=== PATIENT | female | born 1975 | race Caucasian/White ===

== ENCOUNTER 2017-03-08 11:39 | Inpatient (IN) | payer MEDICAID, SELFPAY ==
[2017-03-08] VITALS (10 sets, daily range): BP systolic 137–176; BP diastolic 81–116; PULSE 91–111; RESP 13–20; TEMP 36.4–37.2; O2SAT 96–100; BMI 43.7; BMI 43.8; BMI 43.0
--- NOTE | 2017-03-08 12:05 | EKG12_ITS ---
Test Reason : ABN LABS Blood Pressure : / mmHG Vent. Rate : 099 BPM Atrial Rate : 099 BPM P-R Int : 126 ms QRS Dur : 094 ms QT Int : 352 ms P-R-T Axes : 029 028 070 degrees QTc Int : 451 ms Normal sinus rhythm Septal infarct ,age undetermined Abnormal ECG Confirmed by JUAN JOSE BRADSHAW ([id number]), market editor JACOBO GILLILAND ([id number]) on 03/11/2017 4:44:44 PM Referred By: JERRY Confirmed By:JUAN JOSE BRADSHAW
[2017-03-08] MEDS: 0.9% Normal Saline 1,000 ML 150 ML IV ×3 (12:44→23:48)
[2017-03-08 12:54] LABS: Absolute Lymphocyte Count 1.17 X10^3/ul (0.83-4.51); Absolute Neutrophil Count 7.9 X10^3/uL (2.0-7.7); Basophil# 0.02 X10^3/uL; Basophil% 0.2 % (0-1); Eosinophil# 0.19 X10^3/uL; Eosinophils% 1.9 % (0-5); Hematocrit 25.5 % (37-47); Hemoglobin 9.1 g/dl (12.0-15.0); Lymphocyte # 1.17 X10^3/ul (4.0); Lymphocyte % 11.6 % (19-41); Mean Corp Hgb Conc 35.7 g/gl (32-36); Mean Corpuscular Hgb 25.1 pg (27.0-32.0); Mean Corpuscular Volume 70.4 fL (81-99); Mean Platelet Vol. 8.7 fl (6.2-12.0); Monocyte# 0.73 X10^3/uL; Monocyte% 7.3 % (0-10); Neutrophil # 7.92 X10^3/uL (2.7-7.7); Neutrophil % 78.7 % (47-70); Platelet Count 355 K/mm3 (150-450); RBC Distribution Width CV 12.1 % (11.6-14.6); RBC Distribution Width SD 30.3 fl (35.1-43.9); Red Blood Count 3.62 M/mm3 (4.2-5.4); White Blood Count 10.1 K/mm3 (4.4-11.0)
[2017-03-08 13:03] LABS: Anion Gap 14 (5-15); BUN 70 mg/dL (7-18); BUN/Creat Ratio 9.5 RATIO (10-20); Calcium,Total 9.4 mg/dL (8.5-10.1); Chloride 100 mmol/L (98-107); Creatinine, Serum 7.38 mg/dL (0.55-1.02); EST Glomerular Filtration Rate 6 mL/min (>60); Est Glom Filt Rate - Afr Amer 8 mL/min (>60); Estimated Creatinine Clearance 7.93 ml/min; Glucose 281 mg/dL (70-110); Potassium 5.1 mmol/L (3.5-5.1); Sodium Level 130 mmol/L (136-145)
[2017-03-08 13:10] LABS: Differential Indicated SCAN CRITERIA MET; POSITIVE COUNT NO; POSITIVE DIFFERENTIAL NO; POSITIVE MORPHOLOGY YES
[2017-03-08 13:53] LABS: Hypochromasia 1+
[2017-03-08 14:36] LABS: Mucous, Urine 0 SEEN /hpf (<or=2+)
[2017-03-08 14:50] LABS: Color, Urine Yellow (Yellow); Glucose, Dipstick 250 mg/dl (Normal); Ketone-Dipstick Negative (Negative); Leukocyte Esterase-Dipstick 100 /ul (Negative); Nitrite-Dipstick Negative (Negative); Occult Blood-Urine 25 /ul (Negative); Protein-Dipstick 30 mg/dl (Negative); Urine Bilirubin Dipstick Negative (Negative); Urine Clarity Sl. Cloudy (Clear); Urine Urobilinogen Normal (Normal)
[2017-03-08 15:02] LABS: Squamous Epithelial Cells - UA 0-5 SEEN /hpf (5-10)
[2017-03-08 15:03] LABS: Bacteria 1+ /hpf (None Seen); Red Blood Cells-Urine 0-5 SEEN /hpf (0-5); White Blood Cells 10-25 SEEN /hpf (0-5)
--- NOTE | 2017-03-08 15:27 | ED.VISSUMM ---
- ER Visit Summary Date of Service: 03/08/17 Chief Complaint: Sent to the emergency room because of abnormal blood work History of Present Illness: The patient is a 41 F with long-standing history of diabetes has been vomiting for the past 4-5 weeks. She was scheduled for an outpatient CT of the abdomen with p.o. and IV contrast. This was canceled because her creatinine was 8.3. She has no known history of hypertension, renal failure or any other problems. She denies fever, chills or night sweats. She denies double vision, blurred vision or loss of vision. She denies sore throat. She denies cough or shortness of breath. Denies chest pain. She denies abdominal pain. She does complain of nausea and vomiting. She denies diarrhea or constipation. She denies dysuria, frequency, urgency or hematuria. She does complain of vitamin headaches. She also admits that she does not feel well. Physical Examination: Patient vitals are remarkable for a blood pressure of 176/116. She is not febrile. Head is atraumatic normocephalic. Pupils are equal round reactive. Extraocular muscles are intact. TMs are pearly white with landmarks noted. Nares patent with no drainage. Posterior pharynx without erythema or exudate. Uvula is midline. There is no dysphonia or dysphasia. Trachea is midline. There is no stridor with auscultation of the neck. Heart is regular without murmur, gallop or rub. S1 and S2 are normal. Lungs are clear to auscultation with good movement of air bilaterally. Abdomen is soft nontender. Bowel sounds are present normal. There is no CVA tenderness noted. Lower extremity exam is unremarkable. Dermatologic exam is remarkable dry skin. Patient is alert and oriented ?3. Motor is 5 over 5. Sensory is intact. DTRs are symmetric with no clonus or Babinski sign. Cranial 2 through 12 are intact. Cerebellar testing is normal. Test Results: BC is marked for microcytic anemia with an H&H 9.1 25.5 and an MCV of 75. Electrode panel was marked for sodium 130, CO2 of 16 with anion gap of 14, glucose of 281, BUN and creatinine of 70 and 7.38 respectively. Urine is consistent with infection. Culture was sent. EKG revealed a sinus rhythm rate of 99 with decreased anterior force. Emergency Department Course and Treatment: IV fluids, 1 g of Rocephin IV piggyback. Workup included a CBC, BMP UA looking for casts. EKG was obtained looking for evidence of hyperkalemia insert creatinine is elevated. Treatment Plan: Hospitalist was paged. She requested that I contact nephrology. I did speak with the stripper color who will see the patient. Disposition: Admit med/surge unit Impression: 1. Acute kidney injury 2. Acute urinary tract infection 3. Hypertension nonhypertensive patient 4. Nausea and vomiting suspect gastroparesis 5. Microcytic anemia. 6. Hyperglycemia and type II diabetic This note was generated with [facility] dictation software. It may contain incorrect words, spelling, and punctuation that were not noted in review of the chart prior to signing ED Disposition - Plan for ED Patient: Chief Complaint: Abn Labs Referrals: Jessica Ayala NP-C [Primary Care Provider] -
--- NOTE | 2017-03-08 15:30 | ED.DCSUM_ITS ---
- ER Visit Summary Date of Service: 03/08/17 Chief Complaint: Sent to the emergency room because of abnormal blood work History of Present Illness: The patient is a 41 F with long-standing history of diabetes has been vomiting for the past 4-5 weeks. She was scheduled for an outpatient CT of the abdomen with p.o. and IV contrast. This was canceled because her creatinine was 8.3. She has no known history of hypertension, renal failure or any other problems. She denies fever, chills or night sweats. She denies double vision, blurred vision or loss of vision. She denies sore throat. She denies cough or shortness of breath. Denies chest pain. She denies abdominal pain. She does complain of nausea and vomiting. She denies diarrhea or constipation. She denies dysuria, frequency, urgency or hematuria. She does complain of vitamin headaches. She also admits that she does not feel well. Physical Examination: Patient vitals are remarkable for a blood pressure of 176/ 116. She is not febrile. Head is atraumatic normocephalic. Pupils are equal round reactive. Extraocular muscles are intact. TMs are pearly white with landmarks noted. Nares patent with no drainage. Posterior pharynx without erythema or exudate. Uvula is midline. There is no dysphonia or dysphasia. Trachea is midline. There is no stridor with auscultation of the neck. Heart is regular without murmur, gallop or rub. S1 and S2 are normal. Lungs are clear to auscultation with good movement of air bilaterally. Abdomen is soft nontender. Bowel sounds are present normal. There is no CVA tenderness noted. Lower extremity exam is unremarkable. Dermatologic exam is remarkable dry skin. Patient is alert and oriented ?3. Motor is 5 over 5. Sensory is intact. DTRs are symmetric with no clonus or Babinski sign. Cranial 2 through 12 are intact. Cerebellar testing is normal. Test Results: BC is marked for microcytic anemia with an H&H 9.1 25.5 and an MCV of 75. Electrode panel was marked for sodium 130, CO2 of 16 with anion gap of 14, glucose of 281, BUN and creatinine of 70 and 7.38 respectively. Urine is consistent with infection. Culture was sent. EKG revealed a sinus rhythm rate of 99 with decreased anterior force. Emergency Department Course and Treatment: IV fluids, 1 g of Rocephin IV piggyback. Workup included a CBC, BMP UA looking for casts. EKG was obtained looking for evidence of hyperkalemia insert creatinine is elevated. Treatment Plan: Hospitalist was paged. She requested that I contact nephrology. I did speak with the primer inserting machine adjuster who will see the patient. Disposition: Admit med/surge unit Impression: 1. Acute kidney injury 2. Acute urinary tract infection 3. Hypertension nonhypertensive patient 4. Nausea and vomiting suspect gastroparesis 5. Microcytic anemia. 6. Hyperglycemia and type II diabetic This note was generated with [employer] dictation software. It may contain incorrect words, spelling, and punctuation that were not noted in review of the chart prior to signing ED Disposition - Plan for ED Patient: Chief Complaint: Abn Labs Referrals: Jessica Ayala NP-C [Primary Care Provider] -
--- NOTE | 2017-03-08 16:01 | CT_ITS ---
STUDY: CT ABDOMEN AND PELVIS WITHOUT CONTRAST REASON FOR EXAM: Female, 41 years old. Low back pain RADIATION DOSAGE (If Supplied By Facility): CTDIvol = ( 22.32 ) mGy, DLP = ( 1093.13 ) mGycm TECHNIQUE: Transaxial images were obtained from the dome of the diaphragm to the symphysis pubis with oral contrast, and without intravenous contrast. Sagittal and coronal images were reconstructed. Individualized dose optimization techniques were used for this CT. COMPARISON: None. FINDINGS: The visualized lung bases are unremarkable. The visualized portions of the heart are within normal limits. Normal liver. Normal gallbladder and extrahepatic biliary system. Normal spleen. Normal pancreas. Normal bilateral adrenal glands. Both kidneys are normal. Both kidneys appear edematous with mild perinephric stranding. Both kidneys show moderate hydronephrosis. Several small stones are seen within a left lower pole calyx. Moderate to marked bilateral hydroureter. Markedly distended bladder with a thickened wall. Findings could represent bladder outlet obstruction and there may be cystitis. Normal visualized stomach. Normal small intestine. There are multiple colonic diverticula consistent with diverticulosis. The appendix is visualized and appears normal. Normal abdominal aorta. Normal inferior vena cava. There is borderline retroperitoneal lymphadenopathy with enlarged nodes no greater than 10mm in the short axis diameter. Normal visualized uterus. Normal abdominal wall. Normal osseous structures. CT/Abdomen/Pelvis without Cont IMPRESSION: Markedly distended bladder with a thickened wall. Moderate bilateral hydronephrosis and hydroureter. Question bladder outlet obstruction. Electronically Signed: Galdino cShulte MD at 17:02 EST , Service support ,
--- NOTE | 2017-03-08 16:06 | PCM.HP.STD ---
Problem List (1) Acute kidney injury Status: Acute (2) Type II diabetes mellitus Status: Chronic Qualifiers: Diabetes mellitus complication status: with unspecified complications Diabetes mellitus bed bug exterminator insulin use: with bed bug exterminator use Qualified Code(s): E11.8 - Type 2 diabetes mellitus with unspecified complications; Z79.4 - terminal operator (current) use of insulin; Z79.4 - terminal operator (current) use of insulin; Z79.4 - terminal operator (current) use of insulin; Z79.4 - terminal operator (current) use of insulin (3) Nausea and vomiting Status: Acute Qualifiers: Vomiting Intractability: unspecified (4) Coronary artery disease Status: Acute Qualifiers: Coronary Disease-Associated Artery/Lesion type: unspecified vessel or lesion type Associated angina: angina presence unspecified (5) Chronic low back pain Status: Chronic Qualifiers: Sciatica laterality: sciatica laterality unspecified History of Present Illness Date of Admission: 03/08/17 Chief Complaint: Abnormal labs The patient is a 41 year old F with past medical history of type 2 DM, uncontrolled, on insulin, history of CAD status post remote stents, chronic low back pain comes in because of abnormal blood work. Patient was following up with the housing grant analyst for persistent nausea and vomiting ongoing for >4-5 weeks. Asked to do a CT scan of the abdomen, and had taken in all the oral contrast. She was waiting to do the CT scan when she was told that her labs were abnormal. Her creatinine was 8.3. Patient gets most of her care from the [facility]. She admits to use of ibuprofen regularly for chronic low back pain, and has been having persistent nausea and vomiting, the last time she vomited was 2 days ago. Denied any fever or chills or shortness of breath. She denied any chest pain or dizziness or palpitations. Eyes any dysuria or frequency Vitals in the ED showed T 97.5F, HR 101, BP 152/101, RR 16, Spo2 100%. Admitting blood work shows WBC of 10.1, Hb of 9.1, platelets 355, sodium 130, potassium 5.1, chloride 100, bicarbonate 16, BUN 70, creatinine 7.38. Shows slightly cloudy urine with positive glucosuria, negative nitrites, elevated leukocyte esterase, WBC of 10-25. Past Medical History Past Medical History (Chronic Problems): Chronic Problems Type II diabetes mellitus (Chronic) Chronic low back pain (Chronic) Allergies No Known Allergies Allergy (Verified 03/08/17 11:45) Home Medications: Ambulatory Orders Medication Instructions Recorded Duloxetine Hcl [Cymbalta] 60 mg PO DAILY 03/08/17 Glimepiride [Amaryl] 4 mg PO DAILY 03/08/17 Insulin Glargine,Hum.rec.anlog 20 unit SQ QHS 03/08/17 [Lantus] Metformin(XR) [Glucophage Xr] 1,000 mg PO DAILY 03/08/17 Surgical History: no surgical history Psychiatric History: No pertinent psych hx HEEL CASER History: No pertinent HEEL CASER history Lives: Alone Smoking Status: Never smoker Tobacco Use: Non-smoker Alcohol: None Drugs: None - *Family History Maternal History Items: Unknown Review of Systems Constitutional: Denies: Anorexia, Chills, Fever, Night Sweats, Malaise, Weakness, Weight Change Eyes: Denies: Blurred vision, Cataracts, Conjunctivae Inflammation HEENT: Denies: Difficulty Hearing, Difficulty Swallowing, Head Aches, Hearing Changes, Nasal bleeding, Nasal Congestion, Sinus Congestion, Sinus Drainage Cardiovascular: Denies: Chest Pain, Claudication, Chest Pressure, Chest Tightness, Orthopnea, Palpitations, Paroxysmal Noc. Dyspnea Respiratory: Denies: Cough, Hemoptysis, Pleuritic Pain, Shortness of Breath, Shortness of breath at rest, Shortness of breath upon exertion, Sputum production Gastrointestinal: Reports: Nausea, Vomiting. Denies: Abdominal Pain Genitourinary: Denies: Dysuria, Frequency, Incontinence, Nocturia Musculoskeletal: Denies: Arm Pain, Back Pain, Joint Pain, Joint stiffness, Joint swelling, Joint Tenderness Skin: Denies: Dryness, Pruritis, Rash, Wounds Neurological: Denies: Difficulty swallowing, Focal weakness, Numbness, Tingling Psychiatric: Denies: Anxiety, Depression, Homicidal Ideations, Suicidal Ideations Hematologic/ Lymphatic: Denies: Easy Bruising, Easy Bleeding VTE Information - Inpt Only VTE Present on Admission: No VTE Mechan Device Prophylaxis: None VTE Pharm Prophylaxis ordered?: Yes Patient Problems: Active and Suspected Problems Acute kidney injury (Acute) Nausea and vomiting (Acute) Coronary artery disease (Acute) - Physical Exam General: Alert, Oriented x3, Cooperative, No apparent distress HEENT: Atraumatic, PERRLA, EOMI, Normocephalic Oral: Moist Mucosa Neck: Supple Lungs: Clear to auscultation, Normal air movement Cardiovascular: Regular rate, Regular Rhythm, Normal S1, Normal S2, No murmurs Abdomen: Bowel Sounds Present, Soft, Non Tender, Non-Distended, No Hepato-splenomegaly Extremities: No edema Skin: - - Dry skin Musculoskeletal: No Tenderness to Palpation of Joints or Extremities Neurological: Cranial nerves II-XII grossly intact, Neuro grossly intact, Motor Exam 5/5 strength throughout Psych/Mental Status: Normal Affect, Appropriate Vital Signs Temp Pulse Resp BP Pulse Ox 97.5 F L 100 13 152/102 H 99 03/08/17 12:45 03/08/17 16:00 03/08/17 16:00 03/08/17 16:00 03/08/17 16:00 Oxygen Delivery Method Room Air Weight: 108.5 kg Body Mass Index (BMI) 43.7 Laboratory Tests Past 24 Hrs 03/08/17 03/08/17 03/08/17 12:40 12:40 14:25 WBC 10.1 RBC 3.62 L Hgb 9.1 L Hct 25.5 L MCV 70.4 L MCH 25.1 L MCHC 35.7 RDW 12.1 RDW Differential 30.3 L Plt Count 355 MPV 8.7 Immature Gran % (Auto) 0.300 Neut % (Auto) 78.7 H Lymph % (Auto) 11.6 L [place] % (Auto) 7.3 Eos % (Auto) 1.9 Baso % (Auto) 0.2 Absolute Neuts (auto) 7.9 H Absolute Lymphs (auto) 1.17 Total Counted Not Reportable Hypochromasia 1+ Sodium 130 L Potassium 5.1 Chloride 100 Carbon Dioxide 16.0 L Anion Gap 14 BUN 70 H Creatinine 7.38 H Estim Creat Clear Calc 7.93 Est GFR (MDRD) Af Amer 8 L Est GFR (MDRD) Non-Af 6 L BUN/Creatinine Ratio 9.5 L Glucose 281 H Calcium 9.4 Urine Color Yellow Urine Clarity Sl. Cloudy Urine pH 6.0 Ur Specific [place] 1.010 Urine Protein 30 H Urine Glucose (UA) 250 H Urine Ketones Negative Urine Occult Blood 25 H Urine Nitrite Negative Urine Bilirubin Negative Urine Urobilinogen Normal Ur Leukocyte Esterase 100 H Urine RBC 0-5 SEEN Urine WBC 10-25 SEEN Ur Squamous Epith Cells 0-5 SEEN Urine Bacteria 1+ Urine Mucus 0 SEEN Assessment/Plan Active and Suspected Problems Acute kidney injury (Acute) Nausea and vomiting (Acute) Coronary artery disease (Acute) 41 year old F with past medical history of type 2 DM, uncontrolled, on insulin, history of CAD status post remote stents, chronic low back pain comes in because of abnormal blood work. 1. Acute kidney injury, in a patient with normal creatinine, likely secondary to NSAIDs versus severe dehydration. Plan: Admit to PCU, monitor on telemetry, nephrology consult - Dr. Benedict, urine sodium, urine creatinine, ultrasound of the kidneys and bladder, IV fluids, repeat blood work in a.m. 2. Nausea and vomiting, in a known diabetic, likely due to gastroparesis, will put on Zofran as needed, continue to monitor vitals closely 3. Type 2 DM, on insulin and metformin, would hold metformin, will continue on 10 units of levemir, continue on insulin sliding scale 4. CAD s/p remote stent, not on aspirin 5. Depression, on cymbalta 6. Chronic low back pain, was on NSAIDS, will hold for now, will give tramadol prn 7. DVT PPx - Heparin SC
--- NOTE | 2017-03-08 16:17 | HP.PCM_ITS ---
Problem List (1) Acute kidney injury Status: Acute (2) Type II diabetes mellitus Status: Chronic Qualifiers: Diabetes mellitus complication status: with unspecified complications Diabetes mellitus ferry terminal agent insulin use: with ferry terminal agent use Qualified Code(s) : E11.8 - Type 2 diabetes mellitus with unspecified complications; Z79.4 - detention (current) use of insulin; Z79.4 - detention (current) use of insulin; Z79.4 - detention (current) use of insulin; Z79.4 - vermin exterminator (current) use of insulin (3) Nausea and vomiting Status: Acute Qualifiers: Vomiting Intractability: unspecified (4) Coronary artery disease Status: Acute Qualifiers: Coronary Disease-Associated Artery/Lesion type: unspecified vessel or lesion type Associated angina: angina presence unspecified (5) Chronic low back pain Status: Chronic Qualifiers: Sciatica laterality: sciatica laterality unspecified History of Present Illness Date of Admission: 03/08/17 Chief Complaint: Abnormal labs The patient is a 41 year old F with past medical history of type 2 DM, uncontrolled, on insulin, history of CAD status post remote stents, chronic low back pain comes in because of abnormal blood work. Patient was following up with the voyage management system operator for persistent nausea and vomiting ongoing for >4-5 weeks. Asked to do a CT scan of the abdomen, and had taken in all the oral contrast. She was waiting to do the CT scan when she was told that her labs were abnormal. Her creatinine was 8.3. Patient gets most of her care from the [facility]. She admits to use of ibuprofen regularly for chronic low back pain, and has been having persistent nausea and vomiting, the last time she vomited was 2 days ago. Denied any fever or chills or shortness of breath. She denied any chest pain or dizziness or palpitations. Eyes any dysuria or frequency Vitals in the ED showed T 97.5F, HR 101, BP 152/101, RR 16, Spo2 100%. Admitting blood work shows WBC of 10.1, Hb of 9.1, platelets 355, sodium 130, potassium 5.1, chloride 100, bicarbonate 16, BUN 70, creatinine 7.38. Shows slightly cloudy urine with positive glucosuria, negative nitrites, elevated leukocyte esterase, WBC of 10-25. Past Medical History Past Medical History (Chronic Problems): Chronic Problems Type II diabetes mellitus (Chronic) Chronic low back pain (Chronic) Allergies No Known Allergies Allergy (Verified 03/08/17 11:45) Home Medications: Ambulatory Orders Medication Instructions Recorded Duloxetine Hcl [Cymbalta] 60 mg PO DAILY 03/08/17 Glimepiride [Amaryl] 4 mg PO DAILY 03/08/17 Insulin Glargine,Hum.rec.anlog 20 unit SQ QHS 03/08/17 [Lantus] Metformin(XR) [Glucophage Xr] 1,000 mg PO DAILY 03/08/17 Surgical History: no surgical history Psychiatric History: No pertinent psych hx ROUTE DELIVERY CLERK History: No pertinent ROUTE DELIVERY CLERK history Lives: Alone Smoking Status: Never smoker Tobacco Use: Non-smoker Alcohol: None Drugs: None - *Family History Maternal History Items: Unknown Review of Systems Constitutional: Denies: Anorexia, Chills, Fever, Night Sweats, Malaise, Weakness , Weight Change Eyes: Denies: Blurred vision, Cataracts, Conjunctivae Inflammation HEENT: Denies: Difficulty Hearing, Difficulty Swallowing, Head Aches, Hearing Changes, Nasal bleeding, Nasal Congestion, Sinus Congestion, Sinus Drainage Cardiovascular: Denies: Chest Pain, Claudication, Chest Pressure, Chest Tightness, Orthopnea, Palpitations, Paroxysmal Noc. Dyspnea Respiratory: Denies: Cough, Hemoptysis, Pleuritic Pain, Shortness of Breath, Shortness of breath at rest, Shortness of breath upon exertion, Sputum production Gastrointestinal: Reports: Nausea, Vomiting. Denies: Abdominal Pain Genitourinary: Denies: Dysuria, Frequency, Incontinence, Nocturia Musculoskeletal: Denies: Arm Pain, Back Pain, Joint Pain, Joint stiffness, Joint swelling, Joint Tenderness Skin: Denies: Dryness, Pruritis, Rash, Wounds Neurological: Denies: Difficulty swallowing, Focal weakness, Numbness, Tingling Psychiatric: Denies: Anxiety, Depression, Homicidal Ideations, Suicidal Ideations Hematologic/ Lymphatic: Denies: Easy Bruising, Easy Bleeding VTE Information - Inpt Only VTE Present on Admission: No VTE Mechan Device Prophylaxis: None VTE Pharm Prophylaxis ordered?: Yes Patient Problems: Active and Suspected Problems Acute kidney injury (Acute) Nausea and vomiting (Acute) Coronary artery disease (Acute) - Physical Exam General: Alert, Oriented x3, Cooperative, No apparent distress HEENT: Atraumatic, PERRLA, EOMI, Normocephalic Oral: Moist Mucosa Neck: Supple Lungs: Clear to auscultation, Normal air movement Cardiovascular: Regular rate, Regular Rhythm, Normal S1, Normal S2, No murmurs Abdomen: Bowel Sounds Present, Soft, Non Tender, Non-Distended, No Hepato- splenomegaly Extremities: No edema Skin: - - Dry skin Musculoskeletal: No Tenderness to Palpation of Joints or Extremities Neurological: Cranial nerves II-XII grossly intact, Neuro grossly intact, Motor Exam 5/5 strength throughout Psych/Mental Status: Normal Affect, Appropriate Vital Signs Temp Pulse Resp BP Pulse Ox 97.5 F L 100 13 152/102 H 99 03/08/17 12:45 03/08/17 16:00 03/08/17 16:00 03/08/17 16:00 03/08/17 16:00 Oxygen Delivery Method Room Air Weight: 108.5 kg Body Mass Index (BMI) 43.7 Laboratory Tests Past 24 Hrs 03/08/17 03/08/17 03/08/17 12:40 12:40 14:25 WBC 10.1 RBC 3.62 L Hgb 9.1 L Hct 25.5 L MCV 70.4 L MCH 25.1 L MCHC 35.7 RDW 12.1 RDW Differential 30.3 L Plt Count 355 MPV 8.7 Immature Gran % (Auto) 0.300 Neut % (Auto) 78.7 H Lymph % (Auto) 11.6 L [place] % (Auto) 7.3 Eos % (Auto) 1.9 Baso % (Auto) 0.2 Absolute Neuts (auto) 7.9 H Absolute Lymphs (auto) 1.17 Total Counted Not Reportable Hypochromasia 1+ Sodium 130 L Potassium 5.1 Chloride 100 Carbon Dioxide 16.0 L Anion Gap 14 BUN 70 H Creatinine 7.38 H Estim Creat Clear Calc 7.93 Est GFR (MDRD) Af Amer 8 L Est GFR (MDRD) Non-Af 6 L BUN/Creatinine Ratio 9.5 L Glucose 281 H Calcium 9.4 Urine Color Yellow Urine Clarity Sl. Cloudy Urine pH 6.0 Ur Specific [place] 1.010 Urine Protein 30 H Urine Glucose (UA) 250 H Urine Ketones Negative Urine Occult Blood 25 H Urine Nitrite Negative Urine Bilirubin Negative Urine Urobilinogen Normal Ur Leukocyte Esterase 100 H Urine RBC 0-5 SEEN Urine WBC 10-25 SEEN Ur Squamous Epith Cells 0-5 SEEN Urine Bacteria 1+ Urine Mucus 0 SEEN Assessment/Plan Active and Suspected Problems Acute kidney injury (Acute) Nausea and vomiting (Acute) Coronary artery disease (Acute) 41 year old F with past medical history of type 2 DM, uncontrolled, on insulin, history of CAD status post remote stents, chronic low back pain comes in because of abnormal blood work. 1. Acute kidney injury, in a patient with normal creatinine, likely secondary to NSAIDs versus severe dehydration. Plan: Admit to PCU, monitor on telemetry, nephrology consult - Dr. Benedict, urine sodium, urine creatinine, ultrasound of the kidneys and bladder, IV fluids, repeat blood work in a.m. 2. Nausea and vomiting, in a known diabetic, likely due to gastroparesis, will put on Zofran as needed, continue to monitor vitals closely 3. Type 2 DM, on insulin and metformin, would hold metformin, will continue on 10 units of levemir, continue on insulin sliding scale 4. CAD s/p remote stent, not on aspirin 5. Depression, on cymbalta 6. Chronic low back pain, was on NSAIDS, will hold for now, will give tramadol prn 7. DVT PPx - Heparin SC
[2017-03-08] MEDS: Ceftriaxone 1 GM/50 ML BAG IV (16:36)
[2017-03-08] MEDS: Labetalol 100 MG/20 ML Vial 10 MG IV (16:37)
--- NOTE | 2017-03-08 18:02 | US_ITS ---
STUDY: RENAL ULTRASOUND - COMPLETE REASON FOR EXAM: Female, 41 years old. Acute renal failure. TECHNIQUE: Ultrasound evaluation of the kidneys was performed with real-time and static carey-scale imaging. COMPARISON: CT scan of earlier today which showed massive distention of the bladder.. FINDINGS: RIGHT KIDNEY: Normal location of the right kidney, which is normal in size. The right kidney measures 12.3 x 6.1 x 5.2 cm. There is a normal cortex of the right kidney. The renal cortex measures 1.5 cm. There is no right renal mass or cyst. There are no right renal calculi. There is moderate hydronephrosis of the right kidney. DISTAL RIGHT URETER: There is non-visualization of the distal right ureter. There is no demonstrated right ureterovesical junction calculus. There is no demonstrated right ureteral jet. LEFT KIDNEY: Normal location of the left kidney, which is normal in size. The left kidney measures 12.6 x 6.7 x 6.3 cm. There is a normal cortex of the left kidney. The renal cortex measures 1.8 cm. There is no left renal mass or cyst. There is an 8 mm stone in the lower pole. There is moderate hydronephrosis of the left kidney. DISTAL LEFT URETER: There is non-visualization of the distal left ureter. There is no demonstrated left ureterovesical junction calculus. There is a visualized left ureteral jet. BLADDER: There is a Ross catheter in the bladder. The distended urinary bladder has a volume of 424 ml. There is diffuse thickening of the bladder wall measuring 1 cm, and there is echogenic material or mass in the bladder. Cystoscopy recommended. US/Kidney and Bladder IMPRESSION: Continued hydronephrosis of both kidneys status post Ross catheter. Abnormal bladder with a thickened wall and intraluminal echogenic material or mass. Cystoscopy recommended. Electronically Signed: Galdino Schulte MD at 21:31 EST , Service support ,
--- NOTE | 2017-03-08 18:02 | ECHOD_ITS ---
Reason For Study: CAD/ASHD Procedure This was a 2D Doppler, Color Flow transthoracic echocardiogram. Technically difficult study, patient scanned sitting upright due to nausea. Exam performed portable in patient room. Left Ventricle Normal size and thickness. The estimated ejection fraction is 65 %. Stage 1 diastolic dysfunction. No regional wall motion abnormalities noted. Right Ventricle Normal size and thickness. Normal systolic function. Atria Normal left atrium. Normal right atrium. Normal atrial septum. Mitral Valve The mitral valve is structurally normal. No prolapse or stenosis seen. Tricuspid Valve Normal tricuspid valve. Unable to estimate RV systolic pressure/pulmonary artery pressure due to technically difficult study. Aortic Valve Normal aortic valve. Trisinus/trileaflet aortic valve. Pulmonic Valve Normal pulmonic valve. Great Vessels Normal aortic root. Normal arch. Normal inferior vena cava. Inferior vena cava collapse with sniff. Pericardium/Pleural No pericardial effusion. MMode/2D Measurements & Calculations LVIDd: 4.5 cm IVSd: 1.2 cm LVIDs: 3.1 cm LVPWd: 1.2 cm FS: 32.4 % Time Measurements MV dec time: 0.14 sec Doppler Measurements & Calculations MV E max south: 85.8 cm/sec Lat Peak E' South: 14.0 cm/sec Med Peak E' South: 9.5 cm/sec MV A max south: 113.7 cm/sec E/E' lat: 6.1 E/E' med: 9.1 MV E/A: 0.75 Ao V2 max: 158.4 cm/sec LV V1 max: 115.0 cm/sec PA V2 max: 45.4 cm/sec Ao max P.1 mmHg LV V1 max P.3 mmHg Ao V2 mean: 95.9 cm/sec LV V1 mean P.9 mmHg Ao mean P.5 mmHg LV V1 mean: 78.5 cm/sec Ao V2 VTI: 20.4 cm LV V1 VTI: 20.8 cm Interpretation Summary The estimated ejection fraction is 65 %. Stage 1 diastolic dysfunction. Unable to estimate RV systolic pressure/pulmonary artery pressure due to technically difficult study. The study was technically difficult. There is no comparison study available. Ordering Physician: Jaimee Horner Referring Physician: NIC MARQUES Performed By: Saleem Yates RCS
[2017-03-08 19:06] LABS: Bedside Glucose 233 mg/dL (70-110)
[2017-03-08 20:15] LABS: Ferritin 442 ng/mL (8-252); Iron 34 ug/dL (50-170); Iron Binding Capacity,Total 214 ug/dL (250-450); PERCENT IRON SATURATION 15.9 % (15.0-55.0)
[2017-03-08 20:34] LABS: Urine Sodium 23 mmol/L (Not Establ.)
[2017-03-08] MEDS: Heparin Injection 5,000 UNITS/ML Syringe 5000 UNITS SC (21:17)
[2017-03-08] MEDS: Famotidine 20 MG Tablet PO (21:18)
[2017-03-08 21:41] LABS: Bedside Glucose 284 mg/dL (70-110)
[2017-03-09] VITALS (11 sets, daily range): BP systolic 125–158; BP diastolic 65–94; PULSE 102–111; RESP 16–18; TEMP 36.7–37.2; O2SAT 96–100
[2017-03-09] MEDS: 0.9% Normal Saline 1,000 ML 150 ML IV ×2 (06:31→13:15)
[2017-03-09 06:56] LABS: Bedside Glucose 251 mg/dL (70-110)
[2017-03-09 06:59] LABS: Hematocrit 20.8 % (37-47); Hemoglobin 7.3 g/dl (12.0-15.0); Mean Corp Hgb Conc 35.1 g/gl (32-36); Mean Corpuscular Volume 71.2 fL (81-99); Platelet Count 306 K/mm3 (150-450); RBC Distribution Width SD 30.2 fl (35.1-43.9); Red Blood Count 2.92 M/mm3 (4.2-5.4); White Blood Count 9.2 K/mm3 (4.4-11.0)
[2017-03-09 07:00] LABS: Scan Indicated on CBC? Y/N YES- FLAGS NOTED
[2017-03-09 07:53] LABS: Anion Gap 12 (5-15); BUN 61 mg/dL (7-18); BUN/Creat Ratio 10.7 RATIO (10-20); Calcium,Total 8.5 mg/dL (8.5-10.1); Chloride 107 mmol/L (98-107); Creatinine, Serum 5.69 mg/dL (0.55-1.02); EST Glomerular Filtration Rate 9 mL/min (>60); Est Glom Filt Rate - Afr Amer 11 mL/min (>60); Estimated Creatinine Clearance 10.29 ml/min; Glucose 234 mg/dL (70-110); Potassium 4.6 mmol/L (3.5-5.1); Sodium Level 134 mmol/L (136-145)
[2017-03-09] MEDS: Famotidine 20 MG Tablet PO ×2 (09:14→21:42)
[2017-03-09] MEDS: DULoxetine Hcl 60 MG Capsule PO (09:14)
[2017-03-09 11:16] LABS: Bedside Glucose 401 mg/dL (70-110)
--- NOTE | 2017-03-09 11:49 | PCM.PN.HOSP ---
Patient Problems: Active and Suspected Problems Acute kidney injury (Acute) Nausea and vomiting (Acute) Coronary artery disease (Acute) Subjective: Ms Malik is a 41 year old F with past medical history of type 2 DM, uncontrolled, on insulin, history of CAD status post remote stents, chronic low back pain who was admitted due to abnormal bloodwork. She is being managed for FRANSICO. Initial labs on admission showed Hb of 9.1, platelets 355, sodium 130, potassium 5.1, chloride 100, bicarbonate 16, BUN 70, creatinine 7.38. Shows slightly cloudy urine with positive glucosuria, negative nitrites, elevated leukocyte esterase, WBC of 10-25. She had a history significant for chronic ibuprofen use for back pain. CT of abdomen done showed bilateral mild hydronephrosis and hydroureters, and an enlarged, thickened bladder. Creatinine on admission was 8.3, and is down to 5.9 today. Cr was normal 2 years ago. Objective: Patient seen and examined today. Nurse complains of bloody urine in the catheter. Patient complains of discomfort with a catheter and once the catheter out. Bloody urine noted in the catheter. Patient denies previous history of such blood in her catheter and complains that the insertion of the catheter was probably traumatic in the ED yesterday. Hemoglobin has dropped today from 9 to 7. She has no other focus of bleeding. Patient denies any other complaints and is actually looking forward to going home. She admits to not being compliant with her diabetes medication Wells at home and she attributes this to depression. Vitals/I&O's: Vital Signs Temp Pulse Resp BP Pulse Ox 98.8 F 105 H 16 128/65 H 100 03/09/17 09:28 03/09/17 11:03 03/09/17 09:28 03/09/17 09:28 03/09/17 09:28 Oxygen Delivery Method Room Air Weight: 235 lb 7.259 oz Body Mass Index (BMI) 43.0 Intake and Output for Last 24 Hours 03/07/17 03/08/17 03/09/17 23:59 23:59 23:59 Intake Total 2642 / 2642 Output Total 1500 / 1500 3050 / 3050 Balance -1500 / -1500 -408 / -408 General: Alert, Oriented x3, Cooperative, No apparent distress HEENT: Atraumatic, PERRLA Oral: Moist Mucosa Neck: Supple, No JVD Lungs: Clear to auscultation, Normal air movement Cardiovascular: Regular rate, Regular Rhythm, Normal S1, Normal S2, No murmurs Abdomen: Bowel Sounds Present, Soft, Non Tender, Non-Distended, No Hepato-splenomegaly Extremities: No clubbing, No cyanosis, No edema Skin: No rashes Neurological: Cranial nerves II-XII grossly intact, Neuro grossly intact Psych/Mental Status: Appropriate, Alert and oriented to time, place, person, mood and affect Laboratory Results 03/08/17 18:59: POC Glucose 233 H 03/08/17 19:10: Hemoglobin A1c 15.0 H 03/08/17 19:10: Iron 34 L, TIBC 214 L, Iron Saturation 15.9, Ferritin 442 H 03/08/17 19:10: Troponin I < 0.02 03/08/17 21:14: POC Glucose 284 H 03/08/17 23:06: Troponin I < 0.02 03/09/17 06:30: Sodium 134 L, Potassium 4.6, Chloride 107, Carbon Dioxide 15.0 L, Anion Gap 12, BUN 61 H, Creatinine 5.69 H, Estim Creat Clear Calc 10.29, Est GFR (MDRD) Af Amer 11 L, Est GFR (MDRD) Non-Af 9 L, BUN/Creatinine Ratio 10.7, Glucose 234 H, Calcium 8.5, Troponin I < 0.02 03/09/17 06:30: WBC 9.2, RBC 2.92 L, Hgb 7.3 L, Hct 20.8 L, MCV 71.2 L, MCH 25.0 L, MCHC 35.1, RDW 12.0, RDW Differential 30.2 L, Plt Count 306, MPV 9.0, Differential Comment 03/09/17 06:41: POC Glucose 251 H 03/09/17 11:07: POC Glucose 401 H Current Medications Dextrose (D50w Syringe) 0 gm IV X1 PRN; Protocol PRN Reason: Hypoglycemia Duloxetine HCl (Cymbalta) 60 mg PO DAILY [facility] Last Admin: 03/09/17 09:14 Dose: 60 mg Famotidine (Pepcid) 20 mg PO BID [facility] Last Admin: 03/09/17 09:14 Dose: 20 mg Glucagon () 1 mg IM .X1 PRN PRN Reason: Hypoglycemia Heparin Sodium (Porcine) () 5,000 units SC BID [facility] Last Admin: 03/09/17 09:14 Dose: Not Given Hydralazine HCl (Apresoline) 5 mg IV Q6H PRN PRN PRN Reason: blood pressure Sodium Chloride () 1,000 mls @ 150 mls/hr IV .Q6H40M [facility] Stop: 03/09/17 14:01 Last Admin: 03/09/17 06:31 Dose: 150 mls/hr Insulin Aspart (Novolog Flexpen ([facility])) 0 units SC ACHS [facility] PRN Reason: Protocol Last Admin: 03/09/17 11:09 Dose: 4 units Insulin Detemir (Levemir ([facility])) 20 units SC QHS [facility] Magnesium Hydroxide (Milk Of Magnesia) 30 ml PO DAILY PRN PRN Reason: Constipation Ondansetron HCl (Zofran) 4 mg IV Q6H PRN PRN PRN Reason: NAUSEA/VOMITING Psyllium Hydrophilic Mucilloid (Metamucil) 1 packet PO DAILY PRN PRN PRN Reason: CONSTIPATION Sodium Chloride () 5 - 30 ml IV UD PRN PRN Reason: SALINE FLUSH Assessment/Plan Active and Suspected Problems Acute kidney injury (Acute) Nausea and vomiting (Acute) Coronary artery disease (Acute) 41 year old F with past medical history of type 2 DM, uncontrolled, on insulin, history of CAD status post remote stents, chronic low back pain comes in because of abnormal blood work. 1. Acute kidney injury likely due to an obstructive uropathy, less likely rhabdomyolysis -Patient had a normal creatinine 2 years ago. Admitting creatinine was around 7. Creatinine is down to 5.9 today. - patient was tachycardic overnight (HR in 100s-110s); vitals were otherwise stable -Patient does have a history of taking NSAIDs and this could be a cause of the HPI as well. However CT of the abdomen showed an enlarged thickened bladder with hydro-ureters and hydronephrosis leading to the likelihood of an obstructive uropathy. -Urine output over the last 24 hours is approximately 4 L. Nurse complains of blood in the catheter. This was also visualized during examination. -We will maintain urinary catheter in place and get urgent urology consult. -We will continue hydrating with IV fluids currently running at 150 cc/h. -Since urine analysis was positive for blood but negative for RBCs will order creatinine kinase to assess for rhabdomyolysis as a cause of the FRANSICO also. -We will monitor input and output. -will type and cross blood, due to fall in HB from 9 to 7 overnight -nephrology also on board 2. Hematuria likely due to obstructive uropathy - please refer above -urology consulted -patient's Hb fell from 9 on admission to 7 today -will continue IVF hydration to flush the kidneys -will await urology recommendations; will likely need cystoscopy 3. [place]ongap metabolic acidosis, likely due to FRANSICO -Anion gap is ~ 12 today, with bicarb of ~ 15 - may be due to RTA from FRANSICO - nephrology on board; will await recomendations 4. Type 2 DM -very poorly controlled. A1C was 15 on admission -admits to not being compliant with her meds due to depression -on insulin; metformin on hold due to FRANSICO. -currently on levemir 10IU and insulin sliding scale -nausea and vomiting have currently resolved. On Zofran prn 5. Anemia possibly due to acute blood loss from hematuria -Hb on admission was 9; down to 7 today. this could be dilutional, due to IVF administration. -iron panel was showed low iron levels of 34, low TIBC of 214 and elevated ferritin of 442, indicating anemia of chronic disease picture. -However, in light of bloody urine in catheter, will type and crossmatch blood. 6. CAD s/p remote stent placement -stable. Not on aspirin 7. Depression -on cymbalta 6. Chronic low back pain -admitted to chronic ibuprofen use for back pain. Ibuprofen on hold due to FRANSICO -on tramadol for pain 7. DVT prophylaxis - currently on heparin. Will hold heparin in light of hematuria and put on SCDs. Code Visit Inpatient E&M: 31517 Subs Hosp L3
--- NOTE | 2017-03-09 11:55 | PN_ITS ---
Patient Problems: Active and Suspected Problems Acute kidney injury (Acute) Nausea and vomiting (Acute) Coronary artery disease (Acute) Subjective: Ms Malik is a 41 year old F with past medical history of type 2 DM, uncontrolled , on insulin, history of CAD status post remote stents, chronic low back pain who was admitted due to abnormal bloodwork. She is being managed for FRANSICO. Initial labs on admission showed Hb of 9.1, platelets 355, sodium 130, potassium 5.1, chloride 100, bicarbonate 16, BUN 70, creatinine 7.38. Shows slightly cloudy urine with positive glucosuria, negative nitrites, elevated leukocyte esterase, WBC of 10-25. She had a history significant for chronic ibuprofen use for back pain. CT of abdomen done showed bilateral mild hydronephrosis and hydroureters, and an enlarged, thickened bladder. Creatinine on admission was 8.3, and is down to 5.9 today. Cr was normal 2 years ago. Objective: Patient seen and examined today. Nurse complains of bloody urine in the catheter. Patient complains of discomfort with a catheter and once the catheter out. Bloody urine noted in the catheter. Patient denies previous history of such blood in her catheter and complains that the insertion of the catheter was probably traumatic in the ED yesterday. Hemoglobin has dropped today from 9 to 7. She has no other focus of bleeding. Patient denies any other complaints and is actually looking forward to going home. She admits to not being compliant with her diabetes medication Wells at home and she attributes this to depression. Vitals/I&O's: Vital Signs Temp Pulse Resp BP Pulse Ox 98.8 F 105 H 16 128/65 H 100 03/09/17 09:28 03/09/17 11:03 03/09/17 09:28 03/09/17 09:28 03/09/17 09:28 Oxygen Delivery Method Room Air Weight: 235 lb 7.259 oz Body Mass Index (BMI) 43.0 Intake and Output for Last 24 Hours 03/07/17 03/08/17 03/09/17 23:59 23:59 23:59 Intake Total 2642 / 2642 Output Total 1500 / 1500 3050 / 3050 Balance -1500 / -1500 -408 / -408 General: Alert, Oriented x3, Cooperative, No apparent distress HEENT: Atraumatic, PERRLA Oral: Moist Mucosa Neck: Supple, No JVD Lungs: Clear to auscultation, Normal air movement Cardiovascular: Regular rate, Regular Rhythm, Normal S1, Normal S2, No murmurs Abdomen: Bowel Sounds Present, Soft, Non Tender, Non-Distended, No Hepato- splenomegaly Extremities: No clubbing, No cyanosis, No edema Skin: No rashes Neurological: Cranial nerves II-XII grossly intact, Neuro grossly intact Psych/Mental Status: Appropriate, Alert and oriented to time, place, person, mood and affect Laboratory Results 03/08/17 18:59: POC Glucose 233 H 03/08/17 19:10: Hemoglobin A1c 15.0 H 03/08/17 19:10: Iron 34 L, TIBC 214 L, Iron Saturation 15.9, Ferritin 442 H 03/08/17 19:10: Troponin I < 0.02 03/08/17 21:14: POC Glucose 284 H 03/08/17 23:06: Troponin I < 0.02 03/09/17 06:30: Sodium 134 L, Potassium 4.6, Chloride 107, Carbon Dioxide 15.0 L , Anion Gap 12, BUN 61 H, Creatinine 5.69 H, Estim Creat Clear Calc 10.29, Est GFR (MDRD) Af Amer 11 L, Est GFR (MDRD) Non-Af 9 L, BUN/Creatinine Ratio 10.7, Glucose 234 H, Calcium 8.5, Troponin I < 0.02 03/09/17 06:30: WBC 9.2, RBC 2.92 L, Hgb 7.3 L, Hct 20.8 L, MCV 71.2 L, MCH 25.0 L, MCHC 35.1, RDW 12.0, RDW Differential 30.2 L, Plt Count 306, MPV 9.0, Differential Comment 03/09/17 06:41: POC Glucose 251 H 03/09/17 11:07: POC Glucose 401 H Current Medications Dextrose (D50w Syringe) 0 gm IV X1 PRN; Protocol PRN Reason: Hypoglycemia Duloxetine HCl (Cymbalta) 60 mg PO DAILY [facility] Last Admin: 03/09/17 09:14 Dose: 60 mg Famotidine (Pepcid) 20 mg PO BID [facility] Last Admin: 03/09/17 09:14 Dose: 20 mg Glucagon () 1 mg IM .X1 PRN PRN Reason: Hypoglycemia Heparin Sodium (Porcine) () 5,000 units SC BID [facility] Last Admin: 03/09/17 09:14 Dose: Not Given Hydralazine HCl (Apresoline) 5 mg IV Q6H PRN PRN PRN Reason: blood pressure Sodium Chloride () 1,000 mls @ 150 mls/hr IV .Q6H40M [facility] Stop: 03/09/17 14:01 Last Admin: 03/09/17 06:31 Dose: 150 mls/hr Insulin Aspart (Novolog Flexpen ([facility])) 0 units SC ACHS [facility] PRN Reason: Protocol Last Admin: 03/09/17 11:09 Dose: 4 units Insulin Detemir (Levemir ([facility])) 20 units SC QHS [facility] Magnesium Hydroxide (Milk Of Magnesia) 30 ml PO DAILY PRN PRN Reason: Constipation Ondansetron HCl (Zofran) 4 mg IV Q6H PRN PRN PRN Reason: NAUSEA/VOMITING Psyllium Hydrophilic Mucilloid (Metamucil) 1 packet PO DAILY PRN PRN PRN Reason: CONSTIPATION Sodium Chloride () 5 - 30 ml IV UD PRN PRN Reason: SALINE FLUSH Assessment/Plan Active and Suspected Problems Acute kidney injury (Acute) Nausea and vomiting (Acute) Coronary artery disease (Acute) 41 year old F with past medical history of type 2 DM, uncontrolled, on insulin, history of CAD status post remote stents, chronic low back pain comes in because of abnormal blood work. 1. Acute kidney injury likely due to an obstructive uropathy, less likely rhabdomyolysis -Patient had a normal creatinine 2 years ago. Admitting creatinine was around 7. Creatinine is down to 5.9 today. - patient was tachycardic overnight (HR in 100s-110s); vitals were otherwise stable -Patient does have a history of taking NSAIDs and this could be a cause of the HPI as well. However CT of the abdomen showed an enlarged thickened bladder with hydro-ureters and hydronephrosis leading to the likelihood of an obstructive uropathy. -Urine output over the last 24 hours is approximately 4 L. Nurse complains of blood in the catheter. This was also visualized during examination. -We will maintain urinary catheter in place and get urgent urology consult. -We will continue hydrating with IV fluids currently running at 150 cc/h. -Since urine analysis was positive for blood but negative for RBCs will order creatinine kinase to assess for rhabdomyolysis as a cause of the FRANSICO also. -We will monitor input and output. -will type and cross blood, due to fall in HB from 9 to 7 overnight -nephrology also on board 2. Hematuria likely due to obstructive uropathy - please refer above -urology consulted -patient's Hb fell from 9 on admission to 7 today -will continue IVF hydration to flush the kidneys -will await urology recommendations; will likely need cystoscopy 3. [place] metabolic acidosis, likely due to FRANSICO -Anion gap is ~ 12 today, with bicarb of ~ 15 - may be due to RTA from FRANSICO - nephrology on board; will await recomendations 4. Type 2 DM -very poorly controlled. A1C was 15 on admission -admits to not being compliant with her meds due to depression -on insulin; metformin on hold due to FRANSICO. -currently on levemir 10IU and insulin sliding scale -nausea and vomiting have currently resolved. On Zofran prn 5. Anemia possibly due to acute blood loss from hematuria -Hb on admission was 9; down to 7 today. this could be dilutional, due to IVF administration. -iron panel was showed low iron levels of 34, low TIBC of 214 and elevated ferritin of 442, indicating anemia of chronic disease picture. -However, in light of bloody urine in catheter, will type and crossmatch blood. 6. CAD s/p remote stent placement -stable. Not on aspirin 7. Depression -on cymbalta 6. Chronic low back pain -admitted to chronic ibuprofen use for back pain. Ibuprofen on hold due to FRANSICO -on tramadol for pain 7. DVT prophylaxis - currently on heparin. Will hold heparin in light of hematuria and put on SCDs. Code Visit Inpatient E&M: 93026 Subs Hosp L3
[2017-03-09 13:53] LABS: Hematocrit 21.8 % (37-47); Hemoglobin 7.4 g/dl (12.0-15.0)
[2017-03-09 14:14] LABS: CPK Total, Creatine Kinase 53 U/L (26-192)
[2017-03-09 16:22] LABS: Bedside Glucose 292 mg/dL (70-110)
--- NOTE | 2017-03-09 18:11 | CON.PCM_ITS ---
Problem List (1) Acute kidney injury Status: Acute Consultation - Renal PCP/ Referring MD: Requesting physician: [] Primary care physician: ASHTYN Fischer - History of Present Illness History of Present Illness: 41 year old F with past medical history was admitted on 03/08 for abnormal blood work which was discovered by her electronics tester. Lab showed FRANSICO with Cr 8.0 mg/dL. Patient has been having persistent nausea vomiting for 4-5 days. Also the patient has been taking ibuprofen 600 mg every other day for the last 6 weeks. Patient denied any IV contrast exposure. Patient said a schmidt cath was placed in ED yesterday with immediate 2L urine return. now she has schmidt cath which is draining bloody urine. on IVF 150 cc/hour. Kidney function is improving ROS: 12 systems review is negative today - Allergies Allergies: Allergies No Known Allergies Allergy (Verified 03/08/17 11:45) - Current Medications Current Medications: Current Medications Dextrose (D50w Syringe) 0 gm IV X1 PRN; Protocol PRN Reason: Hypoglycemia Duloxetine HCl (Cymbalta) 60 mg PO DAILY [facility] Last Admin: 03/09/17 09:14 Dose: 60 mg Famotidine (Pepcid) 20 mg PO BID [facility] Last Admin: 03/09/17 09:14 Dose: 20 mg Glucagon () 1 mg IM .X1 PRN PRN Reason: Hypoglycemia Hydralazine HCl (Apresoline) 5 mg IV Q6H PRN PRN PRN Reason: blood pressure Insulin Aspart (Novolog Flexpen (Bkc)) 0 units SC ACHS [facility] PRN Reason: Protocol Last Admin: 03/09/17 16:37 Dose: 3 units Insulin Detemir (Levemir (Bkc)) 20 units SC QHS [facility] Magnesium Hydroxide (Milk Of Magnesia) 30 ml PO DAILY PRN PRN Reason: Constipation Ondansetron HCl (Zofran) 4 mg IV Q6H PRN PRN PRN Reason: NAUSEA/VOMITING Psyllium Hydrophilic Mucilloid (Metamucil) 1 packet PO DAILY PRN PRN PRN Reason: CONSTIPATION Sodium Chloride () 5 - 30 ml IV UD PRN PRN Reason: SALINE FLUSH - Past Medical History Past Medical History (Chronic Problems): Chronic Problems Type II diabetes mellitus (Chronic) Chronic low back pain (Chronic) - Past Surgical History Surgical History: no surgical history - Social History Smoking Status: Never smoker Alcohol: None Drugs: None - Family History Maternal History Items: Unknown Patient Problems: Active and Suspected Problems Acute kidney injury (Acute) Nausea and vomiting (Acute) Coronary artery disease (Acute) - Physical Exam General: Alert, Oriented x3 HEENT: Atraumatic Oral: Moist Mucosa, Dry Mucosa Neck: Supple, No JVD Lungs: Clear to auscultation, Normal air movement, No rhonchi, No wheeze Cardiovascular: Regular rate, Regular Rhythm, Normal S1, Normal S2, No murmurs Abdomen: Bowel Sounds Present, Soft, Non Tender, Non-Distended Extremities: No clubbing, No cyanosis, No edema Skin: No rashes Musculoskeletal: No Tenderness to Palpation of Joints or Extremities Lymphatic: No Cervical, Supraclavicular, or Inguinal Adenopathy Neurological: Cranial nerves II-XII grossly intact, Neuro grossly intact Psych/Mental Status: Normal Affect Vital Signs Temp Pulse Resp BP Pulse Ox 98.6 F 106 H 16 125/75 H 96 03/09/17 17:24 03/09/17 17:24 03/09/17 17:24 03/09/17 17:24 03/09/17 17:24 Oxygen Delivery Method Room Air Weight: 106.8 kg Body Mass Index (BMI) 43.0 Intake and Output for Last 24 Hours 03/07/17 03/08/17 03/09/17 23:59 23:59 23:59 Intake Total 4527 / 4527 Output Total 1500 / 1500 5400 / 5400 Balance -1500 / -1500 -873 / -873 Laboratory Tests Past 24 Hrs 03/08/17 03/08/17 03/08/17 19:10 19:10 19:10 WBC RBC Hgb Hct MCV MCH MCHC RDW RDW Differential Plt Count MPV Differential Comment Sodium Potassium Chloride Carbon Dioxide Anion Gap BUN Creatinine Estim Creat Clear Calc Est GFR (MDRD) Af Amer Est GFR (MDRD) Non-Af BUN/Creatinine Ratio Glucose Hemoglobin A1c 15.0 H Calcium Iron 34 L TIBC 214 L Iron Saturation 15.9 Ferritin 442 H Total Creatine Kinase Troponin I < 0.02 Blood Type Antibody Screen Crossmatch 03/08/17 03/09/17 03/09/17 23:06 06:30 06:30 WBC 9.2 RBC 2.92 L Hgb 7.3 L Hct 20.8 L MCV 71.2 L MCH 25.0 L MCHC 35.1 RDW 12.0 RDW Differential 30.2 L Plt Count 306 MPV 9.0 Differential Comment Sodium 134 L Potassium 4.6 Chloride 107 Carbon Dioxide 15.0 L Anion Gap 12 BUN 61 H Creatinine 5.69 H Estim Creat Clear Calc 10.29 Est GFR (MDRD) Af Amer 11 L Est GFR (MDRD) Non-Af 9 L BUN/Creatinine Ratio 10.7 Glucose 234 H Hemoglobin A1c Calcium 8.5 Iron TIBC Iron Saturation Ferritin Total Creatine Kinase Troponin I < 0.02 < 0.02 Blood Type Antibody Screen Crossmatch 03/09/17 03/09/17 03/09/17 06:30 13:26 13:26 WBC RBC Hgb 7.4 L Hct 21.8 L MCV MCH MCHC RDW RDW Differential Plt Count MPV Differential Comment Sodium Potassium Chloride Carbon Dioxide Anion Gap BUN Creatinine Estim Creat Clear Calc Est GFR (MDRD) Af Amer Est GFR (MDRD) Non-Af BUN/Creatinine Ratio Glucose Hemoglobin A1c Calcium Iron TIBC Iron Saturation Ferritin Total Creatine Kinase 53 Troponin I Blood Type A POSITIVE Antibody Screen NEGATIVE Crossmatch See Detail POC Glucose 03/09/17 03/09/17 03/09/17 15:57 11:07 06:41 POC Glucose 292 H 401 H 251 H 03/08/17 03/08/17 21:14 18:59 POC Glucose 284 H 233 H Assessment/Plan Active and Suspected Problems Acute kidney injury (Acute) Nausea and vomiting (Acute) Coronary artery disease (Acute) 1- FRANSICO due due to post renal obstruction from DENNISON Kidney US showed thickened wall bladder with b/l hydronephrosis Cr peaked at 8.0. improving with schmidt cath placement and urine drainage. Cr today 5.4 mg/dL No need for ACCOUNT RESOLUTION SPECIALIST Avoid ACEI Watch for polyuria from tubular dysfunction after relieving the obstruction. 2- Metabolic acidosis from FRANSICO. no need for NaHCO3 replacement. Will monitor 3- Hyponatremia from poor oral intake due to nausea vomiting. improved with IVF. Now off IVF. encouraged food intake 4- Hematuria. most probably traumatic from schmidt cath placement. please consult urology service for BI. please resume IVF for continuos flushing to prevent bladder clots formation 5- DENNISON. please consult urology service 6- HTN: BP is well controlled. continue hydralazine PRN. avoid ACEI/ARB Thank you for the consult. Please don't hesitate to call my at my cell with any question Radha Britton MD [phone]
[2017-03-09 18:24] LABS: Mucous, Urine 0 SEEN /hpf (<or=2+)
[2017-03-09 18:29] LABS: Color, Urine Red (Yellow); Glucose, Dipstick 250 mg/dl (Normal); Ketone-Dipstick Negative (Negative); Leukocyte Esterase-Dipstick 25 /ul (Negative); Nitrite-Dipstick Negative (Negative); Occult Blood-Urine 250 /ul (Negative); Protein-Dipstick 500 mg/dl (Negative); Urine Bilirubin Dipstick Negative (Negative); Urine Clarity Turbid (Clear); Urine Urobilinogen Normal (Normal); Urine pH 6.5 (5.0 - 8.0)
[2017-03-09 18:37] LABS: Red Blood Cells-Urine > 100 SEEN /hpf (0-5)
[2017-03-09 18:38] LABS: White Blood Cells 10-25 SEEN /hpf (0-5)
[2017-03-09 18:39] LABS: Squamous Epithelial Cells - UA 0-5 SEEN /hpf (5-10)
[2017-03-09 18:40] LABS: Bacteria 2+ /hpf (None Seen)
--- NOTE | 2017-03-09 20:57 | PCM.CONS.B ---
Problem List (1) Acute kidney injury Status: Acute - Consult Date of Consult: 03/09/17 41-year-old female presents to the hospital with abnormal blood work she had a creatinine of 8.3 she has a history of hypertension renal failure and other medical problems she is a poorly controlled diabetic. She had a CAT scan that demonstrated severely distended bladder and bilateral hydronephrosis which was causing the elevation in the creatinine. She was admitted to the hospital because of the acute renal failure due to bilateral reflux in both kidneys. 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 Review of systems is all negative except for back pain and gross hematuria after the catheter was placed on examination she is alert and oriented ?3 cooperative, HEENT normal neck is supple lungs are clear heart regular abdomen obese and benign she has her left foot wrapped she states she has diabetic neuropathy of the foot. Laboratory work reviewed white counts normal her hemoglobin is fairly low at 7.4 her creatinine is now down to 5.69. Urine has blood in it. Vital signs are stable. She had an ultrasound that still demonstrated bilateral hydronephrosis probably from chronic obstruction but her bladder is decompressed. Assessment and plan 41-year-old female who is poorly controlled diabetic probably developed diabetic neuropathy probably has a poorly functioning bladder because of this and now has retention of urine and bilateral hydronephrosis the urine is draining well at this point she has a little bit of blood in the urine this is not uncommon after decompression of a very distended bladder I am not concerned about the blood and it should clear on its own next several days. The monitor her creatinine fortunately is going down that as possible may stabilize somewhere. Explained to the patient she may have caused permanent damage to her kidneys but what to monitor her creatinine see what happens. For now I recommend she go home with a Ross catheter she will need at least 2 weeks of catheter decompression and then she will need to learn self intermittent catheterization to monitor and manage her bladder. In the long-term. All this was explained to the patient and she had a friend with her in the hospital. Please call urology with questions. But on discharge she should go home with a Ross leg bag. - Reason for Consult acute renal failure
[2017-03-09 22:31] LABS: Bedside Glucose 235 mg/dL (70-110)
[2017-03-10] VITALS (11 sets, daily range): BP systolic 118–158; BP diastolic 72–97; PULSE 101–115; RESP 14–16; TEMP 36.7–36.9; O2SAT 96–100
[2017-03-10 06:51] LABS: Bedside Glucose 223 mg/dL (70-110)
[2017-03-10 07:01] LABS: Absolute Lymphocyte Count 1.07 X10^3/ul (0.83-4.51); Absolute Neutrophil Count 8.4 X10^3/uL (2.0-7.7); Basophil# 0.01 X10^3/uL; Basophil% 0.1 % (0-1); Differential Indicated SCAN CRITERIA MET; Eosinophil# 0.22 X10^3/uL; Eosinophils% 2.1 % (0-5); Hematocrit 21.2 % (37-47); Hemoglobin 7.2 g/dl (12.0-15.0); Lymphocyte # 1.07 X10^3/ul (4.0); Lymphocyte % 10.1 % (19-41); Mean Corpuscular Hgb 24.6 pg (27.0-32.0); Mean Corpuscular Volume 72.4 fL (81-99); Mean Platelet Vol. 8.3 fl (6.2-12.0); Monocyte# 0.91 X10^3/uL; Monocyte% 8.6 % (0-10); Neutrophil % 78.8 % (47-70); POSITIVE COUNT NO; POSITIVE DIFFERENTIAL NO; POSITIVE MORPHOLOGY YES; Platelet Count 251 K/mm3 (150-450); RBC Distribution Width CV 12.9 % (11.6-14.6); RBC Distribution Width SD 34.5 fl (35.1-43.9); Red Blood Count 2.93 M/mm3 (4.2-5.4); White Blood Count 10.6 K/mm3 (4.4-11.0)
[2017-03-10 07:22] LABS: Anion Gap 12 (5-15); BUN 47 mg/dL (7-18); BUN/Creat Ratio 11.1 RATIO (10-20); Calcium,Total 8.7 mg/dL (8.5-10.1); Chloride 111 mmol/L (98-107); Creatinine, Serum 4.24 mg/dL (0.55-1.02); EST Glomerular Filtration Rate 12 mL/min (>60); Est Glom Filt Rate - Afr Amer 15 mL/min (>60); Estimated Creatinine Clearance 13.81 ml/min; Glucose 225 mg/dL (70-110); Potassium 4.5 mmol/L (3.5-5.1); Sodium Level 137 mmol/L (136-145)
[2017-03-10 07:26] LABS: Anisocytosis 1+; Hypochromasia 1+
--- NOTE | 2017-03-10 07:41 | PCM.PN.HOSP ---
Patient Problems: Active and Suspected Problems Acute kidney injury (Acute) Nausea and vomiting (Acute) Coronary artery disease (Acute) Subjective: Ms Malik is a 41 year old F with past medical history of type 2 DM, uncontrolled, on insulin, history of CAD status post remote stents, chronic low back pain who was admitted due to abnormal bloodwork. She is being managed for FRANSICO likely due to postobstructive uropathy. Initial creatinine was around 9 on admission and has trended down to 4.[address] scan of the abdomen done showed bilateral mild hydronephrosis and hydroureters and an enlarged thickened bladder. Creatinine kinase done was around 53 ruling out rhabdomyolysis. She started having hematuria and hemoglobin fell from 9-7 and has remained stable around 7. Patient has not required transfusion of blood so far. Nephrology and urology are on board. Patient has remained stable. Objective: Patient seen and examined today. She feels well and has no complaints. She denies any fever any chills any cough or chest pain, any shortness of breath, any abdominal pain, any diarrhea or vomiting. Hematuria has not worsened in patient's opinion. She still has Ross catheter in situ. She was reviewed by the urologist yesterday and advised that she would need to the catheter in place for about 2 weeks and will need follow-up with urology. Vitals/I&O's: Vital Signs Temp Pulse Resp BP Pulse Ox 98.0 F 105 H 16 118/72 98 03/10/17 03:30 03/10/17 06:58 03/10/17 03:30 03/10/17 03:30 03/10/17 03:30 Oxygen Delivery Method Room Air Weight: 235 lb 7.259 oz Body Mass Index (BMI) 43.0 Intake and Output for Last 24 Hours 03/08/17 03/09/17 03/10/17 23:59 23:59 23:59 Intake Total 4527 / 4527 726 / 726 Output Total 1500 / 1500 5400 / 5400 2450 / 2450 Balance -1500 / -1500 -873 / -873 -1724 / -1724 General: Alert, Oriented x3, Cooperative, No apparent distress, Well developed, Well nourished HEENT: Atraumatic, EOMI, Normocephalic Oral: Moist Mucosa, No Gingival or Mucosal Lesions/ Ulcerations Neck: Supple, No JVD, No Nodes Lungs: Clear to auscultation, Normal air movement, No rhonchi, No wheeze Cardiovascular: Regular rate, Regular Rhythm, Normal S1, Normal S2, No murmurs Abdomen: Bowel Sounds Present, Soft, Non Tender, Non-Distended, No Hepato-splenomegaly Extremities: No clubbing, No cyanosis, No edema, Capillary Refill Less than 3 Seconds, No Calf Tenderness Skin: No rashes, No breakdown, - - skin is dry Musculoskeletal: No Tenderness to Palpation of Joints or Extremities, No Muscle Wasting Lymphatic: No Cervical, Supraclavicular, or Inguinal Adenopathy Neurological: Cranial nerves II-XII grossly intact, Neuro grossly intact, Motor Exam 5/5 strength throughout Psych/Mental Status: Normal Affect, Appropriate, Alert and oriented to time, place, person, mood and affect Comment: Urine bag still contains blood-tinged urine. Laboratory Results 03/09/17 06:30: Sodium 134 L, Potassium 4.6, Chloride 107, Carbon Dioxide 15.0 L, Anion Gap 12, BUN 61 H, Creatinine 5.69 H, Estim Creat Clear Calc 10.29, Est GFR (MDRD) Af Amer 11 L, Est GFR (MDRD) Non-Af 9 L, BUN/Creatinine Ratio 10.7, Glucose 234 H, Calcium 8.5, Troponin I < 0.02 03/09/17 06:30: Differential Comment 03/09/17 06:30: Total Creatine Kinase 53 03/09/17 11:07: POC Glucose 401 H 03/09/17 13:26: Blood Type A POSITIVE, Antibody Screen NEGATIVE, Crossmatch See Detail 03/09/17 13:26: Hgb 7.4 L, Hct 21.8 L 03/09/17 15:57: POC Glucose 292 H 03/09/17 17:45: Urine Color Red, Urine Clarity Turbid, Urine pH 6.5, Ur Specific [place] 1.010, Urine Protein 500 H, Urine Glucose (UA) 250 H, Urine Ketones Negative, Urine Occult Blood 250 H, Urine Nitrite Negative, Urine Bilirubin Negative, Urine Urobilinogen Normal, Ur Leukocyte Esterase 25 H, Urine RBC > 100 SEEN, Urine WBC 10-25 SEEN, Ur Squamous Epith Cells 0-5 SEEN, Urine Bacteria 2+, Urine Mucus 0 SEEN 03/09/17 21:37: POC Glucose 235 H 03/10/17 06:18: WBC 10.6, RBC 2.93 L, Hgb 7.2 L, Hct 21.2 L, MCV 72.4 L, MCH 24.6 L, MCHC 34.0, RDW 12.9, RDW Differential 34.5 L, Plt Count 251, MPV 8.3, Immature Gran % (Auto) 0.300, Neut % (Auto) 78.8 H, Lymph % (Auto) 10.1 L, [place] % (Auto) 8.6, Eos % (Auto) 2.1, Baso % (Auto) 0.1, Absolute Neuts (auto) 8.4 H, Absolute Lymphs (auto) 1.07, Total Counted Not Reportable, Hypochromasia 1+, Anisocytosis 1+ 03/10/17 06:18: Sodium 137, Potassium 4.5, Chloride 111 H, Carbon Dioxide 14.0 L, Anion Gap 12, BUN 47 H, Creatinine 4.24 H, Estim Creat Clear Calc 13.81, Est GFR (MDRD) Af Amer 15 L, Est GFR (MDRD) Non-Af 12 L, BUN/Creatinine Ratio 11.1, Glucose 225 H, Calcium 8.7 03/10/17 06:41: POC Glucose 223 H Current Medications Dextrose (D50w Syringe) 0 gm IV X1 PRN; Protocol PRN Reason: Hypoglycemia Duloxetine HCl (Cymbalta) 60 mg PO DAILY [facility] Last Admin: 03/09/17 09:14 Dose: 60 mg Famotidine (Pepcid) 20 mg PO BID [facility] Last Admin: 03/09/17 21:42 Dose: 20 mg Glucagon () 1 mg IM .X1 PRN PRN Reason: Hypoglycemia Hydralazine HCl (Apresoline) 5 mg IV Q6H PRN PRN PRN Reason: blood pressure Insulin Aspart (Novolog Flexpen (Bk)) 0 units SC ACHS [facility] PRN Reason: Protocol Last Admin: 03/09/17 21:43 Dose: 2 units Insulin Detemir (Levemir (Bk)) 20 units SC QHS [facility] Last Admin: 03/09/17 21:43 Dose: 20 u Magnesium Hydroxide (Milk Of Magnesia) 30 ml PO DAILY PRN PRN Reason: Constipation Ondansetron HCl (Zofran) 4 mg IV Q6H PRN PRN PRN Reason: NAUSEA/VOMITING Psyllium Hydrophilic Mucilloid (Metamucil) 1 packet PO DAILY PRN PRN PRN Reason: CONSTIPATION Sodium Chloride () 5 - 30 ml IV UD PRN PRN Reason: SALINE FLUSH Assessment/Plan Active and Suspected Problems Acute kidney injury (Acute) Nausea and vomiting (Acute) Coronary artery disease (Acute) 41 year old F with past medical history of type 2 DM, uncontrolled, on insulin, history of CAD status post remote stents, chronic low back pain comes in because of abnormal blood work and being managed for FRANSICO. 1. Acute kidney injury likely due to an obstructive uropathy -Creatinine was 8 and admission is trended down to 4.7 today. -Patient has no complaints today and feels very well. Still having hematuria. -She still remains tachycardic around 105 but vitals otherwise stable. -Getting IV fluids normal saline at 1 50 cc/h. Urine output yesterday was about 4.5 L. -Urology and nephrology on board.. -Per urology recommendations, HPI likely due to bladder distention from poorly controlled diabetes. Urology not very concerned about hematuria and thinks that it will resolve with time. Recommends the patient is discharged home with Ross catheter in place for about 2 weeks and will need to learn self-catheterization to relieve her distended bladder. Will need follow-up with urology on outpatient basis. -Nephrology also recommend continued hydration and monitoring of creatinine. 2. Hematuria likely due to obstructive uropathy versus traumatic catheterization -Still having some hematuria but is clearing up a little by little. -Hemoglobin around 7.3 today. -Type and cross matching done. Has 1 unit of blood on hold but has not required transfusion yet. -Per urology does not need cystoscopy now. -On IV fluids normal saline as documented above. 3. [place] metabolic acidosis, likely due to FRANSICO -Bicarb is 14 today with anion gap still remaining around 12. - may be due to RTA from FRANSICO - nephrology on board; wants to monitor and does not think patient will need bicarb supplementation now. Thanks or resolve with resolution of AKA. 4. Type 2 DM -very poorly controlled. A1C was 15 on admission -admits to not being compliant with her meds due to depression -on insulin Levemir 20 units and insulin sliding scale. -Sugars are still poorly controlled with fasting sugars been in the 200s. -We will adjust insulin as appropriate. -On Zofran as needed for nausea and vomiting. 5. Anemia possibly due to acute blood loss from hematuria -Hemoglobin today is around 7.3 which is remained stable. -Still having hematuria. -As one unit of blood on hold as documented above. -May need iron supplementation upon discharge, though iron panel picture was indicated with anemia of chronic disease and deficiency cannot be ruled out as well.. 6. CAD s/p remote stent placement -stable. Not on aspirin 7. Depression -on cymbalta 8. Chronic low back pain -admitted to chronic ibuprofen use for back pain. Ibuprofen on hold due to FRANSICO -on tramadol for pain 9. DVT prophylaxis -Heparin held due to hematuria and follow hemoglobin. SCDs ordered but did not receive them yesterday. Nurse notified and patient will receive SCDs today - Code Visit Inpatient E&M: [id number] [facility] L3
[2017-03-10] MEDS: Famotidine 20 MG Tablet PO ×2 (10:22→22:07)
[2017-03-10] MEDS: DULoxetine Hcl 60 MG Capsule PO (10:22)
[2017-03-10 11:56] LABS: Bedside Glucose 313 mg/dL (70-110)
--- NOTE | 2017-03-10 13:47 | CM.UR ---
Met with patient and her mother face to face. Introduced myself and explained my role. Denies any needs. The patient lives alone however has a brother and parents will help patient as needed. Archie Power RN, [facility].
[2017-03-10 17:11] LABS: Bedside Glucose 303 mg/dL (70-110)
[2017-03-10 22:05] LABS: Bedside Glucose 243 mg/dL (70-110)
[2017-03-11] VITALS (18 sets, daily range): BP systolic 117–166; BP diastolic 76–119; PULSE 96–112; RESP 12–18; TEMP 36.3–37.1; O2SAT 99–100
[2017-03-11 06:17] LABS: Anion Gap 11 (5-15); BUN 36 mg/dL (7-18); BUN/Creat Ratio 10.2 RATIO (10-20); Calcium,Total 9.2 mg/dL (8.5-10.1); Chloride 112 mmol/L (98-107); Creatinine, Serum 3.54 mg/dL (0.55-1.02); EST Glomerular Filtration Rate 15 mL/min (>60); Est Glom Filt Rate - Afr Amer 18 mL/min (>60); Estimated Creatinine Clearance 16.54 ml/min; Glucose 168 mg/dL (70-110); Potassium 4.4 mmol/L (3.5-5.1); Sodium Level 139 mmol/L (136-145)
[2017-03-11 07:06] LABS: Bedside Glucose 178 mg/dL (70-110)
[2017-03-11 07:12] LABS: Absolute Lymphocyte Count 1.32 X10^3/ul (0.83-4.51); Absolute Neutrophil Count 7.8 X10^3/uL (2.0-7.7); Basophil# 0.02 X10^3/uL; Basophil% 0.2 % (0-1); Eosinophil# 0.29 X10^3/uL; Eosinophils% 2.8 % (0-5); Hematocrit 20.8 % (37-47); Hemoglobin 7.2 g/dl (12.0-15.0); Lymphocyte # 1.32 X10^3/ul (4.0); Lymphocyte % 12.7 % (19-41); Mean Corp Hgb Conc 34.6 g/gl (32-36); Mean Corpuscular Hgb 24.9 pg (27.0-32.0); Mean Platelet Vol. 8.9 fl (6.2-12.0); Monocyte# 0.99 X10^3/uL; Monocyte% 9.5 % (0-10); Neutrophil # 7.76 X10^3/uL (2.7-7.7); Neutrophil % 74.5 % (47-70); Platelet Count 326 K/mm3 (150-450); RBC Distribution Width CV 12.1 % (11.6-14.6); RBC Distribution Width SD 30.8 fl (35.1-43.9); Red Blood Count 2.89 M/mm3 (4.2-5.4); White Blood Count 10.4 K/mm3 (4.4-11.0)
[2017-03-11 07:14] LABS: Differential Indicated SCAN CRITERIA MET; POSITIVE COUNT NO; POSITIVE DIFFERENTIAL NO; POSITIVE MORPHOLOGY YES
[2017-03-11 07:22] LABS: Differential Comment SCANNED; Microcytosis 3+
[2017-03-11] MEDS: DULoxetine Hcl 60 MG Capsule PO (09:13)
[2017-03-11] MEDS: Famotidine 20 MG Tablet PO ×2 (09:13→22:48)
[2017-03-11 11:11] LABS: Bedside Glucose 130 mg/dL (70-110)
--- NOTE | 2017-03-11 13:00 | PN.RENAL_ITS ---
Patient Problems: Active and Suspected Problems Acute kidney injury (Acute) Nausea and vomiting (Acute) Coronary artery disease (Acute) Subjective: Patient is doing okay. No nausea No vomiting She said she is eating better but her appetite is still not good Schmidt cath is still draining bloody urine - Physical Exam General: Alert, Oriented x3 HEENT: Atraumatic Oral: Moist Mucosa Neck: Supple, No JVD Lungs: Clear to auscultation, Normal air movement, No rhonchi, No wheeze, No rales Cardiovascular: Regular rate, Regular Rhythm, Normal S1, Normal S2, No murmurs Abdomen: Bowel Sounds Present, Soft, Non Tender Extremities: No clubbing, No cyanosis, No edema Skin: No rashes Musculoskeletal: No Tenderness to Palpation of Joints or Extremities Lymphatic: No Cervical, Supraclavicular, or Inguinal Adenopathy Neurological: Cranial nerves II-XII grossly intact, Neuro grossly intact Psych/Mental Status: Normal Affect - schmidt cath draning bloody urine Vital Signs Temp Pulse Resp BP Pulse Ox 98.5 F 109 H 16 130/83 H 100 03/11/17 09:11 03/11/17 11:00 03/11/17 09:11 03/11/17 09:11 03/11/17 09:11 Oxygen Delivery Method Room Air Weight: 106.8 kg Body Mass Index (BMI) 43.0 Intake and Output for Last 24 Hours 03/09/17 03/10/17 03/11/17 23:59 23:59 23:59 Intake Total 4527 / 4527 2126 / 2126 360 / 360 Output Total 5400 / 5400 4250 / 4250 2665 / 2665 Balance -873 / -873 -2124 / -2124 -2305 / -2305 Laboratory Tests Past 24 Hrs 03/11/17 03/11/17 05:30 05:30 WBC 10.4 RBC 2.89 L Hgb 7.2 L Hct 20.8 L MCV 72.0 L MCH 24.9 L MCHC 34.6 RDW 12.1 RDW Differential 30.8 L Plt Count 326 MPV 8.9 Immature Gran % (Auto) 0.300 Neut % (Auto) 74.5 H Lymph % (Auto) 12.7 L [place] % (Auto) 9.5 Eos % (Auto) 2.8 Baso % (Auto) 0.2 Absolute Neuts (auto) 7.8 H Absolute Lymphs (auto) 1.32 Total Counted Not Reportable Differential Comment SCANNED Microcytosis 3+ Sodium 139 Potassium 4.4 Chloride 112 H Carbon Dioxide 16.0 L Anion Gap 11 BUN 36 H Creatinine 3.54 H Estim Creat Clear Calc 16.54 Est GFR (MDRD) Af Amer 18 L Est GFR (MDRD) Non-Af 15 L BUN/Creatinine Ratio 10.2 Glucose 168 H Calcium 9.2 POC Glucose 03/11/17 03/11/17 03/10/17 11:08 06:50 21:55 POC Glucose 130 H 178 H 243 H 03/10/17 16:57 POC Glucose 303 H Assessment/Plan Active and Suspected Problems Acute kidney injury (Acute) Nausea and vomiting (Acute) Coronary artery disease (Acute) 1- FRANSICO due due to post renal obstruction from DENNISON Kidney US showed thickened wall bladder with b/l hydronephrosis Cr peaked at 8.0. improving with schmidt cath placement and urine drainage. Cr Cr 8.0>7.3>5.5>> 4.2>3.5 mg/dL Non oliguric.Off IVF Still has hematuria Avoid ACEI UOP is good no polyuria. Dose medications as per the current GFR 2- Metabolic acidosis from FRANSICO. Improving.no need for NaHCO3 replacement. Will monitor 3- Hyponatremia from poor oral intake due to nausea vomiting. improved with IVF. Na is wnl now 4- Hematuria. has schmidt cath. Still has significant hematuria urology service is on board. 5- DENNISON. Most probably from diabetic neuropathy. Has schmidt which is draining the urine. Urology service is following . The plan is to send the patient home with schmidt cath and to follow with the urology clinic in 2 weeks after discharge 6- HTN: BP is well controlled. Not on scheduled BP meds continue hydralazine PRN. avoid ACEI/ARB Thank you for the consult. Please don't hesitate to call my at my cell with any question Radha Britton MD [phone]
[2017-03-11 16:36] LABS: Bedside Glucose 245 mg/dL (70-110)
--- NOTE | 2017-03-11 16:43 | PCM.PN.HOSP ---
Patient Problems: Active and Suspected Problems Acute kidney injury (Acute) Nausea and vomiting (Acute) Coronary artery disease (Acute) Subjective: Patient still has hematuria. Patient had total about 1000 mL urine output yesterday. Hemoglobin is 7.2, same with yesterday. Patient is mildly tachycardic. Vitals/I&O's: Vital Signs Temp Pulse Resp BP Pulse Ox 98.2 F 105 H 16 117/83 H 100 03/11/17 14:37 03/11/17 15:00 03/11/17 14:37 03/11/17 14:37 03/11/17 14:37 Oxygen Delivery Method Room Air Weight: 235 lb 7.259 oz Body Mass Index (BMI) 43.0 Intake and Output for Last 24 Hours 03/09/17 03/10/17 03/11/17 23:59 23:59 23:59 Intake Total 4527 / 4527 2125 / 2125 360 / 360 Output Total 5400 / 5400 4250 / 4250 2665 / 2665 Balance -873 / -873 -2124 / -2124 -2305 / -2305 General: Alert, Oriented x3, Cooperative HEENT: Atraumatic, PERRLA, EOMI, Normocephalic Neck: Supple, No JVD, Negative Carotid Bruits Lungs: Clear to auscultation, No rhonchi, No wheeze, No rales, Diminished Cardiovascular: Regular rate, Regular Rhythm, Normal S1, Normal S2, No murmurs Abdomen: Bowel Sounds Present, Soft, Non Tender, Non-Distended, - - No renal angle tenderness Urine mixed blood in Ross catheter tube. Extremities: No edema, Capillary Refill Less than 3 Seconds, Edema Skin: No rashes, No breakdown Musculoskeletal: No Tenderness to Palpation of Joints or Extremities Neurological: Cranial nerves II-XII grossly intact Psych/Mental Status: Normal Affect, Appropriate Laboratory Results 03/10/17 16:57: POC Glucose 303 H 03/10/17 21:55: POC Glucose 243 H 03/11/17 05:30: WBC 10.4, RBC 2.89 L, Hgb 7.2 L, Hct 20.8 L, MCV 72.0 L, MCH 24.9 L, MCHC 34.6, RDW 12.1, RDW Differential 30.8 L, Plt Count 326, MPV 8.9, Immature Gran % (Auto) 0.300, Neut % (Auto) 74.5 H, Lymph % (Auto) 12.7 L, [place] % (Auto) 9.5, Eos % (Auto) 2.8, Baso % (Auto) 0.2, Absolute Neuts (auto) 7.8 H, Absolute Lymphs (auto) 1.32, Total Counted Not Reportable, Differential Comment SCANNED, Microcytosis 3+ 03/11/17 05:30: Sodium 139, Potassium 4.4, Chloride 112 H, Carbon Dioxide 16.0 L, Anion Gap 11, BUN 36 H, Creatinine 3.54 H, Estim Creat Clear Calc 16.54, Est GFR (MDRD) Af Amer 18 L, Est GFR (MDRD) Non-Af 15 L, BUN/Creatinine Ratio 10.2, Glucose 168 H, Calcium 9.2 03/11/17 06:50: POC Glucose 178 H 03/11/17 11:08: POC Glucose 130 H 03/11/17 16:28: POC Glucose 245 H Current Medications Dextrose (D50w Syringe) 0 gm IV X1 PRN; Protocol PRN Reason: Hypoglycemia Duloxetine HCl (Cymbalta) 60 mg PO DAILY [facility] Last Admin: 03/11/17 09:13 Dose: 60 mg Famotidine (Pepcid) 20 mg PO BID [facility] Last Admin: 03/11/17 09:13 Dose: 20 mg Glucagon () 1 mg IM .X1 PRN PRN Reason: Hypoglycemia Hydralazine HCl (Apresoline) 5 mg IV Q6H PRN PRN PRN Reason: blood pressure Insulin Aspart (Novolog Flexpen (Bk)) 0 units SC ACHS [facility] PRN Reason: Protocol Last Admin: 03/11/17 16:34 Dose: 2 units Insulin Detemir (Levemir (Bk)) 20 units SC QHS [facility] Last Admin: 03/10/17 21:57 Dose: 20 u Magnesium Hydroxide (Milk Of Magnesia) 30 ml PO DAILY PRN PRN Reason: Constipation Ondansetron HCl (Zofran) 4 mg IV Q6H PRN PRN PRN Reason: NAUSEA/VOMITING Psyllium Hydrophilic Mucilloid (Metamucil) 1 packet PO DAILY PRN PRN PRN Reason: CONSTIPATION Sodium Chloride () 5 - 30 ml IV UD PRN PRN Reason: SALINE FLUSH Assessment/Plan Active and Suspected Problems Acute kidney injury (Acute) Nausea and vomiting (Acute) Coronary artery disease (Acute) 41 year old F with past medical history of type 2 DM, uncontrolled, on insulin, history of CAD status post remote stents, chronic low back pain comes in because of abnormal blood work and being managed for FRANSICO. 1. Acute kidney injury most probably from post renal obstruction from bladder outlet obstruction: Creatinine is slowly improving. Urine output about 1000 mL hematuric. Process Mechanic called me that patient probably needs continuous bladder irrigation. Called Dr. Martinez and he suggested intermittent bladder irrigation with almost saline flush. Later I and O's. Kidneys and bladder ultrasound shows thickened bladder wall with trabeculation and bilateral hydronephrosis Seen by urologist on 03/09/2017. It seems diabetes mellitus, poorly told may be reason for bladder distention/atony. - Recommends the patient is discharged home with Ross catheter in place for about 2 weeks and will need to learn self-catheterization to relieve her distended bladder. Will need follow-up with urology on outpatient basis. Nephrology follow-up reviewed. 2. Hematuria likely due to sudden decompression after prolonged bladder distention with outlet obstruction: Should have of intermittent flushing suggested by Dr. Martinez. HB STAYS at 7.2 g percent for last 3 days. Slight tachycardic, heart rate in low 100s. 2 units of PRBC ordered. Did not get any blood transfusion but 1 UNIT was ordered with type and crossmatch -Per urology does not need cystoscopy now. -On IV fluids normal saline as documented above. 3. Nongap metabolic acidosis, likely due to FRANSICO -Anion gap closed.: Resolved 4. Type 2 DM -very poorly controlled. A1C was 15 on admission -on insulin Levemir 20 units and insulin sliding scale. -Titrate insulin dose as per Accu-Cheks. 5. Acute anemia possibly due to acute blood loss from hematuria -As mentioned above Other chronic comorbidities including coronary artery status post remote stent, Depression, chronic low back pain : Stable. On home medication. Aspirin and NSAIDs are on hold because of bleeding. 8. DVT prophylaxis -Heparin held due to hematuria and follow hemoglobin. SCDs -
--- NOTE | 2017-03-11 16:59 | PN_ITS ---
Addendum entered and electronically signed by Bhupinder Peters MD 03/11/17 17:03 : Code Visit Inpatient E&M: [id number] Init Hosp L2 Original Note: Patient Problems: Active and Suspected Problems Acute kidney injury (Acute) Nausea and vomiting (Acute) Coronary artery disease (Acute) Subjective: Patient still has hematuria. Patient had total about 1000 mL urine output yesterday. Hemoglobin is 7.2, same with yesterday. Patient is mildly tachycardic. Vitals/I&O's: Vital Signs Temp Pulse Resp BP Pulse Ox 98.2 F 105 H 16 117/83 H 100 03/11/17 14:37 03/11/17 15:00 03/11/17 14:37 03/11/17 14:37 03/11/17 14:37 Oxygen Delivery Method Room Air Weight: 235 lb 7.259 oz Body Mass Index (BMI) 43.0 Intake and Output for Last 24 Hours 03/09/17 03/10/17 03/11/17 23:59 23:59 23:59 Intake Total 4527 / 4527 6 / 2125 360 / 360 Output Total 5400 / 5400 4250 / 4250 2665 / 2665 Balance -873 / -873 -2124 / -2124 -2305 / -2305 General: Alert, Oriented x3, Cooperative HEENT: Atraumatic, PERRLA, EOMI, Normocephalic Neck: Supple, No JVD, Negative Carotid Bruits Lungs: Clear to auscultation, No rhonchi, No wheeze, No rales, Diminished Cardiovascular: Regular rate, Regular Rhythm, Normal S1, Normal S2, No murmurs Abdomen: Bowel Sounds Present, Soft, Non Tender, Non-Distended, - - No renal angle tenderness Urine mixed blood in Ross catheter tube. Extremities: No edema, Capillary Refill Less than 3 Seconds, Edema Skin: No rashes, No breakdown Musculoskeletal: No Tenderness to Palpation of Joints or Extremities Neurological: Cranial nerves II-XII grossly intact Psych/Mental Status: Normal Affect, Appropriate Laboratory Results 03/10/17 16:57: POC Glucose 303 H 03/10/17 21:55: POC Glucose 243 H 03/11/17 05:30: WBC 10.4, RBC 2.89 L, Hgb 7.2 L, Hct 20.8 L, MCV 72.0 L, MCH 24.9 L, MCHC 34.6, RDW 12.1, RDW Differential 30.8 L, Plt Count 326, MPV 8.9, Immature Gran % (Auto) 0.300, Neut % (Auto) 74.5 H, Lymph % (Auto) 12.7 L, [place] % (Auto) 9.5, Eos % (Auto) 2.8, Baso % (Auto) 0.2, Absolute Neuts (auto) 7.8 H, Absolute Lymphs (auto) 1.32, Total Counted Not Reportable, Differential Comment SCANNED, Microcytosis 3+ 03/11/17 05:30: Sodium 139, Potassium 4.4, Chloride 112 H, Carbon Dioxide 16.0 L , Anion Gap 11, BUN 36 H, Creatinine 3.54 H, Estim Creat Clear Calc 16.54, Est GFR (MDRD) Af Amer 18 L, Est GFR (MDRD) Non-Af 15 L, BUN/Creatinine Ratio 10.2, Glucose 168 H, Calcium 9.2 03/11/17 06:50: POC Glucose 178 H 03/11/17 11:08: POC Glucose 130 H 03/11/17 16:28: POC Glucose 245 H Current Medications Dextrose (D50w Syringe) 0 gm IV X1 PRN; Protocol PRN Reason: Hypoglycemia Duloxetine HCl (Cymbalta) 60 mg PO DAILY [facility] Last Admin: 03/11/17 09:13 Dose: 60 mg Famotidine (Pepcid) 20 mg PO BID [facility] Last Admin: 03/11/17 09:13 Dose: 20 mg Glucagon () 1 mg IM .X1 PRN PRN Reason: Hypoglycemia Hydralazine HCl (Apresoline) 5 mg IV Q6H PRN PRN PRN Reason: blood pressure Insulin Aspart (Novolog Flexpen ([facility])) 0 units SC ACHS [facility] PRN Reason: Protocol Last Admin: 03/11/17 16:34 Dose: 2 units Insulin Detemir (Levemir ([facility])) 20 units SC QHS [facility] Last Admin: 03/10/17 21:57 Dose: 20 u Magnesium Hydroxide (Milk Of Magnesia) 30 ml PO DAILY PRN PRN Reason: Constipation Ondansetron HCl (Zofran) 4 mg IV Q6H PRN PRN PRN Reason: NAUSEA/VOMITING Psyllium Hydrophilic Mucilloid (Metamucil) 1 packet PO DAILY PRN PRN PRN Reason: CONSTIPATION Sodium Chloride () 5 - 30 ml IV UD PRN PRN Reason: SALINE FLUSH Assessment/Plan Active and Suspected Problems Acute kidney injury (Acute) Nausea and vomiting (Acute) Coronary artery disease (Acute) 41 year old F with past medical history of type 2 DM, uncontrolled, on insulin, history of CAD status post remote stents, chronic low back pain comes in because of abnormal blood work and being managed for FRANSICO. 1. Acute kidney injury most probably from post renal obstruction from bladder outlet obstruction: Creatinine is slowly improving. Urine output about 1000 mL hematuric. Supervisor Furnace Room called me that patient probably needs continuous bladder irrigation. Called Dr. Martinez and he suggested intermittent bladder irrigation with almost saline flush. Later I and O's. Kidneys and bladder ultrasound shows thickened bladder wall with trabeculation and bilateral hydronephrosis Seen by urologist on 03/09/2017. It seems diabetes mellitus, poorly told may be reason for bladder distention/atony. - Recommends the patient is discharged home with Ross catheter in place for about 2 weeks and will need to learn self-catheterization to relieve her distended bladder. Will need follow-up with urology on outpatient basis. Nephrology follow-up reviewed. 2. Hematuria likely due to sudden decompression after prolonged bladder distention with outlet obstruction: Should have of intermittent flushing suggested by Dr. Martinez. HB STAYS at 7.2 g percent for last 3 days. Slight tachycardic, heart rate in low 100s. 2 units of PRBC ordered. Did not get any blood transfusion but 1 UNIT was ordered with type and crossmatch -Per urology does not need cystoscopy now. -On IV fluids normal saline as documented above. 3. Nongap metabolic acidosis, likely due to FRANSICO -Anion gap closed.: Resolved 4. Type 2 DM -very poorly controlled. A1C was 15 on admission -on insulin Levemir 20 units and insulin sliding scale. -Titrate insulin dose as per Accu-Cheks. 5. Acute anemia possibly due to acute blood loss from hematuria -As mentioned above Other chronic comorbidities including coronary artery status post remote stent, Depression, chronic low back pain : Stable. On home medication. Aspirin and NSAIDs are on hold because of bleeding. 8. DVT prophylaxis -Heparin held due to hematuria and follow hemoglobin. SCDs -
[2017-03-11 17:50] LABS: Hematocrit 21.2 % (37-47); Hemoglobin 7.2 g/dl (12.0-15.0)
[2017-03-11 22:56] LABS: Bedside Glucose 212 mg/dL (70-110)
[2017-03-12] VITALS (15 sets, daily range): BP systolic 116–163; BP diastolic 71–101; PULSE 92–112; RESP 16–18; TEMP 36.6–37.1; O2SAT 97–100
[2017-03-12] MEDS: 0.9% NaCl Peripheral Flush Adult/Peds IV (01:45)
[2017-03-12 04:12] LABS: Anion Gap 11 (5-15); BUN 31 mg/dL (7-18); BUN/Creat Ratio 9.6 RATIO (10-20); Calcium,Total 8.7 mg/dL (8.5-10.1); Chloride 109 mmol/L (98-107); Creatinine, Serum 3.23 mg/dL (0.55-1.02); EST Glomerular Filtration Rate 17 mL/min (>60); Est Glom Filt Rate - Afr Amer 20 mL/min (>60); Estimated Creatinine Clearance 18.13 ml/min; Glucose 187 mg/dL (70-110); Potassium 4.3 mmol/L (3.5-5.1); Sodium Level 136 mmol/L (136-145)
[2017-03-12 04:19] LABS: Absolute Lymphocyte Count 1.44 X10^3/ul (0.83-4.51); Absolute Neutrophil Count 7.9 X10^3/uL (2.0-7.7); Basophil# 0.02 X10^3/uL; Basophil% 0.2 % (0-1); Eosinophil# 0.24 X10^3/uL; Eosinophils% 2.2 % (0-5); Hematocrit 28.4 % (37-47); Hemoglobin 9.9 g/dl (12.0-15.0); Lymphocyte # 1.44 X10^3/ul (4.0); Lymphocyte % 13.3 % (19-41); Mean Corp Hgb Conc 34.9 g/gl (32-36); Mean Corpuscular Hgb 26.2 pg (27.0-32.0); Mean Corpuscular Volume 75.1 fL (81-99); Mean Platelet Vol. 8.9 fl (6.2-12.0); Monocyte# 1.12 X10^3/uL; Monocyte% 10.4 % (0-10); Neutrophil # 7.93 X10^3/uL (2.7-7.7); Neutrophil % 73.4 % (47-70); Platelet Count 301 K/mm3 (150-450); RBC Distribution Width CV 15.3 % (11.6-14.6); RBC Distribution Width SD 40.6 fl (35.1-43.9); Red Blood Count 3.78 M/mm3 (4.2-5.4); White Blood Count 10.8 K/mm3 (4.4-11.0)
[2017-03-12 04:32] LABS: POSITIVE COUNT NO; POSITIVE DIFFERENTIAL NO; POSITIVE MORPHOLOGY NO
[2017-03-12 06:56] LABS: Bedside Glucose 168 mg/dL (70-110)
[2017-03-12] MEDS: DULoxetine Hcl 60 MG Capsule PO (08:11)
[2017-03-12] MEDS: Famotidine 20 MG Tablet PO ×2 (08:11→21:01)
--- NOTE | 2017-03-12 09:57 | PCM.PN.HOSP ---
Patient Problems: Active and Suspected Problems Acute kidney injury (Acute) Nausea and vomiting (Acute) Coronary artery disease (Acute) Subjective: Patient was seen and examined. Denies any new complaints. Denies any abdominal pain, fever or chills or dizziness or chest pain. Objective: PHYSICAL EXAM: General: Alert, Oriented x3, Cooperative, No apparent distress, Well developed, Well nourished HEENT: Atraumatic, EOMI, Normocephalic Oral: Moist Mucosa, No Gingival or Mucosal Lesions/ Ulcerations Neck: Supple, No JVD, No Nodes Lungs: Clear to auscultation, Normal air movement, No rhonchi, No wheeze Cardiovascular: Regular rate, Regular Rhythm, Normal S1, Normal S2, No murmurs Abdomen: Bowel Sounds Present, Soft, Non Tender, Non-Distended, No Hepato-splenomegaly Extremities: No clubbing, No cyanosis, No edema, Capillary Refill Less than 3 Seconds, No Calf Tenderness Skin: No rashes, No breakdown, - - skin is dry Musculoskeletal: No Tenderness to Palpation of Joints or Extremities, No Muscle Wasting Lymphatic: No Cervical, Supraclavicular, or Inguinal Adenopathy Neurological: Cranial nerves II-XII grossly intact, Neuro grossly intact, Motor Exam 5/5 strength throughout Psych/Mental Status: Normal Affect, Appropriate, Alert and oriented to time, place, person, mood and affect Comment: Urine bag still contains blood-tinged urine. Vitals/I&O's: Vital Signs Temp Pulse Resp BP Pulse Ox 98.5 F 97 16 124/79 H 98 03/12/17 04:45 03/12/17 07:36 03/12/17 04:45 03/12/17 04:45 03/12/17 04:45 Oxygen Delivery Method Room Air Weight: 106.8 kg Body Mass Index (BMI) 43.0 Intake and Output for Last 24 Hours 03/10/17 03/11/17 03/12/17 23:59 23:59 23:59 Intake Total 2125 / 6 504.9 / 504.9 904.4 / 904.4 Output Total 4250 / 4250 3240 / 3240 1510 / 1510 Balance -2124 / -2124 -2735.1 / -2735.1 -605.6 / -605.6 Laboratory Results 03/09/17 13:26: Blood Type A POSITIVE, Antibody Screen NEGATIVE, Crossmatch See Detail 03/09/17 13:26: Crossmatch See Detail 03/11/17 11:08: POC Glucose 130 H 03/11/17 16:28: POC Glucose 245 H 03/11/17 17:36: Hgb 7.2 L, Hct 21.2 L 03/11/17 22:44: POC Glucose 212 H 03/12/17 03:26: WBC 10.8, RBC 3.78 L, Hgb 9.9 L, Hct 28.4 L, MCV 75.1 L, MCH 26.2 L, MCHC 34.9, RDW 15.3 H, RDW Differential 40.6, Plt Count 301, MPV 8.9, Immature Gran % (Auto) 0.500, Neut % (Auto) 73.4 H, Lymph % (Auto) 13.3 L, [place] % (Auto) 10.4 H, Eos % (Auto) 2.2, Baso % (Auto) 0.2, Absolute Neuts (auto) 7.9 H, Absolute Lymphs (auto) 1.44, Total Counted Not Reportable 03/12/17 03:26: Sodium 136, Potassium 4.3, Chloride 109 H, Carbon Dioxide 16.0 L, Anion Gap 11, BUN 31 H, Creatinine 3.23 H, Estim Creat Clear Calc 18.13, Est GFR (MDRD) Af Amer 20 L, Est GFR (MDRD) Non-Af 17 L, BUN/Creatinine Ratio 9.6 L, Glucose 187 H, Calcium 8.7 03/12/17 06:50: POC Glucose 168 H Current Medications Dextrose (D50w Syringe) 0 gm IV X1 PRN; Protocol PRN Reason: Hypoglycemia Duloxetine HCl (Cymbalta) 60 mg PO DAILY [facility] Last Admin: 03/12/17 08:11 Dose: 60 mg Famotidine (Pepcid) 20 mg PO BID [facility] Last Admin: 03/12/17 08:11 Dose: 20 mg Glucagon () 1 mg IM .X1 PRN PRN Reason: Hypoglycemia Hydralazine HCl (Apresoline) 5 mg IV Q6H PRN PRN PRN Reason: blood pressure Insulin Aspart (Novolog Flexpen ([facility])) 0 units SC ACHS [facility] PRN Reason: Protocol Last Admin: 03/12/17 08:11 Dose: 1 units Insulin Detemir (Levemir ([facility])) 20 units SC QHS [facility] Last Admin: 03/11/17 22:45 Dose: 20 u Magnesium Hydroxide (Milk Of Magnesia) 30 ml PO DAILY PRN PRN Reason: Constipation Ondansetron HCl (Zofran) 4 mg IV Q6H PRN PRN PRN Reason: NAUSEA/VOMITING Psyllium Hydrophilic Mucilloid (Metamucil) 1 packet PO DAILY PRN PRN PRN Reason: CONSTIPATION Sodium Chloride () 5 - 30 ml IV UD PRN PRN Reason: SALINE FLUSH Last Admin: 03/12/17 01:45 Dose: 10 ml Assessment/Plan Active and Suspected Problems Acute kidney injury (Acute) Nausea and vomiting (Acute) Coronary artery disease (Acute) 41 year old F with past medical history of type 2 DM, uncontrolled, on insulin, history of CAD status post remote stents, chronic low back pain admitted with FRANSICO. 1. Acute kidney injury secondary to post renal obstruction from bladder outlet obstruction, s/p schmidt catheterisation, with improvement in creatinine, will continue to monitor. 2. Post bladder obstruction, s/p schmidt catheterisation, seen by urologist, recommends discharged home with Schmidt catheter in place for about 2 weeks, will need to learn self-catheterization to relieve her distended bladder. Will need follow-up with urology on outpatient basis. 3. Hematuria likely due to sudden decompression after prolonged bladder distention with outlet obstruction, will get intermittent flushing suggested by Dr. Martinez. HB STAYS at 7.2 g percent for last 3 days. Slight tachycardic, heart rate in low 100s. 2 units of PRBC ordered. Did not get any blood transfusion but 1 UNIT was ordered with type and crossmatch -Per urology does not need cystoscopy now. -On IV fluids normal saline as documented above. 4. [place] metabolic acidosis, likely due to FRANSICO, anion gap closed, resolved 5. Type 2 DM, HbA1c 15, on Levemir and ISS, continue to monitor 6. Acute anemia possibly due to acute blood loss from hematuria 7. Coronary artery status post remote stent, 8. Depression, 9. Chronic low back pain : Stable. On home medication. Aspirin and NSAIDs are on hold because of bleeding. 10. DVT prophylaxis with SCDs Code Visit Inpatient E&M: 66697 Subs Hosp L2
[2017-03-12 11:51] LABS: Bedside Glucose 218 mg/dL (70-110)
[2017-03-12 17:16] LABS: Bedside Glucose 199 mg/dL (70-110)
[2017-03-12 21:16] LABS: Bedside Glucose 248 mg/dL (70-110)
[2017-03-13 02:54] VITALS: BP 94/62; PULSE 104; RESP 16; TEMP 36.9; O2SAT 100
[2017-03-13 03:03] VITALS: PULSE 98
[2017-03-13 05:57] LABS: Absolute Lymphocyte Count 1.39 X10^3/ul (0.83-4.51); Absolute Neutrophil Count 8.2 X10^3/uL (2.0-7.7); Basophil# 0.03 X10^3/uL; Basophil% 0.3 % (0-1); Eosinophil# 0.25 X10^3/uL; Eosinophils% 2.2 % (0-5); Hematocrit 27.9 % (37-47); Hemoglobin 9.9 g/dl (12.0-15.0); Lymphocyte # 1.39 X10^3/ul (4.0); Lymphocyte % 12.5 % (19-41); Mean Corp Hgb Conc 35.5 g/gl (32-36); Mean Corpuscular Hgb 26.6 pg (27.0-32.0); Mean Platelet Vol. 8.8 fl (6.2-12.0); Monocyte# 1.22 X10^3/uL; Monocyte% 10.9 % (0-10); Neutrophil # 8.22 X10^3/uL (2.7-7.7); Neutrophil % 73.7 % (47-70); Platelet Count 311 K/mm3 (150-450); RBC Distribution Width CV 14.8 % (11.6-14.6); RBC Distribution Width SD 39.4 fl (35.1-43.9); Red Blood Count 3.72 M/mm3 (4.2-5.4); White Blood Count 11.2 K/mm3 (4.4-11.0)
[2017-03-13 06:01] LABS: POSITIVE COUNT NO; POSITIVE DIFFERENTIAL NO; POSITIVE MORPHOLOGY NO
[2017-03-13 06:21] LABS: Anion Gap 10 (5-15); BUN 27 mg/dL (7-18); BUN/Creat Ratio 9.4 RATIO (10-20); Calcium,Total 8.8 mg/dL (8.5-10.1); Chloride 108 mmol/L (98-107); Creatinine, Serum 2.88 mg/dL (0.55-1.02); EST Glomerular Filtration Rate 19 mL/min (>60); Est Glom Filt Rate - Afr Amer 23 mL/min (>60); Estimated Creatinine Clearance 20.33 ml/min; Glucose 167 mg/dL (70-110); Potassium 4.3 mmol/L (3.5-5.1); Sodium Level 135 mmol/L (136-145)
[2017-03-13 07:00] VITALS: PULSE 103
[2017-03-13 07:10] LABS: Bedside Glucose 156 mg/dL (70-110)
[2017-03-13 08:54] VITALS: BP 127/83; PULSE 99; RESP 12; TEMP 36.8; O2SAT 100
[2017-03-13] MEDS: DULoxetine Hcl 60 MG Capsule PO (09:07)
[2017-03-13] MEDS: Famotidine 20 MG Tablet PO (09:07)
--- NOTE | 2017-03-13 10:34 | PCM.DC ---
- Discharge Diagnoses Current Active Problems: Current Active and Chronic Problems Acute kidney injury (Acute) Type II diabetes mellitus (Chronic) Nausea and vomiting (Acute) Coronary artery disease (Acute) Chronic low back pain (Chronic) Reason(s) for Visit for Discharge Instructions: Abormal labs You will use the following diet at home:: Calorie/Carbohydrate Controlled (specify 1200, 1400, etc), Cardiac Your food should be the consistency of: Regular Your liquids should be the consistency of: Regular/Thin Discharge Activity: Return to Normal Activity Additional Instructions: Ross catheter and leg bag, until you see the urologist in the outpatient. Would need to flush her Ross catheter every 2 hours with 60 mL of sterile water. Allergies/Adverse Reactions: Allergies No Known Allergies Allergy (Verified 03/08/17 11:45) Medications to take at Discharge Duloxetine Hcl [Cymbalta] 60 mg PO DAILY 03/08/17 Glimepiride [Amaryl] 2 mg PO DAILY 30 Days #30 tab 03/13/17 Insulin Glargine,Hum.rec.anlog [Lantus] 22 unit SQ QHS #0 03/13/17 The following prescriptions were given: Glimepiride [Amaryl] 2 mg PO DAILY 30 Days #30 tab Primary Care Physician: Jessica Ayala, DANIEL-C [Primary Care Provider] - Please follow up with your Primary Care Physician in: within 2 weeks Please Follow Up With: Charan Martinez MD When: within 2 weeks Please Follow Up With: Radha Britton MD When: within 2 weeks When: With your acid strength inspector, Dr. Jessica Ayala 1 week with a log of blood sugar Proposed Discharge Date: 03/13/17
--- NOTE | 2017-03-13 10:37 | DCINST_ITS ---
- Discharge Diagnoses Current Active Problems: Current Active and Chronic Problems Acute kidney injury (Acute) Type II diabetes mellitus (Chronic) Nausea and vomiting (Acute) Coronary artery disease (Acute) Chronic low back pain (Chronic) Reason(s) for Visit for Discharge Instructions: Abormal labs You will use the following diet at home:: Calorie/Carbohydrate Controlled ( specify 1200, 1400, etc), Cardiac Your food should be the consistency of: Regular Your liquids should be the consistency of: Regular/Thin Discharge Activity: Return to Normal Activity Additional Instructions: Ross catheter and leg bag, until you see the urologist in the outpatient. Would need to flush her Ross catheter every 2 hours with 60 mL of sterile water. Allergies/Adverse Reactions: Allergies No Known Allergies Allergy (Verified 03/08/17 11:45) Medications to take at Discharge Duloxetine Hcl [Cymbalta] 60 mg PO DAILY 03/08/17 Glimepiride [Amaryl] 2 mg PO DAILY 30 Days #30 tab 03/13/17 Insulin Glargine,Hum.rec.anlog [Lantus] 22 unit SQ QHS #0 03/13/17 The following prescriptions were given: Glimepiride [Amaryl] 2 mg PO DAILY 30 Days #30 tab Primary Care Physician: Jessica Ayala, DANIEL-C [Primary Care Provider] - Please follow up with your Primary Care Physician in: within 2 weeks Please Follow Up With: Charan Martinez MD When: within 2 weeks Please Follow Up With: Radha Britton MD When: within 2 weeks When: With your hospice patient care secretary, Dr. Jessica Ayala 1 week with a log of blood sugar Proposed Discharge Date: 03/13/17
--- NOTE | 2017-03-13 10:38 | PCM.DC.SUM ---
Discharge Date and Diagnosis Date of Admission: 03/08/17 Date of Discharge: 03/13/17 - Primary Discharge Diagnosis Active and Suspected Problems Acute kidney injury (Acute) Nausea and vomiting (Acute) Coronary artery disease (Acute) - Secondary Discharge Diagnosis Chronic Problems Type II diabetes mellitus (Chronic) Chronic low back pain (Chronic) Hospital Course and Treatment Imaging Results: Clinical Impression(s) from Imaging Studies Abdomen/Pelvis CT 03/08/17 16:01 IMPRESSION: Markedly distended bladder with a thickened wall. Moderate bilateral hydronephrosis and hydroureter. Question bladder outlet obstruction. Electronically Signed: Galdino Schulte MD at 17:02 EST , Service support , Renal Ultrasound 03/08/17 18:02 IMPRESSION: Continued hydronephrosis of both kidneys status post Schmidt catheter. Abnormal bladder with a thickened wall and intraluminal echogenic material or mass. Cystoscopy recommended. Electronically Signed: Galdino Schulte MD at 21:31 EST , Service support , None Operations: None Procedures: None Summary of Care Provided: 41 year old F with past medical history of type 2 DM, uncontrolled, on insulin, history of CAD status post remote stents, chronic low back pain admitted with FRANSICO. Admitting CT of the abdomen and pelvis showed huge bladder with bilateral hydronephrosis, reasonable bladder outlet obstruction 1. Acute kidney injury secondary to post renal obstruction from bladder outlet obstruction, s/p schmidt catheterisation, with improvement in creatinine, ordered by safety assistant and urologist, will follow them in the outpatient, would go home with Schmidt catheter and leg bag. 2. Post bladder obstruction, s/p schmidt catheterisation, seen by urologist, recommends discharged home with Schmidt catheter in place for about 2 weeks, will need to learn self-catheterization to relieve her distended bladder. Will need follow-up with urology on outpatient basis. 3. Hematuria likely due to sudden decompression after prolonged bladder distention with outlet obstruction, will get intermittent flushing suggested by Dr. Martinez. 4. Acute Blood loss anemia from hematuria, status post 1 unit packed RBC, stable 5. Nongap metabolic acidosis, likely due to FRANSICO, anion gap closed, resolved 6. Type 2 DM, HbA1c 15, on Levemir and ISS, family held 7. Coronary artery status post remote stent, 8. Depression, 9. Chronic low back pain, stable. on Aspirin and NSAIDs are on hold because of bleeding. Discharge Diet: Low fat/ Low Cholesterol, 2000 Calorie Control Diet, 2000 mg Sodium Diet Discharge Activity: Return to Normal Activity Home Medications: Medications to take at Discharge Duloxetine Hcl [Cymbalta] 60 mg PO DAILY 03/08/17 Glimepiride [Amaryl] 2 mg PO DAILY 30 Days #30 tab 03/13/17 Insulin Glargine,Hum.rec.anlog [Lantus] 22 unit SQ QHS #0 03/13/17 Following Prescrptions Were Given to Patient: Glimepiride [Amaryl] 2 mg PO DAILY 30 Days #30 tab Primary Care Physician: Jessica Ayala, DANIEL-C [Primary Care Provider] - Please follow up with your Primary Care Physician in: within 2 weeks Please Follow Up With: Charan Martinez MD When: within 2 weeks Please Follow Up With: Radha Britton MD When: within 2 weeks When: With your linecasting machine keyboard operator, Dr. Jessica Ayala 1 week with a log of blood sugar Disposition: Home Minutes spent on discharge:: 25 Patient Condition:: Stable Meaningful Use Info Meaningful Use Diagnoses (Choose all that apply): None applicable Code Visit Inpatient E&M: 92794 Disch Hosp
[2017-03-13 11:16] LABS: Bedside Glucose 256 mg/dL (70-110)
== END 2017-03-13 13:07 | disposition home or self-care (01) | DRG 463 ==
LOC: ED 15:02 → PCU 17:09
PROVIDERS: Internal Medicine; Student in an Organized Health Care Education/Training Program; Admitting Provider Internal Medicine; Emergency Provider Emergency Medicine; Family Provider Nurse Practitioner Family; PCP Nurse Practitioner Family; Visit Provider Internal Medicine
DX: N30.00 Acute cystitis without hematuria (principal); N13.30 Unspecified hydronephrosis; N17.9 Acute kidney failure, unspecified; E87.2 Acidosis; D62 Acute posthemorrhagic anemia; E11.65 Type 2 diabetes mellitus with hyperglycemia; E87.1 Hypo-osmolality and hyponatremia; N32.0 Bladder-neck obstruction; R31.0 Gross hematuria; Z68.41 Body mass index [BMI] 40.0-44.9, adult; I25.10 Atherosclerotic heart disease of native coronary artery without angina pectoris; M54.5 Low back pain; G89.29 Other chronic pain; Z95.5 Presence of coronary angioplasty implant and graft; F32.9 Major depressive disorder, single episode, unspecified; Z79.4 Long term (current) use of insulin; E66.9 Obesity, unspecified
CPT/HCPCS: 36415; 51702; 74176; 76770; 80048; 81001; 82550; 82570; 82728; 82962; 83036; 83540; 83550; 84300; 84484; 85014; 85018; 85025; 85027; 86850; 86900; 86920; 86922; 87086; 87088; 93005; 93306; 99285; J7030; J7040; P9016; A4216

== ENCOUNTER 2017-03-19 22:27 | Inpatient (IN) | payer MEDICAID, SELFPAY ==
[2017-03-19 22:30] VITALS: BP 129/85; PULSE 128; RESP 18; TEMP 36.4; O2SAT 100; BMI 42.5
--- NOTE | 2017-03-19 22:48 | CT_ITS ---
STUDY: CT ABDOMEN AND PELVIS WITHOUT CONTRAST REASON FOR EXAM: Female, 41 years old. Nausea and vomiting and upper abdominal pain RADIATION DOSAGE (If Supplied By Facility): CTDIvol = ( 19.02 ) mGy, DLP = ( 964.82 ) mGycm TECHNIQUE: Transaxial images were obtained from the dome of the diaphragm to the symphysis pubis without oral contrast, and without intravenous contrast. Sagittal and coronal images were reconstructed. Individualized dose optimization techniques were used for this CT. COMPARISON: 03/08/2017 FINDINGS: The visualized lung bases are unremarkable. The visualized portions of the heart are within normal limits. Normal liver. Normal gallbladder and extrahepatic biliary system. Normal spleen. Normal pancreas. Normal bilateral adrenal glands. Moderate right-sided hydroureter nephrosis, unchanged from prior imaging. No obstructing calculus. Moderate left-sided hydroureter nephrosis which is unchanged. There is a calcifications in the left lower renal pelvis, unchanged. There is a 6 mm calculus at the left ureterovesicular junction is migrated from the distal left ureter compared to prior imaging. No focal lesions within the kidneys. Normal visualized stomach. Normal small intestine. Normal colon. The appendix is visualized and appears normal. Normal abdominal aorta. Normal inferior vena cava. Normal retroperitoneum. There is marked fluid distention of the urinary bladder with mild concentric bladder wall thickening, unchanged. Normal abdominal wall. Normal osseous structures. CT/Abdomen/Pelvis without Cont IMPRESSION: 1. Moderate bilateral hydroureteronephrosis which is unchanged, with associated distal migration of a 6-year-old calculus which is now seen at the left ureterovesicular junction. 2. Moderate fluid distention of the urinary bladder suggesting urinary outlet obstruction. 3. Nonobstructing 7 mm calculus in the left lower renal pelvis which is unchanged. Electronically Signed: Faustino Ramirez MD at 0:15 EST Tel , Service support ,
--- NOTE | 2017-03-19 22:48 | EKG12_ITS ---
Test Reason : NAUSEA Blood Pressure : / mmHG Vent. Rate : 120 BPM Atrial Rate : 120 BPM P-R Int : 132 ms QRS Dur : 084 ms QT Int : 304 ms P-R-T Axes : 044 039 065 degrees QTc Int : 429 ms Sinus tachycardia Septal infarct , age undetermined Abnormal ECG Confirmed by JUAN JOSE BRADSHAW ([id number]), manager editorial JACOBO GILLILAND ([id number]) on 03/22/2017 7:33:28 AM Referred By: SWEETIE Confirmed By:JUAN JOSE BRADSHAW
--- NOTE | 2017-03-19 23:02 | ED.VISSUMM ---
- ER Visit Summary Date of Service: 03/19/17 Chief Complaint: Abdominal pain History of Present Illness: The patient is a 41 F who sees Jessica Ayala, Dr. Han, Dr. Martinez, and Dr. Blandon. She reports that she has an aching upper abdominal pain that began this morning. Is 10 out of 10 at worst and 9 out of 10 currently. Is worsened by vomiting and relieved by remaining still. States that she is vomited 9-10 times. No blood or emesis. Her last problem was yesterday. She has had no melena or hematochezia. No dysuria, frequency, or hematuria. Her last echo shot was approximately 2-1/2 months ago. Patient was admitted to the hospital earlier this month and was found to have bladder outlet obstruction likely due to diabetic neuropathy and was discharged with a Ross in place. This was removed 3 days ago by the patient after discussion with Dr. Mixon on the phone. She reports that she feels as though she is emptying her bladder well. Patient reports that she has not had this previously. She denies any history of fatty food intolerance. Physical Examination: Vitals: Stable. Afebrile. General: Well-nourished and well-developed. Head: Normocephalic atraumatic. Neck: Supple, no lymphadenopathy. No JVD. Nontender. Cardiovascular: Tachycardic regular rhythm. No murmurs. Respiratory: No respiratory distress. Clear to auscultation bilaterally. Abdominal: Soft, mild epigastric tenderness to palpation, nondistended, normal bowel sounds. No guarding, rebound, or peritoneal signs. I do not appreciate a distended bladder. Back: Nontender. Extremities: Nontender, no edema. Skin: Normal color, no rash. Neurologic: Alert and oriented ?3. Cranial nerves II through XII are intact. Normal strength and sensation. Psych: Normal affect. Test Results: EKG is sinus tach at 120 with artifact and no ischemic changes. CBC is remarkable for a white count of 21.9 with 87 segmented neutrophils and 4 lymphocytes. H&H is 10.0 and 27.9. Chem-7 is marked for sodium 135, calcium 8.1, chloride 109, CO2 of 10, anion gap of 16, glucose of 363, BUN of 42, creatinine 4.24. LFTs are marked for an AST of 10 and albumin of 2.5. Lipase is normal. UA has greater than 100 white blood cells and 2+ bacteria. Troponin is 0.1. test is negative. She has small serum ketones. Venous blood gas shows a pH of 7.31. CT flank shows moderate bilateral hydroureteronephrosis that is unchanged. 6 mm left UVJ calculus. Moderate fluid distention of bladder suggesting outlet obstruction. Nonobstructive calculus 7 mm left lower renal pelvis that is unchanged. Chest x-ray shows a right IJ in place without pneumothorax. Lactic acid is 1.2. Emergency Department Course and Treatment: Had an IV placed. She is given a dose of morphine and Zofran IV. She was given 2 L of normal saline IV. She was given cefepime IV and blood cultures and urine cultures were obtained. The patient has very difficult IV access. We were only be able to obtain a 20-gauge IV in her left antecubital fossa. Couple attempts were made at a second IV without success. Multiple attempts were made at drawing blood work without success. After a prolonged discussion with the patient she consented to having an IJ placed. This was placed without difficulty. Patient's creatinine was 7.38 when she was admitted March 08. A decreased to 2.88 upon her discharge. It is increased back to 4.24. I discussed her that she still has bladder outlet obstruction and that she needs to have a Ross catheter placed to help with her kidney function. She has refused to have this placed. The patient has small serum ketones. However, I feel that these are due to dehydration and that she is not in DKA. I suspect her low bicarb is actually a result of her renal failure. She was not started on an insulin drip. Treatment Plan: Patient was discussed with Dr. Martinez who again reiterates that the patient needs to have Ross catheter placed. Patient continues to refuse. She was discussed with Dr. Murray who is been in the emergency department seen her. He was also unable to get her to agree to a Ross catheter. She will be admitted to the hospital for further evaluation and treatment. Disposition: Admitted in serious condition. Impression: 1. Pyelonephritis. 2. Left ureteral stone. 3. Acute on chronic renal failure. 4. Bladder outlet obstruction. 5. Hyperglycemia. 6. Type 2 diabetes mellitus. 7. Right IJ central line by ED physician. 8. Critical care time 60 minutes. Procedure: The patient was prepped and draped in the usual sterile fashion. I wore a cap, gown, and mask. The right IJ was accessed under direct visualization with the site right. The vessel was accessed on the first attempt. The central line was then placed with Seldinger technique. Normal blood return and flush in all 3 ports. The patient tolerated it well. Postprocedure x-ray shows no pneumothorax. This note was generated with [employer] dictation software. It may contain incorrect words, spelling, and punctuation that were not noted in review of the chart prior to signing ED Disposition - Plan for ED Patient: Chief Complaint: Nausea/Vomiting Referrals: Jessica Ayala NP-C [Primary Care Provider] -
[2017-03-19] MEDS: 0.9% Normal Saline 1,000 ML 1000 ML IV (23:15)
[2017-03-19] MEDS: Ondansetron 4 MG/2 ML Vial IV (23:16)
[2017-03-19 23:26] LABS: Absolute Lymphocyte Count 0.81 X10^3/ul (0.83-4.51); Basophil# 0.02 X10^3/uL; Basophil% 0.1 % (0-1); Eosinophil# 0.04 X10^3/uL; Eosinophils% 0.2 % (0-5); Hematocrit 27.9 % (37-47); Lymphocyte # 0.81 X10^3/ul (4.0); Lymphocyte % 3.7 % (19-41); Mean Corp Hgb Conc 35.8 g/gl (32-36); Mean Corpuscular Hgb 26.7 pg (27.0-32.0); Mean Corpuscular Volume 74.4 fL (81-99); Mean Platelet Vol. 8.8 fl (6.2-12.0); Monocyte# 1.94 X10^3/uL; Monocyte% 8.9 % (0-10); Neutrophil # 19.01 X10^3/uL (2.7-7.7); Neutrophil % 86.6 % (47-70); Platelet Count 351 K/mm3 (150-450); RBC Distribution Width CV 14.5 % (11.6-14.6); Red Blood Count 3.75 M/mm3 (4.2-5.4); White Blood Count 21.9 K/mm3 (4.4-11.0)
[2017-03-19 23:37] LABS: Differential Indicated SCAN CRITERIA MET; POSITIVE COUNT NO; POSITIVE DIFFERENTIAL YES; POSITIVE MORPHOLOGY YES
[2017-03-19 23:58] LABS: Differential Comment SCAN; Hypochromasia RARE
[2017-03-20] VITALS (7 sets, daily range): BP systolic 105–150; BP diastolic 66–108; PULSE 108–121; RESP 10–30; TEMP 36.3–37.1; O2SAT 96–100; BMI 42.2
[2017-03-20 00:09] LABS: Pregnancy, Serum, hCG Quali. NEGATIVE Negative (0-9 Nonpreg)
[2017-03-20 00:35] LABS: Mucous, Urine 0 SEEN /hpf (<or=2+); Red Blood Cells-Urine 0 SEEN /hpf (0-5); Squamous Epithelial Cells - UA 0 SEEN /hpf (5-10)
[2017-03-20 00:46] LABS: Color, Urine Yellow (Yellow); Glucose, Dipstick 250 mg/dl (Normal); Ketone-Dipstick 5 mg/dl (Negative); Leukocyte Esterase-Dipstick 500 /ul (Negative); Nitrite-Dipstick Negative (Negative); Occult Blood-Urine 150 /ul (Negative); Protein-Dipstick 100 mg/dl (Negative); Specific Gravity, Urine 1.015 (1.002-1.030); Urine Bilirubin Dipstick Negative (Negative); Urine Clarity Turbid (Clear); Urine Urobilinogen Normal (Normal)
[2017-03-20 01:00] LABS: Bacteria 2+ /hpf (None Seen); Yeast-Urine 2+ /hpf (None Seen)
[2017-03-20 01:01] LABS: White Blood Cells >100 SEEN /hpf (0-5)
[2017-03-20 01:04] LABS: AST(SGOT) 10 U/L (15-37); Alanine Aminotransfer ALT/SGPT 14 U/L (12-78); Albumin, Serum 2.5 g/dL (3.4-5.0); Alkaline Phosphatase 94 U/L (45-117); Anion Gap 16 (5-15); BUN 42 mg/dL (7-18); BUN/Creat Ratio 9.9 RATIO (10-20); Bilirubin, Direct 0.15 mg/dL (0.00-0.30); Calcium,Total 8.1 mg/dL (8.5-10.1); Chloride 109 mmol/L (98-107); Creatinine, Serum 4.24 mg/dL (0.55-1.02); EST Glomerular Filtration Rate 12 mL/min (>60); Est Glom Filt Rate - Afr Amer 15 mL/min (>60); Estimated Creatinine Clearance 13.81 ml/min; Globulin 4.2 g/dL (2.2-4.2); Glucose 363 mg/dL (70-110); Lipase 57 U/L (73-393); Protein, Total 6.7 g/dL (6.4-8.2); Sodium Level 135 mmol/L (136-145)
--- NOTE | 2017-03-20 02:26 | RAD_ITS ---
STUDY: X-RAY CHEST REASON FOR EXAM: Female, 41 years old. Status post central line placement TECHNIQUE: Single AP portable view of the chest. COMPARISON: 05/21/2014 FINDINGS: Interval placement of a right internal jugular central venous catheter with the tip projecting over the mid superior vena cava. No confluent airspace infiltrate. There is no demonstrated pleural abnormality. Normal size heart. Normal mediastinum and anita. Normal visualized pulmonary arteries. Normal visualized aortic arch and descending thoracic aorta. Normal visualized thoracic spine. Normal visualized ribs, clavicles, and shoulders. There is no demonstrated abnormality of the visualized soft tissue structures of the upper abdomen. RAD/CXR for Line Placement IMPRESSION: 1. Appropriate positioning of central venous line. 2. No evidence of acute cardiopulmonary disease. Electronically Signed: Faustino Ramirez MD at 4:04 EST Tel , Service support ,
[2017-03-20] MEDS: 0.9% Normal Saline 1,000 ML 999 ML IV (03:09)
[2017-03-20 03:31] LABS: Blood Gas Specimen Type VEN; Time Given 320; VBG BASE EXCESS -16 mmol/L (-1.0-3.5); VBG Bicarbonate 11 mmol/L (22-26); VBG Oxygen Content 11 mmol/L (23-33); VBG PO2 39 mmHg (25-40); VBG SO2 70 % (50-70); VBG pCO2 21.4 mmHg (41-51); VBG pH 7.31 (7.32-7.42)
--- NOTE | 2017-03-20 03:32 | PCM.HP.STD ---
Problem List (1) Sepsis Status: Acute (2) UTI (urinary tract infection) Status: Acute (3) FRANSICO (acute kidney injury) Status: Acute (4) Hydroureter Status: Chronic (5) Hydronephrosis Status: Chronic (6) Bladder outlet obstruction Status: Chronic (7) Type II diabetes mellitus Status: Chronic Qualifiers: (8) Coronary artery disease Status: Acute (9) Chronic low back pain Status: Chronic History of Present Illness Date of Admission: 03/20/17 Chief Complaint: Nausea and vomiting The patient is a 41 year old F presented to the hospital on March 08 with acute kidney injury which was secondary to post renal obstruction from bladder outlet obstruction. Patient had a catheter placed and had improvement of her kidney function. Patient was to follow-up with Dr. Martinez, but her insurance would not allow her to see him so the patient contacted Dr. Walker who apparently told her to take the catheter out which and to self catheterize. Patient did take the catheter out but did not self catheterize and. Patient presents with nausea and vomiting. Patient is found to have a worsening of her kidney function, having gone from 2.88 on March 13, to now 4.24. Patient had a CAT scan is continuing to show the bladder outlet obstruction as well as a chronic left ureteral stone that has progressed through the ureter. Patient was also found to have a urinary tract infection and was ordered cefepime by the emergency room physician. The emergency room physician spoke with Dr. Martinez, and advise catheter be replaced. The patient and her mother are declining it thus far. Patient is being admitted for acute kidney injury plus sepsis and urinary tract infection. [] Past Medical History Past Medical History (Chronic Problems): Chronic Problems Type II diabetes mellitus (Chronic) Chronic low back pain (Chronic) Hydroureter (Chronic) Hydronephrosis (Chronic) Bladder outlet obstruction (Chronic) Allergies No Known Allergies Allergy (Verified 03/19/17 22:29) Home Medications: Ambulatory Orders Medication Instructions Recorded Duloxetine Hcl [Cymbalta] 60 mg PO DAILY 03/08/17 Glimepiride [Amaryl] 2 mg PO DAILY 30 Days #30 tab 03/13/17 Insulin Glargine,Hum.rec.anlog 22 unit SQ QHS #0 03/13/17 [Lantus] Surgical History: no surgical history Smoking Status: Never smoker - *Family History Maternal History Items: Unknown - Vision is adopted Review of Systems Constitutional: Reports: Anorexia, Fever, Night Sweats Eyes: Reports: Blurred vision, Double vision HEENT: Denies: Head Aches, Sinus Congestion, Sinus Drainage Cardiovascular: Denies: Chest Pain, Palpitations Respiratory: Denies: Cough Gastrointestinal: Reports: Abdominal Pain, Nausea, Vomiting. Denies: Constipation Genitourinary: Reports: - - Patient stated that she had hematuria after the cath catheter was placed last admission. Denies: Dysuria Gynecological: Reports: - - Last menstrual period was 3 months ago. Patient is depo injections Musculoskeletal: Denies: Joint Pain, Joint Tenderness Skin: Denies: Rash, Wounds Neurological: Denies: Numbness, Tingling, Focal weakness Psychiatric: Denies: Anxiety, Depression Endocrine: Denies: Change in Body Habitus Hematologic/ Lymphatic: Denies: Easy Bruising, Easy Bleeding VTE Information - Inpt Only VTE Present on Admission: No VTE Pharm Prophylaxis ordered?: Yes Patient Problems: Active and Suspected Problems Sepsis (Acute) UTI (urinary tract infection) (Acute) FRANSICO (acute kidney injury) (Acute) - Physical Exam General: Alert, Cooperative HEENT: Atraumatic, Normocephalic Oral: Moist Mucosa, No Gingival or Mucosal Lesions/ Ulcerations Neck: No Nodes, Thyroid Normal Size and Texture Lungs: Clear to auscultation, Normal air movement, No rhonchi, No wheeze Cardiovascular: Regular rate, Regular Rhythm, Normal S1, Normal S2, No murmurs Abdomen: Soft, Non Tender, Non-Distended, Hypoactive Bowel Sounds, Obese Extremities: No edema, No Calf Tenderness Skin: - - Dry skin on elbows but also on her legs. Musculoskeletal: No Tenderness to Palpation of Joints or Extremities, No Muscle Wasting Psych/Mental Status: Appropriate, Flat Affect Vital Signs Temp Pulse Resp BP Pulse Ox 36.4 C L 115 H 17 118/80 99 03/19/17 22:30 03/20/17 03:28 03/20/17 03:28 03/20/17 03:28 03/20/17 03:28 Oxygen Delivery Method Room Air Weight: 105.4 kg Body Mass Index (BMI) 42.5 Laboratory Tests Past 24 Hrs 03/19/17 03/19/17 03/19/17 23:20 23:20 23:20 WBC 21.9 H RBC 3.75 L Hgb 10.0 L Hct 27.9 L MCV 74.4 L MCH 26.7 L MCHC 35.8 RDW 14.5 RDW Differential 38.0 Plt Count 351 MPV 8.8 Immature Gran % (Auto) 0.500 Neut % (Auto) 86.6 H Lymph % (Auto) 3.7 L [place] % (Auto) 8.9 Eos % (Auto) 0.2 Baso % (Auto) 0.1 Absolute Neuts (auto) 19.0 H Absolute Lymphs (auto) 0.81 L Total Counted Not Reportable Differential Comment SCAN Hypochromasia RARE Specimen Type VBG pH VBG pO2 VBG O2 Sat (Calc) VBG O2 Content VBG Base Excess POC Mix VBG pCO2 Pt Tmp Blood Gas Notified Whom Blood Gas Notified Time Sodium Cancelled Potassium Cancelled Chloride Cancelled Carbon Dioxide Cancelled Anion Gap Cancelled BUN Cancelled Creatinine Cancelled Estim Creat Clear Calc Cancelled Est GFR (MDRD) Af Amer Cancelled Est GFR (MDRD) Non-Af Cancelled BUN/Creatinine Ratio Cancelled Glucose Cancelled Lactic Acid Calcium Cancelled Total Bilirubin Cancelled Direct Bilirubin Cancelled AST Cancelled ALT Cancelled Alkaline Phosphatase Cancelled Troponin I Cancelled Total Protein Cancelled Albumin Cancelled Globulin Cancelled Lipase Cancelled Serum , Qual NEGATIVE Urine Color Urine Clarity Urine pH Ur Specific [facility] U Specif Grav (Refrac) Urine Protein Urine Glucose (UA) Urine Ketones Urine Occult Blood Urine Nitrite Urine Bilirubin Urine Urobilinogen Ur Leukocyte Esterase Urine RBC Urine WBC Ur Squamous Epith Cells Ur Transition Epith Cell Ur Renal Epithelial Cell Calcium Oxalate Crystal Uric Acid Crystals Triple Phos Crystals Other Crystals Amorphous Sediment Urine Bacteria Hyaline Casts Fine Granular Casts Coarse Granular Casts Waxy Casts RBC Casts WBC Casts Urine Mucus Urine Trichomonas Urine Yeast Acetone Level 03/19/17 03/20/17 03/20/17 23:40 00:25 00:30 WBC RBC Hgb Hct MCV MCH MCHC RDW RDW Differential Plt Count MPV Immature Gran % (Auto) Neut % (Auto) Lymph % (Auto) [place] % (Auto) Eos % (Auto) Baso % (Auto) Absolute Neuts (auto) Absolute Lymphs (auto) Total Counted Differential Comment Hypochromasia Specimen Type VBG pH VBG pO2 VBG O2 Sat (Calc) VBG O2 Content VBG Base Excess POC Mix VBG pCO2 Pt Tmp Blood Gas Notified Whom Blood Gas Notified Time Sodium 135 L Potassium 5.0 Chloride 109 H Carbon Dioxide 10.0 L Anion Gap 16 H BUN 42 H Creatinine 4.24 H Estim Creat Clear Calc 13.81 Est GFR (MDRD) Af Amer 15 L Est GFR (MDRD) Non-Af 12 L BUN/Creatinine Ratio 9.9 L Glucose 363 H Lactic Acid Calcium 8.1 L Total Bilirubin 0.60 Direct Bilirubin 0.15 AST 10 L ALT 14 Alkaline Phosphatase 94 Troponin I 0.10 H Total Protein 6.7 Albumin 2.5 L Globulin 4.2 Lipase 57 L Serum , Qual Urine Color Cancelled Yellow Urine Clarity Cancelled Turbid Urine pH Cancelled 5.0 Ur Specific [facility] Cancelled 1.015 U Specif Grav (Refrac) Cancelled Urine Protein Cancelled 100 H Urine Glucose (UA) Cancelled 250 H Urine Ketones Cancelled 5 H Urine Occult Blood Cancelled 150 H Urine Nitrite Cancelled Negative Urine Bilirubin Cancelled Negative Urine Urobilinogen Cancelled Normal Ur Leukocyte Esterase Cancelled 500 H Urine RBC Cancelled 0 SEEN Urine WBC Cancelled >100 SEEN Ur Squamous Epith Cells Cancelled 0 SEEN Ur Transition Epith Cell Cancelled Ur Renal Epithelial Cell Cancelled Calcium Oxalate Crystal Cancelled Uric Acid Crystals Cancelled Triple Phos Crystals Cancelled Other Crystals Cancelled Amorphous Sediment Cancelled Urine Bacteria Cancelled 2+ Hyaline Casts Cancelled Fine Granular Casts Cancelled Coarse Granular Casts Cancelled Waxy Casts Cancelled RBC Casts Cancelled WBC Casts Cancelled Urine Mucus Cancelled 0 SEEN Urine Trichomonas Cancelled Urine Yeast Cancelled 2+ Acetone Level 03/20/17 03/20/17 03/20/17 02:35 03:01 03:25 WBC RBC Hgb Hct MCV MCH MCHC RDW RDW Differential Plt Count MPV Immature Gran % (Auto) Neut % (Auto) Lymph % (Auto) [place] % (Auto) Eos % (Auto) Baso % (Auto) Absolute Neuts (auto) Absolute Lymphs (auto) Total Counted Differential Comment Hypochromasia Specimen Type MEGAN VBG pH 7.31 L VBG pO2 39 VBG O2 Sat (Calc) 70 VBG O2 Content 11 L VBG Base Excess -16 L POC Mix VBG pCO2 Pt Tmp 21.4 L Blood Gas Notified Whom ED Blood Gas Notified Time 320 Sodium Potassium Chloride Carbon Dioxide Anion Gap BUN Creatinine Estim Creat Clear Calc Est GFR (MDRD) Af Amer Est GFR (MDRD) Non-Af BUN/Creatinine Ratio Glucose Lactic Acid Pending Calcium Total Bilirubin Direct Bilirubin AST ALT Alkaline Phosphatase Troponin I Total Protein Albumin Globulin Lipase Serum , Qual Urine Color Urine Clarity Urine pH Ur Specific [facility] U Specif Grav (Refrac) Urine Protein Urine Glucose (UA) Urine Ketones Urine Occult Blood Urine Nitrite Urine Bilirubin Urine Urobilinogen Ur Leukocyte Esterase Urine RBC Urine WBC Ur Squamous Epith Cells Ur Transition Epith Cell Ur Renal Epithelial Cell Calcium Oxalate Crystal Uric Acid Crystals Triple Phos Crystals Other Crystals Amorphous Sediment Urine Bacteria Hyaline Casts Fine Granular Casts Coarse Granular Casts Waxy Casts RBC Casts WBC Casts Urine Mucus Urine Trichomonas Urine Yeast Acetone Level SMALL H Clinical Impression(s) from Imaging Studies Abdomen/Pelvis CT 03/19/17 22:48 IMPRESSION: 1. Moderate bilateral hydroureteronephrosis which is unchanged, with associated distal migration of a 6-year-old calculus which is now seen at the left ureterovesicular junction. 2. Moderate fluid distention of the urinary bladder suggesting urinary outlet obstruction. 3. Nonobstructing 7 mm calculus in the left lower renal pelvis which is unchanged. Electronically Signed: Faustino Ramirez MD at 0:15 EST Tel , Service support , Assessment/Plan Active and Suspected Problems Sepsis (Acute) UTI (urinary tract infection) (Acute) FRANSICO (acute kidney injury) (Acute) 1. Sepsis Due to urinary tract infection. Patient is urine was abnormal last time she was here but nothing grew out the culture. So we will follow-up on this current urine culture. Patient was started on cefepime in the emergency room. Arms can have her on Rocephin for now and follow-up on the urine culture. Additionally follow-up on the blood cultures. 2. UTI As above I cannot make the distinction if this is a catheter associated UTI or not as patient really was not coming in with urinary tract type symptoms and her catheter has been taken out. 3. Acute kidney injury Likely postobstructive due to the bladder outlet obstruction that the patient still apparently has. Neurology has recommended the catheter being replaced. This is brought to the attention by the emergency room physician and the recommendations. And I have also recommend the catheter be replaced until he further clarify the direction of her kidney function. I did advise patient that if she is declined the catheter that she may have a worsening of her kidney function and potentially could wind up on dialysis. She and her mother wish to think about it further. She did express understanding of the potential for worsening kidney function and potential need for hemodialysis if necessary. 4. Diabetes mellitus type 2, uncontrolled Patient has metabolic acidosis primarily to her that with the patient's kidney dysfunction. I do not feel the patient is diabetic ketoacidosis. Continue with her home regimen of insulin. 5. DVT prophylaxis with subcu heparin Code Visit Inpatient E&M: 61895 Init Hosp L2
[2017-03-20 03:45] LABS: Lactic Acid 1.2 mmol/L (0.4-2.0)
[2017-03-20 04:58] LABS: Pregnancy, Serum, hCG Quali. NEGATIVE Negative (0-9 Nonpreg)
[2017-03-20] MEDS: 0.9% Normal Saline 1,000 ML 125 ML IV ×3 (06:35→21:57)
--- NOTE | 2017-03-20 06:45 | PCM.CONS.U ---
Reason for Consult Date of Consultation: 03/20/17 Reason for Consultation: Retention of urine from diabetes and kidney stone History of Present Illness: The patient is a 41 year old female with a history of poorly controlled diabetes. Presents to the hospital with distended bladder and bilateral hydronephrosis also appears to have a distal right ureteral calculi. Her vital signs are stable with her white count elevated at 21,000. She refused a catheter in the emergency room. I spoke to the patient today and I told her that she needs to do self intermittent catheterization. I will have the nurses start doing self intermittent catheterization every 6 hours and also the need to teach the patient had a do self intermittent catheterization. Plan to strain the urine to see if she will pass a stone but if she fails to pass the stone will take her surgery on Saturday for an extraction of the stone Past Medical History Past Medical History (Chronic Problems): Chronic Problems Type II diabetes mellitus (Chronic) Chronic low back pain (Chronic) Hydroureter (Chronic) Hydronephrosis (Chronic) Bladder outlet obstruction (Chronic) Allergies No Known Allergies Allergy (Verified 03/19/17 22:29) Home Medications: Ambulatory Orders Medication Instructions Recorded Duloxetine Hcl [Cymbalta] 60 mg PO DAILY 03/08/17 Glimepiride [Amaryl] 2 mg PO DAILY 30 Days #30 tab 03/13/17 Insulin Glargine,Hum.rec.anlog 22 unit SQ QHS #0 03/13/17 [Lantus] MedroxyPROGESTERone [Depo-Provera] 150 mg IM QMONTH 03/20/17 Surgical History: no surgical history Psychiatric History: No pertinent psych hx 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 Denies: Dysuria Musculoskeletal: Denies: Joint Pain, Joint Tenderness Skin: Denies: Rash, Wounds Neurological: Denies: Numbness, Tingling, Focal weakness Psychiatric: Denies: Anxiety, Depression, Homicidal Ideations, Suicidal Ideations Hematologic/ Lymphatic: Denies: Easy Bruising, Easy Bleeding Physical Exam - Physical Exam Vital Signs Temp 98.4 F 03/20/17 05:35 Pulse 112 H 03/20/17 05:35 Resp 16 03/20/17 05:35 BP 122/68 H 03/20/17 05:35 Pulse Ox 99 03/20/17 05:35 Intake & Output 03/18/17 03/19/17 03/20/17 23:59 23:59 23:59 Output Total 200 / 200 Balance -200 / -200 Weight: 104.7 kg Output: Urine 200 / 200 General: Alert, Oriented x3 HEENT: Atraumatic Oral: Moist Mucosa Neck: Supple Lungs: Clear to auscultation Cardiovascular: Regular Rhythm Abdomen: Soft Rectal: Exam deferred Extremities: No clubbing, No cyanosis, No edema Skin: No rashes Neurological: Cranial nerves II-XII grossly intact Psych/Mental Status: Normal Affect, Appropriate Assessment/Plan Active and Suspected Problems Sepsis (Acute) UTI (urinary tract infection) (Acute) FRANSICO (acute kidney injury) (Acute) 41-year-old female with poorly controlled diabetes probably would be a good idea to have her see an seed pelleter to help with this situation. I will have the nurses here start on self intermittent catheterization every 6 hours and the need to teach her how to do self catheterizations when she goes home she can do this. Want to strain all urine. On the Adderall for the schedule for Saturday for extraction of the stone if she fails to pass a stone.
--- NOTE | 2017-03-20 06:48 | CON.PCM_ITS ---
Reason for Consult Date of Consultation: 03/20/17 Reason for Consultation: Retention of urine from diabetes and kidney stone History of Present Illness: The patient is a 41 year old female with a history of poorly controlled diabetes. Presents to the hospital with distended bladder and bilateral hydronephrosis also appears to have a distal right ureteral calculi. Her vital signs are stable with her white count elevated at 21,000. She refused a catheter in the emergency room. I spoke to the patient today and I told her that she needs to do self intermittent catheterization. I will have the nurses start doing self intermittent catheterization every 6 hours and also the need to teach the patient had a do self intermittent catheterization. Plan to strain the urine to see if she will pass a stone but if she fails to pass the stone will take her surgery on Saturday for an extraction of the stone Past Medical History Past Medical History (Chronic Problems): Chronic Problems Type II diabetes mellitus (Chronic) Chronic low back pain (Chronic) Hydroureter (Chronic) Hydronephrosis (Chronic) Bladder outlet obstruction (Chronic) Allergies No Known Allergies Allergy (Verified 03/19/17 22:29) Home Medications: Ambulatory Orders Medication Instructions Recorded Duloxetine Hcl [Cymbalta] 60 mg PO DAILY 03/08/17 Glimepiride [Amaryl] 2 mg PO DAILY 30 Days #30 tab 03/13/17 Insulin Glargine,Hum.rec.anlog 22 unit SQ QHS #0 03/13/17 [Lantus] MedroxyPROGESTERone [Depo-Provera] 150 mg IM QMONTH 03/20/17 Surgical History: no surgical history Psychiatric History: No pertinent psych hx 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 Denies: Dysuria Musculoskeletal: Denies: Joint Pain, Joint Tenderness Skin: Denies: Rash, Wounds Neurological: Denies: Numbness, Tingling, Focal weakness Psychiatric: Denies: Anxiety, Depression, Homicidal Ideations, Suicidal Ideations Hematologic/ Lymphatic: Denies: Easy Bruising, Easy Bleeding Physical Exam - Physical Exam Vital Signs Temp 98.4 F 03/20/17 05:35 Pulse 112 H 03/20/17 05:35 Resp 16 03/20/17 05:35 BP 122/68 H 03/20/17 05:35 Pulse Ox 99 03/20/17 05:35 Intake & Output 03/18/17 03/19/17 03/20/17 23:59 23:59 23:59 Output Total 200 / 200 Balance -200 / -200 Weight: 104.7 kg Output: Urine 200 / 200 General: Alert, Oriented x3 HEENT: Atraumatic Oral: Moist Mucosa Neck: Supple Lungs: Clear to auscultation Cardiovascular: Regular Rhythm Abdomen: Soft Rectal: Exam deferred Extremities: No clubbing, No cyanosis, No edema Skin: No rashes Neurological: Cranial nerves II-XII grossly intact Psych/Mental Status: Normal Affect, Appropriate Assessment/Plan Active and Suspected Problems Sepsis (Acute) UTI (urinary tract infection) (Acute) FRANSICO (acute kidney injury) (Acute) 41-year-old female with poorly controlled diabetes probably would be a good idea to have her see an stitcher special machine to help with this situation. I will have the nurses here start on self intermittent catheterization every 6 hours and the need to teach her how to do self catheterizations when she goes home she can do this. Want to strain all urine. On the Adderall for the schedule for Saturday for extraction of the stone if she fails to pass a stone.
[2017-03-20 07:03] LABS: Absolute Neutrophil Count 12.4 X10^3/uL (2.0-7.7); Basophil# 0.02 X10^3/uL; Basophil% 0.1 % (0-1); Eosinophil# 0.09 X10^3/uL; Eosinophils% 0.6 % (0-5); Hematocrit 23.8 % (37-47); Hemoglobin 8.3 g/dl (12.0-15.0); Lymphocyte % 4.6 % (19-41); Mean Corp Hgb Conc 34.9 g/gl (32-36); Mean Corpuscular Hgb 26.3 pg (27.0-32.0); Mean Corpuscular Volume 75.3 fL (81-99); Mean Platelet Vol. 8.3 fl (6.2-12.0); Monocyte# 1.88 X10^3/uL; Monocyte% 12.5 % (0-10); Neutrophil # 12.35 X10^3/uL (2.7-7.7); Platelet Count 262 K/mm3 (150-450); RBC Distribution Width CV 14.7 % (11.6-14.6); RBC Distribution Width SD 40.5 fl (35.1-43.9); Red Blood Count 3.16 M/mm3 (4.2-5.4); White Blood Count 15.1 K/mm3 (4.4-11.0)
[2017-03-20 07:04] LABS: Differential Indicated SCAN CRITERIA MET; POSITIVE COUNT NO; POSITIVE DIFFERENTIAL YES; POSITIVE MORPHOLOGY YES
[2017-03-20 07:11] LABS: Bedside Glucose 352 mg/dL (70-110)
[2017-03-20 07:18] LABS: Anion Gap 13 (5-15); BUN 48 mg/dL (7-18); BUN/Creat Ratio 9.7 RATIO (10-20); Calcium,Total 8.5 mg/dL (8.5-10.1); Chloride 106 mmol/L (98-107); Creatinine, Serum 4.97 mg/dL (0.55-1.02); EST Glomerular Filtration Rate 10 mL/min (>60); Est Glom Filt Rate - Afr Amer 12 mL/min (>60); Estimated Creatinine Clearance 11.78 ml/min; Glucose 368 mg/dL (70-110); Sodium Level 134 mmol/L (136-145)
--- NOTE | 2017-03-20 09:03 | PN_ITS ---
Patient Problems: Active and Suspected Problems Sepsis (Acute) UTI (urinary tract infection) (Acute) FRANSICO (acute kidney injury) (Acute) Subjective: Patient is a 41-year-old lady recently discharged from the hospital following admission with obstructive uropathy attributed to renal calculi readmitted this a.m. with intractable nausea and vomiting. Patient was found to have acute cystitis on admission with worsening kidney function. Objective: GENERAL: Appears ill looking HEENT: Clear conjunctiva, NECK; supple, normal thyroid, CHEST: Clear to auscultation bilaterally, HEART: Regular S1 S2, no audible murmurs ABDOMEN: soft, non-tender, normoactive bowel sounds, RECTAL: deferred EXTREMITIES: No edema, no clubbing, no cyanosis. 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 SKIN: Skin Vitals/I&O's: Vital Signs Temp Pulse Resp BP Pulse Ox 97.4 F L 111 H 18 125/81 H 100 03/20/17 08:34 03/20/17 08:34 03/20/17 08:34 03/20/17 08:34 03/20/17 08:34 Oxygen Delivery Method Room Air Weight: 104.7 kg Body Mass Index (BMI) 42.2 Intake and Output for Last 24 Hours 03/18/17 03/19/17 03/20/17 23:59 23:59 23:59 Output Total 200 / 200 Balance -200 / -200 Laboratory Results 03/20/17 06:45: WBC 15.1 H, RBC 3.16 L, Hgb 8.3 L, Hct 23.8 L, MCV 75.3 L, MCH 26.3 L, MCHC 34.9, RDW 14.7 H, RDW Differential 40.5, Plt Count 262, MPV 8.3, Immature Gran % (Auto) 0.200, Neut % (Auto) 82.0 H, Lymph % (Auto) 4.6 L, [place] % (Auto) 12.5 H, Eos % (Auto) 0.6, Baso % (Auto) 0.1, Absolute Neuts (auto) 12.4 H, Absolute Lymphs (auto) 0.70 L, Total Counted Not Reportable 03/20/17 06:45: Sodium 134 L, Potassium 5.0, Chloride 106, Carbon Dioxide 15.0 L , Anion Gap 13, BUN 48 H, Creatinine 4.97 H, Estim Creat Clear Calc 11.78, Est GFR (MDRD) Af Amer 12 L, Est GFR (MDRD) Non-Af 10 L, BUN/Creatinine Ratio 9.7 L , Glucose 368 H, Calcium 8.5 03/20/17 07:02: POC Glucose 352 H Current Medications Acetaminophen (Tylenol) 650 mg PO Q6H PRN PRN PRN Reason: Mild Pain (scale 0-3)/T>100.7 Duloxetine HCl (Cymbalta) 60 mg PO DAILY REPLACED BY [facility] Heparin Sodium (Porcine) () 5,000 units SC BID REPLACED BY [facility] Sodium Chloride () 1,000 mls @ 125 mls/hr IV .Q8H REPLACED BY [facility] Last Admin: 03/20/17 06:35 Dose: 125 mls/hr Ceftriaxone Sodium (Rocephin) 1 gm in 50 mls @ 100 mls/hr IV Q24 REPLACED BY [facility] Insulin Aspart (Novolog Flexpen (Bkc)) 6 units SC TIDAC REPLACED BY [facility] Last Admin: 03/20/17 08:29 Dose: 6 u Insulin Detemir (Levemir (Bkc)) 22 units SC QHS REPLACED BY [facility] Magnesium Hydroxide (Milk Of Magnesia) 30 ml PO DAILY PRN PRN PRN Reason: Constipation Ondansetron HCl (Zofran) 4 mg IV Q8H PRN PRN PRN Reason: Nausea Sodium Chloride () 5 - 30 ml IV UD PRN PRN Reason: SALINE FLUSH Assessment/Plan Active and Suspected Problems Sepsis (Acute) UTI (urinary tract infection) (Acute) FRANSICO (acute kidney injury) (Acute) Patient is a 41-year-old lady recently discharged from the hospital following admission with obstructive uropathy attributed to renal calculi readmitted this a.m. with intractable nausea and vomiting. Patient was found to have acute cystitis on admission with worsening kidney function. 1. Sepsis secondary to acute cystitis: Patient started on broad-spectrum antibiotic therapy per protocol in addition to IV fluids. Admitted to regular nursing floor after cultures have been sent 2. Obstructive uropathy; again studies obtained on admission demonstrated Moderate bilateral hydroureteronephrosis which is unchanged, with associated distal migration of a 6-year-old calculus which is now seen at the left ureterovesicular junction. Also found to have Moderate fluid distention of the urinary bladder suggesting urinary outlet obstruction. Call placed to urology patient seen by Dr. Martinez; notes and recommendations reviewed 3. Acute kidney injury secondary to obstructive uropathy consult was placed to nephrology plan is for patient to retain her Ross catheter instead of intermittent self-catheterization edwards monitoring her kidney function 4. Diabetes mellitus type 2 controlled with hemoglobin A1c of 15 during patient previous admission. Patient was started on long acting insulin in addition to Accu-Cheks before meals and at bedtime with sliding scale coverage 5. CAD with remote stent placement 6. Depression patient is on Cymbalta 7. Anemia secondary to chronic blood loss from patient previous hematuria monitoring H&H with plans to transfuse if patient becomes symptomatic or hemoglobin falls below 7 8. Chronic back pain on tramadol 9. DVT prophylaxis with subcu heparin 10. Morbid obesity with BMI of 42.2 lifestyle modification including weight loss advised Clinical Impression(s) from Imaging Studies Abdomen/Pelvis CT 03/19/17 22:48 IMPRESSION: 1. Moderate bilateral hydroureteronephrosis which is unchanged, with associated distal migration of a 6-year-old calculus which is now seen at the left ureterovesicular junction. 2. Moderate fluid distention of the urinary bladder suggesting urinary outlet obstruction. 3. Nonobstructing 7 mm calculus in the left lower renal pelvis which is unchanged. Electronically Signed: Faustino Ramirez MD at 0:15 EST Tel , Service support , Chest X-Ray 03/20/17 02:26 IMPRESSION: 1. Appropriate positioning of central venous line. 2. No evidence of acute cardiopulmonary disease. Electronically Signed: Faustino Ramirez MD at 4:04 EST Tel , Service support , Code Visit Procedures: [id number] Prolonged Physician INPT - Time spent on [id number] interaction with the patient, coordination of care with account consultant and adjustment of medications and review of diagnostic data 65 minutes
[2017-03-20] MEDS: Heparin Injection 5,000 UNITS/ML Syringe 5000 UNITS SC ×2 (09:51→22:00)
[2017-03-20] MEDS: Ceftriaxone 1 GM/50 ML BAG IV (09:51)
[2017-03-20] MEDS: DULoxetine Hcl 60 MG Capsule PO (09:51)
[2017-03-20 11:35] LABS: Bedside Glucose 386 mg/dL (70-110)
[2017-03-20] MEDS: Ondansetron 4 MG/2 ML Vial IV ×2 (13:44→21:56)
--- NOTE | 2017-03-20 13:53 | CASEMGMT ---
Readmit Note. Pt discharged 03/13/17 after tx for acute kidney injury, N/V, Hx of diabetes. Ct showed huge bladder with bilateral hydronephrosis, bladder outlet obstruction. Went home with schmidt and leg bag. Now presents with distended bladder and will need taught intermittent catheterization at home. Tx with IVF and Rocephin. Nursing will be teaching intermittent catheterization and pt will need script for supplies and possibly home health on dc. Haleigh VILA BSN ACM
[2017-03-20] MEDS: Acetaminophen 325 MG Tablet 650 MG PO (13:56)
--- NOTE | 2017-03-20 16:49 | PCM.CONS.R ---
Consultation - Renal 03/20/17 PCP/ Referring MD: Requesting physician: Samson Coffey Primary care physician: Jessica Ayala, DIRECTOR OF PHYSIOTHERAPY SERVICES-C Reason for Consultation:: Acute kidney injury - History of Present Illness History of Present Illness: The patient is a 41 year old F with poorly controlled diabetes and diabetic nephropathy was hospitalized on 03/08 with acute kidney injury due to urinary retention, obstruction presents with nausea and vomiting with worsening renal function again on 03/20. Creatinine was 7.38 during last hospitalization on 03/08 improved down to 2.88 on March 13 with indwelling Ross catheter. Creatinine was 4.24 in the emergency room increased to 4.97 EGFR 11 cc/min this morning. Currently she is receiving IV fluids. She continues to be nauseated. She had leukocytosis with elevated white count started on Rocephin for presumptive UTI. She had a foul odor and discoloration of her urine. She had mild flank pain, denied dysuria. She has a history of poorly controlled sugars with hemoglobin A1c of 15 on March 08. She was instructed to continue with her self-catheterization at home but had failed to follow medical advice. Renal ultrasound and CT of the abdomen revealed bilateral hydronephrosis with distended bladder. Her urine volumes with self-catheterization have been about 500cc to a liter at a time. Currently she is straight cathed every 6 hours. She refused indwelling Ross catheter due to discomfort with insertion during last hospitalization. Urology has been consulted. She has nonobstructive kidney stones in the left kidney. She denied any fever or chills, chest pain, shortness of breath. She does have a history of heart disease status post cardiac stent in 2007. She is adopted so her family history is unknown. Potassium levels mildly elevated at 5.0 with metabolic acidosis and had ketones in her urine on admission. Sugars have been running over 300. - Allergies Allergies: Allergies No Known Allergies Allergy (Verified 03/19/17 22:29) - Current Medications Current Medications: Current Medications Acetaminophen (Tylenol) 650 mg PO Q6H PRN PRN PRN Reason: Mild Pain (scale 0-3)/T>100.7 Last Admin: 03/20/17 13:56 Dose: 650 mg Duloxetine HCl (Cymbalta) 60 mg PO DAILY [facility] Last Admin: 03/20/17 09:51 Dose: 60 mg Heparin Sodium (Porcine) () 5,000 units SC BID [facility] Last Admin: 03/20/17 09:51 Dose: 5,000 units Sodium Chloride () 1,000 mls @ 125 mls/hr IV .Q8H [facility] Last Admin: 03/20/17 13:57 Dose: 125 mls/hr Ceftriaxone Sodium (Rocephin) 1 gm in 50 mls @ 100 mls/hr IV Q24 [facility] Last Admin: 03/20/17 09:51 Dose: 100 mls/hr Insulin Aspart (Novolog Flexpen (Bkc)) 10 units SC TIDAC [facility] Insulin Detemir (Levemir (Bkc)) 30 units SC QHS [facility] Magnesium Hydroxide (Milk Of Magnesia) 30 ml PO DAILY PRN PRN PRN Reason: Constipation Nutritional Formula (Lactose Free) (Ensure Clear) 120 ml PO 4X/DAY [facility] Last Admin: 03/20/17 13:54 Dose: Not Given Ondansetron HCl (Zofran) 4 mg IV Q8H PRN PRN PRN Reason: Nausea Last Admin: 03/20/17 13:44 Dose: 4 mg Sodium Chloride () 5 - 30 ml IV UD PRN PRN Reason: SALINE FLUSH - Past Medical History Past Medical History (Chronic Problems): Chronic Problems Type II diabetes mellitus (Chronic) Chronic low back pain (Chronic) Hydroureter (Chronic) Hydronephrosis (Chronic) Bladder outlet obstruction (Chronic) - Past Surgical History Surgical History: angioplasty - With cardiac stent, - - Carpal tunnel right wrist - Social History Marital Status: Single - Patient adopted Smoking Status: Never smoker Alcohol: None Drugs: None - Family History Maternal History Items: Unknown - Vision is adopted Review of Systems Constitutional: Reports: Anorexia, Weakness, Fatigue. Denies: Chills, Fever Eyes: Denies: Blurred vision - No history of retinopathy HEENT: Denies: Head Aches, Sore Throat, Visual Changes Cardiovascular: Denies: Chest Pain, Edema, Syncope Respiratory: Denies: Cough, Shortness of Breath Gastrointestinal: Reports: Abdominal Pain, Nausea, Vomiting. Denies: Diarrhea Genitourinary: Reports: Retention - Self caths at home but has history of noncompliance, - - Flank pain. Denies: Dysuria Musculoskeletal: Denies: Arm Pain, Back Pain, Muscle pain Skin: Reports: - - Denies abscess formation.. Denies: Rash Neurological: Denies: Balance problems, Confusion, Tremor, Seizures Psychiatric: Denies: Anxiety, Depression Hematologic/ Lymphatic: Reports: Anemia. Denies: Hx of blood clot Patient Problems: Active and Suspected Problems Bilateral hydronephrosis (Acute) Ureteral calculi (Acute) Metabolic acidosis (Acute) Iron deficiency anemia (Acute) Sepsis (Acute) UTI (urinary tract infection) (Acute) FRANSICO (acute kidney injury) (Acute) - Physical Exam General: Alert, Oriented x3, Cooperative, No apparent distress HEENT: PERRLA, EOMI Oral: Moist Mucosa Neck: Supple, No JVD Lungs: Clear to auscultation Cardiovascular: Regular rate Abdomen: Bowel Sounds Present, Soft, Non Tender, Non-Distended, Obese Extremities: No edema Skin: No rashes, - - Tattoo back of neck Musculoskeletal: No Muscle Wasting Lymphatic: No Cervical, Supraclavicular, or Inguinal Adenopathy Neurological: Cranial nerves II-XII grossly intact Psych/Mental Status: Normal Affect, Appropriate, Alert and oriented to time, place, person, mood and affect Vital Signs Temp Pulse Resp BP Pulse Ox 98.7 F 113 H 16 105/66 100 03/20/17 13:47 03/20/17 13:47 03/20/17 13:47 03/20/17 13:47 03/20/17 13:47 Oxygen Delivery Method Room Air Weight: 104.7 kg Body Mass Index (BMI) 42.2 Intake and Output for Last 24 Hours 03/18/17 03/19/17 03/20/17 23:59 23:59 23:59 Intake Total 1082 / 1082 Output Total 1150 / 1150 Balance -68 / -68 Laboratory Tests Past 24 Hrs 03/20/17 03/20/17 06:45 06:45 WBC 15.1 H RBC 3.16 L Hgb 8.3 L Hct 23.8 L MCV 75.3 L MCH 26.3 L MCHC 34.9 RDW 14.7 H RDW Differential 40.5 Plt Count 262 MPV 8.3 Immature Gran % (Auto) 0.200 Neut % (Auto) 82.0 H Lymph % (Auto) 4.6 L [place] % (Auto) 12.5 H Eos % (Auto) 0.6 Baso % (Auto) 0.1 Absolute Neuts (auto) 12.4 H Absolute Lymphs (auto) 0.70 L Total Counted Not Reportable Sodium 134 L Potassium 5.0 Chloride 106 Carbon Dioxide 15.0 L Anion Gap 13 BUN 48 H Creatinine 4.97 H Estim Creat Clear Calc 11.78 Est GFR (MDRD) Af Amer 12 L Est GFR (MDRD) Non-Af 10 L BUN/Creatinine Ratio 9.7 L Glucose 368 H Calcium 8.5 POC Glucose 03/20/17 03/20/17 11:21 07:02 POC Glucose 386 H 352 H Clinical Impression(s) from Imaging Studies Abdomen/Pelvis CT 03/19/17 22:48 IMPRESSION: 1. Moderate bilateral hydroureteronephrosis which is unchanged, with associated distal migration of a 6-year-old calculus which is now seen at the left ureterovesicular junction. 2. Moderate fluid distention of the urinary bladder suggesting urinary outlet obstruction. 3. Nonobstructing 7 mm calculus in the left lower renal pelvis which is unchanged. Electronically Signed: Faustino Ramirez MD at 0:15 EST Tel , Service support , Chest X-Ray 03/20/17 02:26 IMPRESSION: 1. Appropriate positioning of central venous line. 2. No evidence of acute cardiopulmonary disease. Electronically Signed: Faustino Ramirez MD at 4:04 EST Tel , Service support , Assessment/Plan Active and Suspected Problems Bilateral hydronephrosis (Acute) Ureteral calculi (Acute) Metabolic acidosis (Acute) Iron deficiency anemia (Acute) Sepsis (Acute) UTI (urinary tract infection) (Acute) FRANSICO (acute kidney injury) (Acute) 1. FRANSICO on CKD stage IV due to urinary retention. Bilateral hydronephrosis with distended bladder found on CT of the abdomen and kidney ultrasound. History of noncompliance with her self catheterization at home. Also may have dehydration component with nausea and vomiting due to renal failure. Currently treated for UTI with IV antibiotics. Cultures pending. She likely has underlying diabetic nephropathy with a history of noncompliance with her sugar control. Discussed at length regarding dialysis modality. She will need to prepare for dialysis in the near future if she does not improve her sugar control and continue to be noncompliant with her self catheterizations. Creatinine was 2.88 EGFR 20 cc/min on March 13 on discharge last visit. Creatinine now 4.97 EGFR of 11 cc/min. We will continue with IV hydration and monitor daily labs. Recommended indwelling Ross catheter however patient refused due to discomfort from last hospitalization. We will increase frequency of her straight cath to every 3 hours. 2. Obstructive uropathy from urinary retention from diabetic neurogenic bladder. Consider suprapubic catheter since patient refuses Ross catheter due to discomfort and pain. Discussed with urology 3. Obstructive kidney stone follow-up with urology 4. Diabetes mellitus type 2 with noncompliance with sugar control. Last hemoglobin A1c was 15 on March 08. Discussed importance of diabetic control to slow and progressive diabetic kidney disease. 5. Iron deficiency anemia IV iron therapy. Discharge on oral iron. 6. Hyperkalemia follow low potassium diet. Start sodium bicarbonate tablets 7. Metabolic acidosis from renal failure. Start bicarbonate tablets 8. Coronary artery disease status post cardiac stent in 2007 9. morbid obesity discussed diet and exercise.
--- NOTE | 2017-03-20 17:04 | CON.PCM_ITS ---
Consultation - Renal 03/20/17 PCP/ Referring MD: Requesting physician: Samson Coffey Primary care physician: Jessica Ayala, GRAPHIC ART TECHNICIAN-C Reason for Consultation:: Acute kidney injury - History of Present Illness History of Present Illness: The patient is a 41 year old F with poorly controlled diabetes and diabetic nephropathy was hospitalized on 03/08 with acute kidney injury due to urinary retention, obstruction presents with nausea and vomiting with worsening renal function again on 03/20. Creatinine was 7.38 during last hospitalization on improved down to 2.88 on March 13 with indwelling Ross catheter. Creatinine was 4.24 in the emergency room increased to 4.97 EGFR 11 cc/min this morning. Currently she is receiving IV fluids. She continues to be nauseated. She had leukocytosis with elevated white count started on Rocephin for presumptive UTI. She had a foul odor and discoloration of her urine. She had mild flank pain, denied dysuria. She has a history of poorly controlled sugars with hemoglobin A1c of 15 on March 08. She was instructed to continue with her self-catheterization at home but had failed to follow medical advice. Renal ultrasound and CT of the abdomen revealed bilateral hydronephrosis with distended bladder. Her urine volumes with self-catheterization have been about 500cc to a liter at a time. Currently she is straight cathed every 6 hours. She refused indwelling Ross catheter due to discomfort with insertion during last hospitalization. Urology has been consulted. She has nonobstructive kidney stones in the left kidney. She denied any fever or chills, chest pain, shortness of breath. She does have a history of heart disease status post cardiac stent in 2007. She is adopted so her family history is unknown. Potassium levels mildly elevated at 5.0 with metabolic acidosis and had ketones in her urine on admission. Sugars have been running over 300. - Allergies Allergies: Allergies No Known Allergies Allergy (Verified 03/19/17 22:29) - Current Medications Current Medications: Current Medications Acetaminophen (Tylenol) 650 mg PO Q6H PRN PRN PRN Reason: Mild Pain (scale 0-3)/T>100.7 Last Admin: 03/20/17 13:56 Dose: 650 mg Duloxetine HCl (Cymbalta) 60 mg PO DAILY [facility] Last Admin: 03/20/17 09:51 Dose: 60 mg Heparin Sodium (Porcine) () 5,000 units SC BID [facility] Last Admin: 03/20/17 09:51 Dose: 5,000 units Sodium Chloride () 1,000 mls @ 125 mls/hr IV .Q8H [facility] Last Admin: 03/20/17 13:57 Dose: 125 mls/hr Ceftriaxone Sodium (Rocephin) 1 gm in 50 mls @ 100 mls/hr IV Q24 [facility] Last Admin: 03/20/17 09:51 Dose: 100 mls/hr Insulin Aspart (Novolog Flexpen (Bkc)) 10 units SC TIDAC [facility] Insulin Detemir (Levemir (Bkc)) 30 units SC QHS [facility] Magnesium Hydroxide (Milk Of Magnesia) 30 ml PO DAILY PRN PRN PRN Reason: Constipation Nutritional Formula (Lactose Free) (Ensure Clear) 120 ml PO 4X/DAY [facility] Last Admin: 03/20/17 13:54 Dose: Not Given Ondansetron HCl (Zofran) 4 mg IV Q8H PRN PRN PRN Reason: Nausea Last Admin: 03/20/17 13:44 Dose: 4 mg Sodium Chloride () 5 - 30 ml IV UD PRN PRN Reason: SALINE FLUSH - Past Medical History Past Medical History (Chronic Problems): Chronic Problems Type II diabetes mellitus (Chronic) Chronic low back pain (Chronic) Hydroureter (Chronic) Hydronephrosis (Chronic) Bladder outlet obstruction (Chronic) - Past Surgical History Surgical History: angioplasty - With cardiac stent, - - Carpal tunnel right wrist - Social History Marital Status: Single - Patient adopted Smoking Status: Never smoker Alcohol: None Drugs: None - Family History Maternal History Items: Unknown - Vision is adopted Review of Systems Constitutional: Reports: Anorexia, Weakness, Fatigue. Denies: Chills, Fever Eyes: Denies: Blurred vision - No history of retinopathy HEENT: Denies: Head Aches, Sore Throat, Visual Changes Cardiovascular: Denies: Chest Pain, Edema, Syncope Respiratory: Denies: Cough, Shortness of Breath Gastrointestinal: Reports: Abdominal Pain, Nausea, Vomiting. Denies: Diarrhea Genitourinary: Reports: Retention - Self caths at home but has history of noncompliance, - - Flank pain. Denies: Dysuria Musculoskeletal: Denies: Arm Pain, Back Pain, Muscle pain Skin: Reports: - - Denies abscess formation.. Denies: Rash Neurological: Denies: Balance problems, Confusion, Tremor, Seizures Psychiatric: Denies: Anxiety, Depression Hematologic/ Lymphatic: Reports: Anemia. Denies: Hx of blood clot Patient Problems: Active and Suspected Problems Bilateral hydronephrosis (Acute) Ureteral calculi (Acute) Metabolic acidosis (Acute) Iron deficiency anemia (Acute) Sepsis (Acute) UTI (urinary tract infection) (Acute) FRANSICO (acute kidney injury) (Acute) - Physical Exam General: Alert, Oriented x3, Cooperative, No apparent distress HEENT: PERRLA, EOMI Oral: Moist Mucosa Neck: Supple, No JVD Lungs: Clear to auscultation Cardiovascular: Regular rate Abdomen: Bowel Sounds Present, Soft, Non Tender, Non-Distended, Obese Extremities: No edema Skin: No rashes, - - Tattoo back of neck Musculoskeletal: No Muscle Wasting Lymphatic: No Cervical, Supraclavicular, or Inguinal Adenopathy Neurological: Cranial nerves II-XII grossly intact Psych/Mental Status: Normal Affect, Appropriate, Alert and oriented to time, place, person, mood and affect Vital Signs Temp Pulse Resp BP Pulse Ox 98.7 F 113 H 16 105/66 100 03/20/17 13:47 03/20/17 13:47 03/20/17 13:47 03/20/17 13:47 03/20/17 13:47 Oxygen Delivery Method Room Air Weight: 104.7 kg Body Mass Index (BMI) 42.2 Intake and Output for Last 24 Hours 03/18/17 03/19/17 03/20/17 23:59 23:59 23:59 Intake Total 1082 / 1082 Output Total 1150 / 1150 Balance -68 / -68 Laboratory Tests Past 24 Hrs 03/20/17 03/20/17 06:45 06:45 WBC 15.1 H RBC 3.16 L Hgb 8.3 L Hct 23.8 L MCV 75.3 L MCH 26.3 L MCHC 34.9 RDW 14.7 H RDW Differential 40.5 Plt Count 262 MPV 8.3 Immature Gran % (Auto) 0.200 Neut % (Auto) 82.0 H Lymph % (Auto) 4.6 L Dougherty % (Auto) 12.5 H Eos % (Auto) 0.6 Baso % (Auto) 0.1 Absolute Neuts (auto) 12.4 H Absolute Lymphs (auto) 0.70 L Total Counted Not Reportable Sodium 134 L Potassium 5.0 Chloride 106 Carbon Dioxide 15.0 L Anion Gap 13 BUN 48 H Creatinine 4.97 H Estim Creat Clear Calc 11.78 Est GFR (MDRD) Af Amer 12 L Est GFR (MDRD) Non-Af 10 L BUN/Creatinine Ratio 9.7 L Glucose 368 H Calcium 8.5 POC Glucose 03/20/17 03/20/17 11:21 07:02 POC Glucose 386 H 352 H Clinical Impression(s) from Imaging Studies Abdomen/Pelvis CT 03/19/17 22:48 IMPRESSION: 1. Moderate bilateral hydroureteronephrosis which is unchanged, with associated distal migration of a 6-year-old calculus which is now seen at the left ureterovesicular junction. 2. Moderate fluid distention of the urinary bladder suggesting urinary outlet obstruction. 3. Nonobstructing 7 mm calculus in the left lower renal pelvis which is unchanged. Electronically Signed: Faustino Ramirez MD at 0:15 EST Tel , Service support , Chest X-Ray 03/20/17 02:26 IMPRESSION: 1. Appropriate positioning of central venous line. 2. No evidence of acute cardiopulmonary disease. Electronically Signed: Faustino Ramirez MD at 4:04 EST Tel , Service support , Assessment/Plan Active and Suspected Problems Bilateral hydronephrosis (Acute) Ureteral calculi (Acute) Metabolic acidosis (Acute) Iron deficiency anemia (Acute) Sepsis (Acute) UTI (urinary tract infection) (Acute) FRANSICO (acute kidney injury) (Acute) 1. FRANSICO on CKD stage IV due to urinary retention. Bilateral hydronephrosis with distended bladder found on CT of the abdomen and kidney ultrasound. History of noncompliance with her self catheterization at home. Also may have dehydration component with nausea and vomiting due to renal failure. Currently treated for UTI with IV antibiotics. Cultures pending. She likely has underlying diabetic nephropathy with a history of noncompliance with her sugar control. Discussed at length regarding dialysis modality. She will need to prepare for dialysis in the near future if she does not improve her sugar control and continue to be noncompliant with her self catheterizations. Creatinine was 2.88 EGFR 20 cc/min on March 13 on discharge last visit. Creatinine now 4.97 EGFR of 11 cc/min. We will continue with IV hydration and monitor daily labs. Recommended indwelling Ross catheter however patient refused due to discomfort from last hospitalization. We will increase frequency of her straight cath to every 3 hours. 2. Obstructive uropathy from urinary retention from diabetic neurogenic bladder. Consider suprapubic catheter since patient refuses Ross catheter due to discomfort and pain. Discussed with urology 3. Obstructive kidney stone follow-up with urology 4. Diabetes mellitus type 2 with noncompliance with sugar control. Last hemoglobin A1c was 15 on March 08. Discussed importance of diabetic control to slow and progressive diabetic kidney disease. 5. Iron deficiency anemia IV iron therapy. Discharge on oral iron. 6. Hyperkalemia follow low potassium diet. Start sodium bicarbonate tablets 7. Metabolic acidosis from renal failure. Start bicarbonate tablets 8. Coronary artery disease status post cardiac stent in 2007 9. morbid obesity discussed diet and exercise.
[2017-03-20 17:56] LABS: Bedside Glucose 323 mg/dL (70-110)
[2017-03-20] MEDS: Sodium Bicarbonate 650 MG Tablet 325 MG PO (18:15)
[2017-03-20] MEDS: 0.9% NaCl Peripheral Flush Adult/Peds IV (21:56)
[2017-03-20 22:11] LABS: Bedside Glucose 213 mg/dL (70-110)
[2017-03-21 03:54] VITALS: BP 117/76; PULSE 106; RESP 18; TEMP 36.6; O2SAT 96
[2017-03-21 05:34] LABS: Hematocrit 25.5 % (37-47); Hemoglobin 8.8 g/dl (12.0-15.0); Mean Corp Hgb Conc 34.5 g/gl (32-36); Mean Corpuscular Hgb 25.9 pg (27.0-32.0); Mean Platelet Vol. 8.5 fl (6.2-12.0); Platelet Count 267 K/mm3 (150-450); RBC Distribution Width CV 15.1 % (11.6-14.6); Scan Indicated on CBC? Y/N NO; White Blood Count 15.6 K/mm3 (4.4-11.0)
[2017-03-21 05:49] LABS: Anion Gap 12 (5-15); BUN 45 mg/dL (7-18); BUN/Creat Ratio 9.2 RATIO (10-20); Calcium,Total 8.5 mg/dL (8.5-10.1); Chloride 110 mmol/L (98-107); Creatinine, Serum 4.91 mg/dL (0.55-1.02); EST Glomerular Filtration Rate 10 mL/min (>60); Est Glom Filt Rate - Afr Amer 13 mL/min (>60); Estimated Creatinine Clearance 11.93 ml/min; Glucose 199 mg/dL (70-110); Magnesium 1.7 mg/dL (1.8-2.4); Potassium 4.7 mmol/L (3.5-5.1); Sodium Level 138 mmol/L (136-145)
[2017-03-21] MEDS: 0.9% Normal Saline 1,000 ML 125 ML IV ×2 (06:08→18:56)
--- NOTE | 2017-03-21 07:35 | PCM.PN.HOSP ---
Patient Problems: Active and Suspected Problems Metabolic acidosis (Acute) Iron deficiency anemia (Acute) Sepsis (Acute) UTI (urinary tract infection) (Acute) FRANSICO (acute kidney injury) (Acute) Subjective: Patient seen still complains of significant nausea. No significant improvement in her kidney function. Patient was seen by Dr. Martinez he plans for cystoscopy and ureteroscopy hopefully extraction of the stone if the patient does not pass stone by 03/22/17 Objective: GENERAL: Appears ill looking HEENT: Clear conjunctiva, NECK; supple, normal thyroid, CHEST: Clear to auscultation bilaterally, HEART: Regular S1 S2, no audible murmurs ABDOMEN: soft, non-tender, normoactive bowel sounds, RECTAL: deferred EXTREMITIES: No edema, no clubbing, no cyanosis. CELL TUBER MACHINE: Awake, no lateralizing signs. SKIN: Skin Vitals/I&O's: Vital Signs Temp Pulse Resp BP Pulse Ox 97.9 F 106 H 18 117/76 96 03/21/17 03:54 03/21/17 03:54 03/21/17 03:54 03/21/17 03:54 03/21/17 03:54 Oxygen Delivery Method Room Air Weight: 104.7 kg Body Mass Index (BMI) 42.2 Intake and Output for Last 24 Hours 03/19/17 03/20/17 03/21/17 23:59 23:59 23:59 Intake Total 3025 / 3025 100 / 100 Output Total 2200 / 2200 400 / 400 Balance 825 / 825 -300 / -300 Laboratory Results 03/20/17 06:45: Total Counted Not Reportable 03/20/17 11:21: POC Glucose 386 H 03/20/17 17:46: POC Glucose 323 H 03/20/17 22:03: POC Glucose 213 H 03/21/17 04:25: WBC 15.6 H, RBC 3.40 L, Hgb 8.8 L, Hct 25.5 L, MCV 75.0 L, MCH 25.9 L, MCHC 34.5, RDW 15.1 H, RDW Differential 41.0, Plt Count 267, MPV 8.5 03/21/17 04:25: Sodium 138, Potassium 4.7, Chloride 110 H, Carbon Dioxide 16.0 L, Anion Gap 12, BUN 45 H, Creatinine 4.91 H, Estim Creat Clear Calc 11.93, Est GFR (MDRD) Af Amer 13 L, Est GFR (MDRD) Non-Af 10 L, BUN/Creatinine Ratio 9.2 L, Glucose 199 H, Calcium 8.5, Magnesium 1.7 L 03/21/17 04:25: Vitamin D 25-Hydroxy Pending 03/21/17 04:25: PTH Intact Pending Current Medications Acetaminophen (Tylenol) 650 mg PO Q6H PRN PRN PRN Reason: Mild Pain (scale 0-3)/T>100.7 Last Admin: 03/20/17 13:56 Dose: 650 mg Duloxetine HCl (Cymbalta) 60 mg PO DAILY [facility] Last Admin: 03/20/17 09:51 Dose: 60 mg Heparin Sodium (Porcine) () 5,000 units SC BID [facility] Last Admin: 03/20/17 22:00 Dose: 5,000 units Sodium Chloride () 1,000 mls @ 125 mls/hr IV .Q8H [facility] Last Admin: 03/21/17 06:08 Dose: 125 mls/hr Ceftriaxone Sodium (Rocephin) 1 gm in 50 mls @ 100 mls/hr IV Q24 [facility] Last Admin: 03/20/17 09:51 Dose: 100 mls/hr Magnesium Sulfate 2 gm/ (Dextrose) 104 mls @ 52 mls/hr IV X1 ONE Stop: 03/21/17 08:23 Last Admin: 03/21/17 07:02 Dose: 52 mls/hr Vancomycin HCl 2,000 mg/ (Dextrose) 540 mls @ 260 mls/hr IV X1 ONE Stop: 03/21/17 10:34 Insulin Aspart (Novolog Flexpen (Bkc)) 15 units SC TIDAC [facility] Insulin Detemir (Levemir (Bkc)) 40 units SC QHS [facility] Magnesium Hydroxide (Milk Of Magnesia) 30 ml PO DAILY PRN PRN PRN Reason: Constipation Nutritional Formula (Lactose Free) (Glucerna Shake) 120 ml PO 4X/DAY [facility] Last Admin: 03/20/17 21:58 Dose: Not Given Ondansetron HCl (Zofran) 4 mg IV Q6H PRN PRN PRN Reason: Nausea Promethazine HCl (Phenergan (Ll)) 6.25 mg IV Q4H PRN PRN PRN Reason: NAUSEA/VOMITING Last Admin: 03/21/17 04:15 Dose: 6.25 mg Sodium Bicarbonate (Sodium Bicarbonate) 325 mg PO 4X/DAY [facility] Last Admin: 03/20/17 23:45 Dose: Not Given Sodium Chloride () 5 - 30 ml IV UD PRN PRN Reason: SALINE FLUSH Last Admin: 03/20/17 21:56 Dose: 10 ml Assessment/Plan Active and Suspected Problems Metabolic acidosis (Acute) Iron deficiency anemia (Acute) Sepsis (Acute) UTI (urinary tract infection) (Acute) FRANSICO (acute kidney injury) (Acute) Patient is a 41-year-old lady recently discharged from the hospital following admission with obstructive uropathy attributed to renal calculi readmitted this a.m. with intractable nausea and vomiting. Patient was found to have acute cystitis on admission with worsening kidney function. 1. Sepsis secondary to acute cystitis: Patient started on broad-spectrum antibiotic therapy per protocol in addition to IV fluids. Admitted to regular nursing floor after cultures have been sent patient blood cultures positive for gram-positive cocci in clusters final identification and sensitivities pending. 2. Obstructive uropathy; again studies obtained on admission demonstrated Moderate bilateral hydroureteronephrosis which is unchanged, with associated distal migration of a 6-year-old calculus which is now seen at the left ureterovesicular junction. Also found to have Moderate fluid distention of the urinary bladder suggesting urinary outlet obstruction. Call placed to urology patient seen by Dr. Martinez; notes and recommendations reviewed Patient was seen by Dr. Martinez he plans for cystoscopy and ureteroscopy hopefully extraction of the stone if the patient does not pass stone by 03/22/17 3. Acute kidney injury secondary to obstructive uropathy consult was placed to nephrology seen by Dr. Odonnell recommended to retain her Ross catheter instead of intermittent self-catheterization edwards monitoring her kidney function 4. Diabetes mellitus type 2 controlled with hemoglobin A1c of 15 during patient previous admission. Patient was started on long acting insulin in addition to Accu-Cheks before meals and at bedtime with sliding scale coverage 5. CAD with remote stent placement 6. Depression patient is on Cymbalta 7. Anemia secondary to chronic blood loss from patient previous hematuria monitoring H&H with plans to transfuse if patient becomes symptomatic or hemoglobin falls below 7 8. Chronic back pain on tramadol 9. DVT prophylaxis with subcu heparin 10. Morbid obesity with BMI of 42.2 lifestyle modification including weight loss advised Code Visit Inpatient E&M: 92375 Subs Hosp L3
--- NOTE | 2017-03-21 07:52 | PCM.PN.BLA ---
Progress Note 41-year-old female with poorly controlled diabetes and neurogenic bladder. Catheter was placed yesterday per nephrology recommendation to decompress everything which is fine. Urine output is good. Will follow creatinine. Has not passed the stone yet so plan to take her surgery tomorrow to do cystoscopy and ureteroscopy hopefully extraction of the stone probably will try to avoid placing stents. She should be n.p.o. at midnight tonight and will do the surgery tomorrow she has not passed a stone.
[2017-03-21 08:06] LABS: Bedside Glucose 166 mg/dL (70-110)
[2017-03-21 09:43] VITALS: BP 118/79; PULSE 105; RESP 18; TEMP 37; O2SAT 98
[2017-03-21] MEDS: 0.9% NaCl Peripheral Flush Adult/Peds IV ×2 (09:55→17:30)
[2017-03-21] MEDS: Ceftriaxone 1 GM/50 ML BAG IV (09:59)
[2017-03-21] MEDS: DULoxetine Hcl 60 MG Capsule PO (10:19)
[2017-03-21] MEDS: Sodium Bicarbonate 650 MG Tablet 325 MG PO ×3 (10:20→18:57)
[2017-03-21] MEDS: Heparin Injection 5,000 UNITS/ML Syringe 5000 UNITS SC ×2 (10:20→21:05)
[2017-03-21] MEDS: Glucerna Shake 120 ML LIQUID PO ×3 (10:21→18:56)
[2017-03-21 11:40] LABS: Bedside Glucose 197 mg/dL (70-110)
--- NOTE | 2017-03-21 16:29 | PCM.PN.REN ---
Patient Problems: Active and Suspected Problems Bilateral hydronephrosis (Acute) Ureteral calculi (Acute) Metabolic acidosis (Acute) Iron deficiency anemia (Acute) Sepsis (Acute) UTI (urinary tract infection) (Acute) FRANSICO (acute kidney injury) (Acute) Subjective: Ross catheter inserted to continuous drainage. Patient has good urinary output. Creatinine remains elevated at 4.9. She continues to have nausea and dry heaves. IV fluids continued at 125 cc/h. Scheduled for stone extraction in a.m. by . - Physical Exam General: Alert, Oriented x3, Cooperative Oral: Dry Mucosa Neck: Supple Lungs: Clear to auscultation Cardiovascular: Regular rate Abdomen: Bowel Sounds Present, Obese Extremities: No edema Musculoskeletal: No Muscle Wasting Neurological: - Psych/Mental Status: Flat Affect, Depressed, Alert and oriented to time, place, person, mood and affect Vital Signs Temp Pulse Resp BP Pulse Ox 98.6 F 105 H 18 118/79 98 03/21/17 09:43 03/21/17 09:43 03/21/17 09:43 03/21/17 09:43 03/21/17 09:43 Oxygen Delivery Method Room Air Weight: 104.7 kg Body Mass Index (BMI) 42.2 Intake and Output for Last 24 Hours 03/19/17 03/20/17 03/21/17 23:59 23:59 23:59 Intake Total 3025 / 3025 1050 / 1050 Output Total 2200 / 2200 900 / 900 Balance 825 / 825 150 / 150 Laboratory Tests Past 24 Hrs 03/21/17 03/21/17 03/21/17 04:25 04:25 04:25 WBC 15.6 H RBC 3.40 L Hgb 8.8 L Hct 25.5 L MCV 75.0 L MCH 25.9 L MCHC 34.5 RDW 15.1 H RDW Differential 41.0 Plt Count 267 MPV 8.5 Sodium 138 Potassium 4.7 Chloride 110 H Carbon Dioxide 16.0 L Anion Gap 12 BUN 45 H Creatinine 4.91 H Estim Creat Clear Calc 11.93 Est GFR (MDRD) Af Amer 13 L Est GFR (MDRD) Non-Af 10 L BUN/Creatinine Ratio 9.2 L Glucose 199 H Calcium 8.5 Magnesium 1.7 L Vitamin D 25-Hydroxy Pending PTH Intact 03/21/17 04:25 WBC RBC Hgb Hct MCV MCH MCHC RDW RDW Differential Plt Count MPV Sodium Potassium Chloride Carbon Dioxide Anion Gap BUN Creatinine Estim Creat Clear Calc Est GFR (MDRD) Af Amer Est GFR (MDRD) Non-Af BUN/Creatinine Ratio Glucose Calcium Magnesium Vitamin D 25-Hydroxy PTH Intact Pending POC Glucose 03/21/17 03/21/17 03/20/17 11:26 07:44 22:03 POC Glucose 197 H 166 H 213 H 03/20/17 17:46 POC Glucose 323 H Assessment/Plan Active and Suspected Problems Bilateral hydronephrosis (Acute) Ureteral calculi (Acute) Metabolic acidosis (Acute) Iron deficiency anemia (Acute) Sepsis (Acute) UTI (urinary tract infection) (Acute) FRANSICO (acute kidney injury) (Acute) 1. FRANSICO due to urinary retention. Bilateral hydronephrosis with distended bladder on CT of the abdomen and kidney ultrasound. Patient agreed to Ross to CD. Urinary output good but creatinine remains elevated at 4.9. Continue Ross to CD 2. Obstructive uropathy from urinary retention, diabetic neurogenic bladder. History of poorly controlled blood sugars 3. Non-obstructive kidney stone urology following 4. Diabetes mellitus type 2 with noncompliance with sugar control. Last hemoglobin A1c was 15 on March 08. 5. Iron deficiency anemia IV iron therapy. Discharge on oral iron. 6. Hyperkalemia follow low potassium diet. Started sodium bicarbonate tablets 7. Metabolic acidosis from renal failure. Continue bicarbonate tablets 8. Coronary artery disease status post cardiac stent in 2007 9. morbid obesity.
[2017-03-21 17:01] LABS: Bedside Glucose 103 mg/dL (70-110)
[2017-03-21 17:37] VITALS: BP 136/83; PULSE 122; RESP 18; TEMP 36.7; O2SAT 98
[2017-03-21 17:43] VITALS: RESP 18
[2017-03-21] MEDS: Ondansetron 4 MG/2 ML Vial IV (19:32)
[2017-03-21 21:00] VITALS: BP 141/90; PULSE 124; RESP 18; TEMP 36.8; O2SAT 96
[2017-03-21 22:01] LABS: Bedside Glucose 152 mg/dL (70-110)
[2017-03-22] VITALS (12 sets, daily range): BP systolic 98–163; BP diastolic 68–107; PULSE 111–128; RESP 16–18; TEMP 36.2–37.1; O2SAT 10–100; BMI 42.2
[2017-03-22 00:01] LABS: Bedside Glucose 177 mg/dL (70-110)
[2017-03-22] MEDS: 0.9% Normal Saline 1,000 ML 125 ML IV ×3 (02:23→16:37)
[2017-03-22] MEDS: Ondansetron 4 MG/2 ML Vial IV ×2 (05:17→21:16)
[2017-03-22 05:57] LABS: Hematocrit 22.8 % (37-47); Hemoglobin 8.1 g/dl (12.0-15.0); Mean Corp Hgb Conc 35.5 g/gl (32-36); Mean Corpuscular Hgb 26.2 pg (27.0-32.0); Mean Corpuscular Volume 73.8 fL (81-99); Mean Platelet Vol. 8.5 fl (6.2-12.0); Platelet Count 350 K/mm3 (150-450); RBC Distribution Width CV 14.8 % (11.6-14.6); RBC Distribution Width SD 38.3 fl (35.1-43.9); Red Blood Count 3.09 M/mm3 (4.2-5.4); White Blood Count 20.2 K/mm3 (4.4-11.0)
[2017-03-22 06:03] LABS: Scan Indicated on CBC? Y/N YES- FLAGS NOTED
[2017-03-22 06:08] LABS: International Normalized Ratio 1.3
[2017-03-22 06:09] LABS: Partial Thromboplast Time 36.6 Seconds (24.1-36.2)
[2017-03-22 06:27] LABS: Anion Gap 12 (5-15); BUN 43 mg/dL (7-18); Calcium,Total 8.5 mg/dL (8.5-10.1); Chloride 111 mmol/L (98-107); Creatinine, Serum 4.77 mg/dL (0.55-1.02); EST Glomerular Filtration Rate 11 mL/min (>60); Est Glom Filt Rate - Afr Amer 13 mL/min (>60); Estimated Creatinine Clearance 12.28 ml/min; Glucose 154 mg/dL (70-110); Potassium 4.7 mmol/L (3.5-5.1); Sodium Level 138 mmol/L (136-145)
[2017-03-22 06:33] LABS: Vancomycin, Trough Level 24.1 ug/mL (5.0-15.0)
[2017-03-22 07:21] LABS: Bedside Glucose 153 mg/dL (70-110)
[2017-03-22 07:40] LABS: Hemoglobin A1c 10.4 % (4.2-6.3)
--- NOTE | 2017-03-22 08:33 | PN_ITS ---
Patient Problems: Active and Suspected Problems Metabolic acidosis (Acute) Iron deficiency anemia (Acute) Sepsis (Acute) UTI (urinary tract infection) (Acute) FRANSICO (acute kidney injury) (Acute) Subjective: Patient is seen still complains of flank pain scheduled to undergo cystoscopy and ureteroscopy with possible extraction of the stone ion 03/22/17 Objective: GENERAL: Appears ill looking HEENT: Clear conjunctiva, NECK; supple, normal thyroid, CHEST: Clear to auscultation bilaterally, HEART: Regular S1 S2, no audible murmurs ABDOMEN: soft, non-tender, normoactive bowel sounds, RECTAL: deferred EXTREMITIES: No edema, no clubbing, no cyanosis. FULFILLMENT REPRESENTATIVE: Awake, no lateralizing signs. Vitals/I&O's: Vital Signs Temp Pulse Resp BP Pulse Ox 98.2 F 111 H 16 149/86 H 95 03/22/17 02:53 03/22/17 02:53 03/22/17 02:53 03/22/17 02:53 03/22/17 02:53 Oxygen Delivery Method Room Air Weight: 104.7 kg Body Mass Index (BMI) 42.2 Intake and Output for Last 24 Hours 03/20/17 03/21/17 03/22/17 23:59 23:59 23:59 Intake Total 3025 / 3025 1850 / 1850 1400 / 1400 Output Total 2200 / 2200 1300 / 1300 775 / 775 Balance 825 / 825 550 / 550 625 / 625 Laboratory Results 03/21/17 11:26: POC Glucose 197 H 03/21/17 16:54: POC Glucose 103 03/21/17 21:07: POC Glucose 152 H 03/21/17 23:58: POC Glucose 177 H 03/22/17 05:35: WBC 20.2 H, RBC 3.09 L, Hgb 8.1 L, Hct 22.8 L, MCV 73.8 L, MCH 26.2 L, MCHC 35.5, RDW 14.8 H, RDW Differential 38.3, Plt Count 350, MPV 8.5, Differential Comment 03/22/17 05:35: Sodium 138, Potassium 4.7, Chloride 111 H, Carbon Dioxide 15.0 L , Anion Gap 12, BUN 43 H, Creatinine 4.77 H, Estim Creat Clear Calc 12.28, Est GFR (MDRD) Af Amer 13 L, Est GFR (MDRD) Non-Af 11 L, BUN/Creatinine Ratio 9.0 L , Glucose 154 H, Calcium 8.5 03/22/17 05:35: Vancomycin Trough 24.1 H 03/22/17 05:35: PT 16.0 H, INR 1.3, APTT 36.6 H 03/22/17 05:35: Hemoglobin A1c 10.4 H 03/22/17 07:17: POC Glucose 153 H Current Medications Acetaminophen (Tylenol) 650 mg PO Q6H PRN PRN PRN Reason: Mild Pain (scale 0-3)/T>100.7 Last Admin: 03/20/17 13:56 Dose: 650 mg Hydrocodone Bitart/Acetaminophen ([place] 5mg-325mg) 1 - 2 tablet PO Q6H PRN PRN PRN Reason: Moderate-severe pain Duloxetine HCl (Cymbalta) 60 mg PO DAILY [facility] Last Admin: 03/21/17 10:19 Dose: 60 mg Heparin Sodium (Porcine) () 5,000 units SC BID [facility] Last Admin: 03/21/17 21:05 Dose: 5,000 units Hydralazine HCl (Apresoline) 10 mg IV Q4H PRN PRN PRN Reason: SBP > 160 Sodium Chloride () 1,000 mls @ 125 mls/hr IV .Q8H [facility] Last Admin: 03/22/17 02:23 Dose: 125 mls/hr Ceftriaxone Sodium (Rocephin) 1 gm in 50 mls @ 100 mls/hr IV Q24 [facility] Last Admin: 03/21/17 09:59 Dose: 100 mls/hr Insulin Aspart (Novolog Flexpen (Bkc)) 15 units SC TIDAC [facility] Last Admin: 03/22/17 07:45 Dose: Not Given Insulin Detemir (Levemir (Bkc)) 40 units SC QHS [facility] Last Admin: 03/22/17 00:31 Dose: 20 units Magnesium Hydroxide (Milk Of Magnesia) 30 ml PO DAILY PRN PRN PRN Reason: Constipation Morphine Sulfate (Morphine) 1 - 2 mg IV Q4H PRN PRN PRN Reason: PAIN Last Admin: 03/22/17 05:17 Dose: 2 mg Nutritional Formula (Lactose Free) (Glucerna Shake) 120 ml PO 4X/DAY [facility] Last Admin: 03/21/17 21:04 Dose: Not Given Ondansetron HCl (Zofran) 4 mg IV Q6H PRN PRN PRN Reason: Nausea Last Admin: 03/22/17 05:17 Dose: 4 mg Promethazine HCl (Phenergan (Ll)) 6.25 mg IV Q4H PRN PRN PRN Reason: NAUSEA/VOMITING Last Admin: 03/21/17 21:28 Dose: 6.25 mg Sodium Bicarbonate (Sodium Bicarbonate) 325 mg PO 4X/DAY [facility] Last Admin: 03/21/17 21:04 Dose: Not Given Sodium Chloride () 5 - 30 ml IV UD PRN PRN Reason: SALINE FLUSH Last Admin: 03/21/17 17:30 Dose: 10 ml Vancomycin HCl () 1 lab MISCELL. DAILY@0600 [facility] Last Admin: 03/22/17 05:25 Dose: 1 lab Vancomycin HCl (Vancomycin Renal/Hd Dosing) 1 unit MISCELL. DAILY@0800 [facility] Last Admin: 03/22/17 08:01 Dose: Not Given Assessment/Plan Active and Suspected Problems Metabolic acidosis (Acute) Iron deficiency anemia (Acute) Sepsis (Acute) UTI (urinary tract infection) (Acute) FRANSICO (acute kidney injury) (Acute) Patient is a 41-year-old lady recently discharged from the hospital following admission with obstructive uropathy attributed to renal calculi readmitted this a.m. with intractable nausea and vomiting. Patient was found to have acute cystitis on admission with worsening kidney function. 1. Sepsis secondary to acute cystitis: Patient started on broad-spectrum antibiotic therapy per protocol in addition to IV fluids. Admitted to regular nursing floor after cultures have been sent patient blood cultures positive for gram-positive cocci in clusters final identification and sensitivities pending. 2. Obstructive uropathy; again studies obtained on admission demonstrated Moderate bilateral hydroureteronephrosis which is unchanged, with associated distal migration of a 6-year-old calculus which is now seen at the left ureterovesicular junction. Also found to have Moderate fluid distention of the urinary bladder suggesting urinary outlet obstruction. Call placed to urology patient seen by Dr. Martinez; notes and recommendations reviewed scheduled to undergo cystoscopy and ureteroscopy and possible extraction on 3. Acute kidney injury secondary to obstructive uropathy consult was placed to nephrology seen by Dr. Odonnell recommended to retain her Ross catheter instead of intermittent self-catheterization edwards monitoring her kidney function. No significant change in patient's kidney function since admission 4. Diabetes mellitus type 2 controlled with hemoglobin A1c of 15 during patient previous admission. Patient was started on long acting insulin in addition to Accu-Cheks before meals and at bedtime with sliding scale coverage 5. CAD with remote stent placement 6. Depression patient is on Cymbalta 7. Anemia secondary to chronic blood loss from patient previous hematuria monitoring H&H with plans to transfuse if patient becomes symptomatic or hemoglobin falls below 7 8. Chronic back pain on tramadol 9. DVT prophylaxis with subcu heparin 10. Morbid obesity with BMI of 42.2 lifestyle modification including weight loss advised Code Visit Inpatient E&M: 43233 Subs Hosp L2
[2017-03-22 08:58] LABS: PTHIN 91.7 pg/mL (18.4-80.1)
[2017-03-22 09:14] LABS: Vancomycin, Random Level 23.5 ug/mL (0.0-15.0)
[2017-03-22] MEDS: Ceftriaxone 1 GM/50 ML BAG IV (09:20)
[2017-03-22] MEDS: LORazepam 2 MG/ML Syringe 1 MG IV (09:20)
[2017-03-22 09:46] LABS: Vitamin D,25 Hydroxy 10.5 ng/mL
[2017-03-22 11:06] LABS: Bedside Glucose 146 mg/dL (70-110)
--- NOTE | 2017-03-22 12:49 | PCM.OPRPT ---
Problem List (1) Acute kidney injury Status: Acute (2) Bilateral hydronephrosis Status: Acute (3) Ureteral calculi Status: Acute Report of Operation Date of Procedure: 03/22/17 Pre-Operative Diagnosis: Bilateral hydronephrosis, acute kidney injury and renal insufficiency, and left ureteral calculi. Post-Operative Diagnosis: Same Surgery/Procedure Performed:: Cystoscopy and placement of a left stent, right retrograde pyelogram and right stent placement. Description of Surgical Findings:: 41-year-old female who presented to the hospital with bilateral hydronephrosis CAT scan was done that demonstrated a stone in the distal left ureter she did have right hydronephrosis again. She has acute renal insufficiency with an elevated creatinine also had an elevated white blood count. She has been clinically stable but because the white blood count elevated and hydronephrosis were can take her surgery today for possible extraction of the stone and stent placement. Patient was prepped and draped in usual sterile fashion the urethra was prepped and draped in usual sterile fashion went into the bladder through the urethra and in at first found inside the bladder was chronic cystitis throughout the bladder fairly large bladder and floppy looking. I then identified the left ureteral orifice past the Glidewire into the left ureteral orifice with a Pollack catheter and immediately had a return of pus and foul looking urine from the left side immediately decided to place a stent and not attempt any sort of ureteroscopy because of the infected urine. I advanced the stent over the wire and positioned stent properly and it coiled in the kidney and bladder appropriately and after this was draining whitish foul looking urine from the left side. Because of this I then proceeded to the right side and she did have hydronephrosis in the right side cannulated the right ureteral orifice did a retrograde pyelogram no clear stone was seen but given her hydronephrosis in the right side and renal insufficiency decided to place a stent on this side to see if we can help her kidney function. Retrograde pyelograms done no stone seen but she did have hydronephrosis probably refluxing hydronephrosis but stent was placed to help drain the right kidney. One stent was placed in the right side and the left side there was pus draining from the bladder. I then put a catheter in the bladder to decompress everything she will need to go home with a catheter and continue with antibiotic treatment. Probably will need to set her up in a few weeks for surgery to do bilateral ureteroscopy inspect both ureters make sure there is no stones blocking both sides. For now we will continue her in the hospital watch her kidney function after placement of bilateral stents and also suspected stone. Type of Anesthesia:: General Drains: b/l stents - Admit VTE Documentation VTE Present on Admission: No VTE Mechan Device Prophylaxis: SCD's VTE Pharm Prophylaxis ordered?: No Reason prophylaxis not ordered:: Treatment Not Indicated
[2017-03-22 13:26] LABS: Bedside Glucose 172 mg/dL (70-110)
[2017-03-22 16:46] LABS: Bedside Glucose 168 mg/dL (70-110)
[2017-03-22] MEDS: Glucerna Shake 120 ML LIQUID PO (18:00)
[2017-03-22] MEDS: Sodium Bicarbonate 650 MG Tablet 325 MG PO ×2 (18:09→21:17)
--- NOTE | 2017-03-22 20:08 | NURSING ---
Patient unwilling to walk/get out of bed. following education was agreeable to short walk. Ambulated about 15 feet total. Agreeable to sitting in chair for a time. Encouraged fluid intake. Will offer another walk before getting into bed.
[2017-03-22] MEDS: 0.9% NaCl Peripheral Flush Adult/Peds IV (21:17)
[2017-03-22] MEDS: Heparin Injection 5,000 UNITS/ML Syringe 5000 UNITS SC (21:17)
[2017-03-22 21:31] LABS: Bedside Glucose 110 mg/dL (70-110)
[2017-03-23] MEDS: 0.9% Normal Saline 1,000 ML 125 ML IV ×2 (00:03→08:17)
[2017-03-23 02:14] VITALS: BP 150/94; PULSE 113; RESP 18; TEMP 36.8; O2SAT 100
[2017-03-23] MEDS: 0.9% NaCl Peripheral Flush Adult/Peds IV ×3 (03:00→23:35)
[2017-03-23 06:42] LABS: Anion Gap 11 (5-15); BUN 45 mg/dL (7-18); Chloride 116 mmol/L (98-107); EST Glomerular Filtration Rate 11 mL/min (>60); Est Glom Filt Rate - Afr Amer 14 mL/min (>60); Estimated Creatinine Clearance 13.01 ml/min; Glucose 80 mg/dL (70-110); Potassium 4.6 mmol/L (3.5-5.1); Sodium Level 142 mmol/L (136-145)
[2017-03-23 08:09] VITALS: BP 143/78; PULSE 117; RESP 18; TEMP 36.8; O2SAT 94
[2017-03-23] MEDS: Ceftriaxone 1 GM/50 ML BAG IV (08:19)
[2017-03-23] MEDS: Heparin Injection 5,000 UNITS/ML Syringe 5000 UNITS SC ×2 (08:20→22:11)
[2017-03-23] MEDS: Sodium Bicarbonate 650 MG Tablet 325 MG PO ×4 (08:20→22:14)
[2017-03-23] MEDS: DULoxetine Hcl 60 MG Capsule PO (08:20)
[2017-03-23] MEDS: Glucerna Shake 120 ML LIQUID PO (08:23)
--- NOTE | 2017-03-23 08:37 | PCM.PROGNOTE ---
Patient Problems: Active and Suspected Problems Bilateral hydronephrosis (Acute) Ureteral calculi (Acute) Metabolic acidosis (Acute) Iron deficiency anemia (Acute) Sepsis (Acute) UTI (urinary tract infection) (Acute) FRANSICO (acute kidney injury) (Acute) Subjective: s/p b/l stents for Acute kidney injury and stone blocking her kidneys. and b/l hydronephrosis. - Physical Exam General: Alert, Oriented x3, Cooperative HEENT: Atraumatic, PERRLA, EOMI, Normocephalic Neck: Supple, No JVD, Negative Carotid Bruits Lungs: Clear to auscultation, Normal air movement Cardiovascular: Regular rate, No murmurs Abdomen: Bowel Sounds Present, Soft, Non Tender Extremities: No edema, Capillary Refill Less than 3 Seconds Skin: No rashes, No breakdown Musculoskeletal: No Tenderness to Palpation of Joints or Extremities Neurological: Cranial nerves II-XII grossly intact Psych/Mental Status: Normal Affect, Appropriate Vital Signs Temp Pulse Resp BP Pulse Ox 98.3 F 117 H 18 143/78 H 94 03/23/17 08:09 03/23/17 08:09 03/23/17 08:09 03/23/17 08:09 03/23/17 08:09 Oxygen Flow Rate 6 Oxygen Delivery Method Room Air Weight: 104.7 kg Body Mass Index (BMI) 42.2 Finger Stick Blood Glucose 172 Intake and Output for Last 24 Hours 03/21/17 03/22/17 03/23/17 23:59 23:59 23:59 Intake Total 1850 / 1850 4180 / 4180 2014 Output Total 1300 / 1300 1735 / 1735 1100 / 1100 Balance 550 / 550 2445 / 2445 915 / 915 Laboratory Tests Past 24 Hrs 03/21/17 03/21/17 03/22/17 04:25 04:25 08:25 Sodium Potassium Chloride Carbon Dioxide Anion Gap BUN Creatinine Estim Creat Clear Calc Est GFR (MDRD) Af Amer Est GFR (MDRD) Non-Af BUN/Creatinine Ratio Glucose Calcium Vitamin D 25-Hydroxy 10.5 PTH Intact 91.7 H Random Vancomycin 23.5 H 03/23/17 06:00 Sodium 142 Potassium 4.6 Chloride 116 H Carbon Dioxide 15.0 L Anion Gap 11 BUN 45 H Creatinine 4.50 H Estim Creat Clear Calc 13.01 Est GFR (MDRD) Af Amer 14 L Est GFR (MDRD) Non-Af 11 L BUN/Creatinine Ratio 10.0 Glucose 80 Calcium 8.0 L Vitamin D 25-Hydroxy PTH Intact Random Vancomycin POC Glucose 03/22/17 03/22/17 03/22/17 21:22 16:36 13:18 POC Glucose 110 168 H 172 H 03/22/17 10:59 POC Glucose 146 H Assessment/Plan Active and Suspected Problems Bilateral hydronephrosis (Acute) Ureteral calculi (Acute) Metabolic acidosis (Acute) Iron deficiency anemia (Acute) Sepsis (Acute) UTI (urinary tract infection) (Acute) FRANSICO (acute kidney injury) (Acute) on discharge home with schmidt has stents my office will call to set up follow up surgery for kidney stones.
--- NOTE | 2017-03-23 08:44 | PCM.PN.HOSP ---
Patient Problems: Active and Suspected Problems Bilateral hydronephrosis (Acute) Ureteral calculi (Acute) Metabolic acidosis (Acute) Iron deficiency anemia (Acute) Sepsis (Acute) UTI (urinary tract infection) (Acute) FRANSICO (acute kidney injury) (Acute) Subjective: Patient underwent Cystoscopy and placement of a left stent, right retrograde pyelogram and right stent placement on 03/22/2017. Intraoperative findings included past draining from the left ureter. Repeat cultures were sent results pending. No significant change in kidney function. I then identified the left ureteral orifice past the Glidewire into the left ureteral orifice with a Pollack catheter and immediately had a return of pus and foul looking urine from the left side immediately decided to place a stent and not attempt any sort of ureteroscopy because of the infected urine. I advanced the stent over the wire and positioned stent properly and it coiled in the kidney and bladder appropriately and after this was draining whitish foul looking urine from the left side. Because of this I then proceeded to the right side and she did have hydronephrosis in the right side cannulated the right ureteral orifice did a retrograde pyelogram no clear stone was seen but given her hydronephrosis in the right side and renal insufficiency decided to place a stent on this side to see if we can help her kidney function. Objective: GENERAL: Appears ill looking HEENT: Clear conjunctiva, NECK; supple, normal thyroid, CHEST: Clear to auscultation bilaterally, HEART: Regular S1 S2, no audible murmurs ABDOMEN: soft, non-tender, normoactive bowel sounds, RECTAL: deferred EXTREMITIES: No edema, no clubbing, no cyanosis. PRINCIPAL DATABASE DEVELOPER: Awake, no lateralizing signs. Vitals/I&O's: Vital Signs Temp Pulse Resp BP Pulse Ox 98.3 F 117 H 18 143/78 H 94 03/23/17 08:09 03/23/17 08:09 03/23/17 08:09 03/23/17 08:09 03/23/17 08:09 Oxygen Flow Rate 6 Oxygen Delivery Method Room Air Weight: 104.7 kg Body Mass Index (BMI) 42.2 Finger Stick Blood Glucose 172 Intake and Output for Last 24 Hours 03/21/17 03/22/17 03/23/17 23:59 23:59 23:59 Intake Total 1850 / 1850 4180 / 4180 2014 Output Total 1300 / 1300 1735 / 1735 1100 / 1100 Balance 550 / 550 2445 / 2445 915 / 915 Laboratory Results 03/21/17 04:25: Vitamin D 25-Hydroxy 10.5 03/21/17 04:25: PTH Intact 91.7 H 03/22/17 08:25: Random Vancomycin 23.5 H 03/22/17 10:59: POC Glucose 146 H 03/22/17 13:18: POC Glucose 172 H 03/22/17 16:36: POC Glucose 168 H 03/22/17 21:22: POC Glucose 110 03/23/17 06:00: Sodium 142, Potassium 4.6, Chloride 116 H, Carbon Dioxide 15.0 L, Anion Gap 11, BUN 45 H, Creatinine 4.50 H, Estim Creat Clear Calc 13.01, Est GFR (MDRD) Af Amer 14 L, Est GFR (MDRD) Non-Af 11 L, BUN/Creatinine Ratio 10.0, Glucose 80, Calcium 8.0 L Current Medications Acetaminophen (Tylenol) 650 mg PO Q6H PRN PRN PRN Reason: Mild Pain (scale 0-3)/T>100.7 Last Admin: 03/20/17 13:56 Dose: 650 mg Hydrocodone Bitart/Acetaminophen ([place] 5mg-325mg) 1 - 2 tablet PO Q6H PRN PRN PRN Reason: Moderate-severe pain Duloxetine HCl (Cymbalta) 60 mg PO DAILY [facility] Last Admin: 03/23/17 08:20 Dose: 60 mg Heparin Sodium (Porcine) () 5,000 units SC BID [facility] Last Admin: 03/23/17 08:20 Dose: 5,000 units Hydralazine HCl (Apresoline) 10 mg IV Q4H PRN PRN PRN Reason: SBP > 160 Ceftriaxone Sodium (Rocephin) 1 gm in 50 mls @ 100 mls/hr IV Q24 [facility] Last Admin: 03/23/17 08:19 Dose: 100 mls/hr Sodium Bicarbonate 100 meq/ (Dextrose) 1,100 mls @ 75 mls/hr IV .[id number] [facility] Insulin Aspart (Novolog Flexpen (Bk)) 15 units SC TIDAC [facility] Last Admin: 03/23/17 08:09 Dose: Not Given Insulin Detemir (Levemir (Bk)) 40 units SC QHS [facility] Last Admin: 03/22/17 21:23 Dose: 40 units Magnesium Hydroxide (Milk Of Magnesia) 30 ml PO DAILY PRN PRN PRN Reason: Constipation Morphine Sulfate (Morphine) 1 - 2 mg IV Q4H PRN PRN PRN Reason: PAIN Last Admin: 03/22/17 05:17 Dose: 2 mg Nutritional Formula (Lactose Free) (Glucerna Shake) 120 ml PO 4X/DAY [facility] Last Admin: 03/23/17 08:23 Dose: 120 mls Ondansetron HCl (Zofran) 4 mg IV Q6H PRN PRN PRN Reason: Nausea Last Admin: 03/22/17 21:16 Dose: 4 mg Promethazine HCl (Phenergan (Ll)) 6.25 mg IV Q4H PRN PRN PRN Reason: NAUSEA/VOMITING Last Admin: 03/23/17 03:00 Dose: 6.25 mg Sodium Bicarbonate (Sodium Bicarbonate) 325 mg PO 4X/DAY [facility] Last Admin: 03/23/17 08:20 Dose: 325 mg Sodium Chloride () 5 - 30 ml IV UD PRN PRN Reason: SALINE FLUSH Last Admin: 03/23/17 03:00 Dose: 10 ml Vancomycin HCl () 1 lab MISCELL. DAILY@0600 [facility] Last Admin: 03/23/17 06:23 Dose: 1 lab Vancomycin HCl (Vancomycin Renal/Hd Dosing) 1 unit MISCELL. DAILY@0800 [facility] Last Admin: 03/22/17 08:01 Dose: Not Given Assessment/Plan Active and Suspected Problems Bilateral hydronephrosis (Acute) Ureteral calculi (Acute) Metabolic acidosis (Acute) Iron deficiency anemia (Acute) Sepsis (Acute) UTI (urinary tract infection) (Acute) FRANSICO (acute kidney injury) (Acute) Patient is a 41-year-old lady recently discharged from the hospital following admission with obstructive uropathy attributed to renal calculi readmitted this a.m. with intractable nausea and vomiting. Patient was found to have acute cystitis on admission with worsening kidney function. 1. Sepsis secondary to acute cystitis: Patient started on broad-spectrum antibiotic therapy per protocol in addition to IV fluids. Admitted to regular nursing floor after cultures have been sent patient blood cultures positive for gram-positive cocci in clusters final identification and sensitivities pending. Repeat culture sent off the patient's procedure on 03/22/2017 2. Obstructive uropathy; again studies obtained on admission demonstrated Moderate bilateral hydroureteronephrosis which is unchanged, with associated distal migration of a 6-year-old calculus which is now seen at the left ureterovesicular junction. Also found to have Moderate fluid distention of the urinary bladder suggesting urinary outlet obstruction. Call placed to urology patient seen by Dr. Martinez; Patient underwent Cystoscopy and placement of a left stent, right retrograde pyelogram and right stent placement on 03/22/2017. Intraoperative findings included past draining from the left ureter. Repeat cultures were sent results pending. No significant change in kidney function. 3. Acute kidney injury secondary to obstructive uropathy consult was placed to nephrology seen by Dr. Odonnell recommended to retain her Ross catheter instead of intermittent self-catheterization edwards monitoring her kidney function. No significant change in patient's kidney function since admission 4. Diabetes mellitus type 2 controlled with hemoglobin A1c of 15 during patient previous admission. Patient was started on long acting insulin in addition to Accu-Cheks before meals and at bedtime with sliding scale coverage 5. CAD with remote stent placement 6. Depression patient is on Cymbalta 7. Anemia secondary to chronic blood loss from patient previous hematuria monitoring H&H with plans to transfuse if patient becomes symptomatic or hemoglobin falls below 7 8. Chronic back pain on tramadol 9. DVT prophylaxis with subcu heparin 10. Morbid obesity with BMI of 42.2 lifestyle modification including weight loss advised Code Visit Inpatient E&M: 20677 Subs Hosp L2
[2017-03-23] MEDS: Ondansetron 4 MG/2 ML Vial IV ×2 (09:43→22:23)
[2017-03-23 10:11] LABS: Bedside Glucose 71 mg/dL (70-110)
--- NOTE | 2017-03-23 11:50 | PCM.PN.REN ---
Patient Problems: Active and Suspected Problems Bilateral hydronephrosis (Acute) Ureteral calculi (Acute) Metabolic acidosis (Acute) Iron deficiency anemia (Acute) Sepsis (Acute) UTI (urinary tract infection) (Acute) FRANSICO (acute kidney injury) (Acute) Subjective: Remains nauseated with poor oral intake. Has been using protein supplements. Underwent bilateral ureteral stents today. Creatinine slightly improved to 4.5 today. Patient father at bedside. Had 40min discussion in regards to her kidney function and the complications of her poorly controlled diabetes. Emphasized importance of after cleansing sugar control and straight cathing her bladder once discharge to home. - Physical Exam General: Alert, Oriented x3, Cooperative, No apparent distress Oral: Dry Mucosa Lungs: Clear to auscultation Cardiovascular: Regular rate, No rub noted Abdomen: Bowel Sounds Present, Soft, Non Tender, Non-Distended, Obese Extremities: No edema Psych/Mental Status: Normal Affect, Appropriate, Alert and oriented to time, place, person, mood and affect Vital Signs Temp Pulse Resp BP Pulse Ox 98.3 F 117 H 18 143/78 H 94 03/23/17 08:09 03/23/17 08:09 03/23/17 08:09 03/23/17 08:09 03/23/17 08:09 Oxygen Flow Rate 6 Oxygen Delivery Method Room Air Weight: 104.7 kg Body Mass Index (BMI) 42.2 Finger Stick Blood Glucose 172 Intake and Output for Last 24 Hours 03/21/17 03/22/17 03/23/17 23:59 23:59 23:59 Intake Total 1850 / 1850 4180 / 4180 2014 Output Total 1300 / 1300 1735 / 1735 1100 / 1100 Balance 550 / 550 2445 / 2445 915 / 915 Laboratory Tests Past 24 Hrs 03/23/17 03/23/17 06:00 11:25 Sodium 142 Potassium 4.6 Chloride 116 H Carbon Dioxide 15.0 L Anion Gap 11 BUN 45 H Creatinine 4.50 H Estim Creat Clear Calc 13.01 Est GFR (MDRD) Af Amer 14 L Est GFR (MDRD) Non-Af 11 L BUN/Creatinine Ratio 10.0 Glucose 80 Calcium 8.0 L Random Vancomycin Pending POC Glucose 03/23/17 03/22/17 03/22/17 08:05 21:22 16:36 POC Glucose 71 110 168 H 03/22/17 13:18 POC Glucose 172 H Assessment/Plan Active and Suspected Problems Bilateral hydronephrosis (Acute) Ureteral calculi (Acute) Metabolic acidosis (Acute) Iron deficiency anemia (Acute) Sepsis (Acute) UTI (urinary tract infection) (Acute) FRANSICO (acute kidney injury) (Acute) 1. FRANSICO due to urinary retention, Bilateral hydronephrosis. Underwent bilateral ureteral ureteral stents yesterday. We will continue to monitor renal function. No urgency to initiate dialysis. 40 minute discussion with patient and father at bedside regarding dialysis, diabetic control, kidney failure, and weight loss. 2. Obstructive uropathy from urinary retention, diabetic neurogenic bladder, hydronephrosis. History of poorly controlled blood sugars 3. Non-obstructive kidney stones urology following 4. Diabetes mellitus type 2 with noncompliance with sugar control. Last hemoglobin A1c was 15 on March 08. 5. Iron deficiency anemia IV iron therapy. 6. Hyperkalemia resolved follow low potassium diet. 7. Metabolic acidosis from renal failure. Continue bicarbonate 8. Coronary artery disease status post cardiac stent in 2007 9. morbid obesity discussed weight loss. 12 UTI with pyuria. Hold on redocing Vancomycin until level less than 15.
[2017-03-23 12:10] LABS: Vancomycin, Random Level 18.3 ug/mL (0.0-15.0)
[2017-03-23 12:31] LABS: Bedside Glucose 112 mg/dL (70-110)
[2017-03-23 13:23] LABS: Protein, Urine (Random) 333.7 mg/dL (<11.9)
[2017-03-23 14:34] VITALS: BP 161/111; PULSE 119; RESP 18; TEMP 36.4; O2SAT 100
--- NOTE | 2017-03-23 14:40 | NURSING ---
Pt educated on importance of eating and drinking, continues not eat or drink. Is very unmotivated asked to walk in halls pt upset and does not want to walk. ambulated 30 feet and 60 feet and did agree to sit in chair. Pt having persistent nausea medicated with Zofran and Phenergan will little relief, small bile like emesis. Urine remains bright red and blood pressure elevated at this time. Hydralazine given and MD notifed of condition
[2017-03-23 14:48] VITALS: PULSE 119
[2017-03-23 16:57] VITALS: BP 161/109; PULSE 121
[2017-03-23 21:15] LABS: Bedside Glucose 188 mg/dL (70-110)
[2017-03-23 22:06] VITALS: BP 157/102; PULSE 116; RESP 20; TEMP 36.9; O2SAT 99
[2017-03-23 23:00] LABS: Bedside Glucose 117 mg/dL (70-110)
[2017-03-24 00:25] VITALS: PULSE 92
[2017-03-24] MEDS: 0.9% NaCl Peripheral Flush Adult/Peds IV ×3 (00:25→22:22)
[2017-03-24 04:00] VITALS: BP 143/84; PULSE 109; RESP 18; TEMP 36.7; O2SAT 100
[2017-03-24 09:18] LABS: Bedside Glucose 57 mg/dL (70-110)
[2017-03-24 09:18] LABS: Bedside Glucose 71 mg/dL (70-110)
[2017-03-24] MEDS: Ceftriaxone 1 GM/50 ML BAG IV (09:22)
[2017-03-24] MEDS: Sodium Bicarbonate 650 MG Tablet 325 MG PO ×4 (09:22→22:17)
[2017-03-24] MEDS: Heparin Injection 5,000 UNITS/ML Syringe 5000 UNITS SC ×2 (09:23→22:16)
[2017-03-24] MEDS: DULoxetine Hcl 60 MG Capsule PO (09:26)
[2017-03-24 09:35] VITALS: BP 161/96; PULSE 109; RESP 16; TEMP 35.7; O2SAT 99
--- NOTE | 2017-03-24 09:36 | PN_ITS ---
Patient Problems: Active and Suspected Problems Bilateral hydronephrosis (Acute) Ureteral calculi (Acute) Sepsis (Acute) UTI (urinary tract infection) (Acute) FRANSICO (acute kidney injury) (Acute) Subjective: Since urine cultures finally came back positive for yeast subsequently started on fluconazole: Admit to some improvement in her overall condition, she however complains of intractable nausea and epigastric discomfort Objective: GENERAL: Appears ill looking HEENT: Clear conjunctiva, NECK; supple, normal thyroid, CHEST: Clear to auscultation bilaterally, HEART: Regular S1 S2, no audible murmurs ABDOMEN: soft, non-tender, normoactive bowel sounds, RECTAL: deferred EXTREMITIES: No edema, no clubbing, no cyanosis. CLINICAL DATA ASSISTANT: Awake, no lateralizing signs. Vitals/I&O's: Vital Signs Temp Pulse Resp BP Pulse Ox 98.1 F 109 H 18 143/84 H 100 03/24/17 04:00 03/24/17 04:00 03/24/17 04:00 03/24/17 04:00 03/24/17 04:00 Oxygen Flow Rate 6 Oxygen Delivery Method Room Air Weight: 104.7 kg Body Mass Index (BMI) 42.2 Finger Stick Blood Glucose 172 Intake and Output for Last 24 Hours 03/22/17 03/23/17 03/24/17 23:59 23:59 23:59 Intake Total 4180 / 4180 3250 / 3250 1122 / 1122 Output Total 1735 / 1735 1850 / 1850 500 / 500 Balance 2445 / 2445 1400 / 1400 622 / 622 Microbiology Past 72 Hours 03/22/17 Unknown Urine Catheter - Catheter Urine Culture - Preliminary Yeast Laboratory Results 03/23/17 08:05: POC Glucose 71 03/23/17 11:25: Random Vancomycin 18.3 H 03/23/17 11:44: POC Glucose 112 H 03/23/17 12:25: Urine Creatinine 65.40 03/23/17 12:25: U Random Total Protein 333.7 H 03/23/17 16:49: POC Glucose 188 H 03/23/17 22:02: POC Glucose 117 H 03/24/17 06:48: POC Glucose 57 L 03/24/17 07:24: POC Glucose 71 Current Medications Acetaminophen (Tylenol) 650 mg PO Q6H PRN PRN PRN Reason: Mild Pain (scale 0-3)/T>100.7 Last Admin: 03/20/17 13:56 Dose: 650 mg Hydrocodone Bitart/Acetaminophen ([place] 5mg-325mg) 1 - 2 tablet PO Q6H PRN PRN PRN Reason: Moderate-severe pain Duloxetine HCl (Cymbalta) 60 mg PO DAILY [facility] Last Admin: 03/24/17 09:26 Dose: 60 mg Heparin Sodium (Porcine) () 5,000 units SC BID [facility] Last Admin: 03/24/17 09:23 Dose: 5,000 units Hydralazine HCl (Apresoline) 10 mg IV Q4H PRN PRN PRN Reason: SBP > 150 or DBP > 100 Last Admin: 03/24/17 00:25 Dose: 10 mg Ceftriaxone Sodium (Rocephin) 1 gm in 50 mls @ 100 mls/hr IV Q24 [facility] Last Admin: 03/24/17 09:22 Dose: 100 mls/hr Sodium Bicarbonate 100 meq/ (Dextrose) 1,100 mls @ 75 mls/hr IV .[id number] [facility] Last Admin: 03/24/17 00:25 Dose: 75 mls/hr Fluconazole (Diflucan) 200 mg in 100 mls @ 100 mls/hr IV Q48 [facility] Last Admin: 03/23/17 12:52 Dose: 100 mls/hr Insulin Aspart (Novolog Flexpen (Bkc)) 15 units SC TIDAC [facility] Last Admin: 03/24/17 09:24 Dose: Not Given Insulin Detemir (Levemir (Bkc)) 40 units SC QHS [facility] Last Admin: 03/23/17 22:12 Dose: 20 units Magnesium Hydroxide (Milk Of Magnesia) 30 ml PO DAILY PRN PRN PRN Reason: Constipation Morphine Sulfate (Morphine) 1 - 2 mg IV Q4H PRN PRN PRN Reason: PAIN Last Admin: 03/23/17 23:34 Dose: 2 mg Nutritional Formula (Lactose Free) (Glucerna Shake) 120 ml PO 4X/DAY [facility] Last Admin: 03/24/17 09:27 Dose: Not Given Ondansetron HCl (Zofran) 4 mg IV Q6H PRN PRN PRN Reason: Nausea Last Admin: 03/23/17 22:23 Dose: 4 mg Promethazine HCl (Phenergan (Ll)) 6.25 mg IV Q4H PRN PRN PRN Reason: NAUSEA/VOMITING Last Admin: 03/23/17 23:35 Dose: 6.25 mg Sodium Bicarbonate (Sodium Bicarbonate) 325 mg PO 4X/DAY [facility] Last Admin: 03/24/17 09:23 Dose: 325 mg Sodium Chloride () 5 - 30 ml IV UD PRN PRN Reason: SALINE FLUSH Last Admin: 03/24/17 00:25 Dose: 10 ml Vancomycin HCl () 1 lab MISCELL. DAILY@0600 [facility] Last Admin: 03/24/17 09:25 Dose: 1 lab Vancomycin HCl (Vancomycin Renal/Hd Dosing) 1 unit MISCELL. DAILY@0800 [facility] Last Admin: 03/24/17 09:26 Dose: Not Given Assessment/Plan Active and Suspected Problems Bilateral hydronephrosis (Acute) Ureteral calculi (Acute) Sepsis (Acute) UTI (urinary tract infection) (Acute) FRANSICO (acute kidney injury) (Acute) Patient is a 41-year-old lady recently discharged from the hospital following admission with obstructive uropathy attributed to renal calculi readmitted this a.m. with intractable nausea and vomiting. Patient was found to have acute cystitis on admission with worsening kidney function. Urine cultures came back positive for yeast for which patient was started on fluconazole 1. Sepsis secondary to acute cystitis: Patient started on broad-spectrum antibiotic therapy per protocol in addition to IV fluids. Admitted to regular nursing floor after cultures have been sent patient blood cultures positive for staph epi thought to be contaminant; urine cultures however were positive for yeast for which patient was treated with fluconazole 2. Obstructive uropathy; again studies obtained on admission demonstrated Moderate bilateral hydroureteronephrosis which is unchanged, with associated distal migration of a 6-year-old calculus which is now seen at the left ureterovesicular junction. Also found to have Moderate fluid distention of the urinary bladder suggesting urinary outlet obstruction. Call placed to urology patient seen by Dr. Martinez; Patient underwent Cystoscopy and placement of a left stent, right retrograde pyelogram and right stent placement on 2016. Intraoperative findings included past draining from the left ureter. Repeat cultures were positive for yeast subsequently started on fluconazole 3. Acute kidney injury secondary to obstructive uropathy consult was placed to nephrology seen by Dr. Odonnell recommended to retain her Ross catheter instead of intermittent self-catheterization edwards monitoring her kidney function. Slight improvement in kidney function 4. Diabetes mellitus type 2 controlled with hemoglobin A1c of 15 during patient previous admission. Patient was started on long acting insulin in addition to Accu-Cheks before meals and at bedtime with sliding scale coverage 5. CAD with remote stent placement 6. Depression patient is on Cymbalta 7. Anemia secondary to chronic blood loss from patient previous hematuria monitoring H&H with plans to transfuse if patient becomes symptomatic or hemoglobin falls below 7 8. Chronic back pain on tramadol 9. DVT prophylaxis with subcu heparin 10. Morbid obesity with BMI of 42.2 lifestyle modification including weight loss advised 11. Physical deconditioning requested for PT and OT eval 12. Abdominal discomfort associated with intractable nausea vomiting do suspect component of diabetic gastroparesis subsequently requested for gastric emptying studies Code Visit Inpatient E&M: 70337 Subs Hosp L2
[2017-03-24 10:46] LABS: Bedside Glucose 101 mg/dL (70-110)
[2017-03-24 11:15] LABS: Albumin, Serum 1.7 g/dL (3.4-5.0); BUN 41 mg/dL (7-18); BUN/Creat Ratio 9.5 RATIO (10-20); Calcium,Total 8.2 mg/dL (8.5-10.1); Creatinine, Serum 4.31 mg/dL (0.55-1.02); EST Glomerular Filtration Rate 12 mL/min (>60); Est Glom Filt Rate - Afr Amer 15 mL/min (>60); Estimated Creatinine Clearance 13.59 ml/min; Glucose 57 mg/dL (70-110); Phosphorus 2.6 mg/dL (2.5-4.9); Sodium Level 141 mmol/L (136-145)
[2017-03-24 11:16] LABS: Chloride 111 mmol/L (98-107); Potassium 3.9 mmol/L (3.5-5.1)
[2017-03-24 11:34] LABS: Absolute Lymphocyte Count 1.14 X10^3/ul (0.83-4.51); Absolute Neutrophil Count 10.5 X10^3/uL (2.0-7.7); Basophil# 0.03 X10^3/uL; Basophil% 0.2 % (0-1); Eosinophil# 0.36 X10^3/uL; Eosinophils% 2.7 % (0-5); Hematocrit 20.9 % (37-47); Hemoglobin 7.2 g/dl (12.0-15.0); Lymphocyte # 1.14 X10^3/ul (4.0); Lymphocyte % 8.5 % (19-41); Mean Corp Hgb Conc 34.4 g/gl (32-36); Mean Corpuscular Hgb 25.6 pg (27.0-32.0); Mean Corpuscular Volume 74.4 fL (81-99); Mean Platelet Vol. 8.1 fl (6.2-12.0); Monocyte# 1.37 X10^3/uL; Monocyte% 10.2 % (0-10); Neutrophil # 10.46 X10^3/uL (2.7-7.7); Platelet Count 294 K/mm3 (150-450); RBC Distribution Width SD 42.9 fl (35.1-43.9); Red Blood Count 2.81 M/mm3 (4.2-5.4); White Blood Count 13.4 K/mm3 (4.4-11.0)
[2017-03-24 11:41] LABS: Bedside Glucose 122 mg/dL (70-110)
[2017-03-24 11:42] LABS: POSITIVE COUNT NO; POSITIVE DIFFERENTIAL NO; POSITIVE MORPHOLOGY NO
--- NOTE | 2017-03-24 11:46 | NURSING ---
Notified Chavo, pharmacist, of random Vancomycin level of 21.0. Per Chavo, patient will not get Vancomycin today.
--- NOTE | 2017-03-24 12:10 | PCM.PN.BLA ---
Progress Note 41-year-old female status post bilateral stents. Her creatinines come down slightly to 4.3. Agree with treating urine for infection. She had a stone in the left side possible stone on the right side bilateral hydro-. On discharge she is to call my office to get set up for surgery to go any laser of the stones. We will need to go home with a Ross catheter.
--- NOTE | 2017-03-24 12:53 | NURSING ---
Pt. c/o moderate nausea. No vomiting noted.
[2017-03-24] MEDS: Ondansetron 4 MG/2 ML Vial IV (12:55)
[2017-03-24] MEDS: Acetaminophen 325 MG Tablet 650 MG PO ×2 (12:55→18:48)
[2017-03-24 15:16] VITALS: BP 158/99; PULSE 110; RESP 16; TEMP 36.6; O2SAT 99
[2017-03-24 16:56] LABS: Bedside Glucose 139 mg/dL (70-110)
[2017-03-24 21:04] VITALS: BP 150/90; PULSE 110; RESP 18; TEMP 36.6; O2SAT 100
[2017-03-24 22:25] LABS: Bedside Glucose 126 mg/dL (70-110)
[2017-03-25] VITALS (9 sets, daily range): BP systolic 135–157; BP diastolic 84–111; PULSE 105–118; RESP 16–18; TEMP 36.6–37.2; O2SAT 99–100
--- NOTE | 2017-03-25 05:55 | NM_ITS ---
CLINICAL: 41-year-old female with reported history of abdominal pain. SEMI-SOLID PHASE 99m Tc SULFUR COLLOID GASTRIC EMPTYING STUDY COMPARISON: CT of the abdomen-pelvis report 03/19/2017 FINDINGS: The patient was administered 1.0 mCi of 99m Tc sulfur colloid mixed with oatmeal and consumed per os. Image acquisitions in the anterior-posterior projections for a total of 60 minutes. There is prompt visualization of the stomach. There is no gastroesophageal reflux identified. The T1/2 linear fit was calculated to be 43.80 minutes, (Normal: 12-56 minutes). NM/Gastric Emptying Study IMPRESSION: 1. NORMAL 99m Tc sulfur colloid semi-solid phase (oatmeal) gastric emptying imaging examination. A. There is normal and preserved semi-solid phase gastric emptying compared to normal controls. (Indu et al, J Nucl Med Tech 38: 186, 2010). Electronically Signed: Alhaji Parrish DO at 23:07 EST Tel , Service support ,
[2017-03-25 06:35] LABS: Absolute Lymphocyte Count 0.72 X10^3/ul (0.83-4.51); Absolute Neutrophil Count 7.5 X10^3/uL (2.0-7.7); Basophil# 0.03 X10^3/uL; Basophil% 0.3 % (0-1); Eosinophil# 0.31 X10^3/uL; Eosinophils% 3.2 % (0-5); Hematocrit 21.4 % (37-47); Hemoglobin 7.5 g/dl (12.0-15.0); Lymphocyte # 0.72 X10^3/ul (4.0); Lymphocyte % 7.4 % (19-41); Mean Platelet Vol. 8.1 fl (6.2-12.0); Monocyte# 0.98 X10^3/uL; Monocyte% 10.1 % (0-10); Neutrophil # 7.54 X10^3/uL (2.7-7.7); Platelet Count 323 K/mm3 (150-450); RBC Distribution Width CV 15.3 % (11.6-14.6); RBC Distribution Width SD 39.9 fl (35.1-43.9); Red Blood Count 2.89 M/mm3 (4.2-5.4); White Blood Count 9.7 K/mm3 (4.4-11.0)
[2017-03-25 06:39] LABS: Differential Indicated SCAN CRITERIA MET; POSITIVE COUNT NO; POSITIVE DIFFERENTIAL NO; POSITIVE MORPHOLOGY YES
[2017-03-25 06:51] LABS: Bedside Glucose 166 mg/dL (70-110)
[2017-03-25 06:55] LABS: Vancomycin, Random Level 17.4 ug/mL (0.0-15.0)
--- NOTE | 2017-03-25 09:08 | PCM.PROGNOTE ---
Patient Problems: Active and Suspected Problems Bilateral hydronephrosis (Acute) Ureteral calculi (Acute) Sepsis (Acute) UTI (urinary tract infection) (Acute) FRANSICO (acute kidney injury) (Acute) Subjective: Chief complaint: Follow-up after admission for acute cystitis with sepsis, obstructive uropathy complicated by acute renal failure, bacteremia and uncontrolled type 2 diabetes mellitus. Patient seen and examined. No acute events overnight. She denied any significant complaints. She has no more abdominal pain. Denied any more nausea vomiting. Remains on Ross catheter, urine still is dirty and dark brown. Denied fever or chills. Denied chest pain or shortness of breath. She is afebrile, slightly tachycardic, blood pressure on the higher side, pulse ox is 100% on room air. - Physical Exam General: Alert, Oriented x3, Cooperative, No apparent distress HEENT: Atraumatic, PERRLA, EOMI Oral: Moist Mucosa, No Gingival or Mucosal Lesions/ Ulcerations Neck: Supple, No JVD, Negative Carotid Bruits, Trachea Midline, Thyroid Normal Size and Texture Lungs: Clear to auscultation, Normal air movement, No rhonchi, No wheeze, No rales Cardiovascular: Regular rate, Regular Rhythm, Normal S1, Normal S2, PMI Normal, Tachycardic Abdomen: Bowel Sounds Present, Soft, Non Tender, Non-Distended, No Hepato-splenomegaly Extremities: No clubbing, No cyanosis, No edema Skin: No rashes, No breakdown Lymphatic: No Cervical, Supraclavicular, or Inguinal Adenopathy Neurological: Cranial nerves II-XII grossly intact, Motor Exam 5/5 strength throughout Psych/Mental Status: Normal Affect, Appropriate, Alert and oriented to time, place, person, mood and affect Vital Signs Temp Pulse Resp BP Pulse Ox 98.5 F 112 H 16 149/87 H 100 03/25/17 03:20 03/25/17 03:20 03/25/17 03:20 03/25/17 03:20 03/25/17 03:20 Oxygen Flow Rate 6 Oxygen Delivery Method Room Air Weight: 230 lb 13.184 oz Body Mass Index (BMI) 42.2 Finger Stick Blood Glucose 172 Intake and Output for Last 24 Hours 03/23/17 03/24/17 03/25/17 23:59 23:59 23:59 Intake Total 3250 / 3250 2700 / 2700 1184 / 1184 Output Total 1850 / 1850 1300 / 1300 800 / 800 Balance 1400 / 1400 1400 / 1400 384 / 384 Microbiology Past 72 Hours 03/22/17 Unknown Urine Culture - Preliminary Urine Catheter - Catheter Yeast Laboratory Tests Past 24 Hrs 03/24/17 03/24/17 03/24/17 05:25 06:25 06:25 WBC 13.4 H RBC 2.81 L Hgb 7.2 L Hct 20.9 L MCV 74.4 L MCH 25.6 L MCHC 34.4 RDW 16.0 H RDW Differential 42.9 Plt Count 294 MPV 8.1 Immature Gran % (Auto) 0.400 Neut % (Auto) 78.0 H Lymph % (Auto) 8.5 L [place] % (Auto) 10.2 H Eos % (Auto) 2.7 Baso % (Auto) 0.2 Absolute Neuts (auto) 10.5 H Absolute Lymphs (auto) 1.14 Total Counted Not Reportable Sodium 141 Potassium 3.9 Chloride 111 H Carbon Dioxide 18.0 L BUN 41 H Creatinine 4.31 H Estim Creat Clear Calc 13.59 Est GFR (MDRD) Af Amer 15 L Est GFR (MDRD) Non-Af 12 L BUN/Creatinine Ratio 9.5 L Glucose 57 L Calcium 8.2 L Phosphorus 2.6 Albumin 1.7 L Random Vancomycin 21.0 H 03/25/17 03/25/17 06:17 06:17 WBC 9.7 RBC 2.89 L Hgb 7.5 L Hct 21.4 L MCV 74.0 L MCH 26.0 L MCHC 35.0 RDW 15.3 H RDW Differential 39.9 Plt Count 323 MPV 8.1 Immature Gran % (Auto) 1.000 H Neut % (Auto) 78.0 H Lymph % (Auto) 7.4 L [place] % (Auto) 10.1 H Eos % (Auto) 3.2 Baso % (Auto) 0.3 Absolute Neuts (auto) 7.5 Absolute Lymphs (auto) 0.72 L Total Counted Not Reportable Sodium Potassium Chloride Carbon Dioxide BUN Creatinine Estim Creat Clear Calc Est GFR (MDRD) Af Amer Est GFR (MDRD) Non-Af BUN/Creatinine Ratio Glucose Calcium Phosphorus Albumin Random Vancomycin 17.4 H POC Glucose 1203/24/17 03/24/17 06:44 22:12 16:50 POC Glucose 166 H 126 H 139 H 03/24/17 03/24/17 03/24/17 11:28 09:07 07:24 POC Glucose 122 H 101 71 03/24/17 06:48 POC Glucose 57 L Clinical Impression(s) from Imaging Studies Abdomen/Pelvis CT 03/19/17 22:48 IMPRESSION: 1. Moderate bilateral hydroureteronephrosis which is unchanged, with associated distal migration of a 6-year-old calculus which is now seen at the left ureterovesicular junction. 2. Moderate fluid distention of the urinary bladder suggesting urinary outlet obstruction. 3. Nonobstructing 7 mm calculus in the left lower renal pelvis which is unchanged. Electronically Signed: Faustino Ramirez MD at 0:15 EST Tel , Service support , Chest X-Ray 03/20/17 02:26 IMPRESSION: 1. Appropriate positioning of central venous line. 2. No evidence of acute cardiopulmonary disease. Electronically Signed: Faustino Ramirez MD at 4:04 EST Tel , Service support , Assessment/Plan Active and Suspected Problems Bilateral hydronephrosis (Acute) Ureteral calculi (Acute) Sepsis (Acute) UTI (urinary tract infection) (Acute) FRANSICO (acute kidney injury) (Acute) This is a 41 years old female patient admitted because of nausea and vomiting, found to have acute cystitis with sepsis, acute renal failure due to bilateral obstructive uropathy, left renal calculus, bilateral hydronephrosis, acute on chronic anemia, bacteremia and uncontrolled type 2 diabetes mellitus. #1 acute cystitis/sepsis: She is on IV Rocephin, oral Diflucan and IV vancomycin. Urine culture revealed mixed growth as well as yeast, on oral Diflucan. She has been afebrile throughout admission, white blood cell count is back to normal. Still tachycardic. Plan: Continue same treatment. #2 acute renal failure: Secondary to bilateral obstructive uropathy as well as left renal calculus. She is on Ross catheter, urine is still dirty and brown in color, slightly improving. Her creatinine has been improving very slowly, today's creatinine is 4.13. Nephrology on the case. #3 bilateral obstructive uropathy/left renal calculus: Status post cystoscopy and placement of bilateral ureteral stents. Remained on Ross catheter as above. Urology is following. Kidney function is slowly improving. #4 Staphylococcus epidermidis bacteremia: She is on IV Rocephin and vancomycin. She remained afebrile, leukocytosis resolved. It is only in 1 bottle and could be a contaminant. Plan: Continue same treatment, repeat blood culture to ensure resolution. #5 acute on chronic anemia: Secondary to the blood loss due to renal calculus and hematuria. Her hemoglobin has been in the range of 7-9 g/dL since beginning of March,. Before that, it was normal. Today's hemoglobin 7.5 g/dL. Plan: Transfuse 1 unit of packed RBCs, repeat CBC tomorrow morning. #6 uncontrolled type 2 diabetes mellitus: On March 08, 2017, hemoglobin A1c was 15 and on March 22, 2017, hemoglobin A1c was 10.4. Initially, blood pressure was high up to 300s. She was started on Levemir as well as pre-meal insulin 15 units 3 times daily. Sugar has been low since then, was as low as 57 mg/dL. Patient reported poor appetite, nursing staff mentioned that his sugar has been low. Plan: Change Levemir to 12 units twice daily, DC pre-meal NovoLog, start insulin sliding scale. #7 CAD status post stents: Denies any complaints, stable. She is not on any cardiac medications. #8 chronic back pain: She is on IV morphine as needed. #9 depression: Continue Cymbalta. #10 DVT prophylaxis: Subcu heparin. This note was generated with [employer] dictation software. It may contain incorrect words, spelling, and punctuation that were not noted in checking the note before signing. Code Visit Inpatient E&M: 63077 Subs Hosp L2
--- NOTE | 2017-03-25 09:20 | PN_ITS ---
Patient Problems: Active and Suspected Problems Bilateral hydronephrosis (Acute) Ureteral calculi (Acute) Sepsis (Acute) UTI (urinary tract infection) (Acute) FRANSICO (acute kidney injury) (Acute) Subjective: Chief complaint: Follow-up after admission for acute cystitis with sepsis, obstructive uropathy complicated by acute renal failure, bacteremia and uncontrolled type 2 diabetes mellitus. Patient seen and examined. No acute events overnight. She denied any significant complaints. She has no more abdominal pain. Denied any more nausea vomiting. Remains on Ross catheter, urine still is dirty and dark brown. Denied fever or chills. Denied chest pain or shortness of breath. She is afebrile, slightly tachycardic, blood pressure on the higher side, pulse ox is 100% on room air. - Physical Exam General: Alert, Oriented x3, Cooperative, No apparent distress HEENT: Atraumatic, PERRLA, EOMI Oral: Moist Mucosa, No Gingival or Mucosal Lesions/ Ulcerations Neck: Supple, No JVD, Negative Carotid Bruits, Trachea Midline, Thyroid Normal Size and Texture Lungs: Clear to auscultation, Normal air movement, No rhonchi, No wheeze, No rales Cardiovascular: Regular rate, Regular Rhythm, Normal S1, Normal S2, PMI Normal, Tachycardic Abdomen: Bowel Sounds Present, Soft, Non Tender, Non-Distended, No Hepato- splenomegaly Extremities: No clubbing, No cyanosis, No edema Skin: No rashes, No breakdown Lymphatic: No Cervical, Supraclavicular, or Inguinal Adenopathy Neurological: Cranial nerves II-XII grossly intact, Motor Exam 5/5 strength throughout Psych/Mental Status: Normal Affect, Appropriate, Alert and oriented to time, place, person, mood and affect Vital Signs Temp Pulse Resp BP Pulse Ox 98.5 F 112 H 16 149/87 H 100 03/25/17 03:20 03/25/17 03:20 03/25/17 03:20 03/25/17 03:20 03/25/17 03:20 Oxygen Flow Rate 6 Oxygen Delivery Method Room Air Weight: 230 lb 13.184 oz Body Mass Index (BMI) 42.2 Finger Stick Blood Glucose 172 Intake and Output for Last 24 Hours 03/23/17 03/24/17 03/25/17 23:59 23:59 23:59 Intake Total 3250 / 3250 2700 / 2700 1184 / 1184 Output Total 1850 / 1850 1300 / 1300 800 / 800 Balance 1400 / 1400 1400 / 1400 384 / 384 Microbiology Past 72 Hours 03/22/17 Unknown Urine Culture - Preliminary Urine Catheter - Catheter Yeast Laboratory Tests Past 24 Hrs 03/24/17 03/24/17 03/24/17 05:25 06:25 06:25 WBC 13.4 H RBC 2.81 L Hgb 7.2 L Hct 20.9 L MCV 74.4 L MCH 25.6 L MCHC 34.4 RDW 16.0 H RDW Differential 42.9 Plt Count 294 MPV 8.1 Immature Gran % (Auto) 0.400 Neut % (Auto) 78.0 H Lymph % (Auto) 8.5 L [place] % (Auto) 10.2 H Eos % (Auto) 2.7 Baso % (Auto) 0.2 Absolute Neuts (auto) 10.5 H Absolute Lymphs (auto) 1.14 Total Counted Not Reportable Sodium 141 Potassium 3.9 Chloride 111 H Carbon Dioxide 18.0 L BUN 41 H Creatinine 4.31 H Estim Creat Clear Calc 13.59 Est GFR (MDRD) Af Amer 15 L Est GFR (MDRD) Non-Af 12 L BUN/Creatinine Ratio 9.5 L Glucose 57 L Calcium 8.2 L Phosphorus 2.6 Albumin 1.7 L Random Vancomycin 21.0 H 03/25/17 03/25/17 06:17 06:17 WBC 9.7 RBC 2.89 L Hgb 7.5 L Hct 21.4 L MCV 74.0 L MCH 26.0 L MCHC 35.0 RDW 15.3 H RDW Differential 39.9 Plt Count 323 MPV 8.1 Immature Gran % (Auto) 1.000 H Neut % (Auto) 78.0 H Lymph % (Auto) 7.4 L [place] % (Auto) 10.1 H Eos % (Auto) 3.2 Baso % (Auto) 0.3 Absolute Neuts (auto) 7.5 Absolute Lymphs (auto) 0.72 L Total Counted Not Reportable Sodium Potassium Chloride Carbon Dioxide BUN Creatinine Estim Creat Clear Calc Est GFR (MDRD) Af Amer Est GFR (MDRD) Non-Af BUN/Creatinine Ratio Glucose Calcium Phosphorus Albumin Random Vancomycin 17.4 H POC Glucose 1203/24/17 03/24/17 06:44 22:12 16:50 POC Glucose 166 H 126 H 139 H 03/24/17 03/24/17 03/24/17 11:28 09:07 07:24 POC Glucose 122 H 101 71 03/24/17 06:48 POC Glucose 57 L Clinical Impression(s) from Imaging Studies Abdomen/Pelvis CT 03/19/17 22:48 IMPRESSION: 1. Moderate bilateral hydroureteronephrosis which is unchanged, with associated distal migration of a 6-year-old calculus which is now seen at the left ureterovesicular junction. 2. Moderate fluid distention of the urinary bladder suggesting urinary outlet obstruction. 3. Nonobstructing 7 mm calculus in the left lower renal pelvis which is unchanged. Electronically Signed: Faustino Ramirez MD at 0:15 EST Tel , Service support , Chest X-Ray 03/20/17 02:26 IMPRESSION: 1. Appropriate positioning of central venous line. 2. No evidence of acute cardiopulmonary disease. Electronically Signed: Faustino Ramirez MD at 4:04 EST Tel , Service support , Assessment/Plan Active and Suspected Problems Bilateral hydronephrosis (Acute) Ureteral calculi (Acute) Sepsis (Acute) UTI (urinary tract infection) (Acute) FRANSICO (acute kidney injury) (Acute) This is a 41 years old female patient admitted because of nausea and vomiting, found to have acute cystitis with sepsis, acute renal failure due to bilateral obstructive uropathy, left renal calculus, bilateral hydronephrosis, acute on chronic anemia, bacteremia and uncontrolled type 2 diabetes mellitus. #1 acute cystitis/sepsis: She is on IV Rocephin, oral Diflucan and IV vancomycin. Urine culture revealed mixed growth as well as yeast, on oral Diflucan. She has been afebrile throughout admission, white blood cell count is back to normal. Still tachycardic. Plan: Continue same treatment. #2 acute renal failure: Secondary to bilateral obstructive uropathy as well as left renal calculus. She is on Ross catheter, urine is still dirty and brown in color, slightly improving. Her creatinine has been improving very slowly, today's creatinine is 4.13. Nephrology on the case. #3 bilateral obstructive uropathy/left renal calculus: Status post cystoscopy and placement of bilateral ureteral stents. Remained on Ross catheter as above. Urology is following. Kidney function is slowly improving. #4 Staphylococcus epidermidis bacteremia: She is on IV Rocephin and vancomycin. She remained afebrile, leukocytosis resolved. It is only in 1 bottle and could be a contaminant. Plan: Continue same treatment, repeat blood culture to ensure resolution. #5 acute on chronic anemia: Secondary to the blood loss due to renal calculus and hematuria. Her hemoglobin has been in the range of 7-9 g/dL since beginning of March,. Before that, it was normal. Today's hemoglobin 7.5 g/dL. Plan: Transfuse 1 unit of packed RBCs, repeat CBC tomorrow morning. #6 uncontrolled type 2 diabetes mellitus: On March 08, 2017, hemoglobin A1c was 15 and on March 22, 2017, hemoglobin A1c was 10.4. Initially, blood pressure was high up to 300s. She was started on Levemir as well as pre-meal insulin 15 units 3 times daily. Sugar has been low since then, was as low as 57 mg/dL. Patient reported poor appetite, nursing staff mentioned that his sugar has been low. Plan: Change Levemir to 12 units twice daily, DC pre-meal NovoLog, start insulin sliding scale. #7 CAD status post stents: Denies any complaints, stable. She is not on any cardiac medications. #8 chronic back pain: She is on IV morphine as needed. #9 depression: Continue Cymbalta. #10 DVT prophylaxis: Subcu heparin. This note was generated with [employer] dictation software. It may contain incorrect words, spelling, and punctuation that were not noted in checking the note before signing. Code Visit Inpatient E&M: 20310 Subs Hosp L2
[2017-03-25] MEDS: Ceftriaxone 1 GM/50 ML BAG IV (09:55)
[2017-03-25] MEDS: Heparin Injection 5,000 UNITS/ML Syringe 5000 UNITS SC ×2 (09:56→22:34)
[2017-03-25] MEDS: DULoxetine Hcl 60 MG Capsule PO (09:56)
--- NOTE | 2017-03-25 10:35 | NURSING ---
Pt. c/o mmoderate nausea.
[2017-03-25] MEDS: 0.9% NaCl Peripheral Flush Adult/Peds IV ×3 (10:36→18:32)
[2017-03-25] MEDS: Sodium Bicarbonate 650 MG Tablet 325 MG PO ×4 (10:47→22:33)
[2017-03-25 11:01] LABS: Bedside Glucose 187 mg/dL (70-110)
[2017-03-25 12:20] LABS: Albumin, Serum 1.6 g/dL (3.4-5.0); BUN 34 mg/dL (7-18); BUN/Creat Ratio 8.4 RATIO (10-20); Calcium,Total 7.6 mg/dL (8.5-10.1); Chloride 104 mmol/L (98-107); Creatinine, Serum 4.04 mg/dL (0.55-1.02); EST Glomerular Filtration Rate 13 mL/min (>60); Est Glom Filt Rate - Afr Amer 16 mL/min (>60); Estimated Creatinine Clearance 14.49 ml/min; Glucose 233 mg/dL (70-110); Phosphorus 2.5 mg/dL (2.5-4.9); Potassium 4.2 mmol/L (3.5-5.1); Sodium Level 136 mmol/L (136-145)
[2017-03-25 13:01] LABS: Bedside Glucose 258 mg/dL (70-110)
[2017-03-25] MEDS: Acetaminophen 325 MG Tablet 650 MG PO (14:52)
[2017-03-25 18:26] LABS: Bedside Glucose 228 mg/dL (70-110)
[2017-03-25] MEDS: HYDROcodone Bitartrate/Apap 5/325 Tablet PO (18:32)
[2017-03-25] MEDS: Magnesium Hydroxide 30 ML UDC PO (18:32)
[2017-03-25] MEDS: Ondansetron 4 MG/2 ML Vial IV (18:32)
[2017-03-25 22:51] LABS: Bedside Glucose 194 mg/dL (70-110)
[2017-03-26] VITALS (9 sets, daily range): BP systolic 111–153; BP diastolic 68–101; PULSE 99–114; RESP 18–19; TEMP 36.7–37.4; O2SAT 95–99
[2017-03-26] MEDS: 0.9% NaCl Peripheral Flush Adult/Peds IV ×3 (06:30→20:10)
[2017-03-26 06:59] LABS: Absolute Lymphocyte Count 1.02 X10^3/ul (0.83-4.51); Absolute Neutrophil Count 7.1 X10^3/uL (2.0-7.7); Basophil# 0.01 X10^3/uL; Basophil% 0.1 % (0-1); Eosinophil# 0.19 X10^3/uL; Hematocrit 24.7 % (37-47); Hemoglobin 8.4 g/dl (12.0-15.0); Lymphocyte # 1.02 X10^3/ul (4.0); Mean Corpuscular Volume 76.5 fL (81-99); Mean Platelet Vol. 8.2 fl (6.2-12.0); Monocyte# 0.87 X10^3/uL; Monocyte% 9.4 % (0-10); Neutrophil # 7.11 X10^3/uL (2.7-7.7); Neutrophil % 76.4 % (47-70); Platelet Count 251 K/mm3 (150-450); RBC Distribution Width SD 44.8 fl (35.1-43.9); Red Blood Count 3.23 M/mm3 (4.2-5.4); White Blood Count 9.3 K/mm3 (4.4-11.0)
[2017-03-26 07:01] LABS: Bedside Glucose 103 mg/dL (70-110)
[2017-03-26 07:18] LABS: Anion Gap 8 (5-15); BUN 35 mg/dL (7-18); BUN/Creat Ratio 9.3 RATIO (10-20); Calcium,Total 7.4 mg/dL (8.5-10.1); Chloride 103 mmol/L (98-107); Creatinine, Serum 3.75 mg/dL (0.55-1.02); EST Glomerular Filtration Rate 14 mL/min (>60); Est Glom Filt Rate - Afr Amer 17 mL/min (>60); Estimated Creatinine Clearance 15.61 ml/min; Glucose 90 mg/dL (70-110); Potassium 4.3 mmol/L (3.5-5.1); Sodium Level 137 mmol/L (136-145)
[2017-03-26 07:20] LABS: POSITIVE COUNT NO; POSITIVE DIFFERENTIAL NO; POSITIVE MORPHOLOGY NO
[2017-03-26 07:24] LABS: Vancomycin, Random Level 18.3 ug/mL (0.0-15.0)
--- NOTE | 2017-03-26 08:01 | PN_ITS ---
Patient Problems: Active and Suspected Problems Bilateral hydronephrosis (Acute) Ureteral calculi (Acute) Sepsis (Acute) UTI (urinary tract infection) (Acute) FRANSICO (acute kidney injury) (Acute) Subjective: Chief complaint: Follow-up after admission for acute cystitis with sepsis, obstructive uropathy complicated by acute renal failure, bacteremia and uncontrolled type 2 diabetes mellitus. Patient seen and examined. No acute events overnight. She denies any significant complaints. She has no more flank pain, nausea or vomiting. She denied fever or chills. Denied chest pain or shortness of breath. She remained afebrile, heart rate has been around 100, blood pressure slightly elevated. - Physical Exam General: Alert, Oriented x3, Cooperative, No apparent distress HEENT: Atraumatic, PERRLA, EOMI Oral: Moist Mucosa, No Gingival or Mucosal Lesions/ Ulcerations Neck: Supple, No JVD, Negative Carotid Bruits, Trachea Midline, Thyroid Normal Size and Texture Lungs: Clear to auscultation, No rhonchi, No wheeze, No rales, Diminished Cardiovascular: Regular rate, Regular Rhythm, Normal S1, Normal S2, PMI Normal, Tachycardic Abdomen: Bowel Sounds Present, Soft, Non Tender, Non-Distended, No Hepato- splenomegaly Extremities: No clubbing, No cyanosis, No edema Skin: No rashes, No breakdown Lymphatic: No Cervical, Supraclavicular, or Inguinal Adenopathy Neurological: Cranial nerves II-XII grossly intact, Motor Exam 5/5 strength throughout Psych/Mental Status: Normal Affect, Appropriate Vital Signs Temp Pulse Resp BP Pulse Ox 98.7 F 101 H 18 153/101 H 98 03/26/17 02:24 03/26/17 02:24 03/26/17 02:24 03/26/17 02:24 03/26/17 02:24 Oxygen Flow Rate 6 Oxygen Delivery Method Room Air Weight: 230 lb 13.184 oz Body Mass Index (BMI) 42.2 Finger Stick Blood Glucose 172 Intake and Output for Last 24 Hours 03/24/17 03/25/17 03/26/17 23:59 23:59 23:59 Intake Total 2700 / 2700 3814 / 3814 606 / 606 Output Total 1300 / 1300 2053 / 2053 600 / 600 Balance 1400 / 1400 1761 / 1761 6 / 6 Microbiology Past 72 Hours 03/22/17 Unknown Urine Culture - Preliminary Urine Catheter - Catheter Yeast Laboratory Tests Past 24 Hrs 03/25/17 03/25/17 03/26/17 09:45 11:34 06:25 WBC 9.3 RBC 3.23 L Hgb 8.4 L Hct 24.7 L MCV 76.5 L MCH 26.0 L MCHC 34.0 RDW 16.0 H RDW Differential 44.8 H Plt Count 251 MPV 8.2 Immature Gran % (Auto) 1.100 H Neut % (Auto) 76.4 H Lymph % (Auto) 11.0 L [place] % (Auto) 9.4 Eos % (Auto) 2.0 Baso % (Auto) 0.1 Absolute Neuts (auto) 7.1 Absolute Lymphs (auto) 1.02 Total Counted Not Reportable Sodium 136 Potassium 4.2 Chloride 104 Carbon Dioxide 22.0 Anion Gap BUN 34 H Creatinine 4.04 H Estim Creat Clear Calc 14.49 Est GFR (MDRD) Af Amer 16 L Est GFR (MDRD) Non-Af 13 L BUN/Creatinine Ratio 8.4 L Glucose 233 H Calcium 7.6 L Phosphorus 2.5 Albumin 1.6 L Random Vancomycin Blood Type A POSITIVE Antibody Screen NEGATIVE Crossmatch See Detail 03/26/17 03/26/17 06:25 06:25 WBC RBC Hgb Hct MCV MCH MCHC RDW RDW Differential Plt Count MPV Immature Gran % (Auto) Neut % (Auto) Lymph % (Auto) [place] % (Auto) Eos % (Auto) Baso % (Auto) Absolute Neuts (auto) Absolute Lymphs (auto) Total Counted Sodium 137 Potassium 4.3 Chloride 103 Carbon Dioxide 26.0 Anion Gap 8 BUN 35 H Creatinine 3.75 H Estim Creat Clear Calc 15.61 Est GFR (MDRD) Af Amer 17 L Est GFR (MDRD) Non-Af 14 L BUN/Creatinine Ratio 9.3 L Glucose 90 Calcium 7.4 L Phosphorus Albumin Random Vancomycin 18.3 H Blood Type Antibody Screen Crossmatch POC Glucose 03/26/17 03/25/17 03/25/17 06:19 22:32 18:15 POC Glucose 103 194 H 228 H 03/25/17 03/25/17 12:52 10:46 POC Glucose 258 H 187 H Assessment/Plan Active and Suspected Problems Bilateral hydronephrosis (Acute) Ureteral calculi (Acute) Sepsis (Acute) UTI (urinary tract infection) (Acute) FRANSICO (acute kidney injury) (Acute) This is a 41 years old female patient admitted because of nausea and vomiting, found to have acute cystitis with sepsis, acute renal failure due to bilateral obstructive uropathy, left renal calculus, bilateral hydronephrosis, acute on chronic anemia, bacteremia which could be a contamination and uncontrolled type 2 diabetes mellitus. #1 acute cystitis/sepsis: She is on IV Rocephin, oral Diflucan and IV vancomycin. Urine culture revealed mixed growth as well as yeast, on oral Diflucan. She has been afebrile throughout admission, white blood cell count is back to normal. Still tachycardic but improved. Plan: Continue same treatment. #2 acute renal failure: Secondary to bilateral obstructive uropathy as well as left renal calculus. She is on Ross catheter, urine is clearing up. Her creatinine has been improving very slowly, today's creatinine is 3.75. Nephrology on the case. #3 bilateral obstructive uropathy/left renal calculus: Status post cystoscopy and placement of bilateral ureteral stents. Remained on Ross catheter as above. Urology is following. Kidney function is slowly improving, urine is clearing up. #4 Staphylococcus epidermidis bacteremia: She is on IV Rocephin and vancomycin. She remained afebrile, leukocytosis resolved. It is only in 1 bottle and could be a contaminant. Repeat blood cultures pending. #5 acute on chronic anemia: Secondary to the blood loss due to renal calculus and hematuria. Her hemoglobin has been in the range of 7-9 g/dL since beginning of March,. Before that, it was normal. Today's hemoglobin 8.4 g/dL, received 1 unit of packed RBCs. Repeat CBC and BMP tomorrow morning. #6 elevated blood pressure: Without history of hypertension. Her blood pressure has been persistently high since admission. She is not on pain and she is afebrile. She is slightly tachycardic. Plan: Start metoprolol 25 mg p.o. twice daily. #7 uncontrolled type 2 diabetes mellitus: She is on Levemir insulin twice daily as well as insulin sliding scale, dose adjusted yesterday Because of hypoglycemia. On March 08, 2017, hemoglobin A1c was 15 and on March 22, 2017, hemoglobin A1c was 10.4. Blood sugars has been in the range of 200s, improved. #8 CAD status post stents: Denies any complaints, stable. She is not on any cardiac medications. #9 chronic back pain: She is on IV morphine as needed. #10 depression: Continue Cymbalta. #11 DVT prophylaxis: Subcu heparin. This note was generated with [employer] dictation software. It may contain incorrect words, spelling, and punctuation that were not noted in checking the note before signing. Code Visit Inpatient E&M: 92785 Subs Hosp L2
--- NOTE | 2017-03-26 11:19 | NURSING ---
pt off unit at this time for gastric emptying study.
[2017-03-26 11:35] LABS: Bedside Glucose 85 mg/dL (70-110)
[2017-03-26] MEDS: Heparin Injection 5,000 UNITS/ML Syringe 5000 UNITS SC ×2 (13:20→22:50)
[2017-03-26] MEDS: Sodium Bicarbonate 650 MG Tablet 325 MG PO ×3 (13:20→22:50)
[2017-03-26] MEDS: DULoxetine Hcl 60 MG Capsule PO (13:20)
[2017-03-26] MEDS: Metoprolol Tartrate 25 MG Tablet PO ×2 (13:21→22:50)
[2017-03-26] MEDS: Ceftriaxone 1 GM/50 ML BAG IV (13:41)
--- NOTE | 2017-03-26 14:55 | PCM.PN.REN ---
Patient Problems: Active and Suspected Problems Bilateral hydronephrosis (Acute) Ureteral calculi (Acute) Sepsis (Acute) UTI (urinary tract infection) (Acute) FRANSICO (acute kidney injury) (Acute) Subjective: denies SOB. Still with nausea, NPO for gastric emptying study today. - Physical Exam General: Alert, Oriented x3, Cooperative Lungs: Clear to auscultation Cardiovascular: Regular rate, No rub noted Abdomen: Bowel Sounds Present, Soft, Non Tender, Non-Distended, Obese Extremities: No edema Vital Signs Temp Pulse Resp BP Pulse Ox 99.3 F H 114 H 18 111/68 99 03/26/17 13:17 03/26/17 13:21 03/26/17 13:17 03/26/17 13:17 03/26/17 13:17 Oxygen Flow Rate 6 Oxygen Delivery Method Room Air Weight: 104.7 kg Body Mass Index (BMI) 42.2 Finger Stick Blood Glucose 172 Intake and Output for Last 24 Hours 03/24/17 03/25/17 03/26/17 23:59 23:59 23:59 Intake Total 2700 / 2700 3814 / 3814 994 / 994 Output Total 1300 / 1300 2053 / 2053 1300 / 1300 Balance 1400 / 1400 1761 / 1761 -306 / -306 Microbiology Past 72 Hours 03/22/17 Unknown Urine Culture - Preliminary Urine Catheter - Catheter Yeast Laboratory Tests Past 24 Hrs 03/26/17 03/26/17 03/26/17 06:25 06:25 06:25 WBC 9.3 RBC 3.23 L Hgb 8.4 L Hct 24.7 L MCV 76.5 L MCH 26.0 L MCHC 34.0 RDW 16.0 H RDW Differential 44.8 H Plt Count 251 MPV 8.2 Immature Gran % (Auto) 1.100 H Neut % (Auto) 76.4 H Lymph % (Auto) 11.0 L [place] % (Auto) 9.4 Eos % (Auto) 2.0 Baso % (Auto) 0.1 Absolute Neuts (auto) 7.1 Absolute Lymphs (auto) 1.02 Total Counted Not Reportable Sodium 137 Potassium 4.3 Chloride 103 Carbon Dioxide 26.0 Anion Gap 8 BUN 35 H Creatinine 3.75 H Estim Creat Clear Calc 15.61 Est GFR (MDRD) Af Amer 17 L Est GFR (MDRD) Non-Af 14 L BUN/Creatinine Ratio 9.3 L Glucose 90 Calcium 7.4 L Random Vancomycin 18.3 H POC Glucose 03/26/17 03/26/17 03/25/17 11:15 06:19 22:32 POC Glucose 85 103 194 H 03/25/17 18:15 POC Glucose 228 H Assessment/Plan Active and Suspected Problems Bilateral hydronephrosis (Acute) Ureteral calculi (Acute) Sepsis (Acute) UTI (urinary tract infection) (Acute) FRANSICO (acute kidney injury) (Acute) 1. FRANSICO o due to urinary retention Bilateral hydronephrosis s/p ureteral stents. Will continue to monitor renal function. Creatinine slightly improved today with ivf. 2. Obstructive uropathy from urinary retention, diabetic neurogenic bladder. 3. Obstructive kidney stone follow-up with urology 4. Diabetes mellitus type 2 with diabetic nephropathy 5. Iron deficiency anemia IV iron therapy. 6. Hyperkalemia follow low potassium diet. S 7. Metabolic acidosis from renal failure. Start bicarbonate tablets
[2017-03-26 15:11] LABS: Bedside Glucose 119 mg/dL (70-110)
[2017-03-26] MEDS: 0.9% Normal Saline 1,000 ML 75 ML IV (15:53)
[2017-03-26] MEDS: Glucerna Shake 120 ML LIQUID PO ×2 (17:09→22:50)
[2017-03-26] MEDS: Ondansetron 4 MG/2 ML Vial IV (20:10)
[2017-03-26] MEDS: Magnesium Hydroxide 30 ML UDC PO (23:00)
[2017-03-26 23:06] LABS: Bedside Glucose 121 mg/dL (70-110)
[2017-03-27 03:50] LABS: Absolute Lymphocyte Count 1.05 X10^3/ul (0.83-4.51); Absolute Neutrophil Count 8.8 X10^3/uL (2.0-7.7); Basophil# 0.01 X10^3/uL; Basophil% 0.1 % (0-1); Eosinophil# 0.08 X10^3/uL; Eosinophils% 0.7 % (0-5); Hematocrit 24.9 % (37-47); Hemoglobin 8.4 g/dl (12.0-15.0); Lymphocyte # 1.05 X10^3/ul (4.0); Lymphocyte % 9.4 % (19-41); Mean Corp Hgb Conc 33.7 g/gl (32-36); Mean Corpuscular Hgb 26.1 pg (27.0-32.0); Mean Corpuscular Volume 77.3 fL (81-99); Mean Platelet Vol. 8.2 fl (6.2-12.0); Monocyte# 1.07 X10^3/uL; Monocyte% 9.6 % (0-10); Neutrophil # 8.83 X10^3/uL (2.7-7.7); Neutrophil % 78.9 % (47-70); POSITIVE COUNT NO; POSITIVE DIFFERENTIAL NO; POSITIVE MORPHOLOGY NO; Platelet Count 266 K/mm3 (150-450); RBC Distribution Width CV 16.2 % (11.6-14.6); RBC Distribution Width SD 45.9 fl (35.1-43.9); Red Blood Count 3.22 M/mm3 (4.2-5.4); White Blood Count 11.2 K/mm3 (4.4-11.0)
[2017-03-27 03:59] VITALS: BP 145/85; PULSE 88; RESP 18; TEMP 36.7; O2SAT 99
[2017-03-27 04:06] LABS: Anion Gap 10 (5-15); BUN 33 mg/dL (7-18); Calcium,Total 7.8 mg/dL (8.5-10.1); Chloride 100 mmol/L (98-107); Creatinine, Serum 3.67 mg/dL (0.55-1.02); EST Glomerular Filtration Rate 14 mL/min (>60); Est Glom Filt Rate - Afr Amer 18 mL/min (>60); Estimated Creatinine Clearance 15.95 ml/min; Glucose 114 mg/dL (70-110); Potassium 4.3 mmol/L (3.5-5.1); Sodium Level 136 mmol/L (136-145)
[2017-03-27 06:36] LABS: Bedside Glucose 87 mg/dL (70-110)
--- NOTE | 2017-03-27 09:10 | PN_ITS ---
Patient Problems: Active and Suspected Problems Bilateral hydronephrosis (Acute) Ureteral calculi (Acute) Sepsis (Acute) UTI (urinary tract infection) (Acute) FRANSICO (acute kidney injury) (Acute) Subjective: Chief complaint: Follow-up after admission for acute cystitis with sepsis, obstructive uropathy complicated by acute renal failure, bacteremia and uncontrolled type 2 diabetes mellitus. Patient seen and examined. No acute events overnight. She denies any significant complaints. Urine in the urine bag is dark and red. She mentioned that she was walking last night and the Ross catheter got caught in between her legs. Denies fever chills. Vital signs are stable, blood pressure slightly elevated, afebrile. - Physical Exam General: Alert, Oriented x3, Cooperative, No apparent distress HEENT: Atraumatic, PERRLA, EOMI Oral: Moist Mucosa, No Gingival or Mucosal Lesions/ Ulcerations Neck: Supple, No JVD, Negative Carotid Bruits, Trachea Midline, Thyroid Normal Size and Texture Lungs: Clear to auscultation, No rhonchi, No wheeze, No rales, Diminished Cardiovascular: Regular rate, Regular Rhythm, Normal S1, Normal S2, No murmurs, PMI Normal Abdomen: Bowel Sounds Present, Soft, Non Tender, Non-Distended, No Hepato- splenomegaly, Obese Extremities: No clubbing, No cyanosis, No edema Skin: No rashes, No breakdown Lymphatic: No Cervical, Supraclavicular, or Inguinal Adenopathy Neurological: Cranial nerves II-XII grossly intact, Motor Exam 5/5 strength throughout Psych/Mental Status: Normal Affect, Appropriate, Alert and oriented to time, place, person, mood and affect Vital Signs Temp Pulse Resp BP Pulse Ox 98.0 F 88 18 145/85 H 99 03/27/17 03:59 03/27/17 03:59 03/27/17 03:59 03/27/17 03:59 03/27/17 03:59 Oxygen Flow Rate 6 Oxygen Delivery Method Room Air Weight: 230 lb 13.184 oz Body Mass Index (BMI) 42.2 Finger Stick Blood Glucose 172 Intake and Output for Last 24 Hours 03/25/17 03/26/17 03/27/17 23:59 23:59 23:59 Intake Total 3814 / 3814 1574 / 1574 955 / 955 Output Total 2052 / 2052 1650 / 1650 1150 / 1150 Balance 1761 / 1761 -76 / -76 -195 / -195 Microbiology Past 72 Hours 03/22/17 Unknown Urine Culture - Preliminary Urine Catheter - Catheter Yeast Laboratory Tests Past 24 Hrs 03/27/17 03/27/17 03:30 03:30 WBC 11.2 H RBC 3.22 L Hgb 8.4 L Hct 24.9 L MCV 77.3 L MCH 26.1 L MCHC 33.7 RDW 16.2 H RDW Differential 45.9 H Plt Count 266 MPV 8.2 Immature Gran % (Auto) 1.300 H Neut % (Auto) 78.9 H Lymph % (Auto) 9.4 L [place] % (Auto) 9.6 Eos % (Auto) 0.7 Baso % (Auto) 0.1 Absolute Neuts (auto) 8.8 H Absolute Lymphs (auto) 1.05 Total Counted Not Reportable Sodium 136 Potassium 4.3 Chloride 100 Carbon Dioxide 26.0 Anion Gap 10 BUN 33 H Creatinine 3.67 H Estim Creat Clear Calc 15.95 Est GFR (MDRD) Af Amer 18 L Est GFR (MDRD) Non-Af 14 L BUN/Creatinine Ratio 9.0 L Glucose 114 H Calcium 7.8 L POC Glucose 03/27/17 03/26/17 03/26/17 06:15 22:50 15:08 POC Glucose 87 121 H 119 H 03/26/17 11:15 POC Glucose 85 Assessment/Plan Active and Suspected Problems Bilateral hydronephrosis (Acute) Ureteral calculi (Acute) Sepsis (Acute) UTI (urinary tract infection) (Acute) FRANSICO (acute kidney injury) (Acute) This is a 41 years old female patient admitted because of nausea and vomiting, found to have acute cystitis with sepsis, acute renal failure due to bilateral obstructive uropathy, left renal calculus, bilateral hydronephrosis, acute on chronic anemia, bacteremia which could be a contamination and uncontrolled type 2 diabetes mellitus. #1 acute cystitis/sepsis: Remained on IV Rocephin, oral Diflucan and IV vancomycin. Urine culture revealed mixed growth as well as yeast, on oral Diflucan. She has been afebrile throughout admission. Plan: Continue same treatment. Will discuss with urology and nephrology about discharge plan. #2 acute renal failure: Secondary to bilateral obstructive uropathy as well as left renal calculus. She is on Ross catheter, urine is again became dark brown to red. Patient reported that Ross catheter tube got caught in between her legs last night. Her creatinine has been improving very slowly, today's creatinine is 3.67. Nephrology on the case. #3 bilateral obstructive uropathy/left renal calculus: Status post cystoscopy and placement of bilateral ureteral stents. Remained on Ross catheter as above. Urology is following. Kidney function is slowly improving. #4 Staphylococcus epidermidis bacteremia: She is on IV Rocephin and vancomycin. She remained afebrile, leukocytosis resolved. It is only in 1 bottle and could be a contaminant. Repeat blood cultures pending. #5 acute on chronic anemia: Secondary to the blood loss due to renal calculus and hematuria. Her hemoglobin has been in the range of 7-9 g/dL since beginning of March,. Before that, it was normal. Today's hemoglobin 8.4 g/dL, remained stable compared to yesterday, received 1 unit of packed RBCs. #6 elevated blood pressure: Without history of hypertension. Started on metoprolol yesterday. Blood pressure still on the higher side. #7 uncontrolled type 2 diabetes mellitus: She is on Levemir insulin twice daily as well as insulin sliding scale, dose adjusted Because of hypoglycemia. On March 08, 2017, hemoglobin A1c was 15 and on March 22, 2017, hemoglobin A1c was 10.4. #8 CAD status post stents: Denies any complaints, stable. She is not on any cardiac medications. #9 chronic back pain: She is on IV morphine as needed. #10 depression: Continue Cymbalta. #11 DVT prophylaxis: We will DC subcu heparin because of dark bloody urine again. This note was generated with [employer] dictation software. It may contain incorrect words, spelling, and punctuation that were not noted in checking the note before signing.
[2017-03-27] MEDS: 0.9% Normal Saline 1,000 ML 75 ML IV (09:57)
[2017-03-27] MEDS: DULoxetine Hcl 60 MG Capsule PO (09:57)
[2017-03-27] MEDS: Sodium Bicarbonate 650 MG Tablet 325 MG PO (09:58)
[2017-03-27 10:00] VITALS: BP 135/89; PULSE 94; RESP 16; TEMP 36.7; O2SAT 100
--- NOTE | 2017-03-27 10:16 | NURSING ---
Dr. tripp requesting we call as states schmidt was clear yesterday today notable hematuria and that pt is telling him she may have pulled at the catheter, requesting plan for discharge, possible readiness for dc today. in to see pt, urine in schmidt dark jarquin cola color with several small clots noted. pt did verbalize possible pulled on catheter this morning with repositioning. Discussed Dr. Tripp's request. primary RN at bedside. both deny all needs. Dr. Martinez paged.
[2017-03-27] MEDS: Ceftriaxone 1 GM/50 ML BAG IV (10:19)
[2017-03-27 10:37] VITALS: PULSE 94
[2017-03-27] MEDS: Metoprolol Tartrate 25 MG Tablet PO (10:37)
[2017-03-27 10:46] LABS: Bedside Glucose 79 mg/dL (70-110)
--- NOTE | 2017-03-27 11:43 | DCINST_ITS ---
- Discharge Diagnoses Current Active Problems: Current Active and Chronic Problems Bilateral hydronephrosis (Acute) Ureteral calculi (Acute) Sepsis (Acute) UTI (urinary tract infection) (Acute) FRANSICO (acute kidney injury) (Acute) Hydroureter (Chronic) Hydronephrosis (Chronic) Bladder outlet obstruction (Chronic) You will use the following diet at home:: Calorie/Carbohydrate Controlled ( specify 1200, 1400, etc) - 1800 giovanny, Renal (restricted protein/sodium) Discharge Activity: Return to Normal Activity Weight Bearing Status: Weight bearing as tolerated Call your doctor if you observe: Fever of 101 or Higher, Shortness of breath, Dizziness, Fainting spells, Chest pain, Increased palpitations (irregular heartbeat), Uncontrolled pain Instructions: ED Catheter Care Ross, Emptying and Cleaning Your Urinary Catheter Bag, Discharge Instructions for Acute Kidney Injury Allergies/Adverse Reactions: Allergies No Known Allergies Allergy (Verified 03/19/17 22:29) Medications to take at Discharge Duloxetine Hcl [Cymbalta] 60 mg PO DAILY 03/08/17 Glimepiride [Amaryl] 2 mg PO DAILY 30 Days #30 tab 03/13/17 Insulin Glargine,Hum.rec.anlog [Lantus] 22 unit SQ QHS #0 03/13/17 MedroxyPROGESTERone [Depo-Provera] 150 mg IM QMONTH 03/20/17 Fluconazole [Diflucan] 200 mg PO QODAY #5 tab 03/27/17 Levofloxacin [Levaquin] 500 mg PO QODAY #5 tab 03/27/17 Metoprolol Tartrate [Lopressor (beta hellen)] 25 mg PO BID #30 tab 03/27/17 The following prescriptions were given: Fluconazole [Diflucan] 200 mg PO QODAY #5 tab Levofloxacin [Levaquin] 500 mg PO QODAY #5 tab Metoprolol Tartrate [Lopressor (beta hellen)] 25 mg PO BID #30 tab Primary Care Physician: Jessica Ayala NP-C [Primary Care Provider] - Please follow up with your Primary Care Physician in: 2 weeks. Please Follow Up With: Betty Odonnell DO When: 1 week. Please Follow Up With: Charan Martinez MD When: 1 week.
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
--- NOTE | 2017-03-27 13:17 | CASEMGMT ---
Per head charger, patient is being discharged with instructions to straight cath. Patient will need straight catheters. RN CM called [facility] and found they do carry supplies and are in-network with [facility]. Patient will be instructed by nursing staff to take prescription to [facility] to be filled.
--- NOTE | 2017-03-27 13:45 | NURSING ---
TLC D/C'D FROM [facility] PER ORDER. CATHETER REMOVED EASILY. CATHETER AND TIP INTACT. PRESSURE HELD X 5 MIN @ INSERTION SITE. NO BLEEDING NOTED. PT AWARE TO REMAIN ON BEDREST W/HOB FLAT X 30 MIN TOTAL. RNJESSY, ALSO MADE AWARE. SITE WAS COVERED W/STERILE VASELINE GAUZE AND STERILE TEGADERM. PT INSTRUCTED TO KEEP DSG D/I X 24 HRS. PT VOICES UNDERSTANDING.
--- NOTE | 2017-03-27 14:59 | DS.PCM_ITS ---
Discharge Date and Diagnosis Date of Admission: 03/20/17 Date of Discharge: 03/27/17 - Primary Discharge Diagnosis Active and Suspected Problems #1 Acute cystitis/sepsis. #2 acute renal failure, secondary to bilateral obstructive uropathy. #3 bilateral obstructive uropathy/left renal calculus, status post cystoscopy and placement of bilateral ureteral stents. #4 blood culture positive for staph epidermidis, found to be a contaminant, acute bacteremia ruled out. #5 acute on chronic anemia. #6 newly diagnosed hypertension. #7 uncontrolled type 2 diabetes mellitus. - Secondary Discharge Diagnosis Chronic Problems Type II diabetes mellitus (Chronic) Chronic low back pain (Chronic) Hydroureter (Chronic) Hydronephrosis (Chronic) Bladder outlet obstruction (Chronic) Hospital Course and Treatment Imaging Results: Clinical Impression(s) from Imaging Studies Abdomen/Pelvis CT 03/19/17 22:48 IMPRESSION: 1. Moderate bilateral hydroureteronephrosis which is unchanged, with associated distal migration of a 6-year-old calculus which is now seen at the left ureterovesicular junction. 2. Moderate fluid distention of the urinary bladder suggesting urinary outlet obstruction. 3. Nonobstructing 7 mm calculus in the left lower renal pelvis which is unchanged. Electronically Signed: Faustino Ramirez MD at 0:15 EST Tel , Service support , Chest X-Ray 03/20/17 02:26 IMPRESSION: 1. Appropriate positioning of central venous line. 2. No evidence of acute cardiopulmonary disease. Electronically Signed: Faustino Ramirez MD at 4:04 EST Tel , Service support , Gastric Emptying Nuclear Medicine 03/25/17 05:55 IMPRESSION: 1. NORMAL 99m Tc sulfur colloid semi-solid phase (oatmeal) gastric emptying imaging examination. A. There is normal and preserved semi-solid phase gastric emptying compared to normal controls. (Indu pierre al, J Nucl Med Tech 38: 186, 2010). Electronically Signed: Alhaji Parrish DO at 23:07 EST Tel , Service support , Dr. Odonnell, nephrology. Dr. martinez, urology. Operations: None Procedures: Blood transfusion, Central line placement, - - Cystoscopy and placement of bilateral ureteral stents. Summary of Care Provided: This is a 41 years old female patient admitted because of nausea and vomiting, found to have acute cystitis with sepsis, acute renal failure due to bilateral obstructive uropathy, left renal calculus, bilateral hydronephrosis, acute on chronic anemia, contaminated blood culture with staph epidermidis and uncontrolled type 2 diabetes mellitus. #1 acute cystitis/sepsis: Treated with IV Rocephin, IV vancomycin and oral Diflucan. Urine culture revealed mixed growth as well as yeast and she was put and oral Diflucan. She remained afebrile for more than 48 hours. One set of blood culture revealed staph epidermidis which tended to be a contaminant, acute bacteremia ruled out. Patient discharged home in a stable medical condition, discharged on Levaquin 500 mg p.o. every other day and Diflucan 200 mg p.o. every other day, plan to follow-up with urology and nephrology as outpatient. #2 acute renal failure: Secondary to bilateral obstructive uropathy as well as left renal calculus. Status post cystoscopy and placement of bilateral ureteral stents. She was treated with IV fluids and her kidney function did improve but very slowly. Admission creatinine was 4.97 and went down to 3.67 upon discharge. She was kept on Ross catheter and urology recommended to send patient home with Ross catheter but patient is very concerned and she preferred to use intermittent self-catheterization. Ross catheter discontinued and patient was thought how to use self-catheterization, plan to follow-up with urology in 1 week. #3 bilateral obstructive uropathy/left renal calculus: Status post cystoscopy and placement of bilateral ureteral stents. Plan as above. #4 Contaminated blood culture: One set of blood culture revealed staph epidermidis which is a contaminant. Repeat blood culture revealed no growth in 48 hours. #5 acute on chronic anemia: Secondary to the blood loss due to renal calculus and hematuria. Her hemoglobin has been in the range of 7-9 g/dL since beginning of March,. Before that, it was normal. Hemoglobin came down as low as 7.2 g/dL. She received 1 unit of packed RBCs and hemoglobin went up to 8.4 g/dL and remained stable. #6 Newly diagnosed hypertension: Elevated throughout admission Her blood pressure has been Started on metoprolol yesterday. Blood pressure still on the higher side. #7 uncontrolled type 2 diabetes mellitus: Discharged on the same dose of Lantus insulin as well as glimepiride. On March 08, 2017, hemoglobin A1c was 15 and on March 22, 2017, hemoglobin A1c was 10.4. Patient discharged home in a stable medical condition, discharged on oral Diflucan and Levaquin p.o. every other day for 10 days of treatment more, started on metoprolol for newly diagnosed hypertension, order given to repeat CBC and BMP in 5 days, follow-up with PCP in 2 weeks, follow-up with nephrology in 1 week and with urology in 1 week as well. This note was generated with [employer] dictation software. It may contain incorrect words, spelling, and punctuation that were not noted in checking the note before signing. Discharge Activity: Return to Normal Activity Weight Bearing Status: Weight bearing as tolerated Call your doctor if you observe: Fever of 101 or Higher, Shortness of breath, Dizziness, Fainting spells, Chest pain, Increased palpitations (irregular heartbeat), Uncontrolled pain Home Medications: Medications to take at Discharge Duloxetine Hcl [Cymbalta] 60 mg PO DAILY 03/08/17 Glimepiride [Amaryl] 2 mg PO DAILY 30 Days #30 tab 03/13/17 Insulin Glargine,Hum.rec.anlog [Lantus] 22 unit SQ QHS #0 03/13/17 MedroxyPROGESTERone [Depo-Provera] 150 mg IM QMONTH 03/20/17 Fluconazole [Diflucan] 200 mg PO QODAY #5 tab 03/27/17 Levofloxacin [Levaquin] 500 mg PO QODAY #5 tab 03/27/17 Metoprolol Tartrate [Lopressor (beta hellen)] 25 mg PO BID #30 tab 03/27/17 Following Prescrptions Were Given to Patient: Fluconazole [Diflucan] 200 mg PO QODAY #5 tab Levofloxacin [Levaquin] 500 mg PO QODAY #5 tab Metoprolol Tartrate [Lopressor (beta hellen)] 25 mg PO BID #30 tab Primary Care Physician: Jessica Ayala, DANIEL-C [Primary Care Provider] - Please follow up with your Primary Care Physician in: 2 weeks. Please Follow Up With: Betty Odonnell DO When: 1 week. Please Follow Up With: Charan Martinez MD When: 1 week. Patient Instructions: Emptying and Cleaning Your Urinary Catheter Bag, Discharge Instructions for Acute Kidney Injury, ED Catheter Care Ross Disposition: Home Minutes spent on discharge:: 36 Patient Condition:: Stable Meaningful Use Info Meaningful Use Diagnoses (Choose all that apply): None applicable Code Visit Inpatient E&M: 26846 Disch Hosp
[2017-03-27 15:19] VITALS: BP 139/92; PULSE 94; RESP 16; TEMP 37.2; O2SAT 99
[2017-03-27 15:51] LABS: Bedside Glucose 173 mg/dL (70-110)
[2017-03-27 16:03] VITALS: BP 139/92; PULSE 99; RESP 16; TEMP 37.2; O2SAT 96
--- NOTE | 2017-03-29 11:15 | CASEMGMT ---
RN CHAPARRO called patient for a follow-up phone call after admission. Patient did not answer; RN CHAPARRO left message requesting a call back. RN CHAPARRO will await return call from patient. Elie LU, RN-BC, CCM
== END 2017-03-27 16:02 | disposition home or self-care (01) | DRG 463 ==
LOC: ED 23:10 → MS2 03-20 04:12
PROVIDERS: Anesthesiology; Family Medicine; Internal Medicine; Internal Medicine Nephrology; Urology; Emergency Provider Emergency Medicine; Family Provider Nurse Practitioner Family; PCP Nurse Practitioner Family; Visit Provider Hospitalist
PROC: 0TJ98ZZ Inspection of Ureter, Via Natural or Artificial Opening Endoscopic (ICD-10-PCS; CPT 52352; principal; 2017-03-22 12:20)
DX: N30.00 Acute cystitis without hematuria (principal); N17.9 Acute kidney failure, unspecified; E87.2 Acidosis; E11.65 Type 2 diabetes mellitus with hyperglycemia; E66.01 Morbid (severe) obesity due to excess calories; D50.0 Iron deficiency anemia secondary to blood loss (chronic); N13.6 Pyonephrosis; Z68.41 Body mass index [BMI] 40.0-44.9, adult; I25.10 Atherosclerotic heart disease of native coronary artery without angina pectoris; G89.29 Other chronic pain; F32.9 Major depressive disorder, single episode, unspecified; I10 Essential (primary) hypertension; N20.0 Calculus of kidney; Z79.4 Long term (current) use of insulin; Z95.5 Presence of coronary angioplasty implant and graft
CPT/HCPCS: 36415; 71010; 74176; 76000; 78264; 80048; 80069; 80076; 80202; 81001; 82009; 82306; 82570; 82803; 82962; 83036; 83605; 83690; 83735; 83970; 84156; 84484; 84703; 85025; 85027; 85610; 85730; 86850; 86900; 86920; 86922; 87040; 87077; 87086; 87088; 87106; 87186; 93005; 97802; 97803; 99284; A9541; J1756; J7030; J7040; P9016; A4216; C1751; C1769; C2617; J2405

== ENCOUNTER → 2017-05-29 13:35 | Outpatient (CLI) | payer MEDICAID, SELFPAY ==
[2017-05-29 17:12] LABS: Hematocrit 24.8 % (37-47); Hemoglobin 8.3 g/dl (12.0-15.0); Mean Corp Hgb Conc 33.5 g/gl (32-36); Mean Corpuscular Hgb 25.2 pg (27.0-32.0); Mean Corpuscular Volume 75.4 fL (81-99); Platelet Count 341 K/mm3 (150-450); RBC Distribution Width CV 14.8 % (11.6-14.6); RBC Distribution Width SD 39.2 fl (35.1-43.9); Red Blood Count 3.29 M/mm3 (4.2-5.4); White Blood Count 6.6 K/mm3 (4.4-11.0)
[2017-05-29 17:14] LABS: Scan Indicated on CBC? Y/N NO
[2017-05-29 17:29] LABS: BUN 43 mg/dL (7-18); BUN/Creat Ratio 13.1 RATIO (10-20); Chloride 107 mmol/L (98-107); Creatinine, Serum 3.27 mg/dL (0.55-1.02); EST Glomerular Filtration Rate 17 mL/min (>60); Est Glom Filt Rate - Afr Amer 20 mL/min (>60); Ferritin 326 ng/mL (8-252); Glucose 174 mg/dL (74-106); Iron 31 ug/dL (50-170); Iron Binding Capacity,Total 275 ug/dL (250-450); Phosphorus 4.7 mg/dL (2.5-4.9); Potassium 5.1 mmol/L (3.5-5.1); Sodium Level 137 mmol/L (136-145)
[2017-05-29 17:47] LABS: Protein, Urine (Random) 26.6 mg/dL (<11.9); Protein:Creat Ratio 839 mg/g CRE (0-200)
== END ==
PROVIDERS: Family Provider Nurse Practitioner Family; PCP Nurse Practitioner Family; Visit Provider Internal Medicine Nephrology
DX: N39.0 Urinary tract infection, site not specified (principal); E11.22 Type 2 diabetes mellitus with diabetic chronic kidney disease; N18.3 Chronic kidney disease, stage 3 (moderate); E55.9 Vitamin D deficiency, unspecified; D50.9 Iron deficiency anemia, unspecified; N17.9 Acute kidney failure, unspecified
CPT/HCPCS: 36415; 80069; 82306; 82570; 82728; 83540; 83550; 84156; 85027; 87086; 87088

== ENCOUNTER 2017-06-07 22:46 | Emergency (ER) | payer MEDICAID, SELFPAY ==
[2017-06-07 22:47] VITALS: BP 142/84; PULSE 95; RESP 16; TEMP 36.9; O2SAT 100; BMI 42.0
--- NOTE | 2017-06-07 23:06 | CT_ITS ---
STUDY: CT ABDOMEN AND PELVIS WITHOUT CONTRAST REASON FOR EXAM: Female, 42 years old. Flank pain RADIATION DOSAGE (If Supplied By Facility): CTDIvol = ( 21.45 ) mGy, DLP = ( 1066.60 ) mGycm TECHNIQUE: Transaxial images were obtained from the dome of the diaphragm to the symphysis pubis without oral contrast, and without intravenous contrast. Sagittal and coronal images were reconstructed. Individualized dose optimization techniques were used for this CT. COMPARISON: 03/19/2017 FINDINGS: The visualized lung bases are unremarkable. The visualized portions of the heart are within normal limits. Normal liver. Normal gallbladder and extrahepatic biliary system. Normal spleen. Normal pancreas. Normal bilateral adrenal glands. There is moderate bilateral hydronephrosis. There is stones in the LEFT kidney measuring up to 3 mm. NO ureteral stones are identified. There is NO renal mass. Normal visualized stomach. Normal small intestine. Normal colon. The appendix is visualized and appears normal. Normal abdominal aorta. Normal inferior vena cava. Normal retroperitoneum. Urinary bladder is distended measuring 16 x 9.8 cm. The wall is slightly thickened. There is NO bladder mass or stone. Uterus is intact. There is NO ascites or free air, abscess or adenopathy. Normal abdominal wall. Normal osseous structures. CT/Abdomen/Pelvis without Cont IMPRESSION: There is moderate bilateral hydronephrosis. There is stones in the LEFT kidney measuring up to 3 mm. NO ureteral stones are identified. Normal visualized stomach. Normal small intestine. Normal colon. The appendix is visualized and appears normal. Urinary bladder is distended measuring 16 x 9.8 cm. The wall is slightly thickened. There is NO bladder mass or stone. Uterus is intact. There is NO ascites or free air, abscess or adenopathy. Electronically Signed: Troy Hernandez MD at 0:17 EST , Service support ,
--- NOTE | 2017-06-07 23:27 | ED.VISSUMM ---
- ER Visit Summary Date of Service: 06/07/17 Chief Complaint: Flank pain History of Present Illness: The patient is a 42 F progressive bilateral flank pain over the past 5 days. No urinary symptoms. Chronic chills. No fevers. No nausea or vomiting. Denies any radicular symptoms. Saw PCP office yesterday, was purely placed on Bactrim, status post 2 doses. Urine was sent and is pending. Significant history reported with sepsis UTI in March of last year. States she required 3 week hospitalizations followed by nephrology for acute kidney injury. She had bilateral ureteral stents placed by Dr. Martinez. Patient states there is a left kidney stone that was removed inside her kidney and the stents were removed. She was referred to [facility] urology secondary to her healthcare coverage. She saw Dr. Ritchie, states had a ultrasound a week ago as an outpatient. Results were reviewed noted bilateral moderate hydronephrosis, with decrease bladder output. She was referred to Endo urologist at [facility] and has an appointment in the next couple weeks. She did not have any urinary symptoms with her urosepsis in March. She followed up with nephrology, Dr. Odonnell a week ago, creatinine went from 2.7 into the threes. Has an appointment on Saturday. No dialysis. Patient states pain is severe in her flank region. Physical Examination: General: Alert and oriented ?3, no acute distress HEENT: Normocephalic, atraumatic. Moist mucosa membranes Neck: supple, nontender. Cardiovascular: Regular rate and rhythm, no murmurs Respiratory: Normal breath sounds, symmetric, no distress Abdomen: Soft, nontender, nondistended Back: No CVA tenderness bilaterally, no rash. Extremities: Nontender, no edema, pulses intact ?4 Neuro: no focal neurological deficits. Test Results: White blood cell count 6.9. Creatinine 3.17. UA: Leukocytes 500, blood 25, white blood cell count 5200. Urine cultures sent. Hemoglobin 8.9. CT abdomen pelvis bilateral hydro-moderate no renal stones. Emergency Department Course and Treatment: Patient nontoxic, records reviewed noted concerns for urine outlet obstruction. Renal stone protocol initiated. Treated morphine with improvement of symptoms. Labs noted chronic anemia along with stable creatinine from previous labs. Urine did no infection. Urine culture sent. CT scan notes her stable bilateral moderate hydronephrosis. She has a normal renal function with no white count. I will change her over to Cipro for 10 days due to concerns of Bactrim worsening renal function. She will be treated with oxycodone as needed. She will call her urologist on Saturday along with PCP for follow-up. She has a pending Endo urologist appointment on the . She will follow-up with them, return if any worsening symptoms. All questions were answered. Treatment Plan: [] Disposition: Discharge Impression: 1. Bilateral hydronephrosis 2. Urinary tract infection 3. Chronic kidney disease 4. Chronic anemia 5. History of bladder outlet obstruction This note was generated with [employer] software. It may contain incorrect words, spelling, and punctuation that were not noted in review of the chart prior to signing ED Disposition - Plan for ED Patient: Disposition: Home or Assisted Living Chief Complaint: Complaint Diagnosis: Urinary tract infection, Hydronephrosis, Chronic kidney disease Instructions: ED UTI Cystitis Female Prescriptions: Oxycodone HCl/Acetaminophen [Percocet 5/325] 1 tablet PO Q6H PRN PRN 3 Days #12 tablet PRN Reason: Pain Ciprofloxacin [Cipro] 500 mg PO BID #20 tablet Referrals: Melvi Eastman MD [Primary Care Provider] - 3-5 Days Additional Instructions: Stop Bactrim. Start Cipro. Call Dr. Ritchie on Saturday for follow-up along with your PCP.
--- NOTE | 2017-06-07 23:31 | ED.DCSUM_ITS ---
- ER Visit Summary Date of Service: 06/07/17 Chief Complaint: Flank pain History of Present Illness: The patient is a 42 F progressive bilateral flank pain over the past 5 days. No urinary symptoms. Chronic chills. No fevers. No nausea or vomiting. Denies any radicular symptoms. Saw PCP office yesterday , was purely placed on Bactrim, status post 2 doses. Urine was sent and is pending. Significant history reported with sepsis UTI in March of last year. States she required 3 week hospitalizations followed by nephrology for acute kidney injury. She had bilateral ureteral stents placed by Dr. Martinez. Patient states there is a left kidney stone that was removed inside her kidney and the stents were removed. She was referred to [facility] urology secondary to her healthcare coverage. She saw Dr. Ritchie, states had a ultrasound a week ago as an outpatient. Results were reviewed noted bilateral moderate hydronephrosis, with decrease bladder output. She was referred to Endo urologist at [facility] and has an appointment in the next couple weeks. She did not have any urinary symptoms with her urosepsis in March. She followed up with nephrology, Dr. Odonnell a week ago, creatinine went from 2.7 into the threes. Has an appointment on Saturday. No dialysis. Patient states pain is severe in her flank region. Physical Examination: General: Alert and oriented ?3, no acute distress HEENT: Normocephalic, atraumatic. Moist mucosa membranes Neck: supple, nontender. Cardiovascular: Regular rate and rhythm, no murmurs Respiratory: Normal breath sounds, symmetric, no distress Abdomen: Soft, nontender, nondistended Back: No CVA tenderness bilaterally, no rash. Extremities: Nontender, no edema, pulses intact ?4 Neuro: no focal neurological deficits. Test Results: White blood cell count 6.9. Creatinine 3.17. UA: Leukocytes 500 , blood 25, white blood cell count 5200. Urine cultures sent. Hemoglobin 8.9. CT abdomen pelvis bilateral hydro-moderate no renal stones. Emergency Department Course and Treatment: Patient nontoxic, records reviewed noted concerns for urine outlet obstruction. Renal stone protocol initiated. Treated morphine with improvement of symptoms. Labs noted chronic anemia along with stable creatinine from previous labs. Urine did no infection. Urine culture sent. CT scan notes her stable bilateral moderate hydronephrosis. She has a normal renal function with no white count. I will change her over to Cipro for 10 days due to concerns of Bactrim worsening renal function. She will be treated with oxycodone as needed. She will call her urologist on Saturday along with PCP for follow-up. She has a pending Endo urologist appointment on the . She will follow-up with them, return if any worsening symptoms. All questions were answered. Treatment Plan: [] Disposition: Discharge Impression: 1. Bilateral hydronephrosis 2. Urinary tract infection 3. Chronic kidney disease 4. Chronic anemia 5. History of bladder outlet obstruction This note was generated with [employer] software. It may contain incorrect words, spelling, and punctuation that were not noted in review of the chart prior to signing ED Disposition - Plan for ED Patient: Disposition: Home or Assisted Living Chief Complaint: Complaint Diagnosis: Urinary tract infection, Hydronephrosis, Chronic kidney disease Instructions: ED UTI Cystitis Female Prescriptions: Oxycodone HCl/Acetaminophen [Percocet 5/325] 1 tablet PO Q6H PRN PRN 3 Days #12 tablet PRN Reason: Pain Ciprofloxacin [Cipro] 500 mg PO BID #20 tablet Referrals: Melvi Eastman MD [Primary Care Provider] - 3-5 Days Additional Instructions: Stop Bactrim. Start Cipro. Call Dr. Ritchie on Saturday for follow-up along with your PCP.
[2017-06-07] MEDS: 0.9% Normal Saline 1,000 ML 250 ML IV (23:34)
[2017-06-07 23:37] LABS: Absolute Lymphocyte Count 1.38 X10^3/ul (0.83-4.51); Absolute Neutrophil Count 4.3 X10^3/uL (2.0-7.7); Basophil# 0.01 X10^3/uL; Basophil% 0.2 % (0-1); Eosinophil# 0.01 X10^3/uL; Eosinophils% 0.2 % (0-5); Hematocrit 26.9 % (37-47); Hemoglobin 8.9 g/dl (12.0-15.0); Lymphocyte # 1.38 X10^3/ul (4.0); Lymphocyte % 21.7 % (19-41); Mean Corp Hgb Conc 33.1 g/gl (32-36); Mean Corpuscular Hgb 24.7 pg (27.0-32.0); Mean Corpuscular Volume 74.5 fL (81-99); Mean Platelet Vol. 8.4 fl (6.2-12.0); Monocyte# 0.63 X10^3/uL; Monocyte% 9.9 % (0-10); Neutrophil # 4.31 X10^3/uL (2.7-7.7); Neutrophil % 67.8 % (47-70); Platelet Count 297 K/mm3 (150-450); RBC Distribution Width CV 14.9 % (11.6-14.6); RBC Distribution Width SD 40.8 fl (35.1-43.9); Red Blood Count 3.61 M/mm3 (4.2-5.4); White Blood Count 6.4 K/mm3 (4.4-11.0)
[2017-06-07 23:38] LABS: Differential Indicated SCAN CRITERIA MET; POSITIVE COUNT NO; POSITIVE DIFFERENTIAL NO; POSITIVE MORPHOLOGY YES
[2017-06-07 23:46] LABS: Anion Gap 12 (5-15); BUN 48 mg/dL (7-18); BUN/Creat Ratio 15.1 RATIO (10-20); Calcium,Total 9.1 mg/dL (8.5-10.1); Chloride 109 mmol/L (98-107); Creatinine, Serum 3.17 mg/dL (0.55-1.02); EST Glomerular Filtration Rate 17 mL/min (>60); Est Glom Filt Rate - Afr Amer 21 mL/min (>60); Estimated Creatinine Clearance 18.28 ml/min; Glucose 129 mg/dL (74-106); Potassium 4.6 mmol/L (3.5-5.1); Sodium Level 139 mmol/L (136-145)
[2017-06-08 00:20] LABS: Hypochromasia 2+; Microcytosis 1+; Target Cells RARE
[2017-06-08 00:21] LABS: Platelet Estimate ADEQUATE (ADEQ)
[2017-06-08 00:31] LABS: Mucous, Urine 0 SEEN /hpf (<or=2+); Red Blood Cells-Urine 0 SEEN /hpf (0-5)
[2017-06-08 00:33] LABS: Color, Urine Straw (Yellow); Glucose, Dipstick Normal (Normal); Ketone-Dipstick Negative (Negative); Leukocyte Esterase-Dipstick 500 /ul (Negative); Nitrite-Dipstick Negative (Negative); Occult Blood-Urine 25 /ul (Negative); Protein-Dipstick 15 mg/dl (Negative); Specific Gravity, Urine 1.005 (1.002-1.030); Urine Bilirubin Dipstick Negative (Negative); Urine Clarity Cloudy (Clear); Urine Urobilinogen Normal (Normal); Urine pH 6.5 (5.0 - 8.0)
[2017-06-08 00:38] LABS: White Blood Cells 50-100 SEEN /hpf (0-5)
[2017-06-08 00:39] LABS: Bacteria 1+ /hpf (None Seen); Squamous Epithelial Cells - UA 0-5 SEEN /hpf (5-10)
[2017-06-08 00:53] VITALS: BP 117/80; PULSE 64; RESP 18; O2SAT 96
[2017-06-08] MEDS: Ciprofloxacin 500 MG Tablet PO (00:57)
[2017-06-08] MEDS: oxyCODONE 5 MG Tablet PO (00:57)
[2017-06-08 01:18] VITALS: BP 118/80; PULSE 84; RESP 18; O2SAT 100
[2017-06-08 01:31] LABS: Differential Comment SCANNED
== END 2017-06-08 01:19 | disposition home or self-care (01) ==
PROVIDERS: Emergency Provider Emergency Medicine; Family Provider Internal Medicine; PCP Internal Medicine
DX: N13.30 Unspecified hydronephrosis (principal); N39.0 Urinary tract infection, site not specified; N18.9 Chronic kidney disease, unspecified; D63.1 Anemia in chronic kidney disease; Z87.448 Personal history of other diseases of urinary system; I25.10 Atherosclerotic heart disease of native coronary artery without angina pectoris; E11.9 Type 2 diabetes mellitus without complications; Z87.440 Personal history of urinary (tract) infections; Z86.19 Personal history of other infectious and parasitic diseases; Z87.442 Personal history of urinary calculi; Z79.4 Long term (current) use of insulin; Z79.899 Other long term (current) drug therapy
CPT/HCPCS: 74176; 80048; 81001; 85025; 87086; 87088; 96361; 96374; 99284; J7030; A4216

== ENCOUNTER → 2017-07-02 09:42 | Outpatient (CLI) | payer MEDICAID, SELFPAY ==
--- NOTE | 2017-07-02 09:48 | VDUE_ITS ---
Reason For Study: Assess for possible access placement - CKD Right Arm Left Arm Right Cephalic Vein at the wrist Cephalic vein from wrist to antecubital measures .21 x .22 cm. space diminutive - unable to measure. Right Cephalic Vein in the forearm Left Cephalic Vein above antecub measures .18 x .19 cm. measures .18 x .20 cm. Right Cephalic Vein below antecub Left Cephalic Vein at mid bicep measures .28 measures .17 x .16 cm. x .26 cm. Right Cephalic Vein above antecub Left Cephalic Vein at the shoulder measures .37 x .37 cm. measures .37 x .37 cm. Right Cephalic Vein mid bicep measures .40 Basilic vein at origin measures .42 x .45 x .40 cm. cm. Right Cephalic Vein at the shoulder Basilic vein at bicep measures .47 x .48 cm. measures .38 x .35 cm. Basilic vein above antecub measures .27 Right Basilic Vein at the origin x .32 cm. measures .53 x .50 cm. LT Brachial artery - .35 x .42 cm with a Right Basilic Vein mid bicep measures .44 velocity of 85.0 cm/s x .45 cm. LT Radial artery - .18 x .18 cm with a Right Basilic Vein above antecub velocity of 97.9 cm/s. measures .37 x .39 cm. RT Brachial artery - .37 x .39 c, with a velocity 93.8 cm/s RT Radial artery - .17 x .17 cm with a velocity of 75.6 cm/s. < Interpretation Summary Right forearm cephalic vein diminutive Right upper arm cephalic vein adequate Right upper arm basilic vein adequate Right brachial artery good with a small radial artery. Left forearm cephalic vein too small to measure Left upper arm cephalic vein borderline Left upper arm basilic vein adequate Left brachial artery adequate with small left radial artery Ordering Physician: Betty Odonnell Referring Physician: Melvi Eastman M.D. Performed By: Blanca Valdivia RVT
== END ==
PROVIDERS: Family Provider Internal Medicine; PCP Internal Medicine; Visit Provider Internal Medicine Nephrology
DX: Z01.818 Encounter for other preprocedural examination (principal); N18.4 Chronic kidney disease, stage 4 (severe)
CPT/HCPCS: 93970

== ENCOUNTER 2017-07-06 16:57 | Inpatient (IN) | payer MEDICAID, SELFPAY ==
[2017-07-06 16:58] VITALS: BP 151/92; PULSE 121; RESP 18; RESP 19; TEMP 37.9; O2SAT 100; O2SAT 99; BMI 40.7
[2017-07-06] MEDS: 0.9% Normal Saline 1,000 ML 1000 ML IV (17:55)
[2017-07-06] MEDS: Ondansetron 4 MG/2 ML Vial IV (17:55)
[2017-07-06 17:56] LABS: Absolute Lymphocyte Count 0.42 X10^3/ul (0.83-4.51); Basophil# 0.01 X10^3/uL; Basophil% 0.1 % (0-1); Differential Indicated SCAN CRITERIA MET; Hematocrit 31.5 % (37-47); Hemoglobin 10.3 g/dl (12.0-15.0); Lymphocyte # 0.42 X10^3/ul (4.0); Lymphocyte % 5.2 % (19-41); Mean Corp Hgb Conc 32.7 g/gl (32-36); Mean Corpuscular Hgb 24.3 pg (27.0-32.0); Mean Corpuscular Volume 74.3 fL (81-99); Mean Platelet Vol. 8.2 fl (6.2-12.0); Monocyte# 0.56 X10^3/uL; Neutrophil # 7.04 X10^3/uL (2.7-7.7); Neutrophil % 87.6 % (47-70); POSITIVE COUNT NO; POSITIVE DIFFERENTIAL YES; POSITIVE MORPHOLOGY YES; Platelet Count 296 K/mm3 (150-450); RBC Distribution Width CV 14.2 % (11.6-14.6); RBC Distribution Width SD 38.4 fl (35.1-43.9); Red Blood Count 4.24 M/mm3 (4.2-5.4)
[2017-07-06 18:12] LABS: ALB/GLOB Ratio 0.7 RATIO (0.9-2.4); AST(SGOT) 8 U/L (15-37); Alanine Aminotransfer ALT/SGPT 11 U/L (13-56); Albumin, Serum 3.4 g/dL (3.2-5.0); Alkaline Phosphatase 84 U/L (45-117); Anion Gap 11 (5-15); BUN 46 mg/dL (7-18); BUN/Creat Ratio 14.4 RATIO (10-20); Calcium,Total 9.2 mg/dL (8.5-10.1); Chloride 107 mmol/L (98-107); EST Glomerular Filtration Rate 17 mL/min (>60); Est Glom Filt Rate - Afr Amer 20 mL/min (>60); Estimated Creatinine Clearance 18.11 ml/min; Globulin 4.7 g/dL (2.2-4.2); Glucose 210 mg/dL (74-106); Lipase 65 U/L (73-393); Potassium 4.6 mmol/L (3.5-5.1); Protein, Total 8.1 g/dL (6.4-8.2); Sodium Level 140 mmol/L (136-145)
[2017-07-06 18:15] LABS: Lactic Acid 1.2 mmol/L (0.4-2.0)
[2017-07-06] MEDS: 0.9% Normal Saline 1,000 ML 125 ML IV (18:29)
[2017-07-06] MEDS: Dicyclomine 10 MG Capsule 20 MG PO (18:29)
[2017-07-06 18:32] LABS: Mucous, Urine 0 SEEN /hpf (<or=2+)
--- NOTE | 2017-07-06 18:33 | ED.DCSUM_ITS ---
- ER Visit Summary Date of Service: 07/06/17 Chief Complaint: Vomiting and diarrhea History of Present Illness: The patient is a 42 F who presents the emergency department with a 1 day history of vomiting and diarrhea. Patient states her symptoms began last night around 2230 hours and have gradually worsened. Patient states that she has numerous medical problems including chronic kidney disease due to bladder outlet obstruction, diabetes, history of sepsis. The patient states that she is supposed to be self cathing but does not always have successful caths and gets frustrated with it. Numerous family members have had vomiting/diarrhea. Patient states she has been unable to keep anything down. Patient denies any current abdominal pain. Physical Examination: Gen: Well-nourished well-developed obese Head: Normocephalic atraumatic Eyes: Perrl EOMI ENT: TMs clear no rhinorrhea moist mucous membranes Neck: Supple no lymphadenopathy no JVD nontender CVS: Tachycardic but regular rate rhythm no murmurs normal S1-S2 Respiratory: No distress clear to auscultation bilaterally chest nontender Abdomen: Soft nontender nondistended normal bowel sounds no masses Back: Nontender Extremity: Nontender no edema Skin: Normal color no rash Neuro: alert orientated ?3 CN II-XII intact normal strength sensation reflexes gait cerebellar Psych: Normal affect normal mood Test Results: Blood cell count is normal. BUN of 46 creatinine 3.2. Troponin negative lactic acid 1.2. Urinalysis shows greater than 100 white cells 2+ bacteria and 5-[address] the abdomen pelvis demonstrates a distended bladder with dilatation of the ureters. Emergency Department Course and Treatment: Patient received IV fluids and Zofran. She then reported to the nurse that she was experiencing a vague abdominal pain and was given Bentyl. Heart rate is down to 104. Temperature is now 101.4. She will be given Tylenol. Patient will receive IV Rocephin. This was chosen based on her prior recent urine cultures which showed mixed gram -positive adalberto. The urine is nitrate negative and I do wonder how much of the bacteria and white cells represents colonization. Temperature sensitive fully catheter was placed. Dr. Estrada will be admitting for medicine. Impression: 1. Acute gastroenteritis 2. Acute urinary tract infection 3. Sepsis This note was generated with [employer] software. It may contain incorrect words, spelling, and punctuation that were not noted in review of the chart prior to signing ED Disposition - Plan for ED Patient: Disposition: Acute Care Hospital [facility] Chief Complaint: Nausea/Vomiting/Diarrhea
[2017-07-06 18:37] LABS: Color, Urine Yellow (Yellow); Glucose, Dipstick Normal (Normal); Ketone-Dipstick Negative (Negative); Leukocyte Esterase-Dipstick 500 /ul (Negative); Nitrite-Dipstick Negative (Negative); Occult Blood-Urine 50 /ul (Negative); Protein-Dipstick 30 mg/dl (Negative); Urine Bilirubin Dipstick Negative (Negative); Urine Clarity Cloudy (Clear); Urine Urobilinogen Normal (Normal)
[2017-07-06 18:52] LABS: Squamous Epithelial Cells - UA 5-10 SEEN /hpf (5-10); White Blood Cells >100 SEEN /hpf (0-5)
[2017-07-06 18:53] LABS: Bacteria 2+ /hpf (None Seen); Yeast-Urine 1+ /hpf (None Seen)
[2017-07-06 18:55] LABS: Red Blood Cells-Urine 0-5 SEEN /hpf (0-5)
[2017-07-06 19:15] LABS: Anisocytosis RARE; Hypochromasia RARE; Microcytosis RARE; Platelet Estimate ADEQUATE (ADEQ)
[2017-07-06 19:16] VITALS: BP 142/110; PULSE 103; RESP 14; TEMP 38.4; O2SAT 100
--- NOTE | 2017-07-06 19:17 | CT_ITS ---
STUDY: CT ABDOMEN AND PELVIS WITHOUT CONTRAST REASON FOR EXAM: Female, 42 years old. Nausea and vomiting, diarrhea RADIATION DOSAGE (If Supplied By Facility): CTDIvol = ( 19.64 ) mGy, DLP = ( 981.16 ) mGycm TECHNIQUE: Transaxial images were obtained from the lower chest to the upper thighs without oral contrast, and without intravenous contrast. Sagittal and coronal images were reconstructed. Individualized dose optimization techniques were used for this CT. COMPARISON: June 07, 2017 FINDINGS: The visualized lung bases are unremarkable. There is no pleural effusion. The heart is normal in size. There is stable minimal pericardial fluid or thickening. The liver is unremarkable. The gallbladder and biliary ducts are unremarkable. The spleen measures up to 14 cm in the AP plane. The pancreas is unremarkable. The adrenal glands are unremarkable. The right kidney is unremarkable. There is moderate dilatation of the collecting system in the right kidney. Two calcifications are again seen in the lower pole of the left kidney measuring up to 3 mm in size. There is moderate dilatation of the collecting system in the left kidney. The stomach is unremarkable. The small bowel is unremarkable. The colon is unremarkable. The appendix is visualized and appears normal. The aorta and branch vessels are unremarkable. The IVC is unremarkable. There are prominent lymph nodes in the retroperitoneum and mesentery. There is no free fluid in the abdomen. The bladder is distended with minimal wall thickening. The uterus is normal in size and appearance. There are no abnormal masses in the adnexal regions. There are small phleboliths scattered in the lower pelvis. The soft tissues are unremarkable. There are mild degenerative changes in the visualized spine. CT/Abdomen/Pelvis without Cont IMPRESSION: There are no acute bowel abnormalities. There is no ascites, free air or significant inflammation. There are nonspecific prominent lymph nodes in the retroperitoneum and mesentery, likely reactive. Again seen is moderate hydronephrosis bilaterally and distention of the urinary bladder. The spleen is prominent in size without a discrete mass. Electronically Signed: Jaye Montalvo MD at 21:30 EDT Tel Direct: [phone], Service support ,
[2017-07-06] MEDS: Acetaminophen 500 MG Tablet 1000 MG PO (19:42)
--- NOTE | 2017-07-06 20:40 | PCM.HP.STD ---
Problem List (1) Morbid obesity Status: Chronic (2) HTN (hypertension) Status: Chronic Qualifiers: Hypertension type: essential hypertension Qualified Code(s): I10 - Essential (primary) hypertension (3) Gastroenteritis Status: Acute (4) Bilateral hydronephrosis Status: Chronic (5) Iron deficiency anemia Status: Chronic Qualifiers: Iron deficiency anemia type: unspecified iron deficiency Qualified Code(s): D50.9 - Iron deficiency anemia, unspecified (6) Type II diabetes mellitus Status: Chronic Qualifiers: Diabetes mellitus prison insulin use: unspecified prison insulin use status Diabetes mellitus complication status: with unspecified complications Qualified Code(s): E11.8 - Type 2 diabetes mellitus with unspecified complications (7) Coronary artery disease Status: Chronic Qualifiers: Coronary Disease-Associated Artery/Lesion type: unspecified vessel or lesion type [place] vs. transplanted heart: unspecified whether [place] or transplanted heart Associated angina: angina presence unspecified Qualified Code(s): I25.10 - Atherosclerotic heart disease of [place] coronary artery without angina pectoris (8) Chronic low back pain Status: Chronic Qualifiers: Back pain laterality: unspecified Sciatica presence: unspecified whether sciatica present Qualified Code(s): M54.5 - Low back pain; G89.29 - Other chronic pain (9) UTI (urinary tract infection) Status: Acute Qualifiers: Urinary tract infection type: acute cystitis (10) Hydroureter Status: Chronic (11) Bladder outlet obstruction Status: Chronic History of Present Illness Date of Admission: 07/06/17 Chief Complaint: Nausea, emesis, diarrhea, low grade fever The patient is a 42 y/o F w/ PMHx: CAD s/p PCI, Diabetes mellitus type II, HTN, Morbid Obesity, Chronic Back Pain, History of 03/2017 BL Obstructive Uropathy/calculi w/ BL stent placements and removal w/ Diabetic Neurogenic Bladder w/ medical encouragement to straight catheterize q 8 hours w/ improving renal function since initial onset, Fe Deficiency Anemia who presents to the the [facility] ED on 07/06/17 with ongoing diarrhea (loose brown stools), nausea and intermittent emesis with inability to keep fluid/food down with low grade temperature and concurrent abdominal discomfort w/ sensation of frequent need to stool nearing ~ 24 hours. In the ED work-up included T 101.2, HR 121-->103, BP 151/92-->142/110, RR 19-->14, 100% on RA, CBC w/ WBC 8, Hgb 10.3, Plts 296 without marked shift, CMP w/ BUN/Cr 46/3.20, glucose 210, UA notable, UCx and Bld Cx pending, CT A/P without contrast pending per ED upon evaluation. In the ED patient administered NS, zofran, bentyl, rocephin, tylenol. Past Medical History Past Medical History (Chronic Problems): Chronic Problems (Last Updated 04/29/17 @ 09:53 by Catherine Barboza) Morbid obesity (Chronic) HTN (hypertension) (Chronic) Bilateral hydronephrosis (Chronic) Iron deficiency anemia (Chronic) Type II diabetes mellitus (Chronic) Coronary artery disease (Chronic) Chronic low back pain (Chronic) Hydroureter (Chronic) Hydronephrosis (Chronic) Bladder outlet obstruction (Chronic) Allergies ciprofloxacin [From Cipro] Adverse Reaction (Verified 07/06/17 16:58) Nausea contrast dye Allergy (Severe, Uncoded 06/07/17 22:57) Unknown Home Medications: Ambulatory Orders Medication Instructions Recorded Duloxetine Hcl [Cymbalta] 60 mg PO DAILY 03/08/17 Ergocalciferol [Vitamin D] 50,000 unit PO WE 04/18/17 Ferrous Sulfate [Iron] 325 mg PO BID 04/18/17 Insulin Glargine,Hum.rec.anlog 25 unit SQ QHS 04/18/17 [Basaglar Kwikpen U-100] Oxycodone HCl/Acetaminophen 1 tablet PO Q6H PRN PRN 3 Days #12 06/08/17 [Percocet 5/325] tablet Surgical History: - - PCI, BL Ureteral stent placements and follow-up removal. 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 Denies: Chills, Weight Change HEENT: Denies: Head Aches, Sinus Congestion, Sinus Drainage Cardiovascular: Denies: Chest Pain, Palpitations Respiratory: Denies: Cough, Shortness of breath at rest, Sputum production Gastrointestinal: Reports: Abdominal Pain, Diarrhea, Nausea, Vomiting Genitourinary: Reports: Retention. Denies: Dysuria Musculoskeletal: Denies: Joint Pain, Joint Tenderness Skin: Denies: Rash, Wounds Neurological: Denies: Numbness, Tingling, Focal weakness Psychiatric: Reports: Anxiety, Depression. Denies: Homicidal Ideations, Suicidal Ideations Hematologic/ Lymphatic: Denies: Easy Bruising, Easy Bleeding VTE Information - Inpt Only VTE Present on Admission: No VTE Mechan Device Prophylaxis: SCD's VTE Pharm Prophylaxis ordered?: Yes Patient Problems: Active and Suspected Problems (Last Updated 04/29/17 @ 09:53 by Catherine Barboza) Gastroenteritis (Acute) Subjective: Seated upright in the ED bed, fatigued appearing. Objective: Physical Examination: General: awake, alert, oriented x 3 and cooperative, seated upright in the ED bed, NAD, fatigued appearance. Skin: normal color, turgor, no icterus, cyanosis. HEENT: AT/NC, EOMI, PERRLA, dry MM, no carotid bruits or JVD noted. Lungs: CTA bilaterally, moderate effort, mild decrease BL bases, no rales, ronchi or wheezing. Heart: Regular rate and rhythm; no gallop, rub audible. Abdomen: soft, morbidly obese, NTTP, ND, mildly hyperactive BS, no HSM; however, habitus makes examination difficult. Extremities: no cyanosis, clubbing, or edema. Neurological: patient awake, alert, oriented x 3; cognitive function intact; pupils equally reactive to light and accomodation; cranial nerves II-XII grossly normal, moving all 4 extremities, no focal deficits, strength moderately to severely globally decreased secondary to acute presentation. Psychiatric: affect appears fatigued, no acute evidence of depressive or anxiety feelings. - Physical Exam Vital Signs Temp Pulse Resp BP Pulse Ox 101.2 F H 103 H 14 142/110 H 100 07/06/17 19:16 07/06/17 19:16 07/06/17 19:16 07/06/17 19:16 07/06/17 19:16 Oxygen Delivery Method Room Air Weight: 222 lb 14.197 oz Body Mass Index (BMI) 40.7 Laboratory Tests Past 24 Hrs 07/06/17 07/06/17 07/06/17 17:40 17:40 17:40 WBC 8.0 RBC 4.24 Hgb 10.3 L Hct 31.5 L MCV 74.3 L MCH 24.3 L MCHC 32.7 RDW 14.2 RDW Differential 38.4 Plt Count 296 MPV 8.2 Immature Gran % (Auto) 0.100 Neut % (Auto) 87.6 H Lymph % (Auto) 5.2 L [place] % (Auto) 7.0 Eos % (Auto) 0.0 Baso % (Auto) 0.1 Absolute Neuts (auto) 7.0 Absolute Lymphs (auto) 0.42 L Total Counted Not Reportable Differential Comment SEE COMMENT Platelet Estimate ADEQUATE Hypochromasia RARE Anisocytosis RARE Microcytosis RARE Sodium 140 Potassium 4.6 Chloride 107 Carbon Dioxide 22.0 Anion Gap 11 BUN 46 H Creatinine 3.20 H Estim Creat Clear Calc 18.11 Est GFR (MDRD) Af Amer 20 L Est GFR (MDRD) Non-Af 17 L BUN/Creatinine Ratio 14.4 Glucose 210 H Lactic Acid 1.2 Calcium 9.2 Total Bilirubin 0.50 AST 8 L ALT 11 L Alkaline Phosphatase 84 Troponin I < 0.02 Total Protein 8.1 Albumin 3.4 Globulin 4.7 H Albumin/Globulin Ratio 0.7 L Lipase 65 L Urine Color Urine Clarity Urine pH Ur Specific [place] Urine Protein Urine Glucose (UA) Urine Ketones Urine Occult Blood Urine Nitrite Urine Bilirubin Urine Urobilinogen Ur Leukocyte Esterase Urine RBC Urine WBC Ur Squamous Epith Cells Urine Bacteria Urine Mucus Urine Yeast 07/06/17 18:25 WBC RBC Hgb Hct MCV MCH MCHC RDW RDW Differential Plt Count MPV Immature Gran % (Auto) Neut % (Auto) Lymph % (Auto) [place] % (Auto) Eos % (Auto) Baso % (Auto) Absolute Neuts (auto) Absolute Lymphs (auto) Total Counted Differential Comment Platelet Estimate Hypochromasia Anisocytosis Microcytosis Sodium Potassium Chloride Carbon Dioxide Anion Gap BUN Creatinine Estim Creat Clear Calc Est GFR (MDRD) Af Amer Est GFR (MDRD) Non-Af BUN/Creatinine Ratio Glucose Lactic Acid Calcium Total Bilirubin AST ALT Alkaline Phosphatase Troponin I Total Protein Albumin Globulin Albumin/Globulin Ratio Lipase Urine Color Yellow Urine Clarity Cloudy Urine pH 6.0 Ur Specific [place] 1.010 Urine Protein 30 H Urine Glucose (UA) Normal Urine Ketones Negative Urine Occult Blood 50 H Urine Nitrite Negative Urine Bilirubin Negative Urine Urobilinogen Normal Ur Leukocyte Esterase 500 H Urine RBC 0-5 SEEN Urine WBC >100 SEEN Ur Squamous Epith Cells 5-10 SEEN Urine Bacteria 2+ Urine Mucus 0 SEEN Urine Yeast 1+ Assessment/Plan Active and Suspected Problems (Last Updated 04/29/17 @ 09:53 by Catherine Barboza) Gastroenteritis (Acute) The patient is a 42 y/o F w/ PMHx: CAD s/p PCI, Diabetes mellitus type II, HTN, Morbid Obesity, Chronic Back Pain, History of 03/2017 BL Obstructive Uropathy/calculi w/ BL stent placements and removal w/ Diabetic Neurogenic Bladder w/ medical encouragement to straight catheterize q 8 hours w/ improving renal function since initial onset, Fe Deficiency Anemia who presents to the the [facility] ED on 07/06/17 with ongoing diarrhea (loose brown stools), nausea and intermittent emesis with inability to keep fluid/food down with low grade temperature and concurrent abdominal discomfort w/ sensation of frequent need to stool nearing ~ 24 hours. (1) ? N/V/D, Possible Acute Viral Gastroenteritis versus as noted #2: Will admit to MS, continue hydration, will obtain c diff, stool cx if recurrent stools, repeat AM CBC. Anti-emetics, pain regimen PRN. Abx as noted for #2, pending CT A/P as noted upon admission. If remarkable may need to alter abx regimen as noted for #2. (2) Possible ? Acute Complicated Urinary Tract Infection versus Colonization: UA upon ED evaluation ? remarkable (LE, 2+ bacteria, elevated WBC but SEC 5-10, pending UCx, continue IVFs given nausea/emesis presentation, monitor I/Os, continue IV Rocephin w/ transition as able pending UCx if appropriate pending sensitivities and speciation. Bld cx x 2 obtained in the ED. Straight catheterization q 8 hours. (3) History of 03/2017 BL Obstructive Uropathy/calculi w/ BL stent placements and removal w/ Diabetic Neurogenic Bladder: Admission BUN/Cr 46/3.20. Patient following w/ Nephrology Betty Odonnell, ongoing medical encouragement to straight catheterize q 8 hours which patient has not been following secondary to discomfort w/ intervention, planned upcoming vein mapping and fistula creation per Dr. Patricia. Patient renal function improving since initial onset. (4) CAD: s/p PCI remotely. Will continue home regimen asa, not on statin, was on BB prior, not listed currently, given elevated BP will add back and underlying history. (5) Diabetes mellitus type II: Admission glucose 210, hold oral home regimen, continue home insulin regimen, start with clears and ADAT to ADA diet, accu checks w/ ISS. Nutrition consulted for education. (6) Hypertension: BP elevated, not on regimen currently per ED list, was on BB prior, not listed currently, given elevated BP will add back and underlying history, PRN hydralazine. (7) Morbid Obesity: Weight loss and lifestyle changes encouraged, nutrition consulted. (8) Fe Deficiency Anemia: Admission Hgb 10.3, improved from prior, 7-8 Hgb range since 03/2017, repeat CBC in AM. (9) Anxiety and Depression: Continue home cymbalta regimen. (10) DVT Prophylaxis: SCDs, heparin. Code Visit Inpatient E&M: 71146 Init Hosp L3
--- NOTE | 2017-07-06 21:00 | HP.PCM_ITS ---
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 transplanted heart: unspecified whether [place] or transplanted heart Associated angina: angina presence unspecified Qualified Code(s): I25.10 - Atherosclerotic heart disease of [place] coronary artery without angina pectoris (8) Chronic low back pain Status: Chronic Qualifiers: Back pain laterality: unspecified Sciatica presence: unspecified whether sciatica present Qualified Code(s): M54.5 - Low back pain; G89.29 - Other chronic pain (9) UTI (urinary tract infection) Status: Acute Qualifiers: Urinary tract infection type: acute cystitis (10) Hydroureter Status: Chronic (11) Bladder outlet obstruction Status: Chronic History of Present Illness Date of Admission: 07/06/17 Chief Complaint: Nausea, emesis, diarrhea, low grade fever The patient is a 42 y/o F w/ PMHx: CAD s/p PCI, Diabetes mellitus type II, HTN, Morbid Obesity, Chronic Back Pain, History of 03/2017 BL Obstructive Uropathy/ calculi w/ BL stent placements and removal w/ Diabetic Neurogenic Bladder w/ medical encouragement to straight catheterize q 8 hours w/ improving renal function since initial onset, Fe Deficiency Anemia who presents to the the [facility] ED on 07/06/17 with ongoing diarrhea (loose brown stools), nausea and intermittent emesis with inability to keep fluid/food down with low grade temperature and concurrent abdominal discomfort w/ sensation of frequent need to stool nearing ~ 24 hours. In the ED work-up included T 101.2, HR 121-->103, BP 151/92-->142/110, RR 19-->14, 100% on RA, CBC w/ WBC 8, Hgb 10.3, Plts 296 without marked shift, CMP w/ BUN/Cr 46/3.20, glucose 210, UA notable, UCx and Bld Cx pending, CT A/P without contrast pending per ED upon evaluation. In the ED patient administered NS, zofran, bentyl, rocephin, tylenol. Past Medical History Past Medical History (Chronic Problems): Chronic Problems (Last Updated 04/29/17 @ 09:53 by Catherine Barboza) Morbid obesity (Chronic) HTN (hypertension) (Chronic) Bilateral hydronephrosis (Chronic) Iron deficiency anemia (Chronic) Type II diabetes mellitus (Chronic) Coronary artery disease (Chronic) Chronic low back pain (Chronic) Hydroureter (Chronic) Hydronephrosis (Chronic) Bladder outlet obstruction (Chronic) Allergies ciprofloxacin [From Cipro] Adverse Reaction (Verified 07/06/17 16:58) Nausea contrast dye Allergy (Severe, Uncoded 06/07/17 22:57) Unknown Home Medications: Ambulatory Orders Medication Instructions Recorded Duloxetine Hcl [Cymbalta] 60 mg PO DAILY 03/08/17 Ergocalciferol [Vitamin D] 50,000 unit PO WE 04/18/17 Ferrous Sulfate [Iron] 325 mg PO BID 04/18/17 Insulin Glargine,Hum.rec.anlog 25 unit SQ QHS 04/18/17 [Basaglar Kwikpen U-100] Oxycodone HCl/Acetaminophen 1 tablet PO Q6H PRN PRN 3 Days #12 06/08/17 [Percocet 5/325] tablet Surgical History: - - PCI, BL Ureteral stent placements and follow-up removal. Psychiatric History: No pertinent psych hx [employer]IST[employer] History: No pertinent [employer] history Lives: Alone Smoking Status: Never smoker Tobacco Use: Non-smoker Alcohol: None Drugs: None - *Family History Maternal History Items: Unknown Paternal History Items: Unknown Review of Systems Constitutional: Reports: Anorexia, Fever, Malaise, Weakness, Fatigue. Denies: Chills, Weight Change HEENT: Denies: Head Aches, Sinus Congestion, Sinus Drainage Cardiovascular: Denies: Chest Pain, Palpitations Respiratory: Denies: Cough, Shortness of breath at rest, Sputum production Gastrointestinal: Reports: Abdominal Pain, Diarrhea, Nausea, Vomiting Genitourinary: Reports: Retention. Denies: Dysuria Musculoskeletal: Denies: Joint Pain, Joint Tenderness Skin: Denies: Rash, Wounds Neurological: Denies: Numbness, Tingling, Focal weakness Psychiatric: Reports: Anxiety, Depression. Denies: Homicidal Ideations, Suicidal Ideations Hematologic/ Lymphatic: Denies: Easy Bruising, Easy Bleeding VTE Information - Inpt Only VTE Present on Admission: No VTE Mechan Device Prophylaxis: SCD's VTE Pharm Prophylaxis ordered?: Yes Patient Problems: Active and Suspected Problems (Last Updated 04/29/17 @ 09:53 by Catherine Barboza) Gastroenteritis (Acute) Subjective: Seated upright in the ED bed, fatigued appearing. Objective: Physical Examination: General: awake, alert, oriented x 3 and cooperative, seated upright in the ED bed, NAD, fatigued appearance. Skin: normal color, turgor, no icterus, cyanosis. HEENT: AT/NC, EOMI, PERRLA, dry MM, no carotid bruits or JVD noted. Lungs: CTA bilaterally, moderate effort, mild decrease BL bases, no rales, ronchi or wheezing. Heart: Regular rate and rhythm; no gallop, rub audible. Abdomen: soft, morbidly obese, NTTP, ND, mildly hyperactive BS, no HSM; however , habitus makes examination difficult. Extremities: no cyanosis, clubbing, or edema. Neurological: patient awake, alert, oriented x 3; cognitive function intact; pupils equally reactive to light and accomodation; cranial nerves II-XII grossly normal, moving all 4 extremities, no focal deficits, strength moderately to severely globally decreased secondary to acute presentation. Psychiatric: affect appears fatigued, no acute evidence of depressive or anxiety feelings. - Physical Exam Vital Signs Temp Pulse Resp BP Pulse Ox 101.2 F H 103 H 14 142/110 H 100 07/06/17 19:16 07/06/17 19:16 07/06/17 19:16 07/06/17 19:16 07/06/17 19:16 Oxygen Delivery Method Room Air Weight: 222 lb 14.197 oz Body Mass Index (BMI) 40.7 Laboratory Tests Past 24 Hrs 07/06/17 07/06/17 07/06/17 17:40 17:40 17:40 WBC 8.0 RBC 4.24 Hgb 10.3 L Hct 31.5 L MCV 74.3 L MCH 24.3 L MCHC 32.7 RDW 14.2 RDW Differential 38.4 Plt Count 296 MPV 8.2 Immature Gran % (Auto) 0.100 Neut % (Auto) 87.6 H Lymph % (Auto) 5.2 L [place] % (Auto) 7.0 Eos % (Auto) 0.0 Baso % (Auto) 0.1 Absolute Neuts (auto) 7.0 Absolute Lymphs (auto) 0.42 L Total Counted Not Reportable Differential Comment SEE COMMENT Platelet Estimate ADEQUATE Hypochromasia RARE Anisocytosis RARE Microcytosis RARE Sodium 140 Potassium 4.6 Chloride 107 Carbon Dioxide 22.0 Anion Gap 11 BUN 46 H Creatinine 3.20 H Estim Creat Clear Calc 18.11 Est GFR (MDRD) Af Amer 20 L Est GFR (MDRD) Non-Af 17 L BUN/Creatinine Ratio 14.4 Glucose 210 H Lactic Acid 1.2 Calcium 9.2 Total Bilirubin 0.50 AST 8 L ALT 11 L Alkaline Phosphatase 84 Troponin I < 0.02 Total Protein 8.1 Albumin 3.4 Globulin 4.7 H Albumin/Globulin Ratio 0.7 L Lipase 65 L Urine Color Urine Clarity Urine pH Ur Specific [place] Urine Protein Urine Glucose (UA) Urine Ketones Urine Occult Blood Urine Nitrite Urine Bilirubin Urine Urobilinogen Ur Leukocyte Esterase Urine RBC Urine WBC Ur Squamous Epith Cells Urine Bacteria Urine Mucus Urine Yeast 07/06/17 18:25 WBC RBC Hgb Hct MCV MCH MCHC RDW RDW Differential Plt Count MPV Immature Gran % (Auto) Neut % (Auto) Lymph % (Auto) [place] % (Auto) Eos % (Auto) Baso % (Auto) Absolute Neuts (auto) Absolute Lymphs (auto) Total Counted Differential Comment Platelet Estimate Hypochromasia Anisocytosis Microcytosis Sodium Potassium Chloride Carbon Dioxide Anion Gap BUN Creatinine Estim Creat Clear Calc Est GFR (MDRD) Af Amer Est GFR (MDRD) Non-Af BUN/Creatinine Ratio Glucose Lactic Acid Calcium Total Bilirubin AST ALT Alkaline Phosphatase Troponin I Total Protein Albumin Globulin Albumin/Globulin Ratio Lipase Urine Color Yellow Urine Clarity Cloudy Urine pH 6.0 Ur Specific [place] 1.010 Urine Protein 30 H Urine Glucose (UA) Normal Urine Ketones Negative Urine Occult Blood 50 H Urine Nitrite Negative Urine Bilirubin Negative Urine Urobilinogen Normal Ur Leukocyte Esterase 500 H Urine RBC 0-5 SEEN Urine WBC >100 SEEN Ur Squamous Epith Cells 5-10 SEEN Urine Bacteria 2+ Urine Mucus 0 SEEN Urine Yeast 1+ Assessment/Plan Active and Suspected Problems (Last Updated 04/29/17 @ 09:53 by Catherine Barboza) Gastroenteritis (Acute) The patient is a 42 y/o F w/ PMHx: CAD s/p PCI, Diabetes mellitus type II, HTN, Morbid Obesity, Chronic Back Pain, History of 03/2017 BL Obstructive Uropathy/ calculi w/ BL stent placements and removal w/ Diabetic Neurogenic Bladder w/ medical encouragement to straight catheterize q 8 hours w/ improving renal function since initial onset, Fe Deficiency Anemia who presents to the the [facility] ED on 07/06/17 with ongoing diarrhea (loose brown stools), nausea and intermittent emesis with inability to keep fluid/food down with low grade temperature and concurrent abdominal discomfort w/ sensation of frequent need to stool nearing ~ 24 hours. (1) ? N/V/D, Possible Acute Viral Gastroenteritis versus as noted #2: Will admit to MS, continue hydration, will obtain c diff, stool cx if recurrent stools, repeat AM CBC. Anti-emetics, pain regimen PRN. Abx as noted for #2, pending CT A/P as noted upon admission. If remarkable may need to alter abx regimen as noted for #2. (2) Possible ? Acute Complicated Urinary Tract Infection versus Colonization: UA upon ED evaluation ? remarkable (LE, 2+ bacteria, elevated WBC but SEC 5-10, pending UCx, continue IVFs given nausea/emesis presentation, monitor I/Os, continue IV Rocephin w/ transition as able pending UCx if appropriate pending sensitivities and speciation. Bld cx x 2 obtained in the ED. Straight catheterization q 8 hours. (3) History of 03/2017 BL Obstructive Uropathy/calculi w/ BL stent placements and removal w/ Diabetic Neurogenic Bladder: Admission BUN/Cr 46/3.20. Patient following w/ Nephrology Betty Odonnell, ongoing medical encouragement to straight catheterize q 8 hours which patient has not been following secondary to discomfort w/ intervention, planned upcoming vein mapping and fistula creation per Dr. Patricia. Patient renal function improving since initial onset. (4) CAD: s/p PCI remotely. Will continue home regimen asa, not on statin, was on BB prior, not listed currently, given elevated BP will add back and underlying history. (5) Diabetes mellitus type II: Admission glucose 210, hold oral home regimen, continue home insulin regimen, start with clears and ADAT to ADA diet, accu checks w/ ISS. Nutrition consulted for education. (6) Hypertension: BP elevated, not on regimen currently per ED list, was on BB prior, not listed currently, given elevated BP will add back and underlying history, PRN hydralazine. (7) Morbid Obesity: Weight loss and lifestyle changes encouraged, nutrition consulted. (8) Fe Deficiency Anemia: Admission Hgb 10.3, improved from prior, 7-8 Hgb range since 03/2017, repeat CBC in AM. (9) Anxiety and Depression: Continue home cymbalta regimen. (10) DVT Prophylaxis: SCDs, heparin. Code Visit Inpatient E&M: 24778 Init Hosp L3
[2017-07-06 21:01] VITALS: BP 165/106; PULSE 98; RESP 11; TEMP 38.4; O2SAT 98
[2017-07-06 21:43] VITALS: BP 165/106; PULSE 95; RESP 23; O2SAT 95
[2017-07-06 22:12] VITALS: BP 138/92; PULSE 95; RESP 16; TEMP 37.2; O2SAT 99
[2017-07-06 22:19] VITALS: BMI 40.7
[2017-07-06 22:23] VITALS: BMI 40.8
[2017-07-06 22:26] LABS: Magnesium 1.8 mg/dL (1.6-2.6)
[2017-07-06 23:03] VITALS: PULSE 95
[2017-07-06] MEDS: Ferrous Sulfate 325 MG Tablet PO (23:03)
[2017-07-06] MEDS: Pantoprazole Sodium 20 MG Tablet PO (23:03)
[2017-07-06] MEDS: Metoprolol Tartrate 25 MG Tablet PO (23:03)
[2017-07-06 23:10] LABS: Bedside Glucose 178 mg/dL (70-110)
[2017-07-06] MEDS: Morphine 2 MG/ML Syringe IV (23:17)
[2017-07-07] VITALS (7 sets, daily range): BP systolic 139–146; BP diastolic 91–97; PULSE 75–84; RESP 18; TEMP 36.7–37.1; O2SAT 99–100
[2017-07-07] MEDS: Ondansetron 4 MG/2 ML Vial IV (04:03)
[2017-07-07] MEDS: Morphine 2 MG/ML Syringe IV ×2 (04:04→20:24)
[2017-07-07] MEDS: 0.9% Normal Saline 1,000 ML 125 ML IV ×3 (04:11→22:02)
[2017-07-07 06:51] LABS: Bedside Glucose 112 mg/dL (70-110)
[2017-07-07] MEDS: Dicyclomine 10 MG Capsule 20 MG PO ×3 (06:53→16:50)
[2017-07-07] MEDS: Metoprolol Tartrate 25 MG Tablet PO ×2 (07:36→21:27)
[2017-07-07 07:37] LABS: Absolute Lymphocyte Count 1.08 X10^3/ul (0.83-4.51); Absolute Neutrophil Count 2.9 X10^3/uL (2.0-7.7); Basophil# 0.01 X10^3/uL; Basophil% 0.2 % (0-1); Hematocrit 25.8 % (37-47); Hemoglobin 8.6 g/dl (12.0-15.0); Lymphocyte # 1.08 X10^3/ul (4.0); Lymphocyte % 23.5 % (19-41); Mean Corp Hgb Conc 33.3 g/gl (32-36); Mean Corpuscular Hgb 24.6 pg (27.0-32.0); Mean Corpuscular Volume 73.7 fL (81-99); Mean Platelet Vol. 8.8 fl (6.2-12.0); Monocyte# 0.59 X10^3/uL; Monocyte% 12.8 % (0-10); Neutrophil % 63.1 % (47-70); Platelet Count 301 K/mm3 (150-450); RBC Distribution Width CV 13.6 % (11.6-14.6); RBC Distribution Width SD 35.6 fl (35.1-43.9); White Blood Count 4.6 K/mm3 (4.4-11.0)
[2017-07-07] MEDS: Pantoprazole Sodium 20 MG Tablet PO ×2 (07:37→21:27)
[2017-07-07] MEDS: Aspirin E.C. 81 MG Tablet PO (07:37)
[2017-07-07] MEDS: Ferrous Sulfate 325 MG Tablet PO ×2 (07:37→16:50)
[2017-07-07] MEDS: DULoxetine Hcl 60 MG Capsule PO (07:37)
[2017-07-07] MEDS: Enoxaparin 30 MG/0.3 ML Syringe SC (07:37)
[2017-07-07 07:38] LABS: Differential Indicated SCAN CRITERIA MET; POSITIVE COUNT NO; POSITIVE DIFFERENTIAL NO; POSITIVE MORPHOLOGY YES
[2017-07-07 07:39] LABS: Anion Gap 11 (5-15); BUN 40 mg/dL (7-18); BUN/Creat Ratio 14.5 RATIO (10-20); Calcium,Total 8.3 mg/dL (8.5-10.1); Chloride 111 mmol/L (98-107); Creatinine, Serum 2.75 mg/dL (0.55-1.02); EST Glomerular Filtration Rate 20 mL/min (>60); Est Glom Filt Rate - Afr Amer 24 mL/min (>60); Estimated Creatinine Clearance 21.08 ml/min; Glucose 102 mg/dL (74-106); Potassium 4.2 mmol/L (3.5-5.1); Sodium Level 142 mmol/L (136-145)
[2017-07-07 08:20] LABS: Hypochromasia 1+
--- NOTE | 2017-07-07 09:49 | PCM.PN.HOSP ---
Patient Problems: Active and Suspected Problems (Last Updated 04/29/17 @ 09:53 by Catherine Barboza) Gastroenteritis (Acute) Subjective: Patient is a 42 y/o female with a PMH of DM2 with neuropathy and neurogenic bladder, HTN, CAD s/p PCI, bilateral obstructive uropathy due to renal calculi s/p bilateral stent placement (removed 04/18) and iron deficiency anemia. She was admitted on 07/06/17 with a complaint of diarrhea, nausea and vomiting. She had assocaited low grade fevr and abdominal discomfort whilst at home. She was supposed to do straight caths at home q8 to relieve neurogenic bladder but had not been very compliant. She is being managed for UTI and acute gastroenteritis. She is on IV rocephin, IVF, zofran and tyelenol. Patient seen and examined this morning. She felt better and had no complaints. She denied fever, chills, cough, chest pain, SOB or abdominal pain. She denied frequency of urination, dysuria or offensive smell to urine. She hasnt vomited or had an episode of diarrhea since admission. Review of systems is otherwise negative. Vitals/I&O's: Vital Signs Temp Pulse Resp BP Pulse Ox 98.1 F 76 18 139/92 H 99 07/07/17 07:30 07/07/17 07:36 07/07/17 07:30 07/07/17 07:30 07/07/17 07:45 Oxygen Delivery Method Room Air Weight: 222 lb 14.197 oz Body Mass Index (BMI) 40.7 Intake and Output for Last 24 Hours 07/05/17 07/06/17 07/07/17 23:59 23:59 23:59 Intake Total 2011 Output Total 1725 / 1725 Balance 287 / 287 General: Alert, Oriented x3, Cooperative, No apparent distress HEENT: Atraumatic, PERRLA, EOMI, Normocephalic Oral: Moist Mucosa Neck: Supple, No JVD, Negative Carotid Bruits Lungs: Clear to auscultation, Normal air movement, No rhonchi, No wheeze, No rales Cardiovascular: Regular rate, Regular Rhythm, Normal S1, Normal S2, No murmurs Abdomen: Bowel Sounds Present, Soft, Non Tender, Non-Distended, No Hepato-splenomegaly Extremities: No cyanosis, No edema, Capillary Refill Less than 3 Seconds Skin: No rashes, No breakdown Musculoskeletal: No Tenderness to Palpation of Joints or Extremities Lymphatic: No Cervical, Supraclavicular, or Inguinal Adenopathy Neurological: Cranial nerves II-XII grossly intact, Neuro grossly intact, Motor Exam 5/5 strength throughout Psych/Mental Status: Normal Affect, Appropriate, Alert and oriented to time, place, person, mood and affect Laboratory Results 07/06/17 23:01: POC Glucose 178 H 07/07/17 06:46: POC Glucose 112 H 07/07/17 07:00: WBC 4.6, RBC 3.50 L, Hgb 8.6 L, Hct 25.8 L, MCV 73.7 L, MCH 24.6 L, MCHC 33.3, RDW 13.6, RDW Differential 35.6, Plt Count 301, MPV 8.8, Immature Gran % (Auto) 0.400, Neut % (Auto) 63.1, Lymph % (Auto) 23.5, [place] % (Auto) 12.8 H, Eos % (Auto) 0.0, Baso % (Auto) 0.2, Absolute Neuts (auto) 2.9, Absolute Lymphs (auto) 1.08, Total Counted Not Reportable, Hypochromasia 1+ 07/07/17 07:00: Sodium 142, Potassium 4.2, Chloride 111 H, Carbon Dioxide 20.0 L, Anion Gap 11, BUN 40 H, Creatinine 2.75 H, Estim Creat Clear Calc 21.08, Est GFR (MDRD) Af Amer 24 L, Est GFR (MDRD) Non-Af 20 L, BUN/Creatinine Ratio 14.5, Glucose 102, Calcium 8.3 L Current Medications Acetaminophen (Tylenol) 650 mg PO Q6H PRN PRN PRN Reason: Mild Pain (scale 0-3)/T>100.7 Al Hydroxide/Mg Hydroxide (Mylanta Ii) 30 ml PO Q6H PRN PRN PRN Reason: Gastric burning Aspirin (Ecotrin) 81 mg PO DAILY@0800 [facility] Last Admin: 07/07/17 07:37 Dose: 81 mg Dextrose (D50w Syringe) 0 gm IV X1 PRN; Protocol PRN Reason: Hypoglycemia Dicyclomine HCl (Bentyl) 20 mg PO TIDAC [facility] Last Admin: 07/07/17 06:53 Dose: 20 mg Duloxetine HCl (Cymbalta) 60 mg PO DAILY [facility] Last Admin: 07/07/17 07:37 Dose: 60 mg Enoxaparin Sodium (Lovenox) 30 mg SC DAILY@1000 [facility] Last Admin: 07/07/17 07:37 Dose: 30 mg [facility] Last Admin: 07/07/17 07:37 Dose: 325 mg Glucagon () 1 mg IM .X1 PRN PRN Reason: Hypoglycemia Sodium Chloride () 1,000 mls @ 125 mls/hr IV .Q8H [facility] Last Admin: 07/07/17 04:11 Dose: 125 mls/hr Ceftriaxone Sodium (Rocephin) 1 gm in 50 mls @ 100 mls/hr IV Q24 [facility] Insulin Aspart (Novolog Flexpen (Bkc)) 0 units SC ACHS [facility] PRN Reason: Protocol Last Admin: 07/07/17 06:54 Dose: Not Given Insulin Detemir (Levemir (Bkc)) 25 units SC QHS [facility] Last Admin: 07/06/17 23:05 Dose: 25 units Magnesium Hydroxide (Milk Of Magnesia) 30 ml PO DAILY PRN PRN PRN Reason: Constipation Metoprolol Tartrate (Lopressor (Beta Crystal)) 25 mg PO BID [facility] Last Admin: 07/07/17 07:36 Dose: 25 mg Morphine Sulfate () 2 - 4 mg IV Q3H PRN PRN PRN Reason: Severe Pain (pain scale 6-10) Last Admin: 07/07/17 04:04 Dose: 2 mg Morphine Sulfate () 1 - 2 mg IV Q4H PRN PRN PRN Reason: Moderate Pain (pain scale 4-5) Morphine Sulfate () 2 - 4 mg IV Q3H PRN PRN PRN Reason: Severe Pain (pain scale 6-10) Nutritional Formula (Lactose Free) (Glucerna Shake) 120 ml PO 4X/DAY [facility] Last Admin: 07/07/17 07:37 Dose: Not Given Ondansetron HCl (Zofran) 4 mg IV Q8H PRN PRN PRN Reason: NAUSEA Last Admin: 07/07/17 04:03 Dose: 4 mg Oxycodone HCl (Oxyir) 5 mg PO Q4H PRN PRN PRN Reason: Moderate Pain (pain scale 4-5) Pantoprazole Sodium (Protonix) 20 mg PO BID [facility] Last Admin: 07/07/17 07:37 Dose: 20 mg Promethazine HCl (Phenergan Iv) 12.5 mg IV Q6H PRN PRN PRN Reason: NAUSEA/VOMITING Sodium Chloride () 5 - 30 ml IV UD PRN PRN Reason: SALINE FLUSH Medical Necessity - Tobacco Use Smoking Status: Never smoker Tobacco Use: Non-smoker Assessment/Plan Active and Suspected Problems (Last Updated 04/29/17 @ 09:53 by Catherine Barboza) Gastroenteritis (Acute) 1. Acute gastroenteritis resolving. Admitted with a complaint of nausea and vomiting,as well as diarrhea. These have largely resolved. CBC showed no leucocytosis. BMP showed Cr of 3.20, down to 2.75 today. has a history of CKD 3 on IVF NS; will continue on IV ceftriaxone and IV zofran stool cultures pending. CT abdomen: no acute bowel abnormalities, no ascites, free air or significant inflammation. Nonspecific prominent lymph nodes in the retroperitoneum, and mesentery, likely reactive. Moderate hydronephrosis bilaterally and distension of urine bladder. C Diff screen pending 2. UTI has neurogenic bladder; passes urine but has to do straight cath q8hrs; isnt usually very compliant. UA showed cloudy urine with LE-500, and occult blood-50, with wbc>100. urine cultures pending. Blood cultures pending. will monitor 3. CAD s/p PCI: stable. On aspirin. not on statin.on metoprolol 25mg bid. 4. DM2; on insulin sliding scale and lantus 25 IU qhs. Accuchecks ACHS. fasting sugar today was 112. 5. HTn: on metoprolol 25mg bid. Hydralazine PRN 6. DCD 3: baseline Cr ~ 4; was 3 on admission, now down to 2.5. will monitor 7. Iron deficiency anemia: Hb is 8.6 this morning, was 10.3 on amdiission. drop may be hemodilutional. will monitor 8. Anxiety and depresison: on cymbalta 9. DVT prophylaxis: heparin and PCDs 10. GI prophylaxis: pantoprazole Code Visit Inpatient E&M: 95608 [facility] Hosp L3
[2017-07-07] MEDS: proMETHazine 25 MG/ML Syringe 12.5 MG IV (09:59)
[2017-07-07] MEDS: 0.9% NaCl Peripheral Flush Adult/Peds IV (09:59)
[2017-07-07] MEDS: Ceftriaxone 1 GM/50 ML BAG IV (09:59)
--- NOTE | 2017-07-07 10:05 | PN_ITS ---
Patient Problems: Active and Suspected Problems (Last Updated 04/29/17 @ 09:53 by Catherine Barboza) Gastroenteritis (Acute) Subjective: Patient is a 42 y/o female with a PMH of DM2 with neuropathy and neurogenic bladder, HTN, CAD s/p PCI, bilateral obstructive uropathy due to renal calculi s /p bilateral stent placement (removed 04/18) and iron deficiency anemia. She was admitted on 07/06/17 with a complaint of diarrhea, nausea and vomiting. She had assocaited low grade fevr and abdominal discomfort whilst at home. She was supposed to do straight caths at home q8 to relieve neurogenic bladder but had not been very compliant. She is being managed for UTI and acute gastroenteritis. She is on IV rocephin, IVF, zofran and tyelenol. Patient seen and examined this morning. She felt better and had no complaints. She denied fever, chills, cough, chest pain, SOB or abdominal pain. She denied frequency of urination, dysuria or offensive smell to urine. She hasnt vomited or had an episode of diarrhea since admission. Review of systems is otherwise negative. Vitals/I&O's: Vital Signs Temp Pulse Resp BP Pulse Ox 98.1 F 76 18 139/92 H 99 07/07/17 07:30 07/07/17 07:36 07/07/17 07:30 07/07/17 07:30 07/07/17 07:45 Oxygen Delivery Method Room Air Weight: 222 lb 14.197 oz Body Mass Index (BMI) 40.7 Intake and Output for Last 24 Hours 07/05/17 07/06/17 07/07/17 23:59 23:59 23:59 Intake Total 2011 Output Total 1725 / 1725 Balance 287 / 287 General: Alert, Oriented x3, Cooperative, No apparent distress HEENT: Atraumatic, PERRLA, EOMI, Normocephalic Oral: Moist Mucosa Neck: Supple, No JVD, Negative Carotid Bruits Lungs: Clear to auscultation, Normal air movement, No rhonchi, No wheeze, No rales Cardiovascular: Regular rate, Regular Rhythm, Normal S1, Normal S2, No murmurs Abdomen: Bowel Sounds Present, Soft, Non Tender, Non-Distended, No Hepato- splenomegaly Extremities: No cyanosis, No edema, Capillary Refill Less than 3 Seconds Skin: No rashes, No breakdown Musculoskeletal: No Tenderness to Palpation of Joints or Extremities Lymphatic: No Cervical, Supraclavicular, or Inguinal Adenopathy Neurological: Cranial nerves II-XII grossly intact, Neuro grossly intact, Motor Exam 5/5 strength throughout Psych/Mental Status: Normal Affect, Appropriate, Alert and oriented to time, place, person, mood and affect Laboratory Results 07/06/17 23:01: POC Glucose 178 H 07/07/17 06:46: POC Glucose 112 H 07/07/17 07:00: WBC 4.6, RBC 3.50 L, Hgb 8.6 L, Hct 25.8 L, MCV 73.7 L, MCH 24.6 L, MCHC 33.3, RDW 13.6, RDW Differential 35.6, Plt Count 301, MPV 8.8, Immature Gran % (Auto) 0.400, Neut % (Auto) 63.1, Lymph % (Auto) 23.5, [place] % ( Auto) 12.8 H, Eos % (Auto) 0.0, Baso % (Auto) 0.2, Absolute Neuts (auto) 2.9, Absolute Lymphs (auto) 1.08, Total Counted Not Reportable, Hypochromasia 1+ 07/07/17 07:00: Sodium 142, Potassium 4.2, Chloride 111 H, Carbon Dioxide 20.0 L , Anion Gap 11, BUN 40 H, Creatinine 2.75 H, Estim Creat Clear Calc 21.08, Est GFR (MDRD) Af Amer 24 L, Est GFR (MDRD) Non-Af 20 L, BUN/Creatinine Ratio 14.5, Glucose 102, Calcium 8.3 L Current Medications Acetaminophen (Tylenol) 650 mg PO Q6H PRN PRN PRN Reason: Mild Pain (scale 0-3)/T>100.7 Al Hydroxide/Mg Hydroxide (Mylanta Ii) 30 ml PO Q6H PRN PRN PRN Reason: Gastric burning Aspirin (Ecotrin) 81 mg PO DAILY@0800 [facility] Last Admin: 07/07/17 07:37 Dose: 81 mg Dextrose (D50w Syringe) 0 gm IV X1 PRN; Protocol PRN Reason: Hypoglycemia Dicyclomine HCl (Bentyl) 20 mg PO TIDAC [facility] Last Admin: 07/07/17 06:53 Dose: 20 mg Duloxetine HCl (Cymbalta) 60 mg PO DAILY [facility] Last Admin: 07/07/17 07:37 Dose: 60 mg Enoxaparin Sodium (Lovenox) 30 mg SC DAILY@1000 [facility] Last Admin: 07/07/17 07:37 Dose: 30 mg Ferrous Sulfate [facility]) [facility] Last Admin: 07/07/17 07:37 Dose: 325 mg Glucagon () 1 mg IM .X1 PRN PRN Reason: Hypoglycemia Sodium Chloride () 1,000 mls @ 125 mls/hr IV .Q8H [facility] Last Admin: 07/07/17 04:11 Dose: 125 mls/hr Ceftriaxone Sodium (Rocephin) 1 gm in 50 mls @ 100 mls/hr IV Q24 [facility] Insulin Aspart (Novolog Flexpen (Bkc)) 0 units SC ACHS [facility] PRN Reason: Protocol Last Admin: 07/07/17 06:54 Dose: Not Given Insulin Detemir (Levemir (Bkc)) 25 units SC QHS [facility] Last Admin: 07/06/17 23:05 Dose: 25 units Magnesium Hydroxide (Milk Of Magnesia) 30 ml PO DAILY PRN PRN PRN Reason: Constipation Metoprolol Tartrate (Lopressor (Beta Crystal)) 25 mg PO BID [facility] Last Admin: 07/07/17 07:36 Dose: 25 mg Morphine Sulfate () 2 - 4 mg IV Q3H PRN PRN PRN Reason: Severe Pain (pain scale 6-10) Last Admin: 07/07/17 04:04 Dose: 2 mg Morphine Sulfate () 1 - 2 mg IV Q4H PRN PRN PRN Reason: Moderate Pain (pain scale 4-5) Morphine Sulfate () 2 - 4 mg IV Q3H PRN PRN PRN Reason: Severe Pain (pain scale 6-10) Nutritional Formula (Lactose Free) (Glucerna Shake) 120 ml PO 4X/DAY [facility] Last Admin: 07/07/17 07:37 Dose: Not Given Ondansetron HCl (Zofran) 4 mg IV Q8H PRN PRN PRN Reason: NAUSEA Last Admin: 07/07/17 04:03 Dose: 4 mg Oxycodone HCl (Oxyir) 5 mg PO Q4H PRN PRN PRN Reason: Moderate Pain (pain scale 4-5) Pantoprazole Sodium (Protonix) 20 mg PO BID [facility] Last Admin: 07/07/17 07:37 Dose: 20 mg Promethazine HCl (Phenergan Iv) 12.5 mg IV Q6H PRN PRN PRN Reason: NAUSEA/VOMITING Sodium Chloride () 5 - 30 ml IV UD PRN PRN Reason: SALINE FLUSH Medical Necessity - Tobacco Use Smoking Status: Never smoker Tobacco Use: Non-smoker Assessment/Plan Active and Suspected Problems (Last Updated 04/29/17 @ 09:53 by Catherine Barboza) Gastroenteritis (Acute) 1. Acute gastroenteritis * resolving. Admitted with a complaint of nausea and vomiting,as well as diarrhea. These have largely resolved. * CBC showed no leucocytosis. * BMP showed Cr of 3.20, down to 2.75 today. has a history of CKD 3 * on IVF NS; will continue * on IV ceftriaxone and IV zofran * stool cultures pending. * CT abdomen: no acute bowel abnormalities, no ascites, free air or significant inflammation. Nonspecific prominent lymph nodes in the retroperitoneum, and mesentery, likely reactive. Moderate hydronephrosis bilaterally and distension of urine bladder. * C Diff screen pending 2. UTI * has neurogenic bladder; passes urine but has to do straight cath q8hrs; isnt usually very compliant. * UA showed cloudy urine with LE-500, and occult blood-50, with wbc>100. * urine cultures pending. Blood cultures pending. * will monitor * 3. CAD s/p PCI: stable. On aspirin. not on statin.on metoprolol 25mg bid. 4. DM2; on insulin sliding scale and lantus 25 IU qhs. Accuchecks ACHS. fasting sugar today was 112. 5. HTn: on metoprolol 25mg bid. Hydralazine PRN 6. DCD 3: baseline Cr ~ 4; was 3 on admission, now down to 2.5. will monitor 7. Iron deficiency anemia: Hb is 8.6 this morning, was 10.3 on amdiission. drop may be hemodilutional. will monitor 8. Anxiety and depresison: on cymbalta 9. DVT prophylaxis: heparin and PCDs 10. GI prophylaxis: pantoprazole Code Visit Inpatient E&M: [id number] Subs Hosp L3
[2017-07-07 11:40] LABS: Bedside Glucose 93 mg/dL (70-110)
--- NOTE | 2017-07-07 16:57 | NURSING ---
No BM for over 24hr. Special Contact isolation precautions removed and stool specimen orders cancelled.
[2017-07-07 17:25] LABS: Bedside Glucose 85 mg/dL (70-110)
[2017-07-07 17:25] LABS: Bedside Glucose 66 mg/dL (70-110)
[2017-07-07 21:21] LABS: Bedside Glucose 92 mg/dL (70-110)
[2017-07-08] VITALS (12 sets, daily range): BP systolic 150–170; BP diastolic 74–104; PULSE 67–88; RESP 16–18; TEMP 36.6–36.9; O2SAT 96–100
[2017-07-08] MEDS: 0.9% NaCl Peripheral Flush Adult/Peds IV ×2 (06:17→15:31)
[2017-07-08] MEDS: Dicyclomine 10 MG Capsule 20 MG PO ×3 (06:18→16:49)
[2017-07-08 06:31] LABS: Bedside Glucose 67 mg/dL (70-110)
[2017-07-08 06:43] LABS: Albumin, Serum 2.3 g/dL (3.2-5.0); BUN 33 mg/dL (7-18); Calcium,Total 8.2 mg/dL (8.5-10.1); Chloride 114 mmol/L (98-107); Creatinine, Serum 2.54 mg/dL (0.55-1.02); EST Glomerular Filtration Rate 22 mL/min (>60); Est Glom Filt Rate - Afr Amer 27 mL/min (>60); Estimated Creatinine Clearance 22.82 ml/min; Glucose 68 mg/dL (74-106); Phosphorus 3.2 mg/dL (2.5-4.9); Potassium 4.1 mmol/L (3.5-5.1); Sodium Level 140 mmol/L (136-145)
[2017-07-08] MEDS: hydrALAZINE 20 MG/ML Vial 10 MG IV ×2 (06:43→15:31)
[2017-07-08 06:49] LABS: Absolute Lymphocyte Count 1.22 X10^3/ul (0.83-4.51); Absolute Neutrophil Count 4.7 X10^3/uL (2.0-7.7); Basophil# 0.01 X10^3/uL; Basophil% 0.1 % (0-1); Eosinophil# 0.02 X10^3/uL; Eosinophils% 0.3 % (0-5); Hematocrit 28.2 % (37-47); Hemoglobin 9.3 g/dl (12.0-15.0); Lymphocyte # 1.22 X10^3/ul (4.0); Lymphocyte % 17.6 % (19-41); Mean Corpuscular Hgb 24.6 pg (27.0-32.0); Mean Corpuscular Volume 74.6 fL (81-99); Mean Platelet Vol. 8.9 fl (6.2-12.0); Monocyte# 1.03 X10^3/uL; Monocyte% 14.8 % (0-10); Neutrophil # 4.65 X10^3/uL (2.7-7.7); Neutrophil % 66.9 % (47-70); Platelet Count 292 K/mm3 (150-450); RBC Distribution Width CV 13.6 % (11.6-14.6); Red Blood Count 3.78 M/mm3 (4.2-5.4)
[2017-07-08 07:01] LABS: Bedside Glucose 75 mg/dL (70-110)
[2017-07-08 07:02] LABS: Differential Indicated SCAN CRITERIA MET; POSITIVE COUNT NO; POSITIVE DIFFERENTIAL NO; POSITIVE MORPHOLOGY YES
[2017-07-08 07:37] LABS: Hypochromasia 1+; Microcytosis 2+; Platelet Estimate ADEQUATE (ADEQ); Target Cells RARE
[2017-07-08 07:38] LABS: Tear Drop Cell 1+
[2017-07-08] MEDS: 0.9% Normal Saline 1,000 ML 125 ML IV ×3 (08:38→22:45)
[2017-07-08] MEDS: Pantoprazole Sodium 20 MG Tablet PO ×2 (08:39→22:45)
[2017-07-08] MEDS: Aspirin E.C. 81 MG Tablet PO (08:40)
[2017-07-08] MEDS: DULoxetine Hcl 60 MG Capsule PO (08:41)
[2017-07-08] MEDS: Ferrous Sulfate 325 MG Tablet PO ×2 (08:41→16:50)
[2017-07-08] MEDS: Enoxaparin 30 MG/0.3 ML Syringe SC (08:42)
[2017-07-08] MEDS: Metoprolol Tartrate 25 MG Tablet PO ×2 (08:42→22:30)
--- NOTE | 2017-07-08 08:56 | PN_ITS ---
Patient Problems: Active and Suspected Problems (Last Updated 04/29/17 @ 09:53 by Catherine Barboza) Gastroenteritis (Acute) Subjective: Seen and examined. Patient did not had vomiting but has nausea. Patient has stage IV CKD and being followed by Dr. Odonnell. Patient also had history of obstructive uropathy secondary to multiple kidney and ureteric stones and had bilateral ureteric stents removed recently. She is being followed by [facility] urologist and was seen by Dr. Martinez in the past. Vitals/I&O's: Vital Signs Temp Pulse Resp BP Pulse Ox 98.1 F 75 16 159/96 H 96 07/08/17 08:23 07/08/17 08:42 07/08/17 08:23 07/08/17 08:23 07/08/17 08:23 Oxygen Delivery Method Room Air Weight: 222 lb 14.197 oz Body Mass Index (BMI) 40.7 Intake and Output for Last 24 Hours 07/06/17 07/07/17 07/08/17 23:59 23:59 23:59 Intake Total 4753 / 4753 2286 / 2286 Output Total 3325 / 3325 1250 / 1250 Balance 1428 / 1428 1036 / 1036 General: Alert, Oriented x3, Cooperative HEENT: Atraumatic, PERRLA, EOMI, Normocephalic Neck: Supple, No JVD, Negative Carotid Bruits Lungs: Clear to auscultation, Normal air movement Cardiovascular: Regular rate, Normal S1, Normal S2, No murmurs Abdomen: Bowel Sounds Present, Soft, Non Tender, Non-Distended, - - No renal angle tenderness Extremities: No edema, Capillary Refill Less than 3 Seconds Skin: - - Chronic scabbed wound/ulcer of her abdominal skin Musculoskeletal: No Tenderness to Palpation of Joints or Extremities Neurological: Cranial nerves II-XII grossly intact Psych/Mental Status: Normal Affect, Appropriate Laboratory Results 07/07/17 11:26: POC Glucose 93 07/07/17 16:47: POC Glucose 66 L 07/07/17 17:13: POC Glucose 85 07/07/17 21:17: POC Glucose 92 07/08/17 06:00: WBC 7.0, RBC 3.78 L, Hgb 9.3 L, Hct 28.2 L, MCV 74.6 L, MCH 24.6 L, MCHC 33.0, RDW 13.6, RDW Differential 36.0, Plt Count 292, MPV 8.9, Immature Gran % (Auto) 0.300, Neut % (Auto) 66.9, Lymph % (Auto) 17.6 L, [place] % (Auto) 14.8 H, Eos % (Auto) 0.3, Baso % (Auto) 0.1, Absolute Neuts (auto) 4.7, Absolute Lymphs (auto) 1.22, Total Counted Not Reportable, Platelet Estimate ADEQUATE, Hypochromasia 1+, Microcytosis 2+, Target Cells RARE, Tear Drop Cells 1+ 07/08/17 06:00: Sodium 140, Potassium 4.1, Chloride 114 H, Carbon Dioxide 16.0 L , BUN 33 H, Creatinine 2.54 H, Estim Creat Clear Calc 22.82, Est GFR (MDRD) Af Amer 27 L, Est GFR (MDRD) Non-Af 22 L, BUN/Creatinine Ratio 13.0, Glucose 68 L, Calcium 8.2 L, Phosphorus 3.2, Albumin 2.3 L 07/08/17 06:25: POC Glucose 67 L 07/08/17 06:51: POC Glucose 75 Current Medications Acetaminophen (Tylenol) 650 mg PO Q6H PRN PRN PRN Reason: Mild Pain (scale 0-3)/T>100.7 Al Hydroxide/Mg Hydroxide (Mylanta Ii) 30 ml PO Q6H PRN PRN PRN Reason: Gastric burning Aspirin (Ecotrin) 81 mg PO DAILY@0800 [facility] Last Admin: 07/08/17 08:40 Dose: 81 mg Dextrose (D50w Syringe) 0 gm IV X1 PRN; Protocol PRN Reason: Hypoglycemia Dicyclomine HCl (Bentyl) 20 mg PO TIDAC [facility] Last Admin: 07/08/17 06:18 Dose: 20 mg Duloxetine HCl (Cymbalta) 60 mg PO DAILY [facility] Last Admin: 07/08/17 08:41 Dose: 60 mg Enoxaparin Sodium (Lovenox) 30 mg SC DAILY@1000 [facility] Last Admin: 07/08/17 08:42 Dose: 30 mg Ferrous Sulfate (Ferrous Sulfate) 325 mg PO BIDCM [facility] Last Admin: 07/08/17 08:41 Dose: 325 mg Glucagon () 1 mg IM .X1 PRN PRN Reason: Hypoglycemia Hydralazine HCl (Apresoline Iv) 10 mg IV Q4H PRN PRN PRN Reason: SBP > 160 Last Admin: 07/08/17 06:43 Dose: 10 mg Sodium Chloride () 1,000 mls @ 125 mls/hr IV .Q8H [facility] Last Admin: 07/08/17 08:38 Dose: 125 mls/hr Ceftriaxone Sodium (Rocephin) 1 gm in 50 mls @ 100 mls/hr IV Q24 [facility] Last Admin: 07/07/17 09:59 Dose: 100 mls/hr Insulin Aspart (Novolog Flexpen ([facility])) 0 units SC ACHS [facility] PRN Reason: Protocol Last Admin: 07/08/17 06:42 Dose: Not Given Insulin Detemir (Levemir ([facility])) 25 units SC QHS [facility] Last Admin: 07/07/17 21:20 Dose: 25 units Magnesium Hydroxide (Milk Of Magnesia) 30 ml PO DAILY PRN PRN PRN Reason: Constipation Metoprolol Tartrate (Lopressor (Beta Crystal)) 25 mg PO BID [facility] Last Admin: 07/08/17 08:42 Dose: 25 mg Morphine Sulfate () 2 - 4 mg IV Q3H PRN PRN PRN Reason: Severe Pain (pain scale 6-10) Last Admin: 07/07/17 20:24 Dose: 2 mg Morphine Sulfate () 1 - 2 mg IV Q4H PRN PRN PRN Reason: Moderate Pain (pain scale 4-5) Morphine Sulfate () 2 - 4 mg IV Q3H PRN PRN PRN Reason: Severe Pain (pain scale 6-10) Nutritional Formula (Lactose Free) (Ensure Clear) 120 ml PO 4X/DAY [facility] Last Admin: 07/08/17 08:37 Dose: 120 ml Ondansetron HCl (Zofran) 4 mg IV Q8H PRN PRN PRN Reason: NAUSEA Last Admin: 07/07/17 04:03 Dose: 4 mg Oxycodone HCl (Oxyir) 5 mg PO Q4H PRN PRN PRN Reason: Moderate Pain (pain scale 4-5) Pantoprazole Sodium (Protonix) 20 mg PO BID [facility] Last Admin: 07/08/17 08:39 Dose: 20 mg Promethazine HCl (Phenergan Iv) 12.5 mg IV Q6H PRN PRN PRN Reason: NAUSEA/VOMITING Last Admin: 07/07/17 09:59 Dose: 12.5 mg Sodium Chloride () 5 - 30 ml IV UD PRN PRN Reason: SALINE FLUSH Last Admin: 07/08/17 06:17 Dose: 10 ml Medical Necessity - Tobacco Use Smoking Status: Never smoker Tobacco Use: Non-smoker Assessment/Plan Active and Suspected Problems (Last Updated 04/29/17 @ 09:53 by Catherine Barboza) Gastroenteritis (Acute) There is a 42-year-old female with history of diabetes mellitus type 2 complicated with diabetic neuropathy and neurogenic bladder with self catheterization, hypertension, coronary artery disease status post PCI, bilateral obstructive uropathy due to nephrolithiasis with bilateral ureteric stents removed on April 18 and iron versus anemia was admitted with nausea, vomiting and diarrhea. No GI bleed. Patient also had low-grade fever. CT abdomen was done and did not show acute finding but bilateral moderate hydronephrosis with distention of the urinary bladder. 1. Acute gastroenteritis along resolved. Patient has mild nausea. Advance diet from clear liquid to soft diet. * CBC showed no leucocytosis. * BMP showed Cr of 3.20, down to 2.75 today. has a history of CKD 3 * on IVF NS; will continue * on IV ceftriaxone and IV zofran * stool cultures pending. * CT abdomen: no acute bowel abnormalities, no ascites, free air or significant inflammation. Nonspecific prominent lymph nodes in the retroperitoneum, and mesentery, likely reactive. Moderate hydronephrosis bilaterally and distension of urine bladder. * C Diff screen pending 2. UTI * has neurogenic bladder; passes urine but has to do straight cath q8hrs; isnt usually very compliant. * UA showed cloudy urine with LE-500, and occult blood-50, with wbc>100. * Urine culture shows group B streptococcus, full report pending. 3. CAD s/p PCI: stable. On aspirin. not on statin.on metoprolol 25mg bid. 4. DM2; on insulin sliding scale and lantus 25 IU qhs. Accuchecks ACHS. fasting sugar today was 112. 5. HTn: on metoprolol 25mg bid. Hydralazine PRN 6. chronic kidney disease stage IV: baseline Cr ~ 4; was 3 on admission, currently 2.5. Patient sees Dr. Odonnell who has been consulted. She had vein mapping done on July 02 for future need for hemodialysis. 7. anemia of chronic disease secondary to CKD, stage IV: Hb was 10.3 on admission. drop may be hemodilutional. Hb 9.3. 8. Anxiety and depresison: on cymbalta 9. DVT prophylaxis: heparin and PCDs 10. GI prophylaxis: pantoprazole Microbiology Past 72 Hours 07/06/17 18:25 Urine, Clean Catch Urine Culture - Preliminary Streptococcus group B 07/06/17 20:25 Mucosa - Nose Respiratory Panel (PCR) - Final 07/06/17 20:25 Mucosa - Nose Influenza Types A,B Direct FA (HONG) - Final Laboratory Results 07/07/17 16:47: POC Glucose 66 L 07/07/17 17:13: POC Glucose 85 07/07/17 21:17: POC Glucose 92 07/08/17 06:00: WBC 7.0, RBC 3.78 L, Hgb 9.3 L, Hct 28.2 L, MCV 74.6 L, MCH 24.6 L, MCHC 33.0, RDW 13.6, RDW Differential 36.0, Plt Count 292, MPV 8.9, Immature Gran % (Auto) 0.300, Neut % (Auto) 66.9, Lymph % (Auto) 17.6 L, [place] % (Auto) 14.8 H, Eos % (Auto) 0.3, Baso % (Auto) 0.1, Absolute Neuts (auto) 4.7, Absolute Lymphs (auto) 1.22, Total Counted Not Reportable, Platelet Estimate ADEQUATE, Hypochromasia 1+, Microcytosis 2+, Target Cells RARE, Tear Drop Cells 1+ 07/08/17 06:00: Sodium 140, Potassium 4.1, Chloride 114 H, Carbon Dioxide 16.0 L , BUN 33 H, Creatinine 2.54 H, Estim Creat Clear Calc 22.82, Est GFR (MDRD) Af Amer 27 L, Est GFR (MDRD) Non-Af 22 L, BUN/Creatinine Ratio 13.0, Glucose 68 L, Calcium 8.2 L, Phosphorus 3.2, Albumin 2.3 L 07/08/17 06:25: POC Glucose 67 L 07/08/17 06:51: POC Glucose 75 07/08/17 11:30: POC Glucose 107 Code Visit Inpatient E&M: 55107 Subs Hosp L3
[2017-07-08] MEDS: Ceftriaxone 1 GM/50 ML BAG IV (09:59)
--- NOTE | 2017-07-08 11:29 | PCM.CONS.R ---
Consultation - Renal 07/08/17 PCP/ Referring MD: Requesting physician: Bhupinder Peters Primary care physician: Melvi Eastman Reason for Consultation:: CKD 4 - History of Present Illness History of Present Illness: The patient is a 42 y/o F well known to me with neurogenic bladder, CKD stage IV due to obstructive nephropathy self cath twice a day, diabetic nephropathy presents with nausea, vomiting, fever since last Saturday. She had a temperature of 101 during hospitalization. She admits to some diarrhea on Saturday. Creatinine was 2.7 on admission improved down to 2.5 EGFR 27 cc/min receiving IV fluids and IV antibiotic therapy for UTI. She denied any change in her urinary output. She denied any flank pain, tenderness or dysuria. She continues to have nausea. Diarrhea has resolved. She denied any chest pain or shortness of breath. She was scheduled to follow up with Dr. Patricia for access placement today as an outpatient. She had vein mapping done on July 02. - Allergies Allergies: Allergies ciprofloxacin [From Cipro] Adverse Reaction (Verified 07/06/17 22:40) Vomiting contrast dye Allergy (Severe, Uncoded 07/06/17 22:40) Anaphylaxis - Current Medications Current Medications: Current Medications Acetaminophen (Tylenol) 650 mg PO Q6H PRN PRN PRN Reason: Mild Pain (scale 0-3)/T>100.7 Al Hydroxide/Mg Hydroxide (Mylanta Ii) 30 ml PO Q6H PRN PRN PRN Reason: Gastric burning Aspirin (Ecotrin) 81 mg PO DAILY@0800 [facility] Last Admin: 07/08/17 08:40 Dose: 81 mg Dextrose (D50w Syringe) 0 gm IV X1 PRN; Protocol PRN Reason: Hypoglycemia Dicyclomine HCl (Bentyl) 20 mg PO TIDAC [facility] Last Admin: 07/08/17 06:18 Dose: 20 mg Duloxetine HCl (Cymbalta) 60 mg PO DAILY [facility] Last Admin: 07/08/17 08:41 Dose: 60 mg Enoxaparin Sodium (Lovenox) 30 mg SC DAILY@1000 [facility] Last Admin: 07/08/17 08:42 Dose: 30 mg Ferrous Sulfate (Ferrous Sulfate) 325 mg PO BIDCM [facility] Last Admin: 07/08/17 08:41 Dose: 325 mg Glucagon () 1 mg IM .X1 PRN PRN Reason: Hypoglycemia Hydralazine HCl (Apresoline Iv) 10 mg IV Q4H PRN PRN PRN Reason: SBP > 160 Last Admin: 07/08/17 06:43 Dose: 10 mg Sodium Chloride () 1,000 mls @ 125 mls/hr IV .Q8H [facility] Last Admin: 07/08/17 08:38 Dose: 125 mls/hr Ceftriaxone Sodium (Rocephin) 1 gm in 50 mls @ 100 mls/hr IV Q24 [facility] Last Admin: 07/08/17 09:59 Dose: 100 mls/hr Insulin Aspart (Novolog Flexpen ([facility])) 0 units SC ACHS [facility] PRN Reason: Protocol Last Admin: 07/08/17 06:42 Dose: Not Given Insulin Detemir (Levemir ([facility])) 25 units SC QHS [facility] Last Admin: 07/07/17 21:20 Dose: 25 units Magnesium Hydroxide (Milk Of Magnesia) 30 ml PO DAILY PRN PRN PRN Reason: Constipation Metoprolol Tartrate (Lopressor (Beta Crystal)) 25 mg PO BID [facility] Last Admin: 07/08/17 08:42 Dose: 25 mg Morphine Sulfate () 2 - 4 mg IV Q3H PRN PRN PRN Reason: Severe Pain (pain scale 6-10) Last Admin: 07/07/17 20:24 Dose: 2 mg Morphine Sulfate () 1 - 2 mg IV Q4H PRN PRN PRN Reason: Moderate Pain (pain scale 4-5) Morphine Sulfate () 2 - 4 mg IV Q3H PRN PRN PRN Reason: Severe Pain (pain scale 6-10) Nutritional Formula (Lactose Free) (Ensure Clear) 120 ml PO 4X/DAY [facility] Last Admin: 07/08/17 08:37 Dose: 120 ml Ondansetron HCl (Zofran) 4 mg IV Q8H PRN PRN PRN Reason: NAUSEA Last Admin: 07/07/17 04:03 Dose: 4 mg Oxycodone HCl (Oxyir) 5 mg PO Q4H PRN PRN PRN Reason: Moderate Pain (pain scale 4-5) Pantoprazole Sodium (Protonix) 20 mg PO BID [facility] Last Admin: 07/08/17 08:39 Dose: 20 mg Promethazine HCl (Phenergan Iv) 12.5 mg IV Q6H PRN PRN PRN Reason: NAUSEA/VOMITING Last Admin: 07/07/17 09:59 Dose: 12.5 mg Sodium Chloride () 5 - 30 ml IV UD PRN PRN Reason: SALINE FLUSH Last Admin: 07/08/17 06:17 Dose: 10 ml - Past Medical History Past Medical History (Chronic Problems): Chronic Problems (Last Updated 04/29/17 @ 09:53 by Catherine Barboza) Morbid obesity (Chronic) HTN (hypertension) (Chronic) Bilateral hydronephrosis (Chronic) Iron deficiency anemia (Chronic) Type II diabetes mellitus (Chronic) Coronary artery disease (Chronic) Chronic low back pain (Chronic) Hydroureter (Chronic) Hydronephrosis (Chronic) Bladder outlet obstruction (Chronic) - Past Surgical History Surgical History: - - PCI, BL Ureteral stent placements and subsequent removal. - Social History Smoking Status: Never smoker Alcohol: None Drugs: None - Family History Maternal History Items: Unknown - Patient adopted Paternal History Items: Unknown Review of Systems Constitutional: Reports: Anorexia, Chills, Fever, Weakness, Fatigue HEENT: Denies: Head Aches Cardiovascular: Denies: Chest Pain, Edema, Syncope Respiratory: Denies: Cough, Shortness of Breath Gastrointestinal: Reports: Diarrhea, Nausea - ?1 day, Vomiting. Denies: Abdominal Pain Genitourinary: Reports: Retention - History of neurogenic bladder, - - Self cath, - - Denied flank pain. Denies: Dysuria Musculoskeletal: Reports: - - No flank pain Neurological: Denies: Tremor, Seizures Psychiatric: Reports: Depression Hematologic/ Lymphatic: Reports: Anemia Patient Problems: Active and Suspected Problems (Last Updated 04/29/17 @ 09:53 by Catherine Barboza) Gastroenteritis (Acute) - Physical Exam General: Alert, Oriented x3, Cooperative, No apparent distress HEENT: PERRLA, EOMI Oral: Dry Mucosa Neck: Supple Lungs: Clear to auscultation Cardiovascular: Regular rate, No rub noted Abdomen: Bowel Sounds Present, Soft, Non Tender, Non-Distended, Obese Extremities: No edema Skin: No rashes Musculoskeletal: No Muscle Wasting Neurological: Cranial nerves II-XII grossly intact Psych/Mental Status: Normal Affect, Appropriate, Alert and oriented to time, place, person, mood and affect Vital Signs Temp Pulse Resp BP Pulse Ox 98.1 F 75 16 159/96 H 96 07/08/17 08:23 07/08/17 08:42 07/08/17 08:23 07/08/17 08:23 07/08/17 08:23 Oxygen Delivery Method Room Air Weight: 101.1 kg Body Mass Index (BMI) 40.7 Intake and Output for Last 24 Hours 07/06/17 07/07/17 07/08/17 23:59 23:59 23:59 Intake Total 4753 / 4753 2286 / 2286 Output Total 3325 / 3325 1250 / 1250 Balance 1428 / 1428 1036 / 1036 Laboratory Tests Past 24 Hrs 07/08/17 07/08/17 06:00 06:00 WBC 7.0 RBC 3.78 L Hgb 9.3 L Hct 28.2 L MCV 74.6 L MCH 24.6 L MCHC 33.0 RDW 13.6 RDW Differential 36.0 Plt Count 292 MPV 8.9 Immature Gran % (Auto) 0.300 Neut % (Auto) 66.9 Lymph % (Auto) 17.6 L [place] % (Auto) 14.8 H Eos % (Auto) 0.3 Baso % (Auto) 0.1 Absolute Neuts (auto) 4.7 Absolute Lymphs (auto) 1.22 Total Counted Not Reportable Platelet Estimate ADEQUATE Hypochromasia 1+ Microcytosis 2+ Target Cells RARE Tear Drop Cells 1+ Sodium 140 Potassium 4.1 Chloride 114 H Carbon Dioxide 16.0 L BUN 33 H Creatinine 2.54 H Estim Creat Clear Calc 22.82 Est GFR (MDRD) Af Amer 27 L Est GFR (MDRD) Non-Af 22 L BUN/Creatinine Ratio 13.0 Glucose 68 L Calcium 8.2 L Phosphorus 3.2 Albumin 2.3 L POC Glucose 07/08/17 07/08/17 07/07/17 06:51 06:25 21:17 POC Glucose 75 67 L 92 07/07/17 07/07/17 07/07/17 17:13 16:47 11:26 POC Glucose 85 66 L 93 Microbiology 07/06/17 18:25 Urine Culture - Preliminary Urine, Clean Catch Streptococcus group B 07/06/17 20:25 Respiratory Panel (PCR) - Final Mucosa - Nose Assessment/Plan Active and Suspected Problems (Last Updated 04/29/17 @ 09:53 by Catherine Barboza) Gastroenteritis (Acute) 1. Acute on CKD stage IV. Creatinine 2.7 on admission improved to 2.5 with IV hydration. History of diabetic nephropathy, obstructive uropathy self-catheterization twice a day. She likely had dehydration from persistent nausea vomiting. Continue with hydration. Follow-up with vascular surgeon for dialysis access as outpatient. Reschedule her appointment that was scheduled for today. 2. UTI with strep on IV ceftriaxone. 3. Gastroenteritis. Nausea vomiting diarrhea improved. Fever resolved. Respiratory panel influenza negative 4. Obstructive uropathy status post Ross catheter to CD with dark buddy urine. 5. DM type II sugar stable 6. Hypertension with stable blood pressures 7. Morbid obesity 8. Anemia of chronic disease hemoglobin stable 9.3 g.
--- NOTE | 2017-07-08 11:32 | CON.PCM_ITS ---
Consultation - Renal 07/08/17 PCP/ Referring MD: Requesting physician: Bhupinder Peters Primary care physician: Melvi Eastman Reason for Consultation:: CKD 4 - History of Present Illness History of Present Illness: The patient is a 42 y/o F well known to me with neurogenic bladder, CKD stage IV due to obstructive nephropathy self cath twice a day, diabetic nephropathy presents with nausea, vomiting, fever since last Saturday. She had a temperature of 101 during hospitalization. She admits to some diarrhea on Saturday. Creatinine was 2.7 on admission improved down to 2.5 EGFR 27 cc/min receiving IV fluids and IV antibiotic therapy for UTI. She denied any change in her urinary output. She denied any flank pain, tenderness or dysuria. She continues to have nausea. Diarrhea has resolved. She denied any chest pain or shortness of breath. She was scheduled to follow up with Dr. Patricia for access placement today as an outpatient. She had vein mapping done on July 02. - Allergies Allergies: Allergies ciprofloxacin [From Cipro] Adverse Reaction (Verified 07/06/17 22:40) Vomiting contrast dye Allergy (Severe, Uncoded 07/06/17 22:40) Anaphylaxis - Current Medications Current Medications: Current Medications Acetaminophen (Tylenol) 650 mg PO Q6H PRN PRN PRN Reason: Mild Pain (scale 0-3)/T>100.7 Al Hydroxide/Mg Hydroxide (Mylanta Ii) 30 ml PO Q6H PRN PRN PRN Reason: Gastric burning Aspirin (Ecotrin) 81 mg PO DAILY@0800 [facility] Last Admin: 07/08/17 08:40 Dose: 81 mg Dextrose (D50w Syringe) 0 gm IV X1 PRN; Protocol PRN Reason: Hypoglycemia Dicyclomine HCl (Bentyl) 20 mg PO TIDAC [facility] Last Admin: 07/08/17 06:18 Dose: 20 mg Duloxetine HCl (Cymbalta) 60 mg PO DAILY [facility] Last Admin: 07/08/17 08:41 Dose: 60 mg Enoxaparin Sodium (Lovenox) 30 mg SC DAILY@1000 [facility] Last Admin: 07/08/17 08:42 Dose: 30 mg Ferrous Sulfate (Ferrous Sulfate) 325 mg PO BIDCM [facility] Last Admin: 07/08/17 08:41 Dose: 325 mg Glucagon () 1 mg IM .X1 PRN PRN Reason: Hypoglycemia Hydralazine HCl (Apresoline Iv) 10 mg IV Q4H PRN PRN PRN Reason: SBP > 160 Last Admin: 07/08/17 06:43 Dose: 10 mg Sodium Chloride () 1,000 mls @ 125 mls/hr IV .Q8H [facility] Last Admin: 07/08/17 08:38 Dose: 125 mls/hr Ceftriaxone Sodium (Rocephin) 1 gm in 50 mls @ 100 mls/hr IV Q24 [facility] Last Admin: 07/08/17 09:59 Dose: 100 mls/hr Insulin Aspart (Novolog Flexpen ([facility])) 0 units SC ACHS [facility] PRN Reason: Protocol Last Admin: 07/08/17 06:42 Dose: Not Given Insulin Detemir (Levemir ([facility])) 25 units SC QHS [facility] Last Admin: 07/07/17 21:20 Dose: 25 units Magnesium Hydroxide (Milk Of Magnesia) 30 ml PO DAILY PRN PRN PRN Reason: Constipation Metoprolol Tartrate (Lopressor (Beta Crystal)) 25 mg PO BID [facility] Last Admin: 07/08/17 08:42 Dose: 25 mg Morphine Sulfate () 2 - 4 mg IV Q3H PRN PRN PRN Reason: Severe Pain (pain scale 6-10) Last Admin: 07/07/17 20:24 Dose: 2 mg Morphine Sulfate () 1 - 2 mg IV Q4H PRN PRN PRN Reason: Moderate Pain (pain scale 4-5) Morphine Sulfate () 2 - 4 mg IV Q3H PRN PRN PRN Reason: Severe Pain (pain scale 6-10) Nutritional Formula (Lactose Free) (Ensure Clear) 120 ml PO 4X/DAY [facility] Last Admin: 07/08/17 08:37 Dose: 120 ml Ondansetron HCl (Zofran) 4 mg IV Q8H PRN PRN PRN Reason: NAUSEA Last Admin: 07/07/17 04:03 Dose: 4 mg Oxycodone HCl (Oxyir) 5 mg PO Q4H PRN PRN PRN Reason: Moderate Pain (pain scale 4-5) Pantoprazole Sodium (Protonix) 20 mg PO BID [facility] Last Admin: 07/08/17 08:39 Dose: 20 mg Promethazine HCl (Phenergan Iv) 12.5 mg IV Q6H PRN PRN PRN Reason: NAUSEA/VOMITING Last Admin: 07/07/17 09:59 Dose: 12.5 mg Sodium Chloride () 5 - 30 ml IV UD PRN PRN Reason: SALINE FLUSH Last Admin: 07/08/17 06:17 Dose: 10 ml - Past Medical History Past Medical History (Chronic Problems): Chronic Problems (Last Updated 04/29/17 @ 09:53 by Catherine Barboza) Morbid obesity (Chronic) HTN (hypertension) (Chronic) Bilateral hydronephrosis (Chronic) Iron deficiency anemia (Chronic) Type II diabetes mellitus (Chronic) Coronary artery disease (Chronic) Chronic low back pain (Chronic) Hydroureter (Chronic) Hydronephrosis (Chronic) Bladder outlet obstruction (Chronic) - Past Surgical History Surgical History: - - PCI, BL Ureteral stent placements and subsequent removal. - Social History Smoking Status: Never smoker Alcohol: None Drugs: None - Family History Maternal History Items: Unknown - Patient adopted Paternal History Items: Unknown Review of Systems Constitutional: Reports: Anorexia, Chills, Fever, Weakness, Fatigue HEENT: Denies: Head Aches Cardiovascular: Denies: Chest Pain, Edema, Syncope Respiratory: Denies: Cough, Shortness of Breath Gastrointestinal: Reports: Diarrhea, Nausea - ?1 day, Vomiting. Denies: Abdominal Pain Genitourinary: Reports: Retention - History of neurogenic bladder, - - Self cath , - - Denied flank pain. Denies: Dysuria Musculoskeletal: Reports: - - No flank pain Neurological: Denies: Tremor, Seizures Psychiatric: Reports: Depression Hematologic/ Lymphatic: Reports: Anemia Patient Problems: Active and Suspected Problems (Last Updated 04/29/17 @ 09:53 by Catherine Barboza) Gastroenteritis (Acute) - Physical Exam General: Alert, Oriented x3, Cooperative, No apparent distress HEENT: PERRLA, EOMI Oral: Dry Mucosa Neck: Supple Lungs: Clear to auscultation Cardiovascular: Regular rate, No rub noted Abdomen: Bowel Sounds Present, Soft, Non Tender, Non-Distended, Obese Extremities: No edema Skin: No rashes Musculoskeletal: No Muscle Wasting Neurological: Cranial nerves II-XII grossly intact Psych/Mental Status: Normal Affect, Appropriate, Alert and oriented to time, place, person, mood and affect Vital Signs Temp Pulse Resp BP Pulse Ox 98.1 F 75 16 159/96 H 96 07/08/17 08:23 07/08/17 08:42 07/08/17 08:23 07/08/17 08:23 07/08/17 08:23 Oxygen Delivery Method Room Air Weight: 101.1 kg Body Mass Index (BMI) 40.7 Intake and Output for Last 24 Hours 07/06/17 07/07/17 07/08/17 23:59 23:59 23:59 Intake Total 4753 / 4753 2286 / 2286 Output Total 3325 / 3325 1250 / 1250 Balance 1428 / 1428 1036 / 1036 Laboratory Tests Past 24 Hrs 07/08/17 07/08/17 06:00 06:00 WBC 7.0 RBC 3.78 L Hgb 9.3 L Hct 28.2 L MCV 74.6 L MCH 24.6 L MCHC 33.0 RDW 13.6 RDW Differential 36.0 Plt Count 292 MPV 8.9 Immature Gran % (Auto) 0.300 Neut % (Auto) 66.9 Lymph % (Auto) 17.6 L [place] % (Auto) 14.8 H Eos % (Auto) 0.3 Baso % (Auto) 0.1 Absolute Neuts (auto) 4.7 Absolute Lymphs (auto) 1.22 Total Counted Not Reportable Platelet Estimate ADEQUATE Hypochromasia 1+ Microcytosis 2+ Target Cells RARE Tear Drop Cells 1+ Sodium 140 Potassium 4.1 Chloride 114 H Carbon Dioxide 16.0 L BUN 33 H Creatinine 2.54 H Estim Creat Clear Calc 22.82 Est GFR (MDRD) Af Amer 27 L Est GFR (MDRD) Non-Af 22 L BUN/Creatinine Ratio 13.0 Glucose 68 L Calcium 8.2 L Phosphorus 3.2 Albumin 2.3 L POC Glucose 07/08/17 07/08/17 07/07/17 06:51 06:25 21:17 POC Glucose 75 67 L 92 07/07/17 07/07/17 07/07/17 17:13 16:47 11:26 POC Glucose 85 66 L 93 Microbiology 07/06/17 18:25 Urine Culture - Preliminary Urine, Clean Catch Streptococcus group B 07/06/17 20:25 Respiratory Panel (PCR) - Final Mucosa - Nose Assessment/Plan Active and Suspected Problems (Last Updated 04/29/17 @ 09:53 by Catherine Barboza) Gastroenteritis (Acute) 1. Acute on CKD stage IV. Creatinine 2.7 on admission improved to 2.5 with IV hydration. History of diabetic nephropathy, obstructive uropathy self- catheterization twice a day. She likely had dehydration from persistent nausea vomiting. Continue with hydration. Follow-up with vascular surgeon for dialysis access as outpatient. Reschedule her appointment that was scheduled for today. 2. UTI with strep on IV ceftriaxone. 3. Gastroenteritis. Nausea vomiting diarrhea improved. Fever resolved. Respiratory panel influenza negative 4. Obstructive uropathy status post Ross catheter to CD with dark buddy urine. 5. DM type II sugar stable 6. Hypertension with stable blood pressures 7. Morbid obesity 8. Anemia of chronic disease hemoglobin stable 9.3 g.
[2017-07-08] MEDS: oxyCODONE 5 MG Tablet PO ×2 (11:39→20:18)
[2017-07-08] MEDS: Acetaminophen 325 MG Tablet 650 MG PO (11:39)
[2017-07-08] MEDS: Ondansetron 4 MG/2 ML Vial IV (11:39)
[2017-07-08 11:41] LABS: Bedside Glucose 107 mg/dL (70-110)
[2017-07-08 16:56] LABS: Bedside Glucose 82 mg/dL (70-110)
[2017-07-08 22:40] LABS: Bedside Glucose 83 mg/dL (70-110)
[2017-07-09 03:30] VITALS: BP 159/93; PULSE 69; RESP 16; TEMP 36.9; O2SAT 100
[2017-07-09] MEDS: Dicyclomine 10 MG Capsule 20 MG PO (07:01)
[2017-07-09] MEDS: 0.9% Normal Saline 1,000 ML 125 ML IV (07:02)
[2017-07-09 07:05] LABS: Bedside Glucose 90 mg/dL (70-110)
[2017-07-09 07:55] VITALS: O2SAT 98
[2017-07-09 08:52] VITALS: BP 160/94; PULSE 71; RESP 18; TEMP 36.3; O2SAT 97
--- NOTE | 2017-07-09 09:22 | PCM.PN.REN ---
Patient Problems: Active and Suspected Problems (Last Updated 04/29/17 @ 09:53 by Catherine Barboza) Gastroenteritis (Acute) Subjective: nausea improved. Labs pending. Remains on iv fluids. No edema or SOB. - Physical Exam General: Alert, Oriented x3, Cooperative Lungs: Clear to auscultation Cardiovascular: Regular rate Abdomen: Bowel Sounds Present, Soft, Non Tender, Non-Distended, Obese Extremities: No edema Skin: No rashes Psych/Mental Status: Alert and oriented to time, place, person, mood and affect Vital Signs Temp Pulse Resp BP Pulse Ox 97.4 F L 71 18 160/94 H 97 07/09/17 08:52 07/09/17 08:52 07/09/17 08:52 07/09/17 08:52 07/09/17 08:52 Oxygen Delivery Method Room Air Weight: 101.1 kg Body Mass Index (BMI) 40.7 Intake and Output for Last 24 Hours 07/07/17 07/08/17 07/09/17 23:59 23:59 23:59 Intake Total 4753 / 4753 5134 / 5134 1248 / 1248 Output Total 3325 / 3325 2100 / 2100 650 / 650 Balance 1428 / 1428 3034 / 3034 598 / 598 POC Glucose 07/09/17 07/08/17 07/08/17 06:58 22:27 16:46 POC Glucose 90 83 82 07/08/17 11:30 POC Glucose 107 Medical Necessity - Tobacco Use Smoking Status: Never smoker Tobacco Use: Non-smoker Assessment/Plan Active and Suspected Problems (Last Updated 04/29/17 @ 09:53 by Catherine Barboza) Gastroenteritis (Acute) 1. Acute on CKD stage IV. Creatinine 2.7 on admission improved to 2.5 with IV hydration. Await labs from today. History of diabetic nephropathy, obstructive uropathy self-catheterization only twice a day per pt. She likely had dehydration from persistent nausea vomiting. Continue with hydration. Follow-up with vascular surgeon for dialysis access as outpatient. F/U with me on 08/22. 2. UTI with strep on IV ceftriaxone. 3. Gastroenteritis. Nausea vomiting diarrhea improved. Fever resolved. Respiratory panel influenza negative 4. Obstructive uropathy status post Ross catheter to CD with dark buddy urine. 5. DM type II sugar stable 6. Hypertension with elevated BP. STart amlodipine 5mg daily 7. Morbid obesity 8. Anemia of chronic disease hemoglobin stable 9.3 g. 9. Metabolic acidosis, recheck today
[2017-07-09 09:46] VITALS: BP 160/94; PULSE 71
[2017-07-09] MEDS: DULoxetine Hcl 60 MG Capsule PO (09:46)
[2017-07-09] MEDS: Ferrous Sulfate 325 MG Tablet PO (09:46)
[2017-07-09] MEDS: Metoprolol Tartrate 25 MG Tablet PO (09:46)
[2017-07-09] MEDS: Aspirin E.C. 81 MG Tablet PO (09:46)
[2017-07-09] MEDS: Enoxaparin 30 MG/0.3 ML Syringe SC (09:46)
[2017-07-09] MEDS: Pantoprazole Sodium 20 MG Tablet PO (09:47)
[2017-07-09] MEDS: amLODIPine 5 MG Tablet PO (09:49)
[2017-07-09] MEDS: Ceftriaxone 1 GM/50 ML BAG IV (10:04)
[2017-07-09 10:28] LABS: Anion Gap 11 (5-15); BUN 27 mg/dL (7-18); BUN/Creat Ratio 11.4 RATIO (10-20); Calcium,Total 8.1 mg/dL (8.5-10.1); Chloride 115 mmol/L (98-107); Creatinine, Serum 2.36 mg/dL (0.55-1.02); EST Glomerular Filtration Rate 24 mL/min (>60); Est Glom Filt Rate - Afr Amer 29 mL/min (>60); Estimated Creatinine Clearance 24.56 ml/min; Glucose 89 mg/dL (74-106); Potassium 4.2 mmol/L (3.5-5.1); Sodium Level 144 mmol/L (136-145)
--- NOTE | 2017-07-09 11:03 | DCINST_ITS ---
- Discharge Diagnoses Current Active Problems: Current Active and Chronic Problems (Last Updated 04/29/17 @ 09:53 by Catherine Barboza) Morbid obesity (Chronic) HTN (hypertension) (Chronic) Gastroenteritis (Acute) You will use the following diet at home:: Calorie/Carbohydrate Controlled ( specify 1200, 1400, etc) - 1800 ADA diet, Renal (restricted protein/sodium) Discharge Activity: May not drive while taking narcotic pain medications. Instructions: ED Gastroenteritis Viral Allergies/Adverse Reactions: Allergies ciprofloxacin [From Cipro] Adverse Reaction (Verified 07/06/17 22:40) Vomiting contrast dye Allergy (Severe, Uncoded 07/06/17 22:40) Anaphylaxis Medications to take at Discharge Duloxetine Hcl [Cymbalta] 60 mg PO DAILY 03/08/17 Ergocalciferol [Vitamin D] 50,000 unit PO WE 04/18/17 Ferrous Sulfate [Iron] 325 mg PO BID 04/18/17 Insulin Glargine,Hum.rec.anlog [Basaglar Kwikpen U-100] 25 unit SQ QHS 04/18/17 Hydrocodone Bitart/Apap 5-325 [[place] 5/325] 1 tablet PO Q6H PRN PRN 07/06/17 Amlodipine [Norvasc] 5 mg PO DAILY #30 tab 07/09/17 Aspirin E.C. [Ecotrin] 81 mg PO DAILY@0800 #30 tab 07/09/17 Cefadroxil [Duracef] 500 mg PO BID #6 cap 07/09/17 Famotidine [Pepcid] 20 mg PO BID #30 tab 07/09/17 Ferrous Sulfate 325 mg PO BIDCM tablet 07/09/17 Metoclopramide HCl [Reglan] 5 mg PO TIDCM PRN #30 tab 07/09/17 Ondansetron HCl [Zofran] 4 mg PO Q6H PRN #30 tab 07/09/17 The following prescriptions were given: Amlodipine [Norvasc] 5 mg PO DAILY #30 tab Aspirin E.C. [Ecotrin] 81 mg PO DAILY@0800 #30 tab Cefadroxil [Duracef] 500 mg PO BID #6 cap Famotidine [Pepcid] 20 mg PO BID #30 tab Ondansetron HCl [Zofran] 4 mg PO Q6H PRN #30 tab PRN Reason: nausea Metoclopramide HCl [Reglan] 5 mg PO TIDCM PRN #30 tab PRN Reason: Nausea Please follow up with your Primary Care Physician in: in 2 weeks Please Follow Up With: Betty Odonnell DO When: on 08/22/17 Please Follow Up With: Mohinder Patricia MD When: for AV fistula
--- NOTE | 2017-07-09 11:03 | PCM.DC.SUM ---
Discharge Date and Diagnosis Date of Admission: 07/06/17 Date of Discharge: 07/09/17 - Primary Discharge Diagnosis Active and Suspected Problems (Last Updated 04/29/17 @ 09:53 by Catherine Barboza) 1. Acute gastroenteritis, most probably viral resolved. 2. Complicated catheter associated group B streptococcus UTI (self catheterization) with neurogenic bladder and bilateral hydronephrosis with history of nephroureterolithiasis. Acute kidney injury on chronic kidney disease stage IV; most probably associated with diabetic nephropathy - Secondary Discharge Diagnosis Chronic Problems (Last Updated 04/29/17 @ 09:53 by Catherine Barboza) Morbid obesity (Chronic) HTN (hypertension) (Chronic) Bilateral hydronephrosis (Chronic) Iron deficiency anemia (Chronic) Type II diabetes mellitus (Chronic) Coronary artery disease (Chronic) Chronic low back pain (Chronic) Hydroureter (Chronic) Hydronephrosis (Chronic) Bladder outlet obstruction (Chronic) Hospital Course and Treatment Summary of Care Provided: [] There is a 42-year-old female with history of diabetes mellitus type 2 complicated with diabetic neuropathy and neurogenic bladder with self catheterization, hypertension, coronary artery disease status post PCI, bilateral obstructive uropathy due to nephrolithiasis with bilateral ureteric stents removed on April 18 and iron versus anemia was admitted with nausea, vomiting and diarrhea. No GI bleed. Patient also had low-grade fever. CT abdomen was done and did not show acute finding but bilateral moderate hydronephrosis with distention of the urinary bladder. The patient was seen and examined today. General: Alert, Oriented x3, Cooperative HEENT: Atraumatic, PERRLA, EOMI, Normocephalic Neck: Supple, No JVD, Negative Carotid Bruits Lungs: Clear to auscultation, Normal air movement Cardiovascular: Regular rate, Normal S1, Normal S2, No murmurs Abdomen: Bowel Sounds Present, Soft, Non Tender, Non-Distended, No renal angle tenderness Extremities: No edema, Capillary Refill Less than 3 Seconds Skin: - - Chronic scabbed wound/ulcer of her abdominal skin Musculoskeletal: No Tenderness to Palpation of Joints or Extremities Neurological: Cranial nerves II-XII grossly intact Psych/Mental Status: Normal Affect, Appropriate 1. Acute gastroenteritis, most probably viral resolved. Patient has mild nausea which is resolved. Her diet was advanced from clear liquid to soft diet and patient tolerated well. CBC showed no leucocytosis. BMP showed Cr of 3.20, down to 2.36 today. has a history of CKD 4 on IVF NS; will continue on IV ceftriaxone and IV zofran CT abdomen: no acute bowel abnormalities, no ascites, free air or significant inflammation. Nonspecific prominent lymph nodes in the retroperitoneum, and mesentery, likely reactive. Moderate hydronephrosis bilaterally and distension of urine bladder. 2. Complicated catheter associated group B streptococcus UTI (self catheterization) with neurogenic bladder and bilateral hydronephrosis with history of nephroureterolithiasis. has neurogenic bladder; passes urine but has to do straight cath q8hrs; isnt usually very compliant. UA showed cloudy urine with LE-500, and occult blood-50, with wbc>100. Urine culture shows group B streptococcus, more than 100,000. Patient discharged on cefadroxil for 3 more days to complete 7 days of antibiotic. 3. CAD s/p PCI: stable. On aspirin. not on statin.on metoprolol 25mg bid. 4. DM2; on insulin sliding scale and lantus 25 IU qhs. Accuchecks ACHS. fasting sugar today was 89. Lantus dose adjusted accordingly 5. HTn: on metoprolol 25mg bid. Hydralazine PRN 6. Acute kidney injury on chronic kidney disease stage IV: baseline Cr ~ 4. BMP showed Cr of 3.20, down to 2.36 today. has a history of CKD [address] Odonnell who has been consulted. She had vein mapping done on July 02 for future need for hemodialysis. 7. anemia of chronic disease secondary to CKD, stage IV: Hb was 10.3 on admission. drop may be hemodilutional. Hb 9.3. 8. Anxiety and depresison: on cymbalta 9. DVT prophylaxis: heparin and PCDs 10. GI prophylaxis: pantoprazole Discharge medication reconciliation done. Discharge follow-up instructions discussed with the patient including follow with Dr. Rodgers for AV fistula surgery and shipfitter Dr. Odonnell. Patient also follows [facility] urologist. Total time spent, exact 35 minutes on discharge meds reconciliation, examination, review of imaging and blood test and discussion with the patient on follow-up instructions. Discharge Activity: May not drive while taking narcotic pain medications. Home Medications: Medications to take at Discharge Duloxetine Hcl [Cymbalta] 60 mg PO DAILY 03/08/17 Ergocalciferol [Vitamin D] 50,000 unit PO WE 04/18/17 Ferrous Sulfate [Iron] 325 mg PO BID 04/18/17 Insulin Glargine,Hum.rec.anlog [Basaglar Kwikpen U-100] 25 unit SQ QHS 04/18/17 Hydrocodone Bitart/Apap 5-325 [[place] 5/325] 1 tablet PO Q6H PRN PRN 07/06/17 Amlodipine [Norvasc] 5 mg PO DAILY #30 tab 07/09/17 Aspirin E.C. [Ecotrin] 81 mg PO DAILY@0800 #30 tab 07/09/17 Cefadroxil [Duracef] 500 mg PO BID #6 cap 07/09/17 Famotidine [Pepcid] 20 mg PO BID #30 tab 07/09/17 Ferrous Sulfate 325 mg PO BIDCM tablet 07/09/17 Metoclopramide HCl [Reglan] 5 mg PO TIDCM PRN #30 tab 07/09/17 Ondansetron HCl [Zofran] 4 mg PO Q6H PRN #30 tab 07/09/17 Following Prescrptions Were Given to Patient: Amlodipine [Norvasc] 5 mg PO DAILY #30 tab Aspirin E.C. [Ecotrin] 81 mg PO DAILY@0800 #30 tab Cefadroxil [Duracef] 500 mg PO BID #6 cap Famotidine [Pepcid] 20 mg PO BID #30 tab Ondansetron HCl [Zofran] 4 mg PO Q6H PRN #30 tab PRN Reason: nausea Metoclopramide HCl [Reglan] 5 mg PO TIDCM PRN #30 tab PRN Reason: Nausea Primary Care Physician: Melvi Eastman MD [Primary Care Provider] - Please follow up with your Primary Care Physician in: in 2 weeks Please Follow Up With: Betty Odonnell DO When: on 08/22/17 Please Follow Up With: Mohinder Patricia MD When: for AV fistula Patient Instructions: ED Gastroenteritis Viral Medical Necessity - Tobacco Use Smoking Status: Never smoker Tobacco Use: Non-smoker Meaningful Use Info Meaningful Use Diagnoses (Choose all that apply): None applicable Code Visit Inpatient E&M: [address] [facility]
[2017-07-09 11:21] VITALS: BP 141/94; PULSE 68; RESP 18; TEMP 36.4; O2SAT 99
[2017-07-09 11:21] LABS: Bedside Glucose 142 mg/dL (70-110)
[2017-07-09 11:42] VITALS: BP 141/94; PULSE 68; RESP 18; TEMP 36.4; O2SAT 99
--- NOTE | 2017-07-10 14:44 | CASEMGMT ---
RN CM f/u phone call. Attempted call, no answer. Haleigh BSN RN ACM
--- NOTE | 2017-07-11 14:32 | CASEMGMT ---
Call to pt. States she is feeling well, improving, no questions re: post hospital care. She is making own f/u appointments, has prescriptions- no questions. No further dc needs identified @ this time. Haleigh GERMAINN RN ACM
== END 2017-07-09 11:44 | disposition home or self-care (01) | DRG 182 ==
LOC: ED 19:16 → MS2 21:21
PROVIDERS: Internal Medicine Nephrology; Student in an Organized Health Care Education/Training Program; Admitting Provider Family Medicine; Emergency Provider Emergency Medicine; Family Provider Internal Medicine; PCP Internal Medicine; Visit Provider Internal Medicine
DX: K52.9 Noninfective gastroenteritis and colitis, unspecified (principal); T83.511A Infection and inflammatory reaction due to indwelling urethral catheter, initial encounter; N39.0 Urinary tract infection, site not specified; N18.4 Chronic kidney disease, stage 4 (severe); N32.0 Bladder-neck obstruction; N13.30 Unspecified hydronephrosis; N17.9 Acute kidney failure, unspecified; E87.2 Acidosis; B95.1 Streptococcus, group B, as the cause of diseases classified elsewhere; Y73.8 Miscellaneous gastroenterology and urology devices associated with adverse incidents, not elsewhere classified; N31.9 Neuromuscular dysfunction of bladder, unspecified; E11.22 Type 2 diabetes mellitus with diabetic chronic kidney disease; I12.9 Hypertensive chronic kidney disease with stage 1 through stage 4 chronic kidney disease, or unspecified chronic kidney disease; D63.1 Anemia in chronic kidney disease; E66.01 Morbid (severe) obesity due to excess calories; Z68.41 Body mass index [BMI] 40.0-44.9, adult; Z71.3 Dietary counseling and surveillance; D50.9 Iron deficiency anemia, unspecified; I25.10 Atherosclerotic heart disease of native coronary artery without angina pectoris; E11.40 Type 2 diabetes mellitus with diabetic neuropathy, unspecified; Z79.4 Long term (current) use of insulin; E11.21 Type 2 diabetes mellitus with diabetic nephropathy; G89.29 Other chronic pain; F41.9 Anxiety disorder, unspecified; F32.9 Major depressive disorder, single episode, unspecified
CPT/HCPCS: 36415; 51702; 74176; 80048; 80053; 80069; 81001; 82962; 83605; 83690; 83735; 84484; 85025; 87040; 87077; 87086; 87088; 87633; 87804; 97802; 99285; J7030; A4216; J2405; J3490

== ENCOUNTER 2017-08-02 06:10 | Day surgery (SDC) | payer MEDICAID, SELFPAY ==
--- NOTE | 2017-08-02 06:22 | EKG12_ITS ---
Test Reason : PRE OP Blood Pressure : / mmHG Vent. Rate : 075 BPM Atrial Rate : 075 BPM P-R Int : 136 ms QRS Dur : 094 ms QT Int : 396 ms P-R-T Axes : 033 020 069 degrees QTc Int : 442 ms Normal sinus rhythm Septal infarct (cited on or before 21-NOV-2007) Abnormal ECG When compared with ECG of 19-MAR-2017 23:01, Vent. rate has decreased BY 45 BPM Confirmed by FILI VINES, INOCENCIO ([id number]), art editor JACOBO GILLILAND ([id number]) on 08/05/2017 2:43:19 PM Referred By: Mohinder Patricia Confirmed By:INOCENCIO PENN MD
[2017-08-02 06:37] LABS: Internal QC Validated? YES +Cl - CLEAR BKGD; Pregnancy, Urine Negative Negative
[2017-08-02 06:41] VITALS: BP 157/95; PULSE 75; RESP 16; TEMP 36.4; O2SAT 100; BMI 44.1
[2017-08-02 06:50] LABS: Hematocrit 27.6 % (37-47); Mean Corp Hgb Conc 32.6 g/gl (32-36); Mean Corpuscular Hgb 24.5 pg (27.0-32.0); Platelet Count 307 K/mm3 (150-450); RBC Distribution Width CV 13.9 % (11.6-14.6); RBC Distribution Width SD 38.1 fl (35.1-43.9); Red Blood Count 3.68 M/mm3 (4.2-5.4); White Blood Count 7.6 K/mm3 (4.4-11.0)
[2017-08-02 06:58] LABS: Scan Indicated on CBC? Y/N NO
[2017-08-02 07:06] LABS: Anion Gap 9 (5-15); BUN 54 mg/dL (7-18); BUN/Creat Ratio 16.3 RATIO (10-20); Chloride 109 mmol/L (98-107); Creatinine, Serum 3.31 mg/dL (0.55-1.02); EST Glomerular Filtration Rate 16 mL/min (>60); Est Glom Filt Rate - Afr Amer 20 mL/min (>60); Estimated Creatinine Clearance 17.51 ml/min; Glucose 73 mg/dL (74-106); Potassium 5.1 mmol/L (3.5-5.1); Sodium Level 139 mmol/L (136-145)
[2017-08-02 07:26] LABS: Bedside Glucose 63 mg/dL (70-110)
[2017-08-02] MEDS: Heparin Injection (Vial) 5,000 UNIT/ML VIAL 5000 UNIT (09:00)
[2017-08-02] MEDS: Bupivacaine Mpf 0.5% 30 ML VIAL (09:00)
[2017-08-02 09:13] VITALS: BP 124/81; BP 157/95; PULSE 75; RESP 16; TEMP 36.4; O2SAT 97
--- NOTE | 2017-08-02 09:15 | DCINST_ITS ---
Discharge Diet: Renal Diet Discharge Activity: May Not Drive - for 2-3 days or while taking narcotic pain medications., May Shower, May Take a Tub Bath - in 5 days. Lifting Restrictions: 5 pounds Keep extremity elevated above heart level: - - Keep arm elevated above the heart level for 3 days. Additional Activity Instructions:: Exercise hand vigorously with a stress ball. Call your doctor if your incision/area has: Continuous Slow Oozing, Sudden Increased Bleeding - apply pressure and call your doctor., Increased Pain/ Swelling, Increased Redness, Foul Smelling Discharge Call your doctor if you observe: Fever of 101 or Higher Suture Line Care: Avoid Pulling/Pushing, Avoid Pinching/Bending Cleanse incision/area with: Keep Dressing Clean & Dry Additional Dressing/Incision Instructions:: You may shower over your dressing. You may leave your plastic dressing on for 2-3 days. You may then remove it. Please leave the Steri-Strips on for an additional 1 week Allergies/Adverse Reactions: Allergies ciprofloxacin [From Cipro] Adverse Reaction (Verified 07/31/17 15:09) Vomiting contrast dye Allergy (Severe, Uncoded 07/06/17 22:40) Anaphylaxis Medications to take at Discharge Duloxetine Hcl [Cymbalta] 60 mg PO DAILY 03/08/17 Ergocalciferol [Vitamin D] 50,000 unit PO WE 04/18/17 Insulin Glargine,Hum.rec.anlog [Basaglar Kwikpen U-100] 25 unit SQ QHS 04/18/17 Hydrocodone Bitart/Apap 5-325 [Nezperce 5/325] 1 tab PO Q6H PRN PRN 07/06/17 Amlodipine [Norvasc] 5 mg PO DAILY #30 tab 07/09/17 Aspirin E.C. [Ecotrin] 81 mg PO DAILY@0800 #30 tab 07/09/17 Famotidine [Pepcid] 20 mg PO BID #30 tab 07/09/17 Ferrous Sulfate 325 mg PO BIDCM tab 07/09/17 Metoclopramide HCl [Reglan] 5 mg PO TIDCM PRN #30 tab 07/09/17 Ondansetron HCl [Zofran] 4 mg PO Q6H PRN #30 tab 07/09/17 gabapentin 300 mg capsule 300 mg PO BID cap 07/25/17 Glimepiride [Amaryl] 2 mg PO DAILY 07/31/17 Metoprolol Tartrate [Lopressor (beta hellen)] 25 mg PO DAILY 07/31/17 Potassium Citrate [Potassium Citrate ER] 10 meq PO TID 07/31/17 Hydrocodone Bitart/Apap 5-325 [Nezperce 5MG-325MG] 1 tablet PO Q6H PRN PRN 3 Days # 6 tablet 08/02/17 The following prescriptions were given: Hydrocodone Bitart/Apap 5-325 [Nezperce 5MG-325MG] 1 tablet PO Q6H PRN PRN 3 Days # 6 tablet PRN Reason: Pain Primary Care Physician: Melvi Eastman MD [Primary Care Provider] - Please Follow Up With: Mohinder Patricia MD - [phone] When: Call to make an appointment for suture removal and follow up in 10 days.
--- NOTE | 2017-08-02 09:15 | PCM.OPRPT ---
Problem List (1) Chronic renal failure, stage 4 (severe) Status: Acute Report of Operation Date of Procedure: 08/02/17 Pre-Operative Diagnosis: Stage IV renal insufficiency Post-Operative Diagnosis: Stage IV renal insufficiency Surgery/Procedure Performed:: Stage I left upper extremity basilic vein to brachial artery arteriovenous fistula creation Description of Surgical Findings:: Timeout and informed consent was obtained. 42-year-old female was taken to the operating place upon the table she had monitored anesthesia care. Clean case. No antibiotics required. 1% lidocaine mixed 50-50 with 0.5% Marcaine was used as local anesthetic. A total of 15 cc was used. Ultrasound was used to map the course of the basilic vein right at the antecubital space. I instilled local. I made a oblique incision along the course of the vein and I dissected the vein free. I dissected down to the brachial artery and circumferential control was obtained. The patient received 10,000 units of heparin intravenously. The vein was secured distally with a Hemoclip. I then used peripheral vascular clamps on the artery mid 11 blade with an arteriotomy extended that with Gregory scissors. A end-to-side venous to arterial anastomosis was created with a running 7-0 Prolene. There was good hemostasis at the completion. A single repair suture of 7-0 Prolene was placed. There was a good Doppler thrill upon completion. The patient is noted to be morbidly obese and so this cannot be palpated. The wound was closed in layers with interrupted and running 4-0 Monocryl. Skin edges approximated with Steri-Strips. Telfa and OpSite dressings applied. Sponge instrument and needle counts were reported to the surgeon to be correct. Blood loss was minimal. Specimens none, drains none, blood loss minimal Mohinder Patricia M.D., F.A.C.S.
[2017-08-02 09:18] VITALS: BP 123/80; BP 157/95; PULSE 74; RESP 15; O2SAT 97
[2017-08-02 09:23] VITALS: BP 131/87; BP 157/95; PULSE 74; RESP 16; O2SAT 97
[2017-08-02 09:28] VITALS: BP 135/87; BP 157/95; PULSE 73; RESP 16; TEMP 36.3; O2SAT 96
[2017-08-02 10:05] LABS: Bedside Glucose 61 mg/dL (70-110)
[2017-08-02 10:50] LABS: Bedside Glucose 92 mg/dL (70-110)
[2017-08-02 11:16] VITALS: BP 123/82; BP 157/95; PULSE 76; RESP 16; TEMP 36.1; O2SAT 100
== END 2017-08-02 11:34 | disposition home or self-care (01) ==
LOC: SDC 06:11 → AC 06:12
PROVIDERS: Anesthesiology; Family Provider Internal Medicine; PCP Internal Medicine; Visit Provider Surgery
PROC: (CPT 36819; principal; 2017-08-02 07:45)
DX: Z49.01 Encounter for fitting and adjustment of extracorporeal dialysis catheter (principal); I12.9 Hypertensive chronic kidney disease with stage 1 through stage 4 chronic kidney disease, or unspecified chronic kidney disease; E11.22 Type 2 diabetes mellitus with diabetic chronic kidney disease; N18.4 Chronic kidney disease, stage 4 (severe); E66.01 Morbid (severe) obesity due to excess calories; Z68.41 Body mass index [BMI] 40.0-44.9, adult; Z71.3 Dietary counseling and surveillance; Z79.899 Other long term (current) drug therapy; Z79.4 Long term (current) use of insulin; Z79.82 Long term (current) use of aspirin; I25.10 Atherosclerotic heart disease of native coronary artery without angina pectoris; I25.2 Old myocardial infarction
CPT/HCPCS: 01844; 36819; 36415; 80048; 81025; 82962; 85027; 93005; J7120

== ENCOUNTER → 2017-08-22 13:51 | Outpatient (CLI) | payer MEDICAID, SELFPAY ==
[2017-08-22 17:15] LABS: Hematocrit 28.1 % (37-47); Hemoglobin 9.3 g/dl (12.0-15.0); Mean Corp Hgb Conc 33.1 g/gl (32-36); Mean Corpuscular Hgb 24.5 pg (27.0-32.0); Mean Corpuscular Volume 74.1 fL (81-99); Mean Platelet Vol. 8.6 fl (6.2-12.0); Platelet Count 377 K/mm3 (150-450); RBC Distribution Width CV 13.2 % (11.6-14.6); RBC Distribution Width SD 36.3 fl (35.1-43.9); Red Blood Count 3.79 M/mm3 (4.2-5.4); White Blood Count 7.7 K/mm3 (4.4-11.0)
[2017-08-22 17:17] LABS: Albumin, Serum 3.4 g/dL (3.2-5.0); BUN 41 mg/dL (7-18); BUN/Creat Ratio 12.4 RATIO (10-20); Calcium,Total 9.3 mg/dL (8.5-10.1); Chloride 108 mmol/L (98-107); EST Glomerular Filtration Rate 16 mL/min (>60); Est Glom Filt Rate - Afr Amer 20 mL/min (>60); Ferritin 274 ng/mL (8-252); Glucose 173 mg/dL (74-106); Iron 46 ug/dL (50-170); Iron Binding Capacity,Total 223 ug/dL (250-450); Phosphorus 5.3 mg/dL (2.5-4.9); Potassium 5.4 mmol/L (3.5-5.1); Scan Indicated on CBC? Y/N YES- FLAGS NOTED; Sodium Level 139 mmol/L (136-145)
[2017-08-22 17:32] LABS: Differential Comment SCANNED
== END ==
PROVIDERS: Family Provider Internal Medicine; PCP Internal Medicine; Visit Provider Internal Medicine Nephrology
DX: N18.4 Chronic kidney disease, stage 4 (severe) (principal); D50.9 Iron deficiency anemia, unspecified; N17.9 Acute kidney failure, unspecified
CPT/HCPCS: 36415; 80069; 82728; 83540; 83550; 85027

== ENCOUNTER 2017-08-29 08:53 | Day surgery (SDC) | payer MEDICAID, SELFPAY ==
[2017-08-29] VITALS (7 sets, daily range): BP systolic 135–182; BP diastolic 90–102; PULSE 63–74; RESP 16–18; TEMP 35.9–36.7; O2SAT 94–100; BMI 41.7
[2017-08-29 09:35] LABS: Bedside Glucose 137 mg/dL (70-110)
[2017-08-29] MEDS: Cefazolin 2 GM in 0.9% Normal Saline 100 ML IV (10:56)
[2017-08-29] MEDS: Heparin Injection (Vial) 5,000 UNIT/ML VIAL 5000 UNIT (11:19)
[2017-08-29] MEDS: Bupivacaine Mpf 0.5% 30 ML VIAL (11:19)
--- NOTE | 2017-08-29 13:08 | DCINST_ITS ---
Discharge Diet: Renal Diet Discharge Activity: May Not Drive - for 2-3 days or while taking narcotic pain medications., May Not Shower, May Take a Tub Bath - in 5 days. May shower in (days): 4 Lifting Restrictions: 5 pounds Keep extremity elevated above heart level: - - Keep arm elevated above the heart level for 3 days. Additional Activity Instructions:: Exercise hand vigorously with a stress ball. Call your doctor if your incision/area has: Continuous Slow Oozing, Sudden Increased Bleeding - apply pressure and call your doctor., Increased Pain/ Swelling, Increased Redness, Foul Smelling Discharge Call your doctor if you observe: Fever of 101 or Higher Suture Line Care: Avoid Pulling/Pushing, Avoid Pinching/Bending Cleanse incision/area with: Keep Dressing Clean & Dry Additional Dressing/Incision Instructions:: Please elevate your left arm to limit swelling. You may initiate hand exercises tomorrow. You may unwrap the steve wrap and soft gauze wrap in 2 days. You may reapply dry gauze dressing to the incision site as needed for any oozing. Leave the Steri-Strips in place until your follow-up office appointment Allergies/Adverse Reactions: Allergies ciprofloxacin [From Cipro] Adverse Reaction (Verified 08/12/17 10:41) Vomiting contrast dye Allergy (Severe, Uncoded 07/06/17 22:40) Anaphylaxis Medications to take at Discharge Duloxetine Hcl [Cymbalta] 60 mg PO DAILY 03/08/17 Ergocalciferol [Vitamin D] 50,000 unit PO WE 04/18/17 Insulin Glargine,Hum.rec.anlog [Basaglar Kwikpen U-100] 25 unit SQ QHS 04/18/17 Hydrocodone Bitart/Apap 5-325 [Hubert 5/325] 1 tab PO Q6H PRN PRN 07/06/17 Amlodipine [Norvasc] 5 mg PO DAILY #30 tab 07/09/17 Aspirin E.C. [Ecotrin] 81 mg PO DAILY@0800 #30 tab 07/09/17 Famotidine [Pepcid] 20 mg PO BID #30 tab 07/09/17 Ferrous Sulfate 325 mg PO BIDCM tab 07/09/17 Metoclopramide HCl [Reglan] 5 mg PO TIDCM PRN #30 tab 07/09/17 Ondansetron HCl [Zofran] 4 mg PO Q6H PRN #30 tab 07/09/17 gabapentin 300 mg capsule 300 mg PO BID cap 07/25/17 Glimepiride [Amaryl] 2 mg PO DAILY 07/31/17 Metoprolol Tartrate [Lopressor (beta hellen)] 25 mg PO DAILY 07/31/17 Potassium Citrate [Potassium Citrate ER] 10 meq PO TID 07/31/17 Hydrocodone Bitart/Apap 5-325 [Hubert 5/325] 1 tab PO Q6H PRN PRN 3 Days #6 tab 08/02/17 Hydrocodone Bitart/Apap 5-325 [Hubert 5MG-325MG] 1 tablet PO Q6H PRN PRN 3 Days # 10 tablet 08/29/17 The following prescriptions were given: Hydrocodone Bitart/Apap 5-325 [Hubert 5MG-325MG] 1 tablet PO Q6H PRN PRN 3 Days # 10 tablet PRN Reason: Pain Primary Care Physician: Melvi Eastman MD [Primary Care Provider] - Please Follow Up With: Mohinder Patricia MD - [phone] When: Call to make an appointment for suture removal and follow up in 1 week.
--- NOTE | 2017-08-29 13:08 | PCM.OPRPT ---
Problem List (1) Chronic renal failure, stage 4 (severe) Status: Acute Report of Operation Date of Procedure: 08/29/17 Pre-Operative Diagnosis: Stage IV chronic renal failure Post-Operative Diagnosis: Same Surgery/Procedure Performed:: stage II transposition left upper extremity basilic vein to brachial artery arteriovenous fistula creation Description of Surgical Findings:: Timeout and informed consent was obtained. 42-year-old female was taken to the operating room. Initially started with monitored anesthesia care but my request we converted to a general for comfort. The left upper extremity was sterilely prepped and draped. Ancef 2 g given intravenous preoperatively. 1% lidocaine mixed 50-50 with 0.5% Marcaine was used as a local anesthetic additional 0.5% lidocaine was used as a local. Ultrasound mapping of the basilic vein in the upper arm was performed preprocedure. A longitudinal incision along the course of the basilic vein was performed in the left upper arm. Tedious sharp and blunt dissection was used to identify the basilic vein and then side branches were carefully secured with 4-0 Vicryl ligatures were indicated. Hemoclips were generously used. The vein was dissected free to the shoulder. Then it was measured and a new area of connection to the brachial artery was identified. Sharp and blunt dissection was used to identify the brachial artery and circumferential dissection was performed. Then the vein was ligated distally with 3-0 Vicryl. It was tunneled utilizing a tunnel from the shoulder to the distal upper arm. The patient then received 10,000 units of heparin. After adequate circling time peripheral vascular clamps are placed on the brachial artery. 11 blade was used to make an arteriotomy which was extended with Gregory scissors. A end-to-side anastomosis was created with a running 7-0 Prolene. Prior to completion there appear to be good inflow and outflow. The anastomosis was completed. There was good pulsatile flow with a palpable thrill. The hand was inspected was noted to be viable. There appear to be still a good 3+ radial pulse. Patient received 20 mg of protamine. The wound was approximated in deep layers of multiple interrupted 3-0 Vicryl suture. The skin edges approximated with a running septic or 4-0 Monocryl. Steri-Strips Telfa soft roll Shawn wrap dressings applied. Sponge instrument and needle counts were reported the surgeon be correct. Blood loss was minimal at 100 cc. Specimens none. Drains none. The patient was taken to the recovery area in satisfactory condition without apparent complication. Mohinder Patricia M.D., F.A.C.S. Type of Anesthesia:: General Anesthesiologist: Suly Cardoso
[2017-08-29] MEDS: HYDROcodone Bitartrate/Apap 5/325 Tablet PO (16:26)
== END 2017-08-29 17:06 | disposition home or self-care (01) ==
LOC: SDC 08:54 → AC 08:56
PROVIDERS: Family Provider Internal Medicine; PCP Internal Medicine; Visit Provider Surgery
PROC: (CPT 36819; principal; 2017-08-29 10:45)
DX: E11.22 Type 2 diabetes mellitus with diabetic chronic kidney disease (principal); N18.4 Chronic kidney disease, stage 4 (severe); I12.9 Hypertensive chronic kidney disease with stage 1 through stage 4 chronic kidney disease, or unspecified chronic kidney disease; Z79.899 Other long term (current) drug therapy; Z79.82 Long term (current) use of aspirin; E11.40 Type 2 diabetes mellitus with diabetic neuropathy, unspecified; K59.00 Constipation, unspecified; Z79.4 Long term (current) use of insulin; I25.2 Old myocardial infarction
CPT/HCPCS: 36819; 82962; J7120; J2405

== ENCOUNTER → 2017-11-06 15:18 | Outpatient (CLI) | payer MEDICAID, SELFPAY ==
[2017-11-06 17:36] LABS: Albumin, Serum 3.8 g/dL (3.2-5.0); BUN 66 mg/dL (7-18); Calcium,Total 9.6 mg/dL (8.5-10.1); Chloride 110 mmol/L (98-107); Creatinine, Serum 5.08 mg/dL (0.55-1.02); EST Glomerular Filtration Rate 10 mL/min (>60); Est Glom Filt Rate - Afr Amer 12 mL/min (>60); Glucose 130 mg/dL (74-106); Phosphorus 5.1 mg/dL (2.5-4.9); Potassium 4.9 mmol/L (3.5-5.1); Sodium Level 139 mmol/L (136-145)
[2017-11-06 17:49] LABS: PTHIN 21.5 pg/mL (18.4-80.1)
[2017-11-06 17:50] LABS: Hematocrit 27.6 % (37-47); Hemoglobin 9.2 g/dl (12.0-15.0); Mean Corp Hgb Conc 33.3 g/gl (32-36); Mean Corpuscular Hgb 24.4 pg (27.0-32.0); Mean Corpuscular Volume 73.2 fL (81-99); Mean Platelet Vol. 9.4 fl (6.2-12.0); Platelet Count 358 K/mm3 (150-450); RBC Distribution Width CV 13.5 % (11.6-14.6); RBC Distribution Width SD 35.1 fl (35.1-43.9); Red Blood Count 3.77 M/mm3 (4.2-5.4); White Blood Count 7.4 K/mm3 (4.4-11.0)
[2017-11-06 17:54] LABS: Scan Indicated on CBC? Y/N YES- FLAGS NOTED
== END ==
PROVIDERS: Family Provider Internal Medicine; PCP Internal Medicine; Visit Provider Internal Medicine Nephrology
DX: N18.4 Chronic kidney disease, stage 4 (severe) (principal); D50.9 Iron deficiency anemia, unspecified
CPT/HCPCS: 36415; 80069; 83970; 85027

== ENCOUNTER → 2017-11-22 08:54 | Outpatient (CLI) | payer MEDICAID, SELFPAY | PROVIDERS: Family Provider Internal Medicine; PCP Internal Medicine; Visit Provider Physician Assistant | DX: T82.898A Other specified complication of vascular prosthetic devices, implants and grafts, initial encounter (principal); N18.4 Chronic kidney disease, stage 4 (severe) | CPT/HCPCS: 93990 ==

== ENCOUNTER → 2017-11-22 09:54 | Outpatient (CLI) | payer MEDICAID, SELFPAY ==
[2017-11-22 13:19] LABS: Albumin, Serum 3.4 g/dL (3.2-5.0); BUN 58 mg/dL (7-18); BUN/Creat Ratio 11.8 RATIO (10-20); Calcium,Total 9.2 mg/dL (8.5-10.1); Chloride 106 mmol/L (98-107); Creatinine, Serum 4.93 mg/dL (0.55-1.02); EST Glomerular Filtration Rate 10 mL/min (>60); Est Glom Filt Rate - Afr Amer 12 mL/min (>60); Ferritin 275 ng/mL (8-252); Glucose 201 mg/dL (74-106); Iron 33 ug/dL (50-170); Iron Binding Capacity,Total 204 ug/dL (250-450); Phosphorus 4.4 mg/dL (2.5-4.9); Potassium 4.6 mmol/L (3.5-5.1); Sodium Level 135 mmol/L (136-145)
== END ==
PROVIDERS: Family Provider Internal Medicine; PCP Internal Medicine; Visit Provider Internal Medicine Nephrology
DX: N17.9 Acute kidney failure, unspecified (principal); D50.9 Iron deficiency anemia, unspecified; T82.898A Other specified complication of vascular prosthetic devices, implants and grafts, initial encounter; N18.4 Chronic kidney disease, stage 4 (severe)
CPT/HCPCS: 36415; 80069; 82728; 83540; 83550; 93990

== ENCOUNTER 2017-11-28 12:21 | Day surgery (SDC) | payer MEDICAID, SELFPAY ==
[2017-11-28] VITALS (7 sets, daily range): BP systolic 132–183; BP diastolic 78–102; PULSE 70–82; RESP 16–18; TEMP 36.1–36.6; O2SAT 99–100; BMI 38.9
[2017-11-28 12:53] LABS: Internal QC Validated? YES +Cl - CLEAR BKGD; Pregnancy, Urine Negative Negative
[2017-11-28 13:07] LABS: Hemoglobin 9.3 g/dl (12.0-15.0); Mean Corp Hgb Conc 34.4 g/gl (32-36); Mean Corpuscular Hgb 24.9 pg (27.0-32.0); Mean Corpuscular Volume 72.2 fL (81-99); Platelet Count 314 K/mm3 (150-450); RBC Distribution Width CV 13.2 % (11.6-14.6); RBC Distribution Width SD 34.2 fl (35.1-43.9); Red Blood Count 3.74 M/mm3 (4.2-5.4); White Blood Count 8.7 K/mm3 (4.4-11.0)
[2017-11-28 13:11] LABS: Anion Gap 13 (5-15); BUN 63 mg/dL (7-18); Calcium,Total 9.3 mg/dL (8.5-10.1); Chloride 110 mmol/L (98-107); Creatinine, Serum 4.86 mg/dL (0.55-1.02); EST Glomerular Filtration Rate 10 mL/min (>60); Est Glom Filt Rate - Afr Amer 13 mL/min (>60); Estimated Creatinine Clearance 11.93 ml/min; Glucose 133 mg/dL (74-106); Potassium 4.4 mmol/L (3.5-5.1); Sodium Level 137 mmol/L (136-145)
[2017-11-28 13:14] LABS: Scan Indicated on CBC? Y/N YES- FLAGS NOTED
[2017-11-28 13:26] LABS: Differential Comment SCANNED
[2017-11-28] MEDS: Cefazolin 2 GM in 0.9% Normal Saline 100 ML IV (13:26)
--- NOTE | 2017-11-28 13:28 | PCM.HP.STD ---
Problem List (1) Problem with dialysis access Status: Acute Qualifiers: Encounter type: subsequent encounter Qualified Code(s): T82.898D - Other specified complication of vascular prosthetic devices, implants and grafts, subsequent encounter History of Present Illness Date of Admission: 11/28/17 The patient is a 42 year old F who has been having problems with left hand pain. She had a stage II transposition left upper extremity basilic vein to brachial artery AV fistula created August 29, 2017. The patient is complained of persistent progressive left hand pain and weakness. The duplex imaging exam with flow rates were obtained suggesting a fistula arterial steal. The patient presents now for correction Past Medical History Past Medical History (Chronic Problems): Chronic Problems (Last Reviewed 11/18/17 @ 14:21 by Tianna Reed) Chronic renal failure, stage 4 (severe) (Chronic) Morbid obesity (Chronic) HTN (hypertension) (Chronic) Bilateral hydronephrosis (Chronic) Iron deficiency anemia (Chronic) Type II diabetes mellitus (Chronic) Coronary artery disease (Chronic) Chronic low back pain (Chronic) Hydroureter (Chronic) Hydronephrosis (Chronic) Bladder outlet obstruction (Chronic) Medical History: Medical History (Last Reviewed 11/18/17 @ 14:21 by Tianna Reed) Problem with dialysis access (Acute) T82.898A Chronic renal failure, stage 4 (severe) (Chronic) N18.4 Anemia D64.9 Anxiety and depression F41.8 Back problem M53.9 Carpal tunnel syndrome G56.00 Diabetes type 2, controlled E11.9 H/O nephrolithotomy with removal of calculi Z98.890, Z87.442 H/O transfusion of whole blood Z92.89 Headache R51 Heart disease I51.9 Hives L50.9 Kidney disease N28.9 Kidney failure N19 Kidney stone N20.0 Neuropathy G62.9 Recurrent infections B99.9 Seasonal allergies J30.2 UTI (urinary tract infection) N39.0 Vitamin deficiency E56.9 HTN (hypertension) I10 Allergies ciprofloxacin [From Cipro] Adverse Reaction (Verified 11/27/17 15:14) Vomiting contrast dye Allergy (Severe, Uncoded 11/27/17 15:14) Anaphylaxis Home Medications: Ambulatory Orders Medication Instructions Recorded Duloxetine Hcl [Cymbalta] 60 mg PO DAILY 03/08/17 Ergocalciferol [Vitamin D] 50,000 unit PO WE 04/18/17 Insulin Glargine,Hum.rec.anlog 25 unit SQ QHS 04/18/17 [Basaglar Conorikpen U-100] Amlodipine [Norvasc] 5 mg PO DAILY #30 tab 07/09/17 Aspirin E.C. [Ecotrin] 81 mg PO DAILY@0800 #30 tab 07/09/17 Ondansetron HCl [Zofran] 4 mg PO Q6H PRN #30 tab 07/09/17 gabapentin 300 mg capsule 300 mg PO BID cap 07/25/17 Glimepiride [Amaryl] 2 mg PO DAILY 07/31/17 Metoprolol Tartrate [Lopressor 25 mg PO DAILY 07/31/17 (beta hellen)] Potassium Citrate [Potassium 10 meq PO TID 07/31/17 Citrate ER] FreeStyle Kan Sensor kit See Dose Instructions .ROUTE 11/06/17 .MEDSUPPLY #3 ea NS flash glucose scanning reader See Dose Instructions .ROUTE 11/06/17 .MEDSUPPLY #1 ea nortriptyline 10 mg capsule 10 mg PO QHS 11/14/17 Famotidine [Pepcid] 20 mg PO BID 11/27/17 Ferrous Sulfate 325 mg PO TID 11/27/17 Surgical History: Surgical History (Last Reviewed 11/18/17 @ 14:21 by Tianna Reed) H/O heart artery stent Z95.5 History of carpal tunnel surgery Z92.89 Presence of surgically created arteriovenous shunt for hemodialysis Z99.2 Surgical History: - Psychiatric History: No pertinent psych hx 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 Smoking Status: Never smoker - *Family History Maternal History Items: Unknown Paternal History Items: Unknown Review of Systems Constitutional: Denies: Anorexia Eyes: Denies: Blurred vision Cardiovascular: Denies: Chest Pain Respiratory: Denies: Cough Gastrointestinal: Denies: Abdominal Pain Musculoskeletal: Reports: - - Patient notes diminished progress developer strength of the left hand and coolness as well as constant aching pain Skin: Denies: Dryness VTE Information - Inpt Only VTE Present on Admission: No - Physical Exam General: Alert, Oriented x3, Cooperative, No apparent distress HEENT: Atraumatic Oral: Moist Mucosa Neck: Supple Lungs: Clear to auscultation Cardiovascular: Regular rate, Regular Rhythm Abdomen: Non Tender Extremities: - - Left upper extremity transposed basilic vein to brachial artery AV fistula with a very strong pulse, thrill, bruit, left hand was viable, pink with slightly diminished capillary refill. Left radial pulse is just palpable Psych/Mental Status: Normal Affect Vital Signs Temp Pulse Resp BP Pulse Ox 97.9 F 70 18 132/81 H 99 11/28/17 12:55 11/28/17 12:55 11/28/17 12:55 11/28/17 12:55 11/28/17 12:55 Oxygen Delivery Method Room Air Weight: 213 lb 2.992 oz Body Mass Index (BMI) 38.9 Laboratory Tests Past 24 Hrs 11/28/17 11/28/17 11/28/17 12:38 12:50 12:50 WBC 8.7 RBC 3.74 L Hgb 9.3 L Hct 27.0 L MCV 72.2 L MCH 24.9 L MCHC 34.4 RDW 13.2 RDW Differential 34.2 L Plt Count 314 MPV 9.0 Differential Comment SCANNED Sodium 137 Potassium 4.4 Chloride 110 H Carbon Dioxide 14.0 L Anion Gap 13 BUN 63 H Creatinine 4.86 H Estim Creat Clear Calc 11.93 Est GFR (MDRD) Af Amer 13 L Est GFR (MDRD) Non-Af 10 L BUN/Creatinine Ratio 13.0 Glucose 133 H Calcium 9.3 Urine Test Negative Assessment/Plan All Active Problems (Last Reviewed 11/18/17 @ 14:21 by Tianna Reed) Problem with dialysis access (Acute) Gastroenteritis (Acute) Ureteral calculi (Acute) Metabolic acidosis (Acute) Acute kidney injury (Acute) Nausea and vomiting (Acute) Sepsis (Acute) UTI (urinary tract infection) (Acute) FRANSICO (acute kidney injury) (Acute) Based upon the left upper extremity duplex imaging and flow analysis there appears to be a very high-grade flow within the fistula causing a degree of arterial steal from the forearm and hand. I discussed treatment options with the patient including placing a restrictive cuff versus a drill procedure. I made it very clear that I do not perform the drill procedure but could get her referred for tertiary consultation and treatment. At this point however I believe that applying a restrictive cuff would be a very conservative reasonable means of approach. No guarantees of success have been offered. She is well aware that under restriction or over restriction is possible. She has had an opportunity to ask and have questions answered. We will proceed as noted. Mohinder Patricia M.D., F.A.C.S.
--- NOTE | 2017-11-28 13:34 | PCM.DC.FIST ---
Discharge Diet: Renal Diet Discharge Activity: May Not Drive - for 2-3 days or while taking narcotic pain medications., May Shower, May Take a Tub Bath - in 5 days. Lifting Restrictions: 5 pounds Keep extremity elevated above heart level: - - Keep arm elevated above the heart level for 3 days. Additional Activity Instructions:: Exercise hand vigorously with a stress ball. Call your doctor if your incision/area has: Continuous Slow Oozing, Sudden Increased Bleeding - apply pressure and call your doctor., Increased Pain/ Swelling, Increased Redness, Foul Smelling Discharge Call your doctor if you observe: Fever of 101 or Higher Suture Line Care: Avoid Pulling/Pushing, Avoid Pinching/Bending Cleanse incision/area with: Keep Dressing Clean & Dry Additional Dressing/Incision Instructions:: You may leave the waterproof dressing intact. They may remove it in 3-4 days. Leave any Steri-Strips on for an additional 1 week please Allergies/Adverse Reactions: Allergies ciprofloxacin [From Cipro] Adverse Reaction (Verified 11/27/17 15:14) Vomiting contrast dye Allergy (Severe, Uncoded 11/27/17 15:14) Anaphylaxis Medications to take at Discharge Duloxetine Hcl [Cymbalta] 60 mg PO DAILY 03/08/17 Ergocalciferol [Vitamin D] 50,000 unit PO WE 04/18/17 Insulin Glargine,Hum.rec.anlog [Basaglar Kwikpen U-100] 25 unit SQ QHS 04/18/17 Amlodipine [Norvasc] 5 mg PO DAILY #30 tab 07/09/17 Aspirin E.C. [Ecotrin] 81 mg PO DAILY@0800 #30 tab 07/09/17 Ondansetron HCl [Zofran] 4 mg PO Q6H PRN #30 tab 07/09/17 gabapentin 300 mg capsule 300 mg PO BID cap 07/25/17 Glimepiride [Amaryl] 2 mg PO DAILY 07/31/17 Metoprolol Tartrate [Lopressor (beta hellne)] 25 mg PO DAILY 07/31/17 Potassium Citrate [Potassium Citrate ER] 10 meq PO TID 07/31/17 FreeStyle Kan Sensor kit See Dose Instructions .ROUTE .MEDSUPPLY #3 ea NS 11/06/17 flash glucose scanning reader See Dose Instructions .ROUTE .MEDSUPPLY #1 ea 11/06/17 nortriptyline 10 mg capsule 10 mg PO QHS 11/14/17 Famotidine [Pepcid] 20 mg PO BID 11/27/17 Ferrous Sulfate 325 mg PO TID 11/27/17 Primary Care Physician: Melvi Eastman MD [Primary Care Provider] - Test Results: Test results from this visit will be discussed in further detail at your follow-up appointment, if applicable. Please Follow Up With: Mohinder Patricia MD - [phone] When: Call to make an appointment for suture removal and follow up in 1 week.
[2017-11-28] MEDS: Bupivacaine Mpf 0.5% 30 ML VIAL (14:26)
--- NOTE | 2017-11-28 14:28 | PCM.OPRPT ---
Problem List (1) Problem with dialysis access Status: Acute Qualifiers: Encounter type: subsequent encounter Qualified Code(s): T82.898D - Other specified complication of vascular prosthetic devices, implants and grafts, subsequent encounter Report of Operation Date of Procedure: 11/28/17 Pre-Operative Diagnosis: Upper extremity transposed basilic vein to brachial artery arterial venous hemodialysis fistula with arterial steal Post-Operative Diagnosis: Same Surgery/Procedure Performed:: Revision left upper extremity AV fistula with Dacron cuff restrictor Description of Surgical Findings:: Timeout informed consent was obtained. 42-year-old female was taken the operating room. She was placed on the table. The left extremity sterilely prepped draped. Ancef 2 g given intravenous preoperatively. Monitored anesthesia care was provided. 1% lidocaine mixed 50-50 with 0.5; was used as local anesthetic total 7 cc was used. I performed ultrasound mapping identifying the very origin of the fistula. Local was instilled a longitudinal incision created sharp dissection carried down to Rocha tissue the transposed basilic vein immediately adjacent to the arterial anastomosis was rapidly identified. Circumferential dissection was performed. A Dacron Hemoccult carotid patch 14 x 75 mm was selected. I utilized half of the width. Wrapped that around the very proximal portion of the fistula and then used interrupted 6-0 Prolene to approximate the Dacron to itself as well as to the anterior wall of the vein. 3 separate sutures were performed. It is of note that volume flow was performed with duplex information services tech available. Without any cough flow rate was thousand cc per minute. The cuff was secured down to the final reading of 630 cc a minute. The patient had a 1+ radial pulse at the beginning of the procedure. Subsequent to the cuff placement she had a 2+ radial pulse. Hand appears to be slightly more pink with adequate capillary refill. The fistula itself still had a strong pulse thrill and bruit. I elected not to tighten the cuff any further. The wound was closed in layers with interrupted 4-0 Monocryl. Steri-Strips Telfa and OpSite dressings applied. Sponge and instrument and needle counts were reported the surgeon for correct. Blood loss was minimal. No apparent complication. Specimens none. Drains none. Blood loss minimal Hemoccult carotid patch admitted ultrathin size of 14 x 75 mm reference number of [id number] lot #[id number], serial #[id number] Mohinder Patricia M.D., F.A.C.S. Type of Anesthesia:: Local MAC
[2017-11-28 14:35] LABS: Bedside Glucose 135 mg/dL (70-110)
[2017-11-28 15:25] LABS: Bedside Glucose 136 mg/dL (70-110)
== END 2017-11-28 16:27 | disposition home or self-care (01) ==
LOC: SDC 12:22 → AC 12:24
PROVIDERS: Family Provider Internal Medicine; PCP Internal Medicine; Visit Provider Surgery
PROC: (CPT 37607; principal; 2017-11-28 14:00)
DX: T82.898A Other specified complication of vascular prosthetic devices, implants and grafts, initial encounter (principal); E66.01 Morbid (severe) obesity due to excess calories; Z68.39 Body mass index [BMI] 39.0-39.9, adult; Z71.3 Dietary counseling and surveillance; E11.22 Type 2 diabetes mellitus with diabetic chronic kidney disease; I12.9 Hypertensive chronic kidney disease with stage 1 through stage 4 chronic kidney disease, or unspecified chronic kidney disease; N18.4 Chronic kidney disease, stage 4 (severe); I25.10 Atherosclerotic heart disease of native coronary artery without angina pectoris; Z79.4 Long term (current) use of insulin; Z79.899 Other long term (current) drug therapy; D50.9 Iron deficiency anemia, unspecified; F41.8 Other specified anxiety disorders; I25.2 Old myocardial infarction
CPT/HCPCS: 01844; 36815; 80048; 81025; 82962; 85027; 93005; C1768

== ENCOUNTER → 2017-12-17 12:01 | Outpatient (CLI) | payer MEDICAID, SELFPAY ==
[2017-12-17 12:41] LABS: Hematocrit 29.3 % (37-47); Mean Corp Hgb Conc 34.1 g/gl (32-36); Mean Corpuscular Hgb 24.9 pg (27.0-32.0); Mean Corpuscular Volume 72.9 fL (81-99); Mean Platelet Vol. 8.8 fl (6.2-12.0); Platelet Count 362 K/mm3 (150-450); RBC Distribution Width CV 13.4 % (11.6-14.6); RBC Distribution Width SD 35.1 fl (35.1-43.9); Red Blood Count 4.02 M/mm3 (4.2-5.4); White Blood Count 9.5 K/mm3 (4.4-11.0)
[2017-12-17 12:43] LABS: Scan Indicated on CBC? Y/N YES- FLAGS NOTED
[2017-12-17 12:54] LABS: Albumin, Serum 3.2 g/dL (3.2-5.0); BUN 57 mg/dL (7-18); BUN/Creat Ratio 13.3 RATIO (10-20); Calcium,Total 9.2 mg/dL (8.5-10.1); Chloride 108 mmol/L (98-107); Creatinine, Serum 4.27 mg/dL (0.55-1.02); EST Glomerular Filtration Rate 12 mL/min (>60); Est Glom Filt Rate - Afr Amer 15 mL/min (>60); Glucose 95 mg/dL (74-106); Phosphorus 4.8 mg/dL (2.5-4.9); Potassium 4.6 mmol/L (3.5-5.1); Sodium Level 136 mmol/L (136-145)
== END ==
PROVIDERS: Family Provider Internal Medicine; PCP Internal Medicine; Visit Provider Internal Medicine Nephrology
DX: N18.4 Chronic kidney disease, stage 4 (severe) (principal); D50.9 Iron deficiency anemia, unspecified
CPT/HCPCS: 36415; 80069; 85027

== ENCOUNTER → 2018-01-09 09:00 | Outpatient (CLI) | payer MEDICAID, SELFPAY ==
--- NOTE | 2018-01-09 09:02 | AVDS_ITS ---
Reason For Study: Lt arm/hand pain LEFT [place] artery - 114.0 cm/s Anastomosis - 554.0 cm/s Prox graft - 280.0 cm/s Volume flow - 1227 cc/min Mid graft - 265.0 cm/s Volume flow - 1643 cc/min Dist graft - 222 cm/s Volume flow - 986.0 cc/min Outflow - 187.0 cm/s Volume flow - 1933 cc/min Radial artery Prox - 7.1 cm/s Mid - 35.8 cm/s Dist - 33.6 cm/s Ulnar artery Prox - 56.4 cm/s Mid - 32.5 cm/s Dist - 36.2 cm/s Palmar arch - 22.5 cm/s. Interpretation Summary Maximal volume [id number] cc/min Improved over previous maximal flow on 11/22/17 of 3403 cc/min This remains a high flow fistula. Ordering Physician: Nasreen Fam PA-C Referring Physician: Mohinder Patricia Performed By: Blanca Valdivia RVT
== END ==
PROVIDERS: Family Provider Internal Medicine; PCP Internal Medicine; Referring Provider Surgery; Visit Provider Surgery
DX: T82.898A Other specified complication of vascular prosthetic devices, implants and grafts, initial encounter (principal)
CPT/HCPCS: 93990

== ENCOUNTER → 2018-01-29 12:13 | Outpatient (CLI) | payer MEDICAID, SELFPAY ==
[2018-01-29 12:38] LABS: Hematocrit 27.9 % (37-47); Hemoglobin 9.3 g/dl (12.0-15.0); Mean Corp Hgb Conc 33.3 g/gl (32-36); Mean Corpuscular Hgb 24.4 pg (27.0-32.0); Mean Corpuscular Volume 73.2 fL (81-99); Mean Platelet Vol. 8.8 fl (6.2-12.0); Platelet Count 318 K/mm3 (150-450); RBC Distribution Width CV 14.1 % (11.6-14.6); RBC Distribution Width SD 36.8 fl (35.1-43.9); Red Blood Count 3.81 M/mm3 (4.2-5.4); White Blood Count 9.2 K/mm3 (4.4-11.0)
[2018-01-29 12:39] LABS: Scan Indicated on CBC? Y/N YES- FLAGS NOTED
[2018-01-29 13:01] LABS: Albumin, Serum 3.2 g/dL (3.2-5.0); BUN 62 mg/dL (7-18); Calcium,Total 9.1 mg/dL (8.5-10.1); Chloride 111 mmol/L (98-107); Creatinine, Serum 4.43 mg/dL (0.55-1.02); EST Glomerular Filtration Rate 12 mL/min (>60); Est Glom Filt Rate - Afr Amer 14 mL/min (>60); Ferritin 268 ng/mL (8-252); Glucose 108 mg/dL (74-106); Iron 67 ug/dL (50-170); Iron Binding Capacity,Total 206 ug/dL (250-450); Phosphorus 5.1 mg/dL (2.5-4.9); Potassium 4.5 mmol/L (3.5-5.1); Sodium Level 137 mmol/L (136-145)
[2018-01-29 13:12] LABS: Differential Comment SCANNED
== END ==
PROVIDERS: Family Provider Internal Medicine; PCP Internal Medicine; Visit Provider Internal Medicine Nephrology
DX: N18.4 Chronic kidney disease, stage 4 (severe) (principal); D50.9 Iron deficiency anemia, unspecified
CPT/HCPCS: 36415; 80069; 82728; 83540; 83550; 85027

== ENCOUNTER 2018-02-27 22:33 | Inpatient (IN) | payer MEDICAID, SELFPAY ==
[2018-02-27 22:34] VITALS: BP 189/107; PULSE 98; RESP 17; TEMP 35.9; O2SAT 100; BMI 34.0
[2018-02-27] MEDS: Ondansetron 4 MG/2 ML Vial IV (23:18)
[2018-02-27] MEDS: Morphine 4 MG/ML Syringe IV (23:18)
[2018-02-27] MEDS: 0.9% Normal Saline 1,000 ML 1000 ML IV (23:19)
--- NOTE | 2018-02-27 23:40 | CT_ITS ---
HISTORY: RIGHT FLANK PAIN STARTING TODAY, DIABETIC, HTN, ME, NON-FUNCTIONING KIDNEYS, NOT ON DIALYSIS TECHNIQUE: Helically acquired images were obtained of the abdomen and pelvis without oral or IV contrast as per renal stone protocol. A radiation dose optimization technique was used for this scan. IV Contrast dosage and agent: None. Oral contrast: None. COMPARISON: 07/06/2017 FINDINGS: With comparison to previous, no significant change. Bilateral moderate hydronephrosis and moderate hydroureter with ureteral dilatation extending to the bladder. Mild over distention of the urinary bladder which shows diffuse wall thickening in keeping with chronic outlet obstruction. No obstructing mass or stone seen. The kidneys show no significant postobstructive atrophy. 6 mm nonobstructing calyceal stone, lower pole of the left kidney. Central vascular calcifications of both kidneys. The adrenal glands are not enlarged. Lower thorax: No pleural effusion. The liver, spleen, pancreas, gallbladder, and biliary system show no CT abnormality. Abdominal aorta is normal caliber. No ascites. Numerous borderline enlarged retroperitoneal lymph nodes, nonspecific. GI tract: No obstruction. Pelvis: The uterus is not enlarged. No free pelvic fluid. Bilateral pelvic sidewall lymph nodes which are no suspicious enlargement CT/Abdomen/Pelvis without Cont IMPRESSION: 1. Moderate hydronephrosis and moderate hydroureter bilaterally, chronic in appearance. 2. Urinary bladder generalized mural thickening with mild over distention of the bladder in keeping with chronic urinary tract outlet obstruction. 3. Left renal nonobstructing stone, unchanged. 4. Borderline retroperitoneal lymphadenopathy, unchanged. Consider PET CT evaluation. Individualized dose optimization techniques were used for this CT. at 0116 Reported and signed by: Con Angeles MD Electronically Signed: Con Angeles, at 1:14 EST Tel , Service support ,
[2018-02-28] VITALS (9 sets, daily range): BP systolic 131–147; BP diastolic 70–80; PULSE 75–90; RESP 16–18; TEMP 36.4–36.9; O2SAT 98–100; BMI 38.8; BMI 38.9
[2018-02-28 00:53] LABS: Bacteria 0 SEEN /hpf (None Seen); Mucous, Urine 0 SEEN /hpf (<or=2+); Red Blood Cells-Urine 0 SEEN /hpf (0-5)
[2018-02-28 01:08] LABS: Absolute Lymphocyte Count 1.72 X10^3/ul (0.83-4.51); Absolute Neutrophil Count 7.1 X10^3/uL (2.0-7.7); Basophil# 0.02 X10^3/uL; Basophil% 0.2 % (0-1); Eosinophils% 3.9 % (0-5); Hematocrit 24.1 % (37-47); Hemoglobin 8.3 g/dl (12.0-15.0); Lymphocyte # 1.72 X10^3/ul (4.0); Lymphocyte % 16.7 % (19-41); Mean Corp Hgb Conc 34.4 g/gl (32-36); Mean Corpuscular Hgb 25.2 pg (27.0-32.0); Mean Corpuscular Volume 73.3 fL (81-99); Mean Platelet Vol. 8.6 fl (6.2-12.0); Monocyte# 1.02 X10^3/uL; Monocyte% 9.9 % (0-10); Neutrophil # 7.12 X10^3/uL (2.7-7.7); Platelet Count 400 K/mm3 (150-450); RBC Distribution Width CV 13.7 % (11.6-14.6); RBC Distribution Width SD 35.5 fl (35.1-43.9); Red Blood Count 3.29 M/mm3 (4.2-5.4); White Blood Count 10.3 K/mm3 (4.4-11.0)
[2018-02-28 01:10] LABS: Differential Indicated SCAN CRITERIA MET; POSITIVE COUNT NO; POSITIVE DIFFERENTIAL NO; POSITIVE MORPHOLOGY YES
[2018-02-28 01:10] LABS: Color, Urine Yellow (Yellow); Glucose, Dipstick Normal (Normal); Ketone-Dipstick Negative (Negative); Leukocyte Esterase-Dipstick 500 /ul (Negative); Nitrite-Dipstick Negative (Negative); Occult Blood-Urine 50 /ul (Negative); Protein-Dipstick 30 mg/dl (Negative); Specific Gravity, Urine 1.005 (1.002-1.030); Urine Bilirubin Dipstick Negative (Negative); Urine Clarity Cloudy (Clear); Urine Urobilinogen Normal (Normal)
[2018-02-28 01:21] LABS: Squamous Epithelial Cells - UA 0-5 SEEN /hpf (5-10); White Blood Cells >100 SEEN /hpf (0-5); Yeast-Urine RARE /hpf (None Seen)
[2018-02-28 01:23] LABS: ALB/GLOB Ratio 0.8 RATIO (0.9-2.4); AST(SGOT) 8 U/L (15-37); Alanine Aminotransfer ALT/SGPT 11 U/L (13-56); Albumin, Serum 3.1 g/dL (3.2-5.0); Alkaline Phosphatase 80 U/L (45-117); Anion Gap 10 (5-15); BUN 59 mg/dL (7-18); BUN/Creat Ratio 13.9 RATIO (10-20); Calcium,Total 8.5 mg/dL (8.5-10.1); Chloride 113 mmol/L (98-107); Creatinine, Serum 4.25 mg/dL (0.55-1.02); EST Glomerular Filtration Rate 12 mL/min (>60); Est Glom Filt Rate - Afr Amer 15 mL/min (>60); Estimated Creatinine Clearance 16.77 ml/min; Glucose 108 mg/dL (74-106); Lipase 67 U/L (73-393); Potassium 4.5 mmol/L (3.5-5.1); Protein, Total 7.1 g/dL (6.4-8.2); Sodium Level 140 mmol/L (136-145)
[2018-02-28 01:41] LABS: Anisocytosis RARE
--- NOTE | 2018-02-28 02:11 | ED.DCSUM_ITS ---
- ER Visit Summary Date of Service: 02/28/18 Chief Complaint: Flank pain nausea vomiting and diarrhea History of Present Illness: The patient is a 42 F with significant medical history including diabetes hypertension coronary disease cardiac cath stent chronic kidney disease. She states that about 1 year ago she had been admitted in acute renal failure. She states that some of her symptoms feel similar now. She complains of chronic intermittent vomiting and diarrhea for the past year but this is been worse recently. Also 2 days ago she developed severe throbbing right flank pain. She also reports a prior history of kidney stones. No fevers chest pain shortness of breath. No urinary symptoms. Physical Examination: Afebrile blood pressure 189/107 heart rate 98 Moist mucous membranes Heart regular rate and rhythm Lungs are clear Abdomen soft nontender to palpation Patient does have right CVA tenderness Alert Test Results: Labs notable for hemoglobin 8.3, bicarbonate 17, BUN 59, creatinine 4.25. These all appear to be near her baseline. Urinalysis consistent with infection with greater than 500 leukocyte esterase and greater than [address] of the flank shows chronic findings including findings of chronic urinary outlet obstruction with chronic hydronephrosis and hydroureter. No acute findings. Emergency Department Course and Treatment: There was difficulty with obtaining blood. An IV was established and she was given IV morphine and Zofran. Lab also attempted blood draw but was unsuccessful. I attempted a right radial artery stick but this was unsuccessful. Blood was obtained from left femoral venipuncture. Workup as above. Symptomatically improved on reevaluation. She does have evidence of UTI. However given her comorbidities with hydroureter hydronephrosis and complains of nausea vomiting and flank pain we will admit. Patient was given IV Rocephin. Treatment Plan: [] Disposition: Admit Impression: UTI Chronic kidney disease Chronic bilateral hydronephrosis This note was generated with [employer] dictation software. It may contain incorrect words, spelling, and punctuation that were not noted in review of the chart prior to signing ED Disposition - Plan for ED Patient: Chief Complaint: Flank Pain Referrals: Melvi Eastman MD [Primary Care Provider] -
[2018-02-28] MEDS: Ceftriaxone 1 GM/50 ML BAG IV ×2 (02:23→21:21)
--- NOTE | 2018-02-28 02:25 | HP.PCM_ITS ---
Problem List (1) Cystitis Status: Acute History of Present Illness Date of Admission: 02/28/18 Chief Complaint: right flank pain The patient is a 42 year old F with a significant history of end-stage renal disease; CAD s/p stent; hypertension; diabetes mellitus; previous kidney stones status post stents with subsequent removal of stents ; who presented with progressively worsening severe nonradiating right flank pain that started 2 days before presentation. She denies any aggravating factors. She received IV morphine at emergency department to help with her pain. Patient denies any urinary urgency; dysuria; or burning with urination. She reports several months of episodic nausea; vomiting and diarrhea that re- occurred on the day of presentation. Patient reported at the ED the night of 02/27/2018. In the morning of the same day she had one episode of vomiting; and in the afternoon she had her last bowel movement. At emergency department CT of her abdomen showed moderate hydronephrosis and moderate hydroureter bilaterally which is chronic in appearance. Also CT of the abdomen showed thickening of the urinary bladder consistent with chronic urinary tract outlet obstruction; left renal nonobstructing stone; unchanged borderline retroperitoneal lymphadenopathy. Her urinalysis was remarkable for WBC and leukocyte esterase as well as occult blood and urinary protein. No leukocyte esterase; or bacteria was found in her urine. She has some squamous epithelial cells in the urine. Past Medical History Past Medical History (Chronic Problems): Chronic Problems (Last Reviewed 02/28/18 @ 03:44 by Farhat Jin MD) Chronic renal failure, stage 4 (severe) (Chronic) Morbid obesity (Chronic) HTN (hypertension) (Chronic) Bilateral hydronephrosis (Chronic) Iron deficiency anemia (Chronic) Type II diabetes mellitus (Chronic) Coronary artery disease (Chronic) Chronic low back pain (Chronic) Hydroureter (Chronic) Hydronephrosis (Chronic) Bladder outlet obstruction (Chronic) Medical History: Medical History (Last Reviewed 02/28/18 @ 06:05 by Farhat Jin MD) Problem with dialysis access (Acute) T82.898A Chronic renal failure, stage 4 (severe) (Chronic) N18.4 Anemia D64.9 Anxiety and depression F41.8 Back problem M53.9 Carpal tunnel syndrome G56.00 Diabetes type 2, controlled E11.9 H/O nephrolithotomy with removal of calculi Z98.890, Z87.442 H/O transfusion of whole blood Z92.89 Headache R51 Heart disease I51.9 Hives L50.9 Kidney disease N28.9 Kidney failure N19 Kidney stone N20.0 Neuropathy G62.9 Recurrent infections B99.9 Seasonal allergies J30.2 UTI (urinary tract infection) N39.0 Vitamin deficiency E56.9 HTN (hypertension) I10 Allergies ciprofloxacin [From Cipro] Adverse Reaction (Verified 02/27/18 22:39) Vomiting contrast dye Allergy (Severe, Uncoded 02/27/18 22:39) Anaphylaxis Home Medications: Ambulatory Orders Medication Instructions Recorded Ergocalciferol [Vitamin D] 50,000 unit PO WE 04/18/17 Insulin Glargine,Hum.rec.anlog 25 unit SQ QHS 04/18/17 [Basaglar Kwikpen U-100] Amlodipine [Norvasc] 5 mg PO DAILY #30 tab 07/09/17 Aspirin E.C. [Ecotrin] 81 mg PO DAILY@0800 #30 tab 07/09/17 Ondansetron HCl [Zofran] 4 mg PO Q6H PRN #30 tab 07/09/17 Glimepiride [Amaryl] 2 mg PO DAILY 07/31/17 Metoprolol Tartrate [Lopressor 25 mg PO DAILY 07/31/17 (beta hellen)] Potassium Citrate [Potassium 10 meq PO TID 07/31/17 Citrate ER] FreeStyle Kan 10 Day Sensor kit See Dose Instructions .ROUTE 11/06/17 .MEDSUPPLY #3 ea NS flash glucose scanning reader See Dose Instructions .ROUTE 11/06/17 .MEDSUPPLY #1 ea nortriptyline 10 mg capsule 20 mg PO QHS 11/14/17 Famotidine [Pepcid] 20 mg PO BID 11/27/17 Ferrous Sulfate 325 mg PO TID 11/27/17 Docusate Sodium [Colace] 100 mg PO DAILY PRN PRN 02/28/18 Hydrocodone/Acetaminophen [Brice 1 each PO Q6H PRN PRN 02/28/18 5-325 Tablet] Sodium Bicarbonate 325 mg PO BID 02/28/18 Venlafaxine XR [Effexor Xr] 150 mg PO DAILY 02/28/18 Surgical History: Surgical History (Last Reviewed 02/28/18 @ 06:05 by Farhat Jin MD) H/O heart artery stent Z95.5 History of carpal tunnel surgery Z92.89 Presence of surgically created arteriovenous shunt for hemodialysis Z99.2 Surgical History: - Psychiatric History: No pertinent psych hx [employer] History: No pertinent [employer] history Smoking Status: Never smoker Alcohol: None - *Family History Maternal History Items: Unknown - Patient was adopted and she does not know her family of origin to be able to provide any family medical history. Paternal History Items: Unknown - Patient was adopted and she does not know her family of origin to be able to provide any family medical history. Review of Systems Constitutional: Denies: Chills, Fever HEENT: Denies: Head Aches, Sinus Congestion, Sinus Drainage Cardiovascular: Denies: Chest Pain, Palpitations Respiratory: Denies: Cough, Shortness of breath at rest, Sputum production Gastrointestinal: Reports: Diarrhea, Nausea, Vomiting, -. Denies: Abdominal Pain Genitourinary: Denies: Dysuria Musculoskeletal: Reports: - - R flank pain. Denies: Joint Pain, Joint Tenderness Skin: Denies: Rash, Wounds Neurological: Denies: Numbness, Tingling, Focal weakness Psychiatric: Denies: Anxiety, Depression, Homicidal Ideations, Suicidal Ideations Hematologic/ Lymphatic: Denies: Easy Bruising, Easy Bleeding VTE Information - Inpt Only VTE Present on Admission: No VTE Mechan Device Prophylaxis: None VTE Pharm Prophylaxis ordered?: Yes Patient Problems: Active and Suspected Problems (Last Reviewed 02/28/18 @ 03:44 by Farhat Jin MD) Cystitis (Acute) - Physical Exam General: Alert, Oriented x3, Cooperative HEENT: Atraumatic, PERRLA, EOMI, Normocephalic Neck: Supple, No JVD, Negative Carotid Bruits Lungs: Clear to auscultation, Normal air movement Cardiovascular: Regular rate, No murmurs Abdomen: Bowel Sounds Present, Soft, Tender - Mild R CVA tenderness Extremities: No edema, Capillary Refill Less than 3 Seconds Skin: No breakdown, - - Dry skin Musculoskeletal: No Tenderness to Palpation of Joints or Extremities Neurological: Cranial nerves II-XII grossly intact Psych/Mental Status: Normal Affect, Appropriate Vital Signs Temp Pulse Resp BP Pulse Ox 96.7 F L 98 17 189/107 H 100 02/27/18 22:34 02/27/18 22:34 02/27/18 22:34 02/27/18 22:34 02/27/18 22:34 Oxygen Delivery Method Room Air Weight: 98.6 kg Body Mass Index (BMI) 34.0 Laboratory Tests Past 24 Hrs 02/28/18 02/28/18 02/28/18 00:40 00:44 00:44 WBC 10.3 RBC 3.29 L Hgb 8.3 L Hct 24.1 L MCV 73.3 L MCH 25.2 L MCHC 34.4 RDW 13.7 RDW Differential 35.5 Plt Count 400 MPV 8.6 Immature Gran % (Auto) 0.300 Neut % (Auto) 69.0 Lymph % (Auto) 16.7 L [place] % (Auto) 9.9 Eos % (Auto) 3.9 Baso % (Auto) 0.2 Absolute Neuts (auto) 7.1 Absolute Lymphs (auto) 1.72 Total Counted Not Reportable Anisocytosis RARE Sodium 140 Potassium 4.5 Chloride 113 H Carbon Dioxide 17.0 L Anion Gap 10 BUN 59 H Creatinine 4.25 H Estim Creat Clear Calc 16.77 Est GFR (MDRD) Af Amer 15 L Est GFR (MDRD) Non-Af 12 L BUN/Creatinine Ratio 13.9 Glucose 108 H Calcium 8.5 Total Bilirubin 0.40 AST 8 L ALT 11 L Alkaline Phosphatase 80 Total Protein 7.1 Albumin 3.1 L Globulin 4.0 Albumin/Globulin Ratio 0.8 L Lipase 67 L Urine Color Yellow Urine Clarity Cloudy Urine pH 6.0 Ur Specific [place] 1.005 Urine Protein 30 H Urine Glucose (UA) Normal Urine Ketones Negative Urine Occult Blood 50 H Urine Nitrite Negative Urine Bilirubin Negative Urine Urobilinogen Normal Ur Leukocyte Esterase 500 H Urine RBC 0 SEEN Urine WBC >100 SEEN Ur Squamous Epith Cells 0-5 SEEN Urine Bacteria 0 SEEN Urine Mucus 0 SEEN Urine Yeast RARE Assessment/Plan All Active Problems (Last Reviewed 02/28/18 @ 03:44 by Farhat Jin MD) Cystitis (Acute) Problem with dialysis access (Acute) Gastroenteritis (Acute) Ureteral calculi (Acute) Metabolic acidosis (Acute) Acute kidney injury (Acute) Nausea and vomiting (Acute) Sepsis (Acute) UTI (urinary tract infection) (Acute) FRANSICO (acute kidney injury) (Acute) The patient is a 42 year old F with a significant history of end-stage renal disease; CAD s/p stent; Hypertension; Diabetes mellitus; previous kidney stones status post stents with removal of stents later; who presented with progressively worsening severe nonradiating right flank pain that started 2 days before presentation. Probable urinary tract of infection Patient denies any fever or chills. Her white count is normal. The patient with remarkable WBC and leukocyte esterase in the urine; as well as urine protein and urine occult blood. Importantly she has 0 bacteria and no nitrites in her urine. Her urinary findings could be due to inflammation in the urinary tract without any real infection. However because of her right flank pain with no plausible explanation we will treat as a urinary tract infection while we wait for urinary culture. Importantly she has left renal non-obstructing stone which in the first place is in a calyx and in the second place it is at the opposite side of where her pain is at. Patient received ceftriaxone at emergency department. Ceftriaxone continued. Gentle fluid hydration in the setting of nausea vomiting and poor appetite. Home as needed Brice continued. As needed IV morphine ordered. End-stage renal disease. Her estimated GFR on admission was 15. This is about her baseline. 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 At this time as she makes urine and dialysis has not been started. Vitamin D continued Renal diet ordered. Patient to follow-up with Dr. Odonnell outpatient. Nausea; vomiting; and diarrhea. This could be secondary to urinary tract infection or uremia. Her last bowel movement several hours before her admission. Antiemetics and gentle fluid hydration as above. Diabetes mellitus On admission blood glucose was within goal. Home Amaryl continued. Patient reports that she takes Basaglar about once every week depending upon her blood glucose level. We will hold Basaglar at this time. Correction scale insulin added to her regimen. Hypertension On admission blood pressure was severely elevated with systolic blood pressure of 189; and diastolic blood pressure of 107. Amlodipine and metoprolol continued Home blood pressure medication continued Labetalol. Added to her home regimen. Trend blood pressure and adjust blood pressure medication as necessary. Chronic anemia Different diagnosis includes iron deficiency anemia or anemia of chronic kidney disease. We will continue home iron supplements. Normal anion gap metabolic acidosis. Likely due to kidney disease Bicarbonate continued. DVT prophylaxis Subcutaneous heparin. Code Visit OBSV E&M: [id number] Initial observation care L3
[2018-02-28] MEDS: oxyCODONE 5 MG Tablet PO (05:08)
[2018-02-28] MEDS: Heparin Injection (Vial) 5,000 UNIT/ML VIAL 5000 UNIT SC ×3 (05:09→21:20)
[2018-02-28] MEDS: 0.9% Normal Saline 1,000 ML 75 ML IV (07:00)
[2018-02-28 07:36] LABS: Bedside Glucose 96 mg/dL (70-110)
[2018-02-28] MEDS: Glimepiride 2 MG Tablet PO (08:22)
[2018-02-28] MEDS: Morphine 2 MG/ML Syringe 1 MG IV (08:22)
[2018-02-28] MEDS: Famotidine 20 MG Tablet PO ×2 (08:26→21:20)
[2018-02-28] MEDS: Aspirin E.C. 81 MG Tablet PO (08:29)
[2018-02-28] MEDS: amLODIPine 5 MG Tablet PO (08:29)
[2018-02-28] MEDS: Ferrous Sulfate 325 MG Tablet PO ×2 (08:29→16:08)
[2018-02-28] MEDS: Metoprolol Tartrate 25 MG Tablet PO (08:29)
[2018-02-28] MEDS: Sodium Bicarbonate 650 MG Tablet PO ×2 (08:29→21:20)
[2018-02-28] MEDS: Ondansetron 4 MG/2 ML Vial IV ×2 (10:48→22:16)
[2018-02-28 13:20] LABS: Bedside Glucose 61 mg/dL (70-110)
[2018-02-28] MEDS: Dextrose 5%/0.9% NaCl 1,000 ML 75 ML IV (13:26)
--- NOTE | 2018-02-28 13:47 | PCM.PN.HOSP ---
Patient Problems: Active and Suspected Problems (Last Reviewed 02/28/18 @ 06:05 by Farhat Jin MD) Cystitis (Acute) Subjective: Patient was seen and examined. Complains of throbbing right flank pain. Denies any fever or chills. Has nausea, poor p.o. intake intake. Blood sugar was found to be 61. On Amaryl Vitals/I&O's: Vital Signs Temp Pulse Resp BP Pulse Ox 98.3 F 86 16 141/78 H 98 02/28/18 08:39 02/28/18 08:39 02/28/18 08:39 02/28/18 08:39 02/28/18 08:39 Oxygen Delivery Method Room Air Weight: 96.4 kg Body Mass Index (BMI) 38.8 Intake and Output for Last 24 Hours 02/26/18 02/27/18 02/28/18 23:59 23:59 23:59 Intake Total 150 / 150 Output Total 400 / 400 Balance -250 / -250 General: Alert, Oriented x3, Cooperative, No apparent distress HEENT: Atraumatic, PERRLA, EOMI, Normocephalic Oral: Dry Mucosa Neck: Supple, No JVD, Negative Carotid Bruits Lungs: Clear to auscultation, Normal air movement Cardiovascular: Regular rate, Regular Rhythm, Normal S1, Normal S2, No murmurs Abdomen: Bowel Sounds Present, Soft, Non Tender, Non-Distended, No Hepato-splenomegaly Extremities: No edema Skin: - - dry, scaly skin Musculoskeletal: Tenderness - over the right flank Lymphatic: No Cervical, Supraclavicular, or Inguinal Adenopathy Neurological: Cranial nerves II-XII grossly intact, Neuro grossly intact Psych/Mental Status: Normal Affect, Appropriate Laboratory Results 02/28/18 00:40: Urine Color Yellow, Urine Clarity Cloudy, Urine pH 6.0, Ur Specific [place] 1.005, Urine Protein 30 H, Urine Glucose (UA) Normal, Urine Ketones Negative, Urine Occult Blood 50 H, Urine Nitrite Negative, Urine Bilirubin Negative, Urine Urobilinogen Normal, Ur Leukocyte Esterase 500 H, Urine RBC 0 SEEN, Urine WBC >100 SEEN, Ur Squamous Epith Cells 0-5 SEEN, Urine Bacteria 0 SEEN, Urine Mucus 0 SEEN, Urine Yeast RARE 02/28/18 00:44: WBC 10.3, RBC 3.29 L, Hgb 8.3 L, Hct 24.1 L, MCV 73.3 L, MCH 25.2 L, MCHC 34.4, RDW 13.7, RDW Differential 35.5, Plt Count 400, MPV 8.6, Immature Gran % (Auto) 0.300, Neut % (Auto) 69.0, Lymph % (Auto) 16.7 L, [place] % (Auto) 9.9, Eos % (Auto) 3.9, Baso % (Auto) 0.2, Absolute Neuts (auto) 7.1, Absolute Lymphs (auto) 1.72, Total Counted Not Reportable, Anisocytosis RARE 02/28/18 00:44: Sodium 140, Potassium 4.5, Chloride 113 H, Carbon Dioxide 17.0 L, Anion Gap 10, BUN 59 H, Creatinine 4.25 H, Estim Creat Clear Calc 16.77, Est GFR (MDRD) Af Amer 15 L, Est GFR (MDRD) Non-Af 12 L, BUN/Creatinine Ratio 13.9, Glucose 108 H, Calcium 8.5, Total Bilirubin 0.40, AST 8 L, ALT 11 L, Alkaline Phosphatase 80, Total Protein 7.1, Albumin 3.1 L, Globulin 4.0, Albumin/Globulin Ratio 0.8 L, Lipase 67 L 02/28/18 06:57: POC Glucose 96 02/28/18 13:11: POC Glucose 61 L Current Medications Hydrocodone Bitart/Acetaminophen ([place] 5mg-325mg) 1 tablet PO Q6H PRN PRN PRN Reason: PAIN Amlodipine Besylate (Norvasc) 5 mg PO DAILY [facility] Last Admin: 02/28/18 08:29 Dose: 5 mg Aspirin (Ecotrin) 81 mg PO DAILY@0800 [facility] Last Admin: 02/28/18 08:29 Dose: 81 mg Ergocalciferol (Vitamin D) 50,000 unit PO WE [facility] Famotidine (Pepcid) 20 mg PO BID [facility] Last Admin: 02/28/18 08:26 Dose: 20 mg Ferrous Sulfate (Ferrous Sulfate) 325 mg PO TIDCM [facility] Last Admin: 02/28/18 08:29 Dose: 325 mg Heparin Sodium (Porcine) (Heparin Na) 5,000 unit SC Q8 [facility] Last Admin: 02/28/18 05:09 Dose: 5,000 unit Ceftriaxone Sodium (Rocephin) 1 gm in 50 mls @ 100 mls/hr IV Q24@2200 [facility] Dextrose/Sodium Chloride (Dextrose 5%/0.9% Nacl) 1,000 mls @ 75 mls/hr IV .[id number] [facility] Last Admin: 02/28/18 13:26 Dose: 75 mls/hr Insulin Human Lispro (Humalog Kwikpen (Bkc)) 0 unit SC ACHS [facility]; Protocol Last Admin: 02/28/18 13:15 Dose: Not Given Lactic Acid (Lac-Hydrin, Amlactin) 1 applic TOPICAL BID [facility]; Protocol Magnesium Hydroxide (Milk Of Magnesia) 30 ml PO DAILY PRN PRN PRN Reason: Constipation Metoprolol Tartrate (Lopressor (Beta Crystal)) 25 mg PO DAILY [facility] Last Admin: 02/28/18 08:29 Dose: 25 mg Morphine Sulfate () 1 mg IV Q4H PRN PRN PRN Reason: SEVERE PAIN (6-10/10) Last Admin: 02/28/18 08:22 Dose: 1 mg Nortriptyline HCl (Pamelor) 20 mg PO QHS [facility] Ondansetron HCl (Zofran) 4 mg IV Q8H PRN PRN PRN Reason: Nausea Last Admin: 02/28/18 10:48 Dose: 4 mg Sodium Bicarbonate (Sodium Bicarbonate) 650 mg PO BID [facility] Last Admin: 02/28/18 08:29 Dose: 650 mg Venlafaxine HCl (Effexor Xr) 150 mg PO DAILY [facility] Medical Necessity - Tobacco Use Smoking Status: Never smoker Assessment/Plan All Active Problems (Last Reviewed 02/28/18 @ 06:05 by Farhat Jin MD) Cystitis (Acute) Problem with dialysis access (Acute) Gastroenteritis (Acute) Ureteral calculi (Acute) Metabolic acidosis (Acute) Acute kidney injury (Acute) Nausea and vomiting (Acute) Sepsis (Acute) UTI (urinary tract infection) (Acute) FRANSICO (acute kidney injury) (Acute) 42-year-old with past medical history of CKD stagev/ESRD, on dialysis, CAD status post stent, hypertension, type II DM, history of kidney stones seen with complaints of severe right flank pain that started 2 days before admission. 1. Acute right flank pain, likely musculoskeletal, will manage symptomatically with topical analgesics, heating pad 2. Possible UTI, urine cultures are pending, will continue on IV ceftriaxone 3. Hypoglycemia, secondary to poor p.o. intake, patient is on Amaryl, will hold Amaryl, will manage hypoglycemia per protocol, Accu-Cheks, encouraged to eat 4. CKD stage V/ESRD, and appears to be at her baseline, will continue to monitor, follow nephrology 5. Hypertension, controlled, continue home meds 6. Anemia of CKD/iron deficiency, on p.o. iron 7. NAGMA continue to CKD, on oral bicarbonate 8. DVT Ppx- Heparin SC Code Visit Inpatient E&M: 02621 Subs Hosp L2
--- NOTE | 2018-02-28 13:57 | PN_ITS ---
Patient Problems: Active and Suspected Problems (Last Reviewed 02/28/18 @ 06:05 by Farhat Jin MD) Cystitis (Acute) Subjective: Patient was seen and examined. Complains of throbbing right flank pain. Denies any fever or chills. Has nausea, poor p.o. intake intake. Blood sugar was found to be 61. On Amaryl Vitals/I&O's: Vital Signs Temp Pulse Resp BP Pulse Ox 98.3 F 86 16 141/78 H 98 02/28/18 08:39 02/28/18 08:39 02/28/18 08:39 02/28/18 08:39 02/28/18 08:39 Oxygen Delivery Method Room Air Weight: 96.4 kg Body Mass Index (BMI) 38.8 Intake and Output for Last 24 Hours 02/26/18 02/27/18 02/28/18 23:59 23:59 23:59 Intake Total 150 / 150 Output Total 400 / 400 Balance -250 / -250 General: Alert, Oriented x3, Cooperative, No apparent distress HEENT: Atraumatic, PERRLA, EOMI, Normocephalic Oral: Dry Mucosa Neck: Supple, No JVD, Negative Carotid Bruits Lungs: Clear to auscultation, Normal air movement Cardiovascular: Regular rate, Regular Rhythm, Normal S1, Normal S2, No murmurs Abdomen: Bowel Sounds Present, Soft, Non Tender, Non-Distended, No Hepato- splenomegaly Extremities: No edema Skin: - - dry, scaly skin Musculoskeletal: Tenderness - over the right flank Lymphatic: No Cervical, Supraclavicular, or Inguinal Adenopathy Neurological: Cranial nerves II-XII grossly intact, Neuro grossly intact Psych/Mental Status: Normal Affect, Appropriate Laboratory Results 02/28/18 00:40: Urine Color Yellow, Urine Clarity Cloudy, Urine pH 6.0, Ur Specific [place] 1.005, Urine Protein 30 H, Urine Glucose (UA) Normal, Urine Ketones Negative, Urine Occult Blood 50 H, Urine Nitrite Negative, Urine Bilirubin Negative, Urine Urobilinogen Normal, Ur Leukocyte Esterase 500 H, Urine RBC 0 SEEN, Urine WBC >100 SEEN, Ur Squamous Epith Cells 0-5 SEEN, Urine Bacteria 0 SEEN, Urine Mucus 0 SEEN, Urine Yeast RARE 02/28/18 00:44: WBC 10.3, RBC 3.29 L, Hgb 8.3 L, Hct 24.1 L, MCV 73.3 L, MCH 25.2 L, MCHC 34.4, RDW 13.7, RDW Differential 35.5, Plt Count 400, MPV 8.6, Immature Gran % (Auto) 0.300, Neut % (Auto) 69.0, Lymph % (Auto) 16.7 L, [place] % (Auto) 9.9, Eos % (Auto) 3.9, Baso % (Auto) 0.2, Absolute Neuts (auto) 7.1, Absolute Lymphs (auto) 1.72, Total Counted Not Reportable, Anisocytosis RARE 02/28/18 00:44: Sodium 140, Potassium 4.5, Chloride 113 H, Carbon Dioxide 17.0 L , Anion Gap 10, BUN 59 H, Creatinine 4.25 H, Estim Creat Clear Calc 16.77, Est GFR (MDRD) Af Amer 15 L, Est GFR (MDRD) Non-Af 12 L, BUN/Creatinine Ratio 13.9, Glucose 108 H, Calcium 8.5, Total Bilirubin 0.40, AST 8 L, ALT 11 L, Alkaline Phosphatase 80, Total Protein 7.1, Albumin 3.1 L, Globulin 4.0, Albumin/Globulin Ratio 0.8 L, Lipase 67 L 02/28/18 06:57: POC Glucose 96 02/28/18 13:11: POC Glucose 61 L Current Medications Hydrocodone Bitart/Acetaminophen ([place] 5mg-325mg) 1 tablet PO Q6H PRN PRN PRN Reason: PAIN Amlodipine Besylate (Norvasc) 5 mg PO DAILY [facility] Last Admin: 02/28/18 08:29 Dose: 5 mg Aspirin (Ecotrin) 81 mg PO DAILY@0800 [facility] Last Admin: 02/28/18 08:29 Dose: 81 mg Ergocalciferol (Vitamin D) 50,000 unit PO WE [facility] Famotidine (Pepcid) 20 mg PO BID [facility] Last Admin: 02/28/18 08:26 Dose: 20 mg Ferrous Sulfate (Ferrous Sulfate) 325 mg PO TIDCM [facility] Last Admin: 02/28/18 08:29 Dose: 325 mg Heparin Sodium (Porcine) (Heparin Na) 5,000 unit SC Q8 [facility] Last Admin: 02/28/18 05:09 Dose: 5,000 unit Ceftriaxone Sodium (Rocephin) 1 gm in 50 mls @ 100 mls/hr IV Q24@2200 [facility] Dextrose/Sodium Chloride (Dextrose 5%/0.9% Nacl) 1,000 mls @ 75 mls/hr IV .[id number] [facility] Last Admin: 02/28/18 13:26 Dose: 75 mls/hr Insulin Human Lispro (Humalog Kwikpen (Bkc)) 0 unit SC ACHS [facility]; Protocol Last Admin: 02/28/18 13:15 Dose: Not Given Lactic Acid (Lac-Hydrin, Amlactin) 1 applic TOPICAL BID [facility]; Protocol Magnesium Hydroxide (Milk Of Magnesia) 30 ml PO DAILY PRN PRN PRN Reason: Constipation Metoprolol Tartrate (Lopressor (Beta Crystal)) 25 mg PO DAILY [facility] Last Admin: 02/28/18 08:29 Dose: 25 mg Morphine Sulfate () 1 mg IV Q4H PRN PRN PRN Reason: SEVERE PAIN (6-10/10) Last Admin: 02/28/18 08:22 Dose: 1 mg Nortriptyline HCl (Pamelor) 20 mg PO QHS [facility] Ondansetron HCl (Zofran) 4 mg IV Q8H PRN PRN PRN Reason: Nausea Last Admin: 02/28/18 10:48 Dose: 4 mg Sodium Bicarbonate (Sodium Bicarbonate) 650 mg PO BID [facility] Last Admin: 02/28/18 08:29 Dose: 650 mg Venlafaxine HCl (Effexor Xr) 150 mg PO DAILY [facility] Medical Necessity - Tobacco Use Smoking Status: Never smoker Assessment/Plan All Active Problems (Last Reviewed 02/28/18 @ 06:05 by Farhat Jin MD) Cystitis (Acute) Problem with dialysis access (Acute) Gastroenteritis (Acute) Ureteral calculi (Acute) Metabolic acidosis (Acute) Acute kidney injury (Acute) Nausea and vomiting (Acute) Sepsis (Acute) UTI (urinary tract infection) (Acute) FRANSICO (acute kidney injury) (Acute) 42-year-old with past medical history of CKD stagev/ESRD, on dialysis, CAD status post stent, hypertension, type II DM, history of kidney stones seen with complaints of severe right flank pain that started 2 days before admission. 1. Acute right flank pain, likely musculoskeletal, will manage symptomatically with topical analgesics, heating pad 2. Possible UTI, urine cultures are pending, will continue on IV ceftriaxone 3. Hypoglycemia, secondary to poor p.o. intake, patient is on Amaryl, will hold Amaryl, will manage hypoglycemia per protocol, Accu-Cheks, encouraged to eat 4. CKD stage V/ESRD, and appears to be at her baseline, will continue to monitor, follow nephrology 5. Hypertension, controlled, continue home meds 6. Anemia of CKD/iron deficiency, on p.o. iron 7. NAGMA continue to CKD, on oral bicarbonate 8. DVT Ppx- Heparin SC Code Visit Inpatient E&M: 54960 Subs Hosp L2
[2018-02-28] MEDS: Venlafaxine XR 150 MG Capsule PO (16:08)
[2018-02-28] MEDS: HYDROcodone Bitartrate/Apap 5/325 Tablet PO (16:14)
[2018-02-28 16:16] LABS: Bedside Glucose 69 mg/dL (70-110)
[2018-02-28 17:26] LABS: Bedside Glucose 63 mg/dL (70-110)
[2018-02-28 18:00] LABS: Bedside Glucose 76 mg/dL (70-110)
[2018-02-28] MEDS: Nortriptyline 10 MG Capsule 20 MG PO (21:20)
[2018-02-28] MEDS: Ammonium Lactate 225 gm Bottle 1 APPLIC TOPICAL (21:20)
[2018-02-28 22:36] LABS: Bedside Glucose 64 mg/dL (70-110)
[2018-02-28 22:36] LABS: Bedside Glucose 93 mg/dL (70-110)
[2018-02-28] MEDS: proMETHazine 25 MG/ML Syringe 6.25 MG IV (23:19)
[2018-03-01] VITALS (8 sets, daily range): BP systolic 149–169; BP diastolic 72–89; PULSE 82–88; RESP 16–18; TEMP 36.6–36.8; O2SAT 96–99
[2018-03-01] MEDS: Dextrose 5%/0.9% NaCl 1,000 ML 100 ML IV (02:38)
[2018-03-01 03:36] LABS: Bedside Glucose 71 mg/dL (70-110)
[2018-03-01] MEDS: Heparin Injection (Vial) 5,000 UNIT/ML VIAL 5000 UNIT SC ×3 (06:43→21:52)
[2018-03-01 06:50] LABS: Bedside Glucose 76 mg/dL (70-110)
[2018-03-01] MEDS: Aspirin E.C. 81 MG Tablet PO (07:48)
[2018-03-01] MEDS: Ferrous Sulfate 325 MG Tablet PO (07:48)
[2018-03-01] MEDS: proMETHazine 25 MG/ML Syringe 6.25 MG IV (07:55)
[2018-03-01 09:58] LABS: Absolute Neutrophil Count 7.3 X10^3/uL (2.0-7.7); Basophil# 0.02 X10^3/uL; Basophil% 0.2 % (0-1); Differential Indicated SCAN CRITERIA MET; Eosinophil# 0.38 X10^3/uL; Hematocrit 25.3 % (37-47); Hemoglobin 8.6 g/dl (12.0-15.0); Lymphocyte % 9.5 % (19-41); Mean Corpuscular Volume 73.5 fL (81-99); Mean Platelet Vol. 8.6 fl (6.2-12.0); Monocyte# 0.81 X10^3/uL; Monocyte% 8.6 % (0-10); Neutrophil # 7.33 X10^3/uL (2.7-7.7); Neutrophil % 77.5 % (47-70); POSITIVE COUNT NO; POSITIVE DIFFERENTIAL NO; POSITIVE MORPHOLOGY YES; Platelet Count 352 K/mm3 (150-450); RBC Distribution Width SD 36.5 fl (35.1-43.9); Red Blood Count 3.44 M/mm3 (4.2-5.4); White Blood Count 9.5 K/mm3 (4.4-11.0)
[2018-03-01 10:04] LABS: Albumin, Serum 2.8 g/dL (3.2-5.0); BUN 52 mg/dL (7-18); BUN/Creat Ratio 12.4 RATIO (10-20); Calcium,Total 8.5 mg/dL (8.5-10.1); Chloride 118 mmol/L (98-107); Creatinine, Serum 4.18 mg/dL (0.55-1.02); EST Glomerular Filtration Rate 12 mL/min (>60); Est Glom Filt Rate - Afr Amer 15 mL/min (>60); Estimated Creatinine Clearance 13.87 ml/min; Glucose 78 mg/dL (74-106); Phosphorus 4.3 mg/dL (2.5-4.9); Potassium 4.4 mmol/L (3.5-5.1); Sodium Level 144 mmol/L (136-145)
--- NOTE | 2018-03-01 10:15 | PCM.PN.HOSP ---
Patient Problems: Active and Suspected Problems (Last Reviewed 02/28/18 @ 06:05 by Farhat Jin MD) Cystitis (Acute) Subjective: Patient was seen and examined. Complains of persistent nausea the whole night. Not able to eat or drink. Has been hypoglycemic despite D5 normal saline Objective: Physical exam: General: Alert, Oriented x3, Cooperative, looks unwell, mildly dehydrated HEENT: Atraumatic, PERRLA, EOMI, Normocephalic Oral: Dry Mucosa Neck: Supple, No JVD, Negative Carotid Bruits Lungs: Clear to auscultation, Normal air movement Cardiovascular: Regular rate, Regular Rhythm, Normal S1, Normal S2, No murmurs Abdomen: Bowel Sounds Present, Soft, Non Tender, Non-Distended, No Hepato-splenomegaly Extremities: No edema Skin: - - dry, scaly skin Musculoskeletal: Tenderness - over the right flank Lymphatic: No Cervical, Supraclavicular, or Inguinal Adenopathy Neurological: Cranial nerves II-XII grossly intact, Neuro grossly intact Psych/Mental Status: Normal Affect, Appropriate Vitals/I&O's: Vital Signs Temp Pulse Resp BP Pulse Ox 97.9 F 87 18 162/89 H 98 03/01/18 08:25 03/01/18 08:25 03/01/18 08:25 03/01/18 08:25 03/01/18 08:25 Oxygen Delivery Method Room Air Weight: 96.4 kg Body Mass Index (BMI) 38.8 Intake and Output for Last 24 Hours 02/27/18 02/28/18 03/01/18 23:59 23:59 23:59 Intake Total 150 / 150 2743 / 2743 Output Total 400 / 400 800 / 800 Balance -250 / -250 1943 / 1943 Microbiology Past 72 Hours 02/28/18 00:40 Urine, Clean Catch Urine Culture - Final Mixed Gram Pos & Gram Neg Org Laboratory Results 02/28/18 13:11: POC Glucose 61 L 02/28/18 16:02: POC Glucose 69 L 02/28/18 17:22: POC Glucose 63 L 02/28/18 17:55: POC Glucose 76 02/28/18 21:08: POC Glucose 64 L 02/28/18 22:12: POC Glucose 93 03/01/18 02:31: POC Glucose 71 03/01/18 06:41: POC Glucose 76 03/01/18 09:27: WBC 9.5, RBC 3.44 L, Hgb 8.6 L, Hct 25.3 L, MCV 73.5 L, MCH 25.0 L, MCHC 34.0, RDW 14.0, RDW Differential 36.5, Plt Count 352, MPV 8.6, Immature Gran % (Auto) 0.200, Neut % (Auto) 77.5 H, Lymph % (Auto) 9.5 L, [place] % (Auto) 8.6, Eos % (Auto) 4.0, Baso % (Auto) 0.2, Absolute Neuts (auto) 7.3, Absolute Lymphs (auto) 0.90, Total Counted Pending 03/01/18 09:27: Sodium 144, Potassium 4.4, Chloride 118 H, Carbon Dioxide 16.0 L, BUN 52 H, Creatinine 4.18 H, Estim Creat Clear Calc 13.87, Est GFR (MDRD) Af Amer 15 L, Est GFR (MDRD) Non-Af 12 L, BUN/Creatinine Ratio 12.4, Glucose 78, Calcium 8.5, Phosphorus 4.3, Albumin 2.8 L Current Medications Hydrocodone Bitart/Acetaminophen ([place] 5mg-325mg) 1 tablet PO Q6H PRN PRN PRN Reason: PAIN Last Admin: 02/28/18 16:14 Dose: 1 tablet Amlodipine Besylate (Norvasc) 5 mg PO DAILY [facility] Last Admin: 02/28/18 08:29 Dose: 5 mg Aspirin (Ecotrin) 81 mg PO DAILY@0800 [facility] Last Admin: 03/01/18 07:48 Dose: 81 mg Ergocalciferol (Vitamin D) 50,000 unit PO WE [facility] Famotidine (Pepcid) 20 mg PO BID [facility] Last Admin: 02/28/18 21:20 Dose: 20 mg Ferrous Sulfate (Ferrous Sulfate) 325 mg PO TIDCM [facility] Last Admin: 03/01/18 07:48 Dose: 325 mg Heparin Sodium (Porcine) (Heparin Na) 5,000 unit SC Q8 [facility] Last Admin: 03/01/18 06:43 Dose: 5,000 unit Ceftriaxone Sodium (Rocephin) 1 gm in 50 mls @ 100 mls/hr IV Q24@2200 [facility] Last Admin: 02/28/18 21:21 Dose: 100 mls/hr Sodium Chloride 19.25 meq/Potassium Chloride 20 meq/Dextrose 264.8125 mls @ 20 mls/hr IV .[id number] [facility] Insulin Human Lispro (Humalog Kwikpen (Bkc)) 0 unit SC ACHS [facility]; Protocol Last Admin: 03/01/18 06:43 Dose: Not Given Lactic Acid (Lac-Hydrin, Amlactin) 1 applic TOPICAL BID [facility]; Protocol Last Admin: 02/28/18 21:20 Dose: 1 applicatio Magnesium Hydroxide (Milk Of Magnesia) 30 ml PO DAILY PRN PRN PRN Reason: Constipation Menthol ([place] Vanishing Scent) 1 applic TOPICAL TID PRN PRN PRN Reason: PAIN Metoprolol Tartrate (Lopressor (Beta Crystal)) 25 mg PO DAILY [facility] Last Admin: 02/28/18 08:29 Dose: 25 mg Morphine Sulfate () 1 mg IV Q4H PRN PRN PRN Reason: SEVERE PAIN (6-10/10) Last Admin: 02/28/18 08:22 Dose: 1 mg Nortriptyline HCl (Pamelor) 20 mg PO QHS [facility] Last Admin: 02/28/18 21:20 Dose: 20 mg Ondansetron HCl (Zofran) 4 mg IV Q8H PRN PRN PRN Reason: Nausea Last Admin: 02/28/18 22:16 Dose: 4 mg Promethazine HCl (Phenergan) 6.25 mg IV Q6H PRN PRN PRN Reason: NAUSEA/VOMITING Last Admin: 03/01/18 07:55 Dose: 6.25 mg Sodium Bicarbonate (Sodium Bicarbonate) 650 mg PO BID [facility] Last Admin: 02/28/18 21:20 Dose: 650 mg Venlafaxine HCl (Effexor Xr) 150 mg PO DAILY [facility] Last Admin: 02/28/18 16:08 Dose: 150 mg Medical Necessity - Tobacco Use Smoking Status: Never smoker Assessment/Plan All Active Problems (Last Reviewed 02/28/18 @ 06:05 by Farhat Jin MD) Cystitis (Acute) Problem with dialysis access (Acute) Gastroenteritis (Acute) Ureteral calculi (Acute) Metabolic acidosis (Acute) Acute kidney injury (Acute) Nausea and vomiting (Acute) Sepsis (Acute) UTI (urinary tract infection) (Acute) FRANSCIO (acute kidney injury) (Acute) 42-year-old with past medical history of CKD stagev/ESRD, on dialysis, CAD status post stent, hypertension, type II DM, history of kidney stones seen with complaints of severe right flank pain that started 2 days before admission. 1. Nausea and vomiting, persistent, likely related to gastroparesis, patient is on Zofran, Phenergan, will add Reglan as needed 2. Acute right flank pain, likely musculoskeletal, will manage symptomatically with topical analgesics, heating pad 3. Possible UTI, urine cultures are pending, will continue on IV ceftriaxone 4. Hypoglycemia, secondary to poor p.o. intake, patient is on Amaryl, will hold Amaryl, will manage hypoglycemia per protocol, Accu-Cheks, encouraged to eat, D10 IV fluids 5. CKD stage V/ESRD, and appears to be at her baseline, will continue to monitor, follow nephrology 6. Hypertension, controlled, continue home meds 7. Anemia of CKD/iron deficiency, on p.o. iron 8. NAGMA continue to CKD, on oral bicarbonate 9. DVT Ppx- Heparin SC Code Visit Inpatient E&M: 20370 Subs Hosp L2
[2018-03-01] MEDS: Metoclopramide 10 MG/2 ML Vial IV (10:53)
[2018-03-01] MEDS: Ammonium Lactate 225 gm Bottle 1 APPLIC TOPICAL ×2 (11:40→21:54)
[2018-03-01 11:46] LABS: Bedside Glucose 95 mg/dL (70-110)
[2018-03-01 16:31] LABS: Bedside Glucose 85 mg/dL (70-110)
[2018-03-01] MEDS: amLODIPine 5 MG Tablet PO (18:07)
[2018-03-01] MEDS: Metoprolol Tartrate 25 MG Tablet PO (18:07)
[2018-03-01] MEDS: Sodium Bicarbonate 650 MG Tablet PO (21:51)
[2018-03-01] MEDS: Nortriptyline 10 MG Capsule 20 MG PO (21:51)
[2018-03-01] MEDS: Ceftriaxone 1 GM/50 ML BAG IV (21:52)
[2018-03-01] MEDS: Venlafaxine XR 150 MG Capsule PO (21:52)
[2018-03-01] MEDS: Ondansetron 4 MG/2 ML Vial IV (22:10)
[2018-03-01 22:15] LABS: Bedside Glucose 86 mg/dL (70-110)
[2018-03-01] MEDS: HYDROcodone Bitartrate/Apap 5/325 Tablet PO (23:41)
[2018-03-02 01:50] VITALS: BP 155/87; PULSE 89; RESP 14; TEMP 37; O2SAT 95
[2018-03-02] MEDS: Heparin Injection (Vial) 5,000 UNIT/ML VIAL 5000 UNIT SC ×3 (06:15→21:39)
[2018-03-02 06:55] LABS: Albumin, Serum 2.8 g/dL (3.2-5.0); BUN 48 mg/dL (7-18); BUN/Creat Ratio 11.3 RATIO (10-20); Calcium,Total 8.7 mg/dL (8.5-10.1); Chloride 117 mmol/L (98-107); Creatinine, Serum 4.25 mg/dL (0.55-1.02); EST Glomerular Filtration Rate 12 mL/min (>60); Est Glom Filt Rate - Afr Amer 15 mL/min (>60); Estimated Creatinine Clearance 13.64 ml/min; Glucose 92 mg/dL (74-106); Phosphorus 4.1 mg/dL (2.5-4.9); Potassium 4.6 mmol/L (3.5-5.1); Sodium Level 144 mmol/L (136-145)
[2018-03-02 07:01] LABS: Bedside Glucose 86 mg/dL (70-110)
[2018-03-02 07:17] LABS: Absolute Neutrophil Count 5.4 X10^3/uL (2.0-7.7); Basophil# 0.01 X10^3/uL; Basophil% 0.1 % (0-1); Eosinophil# 0.43 X10^3/uL; Eosinophils% 5.5 % (0-5); Hematocrit 25.4 % (37-47); Hemoglobin 8.3 g/dl (12.0-15.0); Mean Corp Hgb Conc 32.7 g/gl (32-36); Mean Corpuscular Hgb 24.1 pg (27.0-32.0); Mean Corpuscular Volume 73.8 fL (81-99); Mean Platelet Vol. 8.4 fl (6.2-12.0); Monocyte# 0.86 X10^3/uL; Neutrophil # 5.43 X10^3/uL (2.7-7.7); Neutrophil % 69.3 % (47-70); Platelet Count 345 K/mm3 (150-450); RBC Distribution Width CV 14.8 % (11.6-14.6); Red Blood Count 3.44 M/mm3 (4.2-5.4); White Blood Count 7.8 K/mm3 (4.4-11.0)
[2018-03-02 07:18] LABS: Differential Indicated SCAN CRITERIA MET; POSITIVE COUNT NO; POSITIVE DIFFERENTIAL NO; POSITIVE MORPHOLOGY YES
--- NOTE | 2018-03-02 07:18 | PN_ITS ---
Patient Problems: Active and Suspected Problems (Last Reviewed 02/28/18 @ 06:05 by Farhat Jin MD) Cystitis (Acute) Subjective: Patient was seen and examined. She feels better today. Slightly nauseous. No fever or chills Discussed with Dr. Martinez, recommended Ross catheter as patient was told to intermittently catheterise herself but she has not been doing it. Objective: Physical exam: General: Alert, Oriented x3, Cooperative, looks unwell, mildly dehydrated HEENT: Atraumatic, PERRLA, EOMI, Normocephalic Oral: Dry Mucosa Neck: Supple, No JVD, Negative Carotid Bruits Lungs: Clear to auscultation, Normal air movement Cardiovascular: Regular rate, Regular Rhythm, Normal S1, Normal S2, No murmurs Abdomen: Bowel Sounds Present, Soft, Non Tender, Non-Distended, No Hepato- splenomegaly Extremities: No edema Skin: - - dry, scaly skin Musculoskeletal: Tenderness - over the right flank Lymphatic: No Cervical, Supraclavicular, or Inguinal Adenopathy Neurological: Cranial nerves II-XII grossly intact, Neuro grossly intact Psych/Mental Status: Normal Affect, Appropriate Vitals/I&O's: Vital Signs Temp Pulse Resp BP Pulse Ox 98.6 F 89 14 155/87 H 95 03/02/18 01:50 03/02/18 01:50 03/02/18 01:50 03/02/18 01:50 03/02/18 01:50 Oxygen Delivery Method Room Air Weight: 96.4 kg Body Mass Index (BMI) 38.8 Intake and Output for Last 24 Hours 02/28/18 03/01/18 03/02/18 23:59 23:59 23:59 Intake Total 150 / 150 3466 / 3466 1108.3 / 1108.3 Output Total 400 / 400 2300 / 2300 1400 / 1400 Balance -250 / -250 1166 / 1166 -291.7 / -291.7 Microbiology Past 72 Hours 02/28/18 00:40 Urine, Clean Catch Urine Culture - Final Mixed Gram Pos & Gram Neg Org Laboratory Results 03/01/18 09:27: WBC 9.5, RBC 3.44 L, Hgb 8.6 L, Hct 25.3 L, MCV 73.5 L, MCH 25.0 L, MCHC 34.0, RDW 14.0, RDW Differential 36.5, Plt Count 352, MPV 8.6, Immature Gran % (Auto) 0.200, Neut % (Auto) 77.5 H, Lymph % (Auto) 9.5 L, [place] % (Auto) 8.6, Eos % (Auto) 4.0, Baso % (Auto) 0.2, Absolute Neuts (auto) 7.3, Absolute Lymphs (auto) 0.90, Total Counted Not Reportable 03/01/18 09:27: Sodium 144, Potassium 4.4, Chloride 118 H, Carbon Dioxide 16.0 L , BUN 52 H, Creatinine 4.18 H, Estim Creat Clear Calc 13.87, Est GFR (MDRD) Af Amer 15 L, Est GFR (MDRD) Non-Af 12 L, BUN/Creatinine Ratio 12.4, Glucose 78, Calcium 8.5, Phosphorus 4.3, Albumin 2.8 L 03/01/18 11:37: POC Glucose 95 03/01/18 16:20: POC Glucose 85 03/01/18 22:01: POC Glucose 86 03/02/18 05:20: WBC 7.8, RBC 3.44 L, Hgb 8.3 L, Hct 25.4 L, MCV 73.8 L, MCH 24.1 L, MCHC 32.7, RDW 14.8 H, RDW Differential 40.0, Plt Count 345, MPV 8.4, Immature Gran % (Auto) 0.100, Neut % (Auto) 69.3, Lymph % (Auto) 14.0 L, [place] % (Auto) 11.0 H, Eos % (Auto) 5.5 H, Baso % (Auto) 0.1, Absolute Neuts (auto) 5.4, Absolute Lymphs (auto) 1.10, Total Counted Pending 03/02/18 05:20: Sodium 144, Potassium 4.6, Chloride 117 H, Carbon Dioxide 16.0 L , BUN 48 H, Creatinine 4.25 H, Estim Creat Clear Calc 13.64, Est GFR (MDRD) Af Amer 15 L, Est GFR (MDRD) Non-Af 12 L, BUN/Creatinine Ratio 11.3, Glucose 92, Calcium 8.7, Phosphorus 4.1, Albumin 2.8 L 03/02/18 06:51: POC Glucose 86 Current Medications Hydrocodone Bitart/Acetaminophen ([place] 5mg-325mg) 1 tablet PO Q6H PRN PRN PRN Reason: PAIN Last Admin: 03/01/18 23:41 Dose: 1 tablet Amlodipine Besylate (Norvasc) 5 mg PO DAILY [facility] Last Admin: 03/01/18 18:07 Dose: 5 mg Aspirin (Ecotrin) 81 mg PO DAILY@0800 [facility] Last Admin: 03/01/18 07:48 Dose: 81 mg Ergocalciferol (Vitamin D) 50,000 unit PO WE [facility] Ferrous Sulfate (Ferrous Sulfate) 325 mg PO TIDCM [facility] Last Admin: 03/01/18 18:10 Dose: Not Given Heparin Sodium (Porcine) (Heparin Na) 5,000 unit SC Q8 [facility] Last Admin: 03/02/18 06:15 Dose: 5,000 unit Ceftriaxone Sodium (Rocephin) 1 gm in 50 mls @ 100 mls/hr IV Q24@2200 [facility] Last Admin: 03/01/18 21:52 Dose: 100 mls/hr Sodium Chloride 19.25 meq/Potassium Chloride 20 meq/Dextrose 264.8125 mls @ 20 mls/hr IV .[id number] [facility] Last Admin: 03/02/18 02:48 Dose: 20 mls/hr Pantoprazole Sodium 40 mg/ (Sodium Chloride) 110 mls @ 330 mls/hr IV Q12 [facility] Last Admin: 03/01/18 18:11 Dose: 330 mls/hr Insulin Human Lispro (Humalog Kwikpen (Bkc)) 0 unit SC ACHS [facility]; Protocol Last Admin: 03/02/18 06:52 Dose: Not Given Lactic Acid (Lac-Hydrin, Amlactin) 1 applic TOPICAL BID [facility]; Protocol Last Admin: 03/01/18 21:54 Dose: 1 applicatio Magnesium Hydroxide (Milk Of Magnesia) 30 ml PO DAILY PRN PRN PRN Reason: Constipation Menthol (Bengay Vanishing Scent) 1 applic TOPICAL TID PRN PRN PRN Reason: PAIN Metoprolol Tartrate (Lopressor (Beta Crystal)) 25 mg PO DAILY [facility] Last Admin: 03/01/18 18:07 Dose: 25 mg Morphine Sulfate () 1 mg IV Q4H PRN PRN PRN Reason: SEVERE PAIN (6-10/10) Last Admin: 02/28/18 08:22 Dose: 1 mg Nortriptyline HCl (Pamelor) 20 mg PO QHS [facility] Last Admin: 03/01/18 21:51 Dose: 20 mg Ondansetron HCl (Zofran) 4 mg IV Q8H PRN PRN PRN Reason: Nausea Last Admin: 03/01/18 22:10 Dose: 4 mg Promethazine HCl (Phenergan) 6.25 mg IV Q6H PRN PRN PRN Reason: NAUSEA/VOMITING Last Admin: 03/01/18 07:55 Dose: 6.25 mg Sodium Bicarbonate (Sodium Bicarbonate) 650 mg PO BID [facility] Last Admin: 03/01/18 21:51 Dose: 650 mg Venlafaxine HCl (Effexor Xr) 150 mg PO QHS [facility] Last Admin: 03/01/18 21:52 Dose: 150 mg Medical Necessity - Tobacco Use Smoking Status: Never smoker Assessment/Plan All Active Problems (Last Reviewed 02/28/18 @ 06:05 by Farhat Jin MD) Cystitis (Acute) Problem with dialysis access (Acute) Gastroenteritis (Acute) Ureteral calculi (Acute) Metabolic acidosis (Acute) Acute kidney injury (Acute) Nausea and vomiting (Acute) Sepsis (Acute) UTI (urinary tract infection) (Acute) FRANSICO (acute kidney injury) (Acute) 42-year-old with past medical history of CKD stagev/ESRD, on dialysis, CAD status post stent, hypertension, type II DM, history of kidney stones seen with complaints of severe right flank pain that started 2 days before admission. 1. Nausea and vomiting, persistent, likely related to gastroparesis, improved today, will continue to monitor. 2. Acute right flank pain, likely musculoskeletal,will continue to manage symptomatically 3. UTI, complicated, history of moderate bilateral hydronephrosis, urine cultures are growing mixed gram-positive and negative organisms, will continue on IV ceftriaxone 4. Hypoglycemia, secondary to poor p.o. intake, off Amaryl, continue on D10 fluids, encourage to eat, continue to monitor with Accu-Cheks 5. CKD stage V/ESRD, creatinine is rising likely a combination of dehydration and postrenal from moderate hydronephrosis, patient refused catheterization, will continue on IV fluids, repeat labs in a.m. 6. Hypertension, uncontrolled, she has not been taking her home medications because of persistent vomiting, will continue with today as she is less nauseous 7. Anemia of CKD/iron deficiency, on p.o. iron 8. NAGMA continue to CKD, on oral bicarbonate 9. DVT Ppx- Heparin SC Code Visit Inpatient E&M: 57882 Subs Hosp L2
[2018-03-02] MEDS: 0.9% Normal Saline 1,000 ML 100 ML IV (07:30)
[2018-03-02 07:41] LABS: Hypochromasia 1+
[2018-03-02] MEDS: Aspirin E.C. 81 MG Tablet PO (07:43)
[2018-03-02] MEDS: Ferrous Sulfate 325 MG Tablet PO (07:43)
[2018-03-02 07:47] VITALS: PULSE 94
[2018-03-02] MEDS: Metoprolol Tartrate 25 MG Tablet PO (07:47)
[2018-03-02] MEDS: amLODIPine 5 MG Tablet PO (07:47)
[2018-03-02] MEDS: Ammonium Lactate 225 gm Bottle 1 APPLIC TOPICAL ×2 (07:48→21:40)
[2018-03-02 08:13] VITALS: BP 161/90; PULSE 94; RESP 18; TEMP 36.6; O2SAT 98
[2018-03-02 08:17] VITALS: PULSE 94
--- NOTE | 2018-03-02 08:56 | CON.PCM_ITS ---
Reason for Consult Date of Consultation: 03/02/18 Reason for Consultation: Chronic bilateral hydronephrosis chronic distention of the bladder History of Present Illness: The patient is a 42 year old female who was seen in the past she has a distended bladder and chronic bilateral hydronephrosis with reflux. She had kidney stones in the past. Recommend that she do self intermittent catheterization she is refused that we talked about the options of the catheter and she refused that. Today recommended we try to place a catheter just to decompress the urinary system to see if her creatinine will improve but she does not want a catheter she refuses a catheter, for now we will recommend self intermittent catheterization will have the nurses here started to try to do it she was a little bit reluctant to learn this she is done this in the past she knows how to do it and she was instructed that she needs to do self intermittent catheterization to keep her bladder empty keep her urine decompressed and to maximize her decompression of her urinary system that she may end up on dialysis, she is aware that she may end up on dialysis because of failure to follow instructions. Past Medical History Past Medical History (Chronic Problems): Chronic Problems (Last Reviewed 02/28/18 @ 06:05 by Farhat Jin MD) Chronic renal failure, stage 4 (severe) (Chronic) Morbid obesity (Chronic) HTN (hypertension) (Chronic) Bilateral hydronephrosis (Chronic) Iron deficiency anemia (Chronic) Type II diabetes mellitus (Chronic) Coronary artery disease (Chronic) Chronic low back pain (Chronic) Hydroureter (Chronic) Hydronephrosis (Chronic) Bladder outlet obstruction (Chronic) Medical History: Medical History (Last Reviewed 02/28/18 @ 06:05 by Farhat Jin MD) Problem with dialysis access (Acute) T82.898A Chronic renal failure, stage 4 (severe) (Chronic) N18.4 Anemia D64.9 Anxiety and depression F41.8 Back problem M53.9 Carpal tunnel syndrome G56.00 Diabetes type 2, controlled E11.9 H/O nephrolithotomy with removal of calculi Z98.890, Z87.442 H/O transfusion of whole blood Z92.89 Headache R51 Heart disease I51.9 Hives L50.9 Kidney disease N28.9 Kidney failure N19 Kidney stone N20.0 Neuropathy G62.9 Recurrent infections B99.9 Seasonal allergies J30.2 UTI (urinary tract infection) N39.0 Vitamin deficiency E56.9 HTN (hypertension) I10 Allergies ciprofloxacin [From Cipro] Adverse Reaction (Verified 02/27/18 22:39) Vomiting contrast dye Allergy (Severe, Uncoded 02/27/18 22:39) Anaphylaxis Home Medications: Ambulatory Orders Medication Instructions Recorded Ergocalciferol [Vitamin D] 50,000 unit PO WE 04/18/17 Insulin Glargine,Hum.rec.anlog 25 unit SQ QHS 04/18/17 [Basaglar Kwikpen U-100] Amlodipine [Norvasc] 5 mg PO DAILY #30 tab 07/09/17 Aspirin E.C. [Ecotrin] 81 mg PO DAILY@0800 #30 tab 07/09/17 Ondansetron HCl [Zofran] 4 mg PO Q6H PRN #30 tab 07/09/17 Glimepiride [Amaryl] 2 mg PO DAILY 07/31/17 Metoprolol Tartrate [Lopressor 25 mg PO DAILY 07/31/17 (beta hellen)] Potassium Citrate [Potassium 10 meq PO TID 07/31/17 Citrate ER] FreeStyle Kan 10 Day Sensor kit See Dose Instructions .ROUTE 11/06/17 .MEDSUPPLY #3 ea NS flash glucose scanning reader See Dose Instructions .ROUTE 11/06/17 .MEDSUPPLY #1 ea nortriptyline 10 mg capsule 20 mg PO QHS 11/14/17 Famotidine [Pepcid] 20 mg PO BID 11/27/17 Ferrous Sulfate 325 mg PO TID 11/27/17 Docusate Sodium [Colace] 100 mg PO DAILY PRN PRN 02/28/18 Hydrocodone/Acetaminophen [[place] 1 each PO Q6H PRN PRN 02/28/18 5-325 Tablet] Sodium Bicarbonate 325 mg PO BID 02/28/18 Venlafaxine XR [Effexor Xr] 150 mg PO DAILY 02/28/18 Surgical History: Surgical History (Last Reviewed 02/28/18 @ 06:05 by Farhat Jin MD) H/O heart artery stent Z95.5 History of carpal tunnel surgery Z92.89 Presence of surgically created arteriovenous shunt for hemodialysis Z99.2 Surgical History: - Psychiatric History: No pertinent psych hx [employer] History: No pertinent [employer] SECR[employer]ARY history Smoking Status: Never smoker Alcohol: None - *Family History Maternal History Items: Unknown - Patient was adopted and she does not know her family of origin to be able to provide any family medical history. Paternal History Items: Unknown - Patient was adopted and she does not know her family of origin to be able to provide any family medical history. Physical Exam - Physical Exam Vital Signs Temp 97.8 F 03/02/18 08:13 Pulse 94 03/02/18 08:17 Resp 18 03/02/18 08:13 BP 161/90 H 03/02/18 08:13 Pulse Ox 98 03/02/18 08:13 Intake & Output 02/28/18 03/01/18 03/02/18 23:59 23:59 23:59 Intake Total 150 / 150 3466 / 3466 1108.3 / 1108.3 Output Total 400 / 400 2300 / 2300 1400 / 1400 Balance -250 / -250 1166 / 1166 -291.7 / -291.7 Weight: 96.4 kg Intake: Oral 100 / 100 920 / 920 600 / 600 IV fluid/meds 50 / 50 2546 / 2546 508.3 / 508.3 Output: Urine 400 / 400 2300 / 2300 1400 / 1400 General: Alert, Oriented x3 HEENT: Atraumatic Oral: Moist Mucosa Neck: Supple Lungs: Normal air movement Cardiovascular: Regular rate Abdomen: Soft Microbiology Past 72 Hours 02/28/18 00:40 Urine Culture - Final Urine, Clean Catch Mixed Gram Pos & Gram Neg Org Laboratory Tests Past 24 Hrs 03/01/18 03/01/18 03/02/18 09:27 09:27 05:20 WBC 9.5 7.8 RBC 3.44 L 3.44 L Hgb 8.6 L 8.3 L Hct 25.3 L 25.4 L MCV 73.5 L 73.8 L MCH 25.0 L 24.1 L MCHC 34.0 32.7 RDW 14.0 14.8 H RDW Differential 36.5 40.0 Plt Count 352 345 MPV 8.6 8.4 Immature Gran % (Auto) 0.200 0.100 Neut % (Auto) 77.5 H 69.3 Lymph % (Auto) 9.5 L 14.0 L [place] % (Auto) 8.6 11.0 H Eos % (Auto) 4.0 5.5 H Baso % (Auto) 0.2 0.1 Absolute Neuts (auto) 7.3 5.4 Absolute Lymphs (auto) 0.90 1.10 Total Counted Not Reportable Not Reportable Hypochromasia 1+ Sodium 144 Potassium 4.4 Chloride 118 H Carbon Dioxide 16.0 L BUN 52 H Creatinine 4.18 H Estim Creat Clear Calc 13.87 Est GFR (MDRD) Af Amer 15 L Est GFR (MDRD) Non-Af 12 L BUN/Creatinine Ratio 12.4 Glucose 78 Calcium 8.5 Phosphorus 4.3 Albumin 2.8 L 03/02/18 05:20 WBC RBC Hgb Hct MCV MCH MCHC RDW RDW Differential Plt Count MPV Immature Gran % (Auto) Neut % (Auto) Lymph % (Auto) [place] % (Auto) Eos % (Auto) Baso % (Auto) Absolute Neuts (auto) Absolute Lymphs (auto) Total Counted Hypochromasia Sodium 144 Potassium 4.6 Chloride 117 H Carbon Dioxide 16.0 L BUN 48 H Creatinine 4.25 H Estim Creat Clear Calc 13.64 Est GFR (MDRD) Af Amer 15 L Est GFR (MDRD) Non-Af 12 L BUN/Creatinine Ratio 11.3 Glucose 92 Calcium 8.7 Phosphorus 4.1 Albumin 2.8 L Assessment/Plan All Active Problems (Last Reviewed 02/28/18 @ 06:05 by Farhat Jin MD) Cystitis (Acute) Problem with dialysis access (Acute) Gastroenteritis (Acute) Ureteral calculi (Acute) Metabolic acidosis (Acute) Acute kidney injury (Acute) Nausea and vomiting (Acute) Sepsis (Acute) UTI (urinary tract infection) (Acute) FRANSICO (acute kidney injury) (Acute) 42-year-old female with multiple medical problems chronic renal failure chronic distended bladder and bilateral hydronephrosis probably from reflux she has had kidney stones in the past. She is failed to follow medical instructions I did see her in the past and clearly recommended self intermittent catheterization to keep her bladder empty in order to prevent reflux and damaging reflux your kidneys, she is failed to do this, her family was also present when she saw her abdomen is a situation she is in the mother with her mother she is she is side catheterization.
[2018-03-02 11:40] LABS: Bedside Glucose 85 mg/dL (70-110)
[2018-03-02 15:00] VITALS: BP 162/80; PULSE 84; RESP 18; TEMP 36.7; O2SAT 100
[2018-03-02 16:31] LABS: Bedside Glucose 112 mg/dL (70-110)
[2018-03-02] MEDS: Sodium Bicarbonate 650 MG Tablet PO (21:38)
[2018-03-02 21:39] VITALS: BP 163/94; PULSE 86; RESP 16; TEMP 36.8; O2SAT 100
[2018-03-02] MEDS: Venlafaxine XR 150 MG Capsule PO (21:39)
[2018-03-02] MEDS: Nortriptyline 10 MG Capsule 20 MG PO (21:39)
[2018-03-02 22:01] LABS: Bedside Glucose 118 mg/dL (70-110)
[2018-03-02] MEDS: Ceftriaxone 1 GM/50 ML BAG IV (22:28)
[2018-03-03 03:40] VITALS: BP 158/89; PULSE 90; RESP 16; TEMP 36.8; O2SAT 96
[2018-03-03 06:09] LABS: Absolute Lymphocyte Count 1.05 X10^3/ul (0.83-4.51); Absolute Neutrophil Count 5.4 X10^3/uL (2.0-7.7); Basophil# 0.01 X10^3/uL; Basophil% 0.1 % (0-1); Eosinophil# 0.45 X10^3/uL; Eosinophils% 5.9 % (0-5); Hematocrit 25.3 % (37-47); Hemoglobin 8.3 g/dl (12.0-15.0); Lymphocyte # 1.05 X10^3/ul (4.0); Lymphocyte % 13.9 % (19-41); Mean Corp Hgb Conc 32.8 g/gl (32-36); Mean Corpuscular Hgb 24.2 pg (27.0-32.0); Mean Corpuscular Volume 73.8 fL (81-99); Mean Platelet Vol. 7.9 fl (6.2-12.0); Monocyte# 0.67 X10^3/uL; Monocyte% 8.9 % (0-10); Neutrophil # 5.38 X10^3/uL (2.7-7.7); Neutrophil % 71.1 % (47-70); Platelet Count 300 K/mm3 (150-450); RBC Distribution Width SD 40.3 fl (35.1-43.9); Red Blood Count 3.43 M/mm3 (4.2-5.4); White Blood Count 7.6 K/mm3 (4.4-11.0)
[2018-03-03 06:13] LABS: Differential Indicated SCAN CRITERIA MET; POSITIVE COUNT NO; POSITIVE DIFFERENTIAL NO; POSITIVE MORPHOLOGY YES
[2018-03-03 06:20] LABS: Albumin, Serum 2.7 g/dL (3.2-5.0); BUN 41 mg/dL (7-18); BUN/Creat Ratio 10.1 RATIO (10-20); Calcium,Total 8.5 mg/dL (8.5-10.1); Chloride 116 mmol/L (98-107); Creatinine, Serum 4.07 mg/dL (0.55-1.02); EST Glomerular Filtration Rate 13 mL/min (>60); Est Glom Filt Rate - Afr Amer 15 mL/min (>60); Estimated Creatinine Clearance 14.24 ml/min; Glucose 91 mg/dL (74-106); Potassium 4.7 mmol/L (3.5-5.1); Sodium Level 143 mmol/L (136-145)
[2018-03-03] MEDS: Heparin Injection (Vial) 5,000 UNIT/ML VIAL 5000 UNIT SC ×3 (06:46→22:28)
[2018-03-03 06:56] LABS: Differential Comment SCANNED; Hypochromasia RARE; Target Cells RARE
[2018-03-03 07:01] LABS: Bedside Glucose 92 mg/dL (70-110)
[2018-03-03] MEDS: 0.9% Normal Saline 1,000 ML 100 ML IV (07:25)
[2018-03-03] MEDS: Ondansetron 4 MG/2 ML Vial IV (07:25)
[2018-03-03 08:37] VITALS: BP 160/101; PULSE 98; RESP 18; TEMP 37; O2SAT 99
[2018-03-03 08:40] VITALS: PULSE 98
[2018-03-03] MEDS: Aspirin E.C. 81 MG Tablet PO (08:40)
[2018-03-03] MEDS: amLODIPine 5 MG Tablet PO (08:40)
[2018-03-03] MEDS: Metoprolol Tartrate 25 MG Tablet PO (08:40)
[2018-03-03] MEDS: Ferrous Sulfate 325 MG Tablet PO ×3 (08:40→16:14)
[2018-03-03] MEDS: Ammonium Lactate 225 gm Bottle 1 APPLIC TOPICAL ×2 (08:41→22:29)
--- NOTE | 2018-03-03 08:49 | PCM.PN.HOSP ---
Patient Problems: Active and Suspected Problems (Last Reviewed 02/28/18 @ 06:05 by Farhat Jin MD) Cystitis (Acute) Subjective: Patient is a 42-year-old lady with history of kidney stones and recurrent UTIs who presented with right flank pain and initial assessment of suspected complicated UTI was made treated with Rocephin cultures came back positive for mixed organisms. Patient was also seen in consultation by Dr. Martinez plan is for patient to undergo cystogram this a.m. Objective: GENERAL: cooperative HEENT: Atraumatic; moist oral mucosa EYES; Anicteric, Normal Conjunctiva NECK; supple, normal thyroid, no distended JVD. RESPIRATORY: Diminished to auscultation bilaterally, CARDIOVASCULAR: Regular S1 S2, no audible murmurs GI: soft, non-tender, normoactive bowel sounds, : No Renal angle tenderness; EXTREMITIES: No edema, no clubbing, no cyanosis. MUSCULOSKELETAL: No Joint Tenderness; no muscle waisting NEURO: Awake; no lateralizing signs. SKIN: No Rash PSYCH; Normal affect Vitals/I&O's: Vital Signs Temp Pulse Resp BP Pulse Ox 98.6 F 98 18 160/101 H 99 03/03/18 08:37 03/03/18 08:40 03/03/18 08:37 03/03/18 08:37 03/03/18 08:37 Oxygen Delivery Method Room Air Weight: 96.4 kg Body Mass Index (BMI) 38.8 Intake and Output for Last 24 Hours 03/01/18 03/02/18 03/03/18 23:59 23:59 23:59 Intake Total 3466 / 3466 2774.3 / 2774.3 2049 / 2049 Output Total 2300 / 2300 3000 / 3000 1900 / 1900 Balance 1166 / 1166 -225.7 / -225.7 150 / 150 Microbiology Past 72 Hours 02/28/18 00:40 Urine, Clean Catch Urine Culture - Final Mixed Gram Pos & Gram Neg Org Laboratory Results 03/02/18 11:35: POC Glucose 85 03/02/18 16:27: POC Glucose 112 H 03/02/18 21:53: POC Glucose 118 H 03/03/18 05:40: WBC 7.6, RBC 3.43 L, Hgb 8.3 L, Hct 25.3 L, MCV 73.8 L, MCH 24.2 L, MCHC 32.8, RDW 15.0 H, RDW Differential 40.3, Plt Count 300, MPV 7.9, Immature Gran % (Auto) 0.100, Neut % (Auto) 71.1 H, Lymph % (Auto) 13.9 L, [place] % (Auto) 8.9, Eos % (Auto) 5.9 H, Baso % (Auto) 0.1, Absolute Neuts (auto) 5.4, Absolute Lymphs (auto) 1.05, Total Counted Not Reportable, Differential Comment SCANNED, Hypochromasia RARE, Target Cells RARE 03/03/18 05:40: Sodium 143, Potassium 4.7, Chloride 116 H, Carbon Dioxide 14.0 L, BUN 41 H, Creatinine 4.07 H, Estim Creat Clear Calc 14.24, Est GFR (MDRD) Af Amer 15 L, Est GFR (MDRD) Non-Af 13 L, BUN/Creatinine Ratio 10.1, Glucose 91, Calcium 8.5, Phosphorus 4.0, Albumin 2.7 L 03/03/18 06:50: POC Glucose 92 Current Medications Hydrocodone Bitart/Acetaminophen ([place] 5mg-325mg) 1 tablet PO Q6H PRN PRN PRN Reason: PAIN Last Admin: 03/01/18 23:41 Dose: 1 tablet Amlodipine Besylate (Norvasc) 5 mg PO DAILY [facility] Last Admin: 03/03/18 08:40 Dose: 5 mg Aspirin (Ecotrin) 81 mg PO DAILY@0800 [facility] Last Admin: 03/03/18 08:40 Dose: 81 mg Ergocalciferol (Vitamin D) 50,000 unit PO WE [facility] Ferrous Sulfate (Ferrous Sulfate) 325 mg PO TIDCM [facility] Last Admin: 03/03/18 08:40 Dose: 325 mg Heparin Sodium (Porcine) (Heparin Na) 5,000 unit SC Q8 [facility] Last Admin: 03/03/18 06:46 Dose: 5,000 unit Ceftriaxone Sodium (Rocephin) 1 gm in 50 mls @ 100 mls/hr IV Q24@2200 [facility] Last Admin: 03/02/18 22:28 Dose: 100 mls/hr Pantoprazole Sodium 40 mg/ (Sodium Chloride) 110 mls @ 330 mls/hr IV Q12 [facility] Last Admin: 03/03/18 08:41 Dose: 330 mls/hr Sodium Chloride () 1,000 mls @ 100 mls/hr IV .Q10H [facility] Stop: 03/03/18 16:59 Last Admin: 03/03/18 07:25 Dose: 100 mls/hr Insulin Human Lispro (Humalog Kwikpen (Bkc)) 0 unit SC ACHS [facility]; Protocol Last Admin: 03/03/18 06:50 Dose: Not Given Lactic Acid (Lac-Hydrin, Amlactin) 1 applic TOPICAL BID [facility]; Protocol Last Admin: 03/03/18 08:41 Dose: 1 applicatio Lidocaine/Prilocaine (Emla Cream W/Tegaderm) 5 gm TOPICAL Q6H PRN; Protocol PRN Reason: PAIN Magnesium Hydroxide (Milk Of Magnesia) 30 ml PO DAILY PRN PRN PRN Reason: Constipation Menthol (Bengay Vanishing Scent) 1 applic TOPICAL TID PRN PRN PRN Reason: PAIN Metoprolol Tartrate (Lopressor (Beta Crystal)) 25 mg PO DAILY [facility] Last Admin: 03/03/18 08:40 Dose: 25 mg Morphine Sulfate () 1 mg IV Q4H PRN PRN PRN Reason: SEVERE PAIN (6-10/10) Last Admin: 02/28/18 08:22 Dose: 1 mg Nortriptyline HCl (Pamelor) 20 mg PO QHS [facility] Last Admin: 03/02/18 21:39 Dose: 20 mg Ondansetron HCl (Zofran) 4 mg IV Q8H PRN PRN PRN Reason: Nausea Last Admin: 03/03/18 07:25 Dose: 4 mg Promethazine HCl (Phenergan) 6.25 mg IV Q6H PRN PRN PRN Reason: NAUSEA/VOMITING Last Admin: 03/01/18 07:55 Dose: 6.25 mg Sodium Bicarbonate (Sodium Bicarbonate) 650 mg PO BID [facility] Last Admin: 03/03/18 08:39 Dose: Not Given Venlafaxine HCl (Effexor Xr) 150 mg PO QHS [facility] Last Admin: 03/02/18 21:39 Dose: 150 mg Medical Necessity - Tobacco Use Smoking Status: Never smoker Assessment/Plan All Active Problems (Last Reviewed 02/28/18 @ 06:05 by Farhat Jin MD) Cystitis (Acute) Problem with dialysis access (Acute) Gastroenteritis (Acute) Ureteral calculi (Acute) Metabolic acidosis (Acute) Acute kidney injury (Acute) Nausea and vomiting (Acute) Sepsis (Acute) UTI (urinary tract infection) (Acute) FRANSICO (acute kidney injury) (Acute) Patient is a 42-year-old lady with history of kidney stones and recurrent UTIs who presented with right flank pain as well as nausea and vomiting an initial assessment of suspected complicated UTI was made treated with Rocephin cultures came back positive for mixed organisms. 1. Suspected complicated UTI patient was managed with Rocephin urine cultures came back positive for limits organisms 2. Persistent nausea vomiting felt to be secondary to gastroparesis from patient's underlying diabetes mellitus next 3. Obstructive uropathy; T of the abdomen obtained demonstrated Moderate hydronephrosis and moderate hydroureter bilaterally, chronic in appearance; Urinary bladder generalized mural thickening with mild over distention of the bladder in keeping with chronic urinary tract outlet obstruction; Left renal nonobstructing stone, unchanged. Patient seen in consultation by Dr. Martinez patient to undergo cystogram on 03/03/2018 for subsequent evaluation 4. Diabetes mellitus type 2 with complications including diabetic nephropathy; Patient on Accu-Cheks before meals and at bedtime with sliding scale coverage 5. CAD with remote stent placement 6. Depression patient is on Effexor 7. Chronic kidney disease stage V patient has been seen in the past by Dr. Odonnell 8. Anemia secondary to secondary to her underlying CKD monitoring H&H with plans to transfuse if patient becomes symptomatic or hemoglobin falls below 7 9. Hypertension-blood pressure controlled, home medications continued with dose adjustment as needed 10. Chronic back pain 11. Morbid obesity with BMI of 39 lifestyle modification including weight loss advised 12. DVT prophylaxis with subcu heparin Active Medications Hydrocodone Bitart/Acetaminophen ([place] 5mg-325mg) 1 tablet PO Q6H PRN PRN PRN Reason: PAIN Last Admin: 03/01/18 23:41 Dose: 1 tablet Amlodipine Besylate (Norvasc) 5 mg PO DAILY [facility] Last Admin: 03/03/18 08:40 Dose: 5 mg Aspirin (Ecotrin) 81 mg PO DAILY@0800 [facility] Last Admin: 03/03/18 08:40 Dose: 81 mg Ergocalciferol (Vitamin D) 50,000 unit PO WE [facility] Ferrous Sulfate (Ferrous Sulfate) 325 mg PO TIDCM [facility] Last Admin: 03/03/18 08:40 Dose: 325 mg Heparin Sodium (Porcine) (Heparin Na) 5,000 unit SC Q8 [facility] Last Admin: 03/03/18 06:46 Dose: 5,000 unit Ceftriaxone Sodium (Rocephin) 1 gm in 50 mls @ 100 mls/hr IV Q24@2200 [facility] Last Admin: 03/02/18 22:28 Dose: 100 mls/hr Pantoprazole Sodium 40 mg/ (Sodium Chloride) 110 mls @ 330 mls/hr IV Q12 [facility] Last Admin: 03/03/18 08:41 Dose: 330 mls/hr Sodium Chloride () 1,000 mls @ 100 mls/hr IV .Q10H [facility] Stop: 03/03/18 16:59 Last Admin: 03/03/18 07:25 Dose: 100 mls/hr Insulin Human Lispro (Humalog Kwikpen (Bkc)) 0 unit SC ACHS [facility]; Protocol Last Admin: 03/03/18 06:50 Dose: Not Given Lactic Acid (Lac-Hydrin, Amlactin) 1 applic TOPICAL BID [facility]; Protocol Last Admin: 03/03/18 08:41 Dose: 1 applicatio Lidocaine/Prilocaine (Emla Cream W/Tegaderm) 5 gm TOPICAL Q6H PRN; Protocol PRN Reason: PAIN Magnesium Hydroxide (Milk Of Magnesia) 30 ml PO DAILY PRN PRN PRN Reason: Constipation Menthol (Bengay Vanishing Scent) 1 applic TOPICAL TID PRN PRN PRN Reason: PAIN Metoprolol Tartrate (Lopressor (Beta Crystal)) 25 mg PO DAILY [facility] Last Admin: 03/03/18 08:40 Dose: 25 mg Morphine Sulfate () 1 mg IV Q4H PRN PRN PRN Reason: SEVERE PAIN (6-10/10) Last Admin: 02/28/18 08:22 Dose: 1 mg Nortriptyline HCl (Pamelor) 20 mg PO QHS [facility] Last Admin: 03/02/18 21:39 Dose: 20 mg Ondansetron HCl (Zofran) 4 mg IV Q8H PRN PRN PRN Reason: Nausea Last Admin: 03/03/18 07:25 Dose: 4 mg Promethazine HCl (Phenergan) 6.25 mg IV Q6H PRN PRN PRN Reason: NAUSEA/VOMITING Last Admin: 03/01/18 07:55 Dose: 6.25 mg Sodium Bicarbonate (Sodium Bicarbonate) 650 mg PO BID [facility] Last Admin: 03/03/18 08:39 Dose: Not Given Venlafaxine HCl (Effexor Xr) 150 mg PO QHS [facility] Last Admin: 03/02/18 21:39 Dose: 150 mg Clinical Impression(s) from Imaging Studies Abdomen/Pelvis CT 02/27/18 23:40 IMPRESSION: 1. Moderate hydronephrosis and moderate hydroureter bilaterally, chronic in appearance. 2. Urinary bladder generalized mural thickening with mild over distention of the bladder in keeping with chronic urinary tract outlet obstruction. 3. Left renal nonobstructing stone, unchanged. 4. Borderline retroperitoneal lymphadenopathy, unchanged. Consider PET CT evaluation. Individualized dose optimization techniques were used for this CT. at 0116 Reported and signed by: Con Angeles MD Electronically Signed: Con Angeles, at 1:14 EST Tel , Service support , Code Visit Inpatient E&M: 80240 [facility] Hosp L3
[2018-03-03] MEDS: LORazepam 0.5 MG Tablet PO (10:03)
[2018-03-03] MEDS: Lidocaine/Prilocaine HCl 5 GM Tube TOPICAL (10:18)
--- NOTE | 2018-03-03 10:45 | RAD_ITS ---
CLINICAL HISTORY: Female, 42 years old. Bilateral hydronephrosis. PROCEDURE: Voiding cystourethrogram. FLUOROSCOPY TIME (if supplied): (0:41) minutes/seconds. 3 images were obtained. 200 mL of contrast installed into the bladder in a retrograde fashion through the indwelling catheter. The radiology installed the contrast into the bladder. TECHNIQUE: (All elements of maximal sterile barrier technique followed, including US elements as applicable) There is evidence of a tiny outpouchings along the right lateral wall of the bladder. These may represent tiny trabeculations. A small outpouching is also seen along the left side of the urinary bladder. There is no evidence of vesicoureteral reflux. No post void residual is seen. RAD/Voiding Urethrocystography IMPRESSION: Findings suggestive of 3 small trabeculations on the right side of the bladder and a single trabeculation along the left side of the bladder. Electronically Signed: Donald Pride MD at 13:31 EST Tel [phone], Service support ,
[2018-03-03 12:40] VITALS: BP 153/85
[2018-03-03 12:51] LABS: Bedside Glucose 94 mg/dL (70-110)
[2018-03-03 14:45] VITALS: BP 159/89; PULSE 85; RESP 18; TEMP 36.7; O2SAT 100
--- NOTE | 2018-03-03 15:15 | CASEMGMT ---
JULITO MAYFIELD Face to Face with patient for initial transition planning/care coordination assessment. RN CM introduced self and role at [facility]. Patient lying in bed, alert and oriented. Patient willing to participate in assessment and is able to answer all questions appropriately. Care providers, pharmacy, and demographics verified. Patient wishes to discharge home, denies need for home health at this time. Patient states she has no further needs or concerns at this time. CM to follow for discharge planning needs that may arise. PCP: Raiza Specialists: [facility]erred [facility]acy: [facility] Insurance: [employer] Prescription Benefit: [employer] Living Will/HPOA: None LNOK: Parents Living Arrangements: Patient lives alone in 1st floor apt, independent Transportation: self/parents DME/HHC: Patient has a walker. No prior HHC Disposition Plan: Patient to discharge home with family support and follow-up plans in place. Josefina LU, RN, CM
[2018-03-03 16:21] LABS: Bedside Glucose 108 mg/dL (70-110)
[2018-03-03 20:40] VITALS: BP 183/98; PULSE 96; RESP 16; TEMP 36.7; O2SAT 100
[2018-03-03] MEDS: Venlafaxine XR 150 MG Capsule PO (22:28)
[2018-03-03] MEDS: Nortriptyline 10 MG Capsule 20 MG PO (22:28)
[2018-03-03] MEDS: Sodium Bicarbonate 650 MG Tablet PO (22:28)
[2018-03-03 22:40] LABS: Bedside Glucose 92 mg/dL (70-110)
[2018-03-03] MEDS: Ceftriaxone 1 GM/50 ML BAG IV (23:21)
--- NOTE | 2018-03-04 01:11 | NURSING ---
PT VOIDED 550 ML IN TOILET. THIS NURSE OFFERED TO STRAIGHT CATH FOR URINARY RETENTION, BUT PT DECLINED AT THIS TIME. PT DENIED ANY URINARY RETENTION SYMPTOMS AT THIS TIME.
[2018-03-04 04:00] VITALS: BP 139/93; PULSE 104; RESP 16; TEMP 36.8; O2SAT 99
[2018-03-04] MEDS: Ondansetron 4 MG/2 ML Vial IV ×2 (04:06→17:00)
[2018-03-04] MEDS: Heparin Injection (Vial) 5,000 UNIT/ML VIAL 5000 UNIT SC ×3 (06:37→22:31)
[2018-03-04 06:50] LABS: Bedside Glucose 87 mg/dL (70-110)
--- NOTE | 2018-03-04 07:25 | PCM.CONS.B ---
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 cystogram negative for reflux. recommend I take her to surgery for bilateral retrogrades to r/o obstruction possible stent tomorrow. NPO at Midnight.
--- NOTE | 2018-03-04 07:41 | PN_ITS ---
Patient Problems: Active and Suspected Problems (Last Reviewed 02/28/18 @ 06:05 by Farhat Jin MD) Cystitis (Acute) Subjective: Patient seen complains of persistent nausea vomited a couple of times during the night. Ordered gastric emptying studies to confirm the suspicion of gastroparesis Cystogram performed on 03/03/2018 failed to demonstrate reflux. Patient is scheduled to undergo bilateral retrograde to rule out obstruction and possible stent placement by Dr. Martinez on 03/05/2018 Objective: GENERAL: cooperative HEENT: Atraumatic; moist oral mucosa EYES; Anicteric, Normal Conjunctiva NECK; supple, normal thyroid, no distended JVD. RESPIRATORY: Diminished to auscultation bilaterally, CARDIOVASCULAR: Regular S1 S2, no audible murmurs GI: soft, non-tender, normoactive bowel sounds, : No Renal angle tenderness; EXTREMITIES: No edema, no clubbing, no cyanosis. MUSCULOSKELETAL: No Joint Tenderness; no muscle waisting NEURO: Awake; no lateralizing signs. SKIN: No Rash PSYCH; Normal affect Vitals/I&O's: Vital Signs Temp Pulse Resp BP Pulse Ox 98.3 F 104 H 16 139/93 H 99 03/04/18 04:00 03/04/18 04:00 03/04/18 04:00 03/04/18 04:00 03/04/18 04:00 Oxygen Delivery Method Room Air Weight: 96.4 kg Body Mass Index (BMI) 38.8 Intake and Output for Last 24 Hours 03/02/18 03/03/18 03/04/18 23:59 23:59 23:59 Intake Total 2774.3 / 2774.3 3178 / 3178 1027.8 / 1027.8 Output Total 3000 / 3000 2700 / 2700 550 / 550 Balance -225.7 / -225.7 478 / 478 477.8 / 477.8 Microbiology Past 72 Hours 02/28/18 00:40 Urine, Clean Catch Urine Culture - Final Mixed Gram Pos & Gram Neg Org Laboratory Results 03/03/18 12:35: POC Glucose 94 03/03/18 16:13: POC Glucose 108 03/03/18 22:26: POC Glucose 92 03/04/18 06:39: POC Glucose 87 Current Medications Hydrocodone Bitart/Acetaminophen ([place] 5mg-325mg) 1 tablet PO Q6H PRN PRN PRN Reason: PAIN Last Admin: 03/01/18 23:41 Dose: 1 tablet Amlodipine Besylate (Norvasc) 5 mg PO DAILY [facility] Last Admin: 03/03/18 08:40 Dose: 5 mg Aspirin (Ecotrin) 81 mg PO DAILY@0800 [facility] Last Admin: 03/03/18 08:40 Dose: 81 mg Ergocalciferol (Vitamin D) 50,000 unit PO WE [facility] Ferrous Sulfate (Ferrous Sulfate) 325 mg PO TIDCM [facility] Last Admin: 03/03/18 16:14 Dose: 325 mg Heparin Sodium (Porcine) (Heparin Na) 5,000 unit SC Q8 [facility] Last Admin: 03/04/18 06:37 Dose: 5,000 unit Ceftriaxone Sodium (Rocephin) 1 gm in 50 mls @ 100 mls/hr IV Q24@2200 [facility] Last Admin: 03/03/18 23:21 Dose: 100 mls/hr Pantoprazole Sodium 40 mg/ (Sodium Chloride) 110 mls @ 330 mls/hr IV Q12 [facility] Last Admin: 03/03/18 22:28 Dose: 330 mls/hr Insulin Human Lispro (Humalog Kwikpen (Bkc)) 0 unit SC ACHS [facility]; Protocol Last Admin: 03/04/18 06:40 Dose: Not Given Lactic Acid (Lac-Hydrin, Amlactin) 1 applic TOPICAL BID [facility]; Protocol Last Admin: 03/03/18 22:29 Dose: 1 applicatio Lidocaine/Prilocaine (Emla Cream W/Tegaderm) 5 gm TOPICAL Q6H PRN; Protocol PRN Reason: PAIN Last Admin: 03/03/18 10:18 Dose: 1 applicatio Magnesium Hydroxide (Milk Of Magnesia) 30 ml PO DAILY PRN PRN PRN Reason: Constipation Menthol (Bengay Vanishing Scent) 1 applic TOPICAL TID PRN PRN PRN Reason: PAIN Metoprolol Tartrate (Lopressor (Beta Crystal)) 25 mg PO DAILY [facility] Last Admin: 03/03/18 08:40 Dose: 25 mg Morphine Sulfate () 1 mg IV Q4H PRN PRN PRN Reason: SEVERE PAIN (6-10/10) Last Admin: 02/28/18 08:22 Dose: 1 mg Nortriptyline HCl (Pamelor) 20 mg PO QHS [facility] Last Admin: 03/03/18 22:28 Dose: 20 mg Ondansetron HCl (Zofran) 4 mg IV Q8H PRN PRN PRN Reason: Nausea Last Admin: 03/04/18 04:06 Dose: 4 mg Promethazine HCl (Phenergan) 6.25 mg IV Q6H PRN PRN PRN Reason: NAUSEA/VOMITING Last Admin: 03/01/18 07:55 Dose: 6.25 mg Sodium Bicarbonate (Sodium Bicarbonate) 650 mg PO BID [facility] Last Admin: 03/03/18 22:28 Dose: 650 mg Venlafaxine HCl (Effexor Xr) 150 mg PO QHS [facility] Last Admin: 03/03/18 22:28 Dose: 150 mg Medical Necessity - Tobacco Use Smoking Status: Never smoker Assessment/Plan All Active Problems (Last Reviewed 02/28/18 @ 06:05 by Farhat Jin MD) Cystitis (Acute) Problem with dialysis access (Acute) Gastroenteritis (Acute) Ureteral calculi (Acute) Metabolic acidosis (Acute) Acute kidney injury (Acute) Nausea and vomiting (Acute) Sepsis (Acute) UTI (urinary tract infection) (Acute) FRANSICO (acute kidney injury) (Acute) Patient is a 42-year-old lady with history of kidney stones and recurrent UTIs who presented with right flank pain as well as nausea and vomiting an initial assessment of suspected complicated UTI was made treated with Rocephin cultures came back positive for mixed organisms. 1. Suspected complicated UTI patient was managed with Rocephin urine cultures came back positive for mixed organisms 2. Persistent nausea vomiting felt to be secondary to gastroparesis from maryam ent's underlying diabetes mellitus. Ordered gastric emptying studies to confirm the suspicion of gastroparesis on 3. Obstructive uropathy; T of the abdomen obtained demonstrated Moderate hydronephrosis and moderate hydroureter bilaterally, chronic in appearance; Urinary bladder generalized mural thickening with mild over distention of the bladder in keeping with chronic urinary tract outlet obstruction; Left renal nonobstructing stone, unchanged. Patient seen in consultation by Juan; Cystogram performed on 03/03/2018 failed to demonstrate reflux. Patient is scheduled to undergo bilateral retrograde to rule out obstruction and possible stent placement by Dr. Martinez on 03/05/2018 4. Diabetes mellitus type 2 with complications including diabetic nephropathy; Patient on Accu-Cheks before meals and at bedtime with sliding scale coverage 5. CAD with remote stent placement 6. Depression patient is on Effexor 7. Chronic kidney disease stage V patient has been seen in the past by Dr. Odonnell 8. Anemia secondary to secondary to her underlying CKD monitoring H&H with plans to transfuse if patient becomes symptomatic or hemoglobin falls below 7 9. Hypertension-blood pressure controlled, home medications continued with dose adjustment as needed 10. Chronic back pain 11. Morbid obesity with BMI of 39 lifestyle modification including weight loss advised 12. DVT prophylaxis with subcu heparin Code Visit Inpatient E&M: [id number] [facility] Hosp L3
[2018-03-04] MEDS: Aspirin E.C. 81 MG Tablet PO (08:42)
[2018-03-04] MEDS: Ferrous Sulfate 325 MG Tablet PO ×2 (08:42→16:59)
[2018-03-04] MEDS: Ammonium Lactate 225 gm Bottle 1 APPLIC TOPICAL ×2 (08:42→22:31)
[2018-03-04 08:43] VITALS: PULSE 101
[2018-03-04] MEDS: Metoprolol Tartrate 25 MG Tablet PO (08:43)
[2018-03-04] MEDS: amLODIPine 5 MG Tablet PO (08:43)
--- NOTE | 2018-03-04 08:55 | NM_ITS ---
Exam: Nuclear medicine gastric emptying study. HISTORY: Diabetes. Nausea. COMPARISON: 03/26/2017 TECHNIQUE: The patient was fed a meal of 1.2 mCi technetium sulfur colloid in eggs. Imaging was performed from anterior projection for 60 minutes FINDINGS: There is a relatively linear emptying curve which is normal. T1/2 of gastric emptying is 56 minutes which is within normal limits. NM/Gastric Emptying Study IMPRESSION: T1/2 of gastric emptying is 56 minutes which is within normal limits. Electronically Signed: Galdino Schulte MD at 14:34 EST , Service support ,
[2018-03-04 09:00] VITALS: BP 160/89; PULSE 101; RESP 16; TEMP 36.6; O2SAT 97
[2018-03-04] MEDS: proMETHazine 25 MG/ML Syringe 6.25 MG IV (10:20)
[2018-03-04 11:40] LABS: Bedside Glucose 90 mg/dL (70-110)
[2018-03-04 14:58] VITALS: BP 154/83; PULSE 87; RESP 16; TEMP 37; O2SAT 98
[2018-03-04 16:56] LABS: Bedside Glucose 118 mg/dL (70-110)
[2018-03-04 22:04] VITALS: BP 173/89; PULSE 103; RESP 16; TEMP 36.9; O2SAT 95
[2018-03-04] MEDS: Nortriptyline 10 MG Capsule 20 MG PO (22:31)
[2018-03-04] MEDS: Venlafaxine XR 150 MG Capsule PO (22:31)
[2018-03-04] MEDS: Ceftriaxone 1 GM/50 ML BAG IV (22:32)
[2018-03-04 22:41] LABS: Bedside Glucose 102 mg/dL (70-110)
[2018-03-05] VITALS (13 sets, daily range): BP systolic 132–193; BP diastolic 68–108; PULSE 82–102; RESP 16–18; TEMP 36.3–36.8; O2SAT 95–100
--- NOTE | 2018-03-05 00:48 | EKG12_ITS ---
Test Reason : PRE-OP Blood Pressure : / mmHG Vent. Rate : 101 BPM Atrial Rate : 101 BPM P-R Int : 196 ms QRS Dur : 092 ms QT Int : 370 ms P-R-T Axes : 047 002 069 degrees QTc Int : 479 ms Sinus tachycardia Anterior infarct , age undetermined Abnormal ECG When compared with ECG of 28-NOV-2017 12:51, Anterior infarct is now Present Nonspecific T wave abnormality no longer evident in Lateral leads Confirmed by FILI VINES, INOCENCIO ([id number]), scientific editor JACOBO GILLILAND ([id number]) on 03/07/2018 3:12:06 PM Referred By: DANYA Confirmed By:INOCENCIO PENN MD
[2018-03-05 06:12] LABS: Anion Gap 11 (5-15); BUN 36 mg/dL (7-18); BUN/Creat Ratio 9.4 RATIO (10-20); Calcium,Total 8.7 mg/dL (8.5-10.1); Chloride 117 mmol/L (98-107); Creatinine, Serum 3.85 mg/dL (0.55-1.02); EST Glomerular Filtration Rate 14 mL/min (>60); Est Glom Filt Rate - Afr Amer 16 mL/min (>60); Estimated Creatinine Clearance 15.06 ml/min; Glucose 93 mg/dL (74-106); Magnesium 1.5 mg/dL (1.6-2.6); Potassium 4.3 mmol/L (3.5-5.1); Sodium Level 142 mmol/L (136-145)
[2018-03-05 06:16] LABS: Hematocrit 24.4 % (37-47); Hemoglobin 8.2 g/dl (12.0-15.0); Mean Corp Hgb Conc 33.6 g/gl (32-36); Mean Corpuscular Hgb 24.9 pg (27.0-32.0); Mean Corpuscular Volume 74.2 fL (81-99); Mean Platelet Vol. 8.8 fl (6.2-12.0); Platelet Count 309 K/mm3 (150-450); RBC Distribution Width CV 14.2 % (11.6-14.6); RBC Distribution Width SD 36.9 fl (35.1-43.9); Red Blood Count 3.29 M/mm3 (4.2-5.4); White Blood Count 9.7 K/mm3 (4.4-11.0)
[2018-03-05] MEDS: Heparin Injection (Vial) 5,000 UNIT/ML VIAL 5000 UNIT SC ×2 (06:37→22:17)
[2018-03-05 06:46] LABS: Bedside Glucose 91 mg/dL (70-110)
[2018-03-05 07:15] LABS: Scan Indicated on CBC? Y/N YES- FLAGS NOTED
[2018-03-05 07:17] LABS: Differential Comment SCAN
[2018-03-05 08:36] LABS: Hemoglobin A1c 5.8 % (4.2-6.3)
--- NOTE | 2018-03-05 08:49 | PCM.PN.HOSP ---
Patient Problems: Active and Suspected Problems (Last Reviewed 02/28/18 @ 06:05 by Farhat Jin MD) Cystitis (Acute) Subjective: Patient seen still complains of some nausea but less intense compared to the day prior. She underwent a gastric emptying study on 03/04/2018 which was negative for gastroparesis. Patient is scheduled to undergo cystoscopy with possible bilateral ureteral stent placement Objective: GENERAL: cooperative HEENT: Atraumatic; moist oral mucosa EYES; Anicteric, Normal Conjunctiva NECK; supple, normal thyroid, no distended JVD. RESPIRATORY: Diminished to auscultation bilaterally, CARDIOVASCULAR: Regular S1 S2, no audible murmurs GI: soft, non-tender, normoactive bowel sounds, : No Renal angle tenderness; EXTREMITIES: No edema, no clubbing, no cyanosis. MUSCULOSKELETAL: No Joint Tenderness; no muscle waisting NEURO: Awake; no lateralizing signs. SKIN: No Rash PSYCH; Normal affect Vitals/I&O's: Vital Signs Temp Pulse Resp BP Pulse Ox 98.1 F 82 18 148/68 H 95 03/05/18 04:00 03/05/18 04:00 03/05/18 04:00 03/05/18 04:00 03/05/18 04:00 Oxygen Delivery Method Room Air Weight: 96.4 kg Body Mass Index (BMI) 38.8 Intake and Output for Last 24 Hours 03/03/18 03/04/18 03/05/18 23:59 23:59 23:59 Intake Total 3178 / 3178 2202.8 / 2202.8 0 / 0 Output Total 2700 / 2700 1450 / 1450 Balance 478 / 478 752.8 / 752.8 0 / 0 Laboratory Results 03/04/18 11:36: POC Glucose 90 03/04/18 16:52: POC Glucose 118 H 03/04/18 22:28: POC Glucose 102 03/05/18 05:06: Sodium 142, Potassium 4.3, Chloride 117 H, Carbon Dioxide 14.0 L, Anion Gap 11, BUN 36 H, Creatinine 3.85 H, Estim Creat Clear Calc 15.06, Est GFR (MDRD) Af Amer 16 L, Est GFR (MDRD) Non-Af 14 L, BUN/Creatinine Ratio 9.4 L, Glucose 93, Calcium 8.7, Magnesium 1.5 L 03/05/18 05:06: WBC 9.7, RBC 3.29 L, Hgb 8.2 L, Hct 24.4 L, MCV 74.2 L, MCH 24.9 L, MCHC 33.6, RDW 14.2, RDW Differential 36.9, Plt Count 309, MPV 8.8, Differential Comment SCAN 03/05/18 05:06: Hemoglobin A1c 5.8 03/05/18 06:36: POC Glucose 91 Current Medications Hydrocodone Bitart/Acetaminophen ([place] 5mg-325mg) 1 tablet PO Q6H PRN PRN PRN Reason: PAIN Last Admin: 03/01/18 23:41 Dose: 1 tablet Amlodipine Besylate (Norvasc) 5 mg PO DAILY [facility] Last Admin: 03/04/18 08:43 Dose: 5 mg Aspirin (Ecotrin) 81 mg PO DAILY@0800 [facility] Last Admin: 03/04/18 08:42 Dose: 81 mg Ergocalciferol (Vitamin D) 50,000 unit PO WE [facility] Ferrous Sulfate (Ferrous Sulfate) 325 mg PO TIDCM [facility] Last Admin: 03/04/18 16:59 Dose: 325 mg Heparin Sodium (Porcine) (Heparin Na) 5,000 unit SC Q8 [facility] Last Admin: 03/05/18 06:37 Dose: 5,000 unit Ceftriaxone Sodium (Rocephin) 1 gm in 50 mls @ 100 mls/hr IV Q24@2200 [facility] Last Admin: 03/04/18 22:32 Dose: 100 mls/hr Pantoprazole Sodium 40 mg/ (Sodium Chloride) 110 mls @ 330 mls/hr IV Q12 [facility] Last Admin: 03/04/18 22:31 Dose: 330 mls/hr Insulin Human Lispro (Humalog Kwikpen (Bkc)) 0 unit SC ACHS [facility]; Protocol Last Admin: 03/05/18 06:38 Dose: Not Given Lactic Acid (Lac-Hydrin, Amlactin) 1 applic TOPICAL BID [facility]; Protocol Last Admin: 03/04/18 22:31 Dose: 1 applicatio Lidocaine/Prilocaine (Emla Cream W/Tegaderm) 5 gm TOPICAL Q6H PRN; Protocol PRN Reason: PAIN Last Admin: 03/03/18 10:18 Dose: 1 applicatio Magnesium Hydroxide (Milk Of Magnesia) 30 ml PO DAILY PRN PRN PRN Reason: Constipation Menthol (Bengay Vanishing Scent) 1 applic TOPICAL TID PRN PRN PRN Reason: PAIN Metoprolol Tartrate (Lopressor (Beta Crystal)) 25 mg PO DAILY [facility] Last Admin: 03/04/18 08:43 Dose: 25 mg Morphine Sulfate () 1 mg IV Q4H PRN PRN PRN Reason: SEVERE PAIN (6-10/10) Last Admin: 02/28/18 08:22 Dose: 1 mg Nortriptyline HCl (Pamelor) 20 mg PO QHS [facility] Last Admin: 03/04/18 22:31 Dose: 20 mg Ondansetron HCl (Zofran) 4 mg IV Q8H PRN PRN PRN Reason: Nausea Last Admin: 03/04/18 17:00 Dose: 4 mg Promethazine HCl (Phenergan) 6.25 mg IV Q6H PRN PRN PRN Reason: NAUSEA/VOMITING Last Admin: 03/04/18 10:20 Dose: 6.25 mg Sodium Bicarbonate (Sodium Bicarbonate) 650 mg PO BID [facility] Last Admin: 03/04/18 22:32 Dose: Not Given Venlafaxine HCl (Effexor Xr) 150 mg PO QHS [facility] Last Admin: 03/04/18 22:31 Dose: 150 mg Medical Necessity - Tobacco Use Smoking Status: Never smoker Assessment/Plan All Active Problems (Last Reviewed 02/28/18 @ 06:05 by Farhat Jin MD) Cystitis (Acute) Problem with dialysis access (Acute) Gastroenteritis (Acute) Ureteral calculi (Acute) Metabolic acidosis (Acute) Acute kidney injury (Acute) Nausea and vomiting (Acute) Sepsis (Acute) UTI (urinary tract infection) (Acute) FRANSICO (acute kidney injury) (Acute) Patient is a 42-year-old lady with history of kidney stones and recurrent UTIs who presented with right flank pain as well as nausea and vomiting an initial assessment of suspected complicated UTI was made treated with Rocephin cultures came back positive for mixed organisms. 1. Suspected complicated UTI patient was managed with Rocephin urine cultures came back positive for mixed organisms 2. Persistent nausea vomiting felt to be secondary to gastroparesis from patient's underlying diabetes mellitus. Ordered gastric emptying studies to confirm the suspicion of gastroparesis on 03/04/2018 patient gastric emptying study was within normal limits 3. Obstructive uropathy; T of the abdomen obtained demonstrated Moderate hydronephrosis and moderate hydroureter bilaterally, chronic in appearance; Urinary bladder generalized mural thickening with mild over distention of the bladder in keeping with chronic urinary tract outlet obstruction; Left renal nonobstructing stone, unchanged. Patient seen in consultation by Juan; Cystogram performed on 03/03/2018 failed to demonstrate reflux. Patient is scheduled to undergo bilateral retrograde to rule out obstruction and possible stent placement by Dr. Martinez on 03/05/2018 4. Diabetes mellitus type 2 with complications including diabetic nephropathy; Patient on Accu-Cheks before meals and at bedtime with sliding scale coverage 5. CAD with remote stent placement 6. Depression patient is on Effexor 7. Chronic kidney disease stage V patient has been seen in the past by Dr. Odonnell 8. Anemia secondary to secondary to her underlying CKD monitoring H&H with plans to transfuse if patient becomes symptomatic or hemoglobin falls below 7 9. Hypertension-blood pressure controlled, home medications continued with dose adjustment as needed 10. Chronic back pain 11. Morbid obesity with BMI of 39 lifestyle modification including weight loss advised 12. DVT prophylaxis with subcu heparin Clinical Impression(s) from Imaging Studies Gastric Emptying Nuclear Medicine 03/04/18 08:55 IMPRESSION: T1/2 of gastric emptying is 56 minutes which is within normal limits. Electronically Signed: Galdino Schulte MD at 14:34 EST , Service support , Code Visit Inpatient E&M: 12013 Subs Hosp L2
--- NOTE | 2018-03-05 08:53 | PN_ITS ---
Patient Problems: Active and Suspected Problems (Last Reviewed 02/28/18 @ 06:05 by Farhat Jin MD) Cystitis (Acute) Subjective: Patient seen still complains of some nausea but less intense compared to the day prior. She underwent a gastric emptying study on 03/04/2018 which was negative for gastroparesis. Patient is scheduled to undergo cystoscopy with possible bilateral ureteral stent placement Objective: GENERAL: cooperative HEENT: Atraumatic; moist oral mucosa EYES; Anicteric, Normal Conjunctiva NECK; supple, normal thyroid, no distended JVD. RESPIRATORY: Diminished to auscultation bilaterally, CARDIOVASCULAR: Regular S1 S2, no audible murmurs GI: soft, non-tender, normoactive bowel sounds, : No Renal angle tenderness; EXTREMITIES: No edema, no clubbing, no cyanosis. MUSCULOSKELETAL: No Joint Tenderness; no muscle waisting NEURO: Awake; no lateralizing signs. SKIN: No Rash PSYCH; Normal affect Vitals/I&O's: Vital Signs Temp Pulse Resp BP Pulse Ox 98.1 F 82 18 148/68 H 95 03/05/18 04:00 03/05/18 04:00 03/05/18 04:00 03/05/18 04:00 03/05/18 04:00 Oxygen Delivery Method Room Air Weight: 96.4 kg Body Mass Index (BMI) 38.8 Intake and Output for Last 24 Hours 03/03/18 03/04/18 03/05/18 23:59 23:59 23:59 Intake Total 3178 / 3178 2202.8 / 2202.8 0 / 0 Output Total 2700 / 2700 1450 / 1450 Balance 478 / 478 752.8 / 752.8 0 / 0 Laboratory Results 03/04/18 11:36: POC Glucose 90 03/04/18 16:52: POC Glucose 118 H 03/04/18 22:28: POC Glucose 102 03/05/18 05:06: Sodium 142, Potassium 4.3, Chloride 117 H, Carbon Dioxide 14.0 L , Anion Gap 11, BUN 36 H, Creatinine 3.85 H, Estim Creat Clear Calc 15.06, Est GFR (MDRD) Af Amer 16 L, Est GFR (MDRD) Non-Af 14 L, BUN/Creatinine Ratio 9.4 L, Glucose 93, Calcium 8.7, Magnesium 1.5 L 03/05/18 05:06: WBC 9.7, RBC 3.29 L, Hgb 8.2 L, Hct 24.4 L, MCV 74.2 L, MCH 24.9 L, MCHC 33.6, RDW 14.2, RDW Differential 36.9, Plt Count 309, MPV 8.8, Differential Comment SCAN 03/05/18 05:06: Hemoglobin A1c 5.8 03/05/18 06:36: POC Glucose 91 Current Medications Hydrocodone Bitart/Acetaminophen ([place] 5mg-325mg) 1 tablet PO Q6H PRN PRN PRN Reason: PAIN Last Admin: 03/01/18 23:41 Dose: 1 tablet Amlodipine Besylate (Norvasc) 5 mg PO DAILY [facility] Last Admin: 03/04/18 08:43 Dose: 5 mg Aspirin (Ecotrin) 81 mg PO DAILY@0800 [facility] Last Admin: 03/04/18 08:42 Dose: 81 mg Ergocalciferol (Vitamin D) 50,000 unit PO WE [facility] Ferrous Sulfate (Ferrous Sulfate) 325 mg PO TIDCM [facility] Last Admin: 03/04/18 16:59 Dose: 325 mg Heparin Sodium (Porcine) (Heparin Na) 5,000 unit SC Q8 [facility] Last Admin: 03/05/18 06:37 Dose: 5,000 unit Ceftriaxone Sodium (Rocephin) 1 gm in 50 mls @ 100 mls/hr IV Q24@2200 [facility] Last Admin: 03/04/18 22:32 Dose: 100 mls/hr Pantoprazole Sodium 40 mg/ (Sodium Chloride) 110 mls @ 330 mls/hr IV Q12 [facility] Last Admin: 03/04/18 22:31 Dose: 330 mls/hr Insulin Human Lispro (Humalog Kwikpen (Bkc)) 0 unit SC ACHS [facility]; Protocol Last Admin: 03/05/18 06:38 Dose: Not Given Lactic Acid (Lac-Hydrin, Amlactin) 1 applic TOPICAL BID [facility]; Protocol Last Admin: 03/04/18 22:31 Dose: 1 applicatio Lidocaine/Prilocaine (Emla Cream W/Tegaderm) 5 gm TOPICAL Q6H PRN; Protocol PRN Reason: PAIN Last Admin: 03/03/18 10:18 Dose: 1 applicatio Magnesium Hydroxide (Milk Of Magnesia) 30 ml PO DAILY PRN PRN PRN Reason: Constipation Menthol (Bengay Vanishing Scent) 1 applic TOPICAL TID PRN PRN PRN Reason: PAIN Metoprolol Tartrate (Lopressor (Beta Crystal)) 25 mg PO DAILY [facility] Last Admin: 03/04/18 08:43 Dose: 25 mg Morphine Sulfate () 1 mg IV Q4H PRN PRN PRN Reason: SEVERE PAIN (6-10/10) Last Admin: 02/28/18 08:22 Dose: 1 mg Nortriptyline HCl (Pamelor) 20 mg PO QHS [facility] Last Admin: 03/04/18 22:31 Dose: 20 mg Ondansetron HCl (Zofran) 4 mg IV Q8H PRN PRN PRN Reason: Nausea Last Admin: 03/04/18 17:00 Dose: 4 mg Promethazine HCl (Phenergan) 6.25 mg IV Q6H PRN PRN PRN Reason: NAUSEA/VOMITING Last Admin: 03/04/18 10:20 Dose: 6.25 mg Sodium Bicarbonate (Sodium Bicarbonate) 650 mg PO BID [facility] Last Admin: 03/04/18 22:32 Dose: Not Given Venlafaxine HCl (Effexor Xr) 150 mg PO QHS [facility] Last Admin: 03/04/18 22:31 Dose: 150 mg Medical Necessity - Tobacco Use Smoking Status: Never smoker Assessment/Plan All Active Problems (Last Reviewed 02/28/18 @ 06:05 by Farhat Jin MD) Cystitis (Acute) Problem with dialysis access (Acute) Gastroenteritis (Acute) Ureteral calculi (Acute) Metabolic acidosis (Acute) Acute kidney injury (Acute) Nausea and vomiting (Acute) Sepsis (Acute) UTI (urinary tract infection) (Acute) FRANSICO (acute kidney injury) (Acute) Patient is a 42-year-old lady with history of kidney stones and recurrent UTIs who presented with right flank pain as well as nausea and vomiting an initial assessment of suspected complicated UTI was made treated with Rocephin cultures came back positive for mixed organisms. 1. Suspected complicated UTI patient was managed with Rocephin urine cultures came back positive for mixed organisms 2. Persistent nausea vomiting felt to be secondary to gastroparesis from patient's underlying diabetes mellitus. Ordered gastric emptying studies to confirm the suspicion of gastroparesis on 03/04/2018 patient gastric emptying study was within normal limits 3. Obstructive uropathy; T of the abdomen obtained demonstrated Moderate hydronephrosis and moderate hydroureter bilaterally, chronic in appearance; Urinary bladder generalized mural thickening with mild over distention of the bladder in keeping with chronic urinary tract outlet obstruction; Left renal nonobstructing stone, unchanged. Patient seen in consultation by Juan; Cystogram performed on 03/03/2018 failed to demonstrate reflux. Patient is scheduled to undergo bilateral retrograde to rule out obstruction and possible stent placement by Dr. Martinez on 03/05/2018 4. Diabetes mellitus type 2 with complications including diabetic nephropathy; Patient on Accu-Cheks before meals and at bedtime with sliding scale coverage 5. CAD with remote stent placement 6. Depression patient is on Effexor 7. Chronic kidney disease stage V patient has been seen in the past by Dr. Odonnell 8. Anemia secondary to secondary to her underlying CKD monitoring H&H with plans to transfuse if patient becomes symptomatic or hemoglobin falls below 7 9. Hypertension-blood pressure controlled, home medications continued with dose adjustment as needed 10. Chronic back pain 11. Morbid obesity with BMI of 39 lifestyle modification including weight loss advised 12. DVT prophylaxis with subcu heparin Clinical Impression(s) from Imaging Studies Gastric Emptying Nuclear Medicine 03/04/18 08:55 IMPRESSION: T1/2 of gastric emptying is 56 minutes which is within normal limits. Electronically Signed: Galdino Schulte MD at 14:34 EST , Service support , Code Visit Inpatient E&M: 33572 Subs Hosp L2
[2018-03-05] MEDS: Metoprolol Tartrate 25 MG Tablet PO (09:33)
[2018-03-05] MEDS: amLODIPine 5 MG Tablet PO (09:33)
[2018-03-05] MEDS: Ondansetron 4 MG/2 ML Vial IV (09:43)
--- NOTE | 2018-03-05 12:25 | NURSING ---
Report called to AC at this time.
--- NOTE | 2018-03-05 12:30 | NURSING ---
Pt transported to surgery at this time.
[2018-03-05 13:34] LABS: Pregnancy, Serum, hCG Quali. NEGATIVE Negative (0-9 Nonpreg)
--- NOTE | 2018-03-05 14:12 | PCM.OPRPT ---
Report of Operation Date of Procedure: 03/05/18 Pre-Operative Diagnosis: Neurogenic bladder and bilateral hydronephrosis and retention of urine Post-Operative Diagnosis: Same Surgery/Procedure Performed:: Cystoscopy and bilateral retrograde pyelograms Description of Surgical Findings:: 42-year-old female who presented to the hospital again I seen her in the past she has a neurogenic bladder with poor emptying bilateral hydronephrosis with a distended bladder and reflux she also has history kidney stones. She has been seen by me and also she has been seen by the [facility] both of us is recommended self intermittent catheterization the patient is failed to follow-up with the recommendation and her creatinine is elevated at 4.2. She understands that she failed to follow-up with this recommendations she will probably end up on dialysis. Her family and the patient is aware of this. Comes back to the hospital with a UTI, she has distended bladder and bilateral hydronephrosis. We did a cystogram which failed to demonstrate reflux hydronephrosis so today were going to bring her to the operating room for cystoscopy evaluate the bladder and do retrograde pyelograms to evaluate the ureters make sure there is no obstruction. 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 Retrogrades were performed she does not have any obstruction or cause of her hydronephrosis is distended bladder with with the bladder with urine backing up she needs to catheterize her bladder 3 times a day to keep her bladder empty to drain her kidneys this will be explained to the patient and the family again and she will follow-up in my office for more further teaching on self intermittent catheterization. Type of Anesthesia:: General Drains: none - Admit VTE Documentation VTE Present on Admission: No VTE Mechan Device Prophylaxis: SCD's
--- NOTE | 2018-03-05 14:34 | EKG12_ITS ---
Test Reason : Blood Pressure : / mmHG Vent. Rate : 084 BPM Atrial Rate : 084 BPM P-R Int : 150 ms QRS Dur : 094 ms QT Int : 382 ms P-R-T Axes : 035 001 078 degrees QTc Int : 451 ms Normal sinus rhythm Normal ECG When compared with ECG of 05-MAR-2018 05:35, MANUAL COMPARISON REQUIRED, DATA IS UNCONFIRMED Confirmed by FILI VINES, INOCENCIO ([id number]), web editor JACOBO GILLILAND ([id number]) on 03/07/2018 3:19:18 PM Referred By: ARNALDO Confirmed By:INOCENCIO PENN MD
[2018-03-05 14:50] LABS: Bedside Glucose 98 mg/dL (70-110)
--- NOTE | 2018-03-05 15:48 | SUR.PHASEI ---
Nitropaste patch removed at 1547. BP at 1552 is 145/80
[2018-03-05] MEDS: Morphine 2 MG/ML Syringe 1 MG IV (16:31)
[2018-03-05 16:56] LABS: Bedside Glucose 95 mg/dL (70-110)
[2018-03-05] MEDS: Ferrous Sulfate 325 MG Tablet PO (18:16)
[2018-03-05] MEDS: Nortriptyline 10 MG Capsule 20 MG PO (22:12)
[2018-03-05] MEDS: Venlafaxine XR 150 MG Capsule PO (22:13)
[2018-03-05] MEDS: Ceftriaxone 1 GM/50 ML BAG IV (22:17)
[2018-03-05] MEDS: Ammonium Lactate 225 gm Bottle 1 APPLIC TOPICAL (22:18)
[2018-03-05] MEDS: HYDROcodone Bitartrate/Apap 5/325 Tablet PO (22:35)
[2018-03-05 23:15] LABS: Bedside Glucose 105 mg/dL (70-110)
[2018-03-06 04:32] VITALS: BP 151/89; PULSE 86; RESP 16; TEMP 36.6; O2SAT 97
[2018-03-06 05:53] LABS: Hematocrit 23.9 % (37-47); Mean Corp Hgb Conc 33.5 g/gl (32-36); Mean Corpuscular Hgb 24.7 pg (27.0-32.0); Mean Corpuscular Volume 73.8 fL (81-99); Mean Platelet Vol. 8.7 fl (6.2-12.0); Platelet Count 272 K/mm3 (150-450); RBC Distribution Width SD 36.6 fl (35.1-43.9); Red Blood Count 3.24 M/mm3 (4.2-5.4); White Blood Count 7.2 K/mm3 (4.4-11.0)
[2018-03-06 05:56] LABS: Scan Indicated on CBC? Y/N YES- FLAGS NOTED
[2018-03-06 06:08] LABS: Anion Gap 9 (5-15); BUN 33 mg/dL (7-18); BUN/Creat Ratio 8.5 RATIO (10-20); Calcium,Total 8.4 mg/dL (8.5-10.1); Chloride 115 mmol/L (98-107); Creatinine, Serum 3.89 mg/dL (0.55-1.02); EST Glomerular Filtration Rate 13 mL/min (>60); Est Glom Filt Rate - Afr Amer 16 mL/min (>60); Glucose 81 mg/dL (74-106); Sodium Level 141 mmol/L (136-145)
[2018-03-06] MEDS: Heparin Injection (Vial) 5,000 UNIT/ML VIAL 5000 UNIT SC (06:29)
[2018-03-06 06:33] LABS: Differential Comment SCAN
[2018-03-06 06:36] LABS: Bedside Glucose 75 mg/dL (70-110)
[2018-03-06] MEDS: Ferrous Sulfate 325 MG Tablet PO ×2 (08:09→12:03)
[2018-03-06] MEDS: Aspirin E.C. 81 MG Tablet PO (08:09)
[2018-03-06 08:29] VITALS: BP 146/80; PULSE 90; RESP 16; TEMP 36.3; O2SAT 95
[2018-03-06 08:38] VITALS: PULSE 90
--- NOTE | 2018-03-06 09:46 | PCM.DC.SUM ---
Discharge Date and Diagnosis - Problem List Patient Problems: Active and Suspected Problems (Last Reviewed 02/28/18 @ 06:05 by Farhat Jin MD) Cystitis (Acute) Date of Admission: 02/28/18 Date of Discharge: 03/06/18 - Primary Discharge Diagnosis Active and Suspected Problems (Last Reviewed 02/28/18 @ 06:05 by Farhat Jin MD) Cystitis (Acute) - Secondary Discharge Diagnosis Chronic Problems (Last Reviewed 02/28/18 @ 06:05 by Farhat Jin MD) Chronic renal failure, stage 4 (severe) (Chronic) Morbid obesity (Chronic) HTN (hypertension) (Chronic) Bilateral hydronephrosis (Chronic) Iron deficiency anemia (Chronic) Type II diabetes mellitus (Chronic) Coronary artery disease (Chronic) Chronic low back pain (Chronic) Hydroureter (Chronic) Hydronephrosis (Chronic) Bladder outlet obstruction (Chronic) Hospital Course and Treatment Imaging Results: Clinical Impression(s) from Imaging Studies Abdomen/Pelvis CT 02/27/18 23:40 IMPRESSION: 1. Moderate hydronephrosis and moderate hydroureter bilaterally, chronic in appearance. 2. Urinary bladder generalized mural thickening with mild over distention of the bladder in keeping with chronic urinary tract outlet obstruction. 3. Left renal nonobstructing stone, unchanged. 4. Borderline retroperitoneal lymphadenopathy, unchanged. Consider PET CT evaluation. Individualized dose optimization techniques were used for this CT. at 0116 Reported and signed by: Con Angeles MD Electronically Signed: Con Angeles, at 1:14 EST Tel , Service support , Voiding Cystogram X-Ray 03/03/18 10:45 IMPRESSION: Findings suggestive of 3 small trabeculations on the right side of the bladder and a single trabeculation along the left side of the bladder. Electronically Signed: Donald Pride MD at 13:31 EST Tel [phone], Service support , Gastric Emptying Nuclear Medicine 03/04/18 08:55 IMPRESSION: T1/2 of gastric emptying is 56 minutes which is within normal limits. Electronically Signed: Galdino Schulte MD at 14:34 EST , Service support , Summary of Care Provided: Patient is a 42-year-old lady with history of kidney stones and recurrent UTIs who presented with right flank pain as well as nausea and vomiting an initial assessment of suspected complicated UTI was made treated with Rocephin cultures came back positive for mixed organisms. 1. Suspected complicated UTI patient was managed with Rocephin urine cultures came back positive for mixed organisms 2. Persistent nausea vomiting felt to be secondary to gastroparesis from patient's underlying diabetes mellitus. Ordered gastric emptying studies to confirm the suspicion of gastroparesis on 03/04/2018 patient gastric emptying study was within normal limits 3. Obstructive uropathy; CT of the abdomen obtained demonstrated Moderate hydronephrosis and moderate hydroureter bilaterally, chronic in appearance; Urinary bladder generalized mural thickening with mild over distention of the bladder in keeping with chronic urinary tract outlet obstruction; Left renal nonobstructing stone, unchanged. Patient seen in consultation by Juan; Cystogram performed on 03/03/2018 failed to demonstrate reflux. Patient is scheduled to undergo bilateral retrograde to rule out obstruction and possible stent placement by Dr. Martinez on 03/05/2018. Patient underwent procedure on 03/05/2018 without any evidence of obstruction. No stents were therefore placed. Patient was once again instructed to self catheterize at home descriptions were written for 14 and 16 Sinhala female catheter is on discharge 4. Diabetes mellitus type 2 with complications including diabetic nephropathy; Patient on Accu-Cheks before meals and at bedtime with sliding scale coverage 5. CAD with remote stent placement 6. Depression patient is on Effexor 7. Chronic kidney disease stage V patient has been seen in the past by Dr. Odonnell 8. Anemia secondary to secondary to her underlying CKD monitoring H&H with plans to transfuse if patient becomes symptomatic or hemoglobin falls below 7 9. Hypertension-blood pressure controlled, home medications continued with dose adjustment as needed 10. Chronic back pain 11. Morbid obesity with BMI of 39 lifestyle modification including weight loss advised 12. DVT prophylaxis with subcu heparin Patient Problems: Active and Suspected Problems (Last Reviewed 02/28/18 @ 06:05 by Farhat Jin MD) Cystitis (Acute) - Physical Exam General: Oriented x3 HEENT: Atraumatic Neck: Supple Lungs: Normal air movement Cardiovascular: Regular rate, Regular Rhythm Neurological: Neuro grossly intact Psych/Mental Status: Normal Affect Vital Signs Temp Pulse Resp BP Pulse Ox 97.3 F L 90 16 146/80 H 97 03/06/18 08:29 03/06/18 08:38 03/06/18 08:29 03/06/18 08:29 03/06/18 04:32 Oxygen Flow Rate (L/min) 2 Oxygen Delivery Method Room Air Weight: 96.4 kg Body Mass Index (BMI) 38.8 Finger Stick Blood Glucose 98 Intake and Output for Last 24 Hours 03/04/18 03/05/18 03/06/18 23:59 23:59 23:59 Intake Total 2202.8 / 2202.8 1200 / 1200 2019 Output Total 1450 / 1450 700 / 700 Balance 752.8 / 752.8 500 / 500 2019 Laboratory Tests Past 24 Hrs 03/05/18 03/05/18 03/06/18 05:06 14:50 05:10 WBC 7.2 RBC 3.24 L Hgb 8.0 L Hct 23.9 L MCV 73.8 L MCH 24.7 L MCHC 33.5 RDW 14.0 RDW Differential 36.6 Plt Count 272 MPV 8.7 Differential Comment SCAN Sodium Potassium Chloride Carbon Dioxide Anion Gap BUN Creatinine Estim Creat Clear Calc Est GFR (MDRD) Af Amer Est GFR (MDRD) Non-Af BUN/Creatinine Ratio Glucose Calcium Troponin I 0.118 H Serum , Qual NEGATIVE 03/06/18 05:10 WBC RBC Hgb Hct MCV MCH MCHC RDW RDW Differential Plt Count MPV Differential Comment Sodium 141 Potassium 4.0 Chloride 115 H Carbon Dioxide 17.0 L Anion Gap 9 BUN 33 H Creatinine 3.89 H Estim Creat Clear Calc 14.90 Est GFR (MDRD) Af Amer 16 L Est GFR (MDRD) Non-Af 13 L BUN/Creatinine Ratio 8.5 L Glucose 81 Calcium 8.4 L Troponin I Serum , Qual POC Glucose 03/06/18 03/05/18 03/05/18 06:27 22:12 14:40 POC Glucose 75 105 98 03/05/18 11:46 POC Glucose 95 Discharge Diet: 1800 Calorie Control Diet Discharge Activity: Return to Normal Activity, May not drive while taking narcotic pain medications. Home Medications: Medications to take at Discharge Ergocalciferol [Vitamin D] 50,000 unit PO WE 04/18/17 Insulin Glargine,Hum.rec.anlog [Basaglar Kwikpen U-100] 25 unit SQ QHS 04/18/17 Amlodipine [Norvasc] 5 mg PO DAILY #30 tab 07/09/17 Aspirin E.C. [Ecotrin] 81 mg PO DAILY@0800 #30 tab 07/09/17 Ondansetron HCl [Zofran] 4 mg PO Q6H PRN #30 tab 07/09/17 Metoprolol Tartrate [Lopressor (beta hellen)] 25 mg PO DAILY 07/31/17 Potassium Citrate [Potassium Citrate ER] 10 meq PO TID 07/31/17 FreeStyle [place] 10 Day Sensor kit See Dose Instructions .ROUTE .MEDSUPPLY #3 ea NS 11/06/17 flash glucose scanning reader See Dose Instructions .ROUTE .MEDSUPPLY #1 ea 11/06/17 nortriptyline 10 mg capsule 20 mg PO QHS 11/14/17 Famotidine [Pepcid] 20 mg PO BID 11/27/17 Ferrous Sulfate 325 mg PO TID 11/27/17 Docusate Sodium [Colace] 100 mg PO DAILY PRN PRN 02/28/18 Hydrocodone/Acetaminophen [[place] 5-325 Tablet] 1 each PO Q6H PRN PRN 02/28/18 Sodium Bicarbonate 325 mg PO BID 02/28/18 Venlafaxine XR [Effexor Xr] 150 mg PO DAILY 02/28/18 Primary Care Physician: Melvi Eastman MD [Primary Care Provider] - Please follow up with your Primary Care Physician in: in 5-7 days Please Follow Up With: Charan Martinez MD When: in 1-2 weeks Disposition: Home Minutes spent on discharge:: 35 Patient Condition:: Stable Medical Necessity - Tobacco Use Smoking Status: Never smoker Meaningful Use Info Meaningful Use Diagnoses (Choose all that apply): None applicable Code Visit Inpatient E&M: 14639 Disch Hosp
--- NOTE | 2018-03-06 09:50 | DCINST_ITS ---
- Discharge Diagnoses Current Active Problems: Current Active and Chronic Problems (Last Reviewed 02/28/18 @ 06:05 by Farhat Jin MD) Cystitis (Acute) You will use the following diet at home:: Calorie/Carbohydrate Controlled (specify 1200, 1400, etc) - 1800 Your food should be the consistency of: Regular Discharge Activity: Return to Normal Activity, May not drive while taking narcotic pain medications. Allergies/Adverse Reactions: Allergies ciprofloxacin [From Cipro] Adverse Reaction (Verified 02/27/18 22:39) Vomiting contrast dye Allergy (Severe, Uncoded 02/27/18 22:39) Anaphylaxis Medications to take at Discharge Ergocalciferol [Vitamin D] 50,000 unit PO WE 04/18/17 Insulin Glargine,Hum.rec.anlog [Basaglar Kwikpen U-100] 25 unit SQ QHS 04/18/17 Amlodipine [Norvasc] 5 mg PO DAILY #30 tab 07/09/17 Aspirin E.C. [Ecotrin] 81 mg PO DAILY@0800 #30 tab 07/09/17 Ondansetron HCl [Zofran] 4 mg PO Q6H PRN #30 tab 07/09/17 Metoprolol Tartrate [Lopressor (beta hellen)] 25 mg PO DAILY 07/31/17 Potassium Citrate [Potassium Citrate ER] 10 meq PO TID 07/31/17 FreeStyle [place] 10 Day Sensor kit See Dose Instructions .ROUTE .MEDSUPPLY #3 ea NS 11/06/17 flash glucose scanning reader See Dose Instructions .ROUTE .MEDSUPPLY #1 ea 11/06/17 nortriptyline 10 mg capsule 20 mg PO QHS 11/14/17 Famotidine [Pepcid] 20 mg PO BID 11/27/17 Ferrous Sulfate 325 mg PO TID 11/27/17 Docusate Sodium [Colace] 100 mg PO DAILY PRN PRN 02/28/18 Hydrocodone/Acetaminophen [[place] 5-325 Tablet] 1 each PO Q6H PRN PRN 02/28/18 Sodium Bicarbonate 325 mg PO BID 02/28/18 Venlafaxine XR [Effexor Xr] 150 mg PO DAILY 02/28/18 Primary Care Physician: Melvi Eastman MD [Primary Care Provider] - Please follow up with your Primary Care Physician in: in 5-7 days Test Results: Test results from this visit will be discussed in further detail at your follow- up appointment, if applicable. Please Follow Up With: Charan Martinez MD When: in 1-2 weeks Proposed Discharge Date: 03/06/18
[2018-03-06 10:16] VITALS: BP 146/80; PULSE 90
[2018-03-06] MEDS: Metoprolol Tartrate 25 MG Tablet PO (10:16)
[2018-03-06] MEDS: amLODIPine 5 MG Tablet PO (10:16)
[2018-03-06] MEDS: Ammonium Lactate 225 gm Bottle 1 APPLIC TOPICAL (10:21)
[2018-03-06] MEDS: Sodium Bicarbonate 650 MG Tablet PO (10:23)
[2018-03-06 10:46] LABS: Bedside Glucose 77 mg/dL (70-110)
[2018-03-06 14:02] VITALS: BP 149/87; PULSE 88; RESP 16; TEMP 36.3; O2SAT 96
[2018-03-06 14:32] VITALS: PULSE 88
--- NOTE | 2018-03-07 16:21 | CASEMGMT ---
RN CM Discharge Follow-Up Phone Call. LACE: 12 Strata: 4 Discharge Date: 03-06-18 Adm Dx: Probable Cystitis. Attempted discharge follow-up phone call. No answer. Message left for pt to return all to CM if she would have any questions about discharge instructions, medications, or any other concerns or needs. Provided pt with this RN CM number as well as CM office number. Rose GERMAINN JULITO CM
== END 2018-03-06 15:23 | disposition home or self-care (01) | DRG 463 ==
LOC: ED 22:59 → MS3 02-28 03:07
PROVIDERS: Anesthesiology; Internal Medicine; Urology; Admitting Provider Hospitalist; Emergency Provider Emergency Medicine; Family Provider Internal Medicine; PCP Internal Medicine; Visit Provider Internal Medicine
PROC: BT141ZZ Fluoroscopy of Kidneys, Ureters and Bladder using Low Osmolar Contrast (ICD-10-PCS; CPT 74450; principal; 2018-03-05 13:15)
DX: N30.90 Cystitis, unspecified without hematuria (principal); I12.0 Hypertensive chronic kidney disease with stage 5 chronic kidney disease or end stage renal disease; E11.43 Type 2 diabetes mellitus with diabetic autonomic (poly)neuropathy; E11.22 Type 2 diabetes mellitus with diabetic chronic kidney disease; E87.2 Acidosis; I25.10 Atherosclerotic heart disease of native coronary artery without angina pectoris; D63.1 Anemia in chronic kidney disease; E11.649 Type 2 diabetes mellitus with hypoglycemia without coma; E66.01 Morbid (severe) obesity due to excess calories; N20.0 Calculus of kidney; K31.84 Gastroparesis; Z87.442 Personal history of urinary calculi; N31.9 Neuromuscular dysfunction of bladder, unspecified; F32.9 Major depressive disorder, single episode, unspecified; N18.5 Chronic kidney disease, stage 5; G89.29 Other chronic pain; M54.9 Dorsalgia, unspecified; Z95.5 Presence of coronary angioplasty implant and graft; N13.30 Unspecified hydronephrosis; Z68.39 Body mass index [BMI] 39.0-39.9, adult; Z79.84 Long term (current) use of oral hypoglycemic drugs
CPT/HCPCS: 36415; 51600; 74176; 74455; 76000; 78264; 80048; 80053; 80069; 81001; 82962; 83036; 83690; 83735; 84484; 84703; 85025; 85027; 87086; 87088; 93005; 97110; 97116; 97162; 97166; 97530; 97802; 97803; 99282; A9541; J7030; J7040; Q9965; A4216; C1769; J2405

== ENCOUNTER 2018-03-20 22:32 | Emergency (ER) | payer MEDICAID, SELFPAY ==
[2018-02-28 03:39] VITALS: BMI 38.8
[2018-03-20 22:33] VITALS: BP 188/102; PULSE 114; RESP 16; TEMP 36.9; O2SAT 99; BMI 39.3
[2018-03-20 22:53] VITALS: BP 180/90; PULSE 114; RESP 16; TEMP 36.7; O2SAT 99
--- NOTE | 2018-03-20 22:59 | ED.DCSUM_ITS ---
- ER Visit Summary Date of Service: 03/20/18 Chief Complaint: Right-sided abdominal and flank pain that started today History of Present Illness: The patient is a 42 F with multiple medical problems including bilateral hydronephrosis secondary to outlet obstruction who has recently been seen at the [facility] for catheter training. She noted change in color of urine starting Saturday. She complains of chills with no fever. She does have history of right renal calculus. She does report nausea without vomiting. Denies diarrhea, constipation, melena, maroon or bloody stool. She states it hurts when she inserts the Ross. She does have history of urinary tract infection. She also reports generalized weakness. Review of systems otherwise unremarkable. Past medical history coronary disease status post cardiac catheterization (angioplasty and stent placement), type 2 diabetes, hypertension, end-stage renal disease, bilateral hydronephrosis secondary to outlet obstruction, iron deficiency anemia. There is history of anxiety and depression. Surgical history is remarkable for carpal tunnel and fistula/venous access for dialysis Physical Examination: Vital signs remarkable for blood pressure 188/102 and heart rate 114. She is not febrile nor she hypoxic. Urine appears turbid and has appearance of lemonade. Head is atraumatic normocephalic. Pupils are equal round reactive. Extraocular muscles are intact. TMs are pearly white with landmarks noted. Nares patent with no drainage. Posterior pharynx without erythema or exudate. Uvula is midline. There is no dysphonia or dysphasia. Trachea is midline. There is no stridor with auscultation of the neck. Heart is regular without murmur, gallop or rub. S1 and S2 are normal. Lungs are clear to auscultation with good movement of air bilaterally. Abdomen is remarkable tenderness over the right mid abdomen without guarding or rebound tenderness. There is right CVA tenderness. Neuro exam is nonfocal. Test Results: White count 11.3 thousand. H&H 8.1 and 24.6, which is baseline. BUN and 51 creatinine 4.01, which is baseline. Urine is suggestive/consistent with urinary tract infection with greater than 100 WBCs and rare bacteria. Epithelial cells 0 Emergency Department Course and Treatment: IV was established. Urinalysis, CBC, BMP were obtained. She was medicated with 4 mg of Zofran and 4 mg of morphine for her nausea and pain. She does not treated with Toradol because of end-stage renal disease, diabetes and hypertension. Treatment Plan: 1 g of Rocephin IV piggyback, urine culture and 7-day course of Bactrim. Disposition: Discharge to home Impression: 1. Urinary tract infection 2. Microcytic anemia 3. End-stage renal disease 4. Type 2 diabetes 5. History of hypertension 6. History coronary disease status post angioplasty and stent This note was generated with CoPromote dictation software. It may contain incorrect words, spelling, and punctuation that were not noted in review of the chart prior to signing ED Disposition - Plan for ED Patient: Disposition: Home or Assisted Living Chief Complaint: Flank Pain Instructions: ED UTI Cystitis Female Prescriptions: Smz/Tmp Ds [Bactrim Ds] 1 tablet PO BID #14 tablet Phenazopyridine HCl [Pyridium] 200 mg PO TID #10 tablet Referrals: Melvi Eastman MD [Primary Care Provider] - 3-5 Days Additional Instructions: Your prescription was electronically transmitted to pharmacy of choice, [facility]
[2018-03-20 23:02] LABS: Bacteria 0 SEEN /hpf (None Seen); Mucous, Urine 0 SEEN /hpf (<or=2+); Red Blood Cells-Urine 0 SEEN /hpf (0-5)
[2018-03-20] MEDS: Ondansetron 4 MG/2 ML Vial IV (23:02)
[2018-03-20] MEDS: 0.9% Normal Saline 1,000 ML 250 ML IV (23:02)
[2018-03-20] MEDS: Morphine 4 MG/ML Syringe IV (23:02)
[2018-03-20 23:10] LABS: Color, Urine Yellow (Yellow); Glucose, Dipstick Normal (Normal); Ketone-Dipstick Negative (Negative); Leukocyte Esterase-Dipstick 25 /ul (Negative); Nitrite-Dipstick Negative (Negative); Occult Blood-Urine Negative /ul (Negative); Protein-Dipstick 15 mg/dl (Negative); Specific Gravity, Urine 1.015 (1.002-1.030); Urine Bilirubin Dipstick Negative (Negative); Urine Clarity Cloudy (Clear); Urine Urobilinogen Normal (Normal); Urine pH 6.5 (5.0 - 8.0)
[2018-03-20 23:18] LABS: Squamous Epithelial Cells - UA 0-5 SEEN /hpf (5-10)
[2018-03-20 23:19] LABS: White Blood Cells >100 SEEN /hpf (0-5)
[2018-03-20 23:22] LABS: Anion Gap 12 (5-15); BUN 51 mg/dL (7-18); BUN/Creat Ratio 12.7 RATIO (10-20); Calcium,Total 8.6 mg/dL (8.5-10.1); Chloride 107 mmol/L (98-107); Creatinine, Serum 4.01 mg/dL (0.55-1.02); EST Glomerular Filtration Rate 13 mL/min (>60); Est Glom Filt Rate - Afr Amer 16 mL/min (>60); Estimated Creatinine Clearance 14.45 ml/min; Glucose 123 mg/dL (74-106); Potassium 4.4 mmol/L (3.5-5.1); Sodium Level 136 mmol/L (136-145)
[2018-03-20 23:34] LABS: Absolute Lymphocyte Count 1.07 X10^3/ul (0.83-4.51); Absolute Neutrophil Count 9.2 X10^3/uL (2.0-7.7); Basophil# 0.03 X10^3/uL; Basophil% 0.3 % (0-1); Eosinophil# 0.17 X10^3/uL; Eosinophils% 1.5 % (0-5); Hematocrit 24.6 % (37-47); Hemoglobin 8.1 g/dl (12.0-15.0); Lymphocyte # 1.07 X10^3/ul (4.0); Lymphocyte % 9.5 % (19-41); Mean Corp Hgb Conc 32.9 g/gl (32-36); Mean Corpuscular Hgb 24.2 pg (27.0-32.0); Mean Corpuscular Volume 73.4 fL (81-99); Mean Platelet Vol. 8.7 fl (6.2-12.0); Monocyte# 0.84 X10^3/uL; Monocyte% 7.4 % (0-10); Neutrophil # 9.16 X10^3/uL (2.7-7.7); Neutrophil % 81.2 % (47-70); Platelet Count 290 K/mm3 (150-450); RBC Distribution Width CV 14.7 % (11.6-14.6); RBC Distribution Width SD 39.5 fl (35.1-43.9); Red Blood Count 3.35 M/mm3 (4.2-5.4); White Blood Count 11.3 K/mm3 (4.4-11.0)
[2018-03-20 23:41] LABS: Differential Indicated SCAN CRITERIA MET; POSITIVE COUNT NO; POSITIVE DIFFERENTIAL NO; POSITIVE MORPHOLOGY YES
[2018-03-20 23:58] LABS: Anisocytosis 1+; Differential Comment SCAN; Hypochromasia 1+; Microcytosis 1+
[2018-03-21] MEDS: Ceftriaxone 1 GM/50 ML BAG IV (00:03)
[2018-03-21 00:46] VITALS: BP 154/79; PULSE 80; RESP 18; O2SAT 96
== END 2018-03-21 00:49 | disposition home or self-care (01) ==
PROVIDERS: Emergency Provider Emergency Medicine; Family Provider Internal Medicine; PCP Internal Medicine
DX: N39.0 Urinary tract infection, site not specified (principal); D50.9 Iron deficiency anemia, unspecified; E11.22 Type 2 diabetes mellitus with diabetic chronic kidney disease; I12.0 Hypertensive chronic kidney disease with stage 5 chronic kidney disease or end stage renal disease; N18.6 End stage renal disease; Z99.2 Dependence on renal dialysis; I25.10 Atherosclerotic heart disease of native coronary artery without angina pectoris; F41.9 Anxiety disorder, unspecified; F32.9 Major depressive disorder, single episode, unspecified; E66.9 Obesity, unspecified; Z87.442 Personal history of urinary calculi; Z87.440 Personal history of urinary (tract) infections; Z95.5 Presence of coronary angioplasty implant and graft; Z79.82 Long term (current) use of aspirin; Z79.4 Long term (current) use of insulin; Z79.899 Other long term (current) drug therapy
CPT/HCPCS: 80048; 81001; 85025; 87086; 87088; 96361; 96365; 96374; 96375; 99283; J7030; A4216; J2405

== ENCOUNTER 2018-03-29 13:33 | Emergency (ER) | payer MEDICAID, SELFPAY ==
[2018-03-29 13:34] VITALS: BP 162/92; PULSE 98; RESP 20; TEMP 36.5; O2SAT 100; BMI 43.8
[2018-03-29 13:50] VITALS: PULSE 100; RESP 18
[2018-03-29] MEDS: Albuterol 2.5 MG/3 ML VIAL.NEB. INHALATION (13:50)
--- NOTE | 2018-03-29 13:52 | ED.VISSUMM ---
- ER Visit Summary Date of Service: 03/29/18 Chief Complaint: Cough History of Present Illness: The patient is a 42 F presents with a cough. Is been ongoing for 2 days. Is been productive at times. She has not looked at the color of her sputum. She had a recent treatment for UTI. She has finished with this. She denies a fever at home. She did not take anything at home because I did not want to try anything. Physical Examination: Vital signs reviewed. Not hypoxic. HEENT exam unremarkable. Heart is regular rate and rhythm without murmurs. Lungs are clear bilaterally. Abdomen soft nontender. Extremities show no edema. Neurologic exam normal. Test Results: None performed Emergency Department Course and Treatment: The patient will be given albuterol. I do not feel she requires any imaging. This is likely a viral etiology. I will treat her with Leann Guzman. She will follow-up with her PCP Treatment Plan: [] Disposition: Discharge Impression: URI This note was generated with Fitzeal dictation software. It may contain incorrect words, spelling, and punctuation that were not noted in review of the chart prior to signing ED Disposition - Plan for ED Patient: Chief Complaint: Cough Referrals: Melvi Eastman MD [Primary Care Provider] -
--- NOTE | 2018-03-29 13:54 | ED.DEP ---
ED Disposition - Plan for ED Patient: Disposition: Home or Assisted Living Chief Complaint: Cough Instructions: ED Upper Resp Infec No Abx Tx Prescriptions: Guaifenesin/Pseudoephedrne HCl [Guaifenesin-Pse ER 600-60 mg] 1 ea PO BID #14 tab.er.12h Referrals: Melvi Eastman MD [Primary Care Provider] -
--- NOTE | 2018-03-29 14:17 | ED.RN ---
THIS RN TO BEDSIDE TO DISCHARGE PATIENT, UPON DISCHARGE, PATIENT STATES THAT SHE IS STILL SHORT OF BREATH AND DOESN'T FEEL BETTER THAN WHEN SHE CAME IN. PATIENT INSTRUCTED TO GET RX FILLED AND BEGIN TAKING MEDICATION AND THAT WOULD PROVIDE SOME RELIEF. PATIENT STATES THAT SHE WOULD LIKE TO TALK TO THE DOCTOR, DR. BRUCE MADE AWARE.
--- NOTE | 2018-03-29 14:32 | ED.RN ---
PT AMBULATES OUT OF ROOM WITHOUT DIFFICULTY.
== END 2018-03-29 14:32 | disposition home or self-care (01) ==
PROVIDERS: Emergency Provider Emergency Medicine; Family Provider Internal Medicine; PCP Internal Medicine
DX: J06.9 Acute upper respiratory infection, unspecified (principal); I25.10 Atherosclerotic heart disease of native coronary artery without angina pectoris; E11.22 Type 2 diabetes mellitus with diabetic chronic kidney disease; N18.9 Chronic kidney disease, unspecified; Z87.440 Personal history of urinary (tract) infections; Z95.5 Presence of coronary angioplasty implant and graft; Z79.82 Long term (current) use of aspirin; Z79.4 Long term (current) use of insulin; Z79.899 Other long term (current) drug therapy
CPT/HCPCS: 94640; 99282

== ENCOUNTER → 2018-04-08 12:55 | Outpatient (CLI) | payer MEDICAID, SELFPAY ==
[2018-03-29 13:34] VITALS: BMI 43.8
[2018-04-08 13:31] LABS: Hematocrit 25.1 % (37-47); Hemoglobin 8.3 g/dl (12.0-15.0); Mean Corp Hgb Conc 33.1 g/gl (32-36); Mean Corpuscular Hgb 24.7 pg (27.0-32.0); Mean Corpuscular Volume 74.7 fL (81-99); Mean Platelet Vol. 9.3 fl (6.2-12.0); Platelet Count 299 K/mm3 (150-450); RBC Distribution Width CV 13.7 % (11.6-14.6); Red Blood Count 3.36 M/mm3 (4.2-5.4); White Blood Count 6.5 K/mm3 (4.4-11.0)
[2018-04-08 13:34] LABS: Scan Indicated on CBC? Y/N YES- FLAGS NOTED
[2018-04-08 14:07] LABS: Albumin, Serum 3.5 g/dL (3.2-5.0); BUN 56 mg/dL (7-18); BUN/Creat Ratio 11.9 RATIO (10-20); Calcium,Total 9.3 mg/dL (8.5-10.1); Chloride 111 mmol/L (98-107); Creatinine, Serum 4.71 mg/dL (0.55-1.02); EST Glomerular Filtration Rate 11 mL/min (>60); Est Glom Filt Rate - Afr Amer 13 mL/min (>60); Ferritin 316 ng/mL (8-252); Glucose 110 mg/dL (74-106); Iron 41 ug/dL (50-170); Iron Binding Capacity,Total 235 ug/dL (250-450); PERCENT IRON SATURATION 17.4 % (15.0-55.0); Phosphorus 5.2 mg/dL (2.5-4.9); Potassium 5.2 mmol/L (3.5-5.1); Sodium Level 140 mmol/L (136-145)
[2018-04-08 14:10] LABS: Vitamin D,25 Hydroxy 16.3 ng/mL (29.95-100.01)
[2018-04-09 11:00] LABS: HEPATITIS B SURFACE AG Negative (Negative); Hep B Surface Antibodies Non Reactive (.)
== END ==
PROVIDERS: Family Provider Internal Medicine; PCP Internal Medicine; Referring Provider Internal Medicine Nephrology; Visit Provider Internal Medicine Nephrology
DX: N18.5 Chronic kidney disease, stage 5 (principal); E55.9 Vitamin D deficiency, unspecified; D50.9 Iron deficiency anemia, unspecified
CPT/HCPCS: 36415; 80069; 82306; 82728; 83540; 83550; 85027; 86706; 87340

== ENCOUNTER 2018-07-15 10:33 | Observation (INO) | payer MEDICARE, MEDICAID, SELFPAY ==
[2018-05-05 10:41] VITALS: BMI 43.8
[2018-07-15] VITALS (10 sets, daily range): BP systolic 81–148; BP diastolic 51–85; PULSE 71–91; RESP 14–18; TEMP 36.7–37.1; O2SAT 93–99; BMI 41.1; BMI 41.8; BMI 41.9
--- NOTE | 2018-07-15 11:02 | EKG12_ITS ---
Test Reason : FALL Blood Pressure : / mmHG Vent. Rate : 076 BPM Atrial Rate : 076 BPM P-R Int : 144 ms QRS Dur : 096 ms QT Int : 436 ms P-R-T Axes : 014 014 070 degrees QTc Int : 490 ms Normal sinus rhythm Possible Anterior infarct , age undetermined Abnormal ECG Confirmed by FILI VINES, INOCENCIO ([id number]), market editor JACOBO GILLILAND ([id number]) on 07/17/2018 9:14:10 AM Referred By: JENIFER Confirmed By:INOCENCIO PENN MD
--- NOTE | 2018-07-15 11:02 | CT_ITS ---
STUDY: CT BRAIN WITHOUT CONTRAST REASON FOR EXAM: Female, 43 years old. Syncopal episode during dialysis. RADIATION DOSAGE (If Supplied By Facility): CTDIvol = ( 44.99 ) mGy, DLP = ( 779.24 ) mGycm TECHNIQUE: Transaxial CT imaging of the brain was performed without administration of intravenous contrast material. Individualized dose optimization techniques were used for this CT. COMPARISON: No relevant priors. FINDINGS: Scalp hematoma overlying the frontal bone. Normal calvarium. Normal size ventricles and extra-axial spaces for the patient's age. Normal white matter tracts of the cerebral hemispheres. Normal basal ganglia and thalami. Normal brainstem. Normal cerebellum. There is no intracranial hemorrhage. There are no findings of an acute ischemic infarction. Normal visualized paranasal sinuses. CT/Brain/Head without Contrast IMPRESSION: Normal unenhanced CT scan of the brain. Small scalp hematoma overlying the frontal bone. Electronically Signed: Donald Pride, at 13:09 EDT , Service support ,
--- NOTE | 2018-07-15 11:03 | CT_ITS ---
STUDY: CT CERVICAL SPINE WITHOUT CONTRAST REASON FOR EXAM: Female, 43 years old. Syncopal episode during dialysis. RADIATION DOSAGE (If Supplied By Facility): CTDIvol = ( 30.64 ) mGy, DLP = ( 640.75 ) mGycm TECHNIQUE: High resolution transaxial imaging was performed without contrast material. Sagittal and coronal images were reconstructed. Individualized dose optimization techniques were used for this CT. COMPARISON: None FINDINGS: Normal craniovertebral junction. Normal anterior atlantoaxial articulation. Normal odontoid process. Normal cervical lordosis. Normal vertebral bodies and posterior osseous elements. C2-3: Normal endplates. Normal disc height and morphology. Normal central canal and intervertebral neuroforamina. C3-4: Normal endplates. Normal disc height and morphology. Normal central canal and intervertebral neuroforamina. C4-5: Normal endplates. Normal disc height and morphology. Normal central canal and intervertebral neuroforamina. C5-6: Normal endplates. Normal disc height and morphology. Normal central canal and intervertebral neuroforamina. C6-7: Normal endplates. Normal disc height and morphology. Normal central canal and intervertebral neuroforamina. C7-T1: Normal endplates. Normal disc height and morphology. Normal central canal and intervertebral neuroforamina. Normal visualized soft tissue structures. CT/Spine Cervical without Contras IMPRESSION: Normal unenhanced CT examination of the cervical spine. Electronically Signed: Donald Pride, at 13:10 EDT , Service support ,
--- NOTE | 2018-07-15 11:33 | ED.RN ---
IV START UNABLE TO OBTAIN BLOOD. CALLED LAB, TO COME DRAW
[2018-07-15 12:00] LABS: Absolute Lymphocyte Count 1.08 X10^3/ul (0.83-4.51); Absolute Neutrophil Count 6.2 X10^3/uL (2.0-7.7); Basophil# 0.04 X10^3/uL; Basophil% 0.5 % (0-1); Eosinophil# 0.24 X10^3/uL; Eosinophils% 2.8 % (0-5); Hematocrit 38.3 % (37-47); Lymphocyte # 1.08 X10^3/ul (4.0); Lymphocyte % 12.7 % (19-41); Mean Corp Hgb Conc 33.9 g/gl (32-36); Mean Corpuscular Hgb 26.1 pg (27.0-32.0); Mean Corpuscular Volume 76.8 fL (81-99); Mean Platelet Vol. 8.3 fl (6.2-12.0); Monocyte# 0.86 X10^3/uL; Monocyte% 10.1 % (0-10); Neutrophil # 6.24 X10^3/uL (2.7-7.7); Neutrophil % 73.7 % (47-70); POSITIVE COUNT NO; POSITIVE DIFFERENTIAL NO; POSITIVE MORPHOLOGY NO; Platelet Count 181 K/mm3 (150-450); RBC Distribution Width CV 16.7 % (11.6-14.6); RBC Distribution Width SD 46.2 fl (35.1-43.9); Red Blood Count 4.99 M/mm3 (4.2-5.4); White Blood Count 8.5 K/mm3 (4.4-11.0)
[2018-07-15] MEDS: 0.9% Normal Saline 1,000 ML 15 ML IV (12:14)
[2018-07-15 12:25] LABS: Anion Gap 8 (5-15); BUN 39 mg/dL (7-18); BUN/Creat Ratio 11.6 RATIO (10-20); Calcium,Total 9.2 mg/dL (8.5-10.1); Chloride 101 mmol/L (98-107); Creatinine, Serum 3.36 mg/dL (0.55-1.02); EST Glomerular Filtration Rate 16 mL/min (>60); Est Glom Filt Rate - Afr Amer 19 mL/min (>60); Estimated Creatinine Clearance 17.07 ml/min; Glucose 130 mg/dL (74-106); Potassium 4.5 mmol/L (3.5-5.1); Sodium Level 137 mmol/L (136-145)
--- NOTE | 2018-07-15 13:31 | NURSING ---
DR PIRES FOR DR CRUZ
--- NOTE | 2018-07-15 13:35 | ED.VISSUMM ---
- ER Visit Summary Date of Service: 07/15/18 Chief Complaint: [Syncope] History of Present Illness: The patient is a 43 F [presents the emergency department with syncopal episode occurred earlier today. Patient had finished dialysis and was standing at the nursing desk when she is not sure what happened but woke up on the floor. Patient struck her head. Patient complaining of a headache and neck pain. Patient has a history of diabetes, hypertension, coronary artery disease, chronic kidney disease. Patient also has a fistula in her left upper arm and has steal phenomena and is scheduled to see a vascular surgeon for some sort of a revision on her fistula on 01 August. Patient's had chronic pain and difficulty using her left hand for about a year. Physical Examination: [HEENT-PERRLA, EOMI. Cranial nerves II through XII grossly intact. TMs clear. Mucous membranes moist. No adenopathy. She has a frontal hematoma noted. No bony step-offs. Patient has some mild tenderness to the inferior orbit however no step-offs noted. Patient does have some conjunctival hemorrhage on the right which patient states is from an injection she recently had to her eye. She has some mild diffuse tenderness over cervical spine especially over the right cervical paraspinal musculature. Cardiovascular-regular rate and rhythm without murmur or ectopy Lungs-clear to auscultation, chest wall stable without crepitus or subcu emphysema Abdomen-normoactive bowel sounds, soft, nontender, no rebound or rigidity, no peritoneal signs. Extremities-intact ?4, normal range of motion, normal pulses, atraumatic] Test Results: [EKG obtained on arrival shows sinus rhythm with a ventricular rate of 76 bpm with possible old anterior infarct. CBC with differential is normal. Chemistries unremarkable. BUN was 39 creatinine 3.36. Glucose was 130. Troponin is less than 0.015. CT scan of the brain showed a scalp hematoma otherwise nothing acute. CT C-spine showed nothing acute.] Emergency Department Course and Treatment: [Patient had positive orthostatics and was written for 500 cc fluid bolus.] Treatment Plan: [Admit for fluids and observation.] Disposition: [Admit] Impression: [Syncope Orthostatic hypotension] This note was generated with Boostable dictation software. It may contain incorrect words, spelling, and punctuation that were not noted in review of the chart prior to signing ED Disposition - Plan for ED Patient: Referrals: Melvi Eastman MD [Primary Care Provider] -
--- NOTE | 2018-07-15 13:41 | NURSING ---
PCU SYNCOPE PAINTSIL
[2018-07-15] MEDS: Morphine 4 MG/ML Syringe IV (13:58)
[2018-07-15] MEDS: 0.9% Normal Saline 1,000 ML 150 ML IV ×2 (13:58→20:44)
[2018-07-15] MEDS: Ondansetron 4 MG/2 ML Vial IV (13:59)
--- NOTE | 2018-07-15 14:16 | HP.PCM_ITS ---
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 Patient was in her usual state of health, went for dialysis today, finished her dialysis, 3.5 kg of fluid was removed per dialysis report. Patient got up out of his seat, felt dizzy and had a syncopal episode. She fell flat on her face. She woke up a few minutes later, was not confused, no incontinence of urine or stool, no seizure activity was noted. She was brought to the emergency department and found to be orthostatic. Blood pressure on admission was 123/73, heart rate was 79, temperature was 98.2F, SPO2 was 94% on room air. Her admitting blood work showed WBC count 8.5, hemoglobin 13.0, platelet count is 181, BMP was unremarkable except for BUN of 39, creatinine 3.39, troponins were negative. EKG showed normal sinus rhythm, no acute ST changes. Past Medical History Past Medical History (Chronic Problems): Chronic Problems (Last Reviewed 05/05/18 @ 10:37 by Catherine Barboza) Chronic renal failure, stage 4 (severe) (Chronic) Morbid obesity (Chronic) HTN (hypertension) (Chronic) Bilateral hydronephrosis (Chronic) Iron deficiency anemia (Chronic) Type II diabetes mellitus (Chronic) Coronary artery disease (Chronic) Chronic low back pain (Chronic) Hydroureter (Chronic) Hydronephrosis (Chronic) Bladder outlet obstruction (Chronic) Medical History: Medical History (Last Reviewed 05/05/18 @ 10:37 by Catherine Barboza) Problem with dialysis access (Acute) T82.898A Chronic renal failure, stage 4 (severe) (Chronic) N18.4 Anemia D64.9 Anxiety and depression F41.8 Back problem M53.9 Carpal tunnel syndrome G56.00 Diabetes type 2, controlled E11.9 H/O nephrolithotomy with removal of calculi Z98.890, Z87.442 H/O transfusion of whole blood Z92.89 Headache R51 Heart disease I51.9 Hives L50.9 Kidney disease N28.9 Kidney failure N19 Kidney stone N20.0 Neuropathy G62.9 Recurrent infections B99.9 Seasonal allergies J30.2 UTI (urinary tract infection) N39.0 Vitamin deficiency E56.9 HTN (hypertension) I10 Allergies ciprofloxacin [From Cipro] Adverse Reaction (Verified 07/15/18 10:36) Vomiting contrast dye Allergy (Severe, Uncoded 07/15/18 10:36) Anaphylaxis Home Medications: Ambulatory Orders Medication Instructions Recorded Ergocalciferol [Vitamin D] 50,000 unit PO WE 04/18/17 Insulin Glargine,Hum.rec.anlog 25 unit SQ QHS PRN 04/18/17 [Basaglar Kwikpen U-100] Metoprolol Tartrate [Lopressor 25 mg PO BID 07/31/17 (beta hellen)] Hydrocodone/Acetaminophen [[place] 1 ea PO Q6H PRN PRN 02/28/18 5-325 Tablet] Venlafaxine XR [Effexor Xr] 150 mg PO DAILY 02/28/18 Aspirin E.C. 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 Paternal History Items: Unknown - Patient was adopted and she does not know her family of origin to be able to provide any family medical history. Review of Systems Constitutional: Reports: Malaise, Weakness, Fatigue. Denies: Anorexia, Chills, Fever, Weight Change Eyes: Denies: Blurred vision, Cataracts, Conjunctivae Inflammation, Pain, Redness, Vision Change HEENT: Denies: Difficulty Hearing, Difficulty Swallowing, Head Aches, Hearing Changes, Sinus Congestion, Sinus Drainage Cardiovascular: Reports: Light Headedness, Syncope. Denies: Chest Pain, Claudication, Chest Pressure, Chest Tightness, Orthopnea, Palpitations Respiratory: Denies: Cough, Shortness of Breath, Shortness of breath at rest, Shortness of breath upon exertion, Sputum production Gastrointestinal: Denies: Abdominal Pain, Constipation, Hematemesis, Nausea, Vomiting Genitourinary: Denies: Dysuria, Frequency, Hematuria, Incontinence Gynecological: Denies: Breast symptoms, Excessively long or heavy periods, Vaginal discharge Musculoskeletal: Reports: Back Pain. Denies: Joint Pain, Joint stiffness, Joint swelling, Joint Tenderness Skin: Denies: Pruritis, Rash, Wounds Neurological: Denies: Difficulty swallowing, Focal weakness, Numbness, Tingling Psychiatric: Denies: Anxiety, Depression, Homicidal Ideations, Suicidal Ideations Hematologic/ Lymphatic: Denies: Easy Bruising, Easy Bleeding VTE Information - Inpt Only VTE Present on Admission: No VTE Pharm Prophylaxis ordered?: Yes Patient Problems: Active and Suspected Problems (Last Reviewed 05/05/18 @ 10:37 by Catherine Barboza) Syncope (Acute) Orthostatic hypotension (Acute) - Physical Exam General: Alert, Oriented x3, Cooperative HEENT: Atraumatic, PERRLA, EOMI, Normocephalic Neck: Supple, No JVD, Negative Carotid Bruits Lungs: Clear to auscultation, Normal air movement Cardiovascular: Regular rate, No murmurs Abdomen: Bowel Sounds Present, Soft, Non Tender Extremities: No edema, Capillary Refill Less than 3 Seconds Skin: No rashes, No breakdown Musculoskeletal: No Tenderness to Palpation of Joints or Extremities Neurological: Cranial nerves II-XII grossly intact Psych/Mental Status: Normal Affect, Appropriate Vital Signs Temp Pulse Resp BP Pulse Ox 98.2 F 79 14 147/85 H 97 07/15/18 10:34 07/15/18 13:55 07/15/18 13:55 07/15/18 13:55 07/15/18 13:55 Oxygen Delivery Method Room Air Weight: 102.058 kg Body Mass Index (BMI) 41.1 Finger Stick Blood Glucose 98 Laboratory Tests Past 24 Hrs 07/15/18 07/15/18 11:54 11:54 WBC 8.5 RBC 4.99 Hgb 13.0 Hct 38.3 MCV 76.8 L MCH 26.1 L MCHC 33.9 RDW 16.7 H RDW Differential 46.2 H Plt Count 181 MPV 8.3 Immature Gran % (Auto) 0.200 Neut % (Auto) 73.7 H Lymph % (Auto) 12.7 L [place] % (Auto) 10.1 H Eos % (Auto) 2.8 Baso % (Auto) 0.5 Absolute Neuts (auto) 6.2 Absolute Lymphs (auto) 1.08 Total Counted Not Reportable Sodium 137 Potassium 4.5 Chloride 101 Carbon Dioxide 28.0 Anion Gap 8 BUN 39 H Creatinine 3.36 H Estim Creat Clear Calc 17.07 Est GFR (MDRD) Af Amer 19 L Est GFR (MDRD) Non-Af 16 L BUN/Creatinine Ratio 11.6 Glucose 130 H Calcium 9.2 Troponin I < 0.015 Assessment/Plan All Active Problems (Last Reviewed 05/05/18 @ 10:37 by Catherine Barboza) Cystitis (Acute) Syncope (Acute) Orthostatic hypotension (Acute) Problem with dialysis access (Acute) Gastroenteritis (Acute) Ureteral calculi (Acute) Metabolic acidosis (Acute) Acute kidney injury (Acute) Nausea and vomiting (Acute) Sepsis (Acute) UTI (urinary tract infection) (Acute) FRANSICO (acute kidney injury) (Acute) 43 year old F past medical history of ESRD on hemodialysis via left upper extremity fistula, hypertension, type II DM, morbid obesity who comes in with a syncopal episode after dialysis. 1. Syncope secondary to orthostatic hypotension. Patient was orthostatic on admission, likely related to fluid removal during dialysis. Plan: Admit to PCU, monitor on telemetry, IV fluids, recheck orthostatics every shift, monitor vitals closely. 2. Orthostatic hypotension, secondary to dehydration and fluid removal during dialysis, management as in #1 3. Diabetes mellitus type 2, complicated by diabetic nephropathy, continue on home Lantus, Accu-Cheks with insulin sliding scale 4. Obstructive uropathy, chronic, still makes urine, not in pain 5. CAD with remote s/p stent, on aspirin, beta-hellen, losartan 6. Depression, on Effexor 7. ESRD on hemodialysis, follows Dr. Odonnell, dialysis Saturday, , Saturday 8. Hypertension, controlled, continue home losartan 9. Chronic back pain, fairly controlled, on [place] 10. Morbid obesity, BMI 41.9, diet and exercise is recommended 11. DVT prophylaxis - Heparin SC Code Visit OBSV E&M: 80609 Initial observation care L3
[2018-07-15 17:17] LABS: AST(SGOT) 27 U/L (15-37); Alanine Aminotransfer ALT/SGPT 33 U/L (13-56); Albumin, Serum 3.8 g/dL (3.2-5.0); Alkaline Phosphatase 151 U/L (45-117); Bilirubin, Direct 0.12 mg/dL (0.00-0.30); Globulin 3.8 g/dL (2.2-4.2); Protein, Total 7.6 g/dL (6.4-8.2)
[2018-07-15] MEDS: HYDROcodone Bitartrate/Apap 5/325 Tablet PO (18:44)
[2018-07-15] MEDS: Pregabalin 50 MG Capsule PO (22:48)
[2018-07-15] MEDS: Metoprolol Tartrate 25 MG Tablet PO (22:48)
[2018-07-15] MEDS: Nortriptyline 25 MG Capsule 50 MG PO (22:49)
[2018-07-15 23:20] LABS: Bedside Glucose 105 mg/dL (70-110)
[2018-07-16] VITALS (13 sets, daily range): BP systolic 93–159; BP diastolic 56–80; PULSE 68–85; RESP 16; TEMP 36.4–36.8; O2SAT 94–98
[2018-07-16] MEDS: HYDROcodone Bitartrate/Apap 5/325 Tablet PO ×3 (03:04→19:01)
[2018-07-16] MEDS: 0.9% Normal Saline 1,000 ML 150 ML IV ×2 (03:05→10:26)
[2018-07-16 06:08] LABS: Absolute Lymphocyte Count 1.35 X10^3/ul (0.83-4.51); Absolute Neutrophil Count 4.2 X10^3/uL (2.0-7.7); Basophil# 0.02 X10^3/uL; Basophil% 0.3 % (0-1); Eosinophil# 0.19 X10^3/uL; Eosinophils% 2.9 % (0-5); Hematocrit 34.1 % (37-47); Hemoglobin 11.4 g/dl (12.0-15.0); Lymphocyte # 1.35 X10^3/ul (4.0); Lymphocyte % 20.5 % (19-41); Mean Corp Hgb Conc 33.4 g/gl (32-36); Mean Corpuscular Hgb 25.4 pg (27.0-32.0); Mean Corpuscular Volume 75.9 fL (81-99); Mean Platelet Vol. 8.8 fl (6.2-12.0); Monocyte# 0.77 X10^3/uL; Monocyte% 11.7 % (0-10); Neutrophil # 4.23 X10^3/uL (2.7-7.7); Neutrophil % 64.3 % (47-70); Platelet Count 194 K/mm3 (150-450); RBC Distribution Width CV 16.3 % (11.6-14.6); RBC Distribution Width SD 43.9 fl (35.1-43.9); Red Blood Count 4.49 M/mm3 (4.2-5.4); White Blood Count 6.6 K/mm3 (4.4-11.0)
[2018-07-16 06:23] LABS: POSITIVE COUNT NO; POSITIVE DIFFERENTIAL NO; POSITIVE MORPHOLOGY NO
[2018-07-16 06:26] LABS: Anion Gap 9 (5-15); BUN 53 mg/dL (7-18); BUN/Creat Ratio 12.4 RATIO (10-20); Calcium,Total 8.7 mg/dL (8.5-10.1); Chloride 104 mmol/L (98-107); Creatinine, Serum 4.29 mg/dL (0.55-1.02); EST Glomerular Filtration Rate 12 mL/min (>60); Est Glom Filt Rate - Afr Amer 15 mL/min (>60); Estimated Creatinine Clearance 13.37 ml/min; Glucose 110 mg/dL (74-106); Potassium 4.8 mmol/L (3.5-5.1); Sodium Level 140 mmol/L (136-145)
[2018-07-16] MEDS: Heparin Injection (Vial) 5,000 UNIT/ML VIAL 5000 UNIT SC ×3 (06:40→21:38)
[2018-07-16 07:06] LABS: Bedside Glucose 86 mg/dL (70-110)
[2018-07-16] MEDS: Aspirin E.C. 81 MG Tablet PO (08:24)
[2018-07-16] MEDS: Pregabalin 50 MG Capsule PO ×2 (08:24→21:42)
[2018-07-16] MEDS: Metoprolol Tartrate 25 MG Tablet PO ×2 (08:24→21:38)
[2018-07-16] MEDS: Losartan Potassium 25 MG Tablet PO (08:24)
[2018-07-16] MEDS: Venlafaxine XR 150 MG Capsule PO (08:24)
[2018-07-16] MEDS: Insulin Lispro 100 UNIT/ML INSULN.PEN SQ (11:51)
--- NOTE | 2018-07-16 12:32 | PCM.PROGNOTE ---
Patient Problems: Active and Suspected Problems (Last Reviewed 05/05/18 @ 10:37 by Catherine Barboza) Syncope (Acute) Orthostatic hypotension (Acute) Subjective: Chief complaint: Follow-up after admission for syncope and orthostatic hypotension. Patient seen and examined. No acute events overnight. This morning, she is feeling better, denied dizziness or lightheadedness. Denied chest pain or shortness of breath. Later today, she was taken for a walk and patient mentioned that she is very weak and tired, reported minimal dizziness. Denies chest pain or shortness of breath again. Her orthostatic vitals still showing significant orthostatic changes which is attributed to volume depletion secondary to diuresis. Her EKG revealed normal sinus rhythm, no acute ischemic changes. Resting vital signs are stable. - Physical Exam General: Alert, Oriented x3, Cooperative, No apparent distress HEENT: Atraumatic, PERRLA, EOMI, Normocephalic Oral: Moist Mucosa, No Gingival or Mucosal Lesions/ Ulcerations Neck: Supple, No JVD, Negative Carotid Bruits, Trachea Midline, Thyroid Normal Size and Texture Lungs: Clear to auscultation, No rhonchi, No wheeze, No rales, Diminished Cardiovascular: Regular rate, Regular Rhythm, Normal S1, Normal S2, No murmurs Abdomen: Bowel Sounds Present, Soft, Non Tender, Non-Distended, No Hepato-splenomegaly Extremities: No clubbing, No cyanosis, No edema Skin: No rashes, No breakdown Lymphatic: No Cervical, Supraclavicular, or Inguinal Adenopathy Neurological: Cranial nerves II-XII grossly intact, Neuro grossly intact Psych/Mental Status: Normal Affect, Appropriate, Alert and oriented to time, place, person, mood and affect Vital Signs Temp Pulse Resp BP Pulse Ox 97.8 F 68 16 140/75 H 98 07/16/18 08:13 07/16/18 10:53 07/16/18 08:13 07/16/18 08:24 07/16/18 08:13 Oxygen Delivery Method Room Air Weight: 233 lb 11.04 oz Body Mass Index (BMI) 41.8 Finger Stick Blood Glucose 98 Orthostatic Vital Signs Start: 07/16/18 06:32 Freq: q24h Status: Active Protocol: Activity Type Activity Date Activity User E-Sign Co-Sign Detail Recorded Client Recorded Date Recorded By Document 07/16/18 06:32 [facility] [id number] 07/16/18 06:34 [facility] 07/16/18 06:32 Orthostatic Vitals Standing -Blood Pressure (90/60-120/80) 93/56 L -Extremity Use Right Arm -Pulse Rate (60-100) 76 Sitting -Blood Pressure (90/60-120/80) 139/79 H -Extremity Use Right Arm -Pulse Rate (60-100) 73 Lying -Blood Pressure (90/60-120/80) 147/72 H -Extremity Use Right Arm -Pulse Rate (60-100) 73 Intake and Output for Last 24 Hours 07/14/18 07/15/18 07/16/18 23:59 23:59 23:59 Intake Total 1564 / 1564 1890 / 1890 Balance 1564 / 1564 189 / 1890 Laboratory Tests Past 24 Hrs 07/15/18 07/16/18 07/16/18 11:54 05:48 05:48 WBC 6.6 RBC 4.49 Hgb 11.4 L Hct 34.1 L MCV 75.9 L MCH 25.4 L MCHC 33.4 RDW 16.3 H RDW Differential 43.9 Plt Count 194 MPV 8.8 Immature Gran % (Auto) 0.300 Neut % (Auto) 64.3 Lymph % (Auto) 20.5 [place] % (Auto) 11.7 H Eos % (Auto) 2.9 Baso % (Auto) 0.3 Absolute Neuts (auto) 4.2 Absolute Lymphs (auto) 1.35 Total Counted Not Reportable Sodium 140 Potassium 4.8 Chloride 104 Carbon Dioxide 27.0 Anion Gap 9 BUN 53 H Creatinine 4.29 H Estim Creat Clear Calc 13.37 Est GFR (MDRD) Af Amer 15 L Est GFR (MDRD) Non-Af 12 L BUN/Creatinine Ratio 12.4 Glucose 110 H Calcium 8.7 Total Bilirubin 0.40 Direct Bilirubin 0.12 AST 27 ALT 33 Alkaline Phosphatase 151 H Total Protein 7.6 Albumin 3.8 Globulin 3.8 POC Glucose 07/16/18 07/15/18 07:01 22:47 POC Glucose 86 105 Medical Necessity - Tobacco Use Smoking Status: Never smoker Tobacco Use: Non-smoker Assessment/Plan All Active Problems (Last Reviewed 05/05/18 @ 10:37 by Catherine Barboza) Syncope (Acute) Orthostatic hypotension (Acute) This is a 43 years old female patient admitted because of syncopal episode which is attributed to orthostatic hypotension secondary to probable volume depletion because of dialysis. #1 syncopal episode: Likely due to orthostatic hypotension because of volume depletion. Patient denies any chest pain or shortness of breath. EKG revealed normal sinus rhythm, no acute ischemic changes. Today, she is feeling better but she is weak and tired, no dizziness or lightheadedness. Her repeat orthostatic vitals were positive, blood pressure came down from 147 down to 93 systolic, heart rate remained the same. Patient was asymptomatic upon standing. She has been on IV fluids. Later today, she mentioned that she is very weak and tired and she is concerned to go home tonight because she lives alone. Plan: DC IV fluids, nephrology consult, dialysis tomorrow morning, anticipate discharge home tomorrow morning. #2 end-stage renal disease on dialysis: BUN, creatinine and potassium are stable. Plan for nephrology consult, dialysis tomorrow morning. #3 type 2 diabetes mellitus: Blood sugar stable, continue Lantus and sliding scale. #4 hypertension: Blood pressure stable, continue metoprolol and losartan. Repeat orthostatic vitals tomorrow morning. #5 CAD: Stable, EKG revealed no acute ischemic changes. Troponin is negative x1. Continue aspirin, losartan and metoprolol. #6 chronic anemia: Due to anemia of chronic disease. Hemoglobin stable. #7 DVT prophylaxis: Subcu heparin. This note was generated with [employer]™ dictation software. It may contain incorrect words, spelling, and punctuation that were not noted in checking the note before signing. Code Visit OBSV E&M: 37292 Subsequent observation care L2
[2018-07-16 12:41] LABS: Bedside Glucose 164 mg/dL (70-110)
[2018-07-16 16:40] LABS: Bedside Glucose 89 mg/dL (70-110)
[2018-07-16] MEDS: Nortriptyline 25 MG Capsule 50 MG PO (21:39)
[2018-07-17] VITALS (8 sets, daily range): BP systolic 116–152; BP diastolic 64–86; PULSE 74–80; RESP 16; TEMP 36.6–36.8; O2SAT 94–98
[2018-07-17 02:16] LABS: Bedside Glucose 111 mg/dL (70-110)
[2018-07-17] MEDS: Heparin Injection (Vial) 5,000 UNIT/ML VIAL 5000 UNIT SC (06:22)
[2018-07-17] MEDS: HYDROcodone Bitartrate/Apap 5/325 Tablet PO (06:30)
[2018-07-17 06:50] LABS: Bedside Glucose 90 mg/dL (70-110)
--- NOTE | 2018-07-17 07:45 | PCM.DC ---
- Discharge Diagnoses Current Active Problems: Current Active and Chronic Problems (Last Updated 07/16/18 @ 12:35 by Andria Still MD) Syncope (Acute) Orthostatic hypotension (Acute) You will use the following diet at home:: Calorie/Carbohydrate Controlled (specify 1200, 1400, etc) - 1800 giovanny, Cardiac, Renal (restricted protein/sodium) Your food should be the consistency of: Regular Discharge Activity: Return to Normal Activity Weight Bearing Status: Weight bearing as tolerated Call your doctor if you observe: Fever of 101 or Higher, Shortness of breath, Dizziness, Fainting spells, Chest pain, Increased palpitations (irregular heartbeat), Uncontrolled pain Allergies/Adverse Reactions: Allergies ciprofloxacin [From Cipro] Adverse Reaction (Verified 07/15/18 10:36) Vomiting contrast dye Allergy (Severe, Uncoded 07/15/18 10:36) Anaphylaxis Medications to take at Discharge Ergocalciferol [Vitamin D] 50,000 unit PO WE 04/18/17 Insulin Glargine,Hum.rec.anlog [Basaglar Kwikpen U-100] 25 unit SQ QHS PRN 04/18/17 Metoprolol Tartrate [Lopressor (beta hellen)] 25 mg PO BID 07/31/17 Hydrocodone/Acetaminophen [[place] 5-325 Tablet] 1 ea PO Q6H PRN PRN 02/28/18 Venlafaxine XR [Effexor Xr] 150 mg PO DAILY 02/28/18 Aspirin E.C. [Ecotrin] 81 mg PO DAILY@0800 07/15/18 Losartan Potassium [Cozaar] 25 mg PO DAILY 07/15/18 Nortriptyline HCl [Pamelor] 50 mg PO QHS 07/15/18 Pregabalin [Lyrica] 50 mg PO BID 07/15/18 Primary Care Physician: Melvi Eastman MD [Primary Care Provider] - Please follow up with your Primary Care Physician in: 1 week. Test Results: Test results from this visit will be discussed in further detail at your follow-up appointment, if applicable.
[2018-07-17 11:50] LABS: Bedside Glucose 86 mg/dL (70-110)
[2018-07-17] MEDS: Metoprolol Tartrate 25 MG Tablet PO (12:36)
[2018-07-17] MEDS: Losartan Potassium 25 MG Tablet PO (12:37)
[2018-07-17] MEDS: Venlafaxine XR 150 MG Capsule PO (12:37)
[2018-07-17] MEDS: Aspirin E.C. 81 MG Tablet PO (12:37)
[2018-07-17] MEDS: Pregabalin 50 MG Capsule PO (12:40)
--- NOTE | 2018-07-17 13:03 | NURSING ---
PT OFF DIALYSIS AT 1200. ASSISTED W/SHOWER BY TRAFFIC MAINTENANCE SUPERVISOR'S-PT ASHU WELL. PT AMB IN ROOM AT BASELINE. STAYED FOR 1HR AFTER DIALYSIS AND VERBALIZES READY TO BE D/C'D. PT MOM PRESENT. DENIES FURTHER NEEDS.
--- NOTE | 2018-07-17 13:51 | DS.PCM_ITS ---
Discharge Date and Diagnosis Date of Admission: 07/15/18 Date of Discharge: 07/17/18 - Primary Discharge Diagnosis #1 syncopal episode #2 orthostatic hypotension Due to volume depletion secondary to dialysis. - Secondary Discharge Diagnosis Chronic Problems (Last Updated 07/16/18 @ 12:35 by Andria Still MD) Chronic renal failure, stage 4 (severe) (Chronic) Morbid obesity (Chronic) HTN (hypertension) (Chronic) Bilateral hydronephrosis (Chronic) Iron deficiency anemia (Chronic) Type II diabetes mellitus (Chronic) Coronary artery disease (Chronic) Chronic low back pain (Chronic) Hydroureter (Chronic) Bladder outlet obstruction (Chronic) Hospital Course and Treatment Imaging Results: Clinical Impression(s) from Imaging Studies Brain CT 07/15/18 11:02 IMPRESSION: Normal unenhanced CT scan of the brain. Small scalp hematoma overlying the frontal bone. Electronically Signed: Donald Pride, at 13:09 EDT , Service support , Cervical Spine CT 07/15/18 11:03 IMPRESSION: Normal unenhanced CT examination of the cervical spine. Electronically Signed: Donald Pride, at 13:10 EDT , Service support , Operations: None Procedures: EKG Summary of Care Provided: Patient seen and examined on the day of discharge and appeared to be stable to be discharged home. She underwent dialysis on the day of discharge and she did okay after dialysis. Her vital signs were stable. The patient is a 43 year old F admitted because of syncopal episode after she had dialysis as outpatient. She was found to have orthostatic hypotension which is the etiology of her syncopal episode and attributed to volume depletion after dialysis. Her EKG revealed normal sinus rhythm without evidence of acute ischemic changes. CT scan brain showed no acute findings. On admission, patient had positive orthostatic vitals and her blood pressure dropped significantly upon standing. She was treated with IV fluids. She was continued on her home medications without any changes. Nephrology was consulted for hemodialysis which was done on the day of discharge. After dialysis on the day of discharge, patient did well and she was able to ambulate without any symptoms. Patient discharged home in a stable medical condition, discharged on the same medication that she has been taking without any changes, recommended follow-up with PCP in 1 week and follow-up with nephrology as scheduled. - Physical Exam General: Alert, Oriented x3, Cooperative, No apparent distress HEENT: Atraumatic, PERRLA, EOMI, Normocephalic Oral: Moist Mucosa, No Gingival or Mucosal Lesions/ Ulcerations Neck: Supple, No JVD, Negative Carotid Bruits, Trachea Midline, Thyroid Normal Size and Texture Lungs: Clear to auscultation, No rhonchi, No wheeze, No rales, Diminished Cardiovascular: Regular rate, Regular Rhythm, Normal S1, Normal S2, PMI Normal Abdomen: Bowel Sounds Present, Soft, Non Tender, Non-Distended, No Hepato- splenomegaly Extremities: No clubbing, No cyanosis, No edema Skin: No rashes, No breakdown Lymphatic: No Cervical, Supraclavicular, or Inguinal Adenopathy Neurological: Cranial nerves II-XII grossly intact, Neuro grossly intact Psych/Mental Status: Normal Affect, Appropriate Vital Signs Temp Pulse Resp BP Pulse Ox 97.8 F 78 16 128/64 H 98 07/17/18 12:32 07/17/18 12:36 07/17/18 12:32 07/17/18 12:36 07/17/18 12:32 Oxygen Delivery Method Room Air Weight: 239 lb 3.225 oz Body Mass Index (BMI) 41.8 Finger Stick Blood Glucose 98 Intake and Output for Last 24 Hours 07/15/18 07/16/18 07/17/18 23:59 23:59 23:59 Intake Total 1564 / 1564 2089 360 / 360 Output Total 1500 / 1500 Balance 1564 / 1564 2089 -1140 / -1140 POC Glucose 07/17/18 07/17/18 07/16/18 11:43 06:46 21:37 POC Glucose 86 90 111 H 07/16/18 16:27 POC Glucose 89 Discharge Activity: Return to Normal Activity Weight Bearing Status: Weight bearing as tolerated Call your doctor if you observe: Fever of 101 or Higher, Shortness of breath, Dizziness, Fainting spells, Chest pain, Increased palpitations (irregular heartbeat), Uncontrolled pain Home Medications: Medications to take at Discharge Ergocalciferol [Vitamin D] 50,000 unit PO WE 04/18/17 Insulin Glargine,Hum.rec.anlog [Basaglar Kwikpen U-100] 25 unit SQ QHS PRN 04/18/17 Metoprolol Tartrate [Lopressor (beta hellen)] 25 mg PO BID 07/31/17 Hydrocodone/Acetaminophen [[place] 5-325 Tablet] 1 ea PO Q6H PRN PRN 02/28/18 Venlafaxine XR [Effexor Xr] 150 mg PO DAILY 02/28/18 Aspirin E.C. [Ecotrin] 81 mg PO DAILY@0800 07/15/18 Losartan Potassium [Cozaar] 25 mg PO DAILY 07/15/18 Nortriptyline HCl [Pamelor] 50 mg PO QHS 07/15/18 Pregabalin [Lyrica] 50 mg PO BID 07/15/18 Primary Care Physician: Melvi Eastman MD [Primary Care Provider] - Please follow up with your Primary Care Physician in: 1 week. Disposition: Home Minutes spent on discharge:: 26 Patient Condition:: Stable Medical Necessity - Tobacco Use Smoking Status: Never smoker Tobacco Use: Non-smoker Meaningful Use Info Meaningful Use Diagnoses (Choose all that apply): None applicable Code Visit OBSV E&M: 22640 Observation care discharge
== END 2018-07-17 07:46 | disposition home or self-care (01) ==
LOC: ED 11:30 → PCU 15:11
PROVIDERS: Admitting Provider Internal Medicine; Emergency Provider Emergency Medicine; Family Provider Internal Medicine; PCP Internal Medicine; Visit Provider Hospitalist
DX: I95.1 Orthostatic hypotension (principal); E11.22 Type 2 diabetes mellitus with diabetic chronic kidney disease; I12.0 Hypertensive chronic kidney disease with stage 5 chronic kidney disease or end stage renal disease; D63.8 Anemia in other chronic diseases classified elsewhere; N18.6 End stage renal disease; I25.10 Atherosclerotic heart disease of native coronary artery without angina pectoris; Z79.899 Other long term (current) drug therapy; G89.29 Other chronic pain; Z79.4 Long term (current) use of insulin; Z79.82 Long term (current) use of aspirin; E66.01 Morbid (severe) obesity due to excess calories; Z68.41 Body mass index [BMI] 40.0-44.9, adult; Z99.2 Dependence on renal dialysis; Z71.3 Dietary counseling and surveillance; N32.0 Bladder-neck obstruction
CPT/HCPCS: 36415; 70450; 72125; 80048; 80076; 82962; 84484; 85025; 90937; 93005; 96361; 96372; 96374; 96375; 97161; 97165; 99218; 99285; J7030; A4216; G0257; G0378; J2405

== ENCOUNTER 2018-08-28 22:37 | Emergency (ER) | payer MEDICARE, MEDICAID, SELFPAY ==
[2018-07-15 16:02] VITALS: BMI 41.8
[2018-08-28 22:37] VITALS: BP 162/85; PULSE 97; RESP 14; TEMP 36.4; O2SAT 98; BMI 44.8
--- NOTE | 2018-08-28 23:06 | ED.VISSUMM ---
- ER Visit Summary Date of Service: 08/28/18 Chief Complaint: Pelvic pain History of Present Illness: The patient is a 43 F presenting with pelvic pain. Patient states this started around 6 PM. She tried [place] at home with no relief. She is on hemodialysis Saturday. She did complete dialysis today. She states she still makes some urine. She urinated about 30 minutes ago and states it burned when she urinated. She denies vaginal discharge or concern for STD. Denies fever. She has nausea with no vomiting. Denies diarrhea or constipation. Denies other complaints. Physical Examination: Vitals are stable. Patient is afebrile. Alert no acute distress. HEENT exam is unremarkable. Neck is supple. Lungs are clear and equal bilaterally. Heart is regular rate and rhythm. Abdomen is soft mild suprapubic tenderness with no rebound or guarding Pelvic: No discharge, no cervical motion tenderness, no adnexal tenderness Skin is warm and dry. Remainder of exam is unremarkable. Emergency Department Course and Treatment: Patient is given morphine, Zofran. CBC normal except for hemoglobin 11.3. Chemistries normal except glucose 137, BUN 43, creatinine 5.04. Urinalysis shows 10-25 white blood cells, 50-100 red blood cells, 1+ bacteria. Urine culture was sent. She was given Keflex. CT flank shows chronic bilateral moderate hydronephrosis and moderate hydroureter. Diffuse bladder wall thickening in keeping with cystitis or possibly bladder outlet obstruction. Left renal small nonobstructing stone, unchanged. Mild splenomegaly, unchanged. On reevaluation, patient is resting comfortably. She is given prescription for Keflex. Advised to follow-up with her primary care physician. Advised return to ED for worsening complaints. Disposition: Discharge home Impression: Pelvic pain, cystitis This note was generated with [employer] dictation software. It may contain incorrect words, spelling, and punctuation that were not noted in review of the chart prior to signing ED Disposition - Plan for ED Patient: Instructions: ED UTI Cystitis Female Prescriptions: Cephalexin [Keflex] 500 mg PO Q12 #14 capsule Referrals: Melvi Eastman MD [Primary Care Provider] -
[2018-08-28 23:43] LABS: Mucous, Urine 0 SEEN /hpf (<or=2+); Squamous Epithelial Cells - UA 0 SEEN /hpf (5-10)
[2018-08-28 23:59] LABS: Absolute Lymphocyte Count 0.97 X10^3/ul (0.83-4.51); Absolute Neutrophil Count 5.3 X10^3/uL (2.0-7.7); Basophil# 0.01 X10^3/uL; Basophil% 0.1 % (0-1); Eosinophil# 0.02 X10^3/uL; Eosinophils% 0.3 % (0-5); Hematocrit 32.3 % (37-47); Hemoglobin 11.3 g/dl (12.0-15.0); Lymphocyte # 0.97 X10^3/ul (4.0); Lymphocyte % 13.3 % (19-41); Mean Corpuscular Hgb 27.6 pg (27.0-32.0); Mean Corpuscular Volume 78.8 fL (81-99); Mean Platelet Vol. 8.8 fl (6.2-12.0); Monocyte# 0.99 X10^3/uL; Monocyte% 13.6 % (0-10); Neutrophil # 5.27 X10^3/uL (2.7-7.7); Neutrophil % 72.3 % (47-70); Platelet Count 179 K/mm3 (150-450); RBC Distribution Width SD 46.1 fl (35.1-43.9); White Blood Count 7.3 K/mm3 (4.4-11.0)
[2018-08-29] LABS: POSITIVE COUNT NO; POSITIVE DIFFERENTIAL NO; POSITIVE MORPHOLOGY NO
[2018-08-29 00:09] LABS: Anion Gap 10 (5-15); BUN 43 mg/dL (7-18); BUN/Creat Ratio 8.5 RATIO (10-20); Chloride 98 mmol/L (98-107); Creatinine, Serum 5.04 mg/dL (0.55-1.02); EST Glomerular Filtration Rate 10 mL/min (>60); Est Glom Filt Rate - Afr Amer 12 mL/min (>60); Estimated Creatinine Clearance 11.38 ml/min; Glucose 137 mg/dL (74-106); Potassium 4.4 mmol/L (3.5-5.1); Sodium Level 135 mmol/L (136-145)
[2018-08-29] MEDS: Morphine 4 MG/ML Syringe IV (00:09)
[2018-08-29] MEDS: Ondansetron 4 MG/2 ML Vial IV (00:09)
[2018-08-29 00:12] LABS: Color, Urine Red (Yellow)
[2018-08-29 00:13] LABS: Glucose, Dipstick 50 mg/dl (Normal); Ketone-Dipstick 5 mg/dl (Negative); Leukocyte Esterase-Dipstick 500 /ul (Negative); Nitrite-Dipstick Negative (Negative); Occult Blood-Urine 250 /ul (Negative); Protein-Dipstick 500 mg/dl (Negative); Specific Gravity, Urine 1.015 (1.002-1.030); Urine Bilirubin Dipstick Negative (Negative); Urine Clarity Turbid (Clear); Urine Urobilinogen Normal (Normal)
[2018-08-29 00:14] LABS: Red Blood Cells-Urine 50-100 SEEN /hpf (0-5)
[2018-08-29 00:15] LABS: Bacteria 1+ /hpf (None Seen); White Blood Cells 10-25 SEEN /hpf (0-5)
--- NOTE | 2018-08-29 00:19 | CT_ITS ---
HISTORY: PELVIC PAIN, UTI, STAGE 4 KIDNEY DISEASE, DIALYSIS, HX [place] EXAMINATION: CT Abdomen And Pelvis W/O Contrast TECHNIQUE: Helically acquired images were obtained of the abdomen and pelvis without oral or IV contrast as per renal stone protocol. A radiation dose optimization technique was used for this scan. IV Contrast dosage and agent: None. Oral contrast: None. COMPARISON: 02/27/[address] exams dating back to 03/19/2017 FINDINGS: Lower thorax: Left basilar mild linear fibrotic scarring. No pleural effusion or pericardial effusion. Limited non-infusion exam. Mild splenomegaly, unchanged. Normal liver, pancreas, gallbladder, and biliary system. Both kidneys are normal in position. Chronic moderate bilateral hydronephrosis and bilateral moderate hydroureter extending to the UVJ level. The kidneys show no obvious postobstructive atrophy. 6 mm calyceal stone, lower pole of the left kidney, unchanged. No ureteral stones identified. The adrenal glands are not enlarged. Abdominal aorta is normal in caliber. Small retroperitoneal lymph nodes without suspicious lymph node enlargement. No ascites. GI tract: No obstruction. Normal appendix. Pelvis: Mild diffuse thickening of the urinary bladder wall in keeping with cystitis or possibly bladder outlet obstruction. Uterus is normal in size. No free fluid or lymph node enlargement. CT/Abdomen/Pelvis without Cont IMPRESSION: 1. Chronic bilateral moderate hydronephrosis and moderate hydroureter. 2. Diffuse bladder wall thickening in keeping with cystitis or possibly bladder outlet obstruction. 3. Left renal small nonobstructing stone, unchanged. 4. Mild splenomegaly, unchanged. Individualized dose optimization techniques were used for this CT. at 0205 Reported and signed by: Con Angeles MD Electronically Signed: Con Angeles, at 2:04 EDT Tel , Service support ,
[2018-08-29 00:53] VITALS: PULSE 78; RESP 16; O2SAT 98
--- NOTE | 2018-08-29 02:33 | ED.DEP ---
ED Disposition - Plan for ED Patient: Instructions: ED UTI Cystitis Female Prescriptions: Cephalexin [Keflex] 500 mg PO Q12 #14 capsule Referrals: Melvi Eatsman MD [Primary Care Provider] -
[2018-08-29] MEDS: Cephalexin 250 MG Capsule 500 MG PO (02:37)
[2018-08-29 02:41] VITALS: BP 156/48; PULSE 82; RESP 14
== END 2018-08-29 02:42 | disposition home or self-care (01) ==
PROVIDERS: Emergency Provider Emergency Medicine; Family Provider Internal Medicine; PCP Internal Medicine
DX: N30.90 Cystitis, unspecified without hematuria (principal); R10.2 Pelvic and perineal pain; N13.2 Hydronephrosis with renal and ureteral calculous obstruction; R16.1 Splenomegaly, not elsewhere classified; E11.22 Type 2 diabetes mellitus with diabetic chronic kidney disease; N18.6 End stage renal disease; Z99.2 Dependence on renal dialysis; Z79.82 Long term (current) use of aspirin; Z79.4 Long term (current) use of insulin; Z79.899 Other long term (current) drug therapy
CPT/HCPCS: 74176; 80048; 81001; 85025; 87086; 96374; 96375; 99284; A4216; J2405

== ENCOUNTER 2018-09-22 20:12 | Observation (INO) | payer MEDICARE, MEDICAID, SELFPAY ==
[2018-09-22 20:13] VITALS: BP 113/87; PULSE 89; RESP 22; TEMP 36.6; O2SAT 100; BMI 46.4
--- NOTE | 2018-09-22 20:57 | EKG12_ITS ---
Test Reason : Blood Pressure : / mmHG Vent. Rate : 078 BPM Atrial Rate : 078 BPM P-R Int : 172 ms QRS Dur : 116 ms QT Int : 414 ms P-R-T Axes : 030 021 063 degrees QTc Int : 471 ms Normal sinus rhythm Low voltage QRS Incomplete left bundle branch block Borderline ECG Confirmed by DELORIS VINES, BETSY ([id number]), avid editor ROSA M BURROWS ([id number]) on 09/24/2018 8:03:07 AM Referred By: Marcia Estrada Confirmed By:BETSY PUENTES MD
--- NOTE | 2018-09-22 21:01 | RAD_ITS ---
STUDY: X-RAY CHEST REASON FOR EXAM: Female, 43 years old. Fall. TECHNIQUE: Single frontal view of the chest. COMPARISON: May 21, 2014 FINDINGS: There are linear opacities within the left mid and lower lung. There is a dialysis catheter in place terminating within the superior vena cava. Normal size heart. Normal mediastinum and anita. Normal visualized pulmonary arteries. Normal visualized aortic arch and descending thoracic aorta. Normal visualized thoracic spine. Normal visualized ribs, clavicles, and shoulders. There is no demonstrated abnormality of the visualized soft tissue structures of the upper abdomen. RAD/Chest 1 View (Portable) IMPRESSION: Indeterminate linear opacities within the left mid and lower lungs, these may be on the patient however cannot exclude minimal atelectasis. Electronically Signed: Abi De Leon MD at 21:22 EDT Tel , Service support ,
[2018-09-22 21:24] LABS: Absolute Lymphocyte Count 0.89 X10^3/ul (0.83-4.51); Absolute Neutrophil Count 4.5 X10^3/uL (2.0-7.7); Basophil# 0.01 X10^3/uL; Basophil% 0.2 % (0-1); Hematocrit 30.3 % (37-47); Hemoglobin 10.7 g/dl (12.0-15.0); Lymphocyte # 0.89 X10^3/ul (4.0); Lymphocyte % 14.5 % (19-41); Mean Corp Hgb Conc 35.3 g/gl (32-36); Mean Corpuscular Hgb 28.6 pg (27.0-32.0); Mean Platelet Vol. 8.5 fl (6.2-12.0); Monocyte# 0.71 X10^3/uL; Monocyte% 11.5 % (0-10); Neutrophil # 4.52 X10^3/uL (2.7-7.7); Neutrophil % 73.5 % (47-70); POSITIVE COUNT NO; POSITIVE DIFFERENTIAL NO; POSITIVE MORPHOLOGY NO; Platelet Count 174 K/mm3 (150-450); RBC Distribution Width CV 14.5 % (11.6-14.6); RBC Distribution Width SD 40.9 fl (35.1-43.9); Red Blood Count 3.74 M/mm3 (4.2-5.4); White Blood Count 6.2 K/mm3 (4.4-11.0)
[2018-09-22 21:55] LABS: Anion Gap 11 (5-15); BUN 80 mg/dL (7-18); BUN/Creat Ratio 9.7 RATIO (10-20); Calcium,Total 9.2 mg/dL (8.5-10.1); Chloride 95 mmol/L (98-107); Creatinine, Serum 8.23 mg/dL (0.55-1.02); EST Glomerular Filtration Rate 6 mL/min (>60); Est Glom Filt Rate - Afr Amer 7 mL/min (>60); Estimated Creatinine Clearance 6.97 ml/min; Glucose 106 mg/dL (74-106); Potassium 5.6 mmol/L (3.5-5.1); Sodium Level 130 mmol/L (136-145)
--- NOTE | 2018-09-22 21:56 | ED.RN ---
CRITICAL LAB VALUE CREATININE WAS 8.23 MADE AWARE.
[2018-09-22 22:06] LABS: CPK Total, Creatine Kinase 87 U/L (26-192)
--- NOTE | 2018-09-22 23:08 | PCM.HP.STD ---
Problem List (1) Lower extremity weakness Status: Acute Qualifiers: Laterality: bilateral Qualified Code(s): R29.898 - Other symptoms and signs involving the musculoskeletal system (2) ESRD (end stage renal disease) Status: Chronic (3) Morbid obesity Status: Chronic (4) HTN (hypertension) Status: Chronic Qualifiers: Hypertension type: essential hypertension Qualified Code(s): I10 - Essential (primary) hypertension (5) Iron deficiency anemia Status: Chronic Qualifiers: Iron deficiency anemia type: unspecified iron deficiency Qualified Code(s): D50.9 - Iron deficiency anemia, unspecified (6) Type II diabetes mellitus Status: Chronic Qualifiers: Diabetes mellitus terminal clerk insulin use: unspecified senior care insulin use status Diabetes mellitus complication status: with unspecified complications (7) Coronary artery disease Status: Chronic Qualifiers: Coronary Disease-Associated Artery/Lesion type: unspecified vessel or lesion type [place] vs. transplanted heart: unspecified whether [place] or transplanted heart Associated angina: angina presence unspecified Qualified Code(s): I25.10 - Atherosclerotic heart disease of [place] coronary artery without angina pectoris (8) Chronic low back pain Status: Chronic Qualifiers: Back pain laterality: unspecified Sciatica presence: unspecified whether sciatica present Qualified Code(s): M54.5 - Low back pain; G89.29 - Other chronic pain History of Present Illness Date of Admission: 09/22/18 Chief Complaint: Weakness, debility, frequent falls The patient is a 43 y/o F w/ PMHx: Morbid Obesity, History of 03/2017 BL Obstructive Uropathy/calculi w/ BL stent placements and removal w/ Diabetic Neurogenic Bladder w/ eventual ESRD on HD w/ currently port awaiting AVF creation/maturation following w/ Dr. Odonnell, HTN, HLD, Chronic back pain, CAD s/p PCI x 1, Diabetes mellitus type II who presents to the [facility] ED on 09/22/18 with history of sudden onset of bilateral lower extremity specifically below the knee weakness as well as mildly worsened paresthesias acute on chronic with resulting increased falls x 1 week. She does note that she occasionally has spasming of her legs and extremities which is alert during these episodes with no loss of bowel or bladder. Work-up in the ED included T 97.8, heart rate 89, BP 113/87, respiratory rate 22, 100% on room air, CBC with WBC 6.2, hemoglobin 10.7, platelet 174 without market shift, BMP with sodium 130, potassium 5.6, chloride 95, BUN/Cr 80/8.23, glucose 106, total creatinine kinase 87, troponin < 0.015, EKG w/ SR without acute evidence of ischemia, chest x-ray with indeterminate letter opacities left mid and lower lungs possibly secondary to atelectasis. In the ED patient administered normal saline 500 cc bolus and Kayexalate 30 g p.o. x1. Past Medical History Past Medical History (Chronic Problems): Chronic Problems (Last Updated 07/16/18 @ 12:35 by Andria Still MD) ESRD (end stage renal disease) (Chronic) Chronic renal failure, stage 4 (severe) (Chronic) Morbid obesity (Chronic) HTN (hypertension) (Chronic) Bilateral hydronephrosis (Chronic) Iron deficiency anemia (Chronic) Type II diabetes mellitus (Chronic) Coronary artery disease (Chronic) Chronic low back pain (Chronic) Hydroureter (Chronic) Bladder outlet obstruction (Chronic) Medical History: Medical History (Last Updated 07/16/18 @ 12:35 by Andria Still MD) Chronic renal failure, stage 4 (severe) (Chronic) N18.4 Anemia D64.9 Anxiety and depression F41.8 Back problem M53.9 Carpal tunnel syndrome G56.00 Diabetes type 2, controlled E11.9 H/O nephrolithotomy with removal of calculi Z98.890, Z87.442 H/O transfusion of whole blood Z92.89 Headache R51 Heart disease I51.9 Hives L50.9 Kidney disease N28.9 Kidney failure N19 Kidney stone N20.0 Neuropathy G62.9 Recurrent infections B99.9 Seasonal allergies J30.2 UTI (urinary tract infection) N39.0 Vitamin deficiency E56.9 HTN (hypertension) I10 Allergies ciprofloxacin [From Cipro] Adverse Reaction (Verified 08/28/18 22:40) Vomiting contrast dye Allergy (Severe, Uncoded 08/28/18 22:40) Anaphylaxis Home Medications: Ambulatory Orders Medication Instructions Recorded Ergocalciferol [Vitamin D] 50,000 unit PO WE 04/18/17 Hydrocodone/Acetaminophen [[place]apello 1 ea PO Q6H PRN PRN 02/28/18 5-325 Tablet] Venlafaxine XR [Effexor Xr] 150 mg PO DAILY 02/28/18 Aspirin E.C. [Ecotrin] 81 mg PO DAILY@0800 07/15/18 Nortriptyline HCl [Pamelor] 50 mg PO QHS 07/15/18 Pregabalin [Lyrica] 50 mg PO BID 07/15/18 Bupropion HCl [Bupropion Xl] 300 mg PO DAILY 09/22/18 Surgical History: Surgical History (Last Reviewed 05/05/18 @ 10:37 by Catherine Barboza) H/O heart artery stent Z95.5 History of carpal tunnel surgery Z92.89 Presence of surgically created arteriovenous shunt for hemodialysis Z99.2 Surgical History: - - PCI, bilateral ureteral stent placements and removal, AVF creation, tunnel intervention, port placement. 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 Paternal History Items: Unknown - Patient was adopted and she does not know her family of origin to be able to provide any family medical history. Review of Systems Constitutional: Reports: Malaise, Weakness, Fatigue. Denies: Chills, Fever, Weight Change HEENT: Denies: Head Aches, Sinus Congestion, Sinus Drainage Cardiovascular: Denies: Chest Pain, Palpitations Respiratory: Denies: Cough, Shortness of breath at rest, Sputum production Gastrointestinal: Denies: Abdominal Pain, Nausea, Vomiting Genitourinary: Denies: Dysuria Musculoskeletal: Reports: Leg Pain. Denies: Joint Pain, Joint Tenderness Skin: Denies: Rash, Wounds Neurological: Reports: Focal weakness, Numbness, Tingling Psychiatric: Reports: Anxiety, Depression. Denies: Homicidal Ideations, Suicidal Ideations Hematologic/ Lymphatic: Reports: Anemia. Denies: Easy Bruising, Easy Bleeding VTE Information - Inpt Only VTE Present on Admission: No VTE Mechan Device Prophylaxis: SCD's VTE Pharm Prophylaxis ordered?: Yes Patient Problems: Active and Suspected Problems (Last Updated 07/16/18 @ 12:35 by Andria Still MD) Lower extremity weakness (Acute) Subjective: Seated upright in the ED bed, fatigued appearing, NAD, declined to attempt standing as notes her legs are so weak they given out. Objective: Physical Examination: General: awake, alert, oriented x 3 and cooperative, seated upright in the ED bed, NAD, fatigued appearance. Skin: normal color, turgor, no icterus, cyanosis. HEENT: AT/NC, EOMI, PERRLA, mildly dry MM, no carotid bruits or JVD noted. Lungs: CTA bilaterally, moderate effort, moderate decrease BL bases, no rales, ronchi or wheezing. Heart: Regular rate and rhythm; no gallop, rub audible. Abdomen: soft, morbidly obese, NTTP, ND, normal BS, no HSM; however, habitus makes examination difficult. Extremities: no cyanosis, clubbing, or edema, notes worsened above prior baseline paresthesias to BL LE, RUE w/ initiation of AVF. Neurological: patient awake, alert, oriented x 3; cognitive function intact; pupils equally reactive to light and accomodation; cranial nerves II-XII grossly normal, moving all 4 extremities including able to lift and hold BL LE and strength 4/5 BL LE, no specific focal deficits, generalized weakness, normal reflexes, strength moderately to severely globally decreased. Psychiatric: affect appears fatigued, no acute evidence of depressive or anxiety feelings. - Physical Exam Vital Signs Temp Pulse Resp BP Pulse Ox 97.8 F 89 22 H 113/87 H 100 09/22/18 20:13 09/22/18 20:13 09/22/18 20:13 09/22/18 20:13 09/22/18 20:13 Oxygen Delivery Method Room Air Weight: 253 lb 12.033 oz Body Mass Index (BMI) 46.4 Finger Stick Blood Glucose 98 Laboratory Tests Past 24 Hrs 09/22/18 09/22/18 09/22/18 21:17 21:17 21:17 WBC 6.2 RBC 3.74 L Hgb 10.7 L Hct 30.3 L MCV 81.0 MCH 28.6 MCHC 35.3 RDW 14.5 RDW Differential 40.9 Plt Count 174 MPV 8.5 Immature Gran % (Auto) 0.300 Neut % (Auto) 73.5 H Lymph % (Auto) 14.5 L Dickey % (Auto) 11.5 H Eos % (Auto) 0.0 Baso % (Auto) 0.2 Absolute Neuts (auto) 4.5 Absolute Lymphs (auto) 0.89 Total Counted Not Reportable Sodium 130 L Potassium 5.6 H Chloride 95 L Carbon Dioxide 24.0 Anion Gap 11 BUN 80 H Creatinine 8.23 H* Estim Creat Clear Calc 6.97 Est GFR (MDRD) Af Amer 7 L Est GFR (MDRD) Non-Af 6 L BUN/Creatinine Ratio 9.7 L Glucose 106 Calcium 9.2 Total Creatine Kinase 87 Troponin I < 0.015 Assessment/Plan All Active Problems (Last Updated 07/16/18 @ 12:35 by Andria Still MD) Lower extremity weakness (Acute) Syncope (Acute) Orthostatic hypotension (Acute) The patient is a 43 y/o F w/ PMHx: Morbid Obesity, History of 03/2017 BL Obstructive Uropathy/calculi w/ BL stent placements and removal w/ Diabetic Neurogenic Bladder w/ eventual ESRD on HD w/ currently port awaiting AVF creation/maturation following w/ Dr. Odonnell, HTN, HLD, Chronic back pain, CAD s/p PCI x 1, Diabetes mellitus type II who presents to the [facility] ED on 09/22/18 with history of sudden onset of bilateral lower extremity specifically below the knee weakness as well as mildly worsened paresthesias acute on chronic with resulting increased falls x 1 week. (1) Acute Lower Extremity Weakness w/ Acute on Chronic Worsened Paresthesias, Neuropathy: Will admit to [facility], maintain on fall precautions, PRN pain regimen, obtain MRI thoracic and lumbar spine without contrast, CK not elevated, will obtain UDS, EtOH level, PT/OT evaluation and treatment, obtain Neuropathy labs including ESR, PRACHI, SPEP, Neurology consulted, pending, if work-up unremarkable consider outpatient EMG/NCV. Additionally, will obtain BARBARA/PVRs. (2) Hyperkalemia: Admission K 5.6, EKG not marked appearing, ED administration kayexelate, will repeat AM BMP, also pending HD as noted. (3) History of 03/2017 BL Obstructive Uropathy/calculi w/ BL stent placements and removal w/ Diabetic Neurogenic Bladder w/ eventual ESRD on HD: Patient following w/ Nephrology Betty Odonnell, will continue HD regimen w/ consultation pending, following also with Dr. Cebul for AVF creation, currently using port. (4) CAD: s/p PCI remotely, continue home regimen asa, not on statin, not on BB. Given elevated BP consider addition BB. (5) Diabetes mellitus type II: Not on regimen, nutrition consulted for education and teaching, accu checks w/ ISS. (6) Hypertension: BP elevated, not on regimen which has been similar to prior presentations, PRN hydralazine in interim, benefit from consideration addition BB especially given CAD history. (7) Morbid Obesity: Weight loss and lifestyle changes encouraged, nutrition consulted. (8) Fe Deficiency Anemia/AOCD: Admission Hgb 10.7, improved from prior, recent range 9-11, stable, repeat CBC in AM. (9) Anxiety and Depression: Continue home bupropion, venlafaxine regimen. (10) DVT Prophylaxis: SCDs, heparin. Code Visit OBSV E&M: 77902 Initial observation care L3
--- NOTE | 2018-09-22 23:18 | ED.RN ---
DRESSING ON LEFT PINKY FINGER CHANGED. PER PT WOUND IS INITIALLY FROM HANGNAIL. NOW ENTIRE FINGERNAIL IS REMOVED AND NAIL BED APPEARS NECROTIC.
[2018-09-22 23:21] VITALS: BP 152/104; O2SAT 98
[2018-09-23] VITALS (11 sets, daily range): BP systolic 100–155; BP diastolic 51–98; PULSE 68–89; RESP 16–20; TEMP 36.3–36.7; O2SAT 95–100; BMI 45.1
--- NOTE | 2018-09-23 00:11 | ED.RN ---
DR SANTANA AWARE OF HEART RHYTHM
--- NOTE | 2018-09-23 00:34 | ED.DCSUM_ITS ---
- ER Visit Summary Date of Service: 09/23/18 Chief Complaint: Generalized weakness History of Present Illness: The patient is a 43 F presenting with generalized weakness. She states that she has had bilateral leg and arm weakness for the past week. This has caused her to fall multiple times. She went to a postoperative appointment in [place] today with her vascular surgeon. She states the vascular surgeon felt that her symptoms may be related to low blood pressure. She states she has fallen multiple times. She denies injury. She fell today and had difficulty getting up and ambulating. Denies chest pain or shortness of breath. Denies fever. Denies other complaints. Physical Examination: Vitals are stable. Patient is afebrile. Alert no acute distress. HEENT exam is unremarkable. Neck is supple. Lungs are clear and equal bilaterally. Heart is regular rate and rhythm. Abdomen is soft nontender nondistended. Extremities are unremarkable. Skin is warm and dry. No focal neurologic deficit. Normal strength and sensation bilaterally. Remainder of exam is unremarkable. Emergency Department Course and Treatment: EKG is sinus rate of 78 with no acute ischemic changes. Chest x-ray shows indeterminate linear opacities within the left mid and lower lungs, these may be on the patient however cannot exclude minimal atelectasis. CBC normal except hemoglobin 10.7. Chemistries show sodium 130, potassium 5.6, BUN 80, creatinine 8.23. Troponin is negative. Patient will have dialysis today. She was given Kayexalate. Discussed with the hospitalist for admission. Disposition: Admission Impression: Generalized weakness, debility This note was generated with [employer] dictation software. It may contain incorrect words, spelling, and punctuation that were not noted in review of the chart prior to signing
--- NOTE | 2018-09-23 00:47 | ED.RN ---
PHARMACIST CONTACTED FOR KAYEXOLATE. NONE IN ACCUDOSE.
[2018-09-23] MEDS: Sodium Polystyrene Sulfonate 15 GM/60 ML UDC 30 GM PO (00:54)
--- NOTE | 2018-09-23 01:29 | MRI_ITS ---
STUDY: MRI THORACIC SPINE WITHOUT CONTRAST REASON FOR EXAM: Female, 43 years old. Cord compression, bilateral lower extremity weakness. TECHNIQUE: Standardized fat and water weighted pulse sequences were obtained in the sagittal and axial planes. COMPARISON: None. FINDINGS: Normal kyphosis of the thoracic spine. There is no substantial scoliosis. T1-2, T2-3, T3-4, T4-5, T5-6, T6-7, T7-8, T8-9, T9-10, T10-11, T11-12: Normal endplates. Normal disc hydration, heights and morphology of the corresponding intervertebral discs. Normal central canal and intervertebral neural foramina at the corresponding levels. Normal visualized thoracic cord. Normal conus medullaris that terminates at the . The soft tissue structures are unremarkable. Bilateral partially viewed large renal central cysts are present. MRI/Spine Thoracic (Routine) IMPRESSION: No evidence of significant disc space and degenerative change, disc bulge or spinal canal narrowing. Bilateral renal cysts as above, further evaluation may be obtained with dedicated renal ultrasound. Electronically Signed: Franklin Snow DO at 10:29 EDT , Service support ,
--- NOTE | 2018-09-23 01:29 | ART_ITS ---
Reason For Study: weakness, parasthesia Left Segmental Pressures Left posterior tibial artery = 243mmHg. Left dorsalis pedis artery = 236mmHg. Left digit = 143 mmHg. Left Brachial was noncompressible. The left dorsalis pedis waveforms are triphasic. The left posterior tibial artery waveforms are biphasic. Right Segmental Pressures Right posterior tibial artery = 152mmHg. Right digit = 120 mmHg. No RUE BP due to fistula. DPA is noncompressible. The right posterior tibial artery waveforms are biphasic. The right dorsalis pedis waveforms are triphasic. Interpretation Summary Biphasic and triphasic Doppler waveforms are noted at ankle level bilaterally. Pulse-volume recording waveform amplitudes appear satisfactory at ankle and digital levels bilaterally. Resting ankle-brachial indices and digital-brachial indices could not be determined on either side due to the non-compressibility of the vasculature in the left upper extremity, which is necessary for such calculations. There is no evidence of significant arterial occlusive disease in the lower extremities, though there is evidence of arterial calcification at multiple levels. Clinical correlation is advised. Ordering Physician: Marcia Estrada Referring Physician: Marcia Estarda Performed By: REGINE LEIJA RVT
--- NOTE | 2018-09-23 01:29 | MRI_ITS ---
STUDY: MRI LUMBAR SPINE WITHOUT CONTRAST REASON FOR EXAM: Female, 43 years old. TECHNIQUE: Standardized fat and water weighted pulse sequences were obtained in the sagittal and axial planes. COMPARISON: None FINDINGS: T12-L1: Normal endplates. Normal disc height, hydration and morphology. Normal bilateral facet joints. Normal central canal and bilateral lateral recesses. Normal bilateral intervertebral neural foramina. Normal lumbar lordosis. There is no substantial scoliosis. Normal conus medullaris that terminates at the L1 level. L1-2: Normal endplates. Normal disc height, hydration and morphology. Normal bilateral facet joints. Normal central canal and bilateral lateral recesses. Normal bilateral intervertebral neural foramina. L2-3: Normal endplates. Normal disc height, hydration and morphology. Normal bilateral facet joints. Normal central canal and bilateral lateral recesses. Normal bilateral intervertebral neural foramina. L3-4: Normal endplates. Normal disc height, hydration and morphology. Normal bilateral facet joints. Normal central canal and bilateral lateral recesses. Normal bilateral intervertebral neural foramina. L4-5: Normal endplates. Normal disc height, hydration and morphology. Normal bilateral facet joints. Normal central canal and bilateral lateral recesses. Normal bilateral intervertebral neural foramina. L5-S1: Minimal disc desiccation with preserved disc space with mild broad-based disc bulge. No significant spinal canal narrowing. There is mild bilateral foraminal narrowing present. Normal visualized sacral ala. Bilateral renal hydronephrosis and dilatation of the ureters are present. MRI/Spine Lumbar (Routine) IMPRESSION: L5/S1 with mild bilateral foraminal narrowing as above. There is bilateral moderate to severe renal hydronephrosis concerning for distal ureteral obstruction, clinically correlate. Electronically Signed: Franklin Snow DO at 10:32 EDT , Service support ,
[2018-09-23] MEDS: 0.9% Normal Saline 1,000 ML 100 ML IV ×3 (01:50→19:49)
[2018-09-23] MEDS: HYDROcodone Bitartrate/Apap 5/325 Tablet PO (02:23)
[2018-09-23 02:30] LABS: CPK Total, Creatine Kinase 87 U/L (26-192); Magnesium 2.6 mg/dL (1.6-2.6); Phosphorus 9.5 mg/dL (2.5-4.9); Thyroid Stim Hormone (TSH) 3.15 uIU/mL (0.358-3.74)
[2018-09-23 06:25] LABS: Absolute Lymphocyte Count 0.82 X10^3/ul (0.83-4.51); Absolute Neutrophil Count 4.2 X10^3/uL (2.0-7.7); Basophil# 0.01 X10^3/uL; Basophil% 0.2 % (0-1); Hemoglobin 9.6 g/dl (12.0-15.0); Lymphocyte # 0.82 X10^3/ul (4.0); Lymphocyte % 13.9 % (19-41); Mean Corp Hgb Conc 34.3 g/gl (32-36); Mean Corpuscular Hgb 28.2 pg (27.0-32.0); Mean Corpuscular Volume 82.1 fL (81-99); Mean Platelet Vol. 8.9 fl (6.2-12.0); Monocyte# 0.83 X10^3/uL; Monocyte% 14.1 % (0-10); Neutrophil # 4.18 X10^3/uL (2.7-7.7); Platelet Count 156 K/mm3 (150-450); RBC Distribution Width CV 14.3 % (11.6-14.6); RBC Distribution Width SD 41.4 fl (35.1-43.9); Red Blood Count 3.41 M/mm3 (4.2-5.4); White Blood Count 5.9 K/mm3 (4.4-11.0)
[2018-09-23 06:28] LABS: POSITIVE COUNT NO; POSITIVE DIFFERENTIAL NO; POSITIVE MORPHOLOGY NO
[2018-09-23 06:35] LABS: Erythrocyte Sedimentation Rate 44 mm/hr (0-20)
[2018-09-23 06:56] LABS: ALB/GLOB Ratio 0.9 RATIO (0.9-2.4); AST(SGOT) 11 U/L (15-37); Alanine Aminotransfer ALT/SGPT 8 U/L (13-56); Albumin, Serum 3.1 g/dL (3.2-5.0); Alkaline Phosphatase 136 U/L (45-117); Anion Gap 13 (5-15); BUN 80 mg/dL (7-18); BUN/Creat Ratio 9.9 RATIO (10-20); Calcium,Total 8.2 mg/dL (8.5-10.1); Chloride 99 mmol/L (98-107); Creatinine, Serum 8.12 mg/dL (0.55-1.02); EST Glomerular Filtration Rate 6 mL/min (>60); Est Glom Filt Rate - Afr Amer 7 mL/min (>60); Estimated Creatinine Clearance 7.07 ml/min; Globulin 3.6 g/dL (2.2-4.2); Glucose 114 mg/dL (74-106); Potassium 4.8 mmol/L (3.5-5.1); Protein, Total 6.7 g/dL (6.4-8.2); Sodium Level 133 mmol/L (136-145)
[2018-09-23 07:00] LABS: Bedside Glucose 129 mg/dL (70-110)
--- NOTE | 2018-09-23 08:37 | NURSING ---
Pt being transported to MRI at this time
--- NOTE | 2018-09-23 09:32 | PCA ---
pt off floor
--- NOTE | 2018-09-23 10:06 | CASEMGMT ---
RN CM Assessment Presentation: Acute LE weakness, Paresthesias, neuropathy. Neurology consult. Intro role of CM and purpose of RN CM assessment to patient in room. She is awake, alert and able t participate in assessment. Demographics, PCP and Pharmacy verified. Pt states she was generally independent prior to weakness in extremities. States now she has had falls and was unable to get herself up. Has concerns re: returning home if weakness continues. PCP: Dr. Eastman Specialists: Dr. Betty Odonnell, Nephrology, Dr. Parker, neurology Dialysis: [facility], 6: 15. Pt uses [employer] for transportation. Preferred Pharmacy: [facility] Insurance: [employer] [place] Prescription Benefit: yes LNOK: Veronica Malik, Mother Living Arrangements: Lives independently in apartment, no stairs. Was independent prior to weakness with ADL's, cooking, cleaning. Transportation: [facility] for Dialysis, family for other DME: cane. No preference for DME provider if needed. HHC: none Patient DC goals: Home DC PLAN: undetermined. PT/OT evaluations pending. Haleigh LU RN ACM.
--- NOTE | 2018-09-23 10:28 | PCM.CONS.GEN ---
Reason for Consult Date of Consultation: 09/23/18 Reason for Consultation: SYNCOPE History of Present Illness: The patient is a 43 year old F presents after multiple falls, reports legs become like jelly and has had loc. symptoms started about one week ago, 6-7 total associated with injury. sympotms only when standing. PER admit note:The patient is a 43 y/o F w/ PMHx: Morbid Obesity, History of 03/2017 BL Obstructive Uropathy/calculi w/ BL stent placements and removal w/ Diabetic Neurogenic Bladder w/ eventual ESRD on HD w/ currently port awaiting AVF creation/maturation following w/ Dr. Odonnell, HTN, HLD, Chronic back pain, CAD s/p PCI x 1, Diabetes mellitus type II who presents to the [facility] ED on 09/22/18 with history of sudden onset of bilateral lower extremity specifically below the knee weakness as well as mildly worsened paresthesias acute on chronic with resulting increased falls x 1 week. She does note that she occasionally has spasming of her legs and extremities which is alert during these episodes with no loss of bowel or bladder. Work-up in the ED included T 97.8, heart rate 89, BP 113/87, respiratory rate 22, 100% on room air, CBC with WBC 6.2, hemoglobin 10.7, platelet 174 without market shift, BMP with sodium 130, potassium 5.6, chloride 95, BUN/Cr 80/8.23, glucose 106, total creatinine kinase 87, troponin < 0.015, EKG w/ SR without acute evidence of ischemia, chest x-ray with indeterminate letter opacities left mid and lower lungs possibly secondary to atelectasis. In the ED patient administered normal saline 500 cc bolus and Kayexalate 30 g p.o. x1. Past Medical History Past Medical History (Chronic Problems): Chronic Problems (Last Reviewed 09/23/18 @ 10:30 by Fahad Parker MD) ESRD (end stage renal disease) (Chronic) Chronic renal failure, stage 4 (severe) (Chronic) Morbid obesity (Chronic) HTN (hypertension) (Chronic) Bilateral hydronephrosis (Chronic) Iron deficiency anemia (Chronic) Type II diabetes mellitus (Chronic) Coronary artery disease (Chronic) Chronic low back pain (Chronic) Hydroureter (Chronic) Bladder outlet obstruction (Chronic) Medical History: Medical History (Last Reviewed 09/23/18 @ 10:30 by Fahad Parker MD) Chronic renal failure, stage 4 (severe) (Chronic) N18.4 Anemia D64.9 Anxiety and depression F41.8 Back problem M53.9 Carpal tunnel syndrome G56.00 Diabetes type 2, controlled E11.9 H/O nephrolithotomy with removal of calculi Z98.890, Z87.442 H/O transfusion of whole blood Z92.89 Headache R51 Heart disease I51.9 Hives L50.9 Kidney disease N28.9 Kidney failure N19 Kidney stone N20.0 Neuropathy G62.9 Recurrent infections B99.9 Seasonal allergies J30.2 UTI (urinary tract infection) N39.0 Vitamin deficiency E56.9 HTN (hypertension) I10 Allergies ciprofloxacin [From Cipro] Adverse Reaction (Verified 08/28/18 22:40) Vomiting contrast dye Allergy (Severe, Uncoded 08/28/18 22:40) Anaphylaxis Home Medications: Ambulatory Orders Medication Instructions Recorded Ergocalciferol [Vitamin D] 50,000 unit PO WE 04/18/17 Hydrocodone/Acetaminophen [Lebeau 1 ea PO Q6H PRN PRN 02/28/18 5-325 Tablet] Venlafaxine XR [Effexor Xr] 150 mg PO DAILY 02/28/18 Aspirin E.C. [Ecotrin] 81 mg PO DAILY@0800 07/15/18 Nortriptyline HCl [Pamelor] 50 mg PO QHS 07/15/18 Pregabalin [Lyrica] 50 mg PO BID 07/15/18 Bupropion HCl [Bupropion Xl] 300 mg PO DAILY 09/22/18 Surgical History: Surgical History (Last Reviewed 09/23/18 @ 10:30 by Fahad Parker MD) H/O heart artery stent Z95.5 History of carpal tunnel surgery Z92.89 Presence of surgically created arteriovenous shunt for hemodialysis Z99.2 Surgical History: - - PCI, bilateral ureteral stent placements and removal, AVF creation, tunnel intervention, port placement. 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 Paternal History Items: Unknown - Patient was adopted and she does not know her family of origin to be able to provide any family medical history. Review of Systems Neurological: Denies: Numbness, Tingling, Focal weakness Patient Problems: Active and Suspected Problems (Last Reviewed 09/23/18 @ 10:30 by Fahad Parker MD) Lower extremity weakness (Acute) - Physical Exam General: Alert, Oriented x3, Cooperative, No apparent distress HEENT: Atraumatic, PERRLA, EOMI, Normocephalic Neurological: Cranial nerves II-XII grossly intact, Deep Tendon Reflexes 2+/4 and Symmetrical, Neuro grossly intact, Motor Exam 5/5 strength throughout Psych/Mental Status: Normal Affect, Alert and oriented to time, place, person, mood and affect Vital Signs Temp Pulse Resp BP Pulse Ox 36.4 C L 69 16 114/98 H 97 09/23/18 05:41 09/23/18 07:54 09/23/18 05:41 09/23/18 05:41 09/23/18 07:45 Oxygen Delivery Method Room Air Weight: 111.8 kg Body Mass Index (BMI) 45.1 Finger Stick Blood Glucose 98 Intake and Output for Last 24 Hours 09/21/18 09/22/18 09/23/18 23:59 23:59 23:59 Intake Total 1006 / 1006 Balance 1006 / 1006 Laboratory Tests Past 24 Hrs 09/22/18 09/22/18 09/22/18 21:17 21:17 21:17 WBC 6.2 RBC 3.74 L Hgb 10.7 L Hct 30.3 L MCV 81.0 MCH 28.6 MCHC 35.3 RDW 14.5 RDW Differential 40.9 Plt Count 174 MPV 8.5 Immature Gran % (Auto) 0.300 Neut % (Auto) 73.5 H Lymph % (Auto) 14.5 L [place] % (Auto) 11.5 H Eos % (Auto) 0.0 Baso % (Auto) 0.2 Absolute Neuts (auto) 4.5 Absolute Lymphs (auto) 0.89 Total Counted Not Reportable ESR Sodium 130 L Potassium 5.6 H Chloride 95 L Carbon Dioxide 24.0 Anion Gap 11 BUN 80 H Creatinine 8.23 H* Estim Creat Clear Calc 6.97 Est GFR (MDRD) Af Amer 7 L Est GFR (MDRD) Non-Af 6 L BUN/Creatinine Ratio 9.7 L Glucose 106 Calcium 9.2 Phosphorus Magnesium Total Bilirubin AST ALT Alkaline Phosphatase Total Creatine Kinase 87 Troponin I < 0.015 Total Protein Total Protein (PEP) Albumin Globulin Albumin/Globulin Ratio TSH Ethyl Alcohol IgG IgA IgM Albumin ([place]) Albumin/Globulin ([place]) Bxoth-9-Fagxavqkd [place] Tycyb-3-Zzqsbnrxr [place] Beta-Globulins ([place]) Gamma Globulins ([place]) [place] M-Wagner PRACHI Screen JAKY-1 Antibody SS-A/Ro IgG Antibody SS-B/La IgG Antibody Sm (Ayala) Antibody CASE MANAGEMENT COORDINATOR Antibody Scl-70 Scleroderma Ab Double Strand DNA Ab Centromere B Antibody 09/22/18 09/22/18 09/23/18 21:17 21:17 05:40 WBC RBC Hgb Hct MCV MCH MCHC RDW RDW Differential Plt Count MPV Immature Gran % (Auto) Neut % (Auto) Lymph % (Auto) [place] % (Auto) Eos % (Auto) Baso % (Auto) Absolute Neuts (auto) Absolute Lymphs (auto) Total Counted ESR Sodium Potassium Chloride Carbon Dioxide Anion Gap BUN Creatinine Estim Creat Clear Calc Est GFR (MDRD) Af Amer Est GFR (MDRD) Non-Af BUN/Creatinine Ratio Glucose Calcium Phosphorus 9.5 H* Magnesium 2.6 Total Bilirubin AST ALT Alkaline Phosphatase Total Creatine Kinase 87 Troponin I Total Protein Total Protein (PEP) Albumin Globulin Albumin/Globulin Ratio TSH 3.15 Ethyl Alcohol 9.0 IgG IgA IgM Albumin ([place]) Albumin/Globulin ([place]) Nchty-0-Xybmyjqtb [place] Gtsnu-4-Mfigbzhfi [place] Beta-Globulins ([place]) Gamma Globulins ([place]) [place] M-Wagner PRACHI Screen Pending JAKY-1 Antibody Pending SS-A/Ro IgG Antibody Pending SS-B/La IgG Antibody Pending Sm (Ayala) Antibody Pending CASE MANAGEMENT COORDINATOR Antibody Pending Scl-70 Scleroderma Ab Pending Double Strand DNA Ab Pending Centromere B Antibody Pending 09/23/18 09/23/18 09/23/18 05:40 05:40 05:40 WBC 5.9 RBC 3.41 L Hgb 9.6 L Hct 28.0 L MCV 82.1 MCH 28.2 MCHC 34.3 RDW 14.3 RDW Differential 41.4 Plt Count 156 MPV 8.9 Immature Gran % (Auto) 0.800 Neut % (Auto) 71.0 H Lymph % (Auto) 13.9 L [place] % (Auto) 14.1 H Eos % (Auto) 0.0 Baso % (Auto) 0.2 Absolute Neuts (auto) 4.2 Absolute Lymphs (auto) 0.82 L Total Counted Not Reportable ESR 44 H Sodium 133 L Potassium 4.8 Chloride 99 Carbon Dioxide 21.0 Anion Gap 13 BUN 80 H Creatinine 8.12 H* Estim Creat Clear Calc 7.07 Est GFR (MDRD) Af Amer 7 L Est GFR (MDRD) Non-Af 6 L BUN/Creatinine Ratio 9.9 L Glucose 114 H Calcium 8.2 L Phosphorus Magnesium Total Bilirubin 0.50 AST 11 L ALT 8 L Alkaline Phosphatase 136 H Total Creatine Kinase Troponin I Total Protein 6.7 Total Protein (PEP) Pending Albumin 3.1 L Globulin 3.6 Albumin/Globulin Ratio 0.9 TSH Ethyl Alcohol IgG Pending IgA Pending IgM Pending Albumin ([place]) Pending Albumin/Globulin ([place]) Pending Uqfyt-5-Umempybgj [place] Pending Vjbsd-5-Oifsxyibw [place] Pending Beta-Globulins ([place]) Pending Gamma Globulins ([place]) Pending [place] M-Wagner Pending PRACHI Screen JAKY-1 Antibody SS-A/Ro IgG Antibody SS-B/La IgG Antibody Sm (Ayala) Antibody CASE MANAGEMENT COORDINATOR Antibody Scl-70 Scleroderma Ab Double Strand DNA Ab Centromere B Antibody POC Glucose 09/23/18 06:54 POC Glucose 129 H lumbar and thoracic spine mri reviewed, normal Assessment/Plan All Active Problems (Last Reviewed 09/23/18 @ 10:30 by Fahad Parker MD) Lower extremity weakness (Acute) Syncope (Acute) Orthostatic hypotension (Acute) syncope, likely due to intermittent hypotension associated with kidney disease and complicated by neuropathy rec aggressive sugar control, supportive care, pt/ot, increase physical activity teds/support hose increase fluids and electrolytes if feasible from nephrology standpoint
[2018-09-23] MEDS: Venlafaxine XR 150 MG Capsule PO (10:45)
[2018-09-23] MEDS: Heparin Injection (Vial) 5,000 UNIT/ML VIAL 5000 UNIT SC ×2 (10:46→10:50)
[2018-09-23] MEDS: Aspirin E.C. 81 MG Tablet PO (10:46)
[2018-09-23] MEDS: buPROPion (XL) 300 MG TABLET.XL PO (10:46)
[2018-09-23] MEDS: Pregabalin 50 MG Capsule PO ×2 (10:50→22:12)
[2018-09-23 11:50] LABS: Bedside Glucose 130 mg/dL (70-110)
[2018-09-23 15:04] LABS: Amphetamine Urine VISTA NEGATIVE (<1000 ng/mL); Barbiturate Urine VISTA NEGATIVE (< 200 ng/mL); Benzodiazepine Urine VISTA NEGATIVE (< 200 ng/mL); Cocaine Urine VISTA NEGATIVE (< 300 ng/mL); Ecstacy Urine VISTA POSITIVE (< 500 ng/mL); Methadone Urine VISTA NEGATIVE (< 300 ng/mL); PCP Urine VISTA NEGATIVE (< 25 ng/mL); THC Urine VISTA NEGATIVE (< 50 ng/mL); Vista UDS pH Range 7
--- NOTE | 2018-09-23 15:12 | CON.PCM_ITS ---
Consultation - Renal 09/23/18 PCP/ Referring MD: Requesting physician: [] Primary care physician: Melvi Eastman Reason for Consultation:: ESRD HD TTS - History of Present Illness History of Present Illness: The patient is a 43 year old F with ESRD due to diabetes, obstructive uropathy, neurogenic bladder admitted as observation for falling at home last night, unable to get up with leg numbness. She had trouble with frequent falls on Saturday as well. She was treated medically for hyperkalemia K 5.6 with kayexalate 30g. She had an MRI today. Neurology consulted. Lumbar spine MRI showed bilateral hydronephrosis that may be chronic changes present on prior scans. She has been taken off all BP medications for orthostatic hypotension. Sen is seen on dialysis. Currently BP 180 at start of treatment down to 100's systolic. She denies chest pain, syncope. She has been up walking but still weak. She feels like her ears are popping with her weakness. - Allergies Allergies: Allergies ciprofloxacin [From Cipro] Adverse Reaction (Verified 08/28/18 22:40) Vomiting contrast dye Allergy (Severe, Uncoded 08/28/18 22:40) Anaphylaxis - Current Medications Current Medications: Current Medications Acetaminophen (Tylenol) 650 mg PO Q6H PRN PRN PRN Reason: Non-cardiac pain (mod-severe) Hydrocodone Bitart/Acetaminophen ([place] 5mg-325mg) 1 tablet PO Q6H PRN PRN PRN Reason: PAIN Last Admin: 09/23/18 02:23 Dose: 1 tablet Documented by: Al Hydroxide/Mg Hydroxide (Mylanta Ii) 15 - 30 ml PO Q4H PRN PRN PRN Reason: INDIGESTION Albuterol Sulfate (Ventolin Aerosols) 2.5 mg INHALATION Q2H PRN PRN PRN Reason: dyspnea, wheezing Aspirin (Ecotrin) 81 mg PO DAILY@0800 [facility] Last Admin: 09/23/18 10:46 Dose: 81 mg Documented by: Bupropion HCl (Wellbutrin Xl) 300 mg PO DAILY [facility] Last Admin: 09/23/18 10:46 Dose: 300 mg Documented by: Dextrose (D50w Syringe) 0 gm IV X1 PRN; Protocol PRN Reason: Hypoglycemia Glucagon () 1 mg IM .X1 PRN PRN Reason: Hypoglycemia Heparin Sodium (Porcine) (Heparin Na) 5,000 unit SC Q12 [facility] Last Admin: 09/23/18 10:50 Dose: 5,000 unit Documented by: Hydralazine HCl (Apresoline Iv) 10 mg IV Q4H PRN PRN PRN Reason: SBP > 160 Sodium Chloride () 1,000 mls @ 100 mls/hr IV .Q10H [facility] Last Admin: 09/23/18 05:55 Dose: 100 mls/hr Documented by: Insulin Human Lispro (Humalog Kwikpen (Bkc)) 0 unit SC ACHS [facility]; Protocol Last Admin: 09/23/18 11:46 Dose: Not Given Documented by: Magnesium Hydroxide (Milk Of Magnesia) 30 ml PO DAILY PRN PRN Reason: Constipation Melatonin (Melatonin) 3 mg PO QHS PRN PRN PRN Reason: INSOMNIA Nortriptyline HCl (Pamelor) 50 mg PO QHS MAGGIE Ondansetron HCl (Zofran) 4 mg IV Q8H PRN PRN PRN Reason: NAUSEA/VOMITING Pregabalin (Lyrica) 50 mg PO BID [facility] Last Admin: 09/23/18 10:50 Dose: 50 mg Documented by: Sodium Chloride () 5 - 15 ml IV UD PRN PRN Reason: SALINE FLUSH Venlafaxine HCl (Effexor Xr) 150 mg PO DAILY [facility] Last Admin: 09/23/18 10:45 Dose: 150 mg Documented by: - Past Medical History Past Medical History (Chronic Problems): Chronic Problems (Last Reviewed 09/23/18 @ 10:30 by Fahad Parker MD) ESRD (end stage renal disease) (Chronic) Chronic renal failure, stage 4 (severe) (Chronic) Morbid obesity (Chronic) HTN (hypertension) (Chronic) Bilateral hydronephrosis (Chronic) Iron deficiency anemia (Chronic) Type II diabetes mellitus (Chronic) Coronary artery disease (Chronic) Chronic low back pain (Chronic) Hydroureter (Chronic) Bladder outlet obstruction (Chronic) - Past Surgical History Surgical History: - - PCI, bilateral ureteral stent placements and removal, AVF creation, tunnel intervention, port placement. - Social History Smoking Status: Never smoker Alcohol: None Drugs: None - Family History Maternal History Items: Unknown - Patient was adopted and she does not know her family of origin to be able to provide any family medical history. Paternal History Items: Unknown - Patient was adopted and she does not know her family of origin to be able to provide any family medical history. Review of Systems Constitutional: Reports: Weakness. Denies: Anorexia, Chills, Fever Cardiovascular: Denies: Chest Pain, Edema, Light Headedness, Palpitations, Syncope Respiratory: Denies: Shortness of Breath Gastrointestinal: Denies: Abdominal Pain, Nausea, Vomiting Neurological: Reports: Balance problems, - - weakness, unable to stand, frequent falls Psychiatric: Reports: Depression Hematologic/ Lymphatic: Reports: Anemia Patient Problems: Active and Suspected Problems (Last Reviewed 09/23/18 @ 10:30 by Fahad Parker MD) Lower extremity weakness (Acute) - Physical Exam General: Alert, Oriented x3, Cooperative, No apparent distress Lungs: Clear to auscultation Cardiovascular: Regular rate Abdomen: Bowel Sounds Present, Soft, Non Tender, Non-Distended, Obese Extremities: No edema Psych/Mental Status: Normal Affect, Appropriate, Alert and oriented to time, place, person, mood and affect Vital Signs Temp Pulse Resp BP Pulse Ox 98.1 F 89 18 111/51 L 95 09/23/18 10:43 09/23/18 13:54 09/23/18 10:43 09/23/18 10:43 09/23/18 10:43 Oxygen Delivery Method Room Air Weight: 111.8 kg Body Mass Index (BMI) 45.1 Finger Stick Blood Glucose 98 Intake and Output for Last 24 Hours 09/21/18 09/22/18 09/23/18 23:59 23:59 23:59 Intake Total 1706 / 1706 Output Total 100 / 100 Balance 1606 / 1606 Laboratory Tests Past 24 Hrs 09/22/18 09/22/18 09/22/18 21:17 21:17 21:17 WBC 6.2 RBC 3.74 L Hgb 10.7 L Hct 30.3 L MCV 81.0 MCH 28.6 MCHC 35.3 RDW 14.5 RDW Differential 40.9 Plt Count 174 MPV 8.5 Immature Gran % (Auto) 0.300 Neut % (Auto) 73.5 H Lymph % (Auto) 14.5 L [place] % (Auto) 11.5 H Eos % (Auto) 0.0 Baso % (Auto) 0.2 Absolute Neuts (auto) 4.5 Absolute Lymphs (auto) 0.89 Total Counted Not Reportable ESR Sodium 130 L Potassium 5.6 H Chloride 95 L Carbon Dioxide 24.0 Anion Gap 11 BUN 80 H Creatinine 8.23 H* Estim Creat Clear Calc 6.97 Est GFR (MDRD) Af Amer 7 L Est GFR (MDRD) Non-Af 6 L BUN/Creatinine Ratio 9.7 L Glucose 106 Calcium 9.2 Phosphorus Magnesium Total Bilirubin AST ALT Alkaline Phosphatase Total Creatine Kinase 87 Troponin I < 0.015 Total Protein Total Protein (PEP) Albumin Globulin Albumin/Globulin Ratio TSH Urine Opiates Screen Urine Methadone Screen Ur Barbiturates Screen Ur Phencyclidine Scrn Ur Amphetamines Screen U Methamphetamin-MDMA U Benzodiazepines Scrn Urine Cocaine Screen U Cannabinoids Screen Ur Drug Screen Comment Ethyl Alcohol IgG IgA IgM Albumin ([place]) Albumin/Globulin ([place]) Vvuly-5-Ekckfrsby [place] Sqvwt-2-Jeamuvbpk [place] Beta-Globulins ([place]) Gamma Globulins ([place]) [place] M-Wagner PRACHI Screen JAKY-1 Antibody SS-A/Ro IgG Antibody SS-B/La IgG Antibody Sm (Ayala) Antibody FUELS SALES REPRESENTATIVE Antibody Scl-70 Scleroderma Ab Double Strand DNA Ab Centromere B Antibody 09/22/18 09/22/18 09/23/18 21:17 21:17 05:40 WBC RBC Hgb Hct MCV MCH MCHC RDW RDW Differential Plt Count MPV Immature Gran % (Auto) Neut % (Auto) Lymph % (Auto) [place] % (Auto) Eos % (Auto) Baso % (Auto) Absolute Neuts (auto) Absolute Lymphs (auto) Total Counted ESR Sodium Potassium Chloride Carbon Dioxide Anion Gap BUN Creatinine Estim Creat Clear Calc Est GFR (MDRD) Af Amer Est GFR (MDRD) Non-Af BUN/Creatinine Ratio Glucose Calcium Phosphorus 9.5 H* Magnesium 2.6 Total Bilirubin AST ALT Alkaline Phosphatase Total Creatine Kinase 87 Troponin I Total Protein Total Protein (PEP) Albumin Globulin Albumin/Globulin Ratio TSH 3.15 Urine Opiates Screen Urine Methadone Screen Ur Barbiturates Screen Ur Phencyclidine Scrn Ur Amphetamines Screen U Methamphetamin-MDMA U Benzodiazepines Scrn Urine Cocaine Screen U Cannabinoids Screen Ur Drug Screen Comment Ethyl Alcohol 9.0 IgG IgA IgM Albumin ([place]) Albumin/Globulin ([place]) Rtekc-5-Hkptovmvq [place] Lwtii-7-Oarxxbxse [place] Beta-Globulins ([place]) Gamma Globulins ([place]) [place] M-Wagner PRACHI Screen Pending JAKY-1 Antibody Pending SS-A/Ro IgG Antibody Pending SS-B/La IgG Antibody Pending Sm (Ayala) Antibody Pending FUELS SALES REPRESENTATIVE Antibody Pending Scl-70 Scleroderma Ab Pending Double Strand DNA Ab Pending Centromere B Antibody Pending 09/23/18 09/23/18 09/23/18 05:40 05:40 05:40 WBC 5.9 RBC 3.41 L Hgb 9.6 L Hct 28.0 L MCV 82.1 MCH 28.2 MCHC 34.3 RDW 14.3 RDW Differential 41.4 Plt Count 156 MPV 8.9 Immature Gran % (Auto) 0.800 Neut % (Auto) 71.0 H Lymph % (Auto) 13.9 L [place] % (Auto) 14.1 H Eos % (Auto) 0.0 Baso % (Auto) 0.2 Absolute Neuts (auto) 4.2 Absolute Lymphs (auto) 0.82 L Total Counted Not Reportable ESR 44 H Sodium 133 L Potassium 4.8 Chloride 99 Carbon Dioxide 21.0 Anion Gap 13 BUN 80 H Creatinine 8.12 H* Estim Creat Clear Calc 7.07 Est GFR (MDRD) Af Amer 7 L Est GFR (MDRD) Non-Af 6 L BUN/Creatinine Ratio 9.9 L Glucose 114 H Calcium 8.2 L Phosphorus Magnesium Total Bilirubin 0.50 AST 11 L ALT 8 L Alkaline Phosphatase 136 H Total Creatine Kinase Troponin I Total Protein 6.7 Total Protein (PEP) Pending Albumin 3.1 L Globulin 3.6 Albumin/Globulin Ratio 0.9 TSH Urine Opiates Screen Urine Methadone Screen Ur Barbiturates Screen Ur Phencyclidine Scrn Ur Amphetamines Screen U Methamphetamin-MDMA U Benzodiazepines Scrn Urine Cocaine Screen U Cannabinoids Screen Ur Drug Screen Comment Ethyl Alcohol IgG Pending IgA Pending IgM Pending Albumin ([place]) Pending Albumin/Globulin ([place]) Pending Sygpz-8-Vtqqlgptw [place] Pending Xaymc-8-Mrufzqdgv [place] Pending Beta-Globulins ([place]) Pending Gamma Globulins ([place]) Pending [place] M-Wagner Pending PRACHI Screen JAKY-1 Antibody SS-A/Ro IgG Antibody SS-B/La IgG Antibody Sm (Ayala) Antibody FUELS SALES REPRESENTATIVE Antibody Scl-70 Scleroderma Ab Double Strand DNA Ab Centromere B Antibody 09/23/18 14:35 WBC RBC Hgb Hct MCV MCH MCHC RDW RDW Differential Plt Count MPV Immature Gran % (Auto) Neut % (Auto) Lymph % (Auto) [place] % (Auto) Eos % (Auto) Baso % (Auto) Absolute Neuts (auto) Absolute Lymphs (auto) Total Counted ESR Sodium Potassium Chloride Carbon Dioxide Anion Gap BUN Creatinine Estim Creat Clear Calc Est GFR (MDRD) Af Amer Est GFR (MDRD) Non-Af BUN/Creatinine Ratio Glucose Calcium Phosphorus Magnesium Total Bilirubin AST ALT Alkaline Phosphatase Total Creatine Kinase Troponin I Total Protein Total Protein (PEP) Albumin Globulin Albumin/Globulin Ratio TSH Urine Opiates Screen NEGATIVE Urine Methadone Screen NEGATIVE Ur Barbiturates Screen NEGATIVE Ur Phencyclidine Scrn NEGATIVE Ur Amphetamines Screen NEGATIVE U Methamphetamin-MDMA POSITIVE H U Benzodiazepines Scrn NEGATIVE Urine Cocaine Screen NEGATIVE U Cannabinoids Screen NEGATIVE Ur Drug Screen Comment Ethyl Alcohol IgG IgA IgM Albumin ([place]) Albumin/Globulin ([place]) Vnuzi-9-Uuxkvfoar [place] Vfwsd-9-Irlqujycw [place] Beta-Globulins ([place]) Gamma Globulins ([place]) [place] M-Wagner PRACHI Screen JAKY-1 Antibody SS-A/Ro IgG Antibody SS-B/La IgG Antibody Sm (Ayala) Antibody FUELS SALES REPRESENTATIVE Antibody Scl-70 Scleroderma Ab Double Strand DNA Ab Centromere B Antibody POC Glucose 09/23/18 09/23/18 11:45 06:54 POC Glucose 130 H 129 H Clinical Impression(s) from Imaging Studies Chest X-Ray 09/22/18 21:01 IMPRESSION: Indeterminate linear opacities within the left mid and lower lungs, these may be on the patient however cannot exclude minimal atelectasis. Electronically Signed: Abi De Leon MD at 21:22 EDT Tel , Service support , Lumbar Spine MRI 09/23/18 01:29 IMPRESSION: L5/S1 with mild bilateral foraminal narrowing as above. There is bilateral moderate to severe renal hydronephrosis concerning for distal ureteral obstruction, clinically correlate. Electronically Signed: Franklin Snow DO at 10:32 EDT , Service support , Thoracic Spine MRI 09/23/18 01:29 IMPRESSION: No evidence of significant disc space and degenerative change, disc bulge or spinal canal narrowing. Bilateral renal cysts as above, further evaluation may be obtained with dedicated renal ultrasound. Electronically Signed: Franklin DO Edy at 10:29 EDT , Service support , ADDENDUM: 09/23/18 1040 Assessment/Plan All Active Problems (Last Reviewed 09/23/18 @ 10:30 by Fahad Parker MD) Lower extremity weakness (Acute) Syncope (Acute) Orthostatic hypotension (Acute) 1. ESRD HD today and TTS. Follow chronic orders. Seen on dialysis 2. Fall, weakness, neurology consulted. suspect has orthostatic hypotension. May need to start midodrine. Monitor BP 3. Anemia VIVIAN on dialysis 4. Hx Obstructive uropathy, chronic hydronephrosis and hydroureter on xray. Pt does not self cath. Asymptomatic. 5. DM2 primary service mgmt 6. HTN stable with labile BP's 7. hyperkalemia resolved.
[2018-09-23 17:05] LABS: Bedside Glucose 121 mg/dL (70-110)
--- NOTE | 2018-09-23 18:41 | DIALYSIS ---
Hemodialysis tx completed x 3.5 hours. Pt tolerated tx well. Fluid removal limited to 2,000ml due to hypotension at times. Pt asymptomatic throughout tx. Verbal report given to JULITO Hackett post tx.
--- NOTE | 2018-09-23 19:48 | PCM.PROGNOTE ---
Patient Problems: Active and Suspected Problems (Last Reviewed 09/23/18 @ 10:30 by Fahad Parker MD) Lower extremity weakness (Acute) Subjective: Patient was seen and examined today, I talked to her about the use of a walker at home-she tells me that she has a walker, and it turns out by her description is a Rollator. She states she uses this at home to walk around. I talked to physical therapy and occupational therapy today, they do not feel the patient needs inpatient skilled rehab. Patient will have dialysis today. Patient's imaging studies do not show any reason for the patient to have lower extremity weakness. - Physical Exam General: Alert, Oriented x3, Cooperative, No apparent distress, Well developed HEENT: Atraumatic, PERRLA, EOMI, Normocephalic Oral: Moist Mucosa Neck: Supple, No JVD, Negative Carotid Bruits, Trachea Midline, Thyroid Normal Size and Texture Lungs: Clear to auscultation, Normal air movement, No rhonchi, No wheeze, No rales, Diminished, Rales Cardiovascular: Regular rate, Regular Rhythm, Normal S1, Normal S2, No murmurs, No Ectopic Activity Abdomen: Bowel Sounds Present, Soft, Non Tender, Non-Distended, Distended, Obese Extremities: No clubbing, No cyanosis, No edema, Capillary Refill Less than 3 Seconds Skin: No rashes, No breakdown Musculoskeletal: No Tenderness to Palpation of Joints or Extremities Neurological: Cranial nerves II-XII grossly intact, Neuro grossly intact, Sensory exam intact to light touch and pain Psych/Mental Status: Normal Affect, Appropriate, Alert and oriented to time, place, person, mood and affect Vital Signs Temp Pulse Resp BP Pulse Ox 98.1 F 69 18 109/51 L 98 09/23/18 18:30 09/23/18 18:30 09/23/18 18:30 09/23/18 18:30 09/23/18 18:30 Oxygen Delivery Method Room Air Weight: 111.8 kg Body Mass Index (BMI) 45.1 Finger Stick Blood Glucose 98 Intake and Output for Last 24 Hours 09/21/18 09/22/18 09/23/18 23:59 23:59 23:59 Intake Total 2306 / 2306 Output Total 2100 / 2100 Balance 206 / 206 Laboratory Tests Past 24 Hrs 09/22/18 09/22/18 09/22/18 21:17 21:17 21:17 WBC 6.2 RBC 3.74 L Hgb 10.7 L Hct 30.3 L MCV 81.0 MCH 28.6 MCHC 35.3 RDW 14.5 RDW Differential 40.9 Plt Count 174 MPV 8.5 Immature Gran % (Auto) 0.300 Neut % (Auto) 73.5 H Lymph % (Auto) 14.5 L [place] % (Auto) 11.5 H Eos % (Auto) 0.0 Baso % (Auto) 0.2 Absolute Neuts (auto) 4.5 Absolute Lymphs (auto) 0.89 Total Counted Not Reportable ESR Sodium 130 L Potassium 5.6 H Chloride 95 L Carbon Dioxide 24.0 Anion Gap 11 BUN 80 H Creatinine 8.23 H* Estim Creat Clear Calc 6.97 Est GFR (MDRD) Af Amer 7 L Est GFR (MDRD) Non-Af 6 L BUN/Creatinine Ratio 9.7 L Glucose 106 Calcium 9.2 Phosphorus Magnesium Total Bilirubin AST ALT Alkaline Phosphatase Total Creatine Kinase 87 Troponin I < 0.015 Total Protein Total Protein (PEP) Albumin Globulin Albumin/Globulin Ratio TSH Urine Opiates Screen Urine Methadone Screen Ur Barbiturates Screen Ur Phencyclidine Scrn Ur Amphetamines Screen U Methamphetamin-MDMA U Benzodiazepines Scrn Urine Cocaine Screen U Cannabinoids Screen Ur Drug Screen Comment Ethyl Alcohol IgG IgA IgM Albumin ([place]) Albumin/Globulin ([place]) Kfdrd-5-Otoobpmhr [place] Cjzys-2-Tazfoemzl [place] Beta-Globulins ([place]) Gamma Globulins ([place]) [place] M-Wagner PRACHI Screen JAKY-1 Antibody SS-A/Ro IgG Antibody SS-B/La IgG Antibody Sm (Ayala) 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 Scl-70 Scleroderma Ab Double Strand DNA Ab Centromere B Antibody 09/22/18 09/22/18 09/23/18 21:17 21:17 05:40 WBC RBC Hgb Hct MCV MCH MCHC RDW RDW Differential Plt Count MPV Immature Gran % (Auto) Neut % (Auto) Lymph % (Auto) [place] % (Auto) Eos % (Auto) Baso % (Auto) Absolute Neuts (auto) Absolute Lymphs (auto) Total Counted ESR Sodium Potassium Chloride Carbon Dioxide Anion Gap BUN Creatinine Estim Creat Clear Calc Est GFR (MDRD) Af Amer Est GFR (MDRD) Non-Af BUN/Creatinine Ratio Glucose Calcium Phosphorus 9.5 H* Magnesium 2.6 Total Bilirubin AST ALT Alkaline Phosphatase Total Creatine Kinase 87 Troponin I Total Protein Total Protein (PEP) Albumin Globulin Albumin/Globulin Ratio TSH 3.15 Urine Opiates Screen Urine Methadone Screen Ur Barbiturates Screen Ur Phencyclidine Scrn Ur Amphetamines Screen U Methamphetamin-MDMA U Benzodiazepines Scrn Urine Cocaine Screen U Cannabinoids Screen Ur Drug Screen Comment Ethyl Alcohol 9.0 IgG IgA IgM Albumin ([place]) Albumin/Globulin ([place]) Tcerm-9-Ivphzjrqi [place] Xbjbh-4-Yypbydlap [place] Beta-Globulins ([place]) Gamma Globulins ([place]) [place] M-Wagner PRACHI Screen Pending JAKY-1 Antibody Pending SS-A/Ro IgG Antibody Pending SS-B/La IgG Antibody Pending Sm (Ayala) Antibody Pending 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 Pending Scl-70 Scleroderma Ab Pending Double Strand DNA Ab Pending Centromere B Antibody Pending 09/23/18 09/23/18 09/23/18 05:40 05:40 05:40 WBC 5.9 RBC 3.41 L Hgb 9.6 L Hct 28.0 L MCV 82.1 MCH 28.2 MCHC 34.3 RDW 14.3 RDW Differential 41.4 Plt Count 156 MPV 8.9 Immature Gran % (Auto) 0.800 Neut % (Auto) 71.0 H Lymph % (Auto) 13.9 L [place] % (Auto) 14.1 H Eos % (Auto) 0.0 Baso % (Auto) 0.2 Absolute Neuts (auto) 4.2 Absolute Lymphs (auto) 0.82 L Total Counted Not Reportable ESR 44 H Sodium 133 L Potassium 4.8 Chloride 99 Carbon Dioxide 21.0 Anion Gap 13 BUN 80 H Creatinine 8.12 H* Estim Creat Clear Calc 7.07 Est GFR (MDRD) Af Amer 7 L Est GFR (MDRD) Non-Af 6 L BUN/Creatinine Ratio 9.9 L Glucose 114 H Calcium 8.2 L Phosphorus Magnesium Total Bilirubin 0.50 AST 11 L ALT 8 L Alkaline Phosphatase 136 H Total Creatine Kinase Troponin I Total Protein 6.7 Total Protein (PEP) Pending Albumin 3.1 L Globulin 3.6 Albumin/Globulin Ratio 0.9 TSH Urine Opiates Screen Urine Methadone Screen Ur Barbiturates Screen Ur Phencyclidine Scrn Ur Amphetamines Screen U Methamphetamin-MDMA U Benzodiazepines Scrn Urine Cocaine Screen U Cannabinoids Screen Ur Drug Screen Comment Ethyl Alcohol IgG Pending IgA Pending IgM Pending Albumin ([place]) Pending Albumin/Globulin ([place]) Pending Aalpp-7-Nuqzgdarx [place] Pending Nghrm-4-Lfmlrhgsd [place] Pending Beta-Globulins ([place]) Pending Gamma Globulins ([place]) Pending [place] M-Wagner Pending PRACHI Screen JAKY-1 Antibody SS-A/Ro IgG Antibody SS-B/La IgG Antibody Sm (Ayala) 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 Scl-70 Scleroderma Ab Double Strand DNA Ab Centromere B Antibody 09/23/18 14:35 WBC RBC Hgb Hct MCV MCH MCHC RDW RDW Differential Plt Count MPV Immature Gran % (Auto) Neut % (Auto) Lymph % (Auto) [place] % (Auto) Eos % (Auto) Baso % (Auto) Absolute Neuts (auto) Absolute Lymphs (auto) Total Counted ESR Sodium Potassium Chloride Carbon Dioxide Anion Gap BUN Creatinine Estim Creat Clear Calc Est GFR (MDRD) Af Amer Est GFR (MDRD) Non-Af BUN/Creatinine Ratio Glucose Calcium Phosphorus Magnesium Total Bilirubin AST ALT Alkaline Phosphatase Total Creatine Kinase Troponin I Total Protein Total Protein (PEP) Albumin Globulin Albumin/Globulin Ratio TSH Urine Opiates Screen NEGATIVE Urine Methadone Screen NEGATIVE Ur Barbiturates Screen NEGATIVE Ur Phencyclidine Scrn NEGATIVE Ur Amphetamines Screen NEGATIVE U Methamphetamin-MDMA POSITIVE H U Benzodiazepines Scrn NEGATIVE Urine Cocaine Screen NEGATIVE U Cannabinoids Screen NEGATIVE Ur Drug Screen Comment Ethyl Alcohol IgG IgA IgM Albumin ([place]) Albumin/Globulin ([place]) Aiyvi-8-Sosepukds [place] Pjmcu-9-Kzlaeuqbh [place] Beta-Globulins ([place]) Gamma Globulins ([place]) [place] M-Wagner PRACHI Screen JAKY-1 Antibody SS-A/Ro IgG Antibody SS-B/La IgG Antibody Sm (Yaala) 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 Scl-70 Scleroderma Ab Double Strand DNA Ab Centromere B Antibody POC Glucose 09/23/18 09/23/18 09/23/18 17:02 11:45 06:54 POC Glucose 121 H 130 H 129 H Medical Necessity - Tobacco Use Smoking Status: Never smoker Assessment/Plan All Active Problems (Last Reviewed 09/23/18 @ 10:30 by Fahad Parker MD) Lower extremity weakness (Acute) Syncope (Acute) Orthostatic hypotension (Acute) #1 generalized weakness-probably secondary to deconditioning on an overlay of diabetic neuropathy, patient does not appear to need placement in a residential facility and you are does she want to go to a residential facility for short-term rehab. I will reevaluate the patient tomorrow morning, she will have dialysis today #2 end-stage renal disease-patient will have dialysis today #3 hyperkalemia-again patient will have dialysis today #4 type 2 diabetes #5 hypertension #6 morbid obesity #7 anemia of chronic renal disease #8 diabetic neuropathy Code Visit OBSV E&M: 38135 Subsequent observation care L3
[2018-09-23] MEDS: Insulin Lispro 100 UNIT/ML INSULN.PEN SC (21:02)
[2018-09-23] MEDS: Nortriptyline 25 MG Capsule 50 MG PO (22:12)
[2018-09-24 00:16] LABS: Bedside Glucose 196 mg/dL (70-110)
[2018-09-24 03:24] VITALS: BP 121/71; PULSE 71; RESP 18; TEMP 36.8; O2SAT 98
[2018-09-24] MEDS: 0.9% Normal Saline 1,000 ML 100 ML IV (05:26)
[2018-09-24 06:50] LABS: Bedside Glucose 107 mg/dL (70-110)
[2018-09-24 07:40] VITALS: O2SAT 95
[2018-09-24] MEDS: Aspirin E.C. 81 MG Tablet PO (08:50)
[2018-09-24 09:20] VITALS: BP 157/105; PULSE 76; RESP 18; TEMP 36.6; O2SAT 99
[2018-09-24] MEDS: Heparin Injection (Vial) 5,000 UNIT/ML VIAL 5000 UNIT SC (10:19)
[2018-09-24] MEDS: Venlafaxine XR 150 MG Capsule PO (10:19)
[2018-09-24] MEDS: Pregabalin 50 MG Capsule PO (10:19)
[2018-09-24] MEDS: buPROPion (XL) 300 MG TABLET.XL PO (10:19)
[2018-09-24] MEDS: Midodrine HCl 5 MG Tablet 2.5 MG PO (10:21)
--- NOTE | 2018-09-24 11:52 | DCINST_ITS ---
- Discharge Diagnoses Current Active Problems: Current Active and Chronic Problems (Last Reviewed 09/23/18 @ 10:30 by Fahad Parker MD) ESRD (end stage renal disease) (Chronic) Lower extremity weakness (Acute) You will use the following diet at home:: Other - resume previous diet Your food should be the consistency of: Regular Your liquids should be the consistency of: Regular/Thin Discharge Activity: Return to Normal Activity Weight Bearing Status: Full weight bearing Allergies/Adverse Reactions: Allergies ciprofloxacin [From Cipro] Adverse Reaction (Verified 08/28/18 22:40) Vomiting contrast dye Allergy (Severe, Uncoded 08/28/18 22:40) Anaphylaxis Medications to take at Discharge Ergocalciferol [Vitamin D] 50,000 unit PO WE 04/18/17 Hydrocodone/Acetaminophen [[place] 5-325 Tablet] 1 ea PO Q6H PRN PRN 02/28/18 Venlafaxine XR [Effexor Xr] 150 mg PO DAILY 02/28/18 Aspirin E.C. [Ecotrin] 81 mg PO DAILY@0800 07/15/18 Nortriptyline HCl [Pamelor] 50 mg PO QHS 07/15/18 Pregabalin [Lyrica] 50 mg PO BID 07/15/18 Bupropion HCl [Bupropion Xl] 300 mg PO DAILY 09/22/18 Midodrine HCl [Proamatine] 2.5 mg PO DAILY #30 tab 09/24/18 The following prescriptions were given: Midodrine HCl [Proamatine] 2.5 mg PO DAILY #30 tab Transmission Status: Pending to [facility] Primary Care Physician: eMlvi Eastman MD [Primary Care Provider] - Please follow up with your Primary Care Physician in: in 2 weeks Test Results: Test results from this visit will be discussed in further detail at your follow- up appointment, if applicable. Please Follow Up With: Betty Odonnell DO When: as directed
[2018-09-24 12:10] LABS: Bedside Glucose 142 mg/dL (70-110)
[2018-09-24 13:10] VITALS: BP 170/68; PULSE 75; RESP 18; TEMP 36.5; O2SAT 100
--- NOTE | 2018-09-24 15:37 | PCM.PN.REN ---
Subjective: no syncope, still weak but no indication for ECF for rehab. BP improved started on low dose midodrine 2.5mg last night. - Physical Exam General: Alert, Oriented x3, Cooperative Vital Signs Temp Pulse Resp BP Pulse Ox 97.7 F L 75 18 170/68 H 100 09/24/18 13:10 09/24/18 13:10 09/24/18 13:10 09/24/18 13:10 09/24/18 13:10 Oxygen Delivery Method Room Air Weight: 111.8 kg Body Mass Index (BMI) 45.1 Finger Stick Blood Glucose 98 Intake and Output for Last 24 Hours 09/22/18 09/23/18 09/24/18 23:59 23:59 23:59 Intake Total 3203 / 3203 2292 / 2292 Output Total 2100 / 2100 300 / 300 Balance 1103 / 1103 1991 POC Glucose 09/24/18 09/24/18 09/23/18 12:03 06:44 20:57 POC Glucose 142 H 107 196 H 09/23/18 17:02 POC Glucose 121 H Medical Necessity - Tobacco Use Smoking Status: Never smoker Assessment/Plan All Active Problems (Last Reviewed 09/23/18 @ 10:30 by Fahad Parker MD) Lower extremity weakness (Acute) Syncope (Acute) Orthostatic hypotension (Acute) 1. ESRD TTS 2. Fall, weakness suspect has orthostatic hypotension. started on midodrine. Monitor BP at chronic unit 3. Anemia VIVIAN on dialysis 4. DM2 primary service mgmt
[2018-09-24 22:07] LABS: Albumin 3.3 g/dL (2.9-4.4); Alpha-1-Globulins 0.2 g/dL (0.0-0.4); Alpha-2-Globulins 0.9 g/dL (0.4-1.0); Gamma Globulin 1.1 g/dL (0.4-1.8); Immunoglobulin A 172 mg/dL (87-352); Immunoglobulin G 927 mg/dL (700-1600); Immunoglobulin M 118 mg/dL (26-217); PROEL- TOTAL PROTEIN 6.4 g/dL (6.0-8.5)
--- NOTE | 2018-09-25 08:26 | PCM.DC.SUM ---
Discharge Date and Diagnosis - Problem List Patient Problems: Active and Suspected Problems (Last Reviewed 09/23/18 @ 10:30 by Fahad Parker MD) Generalized weakness (Acute) Debility (Acute) Date of Admission: 09/22/18 Date of Discharge: 09/24/18 - Primary Discharge Diagnosis Active and Suspected Problems (Last Reviewed 09/23/18 @ 10:30 by Fahad Parker MD) #1 generalized weakness-probably secondary to deconditioning on an overlay of diabetic neuropathy #2 end-stage renal disease-requiring dialysis #3 hyperkalemia #4 type 2 diabetes #5 hypertension #6 morbid obesity #7 anemia of chronic renal disease #8 diabetic neuropathy - Secondary Discharge Diagnosis Chronic Problems (Last Reviewed 09/23/18 @ 10:30 by Fahad Parker MD) ESRD (end stage renal disease) (Chronic) Chronic renal failure, stage 4 (severe) (Chronic) Morbid obesity (Chronic) HTN (hypertension) (Chronic) Bilateral hydronephrosis (Chronic) Iron deficiency anemia (Chronic) Type II diabetes mellitus (Chronic) Coronary artery disease (Chronic) Chronic low back pain (Chronic) Hydroureter (Chronic) Bladder outlet obstruction (Chronic) Hospital Course and Treatment Operations: None Procedures: Dialysis Summary of Care Provided: The patient is a 43 year old F was seen in the emergency room at [facility] with a chief complaint of severe weakness of the legs that had progressed over 2 weeks, she stated that she had multiple falls at home and was unable to walk. Patient has a history of end-stage renal disease and is under chronic dialysis. Work-up in the emergency room was remarkable for hemoglobin of 10.7, BUN was 80, creatinine was 8.23. Patient was given Kayexalate and she was placed in observation status on MedSurg 3, she was seen in consultation by neurology and underwent an MRI of her thoracic and lumbar spine. Imaging study showed arthritis but no severe nerve impingement. Patient was seen by PT and OT and it was felt that she did not need inpatient longterm services. Patient was seen by nephrology and underwent dialysis during her hospital stay. On 09/24/2018, patient was seen and examined: On examination she appeared in good health and spirits. Vital signs as documented. Skin warm and dry and without overt rashes. Neck without JVD. Lungs clear. Heart exam notable for regular rhythm, normal sounds and absence of murmurs, rubs or gallops. Abdomen unremarkable and without evidence of organomegaly, masses, or abdominal aortic enlargement. Extremities-evidence of dry gangrene is noted over the patient's left little finger.. Neuro: Cranial nerves II through XII are grossly intact, no focal motor deficits were noted, sensation to light touch and pinprick is intact. Psych: Patient is alert and oriented x3, she does not appear anxious or depressed On 09/24/2018, patient was seen and examined and discharged home in stable condition Patient Problems: Active and Suspected Problems (Last Reviewed 09/23/18 @ 10:30 by Fahad Parker MD) Generalized weakness (Acute) Debility (Acute) - Physical Exam Vital Signs Temp Pulse Resp BP Pulse Ox 97.7 F L 75 18 170/68 H 100 09/24/18 13:10 09/24/18 13:10 09/24/18 13:10 09/24/18 13:10 09/24/18 13:10 Oxygen Delivery Method Room Air Weight: 111.8 kg Body Mass Index (BMI) 45.1 Finger Stick Blood Glucose 98 Intake and Output for Last 24 Hours 09/23/18 09/24/18 09/25/18 23:59 23:59 23:59 Intake Total 3203 / 3203 2292 / 2292 Output Total 2100 / 2100 300 / 300 Balance 1103 / 1103 1991 / 1991 POC Glucose 09/24/18 12:03 POC Glucose 142 H Discharge Activity: Return to Normal Activity Weight Bearing Status: Full weight bearing Home Medications: Medications to take at Discharge Ergocalciferol [Vitamin D] 50,000 unit PO WE 04/18/17 Hydrocodone/Acetaminophen [[place] 5-325 Tablet] 1 ea PO Q6H PRN PRN 02/28/18 Venlafaxine XR [Effexor Xr] 150 mg PO DAILY 02/28/18 Aspirin E.C. [Ecotrin] 81 mg PO DAILY@0800 07/15/18 Nortriptyline HCl [Pamelor] 50 mg PO QHS 07/15/18 Pregabalin [Lyrica] 50 mg PO BID 07/15/18 Bupropion HCl [Bupropion Xl] 300 mg PO DAILY 09/22/18 Midodrine HCl [Proamatine] 2.5 mg PO DAILY #30 tab 06/26/19 Following Prescrptions Were Given to Patient: Midodrine HCl [Proamatine] 2.5 mg PO DAILY #30 tab Transmission Status: Received by [facility] Primary Care Physician: Melvi Eastman MD [Primary Care Provider] - Please follow up with your Primary Care Physician in: in 2 weeks Please Follow Up With: Betty Odonnell DO When: as directed Disposition: Home Minutes spent on discharge:: 25 Patient Condition:: Stable Medical Necessity - Tobacco Use Smoking Status: Never smoker Meaningful Use Info Meaningful Use Diagnoses (Choose all that apply): None applicable Code Visit OBSV E&M: 39610 Observation care discharge
[2018-09-26 12:54] LABS: ANTINUCLEAR ANTIBODIES DIRECT Negative (Negative)
== END 2018-09-24 14:16 | disposition home or self-care (01) ==
LOC: ED 21:55 → MS3 09-23 00:25
PROVIDERS: Admitting Provider Family Medicine; Emergency Provider Emergency Medicine; Family Provider Internal Medicine; PCP Internal Medicine; Referring Provider Family Medicine; Visit Provider Internal Medicine
DX: R53.1 Weakness (principal); I25.10 Atherosclerotic heart disease of native coronary artery without angina pectoris; E78.5 Hyperlipidemia, unspecified; E66.01 Morbid (severe) obesity due to excess calories; G89.29 Other chronic pain; I12.0 Hypertensive chronic kidney disease with stage 5 chronic kidney disease or end stage renal disease; E11.22 Type 2 diabetes mellitus with diabetic chronic kidney disease; N18.6 End stage renal disease; N31.9 Neuromuscular dysfunction of bladder, unspecified; F41.9 Anxiety disorder, unspecified; F32.9 Major depressive disorder, single episode, unspecified; E87.5 Hyperkalemia; D50.9 Iron deficiency anemia, unspecified; I95.1 Orthostatic hypotension; E11.42 Type 2 diabetes mellitus with diabetic polyneuropathy; T82.898A Other specified complication of vascular prosthetic devices, implants and grafts, initial encounter; Y83.8 Other surgical procedures as the cause of abnormal reaction of the patient, or of later complication, without mention of misadventure at the time of the procedure; E11.52 Type 2 diabetes mellitus with diabetic peripheral angiopathy with gangrene; I96 Gangrene, not elsewhere classified; D63.1 Anemia in chronic kidney disease; Z91.81 History of falling; Z68.42 Body mass index [BMI] 45.0-49.9, adult; Z71.3 Dietary counseling and surveillance; Z79.899 Other long term (current) drug therapy; Z99.2 Dependence on renal dialysis; Z79.82 Long term (current) use of aspirin; Z95.5 Presence of coronary angioplasty implant and graft
CPT/HCPCS: 36415; 70450; 70551; 71045; 72100; 72146; 72148; 80048; 80053; 80307; 80320; 82550; 82784; 82962; 83735; 84100; 84165; 84443; 84484; 85025; 85652; 86038; 86225; 86235; 86334; 90937; 93005; 93922; 96360; 96361; 96372; 96374; 97110; 97162; 97166; 97530; 97535; 97802; 99218; 99285; J7030; J7040; A4216; G0257; G0378; G0480

== ENCOUNTER 2018-09-24 16:34 | Observation (INO) | payer MEDICAID, SELFPAY ==
[2018-09-23 01:36] VITALS: BMI 45.1
[2018-09-24 16:36] VITALS: BP 181/95; PULSE 102; RESP 16; TEMP 37.2; O2SAT 98; BMI 47.2
[2018-09-24 16:44] VITALS: RESP 18; O2SAT 98
--- NOTE | 2018-09-24 16:47 | CT_ITS ---
STUDY: CT BRAIN WITHOUT CONTRAST REASON FOR EXAM: Female, 43 years old. Fall RADIATION DOSAGE (If Supplied By Facility): DLP = ( 812.98 ) mGycm TECHNIQUE: Transaxial CT imaging of the brain was performed without administration of intravenous contrast material. Individualized dose optimization techniques were used for this CT. COMPARISON: CT head July 15, 2018 FINDINGS: There is no acute bleed or infarct. There are normal white matter tracts. The ventricles are normal in configuration. There is no hydrocephalus. The visualized paranasal sinuses are clear. The mastoid air cells are well aerated. There is no skull fracture. CT/Brain/Head without Contrast IMPRESSION: No acute intracranial abnormality. Electronically Signed: Jovi Velásquez, at 17:14 EDT Tel , Service support ,
--- NOTE | 2018-09-24 16:50 | EKG12_ITS ---
Test Reason : FALL Blood Pressure : / mmHG Vent. Rate : 091 BPM Atrial Rate : 091 BPM P-R Int : 160 ms QRS Dur : 104 ms QT Int : 384 ms P-R-T Axes : 039 039 072 degrees QTc Int : 472 ms Normal sinus rhythm Low voltage QRS Borderline ECG Confirmed by BETINA VINES, KEVEN ([id number]), photography editor ROSA M BURROWS ([id number]) on 09/26/2018 10:51:50 AM Referred By: Danyel Vickers Confirmed By:ELIZABETH MOFFETT MD
--- NOTE | 2018-09-24 17:03 | RAD_ITS ---
STUDY: X-RAY - LUMBAR SPINE REASON FOR EXAM: Female, 43 years old. Fall TECHNIQUE: 3 view(s) of the lumbar spine were obtained. COMPARISON: X-ray lumbar spine May 01, 2013 FINDINGS: There is no evidence of fracture or dislocation in the lumbar spine. The vertebral body heights and disc spaces are well-maintained. Mild multilevel degenerative changes are present. RAD/Lumbar Spine 2 or 3 Views IMPRESSION: No fracture or dislocation in the lumbar spine. Electronically Signed: Jovi Velásquez, at 17:16 EDT Tel , Service support ,
--- NOTE | 2018-09-24 17:21 | NURSING ---
1719 DR STEVENS PAGED, HE CALLED BACK
[2018-09-24 17:48] LABS: Absolute Lymphocyte Count 0.58 X10^3/ul (0.83-4.51); Absolute Neutrophil Count 4.6 X10^3/uL (2.0-7.7); Basophil# 0.01 X10^3/uL; Basophil% 0.2 % (0-1); Differential Indicated SCAN CRITERIA MET; Hematocrit 27.4 % (37-47); Hemoglobin 9.3 g/dl (12.0-15.0); Lymphocyte # 0.58 X10^3/ul (4.0); Lymphocyte % 10.1 % (19-41); Mean Corp Hgb Conc 33.9 g/gl (32-36); Mean Corpuscular Hgb 28.4 pg (27.0-32.0); Mean Corpuscular Volume 83.8 fL (81-99); Mean Platelet Vol. 8.5 fl (6.2-12.0); Monocyte# 0.52 X10^3/uL; Monocyte% 9.1 % (0-10); Neutrophil % 80.3 % (47-70); POSITIVE COUNT NO; POSITIVE DIFFERENTIAL YES; POSITIVE MORPHOLOGY NO; Platelet Count 131 K/mm3 (150-450); RBC Distribution Width CV 15.2 % (11.6-14.6); RBC Distribution Width SD 46.4 fl (35.1-43.9); Red Blood Count 3.27 M/mm3 (4.2-5.4); White Blood Count 5.7 K/mm3 (4.4-11.0)
--- NOTE | 2018-09-24 17:52 | ED.VISSUMM ---
- ER Visit Summary Date of Service: 09/24/18 Chief Complaint: Weakness History of Present Illness: The patient is a 43 F with a history of end-stage renal disease. She was discharged from the hospital today. She was orthostatic hypotensive and started on Midrin. She was discharged and arrived at her parents house. She was using her rolling walker. She then attempted to go up steps and her legs gave out. She fell backwards. She hit her head and back. She did not lose consciousness. Denies any other new or associated symptoms. Physical Examination: Afebrile vital signs unremarkable except for a blood pressure of 181/95. Head and neck atraumatic. Neck is nontender. Heart slightly tachycardic but regular. Lungs clear. Abdomen soft. No focal or lateralizing neurologic abnormalities. Test Results: EKG showed sinus rhythm at a rate of 91. Lumbar x-rays normal. CT brain normal. Labs pending. Emergency Department Course and Treatment: Patient was orthostatic positive. She had symptoms with sitting up. She was placed on a monitor. Work-up as above. Patient failed discharge plan. She believes she is unsafe to go home. I advised that she may need placement. I spoke with her baseball umpire for little league who had no further recommendations. I did call the hospitalist who had discharged her and he will observe her for placement. Treatment Plan: As above Disposition: Admission Impression: 1. Fall 2. End-stage renal disease This note was generated with [employer] dictation software. It may contain incorrect words, spelling, and punctuation that were not noted in review of the chart prior to signing ED Disposition - Plan for ED Patient: Referrals: Melvi Eastman MD [Primary Care Provider] -
--- NOTE | 2018-09-24 17:54 | NURSING ---
MED SURG OBS WEAKNESS, ESRD RODNEY
--- NOTE | 2018-09-24 17:55 | CM.ED ---
Social Work Assessment Referral Date: 09/24/18 Date of Assessment: 09/24/18 Informant: DR. CALDERON Reason for Consult: DISCHARGE PLANNING Information obtained from: PATIENT AND PATIENT'S MOTHER, LOGAN Living Arrangements: PATIENT LIVES HOME ALONE IN AN APARTMENT WITH NO STEPS TO ENTER. Employment/Financial: UNEMPLOYED Supports: PATIENT HAS GOOD SUPPORT FROM FAMILY. PATIENT RECEIVES DIALYSIS, T/TH/SAT[facility] ASSISTS WITH TRANSPORTATION NEEDS. Social/Family Stressors: PATIENT DOES NOT FEEL SAFE RETURNING HOME ALONE D/T FALLS. PATIENT STATES LEGS JUST GIVE OUT AND SHE COLLAPSES. PATIENT CONCERNED ABOUT WHAT IS CAUSING THE FALLS. MUCH EMOTIONAL SUPPORT PROVIDED. Mental Health History: PATIENT REPORTS HX OF DEPRESSION AND STATES IS TREATED WITH MEDICATION. PATIENT FOLLOWS WITH THE COUNSELING CENTER. Substance Abuse History: NONE PER PATIENT Interventions: SOCIAL SERVICE ASSESSMENT EDUCATION ON SNF REFERRAL, INSURANCE AUTHORIZATION AND REVIEWED FACILITIES, [address]ST CHO[address] [facility] AND 2ND CHOICE [facility]. Assessment: PATIENT IS A 43 Y/O FEMALE WHO PRESENTS TO ED D/T FALL. PATIENT AND MOTHER STATE PATIENT WAS JUST D/C'ED FROM THE HOSPITAL TODAY. PATIENT WAS AT THE [facility] HAVING BLOOD WORK DONE FOR SURGERY ON SATURDAY AND WHEN SHE ARRIVED AT MOTHER'S HOUSE AND GOT OUT OF THE CAR, HER LEGS GAVE OUT AND SHE COLLAPSED. PATIENT STATES HIT HER HEAD. DR. STEVENS ARRIVED TO PATIENT'S ROOM WHILE THIS WORKER COMPLETING ASSESSMENT. DR. STEVENS DISCUSSED PLAN FOR ADMISSION WITH RECOMMENDATION FOR SNF. PATIENT WITH DIALYSIS SCHEDULE OF T/TH/SAT. REVIEWED LOCAL FACILITIES AND DISCUSSED PROCESS FOR PRECERT. PATIENT REQUESTING REFERRAL TO THE [facility] CHOICE AND [facility] SECOND CHOICE. SOCIAL WORK TO FOLLOW FOR D/C PLANNING NEEDS. UPDATED DR. CALDERON ON THE ABOVE. PLAN: ADMIT
[2018-09-24 18:00] VITALS: BMI 47.3
[2018-09-24 18:01] LABS: Anion Gap 9 (5-15); BUN 57 mg/dL (7-18); BUN/Creat Ratio 8.7 RATIO (10-20); Calcium,Total 7.6 mg/dL (8.5-10.1); Chloride 104 mmol/L (98-107); Creatinine, Serum 6.58 mg/dL (0.55-1.02); EST Glomerular Filtration Rate 7 mL/min (>60); Est Glom Filt Rate - Afr Amer 9 mL/min (>60); Estimated Creatinine Clearance 8.72 ml/min; Glucose 96 mg/dL (74-106); Potassium 4.8 mmol/L (3.5-5.1); Sodium Level 136 mmol/L (136-145)
[2018-09-24 18:08] VITALS: BMI 46.3
[2018-09-24 18:13] LABS: Differential Comment SCANNED
[2018-09-24 18:14] VITALS: RESP 18
--- NOTE | 2018-09-24 18:18 | MRI_ITS ---
STUDY: MRI BRAIN WITHOUT CONTRAST REASON FOR EXAM: Female, 43 years old. Weakness and falls. TECHNIQUE: Standardized multiplanar fat and water weighted pulse sequences were obtained. COMPARISON: None. FINDINGS: Normal size of the ventricles and extra-axial spaces for the patient's age. Normal white matter tracts of the supratentorial brain. There is no evidence for recent intracranial ischemia or other cause of cytotoxic edema on diffusion weighted imaging (DWI). Normal T2* images of the brain without demonstrated susceptibility artifact. There is no demonstrated hemosiderin stain. Normal bilateral basal ganglia. Normal thalami. There is no extra-axial fluid accumulation. Normal flow voids within the major intracranial circulation suggesting patency by spin echo criteria. Normal sella turcica, pituitary gland, infundibular stalk, optic chiasm and hypothalamus. Normal tectal plate and pineal gland. Normal midbrain, gaby and medulla. Normal cerebellum. Normal basal cisterns. Normal bilateral temporal bones. Normal bilateral internal auditory canals. No demonstrated orbital abnormality, within the constraints of a routine brain study. Normal visualized paranasal sinuses. Normal calvarium and skull base. Normal visualized soft tissue structures. Normal visualized upper cervical spine. MRI/Brain without Contrast IMPRESSION: No evidence of acute intracranial bleed, mass or ischemia. Electronically Signed: Franklin Snow DO at 0:19 EDT , Service support ,
[2018-09-24 18:40] VITALS: BP 159/87; PULSE 86; RESP 16; TEMP 37; O2SAT 100
--- NOTE | 2018-09-24 19:33 | PCM.HP.STD ---
Problem List (1) Generalized weakness Status: Acute (2) Debility Status: Acute History of Present Illness Date of Admission: 09/24/18 Chief Complaint: Generalized weakness, debility The patient is a 43 year old F who was seen in the emergency room at [facility] after falling to the ground this afternoon when she was standing outside her residence. Patient states that her legs became extremely weak and she collapsed. Patient struck the back of her head and her lower back, patient denied any syncope, she denied any lightheadedness, and she denied any vertiginous symptoms of any note. Patient had been discharged from the hospital earlier today after staying in the hospital 2 days with similar symptoms, during that hospitalization, patient was seen by PT and OT and they felt that the patient did not require inpatient physical therapy services. It was felt that the patient may be hypotensive and so she was discharged on midodrine today. Patient's labs obtained in the emergency room revealed a hemoglobin of 9.3, creatinine was 6.58, BUN was 57. CT of the brain and lumbar spine x-ray showed no acute process. During her hospitalization over the last 2 days, patient had imaging studies done of the thoracic and lumbar spine with MRI which showed no significant process that would cause patient to have leg weakness. Patient will be placed in observation status again on MedSurg 3 for generalized weakness and falls, she will be monitored on telemetry, she will see PT and OT, nephrology will be consulted again, and I have decided to keep the patient off of Lyrica. She states the Lyrica really does not help her neuropathy. In addition, I will perform an MRI of the brain to rule out intracranial pathology. Past Medical History Past Medical History (Chronic Problems): Chronic Problems (Last Reviewed 09/23/18 @ 10:30 by Fahad Parker MD) ESRD (end stage renal disease) (Chronic) Chronic renal failure, stage 4 (severe) (Chronic) Morbid obesity (Chronic) HTN (hypertension) (Chronic) Bilateral hydronephrosis (Chronic) Iron deficiency anemia (Chronic) Type II diabetes mellitus (Chronic) Coronary artery disease (Chronic) Chronic low back pain (Chronic) Hydroureter (Chronic) Bladder outlet obstruction (Chronic) Medical History: Medical History (Last Reviewed 09/23/18 @ 10:30 by Fahad Parker MD) Chronic renal failure, stage 4 (severe) (Chronic) N18.4 Anemia D64.9 Anxiety and depression F41.8 Back problem M53.9 Carpal tunnel syndrome G56.00 Diabetes type 2, controlled E11.9 H/O nephrolithotomy with removal of calculi Z98.890, Z87.442 H/O transfusion of whole blood Z92.89 Headache R51 Heart disease I51.9 Hives L50.9 Kidney disease N28.9 Kidney failure N19 Kidney stone N20.0 Neuropathy G62.9 Recurrent infections B99.9 Seasonal allergies J30.2 UTI (urinary tract infection) N39.0 Vitamin deficiency E56.9 HTN (hypertension) I10 Allergies ciprofloxacin [From Cipro] Adverse Reaction (Verified 09/24/18 16:43) Vomiting contrast dye Allergy (Severe, Uncoded 08/28/18 22:40) Anaphylaxis Home Medications: Ambulatory Orders Medication Instructions Recorded Ergocalciferol [Vitamin D] 50,000 unit PO WE 04/18/17 Hydrocodone/Acetaminophen [[place] 1 ea PO Q6H PRN PRN 02/28/18 5-325 Tablet] Venlafaxine XR [Effexor Xr] 150 mg PO DAILY 02/28/18 Aspirin E.C. [Ecotrin] 81 mg PO DAILY@0800 07/15/18 Nortriptyline HCl [Pamelor] 50 mg PO QHS 07/15/18 Pregabalin [Lyrica] 50 mg PO BID 07/15/18 Bupropion HCl [Bupropion Xl] 300 mg PO DAILY 09/22/18 Midodrine HCl [Proamatine] 2.5 mg PO DAILY #30 tab 09/24/18 Surgical History: Surgical History (Last Reviewed 09/23/18 @ 10:30 by Fahad Parker MD) H/O heart artery stent Z95.5 History of carpal tunnel surgery Z92.89 Presence of surgically created arteriovenous shunt for hemodialysis Z99.2 Surgical History: - - PCI, bilateral ureteral stent placements and removal, AVF creation, tunnel intervention, port placement. Psychiatric History: Anxiety, Depression CURING FINISHER History: No pertinent CURING FINISHER history Lives: With Family Smoking Status: Never smoker Tobacco Use: Non-smoker Alcohol: None Drugs: None - *Family History Maternal History Items: Unknown - Patient was adopted and she does not know her family of origin to be able to provide any family medical history. Paternal History Items: Unknown - Patient was adopted and she does not know her family of origin to be able to provide any family medical history. Review of Systems Constitutional: Reports: Weakness. Denies: Anorexia, Chills, Fever, Night Sweats, Malaise, Weight Change Eyes: Denies: Cataracts, Conjunctivae Inflammation, Double vision, Drainage HEENT: Denies: Difficulty Swallowing, Dysphasia, Ear Pain, Eye Pain, Hearing Changes, Nasal bleeding, Nasal Congestion Cardiovascular: Denies: Chest Pain, Claudication, Chest Pressure, Chest Tightness, Edema, Heaviness, Palpitations Respiratory: Denies: Cough, Hemoptysis, Pleuritic Pain, Shortness of Breath, Shortness of breath at rest, Shortness of breath upon exertion Gastrointestinal: Denies: Abdominal Pain, Constipation, Diarrhea, Hematemesis, Hematochezia, Nausea, Melena, Vomiting Genitourinary: Denies: Dysuria, Frequency, Hematuria, Hesitancy, Urgency Gynecological: Denies: Breast symptoms Musculoskeletal: Denies: Back Pain, Foot Pain, Hand Pain, Joint Pain, Joint stiffness, Joint swelling, Joint Tenderness, Leg Pain Skin: Denies: Dryness, Jaundice, Pruritis, Rash Neurological: Denies: Blurred vision, Double vision, Change in Speech, Slurred speech, Difficulty swallowing, Focal weakness, Headaches, Incoordination, Numbness, Tingling Psychiatric: Reports: Depression. Denies: Homicidal Ideations, Suicidal Ideations Endocrine: Denies: Change in Body Habitus, Heat/ Cold Intolerance, Polydipsia, Polyuria Hematologic/ Lymphatic: Reports: Anemia. Denies: Adenopathy, Easy Bruising, Easy Bleeding, Petechiae, Purpura VTE Information - Inpt Only VTE Present on Admission: No VTE Mechan Device Prophylaxis: None VTE Pharm Prophylaxis ordered?: No Patient Problems: Active and Suspected Problems (Last Reviewed 09/23/18 @ 10:30 by Fahad Parker MD) Generalized weakness (Acute) Debility (Acute) - Physical Exam General: Alert, Oriented x3, Cooperative, No apparent distress, Well developed HEENT: Atraumatic, PERRLA, EOMI, Normocephalic Oral: Moist Mucosa Neck: Supple, No Nuchal Rigidity, Trachea Midline, Thyroid Normal Size and Texture Lungs: Clear to auscultation, Normal air movement, No rhonchi, No wheeze, No rales, Diminished, Rales Cardiovascular: Regular rate, Regular Rhythm, Normal S1, Normal S2, No murmurs, No Ectopic Activity Abdomen: Bowel Sounds Present, Soft, Non Tender, Non-Distended, Obese, No hernias noted Extremities: No clubbing, No cyanosis, No edema, Capillary Refill Less than 3 Seconds Neurological: Cranial nerves II-XII grossly intact, Neuro grossly intact, Sensory exam intact to light touch and pain, Coordination normal Psych/Mental Status: Normal Affect, Appropriate, Alert and oriented to time, place, person, mood and affect Vital Signs Temp Pulse Resp BP Pulse Ox 98.6 F 86 16 159/87 H 100 09/24/18 18:40 09/24/18 18:40 09/24/18 18:40 09/24/18 18:40 09/24/18 18:40 Oxygen Delivery Method Room Air Weight: 114.94 kg Body Mass Index (BMI) 46.3 Finger Stick Blood Glucose 98 Laboratory Tests Past 24 Hrs 09/24/18 09/24/18 16:50 16:50 WBC 5.7 RBC 3.27 L Hgb 9.3 L Hct 27.4 L MCV 83.8 MCH 28.4 MCHC 33.9 RDW 15.2 H RDW Differential 46.4 H Plt Count 131 L MPV 8.5 Immature Gran % (Auto) 0.300 Neut % (Auto) 80.3 H Lymph % (Auto) 10.1 L [place] % (Auto) 9.1 Eos % (Auto) 0.0 Baso % (Auto) 0.2 Absolute Neuts (auto) 4.6 Absolute Lymphs (auto) 0.58 L Total Counted Not Reportable Differential Comment SCANNED Sodium 136 Potassium 4.8 Chloride 104 Carbon Dioxide 23.0 Anion Gap 9 BUN 57 H Creatinine 6.58 H Estim Creat Clear Calc 8.72 Est GFR (MDRD) Af Amer 9 L Est GFR (MDRD) Non-Af 7 L BUN/Creatinine Ratio 8.7 L Glucose 96 Calcium 7.6 L Troponin I < 0.015 Assessment/Plan All Active Problems (Last Reviewed 09/23/18 @ 10:30 by Fahad Parker MD) Lower extremity weakness (Acute) Generalized weakness (Acute) Debility (Acute) Syncope (Acute) Orthostatic hypotension (Acute) #1 generalized weakness-episodic in nature, etiology unclear at this point, patient will be seen again by PT and OT, we will try to get the patient approved for temporary placement in a group home facility. 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
--- NOTE | 2018-09-24 19:35 | NURSING ---
Pt taken to MRI.
[2018-09-24] MEDS: HYDROcodone Bitartrate/Apap 5/325 Tablet PO (22:07)
[2018-09-24] MEDS: Insulin Lispro 100 UNIT/ML INSULN.PEN SC (22:08)
[2018-09-24] MEDS: Nortriptyline 25 MG Capsule 50 MG PO (22:08)
[2018-09-24 22:11] VITALS: BP 115/59; BP 118/85; BP 66/35; PULSE 87; PULSE 88; PULSE 90; RESP 16; TEMP 37; O2SAT 100
[2018-09-24 22:20] LABS: Bedside Glucose 155 mg/dL (70-110)
[2018-09-24 23:36] VITALS: PULSE 82
[2018-09-25] VITALS (12 sets, daily range): BP systolic 116–154; BP diastolic 49–106; PULSE 73–98; RESP 16–18; TEMP 36.6–37.1; O2SAT 98–100
[2018-09-25 00:20] LABS: Bedside Glucose 91 mg/dL (70-110)
[2018-09-25] MEDS: HYDROcodone Bitartrate/Apap 5/325 Tablet PO ×2 (04:32→19:46)
[2018-09-25 05:52] LABS: Anion Gap 13 (5-15); BUN 66 mg/dL (7-18); BUN/Creat Ratio 9.3 RATIO (10-20); Calcium,Total 7.9 mg/dL (8.5-10.1); Chloride 105 mmol/L (98-107); Creatinine, Serum 7.12 mg/dL (0.55-1.02); EST Glomerular Filtration Rate 7 mL/min (>60); Est Glom Filt Rate - Afr Amer 8 mL/min (>60); Estimated Creatinine Clearance 8.06 ml/min; Glucose 118 mg/dL (74-106); Potassium 4.5 mmol/L (3.5-5.1); Sodium Level 139 mmol/L (136-145)
[2018-09-25 06:45] LABS: Bedside Glucose 145 mg/dL (70-110)
--- NOTE | 2018-09-25 08:57 | PCM.PN.REN ---
Patient Problems: Active and Suspected Problems (Last Reviewed 09/23/18 @ 10:30 by Fahda Parker MD) Generalized weakness (Acute) Debility (Acute) Subjective: seen on dialysis. BP stable. Fell at home on grass walking up steps in front of her mom's house. Unable to get up. Squad called. CT head no acute findings. - Physical Exam General: Alert, Oriented x3, Cooperative, No apparent distress Lungs: Clear to auscultation Cardiovascular: Regular rate Abdomen: Bowel Sounds Present, Soft, Non Tender, Obese Extremities: No edema Psych/Mental Status: Normal Affect, Appropriate, Alert and oriented to time, place, person, mood and affect Vital Signs Temp Pulse Resp BP Pulse Ox 97.8 F 76 16 151/80 H 99 09/25/18 04:25 09/25/18 04:25 09/25/18 04:25 09/25/18 04:25 09/25/18 04:25 Oxygen Delivery Method Room Air Weight: 116.6 kg Body Mass Index (BMI) 46.3 Finger Stick Blood Glucose 98 Orthostatic Vital Signs Start: 09/24/18 22:11 Freq: q24h Status: Active Protocol: Activity Type Activity Date Activity User E-Sign Co-Sign Detail Recorded Client Recorded Date Recorded By Document 09/24/18 22:11 [facility] [id number] 09/24/18 22:12 [facility] 09/24/18 22:11 Orthostatic Vitals Lying -Blood Pressure (90/60-120/80) 115/59 L -Extremity Use Left Arm -Pulse Rate (60-100) 87 Standing -Blood Pressure (90/60-120/80) 66/35 L -Extremity Use Left Arm -Pulse Rate (60-100) 90 Sitting -Blood Pressure (90/60-120/80) 118/85 H -Extremity Use Left Arm -Pulse Rate (60-100) 88 Intake and Output for Last 24 Hours 09/23/18 09/24/18 09/25/18 23:59 23:59 23:59 Intake Total 940 / 940 Balance 940 / 940 Laboratory Tests Past 24 Hrs 09/24/18 09/24/18 09/25/18 16:50 16:50 05:32 WBC 5.7 RBC 3.27 L Hgb 9.3 L Hct 27.4 L MCV 83.8 MCH 28.4 MCHC 33.9 RDW 15.2 H RDW Differential 46.4 H Plt Count 131 L MPV 8.5 Immature Gran % (Auto) 0.300 Neut % (Auto) 80.3 H Lymph % (Auto) 10.1 L [place] % (Auto) 9.1 Eos % (Auto) 0.0 Baso % (Auto) 0.2 Absolute Neuts (auto) 4.6 Absolute Lymphs (auto) 0.58 L Total Counted Not Reportable Differential Comment SCANNED Sodium 136 139 Potassium 4.8 4.5 Chloride 104 105 Carbon Dioxide 23.0 21.0 Anion Gap 9 13 BUN 57 H 66 H Creatinine 6.58 H 7.12 H Estim Creat Clear Calc 8.72 8.06 Est GFR (MDRD) Af Amer 9 L 8 L Est GFR (MDRD) Non-Af 7 L 7 L BUN/Creatinine Ratio 8.7 L 9.3 L Glucose 96 118 H Calcium 7.6 L 7.9 L Troponin I < 0.015 POC Glucose 09/25/18 09/24/18 09/24/18 06:40 21:45 18:45 POC Glucose 145 H 155 H 91 Clinical Impression(s) from Imaging Studies Brain CT 09/24/18 16:47 IMPRESSION: No acute intracranial abnormality. Electronically Signed: Jovi Velásquez, at 17:14 EDT Tel , Service support , Lumbar Spine X-Ray 09/24/18 17:03 IMPRESSION: No fracture or dislocation in the lumbar spine. Electronically Signed: Jovi Velásquez, at 17:16 EDT Tel , Service support , Brain MRI 09/24/18 18:18 IMPRESSION: No evidence of acute intracranial bleed, mass or ischemia. Electronically Signed: Franklin Snow DO at 0:19 EDT , Service support , Medical Necessity - Tobacco Use Smoking Status: Never smoker Tobacco Use: Non-smoker Assessment/Plan All Active Problems (Last Reviewed 09/23/18 @ 10:30 by Fahad Parker MD) Lower extremity weakness (Acute) Generalized weakness (Acute) Debility (Acute) Syncope (Acute) Orthostatic hypotension (Acute) 1. ESRD HD today and TTS 2. Anemia VIVIAN on dialysis 3. Obstructive uropathy 4. DM2 5. Orthostatic hypotension on midodrine 6. Debilitation/fall rehab eval.
--- NOTE | 2018-09-25 09:34 | CASEMGMT ---
Social Work Note Per RAIZA notes in ED, pt's first choice for SNF is [facility] and second choice is [facility]. SW attempted to call Sarah at [facility] but she is currently out of the building. SW will attempt to call Sarah again shortly. Pt is on dialysis and pt's schedule is , , S at 6:00am. SW spoke with PT/OT to evaluate pt as soon as possible as pt will need pre-cert for SNF. PT/OT to evaluate pt. SW to continue to follow along. Plan: SNF pending acceptance and pre-cert Josefina Rose FOOD AND BEVERAGE CHECKER, SWITCHBOARD AND CONTROL ROOM OPERATOR
[2018-09-25] MEDS: Venlafaxine XR 150 MG Capsule PO (10:08)
[2018-09-25] MEDS: Aspirin E.C. 81 MG Tablet PO (10:08)
[2018-09-25] MEDS: buPROPion (XL) 300 MG TABLET.XL PO (10:09)
[2018-09-25] MEDS: Midodrine HCl 5 MG Tablet 2.5 MG PO (10:10)
[2018-09-25] MEDS: Nepro Liquid 120 ML LIQUID PO ×3 (10:34→22:25)
--- NOTE | 2018-09-25 12:22 | DIALYSIS ---
Hemodialysis x 3.5 hours with 3K bath; Tolerated well. Removed = -2200; RIJ CVC capped & locked with heparin per lumen fill volume. Report given.
--- NOTE | 2018-09-25 14:00 | CASEMGMT ---
Addendum entered by Josefina Rose 09/25/18 15:25: SW did fax referral to [facility], SW is still waiting for PT/OT evaluations. Original Note: Social Work Note SW met with pt, introduced self and role at [facility]. PT is alert and orientated x4. Pt's mother Veronica is present in room. Pt gave this worker permission to speak to her in front of her guest. SW asked pt about discharge plans. Pt states going to a correction is the last thing I want to do. Pt states that she wants a diagnosis of what is wrong with her. Pt's mother Veronica mentioned if [facility] is unable to find out what is wrong with pt, then pt can be transferred to [facility]. Pt and Veronica requesting to speak with hospitalist. SW informed Veronica and pt that this worker can call hospitalist and ask if he is able to speak with pt and Veronica. Veronica states she would like hospitalist to be in pt's room by 2:15pm or hospitalist will need to call her. SW again informed Veronica that this worker will ask physician to meet with her and pt. SW did update pt that [facility] is not in network pt's insurance but that her insurance was willing to try a one time contract. SW informed pt that one time contract would need to be approved before pt is able to discharge. SW educated pt that pt will need to be evaluated by PT/OT to determine if SNF is needed for pt. SW explained referral process and that pre-cert will need to be obtained. Pt states understanding. SW spoke with physician and updated him on pt's and pt's mother request to speak with him by 2:15pm. Physician states he will speak with pt and Veronica. Plan: TBD Josefina Rose MEDIA CONSULTANT, DIRECTOR EMPLOYEE SAFETY AND HEALTH
[2018-09-25] MEDS: Insulin Lispro 100 UNIT/ML INSULN.PEN SC (15:48)
[2018-09-25 15:55] LABS: Bedside Glucose 152 mg/dL (70-110)
--- NOTE | 2018-09-25 16:33 | PCM.PROGNOTE ---
Patient Problems: Active and Suspected Problems (Last Reviewed 09/23/18 @ 10:30 by Fahad Parker MD) Generalized weakness (Acute) Debility (Acute) Subjective: Patient seen and examined today, had a discussion with her mother who is in the room also about her medical care. Patient had an orthostatic blood pressure drop last night down to a systolic blood pressure of 80 when she stood up, today the patient is not orthostatic. At the time of this dictation, physical therapy has not seen the patient today, the mother wondered if the patient should be transferred to [facility], I told her I could try to get the patient transferred but it was unlikely the clinic would take the patient due to her symptoms. I suggested that we continue to provide supportive care and have the patient walk with physical therapy, patient's MRI of the brain did not show any evidence of stroke or neoplastic process. - Physical Exam General: Alert, Oriented x3, Cooperative, No apparent distress, Well developed, Well nourished HEENT: Atraumatic, PERRLA, EOMI, Normocephalic Oral: Moist Mucosa Neck: Supple, No JVD, Negative Carotid Bruits, Trachea Midline, Thyroid Normal Size and Texture Lungs: Clear to auscultation, Normal air movement, No rhonchi, No wheeze, No rales, Diminished, Rales Cardiovascular: Regular rate, Normal S1, Normal S2, No murmurs, No Ectopic Activity, PMI Normal, No rub noted, No Gallop Abdomen: Bowel Sounds Present, Soft, Non Tender, Non-Distended, Obese Extremities: No edema, Capillary Refill Less than 3 Seconds Skin: No rashes, No breakdown Musculoskeletal: No Tenderness to Palpation of Joints or Extremities Neurological: Cranial nerves II-XII grossly intact, Neuro grossly intact, Sensory exam intact to light touch and pain, Coordination normal Psych/Mental Status: Normal Affect, Appropriate, Alert and oriented to time, place, person, mood and affect Vital Signs Temp Pulse Resp BP Pulse Ox 98.5 F 98 18 146/106 H 100 09/25/18 14:39 09/25/18 15:33 09/25/18 14:39 09/25/18 15:33 09/25/18 14:39 Oxygen Delivery Method Room Air Weight: 116.6 kg Body Mass Index (BMI) 46.3 Finger Stick Blood Glucose 98 Orthostatic Vital Signs Start: 09/24/18 22:11 Freq: q24h Status: Active Protocol: Activity Type Activity Date Activity User E-Sign Co-Sign Detail Recorded Client Recorded Date Recorded By Document 09/25/18 15:33 Lolly [id number] 09/25/18 15:34 CJY 09/25/18 15:33 Orthostatic Vitals Lying -Blood Pressure (90/60-120/80) 143/76 H -Extremity Use Left Arm -Pulse Rate (60-100) 85 Standing -Blood Pressure (90/60-120/80) 154/54 H -Extremity Use Left Arm -Pulse Rate (60-100) 86 Sitting -Blood Pressure (90/60-120/80) 146/106 H -Extremity Use Left Arm -Pulse Rate (60-100) 98 Intake and Output for Last 24 Hours 09/23/18 09/24/18 09/25/18 23:59 23:59 23:59 Intake Total 940 / 940 Output Total 4400 / 4400 Balance -3460 / -3460 Laboratory Tests Past 24 Hrs 09/24/18 09/24/18 09/25/18 16:50 16:50 05:32 WBC 5.7 RBC 3.27 L Hgb 9.3 L Hct 27.4 L MCV 83.8 MCH 28.4 MCHC 33.9 RDW 15.2 H RDW Differential 46.4 H Plt Count 131 L MPV 8.5 Immature Gran % (Auto) 0.300 Neut % (Auto) 80.3 H Lymph % (Auto) 10.1 L Grady % (Auto) 9.1 Eos % (Auto) 0.0 Baso % (Auto) 0.2 Absolute Neuts (auto) 4.6 Absolute Lymphs (auto) 0.58 L Total Counted Not Reportable Differential Comment SCANNED Sodium 136 139 Potassium 4.8 4.5 Chloride 104 105 Carbon Dioxide 23.0 21.0 Anion Gap 9 13 BUN 57 H 66 H Creatinine 6.58 H 7.12 H Estim Creat Clear Calc 8.72 8.06 Est GFR (MDRD) Af Amer 9 L 8 L Est GFR (MDRD) Non-Af 7 L 7 L BUN/Creatinine Ratio 8.7 L 9.3 L Glucose 96 118 H Calcium 7.6 L 7.9 L Troponin I < 0.015 POC Glucose 09/25/18 09/25/1819 15:47 06:40 21:45 POC Glucose 152 H 145 H 155 H 09/24/18 18:45 POC Glucose 91 Medical Necessity - Tobacco Use Smoking Status: Never smoker Tobacco Use: Non-smoker Assessment/Plan All Active Problems (Last Reviewed 09/23/18 @ 10:30 by Fahad Parker MD) Lower extremity weakness (Acute) Generalized weakness (Acute) Debility (Acute) Syncope (Acute) Orthostatic hypotension (Acute) #1 generalized weakness-episodic in nature, etiology unclear at this point, patient will be seen again by PT and OT, we will try to get the patient approved for temporary placement in a group home facility. 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
[2018-09-25] MEDS: Nortriptyline 25 MG Capsule 50 MG PO (22:25)
[2018-09-25 22:51] LABS: Bedside Glucose 120 mg/dL (70-110)
[2018-09-26] VITALS (11 sets, daily range): BP systolic 91–169; BP diastolic 55–80; PULSE 68–86; RESP 16; TEMP 36.4–36.7; O2SAT 95–100
[2018-09-26 00:50] LABS: Bedside Glucose 147 mg/dL (70-110)
[2018-09-26] MEDS: HYDROcodone Bitartrate/Apap 5/325 Tablet PO ×2 (01:34→16:29)
[2018-09-26 07:00] LABS: Bedside Glucose 114 mg/dL (70-110)
[2018-09-26] MEDS: Aspirin E.C. 81 MG Tablet PO (08:04)
--- NOTE | 2018-09-26 08:50 | CASEMGMT ---
Addendum entered by Josefina Rose 09/26/18 09:29: SW received message from Sarah at [facility] stating [facility] is not able to provide one time contract with their facility. SW also received message from Ivania at [facility] stating again that they are not able to do one time contract with [facility] and pt will need to go to an in network SNF. Original Note: Social Work Note SW received message from Sarah at [facility] stating she submitted initial referral to pt's insurance to determine if they will approve a one time contract. RAIZA faxed PT/OT evaluations to SNF. Plan: TBD. Pt wishes to discharge home but may go to SNF. Josefina Rose BACKING IN MACHINE TENDER, SKI TOP TRIMMER
--- NOTE | 2018-09-26 10:26 | CASEMGMT ---
Addendum entered by Josefina Rose 09/26/18 11:53: SW informed Ann at [facility] of dialysis time for pt. Original Note: Social Work Note SW met with pt and updated pt that [facility] is not able to do one time contract with [facility]. SW asked pt if this worker can send initial referral to [facility] as this is pt's second choice for SNF from previous notes. Pt agrees to this worker sending initial referral to [facility] but also states again that her first choice is to go home at discharge. SW explained that process can be started for SNF in the event that SNF is needed but informed pt that she can choose to go home at discharge and not to SNF. Pt states understanding. SW faxed initial referral to [facility]. RAIZA placed a call to Ann at [facility] and provided referral. RAIZA updated Ann on dialysis and Ann states she was under the impression that [employer] won't transport pt to dialysis if they are skilled at a facility. RAIZA informed Ann that pt's first choice is to go home at discharge but SNF is back up plan. Ann states understanding. RAIZA placed a call to [facility] and spoke with Alisha. Per Alisha if pt goes to SNF then SNF has to pay for transportation. RAIZA faxed referral to Ann at [facility]. Plan: Home vs. SNF Josefina Rose CALL OR CONTACT CENTRE TEAM LEADER, MARINA MANAGER
[2018-09-26] MEDS: buPROPion (XL) 300 MG TABLET.XL PO (10:48)
[2018-09-26] MEDS: Midodrine HCl 5 MG Tablet 2.5 MG PO ×2 (10:48→17:11)
[2018-09-26] MEDS: Venlafaxine XR 150 MG Capsule PO (10:48)
[2018-09-26] MEDS: Nepro Liquid 120 ML LIQUID PO (10:58)
[2018-09-26] MEDS: Insulin Lispro 100 UNIT/ML INSULN.PEN SC (11:09)
[2018-09-26 11:20] LABS: Bedside Glucose 193 mg/dL (70-110)
--- NOTE | 2018-09-26 13:10 | PCM.PROGNOTE ---
Patient Problems: Active and Suspected Problems (Last Reviewed 09/23/18 @ 10:30 by Fahad Parker MD) Generalized weakness (Acute) Debility (Acute) Subjective: Pt walked 80 feet with therapy. She complains of right lower back pain that started when she fell. She does report severe neuropathy that she has had for years. She cannot feel anything below her mid ankle. She has dry cracked skin of the lower legs, and calluses on her feet. She has never seen a salt grinder. She reports her last A1C was <6, however she admits for many years she did not take her disease seriously and had very poor control frequently running higher than her glucometer would register. - Physical Exam General: Alert, Oriented x3, Cooperative HEENT: Atraumatic, PERRLA, EOMI, Normocephalic Neck: Supple, No JVD, Negative Carotid Bruits Lungs: Clear to auscultation, Normal air movement Cardiovascular: Regular rate, No murmurs Abdomen: Bowel Sounds Present, Soft, Non Tender Extremities: No edema, Capillary Refill Less than 3 Seconds Skin: No rashes, No breakdown, - - dry skin BL LE. calluses. No acute cellulitic changes. Musculoskeletal: No Tenderness to Palpation of Joints or Extremities Neurological: Cranial nerves II-XII grossly intact Psych/Mental Status: Normal Affect, Appropriate, Alert and oriented to time, place, person, mood and affect Vital Signs Temp Pulse Resp BP Pulse Ox 97.9 F 73 16 169/71 H 100 09/26/18 08:24 09/26/18 10:00 09/26/18 08:24 09/26/18 08:24 09/26/18 08:24 Oxygen Delivery Method Room Air Weight: 257 lb 7.999 oz Body Mass Index (BMI) 46.3 Finger Stick Blood Glucose 98 Orthostatic Vital Signs Start: 09/24/18 22:11 Freq: BID Status: Active Protocol: Activity Type Activity Date Activity User E-Sign Co-Sign Detail Recorded Client Recorded Date Recorded By Document 09/25/18 15:33 CJY [id number] 09/25/18 15:34 MIMIY 09/25/18 15:33 Orthostatic Vitals Lying -Blood Pressure (90/60-120/80) 143/76 H -Extremity Use Left Arm -Pulse Rate (60-100) 85 Standing -Blood Pressure (90/60-120/80) 154/54 H -Extremity Use Left Arm -Pulse Rate (60-100) 86 Sitting -Blood Pressure (90/60-120/80) 146/106 H -Extremity Use Left Arm -Pulse Rate (60-100) 98 Intake and Output for Last 24 Hours 09/24/18 09/25/18 09/26/18 23:59 23:59 23:59 Intake Total 940 / 1340 500 / 500 Output Total 4400 / 4400 Balance -3460 / -3060 500 / 500 POC Glucose 09/26/18 09/26/18 09/25/18 11:06 06:47 22:20 POC Glucose 193 H 114 H 120 H 09/25/18 09/25/18 15:47 11:09 POC Glucose 152 H 147 H Medical Necessity - Tobacco Use Smoking Status: Never smoker Tobacco Use: Non-smoker Assessment/Plan All Active Problems (Last Reviewed 09/23/18 @ 10:30 by Fahad Parker MD) Lower extremity weakness (Acute) Generalized weakness (Acute) Debility (Acute) Syncope (Acute) Orthostatic hypotension (Acute) 1. Generalized weakness - episodic. MRI brain negative, prior imaging negative. Possibly a combination of factors such as morbid obesity, generalized debility and poor muscle strength and coordination, orthostatic hypotension, severe peripheral neuropathy. She did have ABIs earlier this month with Dr. Goncalves, no PAD. Prior MRI T and L spine negative for acute process to explain her weakness / collapse. 2. Orthostatic hypotension - midodrine 3. ESRD - nephro following. This is 2/2 prior hx of obstructive uropathy secondary to kidney stones 4. CAD-continue aspirin 5. Type 2 diabetes with morbid obesity, severe peripheral neuropathy-continue sliding scale insulin, diabetic diet, Lyrica as held secondary to weakness of unclear etiology 6. Dry gangrene of the left distal fifth digit secondary to fistula steal syndrome 7. Depression-Effexor, Wellbutrin DVT prophylaxis: Early ambulation DC planning: Patient will benefit from placement in custodial for rehab, she is considering whether she wants to pursue this option or possibly go home and follow-up with the [facility] who she thinks may be able to help her in a different manner. This patient was seen by Duncan Conner PA-C under the supervision of Doctor Vickers.
--- NOTE | 2018-09-26 14:24 | CASEMGMT ---
Social Work Note SW received message from Ann at [facility] stating they are unable to accept pt due to transportation to dialysis. SW met with pt. Pt states again that she doesn't want to go to a SNF and she would rather find out what is wrong and go home or discharge from [facility] and drive to [facility]. SW informed pt that she is able to choose to do that if she wishes. Pt states that she would like to discuss it with her parents but again states she doesn't want to go to SNF. SW placed a call to Ann at [facility] and verbally withdrew request for SNF for pt as of right now the plan per the pt is to return home or go to different hospital for second opinion. Plan: Home or to [facility] for second opinion Josefina Rose MSW, HUMAN RESOURCES CLERK
[2018-09-26 16:30] LABS: Bedside Glucose 110 mg/dL (70-110)
[2018-09-26] MEDS: Nortriptyline 25 MG Capsule 50 MG PO (22:31)
[2018-09-26 22:46] LABS: Bedside Glucose 105 mg/dL (70-110)
[2018-09-27 03:58] VITALS: PULSE 77
[2018-09-27 05:39] VITALS: BP 116/90; BP 154/77; BP 167/86; PULSE 81; PULSE 87; PULSE 90; RESP 16; TEMP 36.6; O2SAT 98
[2018-09-27 07:50] LABS: Bedside Glucose 100 mg/dL (70-110)
[2018-09-27 08:00] VITALS: PULSE 82
[2018-09-27 09:00] VITALS: BP 131/69; PULSE 85; RESP 18; TEMP 36.6; O2SAT 97
--- NOTE | 2018-09-27 09:05 | NURSING ---
magnet placer in there setting up. Daily wt obtained. Morning Vitals obtained. This nurse will get Orthostatic vitals once Dialysis is done.
--- NOTE | 2018-09-27 11:08 | PCM.PN.REN ---
Patient Problems: Active and Suspected Problems (Last Reviewed 09/23/18 @ 10:30 by Fahad Parker MD) Generalized weakness (Acute) Debility (Acute) Subjective: SEEN ON DIALYSIS TOLERATING FLUID REMOVAL ABOUT 3L - Physical Exam General: Alert, Oriented x3, Cooperative, No apparent distress Lungs: Clear to auscultation Cardiovascular: Regular rate Abdomen: Bowel Sounds Present, Soft, Non Tender Extremities: No edema Skin: Rash Present - HYPERPIGMENTATION Psych/Mental Status: Normal Affect, Appropriate Vital Signs Temp Pulse Resp BP Pulse Ox 97.8 F 85 18 131/69 H 97 09/27/18 09:00 09/27/18 09:00 09/27/18 09:00 09/27/18 09:00 09/27/18 09:00 Oxygen Delivery Method Room Air Weight: 118.8 kg Body Mass Index (BMI) 46.3 Finger Stick Blood Glucose 98 Orthostatic Vital Signs Start: 09/24/18 22:11 Freq: BID Status: Active Protocol: Activity Type Activity Date Activity User E-Sign Co-Sign Detail Recorded Client Recorded Date Recorded By Document 09/27/18 05:39 LFF [id number] 09/27/18 05:58 LFF 09/27/18 05:39 Orthostatic Vitals Lying -Blood Pressure (90/60-120/80 mm Hg) 167/86 H -Extremity Use Left Arm -Pulse Rate (60-100 beats/min) 87 Standing -Blood Pressure (90/60-120/80 mm Hg) 154/77 H -Extremity Use Left Arm -Pulse Rate (60-100 beats/min) 81 Sitting -Blood Pressure (90/60-120/80 mm Hg) 116/90 H -Extremity Use Left Arm -Pulse Rate (60-100 beats/min) 90 Intake and Output for Last 24 Hours 09/25/18 09/26/18 09/27/18 23:59 23:59 23:59 Intake Total 940 / 1340 1532 / 1532 400 / 400 Output Total 4400 / 4400 300 / 300 400 / 400 Balance -3460 / -3060 1232 / 1232 0 / 0 POC Glucose 09/27/18 09/26/18 09/26/18 07:48 22:31 16:25 POC Glucose 100 105 110 09/26/18 11:06 POC Glucose 193 H Medical Necessity - Tobacco Use Smoking Status: Never smoker Tobacco Use: Non-smoker Assessment/Plan All Active Problems (Last Reviewed 09/23/18 @ 10:30 by Fahad Parker MD) Lower extremity weakness (Acute) Generalized weakness (Acute) Debility (Acute) Syncope (Acute) Orthostatic hypotension (Acute) 1. ESRD HD today and TTS. Seen on dialysis. 2. Anemia VIVIAN on dialysis 3. Obstructive uropathy 4. DM2 5. Orthostatic hypotension on midodrine 5mg daily. increase to 10mg daily if remains orthostatic 6. Debilitation/fall rehab eval
--- NOTE | 2018-09-27 11:34 | PCM.DC ---
- Discharge Diagnoses Current Active Problems: Current Active and Chronic Problems (Last Reviewed 09/23/18 @ 10:30 by Fahad Parker MD) Generalized weakness (Acute) Debility (Acute) You will use the following diet at home:: Renal (restricted protein/sodium) Your food should be the consistency of: Regular Your liquids should be the consistency of: Regular/Thin Discharge Activity: May Not Drive Allergies/Adverse Reactions: Allergies ciprofloxacin [From Cipro] Adverse Reaction (Verified 09/24/18 16:43) Vomiting contrast dye Allergy (Severe, Uncoded 08/28/18 22:40) Anaphylaxis Medications to take at Discharge Ergocalciferol [Vitamin D] 50,000 unit PO WE 04/18/17 Venlafaxine XR [Effexor Xr] 150 mg PO DAILY 02/28/18 Aspirin E.C. [Ecotrin] 81 mg PO DAILY@0800 07/15/18 Nortriptyline HCl [Pamelor] 50 mg PO QHS 07/15/18 Pregabalin [Lyrica] 50 mg PO BID 07/15/18 Bupropion HCl [Bupropion Xl] 300 mg PO DAILY 09/22/18 Acetaminophen [Tylenol Tablet] 650 mg PO Q6H PRN PRN tab 09/27/18 Midodrine HCl [Proamatine] 5 mg PO DAILY #30 tab 09/27/18 The following prescriptions were given: Midodrine HCl [Proamatine] 5 mg PO DAILY #30 tab Transmission Status: Pending to [facility] Primary Care Physician: Melvi Eastman MD [Primary Care Provider] - Please follow up with your Primary Care Physician in: 1-2 weeks Test Results: Test results from this visit will be discussed in further detail at your follow-up appointment, if applicable. Please Follow Up With: Betty Odonnell DO When: as directed Proposed Discharge Date: 09/27/18
[2018-09-27 12:06] LABS: Bedside Glucose 158 mg/dL (70-110)
[2018-09-27] MEDS: Heparin 10,000 UNITS/10 ML Vial IV (13:04)
[2018-09-27 13:05] VITALS: BP 77/55; BP 86/68; PULSE 84; PULSE 95
--- NOTE | 2018-09-27 13:28 | NURSING ---
As soon as Dialysis was done, this nurse attempted to take orthostatic vital signs. See intervention for results. Ryann was able to tolerate laying down and sitting up but only able to stand up for 2 min before she could not longer tolerate standing. pt stated she got the popping in her ears and then got a headache. this nurse tried to get bp while standing after 2 min but monitor would not read a BP. All the above mentioned was texted to Duncan ASHLEY
--- NOTE | 2018-09-27 14:24 | NURSING ---
Dr. Vickers is aware of Orthostatic Vitals.
[2018-09-27 15:00] VITALS: BP 150/90; PULSE 83; RESP 18; TEMP 37.1; O2SAT 97
[2018-09-27] MEDS: buPROPion (XL) 300 MG TABLET.XL PO (15:21)
[2018-09-27] MEDS: Midodrine HCl 5 MG Tablet PO (15:22)
[2018-09-27] MEDS: Venlafaxine XR 150 MG Capsule PO (15:22)
[2018-09-27] MEDS: Aspirin E.C. 81 MG Tablet PO (15:22)
[2018-09-27] MEDS: HYDROcodone Bitartrate/Apap 5/325 Tablet PO (15:27)
[2018-09-27] MEDS: 0.9% NaCl Peripheral Flush Adult/Peds IV (15:34)
--- NOTE | 2018-09-27 16:15 | DS.PCM_ITS ---
Discharge Date and Diagnosis - Problem List Patient Problems: Active and Suspected Problems (Last Reviewed 09/23/18 @ 10:30 by Fahad Parker MD) Generalized weakness (Acute) Debility (Acute) Date of Admission: 09/22/18 Date of Discharge: 09/27/18 - Primary Discharge Diagnosis Active and Suspected Problems (Last Reviewed 09/23/18 @ 10:30 by Fahad Parker MD) Debility, falls, collapse Orthostatic hypotension Severe peripheral neuropathy End-stage renal disease Type 2 diabetes mellitus Morbid obesity History of CAD Fistula steal syndrome with dry gangrene of the left distal fifth digit Depression - Secondary Discharge Diagnosis Chronic Problems (Last Reviewed 09/23/18 @ 10:30 by Fahad Parker MD) ESRD (end stage renal disease) (Chronic) Chronic renal failure, stage 4 (severe) (Chronic) Morbid obesity (Chronic) HTN (hypertension) (Chronic) Bilateral hydronephrosis (Chronic) Iron deficiency anemia (Chronic) Type II diabetes mellitus (Chronic) Coronary artery disease (Chronic) Chronic low back pain (Chronic) Hydroureter (Chronic) Bladder outlet obstruction (Chronic) Hospital Course and Treatment Imaging Results: CT/Brain/Head without Contrast IMPRESSION: No acute intracranial abnormality. RAD/Lumbar Spine 2 or 3 Views IMPRESSION: No fracture or dislocation in the lumbar spine. MRI/Brain without Contrast IMPRESSION: No evidence of acute intracranial bleed, mass or ischemia. Consultations: Blas-nephrology Operations: None Procedures: Dialysis Summary of Care Provided: Hospital course: The patient is a 43 year old F with past medical history of above significant for recently being admitted to the hospital for generalized debility and falling after which time she refused to go to shelter however she was discharged home without hours had fallen and came back to the ER. She had had MRIs of her brain, thoracic spine and lumbar spine, had ABIs recently, lumbar spine x-ray, and CT of the brain. No acute process could be found. Patient was admitted, nephrology was consulted for dialysis, and physical therapy and Occupational Therapy were ordered. Patient continued to have ongoing debility with difficulty ambulating. She did have orthostatic hypotension with significant drops in her blood pressure with position change, her midodrine was increased. After dialysis she does continue to have orthostatic hypotension however will defer raising midodrine further due to resting hypertension. Orthostatic hypotension is felt at this time to be the most primary contributing factor in her debility and falls recently, however this is a multifactorial process including her morbid obesity, severe bilateral peripheral neuropathy with no feeling from mid ankle down through her toes, poor muscle strength and coordination. Patient failed going home already, however she is still reluctant to consider placement in shelter. The patient unfortunately lives completely alone, her mom occasionally helps her out and helps her with meals sometimes. The patient was agreeable to home with home care, she is currently homebound, and will need ongoing physical therapy and Occupational Therapy. She was discharged home on higher dose of midodrine, advised to follow-up with her PCP in 1 to 2 weeks, follow-up with nephrology as directed, and I also advised her to follow-up with podiatry in 3 to 4 weeks. Prior to discharge we had multiple conversations about her high risk of going home and following and not being able to care for herself, and sustaining larger injuries he will be more difficult to treat, however she still is insistent that she will not go to fci. Of note, I recommended the podiatry referral as she has never seen a children's service worker, has severe drying, scaling of her legs and feet, and has large calluses forming and she is at high risk of developing wounds and infections given her diabetes and severe neuropathy. This patient was seen by Duncan Conner PA-C under the supervision of Doctor Patel chen. [] Patient Problems: Active and Suspected Problems (Last Reviewed 09/23/18 @ 10:30 by Fahad Parker MD) Generalized weakness (Acute) Debility (Acute) - Physical Exam General: Alert, Oriented x3, Cooperative HEENT: Atraumatic, PERRLA, EOMI, Normocephalic Neck: Supple, No JVD, Negative Carotid Bruits Lungs: Clear to auscultation, Normal air movement Cardiovascular: Regular rate, No murmurs Abdomen: Bowel Sounds Present, Soft, Non Tender, Obese Extremities: No edema, Capillary Refill Less than 3 Seconds Skin: No rashes, No breakdown Musculoskeletal: No Tenderness to Palpation of Joints or Extremities Neurological: Cranial nerves II-XII grossly intact Psych/Mental Status: Normal Affect, Appropriate Vital Signs Temp Pulse Resp BP Pulse Ox 98.7 F 83 18 150/90 H 97 09/27/18 15:00 09/27/18 15:00 09/27/18 15:00 09/27/18 15:00 09/27/18 15:00 Oxygen Delivery Method Room Air Weight: 261 lb 14.546 oz Body Mass Index (BMI) 46.3 Finger Stick Blood Glucose 98 Orthostatic Vital Signs Start: 09/24/18 22:11 Freq: BID Status: Active Protocol: Activity Type Activity Date Activity User E-Sign Co-Sign Detail Recorded Client Recorded Date Recorded By Document 09/27/18 13:05 TC [id number] 09/27/18 13:17 TC 09/27/18 13:05 Orthostatic Vitals Lying -Blood Pressure (90/60-120/80) 77/55 L -Extremity Use Left Arm -Pulse Rate (60-100) 84 Standing -Blood Pressure (90/60-120/80) 86/68 L -Pulse Rate (60-100) 95 Intake and Output for Last 24 Hours 09/25/18 09/26/18 09/27/18 23:59 23:59 23:59 Intake Total 940 / 1340 1532 / 1532 600 / 600 Output Total 4400 / 4400 300 / 300 400 / 400 Balance -3460 / -3060 1232 / 1232 200 / 200 POC Glucose 09/27/18 09/27/18 09/26/18 11:52 07:48 22:31 POC Glucose 158 H 100 105 09/26/18 16:25 POC Glucose 110 Discharge Diet: 1800 Calorie Control Diet, Renal Diet Discharge Activity: May Not Drive Home Medications: Medications to take at Discharge Ergocalciferol [Vitamin D] 50,000 unit PO WE 04/18/17 Venlafaxine XR [Effexor Xr] 150 mg PO DAILY 02/28/18 Aspirin E.C. [Ecotrin] 81 mg PO DAILY@0800 07/15/18 Nortriptyline HCl [Pamelor] 50 mg PO QHS 07/15/18 Pregabalin [Lyrica] 50 mg PO BID 07/15/18 Bupropion HCl [Bupropion Xl] 300 mg PO DAILY 09/22/18 Acetaminophen [Tylenol Tablet] 650 mg PO Q6H PRN PRN tab 09/27/18 Midodrine HCl [Proamatine] 5 mg PO DAILY #30 tab 09/27/18 Following Prescrptions Were Given to Patient: Midodrine HCl [Proamatine] 5 mg PO DAILY #30 tab Transmission Status: Received by [facility] Primary Care Physician: Melvi Eastman MD [Primary Care Provider] - Please follow up with your Primary Care Physician in: 1-2 weeks Please Follow Up With: Betty Odonnell DO When: as directed Please Follow Up With: Jory Greco DPM When: 3-4 weeks Disposition: Home with Home Health Minutes spent on discharge:: 35 Patient Condition:: Stable Medical Necessity - Tobacco Use Smoking Status: Never smoker Tobacco Use: Non-smoker Meaningful Use Info Meaningful Use Diagnoses (Choose all that apply): None applicable
--- NOTE | 2018-09-27 17:54 | CASEMGMT ---
Case Managment Note: Late Entry for today Informed patient did not want to go to a SNF. 1312- Called [facility] [phone] and [facility] serves [place] and [place] 1314- Called [facility] [phone], left a VM to return call to this proposal manager writer 1316- Called [facility] [phone], S/w [facility] and [facility] taked Insurance and serves [place] area, states cannot start until /Sat 1321- Called [facility] [phone], Return call at 1341 by [facility] contract processor Coordinator and [facility] takes Insurance, Serves [place] but cannot start until Tu/Sat S/w patient and updated on Calls to [facility] in Network with Radha SWIFT with VM. Lives alone and has no social support to assist, states her parents are around/help a little and states thay they are both retires. Baseline normally is Independent with ADL's and ambulates >200ft and works/drives. Patient refusing SNF with this proposal manager writer and aware PT to re-evaluate. Dr Vickers made aware of above, Charge nurse Sarah s/w PT to evaluate patient for Need. Yeni Wagoner, RNCM
== END 2018-09-27 17:06 | disposition home health service (06) ==
LOC: ED 17:09 → MS3 18:09
PROVIDERS: Admitting Provider Internal Medicine; Emergency Provider Emergency Medicine; Family Provider Internal Medicine; PCP Internal Medicine; Referring Provider Internal Medicine; Visit Provider Internal Medicine
DX: R53.1 Weakness (principal); I95.1 Orthostatic hypotension; E11.22 Type 2 diabetes mellitus with diabetic chronic kidney disease; I12.0 Hypertensive chronic kidney disease with stage 5 chronic kidney disease or end stage renal disease; N18.6 End stage renal disease; E11.42 Type 2 diabetes mellitus with diabetic polyneuropathy; E66.01 Morbid (severe) obesity due to excess calories; Z68.42 Body mass index [BMI] 45.0-49.9, adult; Z71.3 Dietary counseling and surveillance; D50.9 Iron deficiency anemia, unspecified; I25.10 Atherosclerotic heart disease of native coronary artery without angina pectoris; G89.29 Other chronic pain; Z95.5 Presence of coronary angioplasty implant and graft; Z99.2 Dependence on renal dialysis; Z79.899 Other long term (current) drug therapy; Z79.82 Long term (current) use of aspirin; F41.9 Anxiety disorder, unspecified; F32.9 Major depressive disorder, single episode, unspecified; T82.898A Other specified complication of vascular prosthetic devices, implants and grafts, initial encounter; Y83.8 Other surgical procedures as the cause of abnormal reaction of the patient, or of later complication, without mention of misadventure at the time of the procedure; E11.52 Type 2 diabetes mellitus with diabetic peripheral angiopathy with gangrene; I96 Gangrene, not elsewhere classified; Z91.81 History of falling; D63.1 Anemia in chronic kidney disease
CPT/HCPCS: 70450; 70551; 72100; 80048; 82962; 84484; 85025; 93005; A4216

== ENCOUNTER 2018-11-01 06:31 | Observation (INO) | payer MEDICARE, SELFPAY ==
[2018-11-01 06:32] VITALS: BP 124/69; PULSE 85; RESP 16; TEMP 36.6; O2SAT 100; BMI 47.0
--- NOTE | 2018-11-01 07:06 | RAD_ITS ---
STUDY: X-RAY CHEST REASON FOR EXAM: Female, 43 years old. Leg weakness. TECHNIQUE: Frontal and lateral views of the chest. COMPARISON: September 22, 2018 FINDINGS: Central catheter on the left extends to the superior vena cava. There are perihilar linear increased densities of the lungs. There is no demonstrated pleural abnormality. Normal size heart. Normal mediastinum and anita. Normal visualized pulmonary arteries. Normal visualized aortic arch and descending thoracic aorta. Normal visualized thoracic spine. Normal visualized ribs, clavicles, and shoulders. There is no demonstrated abnormality of the visualized soft tissue structures of the upper abdomen. RAD/Chest PA and Lateral IMPRESSION: Perihilar edema or atelectasis. Electronically Signed: Dominguez Mario MD at 8:37 EDT , Service support ,
--- NOTE | 2018-11-01 07:07 | ED.DCSUM_ITS ---
History of Present Illness Informant: Patient Onset: Today Context: Sudden Onset Narrative: Patient states she was about to leave to go to dialysis this morning, she had her keys and she twisted to lunch for the door, states that her legs suddenly collapsed. She fell as a result but did not hurt herself. She had no numbness in her legs or saddle anesthesia, bowel or bladder dysfunction, new pain in her back, or injury. She denies a headache, blurry vision, or other peripheral neurologic symptoms. She states this is happened several times before and no one has ever been able to find a cause. She has had MRIs of the spine and the brain, and they have basically showed nothing. She was unable to stand or walk on her own today so she was brought to the ER instead of dialysis. She recently was at [facility] and had a peritoneal dialysis catheter placed. It is not been used yet and she is still undergoing hemodialysis with a port in her left chest. During that visit she had a minor procedure on her right upper extremity to assess patency of her AV fistula, which is not patent, she has been having postoperative pain in that arm since then that is unchanged after this fall. <Dominguez Wren - Last Filed: 11/01/18 07:13> <Jaye Byrne - Last Filed: 11/01/18 15:53> Chief Complaint: Fall - Past Medical History (1) Debility Status: Chronic (2) Orthostatic hypotension Status: Chronic (3) Bilateral hydronephrosis Status: Chronic (4) Bladder outlet obstruction Status: Chronic (5) Chronic low back pain Status: Chronic (6) Coronary artery disease Status: Chronic (7) ESRD (end stage renal disease) Status: Chronic (8) HTN (hypertension) Status: Chronic (9) Iron deficiency anemia Status: Chronic (10) Morbid obesity Status: Chronic (11) Type II diabetes mellitus Status: Chronic <Dominguez Wren - Last Filed: 11/01/18 07:13> Past Medical History Surgical History: - - PCI, bilateral ureteral stent placements and removal, AVF creation, tunnel intervention, port placement. Lives: Alone Smoking Status: Never smoker - Family History Maternal Family History: Reports: Unknown - Patient was adopted and she does not know her family of origin to be able to provide any family medical history. Paternal Family History: Reports: Unknown - Patient was adopted and she does not know her family of origin to be able to provide any family medical history. <Dominguez Wren - Last Filed: 11/01/18 07:13> <Jaye Byrne - Last Filed: 11/01/18 15:53> - Allergies and Home Meds Allergies/Adverse Reactions: Allergies ciprofloxacin [From Cipro] Adverse Reaction (Verified 11/01/18 06:31) Vomiting contrast dye Allergy (Severe, Uncoded 11/01/18 06:31) Anaphylaxis Primary Care Physician: Melvi Eastman MD [Primary Care Provider] - Review of Systems General: Denies: Chills, Fever, Sweats Eyes: Denies: Visual changes - bilaterally, Diplopia ENT: Denies: Rhinorrhea, Sore throat Cardiovascular: Denies: Chest pain, Palpitations Respiratory: Denies: Dyspnea, Cough, Dyspnea on exertion Gastrointestinal: Denies: Abdominal pain, Nausea, Vomiting, Diarrhea, Melena, Hematochezia Genitourinary: Denies: Dysuria, Hematuria, Frequency Musculoskeletal: Reports: Extremity Pain. Denies: Neck pain, Back pain, Swelling Skin: Denies: Rash, Wounds Neurological: Reports: Weakness - legs. Denies: Headache, Numbness <Dominguez Wren - Last Filed: 11/01/18 07:13> Physical Exam Vital Signs/Narrative: Vital Signs Temp Pulse Resp BP Pulse Ox 11/01/18 06:32 97.9 F 85 16 124/69 H 100 Inital Vital Signs reviewed: Yes General: Well nourished, Well developed, Obese, No Acute Distress Head: Normocephalic, Atraumatic Eyes: Perrl, EOMI ENT: Moist mucous membranes, No rhinorrhea Neck: Supple, Nontender Cardiovascular: Regular rate, Regular rhythm, No murmurs, - - left chest catheter site benign Respiratory: No distress, CTA bilaterally, Chest nontender Abdomen: Soft, Nontender, Nondistended, Normal bowel sounds Back: Nontender, Normal Inspection Extremities: Nontender, No edema, - - nontender dry gangrenous left small finger Skin: Normal color, No rash, No Trauma, - - sutured surgical incision medial right upper arm benign, without dehiscence or discharge Neurological: Alert, Oriented x3, Cranial nerves II-XII grossly intact, Normal Sensation, Normal DTR, Weakness - all muscle groups BLE 4+, symmetric Psychological: Normal affect, Normal Mood <Dominguez Wren - Last Filed: 11/01/18 07:13> Diagnostic/Tx/Re-eval - Medical Decision Making Patient is neurologically intact throughout all 4 extremities and well- appearing. Given the work-up she has had in the past, I do not think we need to repeat it. I had nursing get her out of bed, but she was unable to safely bear her own weight or take a step; her foot practically bent underneath of her with forced plantarflexion, and she was about to fall. She usually uses a walker at home, however we are concerned that even with that that she would not be able to stand or walk safely. I do not think she needs a repeat CT of the head. Metabolic work-up is ordered in addition to tests to rule out infection and she will be reevaluated. Seen just prior to shift change, so this is checked out to oncoming emergency physician. <Dominguez Wren - Last Filed: 11/01/18 07:13> Impressions Chest X-Ray 11/01/18 07:06 IMPRESSION: Perihilar edema or atelectasis. Electronically Signed: Dominguez Mario MD at 8:37 EDT , Service support , 11/01/18 07:06 Chest PA and Lateral [RAD] Stat Laboratory Results 11/01/18 11/01/18 07:30 07:30 WBC 8.4 RBC 2.63 L Hgb 7.6 L Hct 22.2 L MCV 84.4 MCH 28.9 MCHC 34.2 RDW Std Deviation 45.2 H RDW Coeff of Lu 14.8 H Plt Count 145 L MPV 10.0 Immature Gran % (Auto) 0.500 Neut % (Auto) 83.2 H Lymph % (Auto) 7.1 L Geary % (Auto) 9.1 Eos % (Auto) 0.0 Baso % (Auto) 0.1 Absolute Neuts (auto) 7.0 Absolute Lymphs (auto) 0.59 L Nucleated RBC % 0 Platelet Estimate ADEQUATE Hypochromasia 2+ Target Cells 1+ Sodium 133 L Potassium 5.0 Chloride 97 L Carbon Dioxide 24.0 Anion Gap 12 BUN 34 H Creatinine 5.69 H Estim Creat Clear Calc 10.08 Est GFR (MDRD) Af Amer 10 L Est GFR (MDRD) Non-Af 9 L BUN/Creatinine Ratio 6.0 L Glucose 103 Calcium 8.6 Troponin I < 0.015 - Medical Decision Making Patient's laboratory evaluation does not reveal any acute issues that would lead to reported episodes of her legs collapsing. Patient got up with a walker and 2 nurses at bedside after labs were completed. They stated that she took approximately 4 steps without difficulty and then will try to walk on the outside of her foot did not have much leg support. When they told her they would get her back in bed she walked backwards to the bed without much difficulty. Patient was seen by social work. Patient has reportedly recently been the [facility] as well as recently evaluated here. Family is concerned that there is another medical issue that has not been found causing her legs to collapse. We did advise her that she may very well require residential placement for physical therapy for definitive cause has not been found. Addendum: I spoke with hospitalist here. Because there is no neurology coverage on the weekend, hospitalist does not feel comfortable admitting the patient here. This was discussed with patient and her mother at bedside. They would prefer to go to [facility] were patient was recently hospitalized for abdominal vascular catheterization for dialysis. I spoke with the medicine quarterback and patient has been accepted in transfer, but does advise they do not know when they met have a bed. They do voice concern the patient may require dialysis before they can get her transferred. I spoke with her writer producer, Dr. Betty Odonnell and made her aware of the patient. Patient will be observed here in the emergency room. If by this evening we still do not have a bed available hospitalist will be contacted for admission. If patient is still here tomorrow morning hospitalist is to contact Dr. Odonnell at that time and she will arrange for the patient to be dialyzed. <Jaye Byrne - Last Filed: 11/01/18 15:53> ED Disposition <Dominguez Wren - Last Filed: 11/01/18 07:13> <Jaye Byrne - Last Filed: 11/01/18 15:53> - Plan for ED Patient: Disposition: [facility] - Main Diagnosis: Leg weakness Referrals: Melvi Eastman MD [Primary Care Provider] -
[2018-11-01 07:44] LABS: Absolute Lymphocyte Count 0.59 X10^3/uL (0.83-4.51); Basophil# 0.01 X10^3/uL; Basophil% 0.1 % (0-1); Hematocrit 22.2 % (37-47); Hemoglobin 7.6 g/dL (12.0-15.0); Lymphocyte # 0.59 X10^3/ul (4.0); Lymphocyte % 7.1 % (19-41); Mean Corp Hgb Conc 34.2 g/dL (32-36); Mean Corpuscular Hgb 28.9 pg (27.0-32.0); Mean Corpuscular Volume 84.4 fL (81-99); Monocyte# 0.76 X10^3/uL; Monocyte% 9.1 % (0-10); NRBC Flagged by Analyzer 0 % (0-5); Neutrophil # 6.95 X10^3/uL (2.7-7.7); Neutrophil % 83.2 % (47-70); POSITIVE DIFFERENTIAL YES; Platelet Count 145 K/mm3 (150-450); RBC Distribution Width CV 14.8 % (11.6-14.6); RBC Distribution Width SD 45.2 fl (35.1-43.9); Red Blood Count 2.63 M/mm3 (4.2-5.4); White Blood Count 8.4 K/mm3 (4.4-11.0)
[2018-11-01 07:46] LABS: Differential Indicated SCAN CRITERIA MET
[2018-11-01 08:02] LABS: Anion Gap 12 (5-15); BUN 34 mg/dL (7-18); Calcium,Total 8.6 mg/dL (8.5-10.1); Chloride 97 mmol/L (98-107); Creatinine, Serum 5.69 mg/dL (0.55-1.02); EST Glomerular Filtration Rate 9 mL/min (>60); Est Glom Filt Rate - Afr Amer 10 mL/min (>60); Estimated Creatinine Clearance 10.08 ml/min; Glucose 103 mg/dL (74-106); Sodium Level 133 mmol/L (136-145)
[2018-11-01 08:09] LABS: Hypochromasia 2+; Platelet Estimate ADEQUATE (ADEQ); Target Cells 1+
--- NOTE | 2018-11-01 10:55 | CM.ED ---
SOCIAL WORK INFORMANT: DR. GUZMAN, NURSING REASON FOR REFERRAL: D/C PLANNING- LONG-TERM PLACEMENT MET WITH PATIENT AND PATIENT'S MOTHER IN ROOM. PATIENT KNOWN TO THIS WORKER FROM PREVIOUS VISITS. PATIENT LIVES HOME ALONE IN A 1 STORY APARTMENT WITH 1 SMALL STEP TO ENTER. PATIENT REPORTS USES A ROLLATOR NEEDED FOR ASSISTANCE WITH AMBULATION. PATIENT RECEIVES DIALYSIS AT [facility] T/TH/SAT AT 6:10A. PATIENT STATES [facility] TRANSPORTS PATIENT TO AND FROM DIALYSIS. PATIENT ADMITS TO HX OF DEPRESSION AND STATES FOLLOWS WITH THE COUNSELING CENTER. PATIENT DENIES ANY HX OF SUBSTANCE ABUSE. DISCUSSED SAFE D/C PLANNING. PATIENT REPORTS WAS JUST D/C'ED FROM THE [facility] AFTER BEING ADMITTED THERE FOR A WEEK AND A HALF. MOTHER STATES THERE IS A MEDICAL PROBLEM. SOMETHING IS WRONG. SHE DOES NOT FALL, SHE COLLAPSES. NO ONE IS FIGURING OUT THE PROBLEM, A LONG-TERM WILL NOT HELP. ACTIVE LISTENING AND EMOTIONAL SUPPORT PROVIDED. INFORMED PATIENT AND MOTHER THIS WORKER WILL DISCUSS CONCERNS WITH DR. GUZMAN. MOTHER REQUESTING TO SPEAK WITH DR. GUZMAN. DR. GUZMAN AND NURSING UPDATED ON THE ABOVE. PLAN: TBD RANDY CARTER, FOREST PATHOLOGY TEACHER, CONSULTING SALES MANAGER.
--- NOTE | 2018-11-01 11:12 | NURSING ---
DR CHAVEZ FOR DR GUZMAN
--- NOTE | 2018-11-01 13:15 | CM.ED ---
SOCIAL WORK DR. GUZMAN UPDATED THIS WORKER ON PLAN FOR TRANSFER.
--- NOTE | 2018-11-01 13:37 | ED.RN ---
pt accepted at [facility] but not sure when bed will be availiable. assessing need for dialysis
--- NOTE | 2018-11-01 13:49 | ED.RN ---
pt noc engineer is dr rachid clark
--- NOTE | 2018-11-01 15:28 | ED.RN ---
pt to be transferred to [facility]. talked with dr clark. pt to have dialysis tomorrow if no transfer prior to that time
[2018-11-01 17:43] VITALS: BP 113/51; PULSE 82; RESP 16; O2SAT 97
--- NOTE | 2018-11-01 18:49 | ED.RN ---
still waiting on room assignment from [facility]
[2018-11-01 19:00] VITALS: BP 119/67; PULSE 87; RESP 16; O2SAT 100
--- NOTE | 2018-11-01 19:18 | ED.RN ---
URINE RESULT DOES NOT BELONG TO THIS PT. SPECIMEN MISLABELED. PHYSICIAN AWARE.
[2018-11-01 21:00] VITALS: BP 115/62; PULSE 82; RESP 16; O2SAT 97
--- NOTE | 2018-11-01 22:36 | NURSING ---
[facility] CALLED ABOUT THIS PATIENT @1999. [facility] STATED THEY WERE GOING TO TRY TO GET HER A BED TONIGHT. THERE ARE 8 PATIENTS AHEAD OF HER AND SUGGESTED ADMITTING TO [facility]. DR. SANTANA NOTIFIED.
[2018-11-01 23:00] VITALS: BP 119/80; PULSE 83; RESP 16; O2SAT 97
--- NOTE | 2018-11-02 01:52 | PCM.HP.STD ---
Problem List (1) ESRD (end stage renal disease) Status: Chronic (2) Lower extremity weakness Status: Acute Qualifiers: Laterality: bilateral Qualified Code(s): R29.898 - Other symptoms and signs involving the musculoskeletal system (3) Generalized weakness Status: Acute (4) Debility Status: Chronic (5) Syncope Status: Acute Qualifiers: Syncope type: unspecified Qualified Code(s): R55 - Syncope and collapse (6) Orthostatic hypotension Status: Chronic (7) Chronic renal failure, stage 4 (severe) Status: Chronic (8) Morbid obesity Status: Chronic (9) HTN (hypertension) Status: Chronic Qualifiers: Hypertension type: essential hypertension Qualified Code(s): I10 - Essential (primary) hypertension (10) Bilateral hydronephrosis Status: Chronic (11) Iron deficiency anemia Status: Chronic Qualifiers: Iron deficiency anemia type: unspecified iron deficiency Qualified Code(s): D50.9 - Iron deficiency anemia, unspecified (12) Type II diabetes mellitus Status: Chronic Qualifiers: Diabetes mellitus mcfp insulin use: unspecified terminal manager insulin use status Diabetes mellitus complication status: with unspecified complications (13) Coronary artery disease Status: Chronic Qualifiers: Coronary Disease-Associated Artery/Lesion type: unspecified vessel or lesion type [place] vs. transplanted heart: unspecified whether [place] or transplanted heart Associated angina: angina presence unspecified Qualified Code(s): I25.10 - Atherosclerotic heart disease of [place] coronary artery without angina pectoris (14) Chronic low back pain Status: Chronic Qualifiers: Back pain laterality: unspecified Sciatica presence: unspecified whether sciatica present Qualified Code(s): M54.5 - Low back pain; G89.29 - Other chronic pain (15) Hydroureter Status: Chronic (16) Bladder outlet obstruction Status: Chronic History of Present Illness Date of Admission: 11/02/18 Chief Complaint: Bilateral leg weakness. Needs hemodialysis The patient is a 43 year old F with multiple comorbidities as listed came to the ER speech therapist early intervention on 11/01 2018 for bilateral lower extremity weakness. She states her both lower extremities are weak, right more than left progressively getting worse since July 2018. She was about to leave to go to dialysis on 11/01, her leg suddenly collapsed and she fell down. She denies any new symptoms of saddle anesthesia, bowel or bladder dysfunction. Her legs are weak even when she was admitted in [facility] and was discharged on 10/31 2018 for peritoneal dialysis catheter placement and probably to see patency of right upper extremity AV fistula but is not patent. She still gets hemodialysis through port in left chest AV fistula catheter. She has chronic numbness in bilateral feet, plantar aspect and right lower leg. She has chronic gangrene of left little finger for more than 11/2 months. [] Due to nonavailability of neurologist, patient is in the process of being transferred to [facility] and is accepted there. There is no available bed therefore hospitalist was requested to admit and dialysis in interim. Past Medical History Past Medical History (Chronic Problems): Chronic Problems (Last Reviewed 09/23/18 @ 10:30 by Fahad Parker MD) ESRD (end stage renal disease) (Chronic) Debility (Chronic) Orthostatic hypotension (Chronic) Chronic renal failure, stage 4 (severe) (Chronic) Morbid obesity (Chronic) HTN (hypertension) (Chronic) Bilateral hydronephrosis (Chronic) Iron deficiency anemia (Chronic) Type II diabetes mellitus (Chronic) Coronary artery disease (Chronic) Chronic low back pain (Chronic) Hydroureter (Chronic) Bladder outlet obstruction (Chronic) Medical History: Medical History (Last Reviewed 09/23/18 @ 10:30 by Fahad Parker MD) Chronic renal failure, stage 4 (severe) (Chronic) N18.4 Anemia D64.9 Anxiety and depression F41.8 Back problem M53.9 Carpal tunnel syndrome G56.00 Diabetes type 2, controlled E11.9 H/O nephrolithotomy with removal of calculi Z98.890, Z87.442 H/O transfusion of whole blood Z92.89 Headache R51 Heart disease I51.9 Hives L50.9 Kidney disease N28.9 Kidney failure N19 Kidney stone N20.0 Neuropathy G62.9 Recurrent infections B99.9 Seasonal allergies J30.2 UTI (urinary tract infection) N39.0 Vitamin deficiency E56.9 HTN (hypertension) I10 Allergies ciprofloxacin [From Cipro] Adverse Reaction (Verified 11/01/18 06:31) Vomiting contrast dye Allergy (Severe, Uncoded 11/01/18 06:31) Anaphylaxis Home Medications: Ambulatory Orders Medication Instructions Recorded Ergocalciferol [Vitamin D] 50,000 unit PO WE 04/18/17 Venlafaxine XR [Effexor Xr] 150 mg PO DAILY 02/28/18 Aspirin E.C. [Ecotrin] 81 mg PO DAILY@0800 07/15/18 Nortriptyline HCl [Pamelor] 50 mg PO QHS 07/15/18 Pregabalin [Lyrica] 50 mg PO BID 07/15/18 Bupropion HCl [Bupropion Xl] 300 mg PO DAILY 09/22/18 Calcium Acetate 3 cap PO TIDCM 11/01/18 Hydrocodone/Acetaminophen 1 tab PO PRN PRN 11/01/18 [Hydrocodone-Acetamin 5-325 mg] Surgical History: Surgical History (Last Reviewed 09/23/18 @ 10:30 by Fahad Parker MD) H/O heart artery stent Z95.5 History of carpal tunnel surgery Z92.89 Presence of surgically created arteriovenous shunt for hemodialysis Z99.2 Surgical History: - - PCI, bilateral ureteral stent placements and removal, AVF creation, tunnel intervention, port placement. Psychiatric History: Anxiety, Depression [employer] History: No pertinent [employer] history Lives: Alone Smoking Status: Never smoker - *Family History Maternal History Items: Unknown - Patient was adopted and she does not know her family of origin to be able to provide any family medical history. Paternal History Items: Unknown - Patient was adopted and she does not know her family of origin to be able to provide any family medical history. Review of Systems Constitutional: Denies: Chills, Fever, Weight Change HEENT: Denies: Head Aches, Sinus Congestion, Sinus Drainage Cardiovascular: Denies: Chest Pain, Palpitations Respiratory: Denies: Cough, Shortness of breath at rest, Sputum production Gastrointestinal: Denies: Abdominal Pain, Nausea, Vomiting Genitourinary: Reports: - - Patient is still passes small amount of urine, amount varies as per the patient. Denies burning micturition. Denies: Dysuria, Frequency Musculoskeletal: Reports: Joint Pain. Denies: Joint Tenderness Skin: Denies: Rash, Wounds Neurological: Reports: Balance problems, Focal weakness, Incoordination. Denies: Numbness, Tingling Psychiatric: Denies: Anxiety, Depression, Homicidal Ideations, Suicidal Ideations Hematologic/ Lymphatic: Denies: Easy Bruising, Easy Bleeding VTE Information - Inpt Only VTE Present on Admission: No VTE Mechan Device Prophylaxis: None VTE Pharm Prophylaxis ordered?: Yes Patient Problems: Active and Suspected Problems (Last Reviewed 09/23/18 @ 10:30 by Fahad Parker MD) Lower extremity weakness (Acute) - Physical Exam General: Alert, Oriented x3, Cooperative HEENT: Atraumatic, PERRLA, EOMI, Normocephalic Oral: Dry Mucosa Neck: Supple, No JVD, Negative Carotid Bruits Lungs: Clear to auscultation, Normal air movement, No rhonchi, No wheeze, No rales Cardiovascular: Regular rate, Regular Rhythm, Normal S1, Normal S2, No murmurs Abdomen: Bowel Sounds Present, Soft, Non Tender, Non-Distended Extremities: No edema, Capillary Refill Less than 3 Seconds, - - Dry gangrene of distal left little finger. Distal digit is black and dry and shriveled. Skin: No rashes, No breakdown Musculoskeletal: No Tenderness to Palpation of Joints or Extremities, Arthritic Changes Neurological: Cranial nerves II-XII grossly intact, Deep Tendon Reflexes 2+/4 and Symmetrical, Neuro grossly intact, - - Patient has decreased sensation in right leg foot, chronic in nature. Bilateral lower extremity weakness about 4/5, more than right lower extremity Psych/Mental Status: Normal Affect, Appropriate Vital Signs Temp Pulse Resp BP Pulse Ox 97.9 F 83 16 119/80 97 11/01/18 06:32 11/01/18 23:00 11/01/18 23:00 11/01/18 23:00 11/01/18 23:00 Oxygen Delivery Method Room Air Weight: 257 lb 0.944 oz Body Mass Index (BMI) 47.0 Finger Stick Blood Glucose 98 Laboratory Tests Past 24 Hrs 11/01/18 11/01/18 11/01/18 07:30 07:30 15:35 WBC 8.4 RBC 2.63 L Hgb 7.6 L Hct 22.2 L MCV 84.4 MCH 28.9 MCHC 34.2 RDW Std Deviation 45.2 H RDW Coeff of Lu 14.8 H Plt Count 145 L MPV 10.0 Immature Gran % (Auto) 0.500 Neut % (Auto) 83.2 H Lymph % (Auto) 7.1 L [place] % (Auto) 9.1 Eos % (Auto) 0.0 Baso % (Auto) 0.1 Absolute Neuts (auto) 7.0 Absolute Lymphs (auto) 0.59 L Nucleated RBC % 0 Platelet Estimate ADEQUATE Hypochromasia 2+ Target Cells 1+ Sodium 133 L Potassium 5.0 Chloride 97 L Carbon Dioxide 24.0 Anion Gap 12 BUN 34 H Creatinine 5.69 H Estim Creat Clear Calc 10.08 Est GFR (MDRD) Af Amer 10 L Est GFR (MDRD) Non-Af 9 L BUN/Creatinine Ratio 6.0 L Glucose 103 Calcium 8.6 Troponin I < 0.015 Urine Color Cancelled Urine Clarity Cancelled Urine pH Cancelled Ur Specific [place] Cancelled U Specif Grav (Refrac) Cancelled Urine Protein Cancelled Urine Glucose (UA) Cancelled Urine Ketones Cancelled Urine Occult Blood Cancelled Urine Nitrite Cancelled Urine Bilirubin Cancelled Urine Urobilinogen Cancelled Ur Leukocyte Esterase Cancelled Urine RBC Cancelled Urine WBC Cancelled Ur Squamous Epith Cells Cancelled Ur Transition Epith Cell Cancelled Ur Renal Epithelial Cell Cancelled Calcium Oxalate Crystal Cancelled Uric Acid Crystals Cancelled Triple Phos Crystals Cancelled Other Crystals Cancelled Amorphous Sediment Cancelled Urine Bacteria Cancelled Hyaline Casts Cancelled Fine Granular Casts Cancelled Coarse Granular Casts Cancelled Waxy Casts Cancelled RBC Casts Cancelled WBC Casts Cancelled Urine Mucus Cancelled Urine Trichomonas Cancelled Urine Yeast Cancelled Assessment/Plan All Active Problems (Last Reviewed 09/23/18 @ 10:30 by Fahad Parker MD) Lower extremity weakness (Acute) Generalized weakness (Acute) Syncope (Acute) The patient is a 43 year old F with multiple comorbidities as listed came to the ER speech therapist early intervention on 11/01 2018 for bilateral lower extremity weakness. She states her both lower extremities are weak, right more than left progressively getting worse since July 2018. She has chronic numbness in bilateral feet, plantar aspect and right lower leg. She has chronic gangrene of left little finger for more than 11/2 months. [] Due to nonavailability of neurologist, patient is in the process of being transferred to [facility] and is accepted there. There is no available bed therefore hospitalist was requested to admit and dialysis in interim. 1. ESRD most probably secondary to diabetic nephropathy on hemodialysis T/T/S: Patient is being admitted for hemodialysis today on 10/4018. Her instructor weaving is Dr. Odonnell who is been consulted. Labs reviewed. K5.0, sodium 133. BUN/creatinine 34/5.69. Bicarb 24. 2. Bilateral lower extremity weakness, exact etiology unclear but is chronic in nature since July 2018: Patient is being accepted by [facility]. Due to nonavailability of bed, patient is admitted and finally will be transferred there. It seems patient has diabetic neuropathy and she is on pregabalin, nortriptyline which are being continued 3. Diabetes mellitus type 2: Glucose is 103 in BMP. Accu-Chek before meals and at bedtime cover with Humalog sliding scale. 4. Chronic anemia most probably anemia of chronic disease: H&H 7.6/22.2. Patient denies any external bleeding. Most probably secondary to ESRD. Patient had iron work-up done in April 2018 reported as iron 41, TIBC low to 35, iron saturation 17.4% and ferritin 316; high. 1 dose of iron sucrose 200 mg ordered. Stool for occult blood ordered. Will need further management as per the instructor weaving as outpatient. Other comorbidities include hypertension, morbid obesity, coronary artery disease, chronic low back pain with bilateral ocular obstruction: Home medication reconciliation done. Multiple comorbidities complicates the present care and expect difficult and delay recovery. DVT prophylaxis: Bilateral SCDs. Pharmacological paralysis contraindicated in view of severe anemia. Laboratory Results 11/01/18 07:30: WBC 8.4, RBC 2.63 L, Hgb 7.6 L, Hct 22.2 L, MCV 84.4, MCH 28.9, MCHC 34.2, RDW Std Deviation 45.2 H, RDW Coeff of Lu 14.8 H, Plt Count 145 L, MPV 10.0, Immature Gran % (Auto) 0.500, Neut % (Auto) 83.2 H, Lymph % (Auto) 7.1 L, [place] % (Auto) 9.1, Eos % (Auto) 0.0, Baso % (Auto) 0.1, Absolute Neuts (auto) 7.0, Absolute Lymphs (auto) 0.59 L, Nucleated RBC % 0, Platelet Estimate ADEQUATE, Hypochromasia 2+, Target Cells 1+ 11/01/18 07:30: Sodium 133 L, Potassium 5.0, Chloride 97 L, Carbon Dioxide 24.0, Anion Gap 12, BUN 34 H, Creatinine 5.69 H, Estim Creat Clear Calc 10.08, Est GFR (MDRD) Af Amer 10 L, Est GFR (MDRD) Non-Af 9 L, BUN/Creatinine Ratio 6.0 L, Glucose 103, Calcium 8.6, Troponin I < 0.015 Clinical Impression(s) from Imaging Studies Chest X-Ray 11/01/18 07:06 IMPRESSION: Perihilar edema or atelectasis. Code Visit OBSV E&M: 62527 Initial observation care L3
[2018-11-02 03:16] VITALS: BMI 46.5
[2018-11-02 03:44] VITALS: BP 109/43; PULSE 82; RESP 16; TEMP 36; O2SAT 97
== END 2018-11-02 04:20 | disposition short-term general hospital (02) ==
LOC: ED 11-02 02:16 → MS3 11-02 05:31
PROVIDERS: Admitting Provider Internal Medicine; Emergency Provider Emergency Medicine; Family Provider Internal Medicine; PCP Internal Medicine; Referring Provider Internal Medicine; Visit Provider Internal Medicine
DX: R53.1 Weakness (principal); I12.0 Hypertensive chronic kidney disease with stage 5 chronic kidney disease or end stage renal disease; E11.22 Type 2 diabetes mellitus with diabetic chronic kidney disease; N18.6 End stage renal disease; Z99.2 Dependence on renal dialysis; D50.9 Iron deficiency anemia, unspecified; E66.01 Morbid (severe) obesity due to excess calories; Z68.42 Body mass index [BMI] 45.0-49.9, adult; Z71.3 Dietary counseling and surveillance; Z79.899 Other long term (current) drug therapy; Z79.82 Long term (current) use of aspirin; I25.10 Atherosclerotic heart disease of native coronary artery without angina pectoris; G89.29 Other chronic pain; E11.40 Type 2 diabetes mellitus with diabetic neuropathy, unspecified; F41.9 Anxiety disorder, unspecified; F32.9 Major depressive disorder, single episode, unspecified
CPT/HCPCS: 71046; 80048; 81001; 84484; 85025; 96365; 99218; 99285; J1756; A4216; G0378

== ENCOUNTER → 2018-12-17 08:31 | Outpatient (CLI) | payer MEDICARE, SELFPAY ==
[2018-12-17 08:53] LABS: Potassium 4.5 mmol/L (3.5-5.1)
== END ==
PROVIDERS: Family Provider Internal Medicine; PCP Internal Medicine; Referring Provider Internal Medicine Nephrology; Visit Provider Internal Medicine Nephrology
DX: E87.5 Hyperkalemia (principal)
CPT/HCPCS: 84132

== ENCOUNTER 2018-12-26 00:32 | Emergency (ER) | payer MEDICARE, MEDICAID, SELFPAY ==
[2018-12-26 00:33] VITALS: BP 140/79; PULSE 90; RESP 16; TEMP 36.7; O2SAT 98; BMI 45.7
--- NOTE | 2018-12-26 00:50 | ED.VIS.GEN ---
History of Present Illness Chief Complaint: Back Informant: Patient Narrative: Patient presents with lower back pain. Yesterday she started having upper lumbar back pain. She has had chronic back pain in the past. She tried [place] with minimal relief. No injury. She recently had a lumbar MRI in August of this year with this just showed some L5-S1 mild degenerative changes. She had x-ray at that time as well which was negative. Patient sees a neurologist and had an outpatient MRI last week. Sometimes she gets acute weakness in her lower extremities. She was told that that MRI did not show any acute abnormalities. No fevers or chills. Patient stated she has chronic peritoneal dialysis secondary to end-stage renal disease. No abdominal pain. She has had remote kidney stones but this does not feel like that. It is movement related. She has tightness in her back with range of motion - Past Medical History (1) Generalized weakness Status: Acute (2) Lower extremity weakness Status: Acute (3) Syncope Status: Acute (4) Bilateral hydronephrosis Status: Chronic (5) Bladder outlet obstruction Status: Chronic (6) Chronic low back pain Status: Chronic (7) Chronic renal failure, stage 4 (severe) Status: Chronic (8) Coronary artery disease Status: Chronic (9) Debility Status: Chronic (10) ESRD (end stage renal disease) Status: Chronic (11) HTN (hypertension) Status: Chronic (12) Hydroureter Status: Chronic (13) Iron deficiency anemia Status: Chronic (14) Morbid obesity Status: Chronic (15) Orthostatic hypotension Status: Chronic (16) Type II diabetes mellitus Status: Chronic Past Medical History - Allergies and Home Meds Allergies/Adverse Reactions: Allergies ciprofloxacin [From Cipro] Adverse Reaction (Verified 12/26/18 00:36) Vomiting contrast dye Allergy (Severe, Uncoded 12/26/18 00:36) Anaphylaxis Primary Care Physician: Melvi Eatsman MD [Primary Care Provider] - Prior records reviewed: Yes - See problem list Past Medical History: - - See problem list Surgical History: - - PCI, bilateral ureteral stent placements and removal, AVF creation, tunnel intervention, port placement. Lives: With Family Smoking Status: Never smoker Alcohol: None Drugs: None - Family History Maternal Family History: Reports: Unknown - Patient was adopted and she does not know her family of origin to be able to provide any family medical history. Paternal Family History: Reports: Unknown - Patient was adopted and she does not know her family of origin to be able to provide any family medical history. Review of Systems General: Denies: Chills, Fever, Sweats Eyes: Denies: Visual changes - bilaterally, Diplopia ENT: Denies: Rhinorrhea, Sore throat Cardiovascular: Denies: Chest pain, Palpitations Respiratory: Denies: Dyspnea, Cough, Dyspnea on exertion Gastrointestinal: Denies: Abdominal pain, Nausea, Vomiting, Diarrhea, Melena, Hematochezia Genitourinary: Denies: Dysuria, Hematuria, Frequency Musculoskeletal: Reports: Back pain. Denies: Extremity Pain Skin: Denies: Rash, Wounds Neurological: Denies: Headache, Weakness, Numbness Physical Exam Vital Signs/Narrative: Vital Signs Temp Pulse Resp BP Pulse Ox 12/26/18 00:33 98.0 F 90 16 140/79 H 98 General: Well nourished, Well developed, No Acute Distress Head: Normocephalic, Atraumatic Eyes: Perrl, EOMI ENT: Moist mucous membranes, No rhinorrhea Neck: Supple, Nontender Cardiovascular: Regular rate, Regular rhythm, No murmurs Respiratory: No distress, CTA bilaterally, Chest nontender Abdomen: Soft, Nontender, Nondistended, Normal bowel sounds Back: Normal Inspection, - - Tenderness across the upper lumbar spine without swelling or deformity. Mild decreased range of motion in all malik secondary to pain.. Negative for: Nontender Extremities: Nontender, No edema Skin: Normal color, No rash Neurological: Alert, Oriented x3, Cranial nerves II-XII grossly intact, Normal Strength, Normal Sensation Psychological: Normal affect, Normal Mood Diagnostic/Tx/Re-eval - Medical Decision Making This time I feel is musculoskeletal low back pain. I do not feel she needs repeat imaging. Just had MRI which showed no acute major abnormalities. I do not think she has a spinal epidural abscess cauda equina or emergent disc compression of her cord. Is given injection of morphine and Norflex will be given Flexeril for home. She has [place] at home. We will follow-up as an outpatient. I feel this is musculoskeletal with back pain ED Disposition - Plan for ED Patient: Disposition: Home or Assisted Living Diagnosis: Acute exacerbation of chronic low back pain Instructions: BACK PAIN (Acute or Chronic) Prescriptions: cycloBENZAPRine HCl [Flexeril] 10 mg PO TID PRN #20 tab PRN Reason: Muscle Spasm Prescription Printed Referrals: Melvi Eastman MD [Primary Care Provider] -
[2018-12-26] MEDS: Orphenadrine 60 MG/2 ML Ampul IM (00:54)
[2018-12-26] MEDS: Morphine 4 MG/ML Syringe IM (00:54)
[2018-12-26 01:35] VITALS: BP 141/58; PULSE 99; RESP 17; O2SAT 100
== END 2018-12-26 01:35 | disposition home or self-care (01) ==
LOC: ED 01:01
PROVIDERS: Emergency Provider Emergency Medicine; Family Provider Internal Medicine; PCP Internal Medicine
DX: M54.5 Low back pain (principal); G89.29 Other chronic pain; E11.22 Type 2 diabetes mellitus with diabetic chronic kidney disease; I12.0 Hypertensive chronic kidney disease with stage 5 chronic kidney disease or end stage renal disease; N18.6 End stage renal disease; Z99.2 Dependence on renal dialysis; I25.10 Atherosclerotic heart disease of native coronary artery without angina pectoris; E66.01 Morbid (severe) obesity due to excess calories; I95.1 Orthostatic hypotension; Z86.2 Personal history of diseases of the blood and blood-forming organs and certain disorders involving the immune mechanism; Z87.448 Personal history of other diseases of urinary system; Z87.442 Personal history of urinary calculi; Z79.82 Long term (current) use of aspirin; Z79.899 Other long term (current) drug therapy
CPT/HCPCS: 82374; 96372; 99282

== ENCOUNTER → 2019-02-02 17:57 | Outpatient (CLI) | payer MEDICARE, MEDICAID, SELFPAY ==
[2019-02-02 19:02] LABS: Absolute Neutrophil Count 6.7 X10^3/uL (2.0-7.7); Basophil# 0.02 X10^3/uL; Basophil% 0.2 % (0-1); Eosinophil# 0.82 X10^3/uL; Eosinophils% 8.6 % (0-5); Hematocrit 32.6 % (37-47); Hemoglobin 10.7 g/dL (12.0-15.0); Lymphocyte % 10.5 % (19-41); Mean Corp Hgb Conc 32.8 g/dL (32-36); Mean Corpuscular Hgb 25.5 pg (27.0-32.0); Mean Corpuscular Volume 77.6 fL (81-99); Mean Platelet Vol. 8.9 fl (6.2-12.0); Monocyte% 9.4 % (0-10); NRBC Flagged by Analyzer 0 % (0-5); Neutrophil # 6.73 X10^3/uL (2.7-7.7); Neutrophil % 70.7 % (47-70); Platelet Count 238 K/mm3 (150-450); RBC Distribution Width CV 16.8 % (11.6-14.6); RBC Distribution Width SD 47.7 fl (35.1-43.9); White Blood Count 9.5 K/mm3 (4.4-11.0)
[2019-02-02 19:26] LABS: ALB/GLOB Ratio 0.5 RATIO (0.9-2.4); AST(SGOT) 18 U/L (15-37); Alanine Aminotransfer ALT/SGPT 14 U/L (13-56); Albumin, Serum 2.4 g/dL (3.2-5.0); Alkaline Phosphatase 103 U/L (45-117); Anion Gap 11 (5-15); BUN 52 mg/dL (7-18); BUN/Creat Ratio 8.5 RATIO (10-20); Calcium,Total 8.8 mg/dL (8.5-10.1); Chloride 100 mmol/L (98-107); Creatinine, Serum 6.11 mg/dL (0.55-1.02); EST Glomerular Filtration Rate 8 mL/min (>60); Est Glom Filt Rate - Afr Amer 10 mL/min (>60); Globulin 4.6 g/dL (2.2-4.2); Glucose 128 mg/dL (74-106); Potassium 4.3 mmol/L (3.5-5.1); Sodium Level 136 mmol/L (136-145)
== END ==
PROVIDERS: Family Provider Internal Medicine; PCP Internal Medicine; Referring Provider Family Medicine; Visit Provider Family Medicine
DX: L53.9 Erythematous condition, unspecified (principal); R63.5 Abnormal weight gain
CPT/HCPCS: 36415; 80053; 85025

== ENCOUNTER 2019-02-12 16:08 | Inpatient (IN) | payer MEDICARE, MEDICAID, SELFPAY ==
[2019-02-12 16:13] VITALS: BP 117/76; PULSE 96; RESP 16; TEMP 36.7; O2SAT 98; BMI 45.9
--- NOTE | 2019-02-12 16:36 | EKG12_ITS ---
Test Reason : Blood Pressure : / mmHG Vent. Rate : 092 BPM Atrial Rate : 092 BPM P-R Int : 138 ms QRS Dur : 084 ms QT Int : 384 ms P-R-T Axes : 033 004 081 degrees QTc Int : 474 ms Normal sinus rhythm Anterior infarct , age undetermined Abnormal ECG Confirmed by FILI VINES, INOCENCIO ([id number]), make up editor JACOBO GILLILAND ([id number]) on 02/17/2019 11:26:44 AM Referred By: Virgil Murray Confirmed By:INOCENCIO PENN MD
--- NOTE | 2019-02-12 16:42 | RAD_ITS ---
STUDY: X-RAY CHEST REASON FOR EXAM: Female, 43 years old. Chest pain TECHNIQUE: Frontal view of the chest COMPARISON: X-ray chest November 01, 2018 FINDINGS: The lungs are clear. There are no pleural effusions. There is no pneumothorax. The heart is normal in size. The visualized osseous structures are within normal limits. RAD/Chest 1 View (Portable) IMPRESSION: No acute thoracic pathology. Electronically Signed: Jovi Velásquez, at 17:04 EST Tel , Service support ,
[2019-02-12 17:18] LABS: Absolute Lymphocyte Count 0.92 X10^3/uL (0.83-4.51); Basophil# 0.04 X10^3/uL; Basophil% 0.4 % (0-1); Eosinophils% 0.9 % (0-5); Hematocrit 34.9 % (37-47); Hemoglobin 11.4 g/dL (12.0-15.0); Lymphocyte # 0.92 X10^3/ul (4.0); Lymphocyte % 8.3 % (19-41); Mean Corp Hgb Conc 32.7 g/dL (32-36); Mean Corpuscular Volume 76.5 fL (81-99); Mean Platelet Vol. 9.1 fl (6.2-12.0); Monocyte% 8.1 % (0-10); NRBC Flagged by Analyzer 0 % (0-5); Neutrophil % 81.5 % (47-70); Platelet Count 295 K/mm3 (150-450); RBC Distribution Width CV 17.5 % (11.6-14.6); RBC Distribution Width SD 48.4 fl (35.1-43.9); Red Blood Count 4.56 M/mm3 (4.2-5.4); White Blood Count 11.1 K/mm3 (4.4-11.0)
[2019-02-12] MEDS: Ondansetron 4 MG/2 ML Vial IV ×2 (17:21→23:08)
[2019-02-12 17:29] LABS: International Normalized Ratio 1.2; Prothrombin Time (Protime)PT. 14.7 SECONDS (11.7-14.9)
[2019-02-12 17:30] LABS: Partial Thromboplast Time 34.6 Seconds (24.1-36.2)
[2019-02-12] MEDS: Morphine 4 MG/ML Syringe IV (17:34)
[2019-02-12 17:38] LABS: ALB/GLOB Ratio 0.5 RATIO (0.9-2.4); AST(SGOT) 11 U/L (15-37); Alanine Aminotransfer ALT/SGPT 8 U/L (13-56); Albumin, Serum 2.1 g/dL (3.2-5.0); Alkaline Phosphatase 98 U/L (45-117); Anion Gap 9 (5-15); BUN 26 mg/dL (7-18); Calcium,Total 8.3 mg/dL (8.5-10.1); Chloride 100 mmol/L (98-107); Creatinine, Serum 5.23 mg/dL (0.55-1.02); EST Glomerular Filtration Rate 10 mL/min (>60); Est Glom Filt Rate - Afr Amer 12 mL/min (>60); Estimated Creatinine Clearance 10.97 ml/min; Globulin 4.5 g/dL (2.2-4.2); Glucose 190 mg/dL (74-106); Lipase 22 U/L (73-393); Protein, Total 6.6 g/dL (6.4-8.2); Sodium Level 138 mmol/L (136-145)
[2019-02-12 18:37] LABS: Bacteria 0 SEEN /hpf (None Seen); Mucous, Urine 0 SEEN /hpf (<or=2+); Red Blood Cells-Urine 0 SEEN /hpf (0-5); Squamous Epithelial Cells - UA 0 SEEN /hpf (5-10)
[2019-02-12 18:41] LABS: Color, Urine Yellow (Yellow); Glucose, Dipstick 100 mg/dl (Normal); Ketone-Dipstick Negative (Negative); Leukocyte Esterase-Dipstick 500 /ul (Negative); Nitrite-Dipstick Negative (Negative); Occult Blood-Urine 150 /ul (Negative); Protein-Dipstick 100 mg/dl (Negative); Specific Gravity, Urine 1.015 (1.002-1.030); Urine Bilirubin Dipstick Negative (Negative); Urine Clarity Cloudy (Clear); Urine Urobilinogen Normal (Normal); Urine pH 6.5 (5.0 - 8.0)
[2019-02-12 18:44] LABS: White Blood Cells >100 SEEN /hpf (0-5)
--- NOTE | 2019-02-12 19:09 | ED.DCSUM_ITS ---
- ER Visit Summary Date of Service: 02/12/19 Chief Complaint: Multiple complaints History of Present Illness: The patient is a 43 F who presents with multiple complaints. Her main complaint involves nausea, vomiting, and diarrhea. This has been going on for several days. Her symptoms are worse with eating. She feels like she might be getting dehydrated. She does have a history of end- stage renal disease and is on peritoneal dialysis. She also has a history of diabetes, hypertension, anemia, and others. She is also complaining of some wounds to her bilateral inguinal region and calcifications in her legs. Physical Examination: Afebrile and vital signs unremarkable. Patient alert and oriented. No acute distress. Skin is dry and scaly but otherwise unremarkable. No redness, warmth, etc. Heart regular rate and rhythm. Lungs clear. Abdomen soft and nontender. No guarding or rebound. Patient has superficial skin ulcerations to her bilateral inguinal region within her skin folds. There is no surrounding erythema or warmth. Extremities are neurovascular intact. Test Results: EKG showed sinus rhythm at a rate of [address]-T wave changes. No sign of acute ischemia or infarction pattern. Chest x-ray showed nothing acute. Troponin normal. White count 11.1 and hemoglobin 11.4, stable. Potassium 3.0, BUN 26, creatinine 5.23. Hepatic panel, coags, lipase unremarkable. We were unable to collect stool testing. Emergency Department Course and Treatment: Patient was treated with IV fluids, pain medicine, Zofran. On reevaluation, the patient is still having some nausea. She was able to tolerate some mario crackers by mouth, but was unable to take medication, specifically K-Dur. She was able to take some potassium solution down. She does not feel that she will be able to eat and drink at home. She has concerns that she is not feeling much better and is worried about dehydration. We talked about her going home, but she does not feel safe. I will contact the hospitalist. Treatment Plan: As above Disposition: Observation Impression: 1. Nausea, vomiting, diarrhea 2. Bilateral skin ulcerations inguinal region 3. Hypokalemia This note was generated with Wikiswayation software. It may contain incorrect words, spelling, and punctuation that were not noted in review of the chart prior to signing ED Disposition - Plan for ED Patient: Instructions: DIET, Vomiting or Diarrhea [6yr-Adult] Prescriptions: Ondansetron [Zofran Odt] 4 mg PO Q8H PRN PRN #10 tab PRN Reason: Nausea Prescription Printed Referrals: Alan Goncalves MD [STAFF PHYSICIAN] - Melvi Eastman MD [Primary Care Provider] -
--- NOTE | 2019-02-12 19:16 | ED.DEP ---
ED Disposition - Plan for ED Patient: Instructions: DIET, Vomiting or Diarrhea [6yr-Adult] Prescriptions: Ondansetron [Zofran Odt] 4 mg PO Q8H PRN PRN #10 tab PRN Reason: Nausea Prescription Printed Referrals: Melvi Eastman MD [Primary Care Provider] - Alan Goncalves MD [STAFF PHYSICIAN] -
--- NOTE | 2019-02-12 19:43 | ED.RN ---
PT UPSET ABOUT BEING SENT HOME. PT STATES THIS IS NOT THE STOMACH BUG AND I KNOW I WILL HAVE TO COME BACK BECAUSE I CAN NOT KEEP ANYTHING DOWN. PT HAS COMPLETED PO CHALLENGED WITH WATER AND AMITA CRACKERS SUCCESSFULLY.RN TO INFORM DR CALDERON OF PATIENT'S CONCERNS.
[2019-02-12 20:29] VITALS: BMI 45.8
--- NOTE | 2019-02-12 20:37 | HP.PCM_ITS ---
Problem List (1) Gastroparesis Status: Acute History of Present Illness Date of Admission: 02/12/19 Chief Complaint: intractable nausea vomiting. The patient is a 43 year old F presents with a several day history of intractable nausea and vomiting and diarrhea. Began suddenly just has not relented during this period of time. And presented to the emergency room and she underwent a work-up that showed a potassium of 3. She received morphine, Zofran, K. Dur and IV fluids. Still feels ill. They tend to send her home the patient was just feeling too weak. Patient states that she feels like this every several months. Is never been formally diagnosed with gastroparesis, however. Patient is on peritoneal dialysis as a last ditch effort as patient has had steal syndrome related with fistulas that she has had her received before and so can no longer be on hemodialysis at this point time. Patient has initiated peritoneal dialysis back in November, so was having these issues prior to that. [] Past Medical History Past Medical History (Chronic Problems): Chronic Problems (Last Reviewed 09/23/18 @ 10:30 by Fahad Parker MD) ESRD (end stage renal disease) (Chronic) Debility (Chronic) Orthostatic hypotension (Chronic) Chronic renal failure, stage 4 (severe) (Chronic) Morbid obesity (Chronic) HTN (hypertension) (Chronic) Bilateral hydronephrosis (Chronic) Iron deficiency anemia (Chronic) Type II diabetes mellitus (Chronic) Coronary artery disease (Chronic) Chronic low back pain (Chronic) Hydroureter (Chronic) Bladder outlet obstruction (Chronic) Medical History: Medical History (Last Reviewed 02/12/19 @ 20:40 by Virgil Murray DO) Chronic renal failure, stage 4 (severe) (Chronic) N18.4 Anemia D64.9 Anxiety and depression F41.8 Back problem M53.9 Carpal tunnel syndrome G56.00 Diabetes type 2, controlled E11.9 H/O nephrolithotomy with removal of calculi Z98.890, Z87.442 H/O transfusion of whole blood Z92.89 Headache R51 Heart disease I51.9 Hives L50.9 Kidney disease N28.9 Kidney failure N19 Kidney stone N20.0 Neuropathy G62.9 Recurrent infections B99.9 Seasonal allergies J30.2 UTI (urinary tract infection) N39.0 Vitamin deficiency E56.9 HTN (hypertension) I10 Allergies ciprofloxacin [From Cipro] Adverse Reaction (Verified 12/26/18 00:36) Vomiting contrast dye Allergy (Severe, Uncoded 12/26/18 00:36) Anaphylaxis Home Medications: Ambulatory Orders Medication Instructions Recorded Ergocalciferol [Vitamin D] 50,000 unit PO WE 04/18/17 Venlafaxine XR [Effexor Xr] 150 mg PO DAILY 02/28/18 Aspirin E.C. [Ecotrin] 81 mg PO DAILY@0800 07/15/18 Nortriptyline HCl [Pamelor] 50 mg PO QHS 07/15/18 Pregabalin [Lyrica] 50 mg PO BID 07/15/18 Bupropion HCl [Bupropion Xl] 300 mg PO DAILY 09/22/18 Calcium Acetate 3 cap PO TIDCM 11/01/18 Hydrocodone/Acetaminophen 1 tab PO PRN PRN 11/01/18 [Hydrocodone-Acetamin 5-325 mg] cycloBENZAPRine HCl [Flexeril] 10 mg PO TID PRN #20 tab 12/26/18 Ondansetron [Zofran Odt] 4 mg PO Q8H PRN PRN #10 tab 02/12/19 Surgical History: Surgical History (Last Reviewed 02/12/19 @ 20:40 by Virgil Murray DO) H/O heart artery stent Z95.5 History of carpal tunnel surgery Z92.89 Presence of surgically created arteriovenous shunt for hemodialysis Z99.2 Surgical History: - - PCI, bilateral ureteral stent placements and removal, AVF creation, tunnel intervention, port placement. 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 Paternal History Items: Unknown - Patient was adopted and she does not know her family of origin to be able to provide any family medical history. Review of Systems Constitutional: Reports: Anorexia, Malaise, Weakness. Denies: Chills, Fever Eyes: Denies: Blurred vision, Double vision HEENT: Denies: Head Aches, Sinus Congestion, Sinus Drainage Cardiovascular: Denies: Chest Pain, Palpitations Respiratory: Reports: Cough. Denies: Sputum production Gastrointestinal: Reports: Diarrhea, Nausea, Vomiting. Denies: Abdominal Pain Genitourinary: Denies: Dysuria, Hematuria Musculoskeletal: Reports: Arm Pain, Leg Pain Skin: Reports: Dryness, - - Sores underneath the right side of her pannus. Patient also has a painful lesion on her right anterior leg Neurological: Reports: Numbness. Denies: Focal weakness, Tingling Psychiatric: Denies: Anxiety, Depression Hematologic/ Lymphatic: Reports: Hx of blood clot. Denies: Easy Bruising, Easy Bleeding Comment: All review systems are otherwise negative except for as mentioned above in the review of systems and HPI. VTE Information - Inpt Only VTE Present on Admission: No VTE Mechan Device Prophylaxis: None VTE Pharm Prophylaxis ordered?: No Reason prophylaxis not ordered:: Procedure Not Indicated Patient Problems: Active and Suspected Problems (Last Reviewed 09/23/18 @ 10:30 by Fahad Parker MD) Gastroparesis (Acute) - Physical Exam Vitals/I&O's: Vital Signs Temp Pulse Resp BP Pulse Ox 36.7 C 96 16 117/76 98 02/12/19 16:13 02/12/19 16:13 02/12/19 16:13 02/12/19 16:13 02/12/19 16:13 Oxygen Delivery Method Room Air Weight: 114 kg Body Mass Index (BMI) 45.9 Finger Stick Blood Glucose 98 Intake and Output for Last 24 Hours 02/10/19 02/11/19 02/12/19 23:59 23:59 23:59 Intake Total 500 / 500 Balance 500 / 500 General: Alert, Cooperative, - - Comfortable. HEENT: Atraumatic, Normocephalic Oral: Moist Mucosa, No Gingival or Mucosal Lesions/ Ulcerations Neck: No Nodes, Trachea Midline Lungs: Clear to auscultation, Normal air movement, No rhonchi, No wheeze, No rales Cardiovascular: Regular rate, Regular Rhythm, Normal S1, Normal S2, No murmurs Abdomen: Bowel Sounds Present, Soft, Non Tender, Non-Distended, No Hepato- splenomegaly Extremities: No edema, No Calf Tenderness Skin: - - Patient has cannula intertrigo with her pannus and has some open wounds on the right lateral aspect of her pannus. Patient also has a painful lesion on her right anterior leg is slightly firm and tender. No surrounding erythema. Patient has dry skin throughout as well. Musculoskeletal: No Tenderness to Palpation of Joints or Extremities, No Muscle Wasting Neurological: Coordination normal, - - No clonus Psych/Mental Status: Normal Affect, Appropriate Laboratory Results 02/12/19 17:10: WBC 11.1 H, RBC 4.56, Hgb 11.4 L, Hct 34.9 L, MCV 76.5 L, MCH 25.0 L, MCHC 32.7, RDW Std Deviation 48.4 H, RDW Coeff of Lu 17.5 H, Plt Count 295, MPV 9.1, Immature Gran % (Auto) 0.800, Neut % (Auto) 81.5 H, Lymph % (Auto) 8.3 L, Moore % (Auto) 8.1, Eos % (Auto) 0.9, Baso % (Auto) 0.4, Absolute Neuts (auto) 9.0 H, Absolute Lymphs (auto) 0.92, Nucleated RBC % 0 02/12/19 17:10: PT 14.7, INR 1.2, APTT 34.6 02/12/19 17:10: Sodium 138, Potassium 3.0 L, Chloride 100, Carbon Dioxide 29.0, Anion Gap 9, BUN 26 H, Creatinine 5.23 H, Estim Creat Clear Calc 10.97, Est GFR (MDRD) Af Amer 12 L, Est GFR (MDRD) Non-Af 10 L, BUN/Creatinine Ratio 5.0 L, Glucose 190 H, Calcium 8.3 L, Total Bilirubin 0.60, AST 11 L, ALT 8 L, Alkaline Phosphatase 98, Troponin I < 0.015, Total Protein 6.6, Albumin 2.1 L, Globulin 4.5 H, Albumin/Globulin Ratio 0.5 L, Lipase 22 L 02/12/19 17:10: Lactic Acid 1.0 02/12/19 18:16: Urine Color Yellow, Urine Clarity Cloudy, Urine pH 6.5, Ur Specific [place] 1.015, Urine Protein 100 H, Urine Glucose (UA) 100 H, Urine Ketones Negative, Urine Occult Blood 150 H, Urine Nitrite Negative, Urine Bilirubin Negative, Urine Urobilinogen Normal, Ur Leukocyte Esterase 500 H, Urine RBC 0 SEEN, Urine WBC >100 SEEN, Ur Squamous Epith Cells 0 SEEN, Urine Bacteria 0 SEEN, Urine Mucus 0 SEEN Assessment/Plan All Active Problems (Last Reviewed 09/23/18 @ 10:30 by Fahad Parker MD) Lower extremity weakness (Acute) Generalized weakness (Acute) Gastroparesis (Acute) Syncope (Acute) 1. Suspected acute exacerbation of gastroparesis * She has not been formally diagnosed with that but did have a gastric imaging study performed in March 2018 that was negative * Patient certainly has multiple risk factors for it, being a type II diabetic, though controlled, on peritoneal dialysis and has been receiving narcotics intermittently. * We will check another gastric emptying study to see if it showing any evidence of gastroparesis at this time. * In regards to her diabetes, per her description, it sounds very well controlled. Previous A1c has been 5.8 in March * Patient has received some prescriptions for Percocet but for short supplies. Advised minimizing narcotics as much as possible. * Unfortunately, the peritoneal dialysis is what appears to be the patient's last ditch option as hemodialysis has been more or less eliminated due to her steal syndromes that she is had. * May consider metoclopramide if is not improving but will hold off and at this time * Supportive management 2. Hypokalemia * Did receive potassium in the emergency room * Will check magnesium in the morning * Probably with the nausea and vomiting 3. End-stage renal disease * On peritoneal dialysis * Nephrology on consult and Dr. Odonnell has been contacted via [facility] 4. Diabetes mellitus type 2: Not on any medications. Previous A1c has been normal. Sliding scale insulin for now. 5. VTE prophylaxis: Low risk as patient is observation status at this time. Code Visit OBSV E&M: 22686 Initial observation care L3
[2019-02-12 21:02] VITALS: BP 147/88; PULSE 89; RESP 16; TEMP 36.6; O2SAT 97
[2019-02-12 21:48] LABS: Phosphorus 3.6 mg/dL (2.5-4.9)
--- NOTE | 2019-02-12 22:25 | NM_ITS ---
CLINICAL: 43-year-old diabetic female with reported history of episodic nausea. SEMI-SOLID PHASE 99m Tc SULFUR COLLOID GASTRIC EMPTYING STUDY COMPARISON: Previous gastric emptying study report 03/04/2018 FINDINGS: The patient was administered 1.0 mCi of 99m Tc sulfur colloid mixed with oatmeal and consumed per os. Image acquisitions in the anterior-posterior projections for a total of 60 minutes. There is prompt visualization of the stomach. There is no gastroesophageal reflux identified. The T1/2 linear fit was calculated to be 77.2 minutes, (Normal: 12-56 minutes). NM/Gastric Emptying Study IMPRESSION: 1. ABNORMAL 99m Tc sulfur colloid semi-solid phase (oatmeal) gastric emptying imaging examination. A. There is delayed semi-solid phase gastric emptying compared to normal controls with maintained first order kinetics throughout all components of the examination. (Indu et al, J Nucl Med Tech 38: 186, 2010). B. Compared to the previous gastric emptying examination dated 03/04/2018, there is current abnormal semisolid phase emptying as described above. Electronically Signed: Alhaji Parrish DO at 12:49 EST Tel , Service support ,
[2019-02-12 22:40] VITALS: PULSE 89; RESP 16; O2SAT 97
[2019-02-12] MEDS: 0.9% Saline Lock 10 ML Syringe IV (23:04)
[2019-02-12] MEDS: Pregabalin 50 MG Capsule PO (23:07)
[2019-02-12] MEDS: oxyCODONE 5 MG Tablet 10 MG PO (23:07)
[2019-02-12] MEDS: Nortriptyline 25 MG Capsule 50 MG PO (23:07)
[2019-02-12] MEDS: MELATONIN 3 MG TABLET PO (23:07)
[2019-02-12] MEDS: Nystatin Ointment 1 APPLIC TOPICAL (23:08)
[2019-02-12] MEDS: guaiFENesin 10 ML UDC (200MG/10ML) 20 ML PO (23:09)
--- NOTE | 2019-02-12 23:21 | DIALYSIS ---
[facility] tx initiated without complications using aseptic technique. Cleaned exit site. Site benign. New dressing applied and secured. Initial drain and fill completed. Effluent clear, pale yellow. No fibrin noted. Pt has no c/o at this time. Report given to JULITO Downey. Pt stable
[2019-02-13 00:26] LABS: Bedside Glucose 115 mg/dL (70-110)
[2019-02-13] MEDS: Morphine 2 MG/ML Syringe IV ×2 (00:27→06:48)
[2019-02-13] MEDS: 0.9% Saline Lock 10 ML Syringe IV ×3 (02:38→22:10)
[2019-02-13 02:41] VITALS: BP 113/73; PULSE 90; RESP 16; TEMP 36.3; O2SAT 98
[2019-02-13] MEDS: oxyCODONE 5 MG Tablet 10 MG PO ×2 (03:01→17:31)
[2019-02-13 06:43] LABS: Absolute Lymphocyte Count 1.05 X10^3/uL (0.83-4.51); Absolute Neutrophil Count 6.7 X10^3/uL (2.0-7.7); Basophil# 0.02 X10^3/uL; Basophil% 0.2 % (0-1); Eosinophil# 0.22 X10^3/uL; Eosinophils% 2.5 % (0-5); Hematocrit 32.2 % (37-47); Hemoglobin 9.9 g/dL (12.0-15.0); Lymphocyte # 1.05 X10^3/ul (4.0); Lymphocyte % 11.8 % (19-41); Mean Corp Hgb Conc 30.7 g/dL (32-36); Mean Corpuscular Hgb 24.3 pg (27.0-32.0); Mean Corpuscular Volume 78.9 fL (81-99); Mean Platelet Vol. 9.3 fl (6.2-12.0); Monocyte# 0.92 X10^3/uL; Monocyte% 10.3 % (0-10); NRBC Flagged by Analyzer 0 % (0-5); Neutrophil # 6.66 X10^3/uL (2.7-7.7); Neutrophil % 74.5 % (47-70); Platelet Count 273 K/mm3 (150-450); RBC Distribution Width CV 17.8 % (11.6-14.6); RBC Distribution Width SD 51.1 fl (35.1-43.9); Red Blood Count 4.08 M/mm3 (4.2-5.4); White Blood Count 8.9 K/mm3 (4.4-11.0)
[2019-02-13 06:46] LABS: Bedside Glucose 180 mg/dL (70-110)
[2019-02-13] MEDS: Insulin Lispro 100 UNIT/ML INSULN.PEN SC ×2 (06:47→22:34)
[2019-02-13 07:04] LABS: Anion Gap 9 (5-15); BUN 26 mg/dL (7-18); BUN/Creat Ratio 5.3 RATIO (10-20); Calcium,Total 7.6 mg/dL (8.5-10.1); Chloride 100 mmol/L (98-107); Creatinine, Serum 4.89 mg/dL (0.55-1.02); EST Glomerular Filtration Rate 10 mL/min (>60); Est Glom Filt Rate - Afr Amer 12 mL/min (>60); Estimated Creatinine Clearance 11.73 ml/min; Glucose 180 mg/dL (74-106); Magnesium 1.5 mg/dL (1.6-2.6); Potassium 4.6 mmol/L (3.5-5.1); Sodium Level 137 mmol/L (136-145)
[2019-02-13 07:12] LABS: Hemoglobin A1c 7.3 % (4.2-6.3)
--- NOTE | 2019-02-13 07:33 | PCM.PN.HOSP ---
Patient Problems: Active and Suspected Problems (Last Reviewed 02/12/19 @ 20:40 by Virgil Murray DO) Gastroparesis (Acute) Subjective: Follow-up on gastroparesis: Patient was seen and examined. Still has nausea. Gastric emptying study was positive. Objective: Physical exam: General: Alert, Cooperative, - - Comfortable. HEENT: Atraumatic, Normocephalic Oral: Moist Mucosa, No Gingival or Mucosal Lesions/ Ulcerations Neck: No Nodes, Trachea Midline Lungs: Clear to auscultation, Normal air movement, No rhonchi, No wheeze, No rales Cardiovascular: Regular rate, Regular Rhythm, Normal S1, Normal S2, No murmurs Abdomen: Bowel Sounds Present, Soft, Non Tender, Non-Distended, No Hepato-splenomegaly Extremities: No edema, No Calf Tenderness Skin: - - Patient has cannula intertrigo with her pannus and has some open wounds on the right lateral aspect of her pannus. Patient also has a painful lesion on her right anterior leg is slightly firm and tender. No surrounding erythema. Patient has dry skin throughout as well. Musculoskeletal: No Tenderness to Palpation of Joints or Extremities, No Muscle Wasting Neurological: Coordination normal, - - No clonus Psych/Mental Status: Normal Affect, Appropriate Vitals/I&O's: Vital Signs Temp Pulse Resp BP Pulse Ox 97.4 F L 90 16 113/73 98 02/13/19 02:41 02/13/19 02:41 02/13/19 02:41 02/13/19 02:41 02/13/19 02:41 Oxygen Delivery Method Room Air Weight: 113.6 kg Body Mass Index (BMI) 45.8 Finger Stick Blood Glucose 98 Intake and Output for Last 24 Hours 02/11/19 02/12/19 02/13/19 23:59 23:59 23:59 Intake Total 500 / 600 877.5 / 877.5 Balance 500 / 600 877.5 / 877.5 Laboratory Results 02/12/19 17:10: WBC 11.1 H, RBC 4.56, Hgb 11.4 L, Hct 34.9 L, MCV 76.5 L, MCH 25.0 L, MCHC 32.7, RDW Std Deviation 48.4 H, RDW Coeff of Lu 17.5 H, Plt Count 295, MPV 9.1, Immature Gran % (Auto) 0.800, Neut % (Auto) 81.5 H, Lymph % (Auto) 8.3 L, Orange % (Auto) 8.1, Eos % (Auto) 0.9, Baso % (Auto) 0.4, Absolute Neuts (auto) 9.0 H, Absolute Lymphs (auto) 0.92, Nucleated RBC % 0 02/12/19 17:10: PT 14.7, INR 1.2, APTT 34.6 02/12/19 17:10: Sodium 138, Potassium 3.0 L, Chloride 100, Carbon Dioxide 29.0, Anion Gap 9, BUN 26 H, Creatinine 5.23 H, Estim Creat Clear Calc 10.97, Est GFR (MDRD) Af Amer 12 L, Est GFR (MDRD) Non-Af 10 L, BUN/Creatinine Ratio 5.0 L, Glucose 190 H, Calcium 8.3 L, Total Bilirubin 0.60, AST 11 L, ALT 8 L, Alkaline Phosphatase 98, Troponin I < 0.015, Total Protein 6.6, Albumin 2.1 L, Globulin 4.5 H, Albumin/Globulin Ratio 0.5 L, Lipase 22 L 02/12/19 17:10: Lactic Acid 1.0 02/12/19 17:10: Phosphorus 3.6 02/12/19 18:16: Urine Color Yellow, Urine Clarity Cloudy, Urine pH 6.5, Ur Specific [place] 1.015, Urine Protein 100 H, Urine Glucose (UA) 100 H, Urine Ketones Negative, Urine Occult Blood 150 H, Urine Nitrite Negative, Urine Bilirubin Negative, Urine Urobilinogen Normal, Ur Leukocyte Esterase 500 H, Urine RBC 0 SEEN, Urine WBC >100 SEEN, Ur Squamous Epith Cells 0 SEEN, Urine Bacteria 0 SEEN, Urine Mucus 0 SEEN 02/12/19 23:02: POC Glucose 115 H 02/13/19 05:55: WBC 8.9, RBC 4.08 L, Hgb 9.9 L, Hct 32.2 L, MCV 78.9 L, MCH 24.3 L, MCHC 30.7 L, RDW Std Deviation 51.1 H, RDW Coeff of Lu 17.8 H, Plt Count 273, MPV 9.3, Immature Gran % (Auto) 0.700, Neut % (Auto) 74.5 H, Lymph % (Auto) 11.8 L, Orange % (Auto) 10.3 H, Eos % (Auto) 2.5, Baso % (Auto) 0.2, Absolute Neuts (auto) 6.7, Absolute Lymphs (auto) 1.05, Nucleated RBC % 0 02/13/19 05:55: Sodium 137, Potassium 4.6, Chloride 100, Carbon Dioxide 28.0, Anion Gap 9, BUN 26 H, Creatinine 4.89 H, Estim Creat Clear Calc 11.73, Est GFR (MDRD) Af Amer 12 L, Est GFR (MDRD) Non-Af 10 L, BUN/Creatinine Ratio 5.3 L, Glucose 180 H, Calcium 7.6 L, Magnesium 1.5 L 02/13/19 05:55: Hemoglobin A1c 7.3 H 02/13/19 06:38: POC Glucose 180 H Current Medications Acetaminophen (Tylenol) 650 mg PO Q6H PRN PRN PRN Reason: Pain Score 1-3/Temp > 100.7 F Aspirin (Ecotrin) 81 mg PO DAILY@0800 [facility] Bupropion HCl (Wellbutrin Xl) 300 mg PO DAILY [facility] Cyclobenzaprine HCl (Flexeril) 10 mg PO TID PRN PRN PRN Reason: MUSCLE SPASM Dextrose (D50w Syringe) 0 gm IV X1 PRN; Protocol PRN Reason: Hypoglycemia Glucagon () 1 mg IM .X1 PRN PRN Reason: Hypoglycemia Guaifenesin (Robitussin) 20 ml PO Q4H PRN PRN PRN Reason: COUGH Last Admin: 02/12/19 23:09 Dose: 20 ml Documented by: Insulin Human Lispro (Humalog Kwikpen (Bkc)) 0 unit SC TIDAC [facility]; Protocol Last Admin: 02/13/19 06:47 Dose: 1 u Documented by: Melatonin (Melatonin) 3 mg PO QHS PRN PRN PRN Reason: INSOMNIA Last Admin: 02/12/19 23:07 Dose: 3 mg Documented by: Morphine Sulfate () 2 mg IV Q3H PRN PRN PRN Reason: breakthrough pain (-01/08) Last Admin: 02/13/19 06:48 Dose: 2 mg Documented by: Nortriptyline HCl (Pamelor) 50 mg PO QHS [facility] Last Admin: 02/12/19 23:07 Dose: 50 mg Documented by: Nutritional Formula (Lactose Free) (Ensure Clear) 120 ml PO TIDCM [facility] Nystatin (Mycostatin) 1 applic TOPICAL BID [facility]; Protocol Last Admin: 02/12/19 23:08 Dose: 1 applicatio Documented by: Ondansetron HCl (Zofran) 4 mg IV Q8H PRN PRN PRN Reason: NAUSEA/VOMITING Last Admin: 02/12/19 23:08 Dose: 4 mg Documented by: Oxycodone HCl (Oxyir) 5 mg PO Q4H PRN PRN PRN Reason: Pain Score 4-5/10 Oxycodone HCl (Oxyir) 10 mg PO Q4H PRN PRN PRN Reason: Pain Score 6-10/10 Last Admin: 02/13/19 03:01 Dose: 10 mg Documented by: Pregabalin (Lyrica) 50 mg PO BID [facility] Last Admin: 02/12/19 23:07 Dose: 50 mg Documented by: Prochlorperazine Edisylate (Compazine Iv) 5 mg IV Q4H PRN PRN PRN Reason: Breakthrough nausea/vomiting Sodium Chloride () 10 - 40 ml IV UD PRN PRN Reason: SALINE FLUSH Last Admin: 02/13/19 06:48 Dose: 10 ml Documented by: Venlafaxine HCl (Effexor Xr) 150 mg PO DAILY [facility] Medical Necessity - Tobacco Use Smoking Status: Never smoker Assessment/Plan All Active Problems (Last Reviewed 02/12/19 @ 20:40 by Virgil Murray DO) Lower extremity weakness (Acute) Generalized weakness (Acute) Gastroparesis (Acute) Syncope (Acute) 1.Acute exacerbation of gastroparesis, status post gastric emptying study today Start on low-dose Reglan 5 mg p.o. 3 times daily We will monitor for extraparametal symptoms in the light of her other medications 2. Hypokalemia, resolved, check in a.m. 3. Hypomagnesemia, Mg 1.5 Will replace, recheck in am 4. End-stage renal disease, on peritoneal dialysis Nephrology following, patient will be getting peritoneal dialysis 5. Diabetes mellitus type 2, blood sugars are controlled, on insulin sliding scale 6. DVT prophylaxis-ambulation recommended Code Visit Inpatient E&M: 15615 Subs Hosp L2
--- NOTE | 2019-02-13 09:17 | NURSING ---
Pt states that her mother was concerned about some dark discoloration to bilateral anteromedial thighs. These area are dry and tender to touch. Pt states the kidney doctor told her they would be calcium deposits (calciphylaxis). No open areas to the thighs and no signs of infection. bilateral lower legs are extremely dry. orders received for Eucerin to help moisturize the legs. will monitor. pt denies further needs at this time.
[2019-02-13 09:31] VITALS: BP 109/56; PULSE 88; RESP 16; TEMP 36.4; O2SAT 99
--- NOTE | 2019-02-13 09:48 | NURSING ---
wound photo: left lower abdomen
--- NOTE | 2019-02-13 09:51 | NURSING ---
wound photo: right abdominal fold
[2019-02-13] MEDS: Ondansetron 4 MG/2 ML Vial IV (10:52)
--- NOTE | 2019-02-13 10:54 | CON.PCM_ITS ---
Consultation - Renal 02/13/19 PCP/ Referring MD: Requesting physician: [] Primary care physician: Melvi Eastman MD Reason for Consultation:: ESRD on CCPD - History of Present Illness History of Present Illness: The patient is a 43 year old F with ESRD due to diabetes, obstructive uropathy on CCPD admitted for intractable nausea and vomiting and diarrhea started Saturday night. Denied ill contacts at home. Denied fever, rigors. No appetite past few days. Denies cloudy effluent. She was treated for low potassium of 3. She has been on clindamycin for finger osteo and for skin lesions on thighs. Stool for cdiff pending sample. She has not had any diarrhea since admit. [] - Allergies Allergies: Allergies ciprofloxacin [From Cipro] Adverse Reaction (Verified 12/26/18 00:36) Vomiting contrast dye Allergy (Severe, Uncoded 12/26/18 00:36) Anaphylaxis - Current Medications Current Medications: Current Medications Acetaminophen (Tylenol) 650 mg PO Q6H PRN PRN PRN Reason: Pain Score 1-3/Temp > 100.7 F Aspirin (Ecotrin) 81 mg PO DAILY@0800 [facility] Bupropion HCl (Wellbutrin Xl) 300 mg PO DAILY [facility] Cyclobenzaprine HCl (Flexeril) 10 mg PO TID PRN PRN PRN Reason: MUSCLE SPASM Dextrose (D50w Syringe) 0 gm IV X1 PRN; Protocol PRN Reason: Hypoglycemia Emollient Ointment (Eucerin Intensive Repair) 1 applic TOPICAL 4X/DAY PRN PRN; Protocol PRN Reason: DRY SKIN Glucagon () 1 mg IM .X1 PRN PRN Reason: Hypoglycemia Guaifenesin (Robitussin) 20 ml PO Q4H PRN PRN PRN Reason: COUGH Last Admin: 02/12/19 23:09 Dose: 20 ml Documented by: Insulin Human Lispro (Humalog Kwikpen (Bkc)) 0 unit SC TIDAC [facility]; Protocol Last Admin: 02/13/19 06:47 Dose: 1 u Documented by: Melatonin (Melatonin) 3 mg PO QHS PRN PRN PRN Reason: INSOMNIA Last Admin: 02/12/19 23:07 Dose: 3 mg Documented by: Morphine Sulfate () 2 mg IV Q3H PRN PRN PRN Reason: breakthrough pain (-01/08) Last Admin: 02/13/19 06:48 Dose: 2 mg Documented by: Nortriptyline HCl (Pamelor) 50 mg PO QHS [facility] Last Admin: 02/12/19 23:07 Dose: 50 mg Documented by: Nutritional Formula (Lactose Free) (Ensure Clear) 120 ml PO TIDCM [facility] Nystatin (Mycostatin Powder) 1 applic TOPICAL BID [facility]; Protocol Ondansetron HCl (Zofran) 4 mg IV Q8H PRN PRN PRN Reason: NAUSEA/VOMITING Last Admin: 02/12/19 23:08 Dose: 4 mg Documented by: Oxycodone HCl (Oxyir) 5 mg PO Q4H PRN PRN PRN Reason: Pain Score 4-5/10 Oxycodone HCl (Oxyir) 10 mg PO Q4H PRN PRN PRN Reason: Pain Score 6-10/10 Last Admin: 02/13/19 03:01 Dose: 10 mg Documented by: Pregabalin (Lyrica) 50 mg PO BID [facility] Last Admin: 02/12/19 23:07 Dose: 50 mg Documented by: Prochlorperazine Edisylate (Compazine Iv) 5 mg IV Q4H PRN PRN PRN Reason: Breakthrough nausea/vomiting Sodium Chloride () 10 - 40 ml IV UD PRN PRN Reason: SALINE FLUSH Last Admin: 02/13/19 06:48 Dose: 10 ml Documented by: Venlafaxine HCl (Effexor Xr) 150 mg PO DAILY [facility] - Past Medical History Past Medical History (Chronic Problems): Chronic Problems (Last Reviewed 02/12/19 @ 20:40 by Virgil Murray DO) ESRD (end stage renal disease) (Chronic) Debility (Chronic) Orthostatic hypotension (Chronic) Chronic renal failure, stage 4 (severe) (Chronic) Morbid obesity (Chronic) HTN (hypertension) (Chronic) Bilateral hydronephrosis (Chronic) Iron deficiency anemia (Chronic) Type II diabetes mellitus (Chronic) Coronary artery disease (Chronic) Chronic low back pain (Chronic) Hydroureter (Chronic) Bladder outlet obstruction (Chronic) - Past Surgical History Surgical History: - - PCI, bilateral ureteral stent placements and removal, AVF creation, tunnel intervention, port placement. - Social History Smoking Status: Never smoker - Family History Maternal History Items: Unknown - Patient was adopted and she does not know her family of origin to be able to provide any family medical history. Paternal History Items: Unknown - Patient was adopted and she does not know her family of origin to be able to provide any family medical history. Review of Systems Constitutional: Reports: Anorexia, Weakness. Denies: Chills, Fever Cardiovascular: Reports: Light Headedness. Denies: Chest Pain, Edema Respiratory: Denies: Cough, Shortness of Breath Gastrointestinal: Reports: Diarrhea, Nausea, Vomiting, - - recent antibx therapy with clindamycin. Denies: Abdominal Pain Genitourinary: Denies: Dysuria Skin: Reports: - - induration bilateral lateral thighs. Denies: Rash Psychiatric: Reports: Anxiety, Depression Hematologic/ Lymphatic: Reports: Anemia Patient Problems: Active and Suspected Problems (Last Reviewed 02/12/19 @ 20:40 by Virgil Murray DO) Gastroparesis (Acute) - Physical Exam Vitals/I&O's: Vital Signs Temp Pulse Resp BP Pulse Ox 97.5 F L 88 16 109/56 L 99 02/13/19 09:31 02/13/19 09:31 02/13/19 09:31 02/13/19 09:31 02/13/19 09:31 Oxygen Delivery Method Room Air Weight: 113.6 kg Body Mass Index (BMI) 45.8 Finger Stick Blood Glucose 98 Intake and Output for Last 24 Hours 02/11/19 02/12/19 02/13/19 23:59 23:59 23:59 Intake Total 500 / 600 877.5 / 877.5 Balance 500 / 600 877.5 / 877.5 General: Alert, Oriented x3, Cooperative, No apparent distress Neck: Supple Lungs: Clear to auscultation Cardiovascular: Regular rate Abdomen: Bowel Sounds Present, Soft, Non Tender, Non-Distended, Obese Extremities: No edema Psych/Mental Status: Normal Affect, Alert and oriented to time, place, person, mood and affect Laboratory Results 02/12/19 17:10: WBC 11.1 H, RBC 4.56, Hgb 11.4 L, Hct 34.9 L, MCV 76.5 L, MCH 25.0 L, MCHC 32.7, RDW Std Deviation 48.4 H, RDW Coeff of Lu 17.5 H, Plt Count 295, MPV 9.1, Immature Gran % (Auto) 0.800, Neut % (Auto) 81.5 H, Lymph % (Auto) 8.3 L, [place] % (Auto) 8.1, Eos % (Auto) 0.9, Baso % (Auto) 0.4, Absolute Neuts (auto) 9.0 H, Absolute Lymphs (auto) 0.92, Nucleated RBC % 0 02/12/19 17:10: PT 14.7, INR 1.2, APTT 34.6 02/12/19 17:10: Sodium 138, Potassium 3.0 L, Chloride 100, Carbon Dioxide 29.0, Anion Gap 9, BUN 26 H, Creatinine 5.23 H, Estim Creat Clear Calc 10.97, Est GFR (MDRD) Af Amer 12 L, Est GFR (MDRD) Non-Af 10 L, BUN/Creatinine Ratio 5.0 L, Glucose 190 H, Calcium 8.3 L, Total Bilirubin 0.60, AST 11 L, ALT 8 L, Alkaline Phosphatase 98, Troponin I < 0.015, Total Protein 6.6, Albumin 2.1 L, Globulin 4.5 H, Albumin/Globulin Ratio 0.5 L, Lipase 22 L 02/12/19 17:10: Lactic Acid 1.0 02/12/19 17:10: Phosphorus 3.6 02/12/19 18:16: Urine Color Yellow, Urine Clarity Cloudy, Urine pH 6.5, Ur Specific [place] 1.015, Urine Protein 100 H, Urine Glucose (UA) 100 H, Urine Ketones Negative, Urine Occult Blood 150 H, Urine Nitrite Negative, Urine Bilirubin Negative, Urine Urobilinogen Normal, Ur Leukocyte Esterase 500 H, Urine RBC 0 SEEN, Urine WBC >100 SEEN, Ur Squamous Epith Cells 0 SEEN, Urine Bacteria 0 SEEN, Urine Mucus 0 SEEN 02/12/19 23:02: POC Glucose 115 H 02/13/19 05:55: WBC 8.9, RBC 4.08 L, Hgb 9.9 L, Hct 32.2 L, MCV 78.9 L, MCH 24.3 L, MCHC 30.7 L, RDW Std Deviation 51.1 H, RDW Coeff of Lu 17.8 H, Plt Count 273, MPV 9.3, Immature Gran % (Auto) 0.700, Neut % (Auto) 74.5 H, Lymph % (Auto) 11.8 L, [place] % (Auto) 10.3 H, Eos % (Auto) 2.5, Baso % (Auto) 0.2, Absolute Neuts (auto) 6.7, Absolute Lymphs (auto) 1.05, Nucleated RBC % 0 02/13/19 05:55: Sodium 137, Potassium 4.6, Chloride 100, Carbon Dioxide 28.0, Anion Gap 9, BUN 26 H, Creatinine 4.89 H, Estim Creat Clear Calc 11.73, Est GFR (MDRD) Af Amer 12 L, Est GFR (MDRD) Non-Af 10 L, BUN/Creatinine Ratio 5.3 L, Glucose 180 H, Calcium 7.6 L, Magnesium 1.5 L 02/13/19 05:55: Hemoglobin A1c 7.3 H 02/13/19 06:38: POC Glucose 180 H Current Medications Acetaminophen (Tylenol) 650 mg PO Q6H PRN PRN PRN Reason: Pain Score 1-3/Temp > 100.7 F Aspirin (Ecotrin) 81 mg PO DAILY@0800 [facility] Bupropion HCl (Wellbutrin Xl) 300 mg PO DAILY [facility] Cyclobenzaprine HCl (Flexeril) 10 mg PO TID PRN PRN PRN Reason: MUSCLE SPASM Dextrose (D50w Syringe) 0 gm IV X1 PRN; Protocol PRN Reason: Hypoglycemia Emollient Ointment (Eucerin Intensive Repair) 1 applic TOPICAL 4X/DAY PRN PRN; Protocol PRN Reason: DRY SKIN Glucagon () 1 mg IM .X1 PRN PRN Reason: Hypoglycemia Guaifenesin (Robitussin) 20 ml PO Q4H PRN PRN PRN Reason: COUGH Last Admin: 02/12/19 23:09 Dose: 20 ml Documented by: Insulin Human Lispro (Humalog Kwikpen (Bkc)) 0 unit SC TIDAC [facility]; Protocol Last Admin: 02/13/19 06:47 Dose: 1 u Documented by: Melatonin (Melatonin) 3 mg PO QHS PRN PRN PRN Reason: INSOMNIA Last Admin: 02/12/19 23:07 Dose: 3 mg Documented by: Morphine Sulfate () 2 mg IV Q3H PRN PRN PRN Reason: breakthrough pain () Last Admin: 02/13/19 06:48 Dose: 2 mg Documented by: Nortriptyline HCl (Pamelor) 50 mg PO QHS [facility] Last Admin: 02/12/19 23:07 Dose: 50 mg Documented by: Nutritional Formula (Lactose Free) (Ensure Clear) 120 ml PO TIDCM [facility] Nystatin (Mycostatin Powder) 1 applic TOPICAL BID [facility]; Protocol Ondansetron HCl (Zofran) 4 mg IV Q8H PRN PRN PRN Reason: NAUSEA/VOMITING Last Admin: 02/12/19 23:08 Dose: 4 mg Documented by: Oxycodone HCl (Oxyir) 5 mg PO Q4H PRN PRN PRN Reason: Pain Score 4-5/10 Oxycodone HCl (Oxyir) 10 mg PO Q4H PRN PRN PRN Reason: Pain Score 6-10/10 Last Admin: 02/13/19 03:01 Dose: 10 mg Documented by: Pregabalin (Lyrica) 50 mg PO BID [facility] Last Admin: 02/12/19 23:07 Dose: 50 mg Documented by: Prochlorperazine Edisylate (Compazine Iv) 5 mg IV Q4H PRN PRN PRN Reason: Breakthrough nausea/vomiting Sodium Chloride () 10 - 40 ml IV UD PRN PRN Reason: SALINE FLUSH Last Admin: 02/13/19 06:48 Dose: 10 ml Documented by: Venlafaxine HCl (Effexor Xr) 150 mg PO DAILY [facility] Assessment/Plan All Active Problems (Last Reviewed 02/12/19 @ 20:40 by Virgil Murray DO) Lower extremity weakness (Acute) Generalized weakness (Acute) Gastroparesis (Acute) Syncope (Acute) 1. ESRD continue CCPD 2.5% 4 exchanges 2.5L fill volume. Send effluent for cell count r/o peritonitis 2. Anemia hgb stable, iv iron 3. Gastroparesis gastric emptying study 4. HTN stable 5. Hx obstructive uropathy
[2019-02-13] MEDS: buPROPion (XL) 300 MG TABLET.XL PO (13:30)
[2019-02-13] MEDS: Pregabalin 50 MG Capsule PO ×2 (13:30→22:15)
[2019-02-13] MEDS: Venlafaxine XR 150 MG Capsule PO (13:30)
[2019-02-13] MEDS: Aspirin E.C. 81 MG Tablet PO (13:31)
[2019-02-13] MEDS: Nystatin Powder 15gm Bottle 1 APPLIC TOPICAL ×2 (13:32→22:36)
--- NOTE | 2019-02-13 13:57 | DIALYSIS ---
CCPD not completed upon arrival to bedside this morning due to late start and alarming of machine overnight. Pt had disconnected herself around 0930. Effluent found to be hazy yellow, Dr. Odonnell notified and specimen sent for C and S, gram stain and STAT cell count. Vitals stable at this time. Fluid retained 1010ml per cycler. Verbal report given to JULITO Hong prior to depature.
--- NOTE | 2019-02-13 14:15 | CASEMGMT ---
RN CM CARDIOLOGY COORDINATOR CM to room to meet with patient for initial transition planning/care coordination assessment. RN CHAPARRO introduced self and role at [facility]. Pt voices understanding and consents to assessment at this time. Pt resting in bed in no distress at this time. Pt is A/O at this time and answers all questions appropriately. Care providers, pharmacy, and demographics verified at this time. PCP: Raiza Specialists: [facility]--nephrology. Pt does peritoneal dialysis @ home daily. Preferred Pharmacy: [facility] Insurance: [facility] Prescription Benefit: Yes Living Will/HPOA: Pt states she does not have LW, but thinks she has completed POA paperwork in the past and thinks that it is her mother, but she is not sure. Pt made aware that she can talk with SW while here @ [facility] or as an out-pt/make appt in the future if she decides she would like to talk with someone about this to do new/updated forms. Given AD info packet and [employer] Card. LNOK: Mom, Dad, 2 brothers Living Arrangements: Lives alone in an efficiency apartment. is independent w/ADL's. is in the process of getting aide services in the home and has an appt with Matilda next week. She states her parents are supportive and that she usually goes to their home daily. Brother is also supportive. Transportation: Pt states drives self and states no transportation concerns at this time. Parents or brother can assist with driving if needed. DME: has the following DME: Peritoneal Dialysis unit, glucometer. Pt states no need for further DME at this time. HHC/SNF: No history of either and denies needs for either. Pt wishes to return home and states has no concerns with going home at time of discharge. CM to follow for any discharge planning/needs. Pt voices no further concerns/needs at this time. Advised pt to ask for CM if any further questions/concerns/needs arise. Voices understanding. PT Goal: Home Plan: Home Rose LU RN, CM
[2019-02-13 14:18] LABS: Body Fluid Mononuclear WBC % 9.9 %; Body Fluid Polynuclear WBC % 90.1 %; Body Fluid Total Cells Counted 3.556 10^3/ul
[2019-02-13 15:08] LABS: Appearance/Body Fluid CLOUDY; Auto B Fluid Analyzer BKGD Ct COUNTS W/IN LIMITS (W/IN LIMITS); Color/Body Fluid COLORLESS; Source- Body Fluid PERITONEAL FLUID
[2019-02-13 15:09] LABS: Red Cell Count/Body Fluid 31 /mm3
[2019-02-13 16:24] LABS: Monocytes 9 %; Neutrophil (Segs) 91 %
[2019-02-13 17:40] LABS: Bedside Glucose 137 mg/dL (70-110)
[2019-02-13 17:40] LABS: Bedside Glucose 127 mg/dL (70-110)
[2019-02-13 17:59] VITALS: BP 123/52; PULSE 90; RESP 18; TEMP 36.6; O2SAT 100
[2019-02-13] MEDS: Magnesium Sulfate 1 GM in 0.9% Normal Saline 100 ML IV (18:21)
[2019-02-13] MEDS: Metoclopramide 5 MG TABLET PO (18:22)
--- NOTE | 2019-02-13 18:59 | DIALYSIS ---
CCPD initiated per orders 2 bags 2.5% 2000mL fill x 5 exchanges. No final fill. Total Volume [id number]. Dressing changed site benign no drainage noted. Initial drain completed. Effluent yellow cloudy. Pt denies pain or discomfort. Report to RN. Pt tolerating tx well.
[2019-02-13 20:15] VITALS: BP 102/55; PULSE 91; RESP 16; TEMP 37; O2SAT 97
[2019-02-13 22:25] LABS: Bedside Glucose 203 mg/dL (70-110)
[2019-02-13] MEDS: Nortriptyline 25 MG Capsule 50 MG PO (22:52)
[2019-02-14] VITALS (7 sets, daily range): BP systolic 90–118; BP diastolic 48–61; PULSE 85–98; RESP 16–20; TEMP 36.4–37.2; O2SAT 92–98
[2019-02-14] MEDS: Metoclopramide 5 MG TABLET PO ×3 (06:32→16:40)
[2019-02-14 06:40] LABS: Bedside Glucose 102 mg/dL (70-110)
[2019-02-14 07:14] LABS: Anion Gap 8 (5-15); BUN 24 mg/dL (7-18); BUN/Creat Ratio 4.6 RATIO (10-20); Calcium,Total 7.8 mg/dL (8.5-10.1); Chloride 97 mmol/L (98-107); Creatinine, Serum 5.21 mg/dL (0.55-1.02); EST Glomerular Filtration Rate 10 mL/min (>60); Est Glom Filt Rate - Afr Amer 12 mL/min (>60); Estimated Creatinine Clearance 11.01 ml/min; Glucose 109 mg/dL (74-106); Magnesium 1.6 mg/dL (1.6-2.6); Potassium 2.9 mmol/L (3.5-5.1); Sodium Level 136 mmol/L (136-145)
--- NOTE | 2019-02-14 07:27 | PCM.PN.HOSP ---
Patient Problems: Active and Suspected Problems (Last Reviewed 02/12/19 @ 20:40 by Virgil Murray DO) Gastroparesis (Acute) Subjective: Follow-up on gastroparesis: Patient seen and examined. She denies any nausea. She had peritoneal dialysis yesternight with no complains. No diarrhea or abdominal pain. Objective: Physical exam: General: Alert, Cooperative, - - Comfortable. HEENT: Atraumatic, Normocephalic Oral: Moist Mucosa, No Gingival or Mucosal Lesions/ Ulcerations Neck: No Nodes, Trachea Midline Lungs: Clear to auscultation, Normal air movement, No rhonchi, No wheeze, No rales Cardiovascular: Regular rate, Regular Rhythm, Normal S1, Normal S2, No murmurs Abdomen: Bowel Sounds Present, Soft, Non Tender, Non-Distended, No Hepato-splenomegaly Extremities: No edema, No Calf Tenderness Skin: - - Patient has cannula intertrigo with her pannus and has some open wounds on the right lateral aspect of her pannus. Patient also has a painful lesion on her right anterior leg is slightly firm and tender. No surrounding erythema. Patient has dry skin throughout as well. Musculoskeletal: No Tenderness to Palpation of Joints or Extremities, No Muscle Wasting Neurological: Coordination normal, - - No clonus Psych/Mental Status: Normal Affect, Appropriate Vitals/I&O's: Vital Signs Temp Pulse Resp BP Pulse Ox 97.6 F L 88 16 118/61 95 02/14/19 04:00 02/14/19 06:32 02/14/19 04:00 02/14/19 06:32 02/14/19 04:00 Oxygen Delivery Method Room Air Weight: 113.6 kg Body Mass Index (BMI) 45.8 Finger Stick Blood Glucose 98 Intake and Output for Last 24 Hours 02/12/19 02/13/19 02/14/19 23:59 23:59 23:59 Intake Total 500 / 600 1829.5 / 1829.5 50 / 50 Output Total 1000 / 1000 Balance 500 / 600 829.5 / 829.5 50 / 50 Microbiology Past 72 Hours 02/13/19 13:40 Fluid - Peritoneal Gram Stain - Final Laboratory Results 02/13/19 13:29: POC Glucose 127 H 02/13/19 13:40: Fluid Source PERITONEAL FLUID, Fluid Color COLORLESS, Fluid Appearance CLOUDY, Fluid WBC 3.540, Fluid RBC 31, Fluid Tot Cell Count 3.556 H, Fld Polynuclear WBCs # 3.190, Fld Polynuclear WBCs % 90.1, Fluid Mononuclear WBCs 0.350, Fld Mononuclear WBCs % 9.9, Fluid Neutrophils 91, Fluid Monocytes 9, Fl Pathologist Comment May follow, Fluid Comment 2 SEE COMMENT 02/13/19 17:33: POC Glucose 137 H 02/13/19 22:13: POC Glucose 203 H 02/14/19 05:20: Sodium 136, Potassium 2.9 L, Chloride 97 L, Carbon Dioxide 31.0, Anion Gap 8, BUN 24 H, Creatinine 5.21 H, Estim Creat Clear Calc 11.01, Est GFR (MDRD) Af Amer 12 L, Est GFR (MDRD) Non-Af 10 L, BUN/Creatinine Ratio 4.6 L, Glucose 109 H, Calcium 7.8 L, Magnesium 1.6 02/14/19 06:30: POC Glucose 102 Current Medications Acetaminophen (Tylenol) 650 mg PO Q6H PRN PRN PRN Reason: Pain Score 1-3/Temp > 100.7 F Aspirin (Ecotrin) 81 mg PO DAILY@0800 [facility] Last Admin: 02/13/19 13:31 Dose: 81 mg Documented by: Bupropion HCl (Wellbutrin Xl) 300 mg PO DAILY [facility] Last Admin: 02/13/19 13:30 Dose: 300 mg Documented by: Dextrose (D50w Syringe) 0 gm IV X1 PRN; Protocol PRN Reason: Hypoglycemia Emollient Ointment (Eucerin Intensive Repair) 1 applic TOPICAL 4X/DAY PRN PRN; Protocol PRN Reason: DRY SKIN Glucagon () 1 mg IM .X1 PRN PRN Reason: Hypoglycemia Guaifenesin (Robitussin) 20 ml PO Q4H PRN PRN PRN Reason: COUGH Last Admin: 02/12/19 23:09 Dose: 20 ml Documented by: Insulin Human Lispro (Humalog Kwikpen (Bkc)) 0 unit SC [facility]; Protocol Last Admin: 02/14/19 06:32 Dose: Not Given Documented by: Melatonin (Melatonin) 3 mg PO QHS PRN PRN PRN Reason: INSOMNIA Last Admin: 02/12/19 23:07 Dose: 3 mg Documented by: Metoclopramide HCl (Metoclopramide Hcl) 5 mg PO TIDAC [facility] Last Admin: 02/14/19 06:32 Dose: 5 mg Documented by: Nortriptyline HCl (Pamelor) 50 mg PO QHS [facility] Last Admin: 02/13/19 22:52 Dose: 50 mg Documented by: Nutritional Formula (Lactose Free) (Ensure Clear) 120 ml PO TIDCM [facility] Last Admin: 02/13/19 18:09 Dose: Not Given Documented by: Nystatin (Mycostatin Powder) 1 applic TOPICAL BID [facility]; Protocol Last Admin: 02/13/19 22:36 Dose: 1 applicatio Documented by: Oxycodone HCl (Oxyir) 10 mg PO Q4H PRN PRN PRN Reason: Pain Score 6-10/10 Last Admin: 02/13/19 17:31 Dose: 10 mg Documented by: Pregabalin (Lyrica) 50 mg PO BID [facility] Last Admin: 02/13/19 22:15 Dose: 50 mg Documented by: Sodium Chloride () 10 - 40 ml IV UD PRN PRN Reason: SALINE FLUSH Last Admin: 02/13/19 22:10 Dose: 10 ml Documented by: Venlafaxine HCl (Effexor Xr) 150 mg PO DAILY [facility] Last Admin: 02/13/19 13:30 Dose: 150 mg Documented by: STROKE Vital Signs/Narrative: Vital Signs Temp Pulse Resp BP BP Pulse Ox 02/14/19 06:32 88 118/61 02/14/19 04:00 97.6 F L 85 16 92/54 L 95 Medical Necessity - Tobacco Use Smoking Status: Never smoker Assessment/Plan All Active Problems (Last Reviewed 02/12/19 @ 20:40 by Virgil Murray DO) Lower extremity weakness (Acute) Generalized weakness (Acute) Gastroparesis (Acute) Syncope (Acute) 1.Acute exacerbation of gastroparesis, status post gastric emptying study Improving, on Reglan 5 mg p.o. 3 times daily No extrapyramidal symptoms noted 2. Hypokalemia, K 2.9, will replace IV and po, recheck at 1 pm 3. Hypomagnesemia, Mg 1.6, replace 4. End-stage renal disease, on peritoneal dialysis Nephrology following 5. Diabetes mellitus type 2, blood sugars are controlled, on insulin sliding scale 6. DVT prophylaxis-ambulation recommended Code Visit Inpatient E&M: 17647 Subs Hosp L2
[2019-02-14] MEDS: 0.9% Saline Lock 10 ML Syringe IV ×4 (08:28→20:16)
[2019-02-14] MEDS: Aspirin E.C. 81 MG Tablet PO (08:28)
[2019-02-14] MEDS: Potassium Chloride 10mEq/100mL 10 MEQ/100 ML IV.SOLN. 100 MEQ IV BOLUS (08:28)
[2019-02-14] MEDS: oxyCODONE 5 MG Tablet 10 MG PO ×2 (08:59→18:45)
--- NOTE | 2019-02-14 10:00 | DIALYSIS ---
CCPD disconnected using aseptic technique. -451ml UF. Effluent appeared clear yellow in bags however with movement of bags there was then areas of cloudiness noted in bags. Effluent collected and sent in purple top as per lab along with additional fluid in case needed to fulfill ordered testing. Pt denies tenderness to PD cath site. Dressing changed last night remains D/I. Report to Julia VILA
[2019-02-14] MEDS: Potassium Chloride 10mEq/100mL 10 MEQ/100 ML IV.SOLN. 7.5 MEQ IV BOLUS ×3 (10:25→13:06)
[2019-02-14 10:42] LABS: Body Fluid Mononuclear WBC # 0.126 10^3/uL; Body Fluid Mononuclear WBC % 14.7 %; Body Fluid Polynuclear WBC # 0.728 10^3/uL; Body Fluid Polynuclear WBC % 85.3 %; Body Fluid Total Cells Counted 0.859 10^3/ul; White Blood Count/Body Fluid 0.854 10^3/uL
[2019-02-14 11:15] LABS: Appearance/Body Fluid CLEAR; Auto B Fluid Analyzer BKGD Ct COUNTS W/IN LIMITS (W/IN LIMITS); Body Fluid QC Type(s) BF1Q; Color/Body Fluid COLORLESS; Red Cell Count/Body Fluid 6 /mm3; Source- Body Fluid OTHER
[2019-02-14 11:45] LABS: Lymphocytes 6 %; Monocytes 17 %; Neutrophil (Segs) 77 %
[2019-02-14 11:50] LABS: Bedside Glucose 124 mg/dL (70-110)
[2019-02-14] MEDS: Nystatin Powder 15gm Bottle 1 APPLIC TOPICAL ×2 (13:11→21:59)
[2019-02-14] MEDS: buPROPion (XL) 300 MG TABLET.XL PO (14:49)
[2019-02-14] MEDS: Venlafaxine XR 150 MG Capsule PO (14:49)
--- NOTE | 2019-02-14 14:57 | PN.RENAL_ITS ---
Patient Problems: Active and Suspected Problems (Last Reviewed 02/12/19 @ 20:40 by Virgil Murray DO) Gastroparesis (Acute) Subjective: tolerating liquid diet. No nausea, vomiting, abdominal pain. + skin necrosis advance since past Saturday. May need debridement - Physical Exam Vitals/I&O's: Vital Signs Temp Pulse Resp BP Pulse Ox 98.6 F 93 18 99/61 97 02/14/19 08:40 02/14/19 08:40 02/14/19 08:40 02/14/19 08:40 02/14/19 08:40 Oxygen Delivery Method Room Air Weight: 113.6 kg Body Mass Index (BMI) 45.8 Finger Stick Blood Glucose 98 Intake and Output for Last 24 Hours 02/12/19 02/13/19 02/14/19 23:59 23:59 23:59 Intake Total 500 / 600 1829.5 / 1829.5 123.46 / 123.46 Output Total 1000 / 1000 Balance 500 / 600 829.5 / 829.5 123.46 / 123.46 General: Alert, Oriented x3, Cooperative Lungs: Clear to auscultation Cardiovascular: Regular rate Abdomen: Bowel Sounds Present, Soft, Non Tender, Non-Distended, Obese Extremities: No edema Skin: - - skin necrosis bilateral lateral thigh region, tender, indurated Psych/Mental Status: Normal Affect, Alert and oriented to time, place, person, mood and affect Microbiology Past 72 Hours 02/13/19 13:40 Fluid - Peritoneal Gram Stain - Final 02/13/19 13:40 Fluid - Peritoneal Body Fluid Culture - Preliminary No growth-Final to follow Laboratory Results 02/13/19 13:29: POC Glucose 127 H 02/13/19 13:40: Fluid Source PERITONEAL FLUID, Fluid Color COLORLESS, Fluid Appearance CLOUDY, Fluid WBC 3.540, Fluid RBC 31, Fluid Tot Cell Count 3.556 H, Fld Polynuclear WBCs # 3.190, Fld Polynuclear WBCs % 90.1, Fluid Mononuclear WBCs 0.350, Fld Mononuclear WBCs % 9.9, Fluid Neutrophils 91, Fluid Monocytes 9, Fl Pathologist Comment May follow, Fluid Comment 2 SEE COMMENT 02/13/19 17:33: POC Glucose 137 H 02/13/19 22:13: POC Glucose 203 H 02/14/19 05:20: Sodium 136, Potassium 2.9 L, Chloride 97 L, Carbon Dioxide 31.0, Anion Gap 8, BUN 24 H, Creatinine 5.21 H, Estim Creat Clear Calc 11.01, Est GFR (MDRD) Af Amer 12 L, Est GFR (MDRD) Non-Af 10 L, BUN/Creatinine Ratio 4.6 L, Glucose 109 H, Calcium 7.8 L, Magnesium 1.6 02/14/19 06:30: POC Glucose 102 02/14/19 09:30: Fluid Source OTHER, Fluid Color COLORLESS, Fluid Appearance CLEAR, Fluid WBC 0.854, Fluid RBC 6, Fluid Tot Cell Count 0.859 H, Fld Polynuclear WBCs # 0.728, Fld Polynuclear WBCs % 85.3, Fluid Mononuclear WBCs 0.126, Fld Mononuclear WBCs % 14.7, Fluid Neutrophils 77, Fluid Lymphocytes 6, Fluid Monocytes 17, Fl Pathologist Comment May follow, Fluid Comment 2 TNP 02/14/19 11:41: POC Glucose 124 H Current Medications Acetaminophen (Tylenol) 650 mg PO Q6H PRN PRN PRN Reason: Pain Score 1-3/Temp > 100.7 F Aspirin (Ecotrin) 81 mg PO DAILY@0800 [facility] Last Admin: 02/14/19 08:28 Dose: 81 mg Documented by: Bupropion HCl (Wellbutrin Xl) 300 mg PO DAILY [facility] Last Admin: 02/14/19 14:49 Dose: 300 mg Documented by: Dextrose (D50w Syringe) 0 gm IV X1 PRN; Protocol PRN Reason: Hypoglycemia Emollient Ointment (Eucerin Intensive Repair) 1 applic TOPICAL 4X/DAY PRN PRN; Protocol PRN Reason: DRY SKIN Glucagon () 1 mg IM .X1 PRN PRN Reason: Hypoglycemia Guaifenesin (Robitussin) 20 ml PO Q4H PRN PRN PRN Reason: COUGH Last Admin: 02/12/19 23:09 Dose: 20 ml Documented by: Insulin Human Lispro (Humalog Kwikpen (Bkc)) 0 unit [facility]; Protocol Last Admin: 02/14/19 11:47 Dose: Not Given Documented by: Melatonin (Melatonin) 3 mg PO QHS PRN PRN PRN Reason: INSOMNIA Last Admin: 02/12/19 23:07 Dose: 3 mg Documented by: Metoclopramide HCl (Metoclopramide Hcl) 5 mg PO TIDAC [facility] Last Admin: 02/14/19 11:44 Dose: 5 mg Documented by: Nortriptyline HCl (Pamelor) 50 mg PO QHS [facility] Last Admin: 02/13/19 22:52 Dose: 50 mg Documented by: Nutritional Formula (Lactose Free) (Ensure Clear) 120 ml PO TIDCM [facility] Last Admin: 02/14/19 11:59 Dose: Not Given Documented by: Nystatin (Mycostatin Powder) 1 applic TOPICAL BID [facility]; Protocol Last Admin: 02/14/19 13:11 Dose: 1 applicatio Documented by: Oxycodone HCl (Oxyir) 10 mg PO Q4H PRN PRN PRN Reason: Pain Score 6-10/10 Last Admin: 02/14/19 08:59 Dose: 10 mg Documented by: Pregabalin (Lyrica) 50 mg PO BID [facility] Last Admin: 02/14/19 13:08 Dose: Not Given Documented by: Sodium Chloride () 10 - 40 ml IV UD PRN PRN Reason: SALINE FLUSH Last Admin: 02/14/19 09:28 Dose: 10 ml Documented by: Venlafaxine HCl (Effexor Xr) 150 mg PO DAILY [facility] Last Admin: 02/14/19 14:49 Dose: 150 mg Documented by: Medical Necessity - Tobacco Use Smoking Status: Never smoker Assessment/Plan All Active Problems (Last Reviewed 02/12/19 @ 20:40 by Virgil Murray DO) Lower extremity weakness (Acute) Generalized weakness (Acute) Gastroparesis (Acute) Syncope (Acute) 1. ESRD continue CCPD 1.5% and 2.5% bags, 5 exchanges 2L fill volume over 10hrs. ( 4 exchanges 2.5L fill volume at home). Effluent cell count improved today 2. Anemia hgb stable, iv iron 3. Gastroparesis tolerating liquids 4. HTN stable 5. Hx obstructive uropathy 6. Skin necrosis bilat thighs consider plastics evaluation, bx for calciphylaxis
[2019-02-14 16:41] LABS: Bedside Glucose 95 mg/dL (70-110)
--- NOTE | 2019-02-14 17:23 | DIALYSIS ---
[facility] initiated per orders w/o difficulty. only drained 2ml with drain. 1st fill in prgress. effluent appears clear in tubing. Report to Julia VILA
[2019-02-14 17:26] LABS: Anion Gap 8 (5-15); BUN 27 mg/dL (7-18); BUN/Creat Ratio 4.8 RATIO (10-20); Calcium,Total 7.7 mg/dL (8.5-10.1); Chloride 101 mmol/L (98-107); Creatinine, Serum 5.68 mg/dL (0.55-1.02); EST Glomerular Filtration Rate 9 mL/min (>60); Est Glom Filt Rate - Afr Amer 11 mL/min (>60); Glucose 97 mg/dL (74-106); Potassium 4.4 mmol/L (3.5-5.1); Sodium Level 133 mmol/L (136-145)
[2019-02-14 17:43] LABS: Magnesium 1.5 mg/dL (1.6-2.6)
[2019-02-14] MEDS: Nortriptyline 25 MG Capsule 50 MG PO (21:59)
[2019-02-14] MEDS: Insulin Lispro 100 UNIT/ML INSULN.PEN SC (22:00)
[2019-02-14] MEDS: Pregabalin 50 MG Capsule PO (22:08)
[2019-02-14 22:51] LABS: Bedside Glucose 189 mg/dL (70-110)
[2019-02-15 03:01] VITALS: BP 107/72; PULSE 98; RESP 20; TEMP 37.4; O2SAT 95
[2019-02-15] MEDS: 0.9% Saline Lock 10 ML Syringe IV (06:33)
[2019-02-15] MEDS: Metoclopramide 5 MG TABLET PO ×3 (06:40→17:11)
[2019-02-15] MEDS: Acetaminophen 325 MG Tablet 650 MG PO ×2 (06:41→12:29)
[2019-02-15 06:51] LABS: Bedside Glucose 106 mg/dL (70-110)
[2019-02-15 06:56] LABS: Anion Gap 8 (5-15); BUN 27 mg/dL (7-18); BUN/Creat Ratio 4.8 RATIO (10-20); Calcium,Total 7.6 mg/dL (8.5-10.1); Chloride 97 mmol/L (98-107); Creatinine, Serum 5.66 mg/dL (0.55-1.02); EST Glomerular Filtration Rate 9 mL/min (>60); Est Glom Filt Rate - Afr Amer 11 mL/min (>60); Estimated Creatinine Clearance 10.14 ml/min; Glucose 105 mg/dL (74-106); Potassium 3.6 mmol/L (3.5-5.1); Sodium Level 134 mmol/L (136-145)
[2019-02-15 07:31] LABS: Magnesium 1.8 mg/dL (1.6-2.6)
--- NOTE | 2019-02-15 07:37 | DIALYSIS ---
[facility] tx completed without problem. Pt tolerated tx well. Fluid balance -507ml. Effulent clear, pale yellow. no fibrin noted. Exit site dressing D&I. Catheter clamped and secured to patients abdomen. Stay safe cap applied. Pt has no c/o at this time. Report given to JULITO Dumont. Pt stable.
[2019-02-15 08:09] VITALS: BP 119/61; PULSE 108; RESP 18; TEMP 37.1; O2SAT 94
[2019-02-15] MEDS: Aspirin E.C. 81 MG Tablet PO (08:15)
--- NOTE | 2019-02-15 09:17 | PN_ITS ---
Patient Problems: Active and Suspected Problems (Last Reviewed 02/12/19 @ 20:40 by Virgil Murray DO) Gastroparesis (Acute) Subjective: Follow-up on gastroparesis: Patient seen and examined. She feels much better. No nausea or vomiting. Able to tolerate her diet. She has pain in both thighs of the thigh. Her skin is so dry but she has been using creams. Objective: Physical exam: General: Alert, Cooperative, - - Comfortable. HEENT: Atraumatic, Normocephalic Oral: Moist Mucosa, No Gingival or Mucosal Lesions/ Ulcerations Neck: No Nodes, Trachea Midline Lungs: Clear to auscultation, Normal air movement, No rhonchi, No wheeze, No rales Cardiovascular: Regular rate, Regular Rhythm, Normal S1, Normal S2, No murmurs Abdomen: Bowel Sounds Present, Soft, Non Tender, Non-Distended, No Hepato- splenomegaly Extremities: Bilateral anterolateral thigh erythema and scabbing or darkening of skin, tender to touch Skin: - - Patient has cannula intertrigo with her pannus and has some open wounds on the right lateral aspect of her pannus. Dry skin all over Musculoskeletal: No Tenderness to Palpation of Joints or Extremities, No Muscle Wasting Neurological: Coordination normal, - - No clonus Psych/Mental Status: Normal Affect, Appropriate Vitals/I&O's: Vital Signs Temp Pulse Resp BP Pulse Ox 98.8 F 108 H 18 119/61 94 02/15/19 08:09 02/15/19 08:09 02/15/19 08:09 02/15/19 08:09 02/15/19 08:09 Oxygen Delivery Method Room Air Weight: 117.991 kg Body Mass Index (BMI) 45.8 Finger Stick Blood Glucose 98 Intake and Output for Last 24 Hours 02/13/19 02/14/19 02/15/19 23:59 23:59 23:59 Intake Total 1829.5 / 1829.5 1528.34 / 1528.34 0 / 0 Output Total 1000 / 1000 Balance 829.5 / 829.5 1528.34 / 1528.34 0 / 0 Microbiology Past 72 Hours 02/13/19 13:40 Fluid - Peritoneal Gram Stain - Final 02/13/19 13:40 Fluid - Peritoneal Body Fluid Culture - Preliminary No growth-Final to follow Laboratory Results 02/14/19 09:30: Fluid Source OTHER, Fluid Color COLORLESS, Fluid Appearance CLEAR, Fluid WBC 0.854, Fluid RBC 6, Fluid Tot Cell Count 0.859 H, Fld Polynuclear WBCs # 0.728, Fld Polynuclear WBCs % 85.3, Fluid Mononuclear WBCs 0.126, Fld Mononuclear WBCs % 14.7, Fluid Neutrophils 77, Fluid Lymphocytes 6, Fluid Monocytes 17, Fl Pathologist Comment May follow, Fluid Comment 2 TNP 02/14/19 11:41: POC Glucose 124 H 02/14/19 16:34: POC Glucose 95 02/14/19 16:40: Sodium 133 L, Potassium 4.4, Chloride 101, Carbon Dioxide 24.0, Anion Gap 8, BUN 27 H, Creatinine 5.68 H, Estim Creat Clear Calc 10.10, Est GFR (MDRD) Af Amer 11 L, Est GFR (MDRD) Non-Af 9 L, BUN/Creatinine Ratio 4.8 L, Glucose 97, Calcium 7.7 L 02/14/19 16:40: Magnesium 1.5 L 02/14/19 21:58: POC Glucose 189 H 02/15/19 05:45: Sodium 134 L, Potassium 3.6, Chloride 97 L, Carbon Dioxide 29.0, Anion Gap 8, BUN 27 H, Creatinine 5.66 H, Estim Creat Clear Calc 10.14, Est GFR (MDRD) Af Amer 11 L, Est GFR (MDRD) Non-Af 9 L, BUN/Creatinine Ratio 4.8 L, Glucose 105, Calcium 7.6 L 02/15/19 05:45: Magnesium 1.8 02/15/19 06:38: POC Glucose 106 Current Medications Acetaminophen (Tylenol) 650 mg PO Q6H PRN PRN PRN Reason: Pain Score 1-3/Temp > 100.7 F Last Admin: 02/15/19 06:41 Dose: 650 mg Documented by: Aspirin (Ecotrin) 81 mg PO DAILY@0800 [facility] Last Admin: 02/15/19 08:15 Dose: 81 mg Documented by: Bupropion HCl (Wellbutrin Xl) 300 mg PO DAILY [facility] Last Admin: 02/14/19 14:49 Dose: 300 mg Documented by: Dextrose (D50w Syringe) 0 gm IV X1 PRN; Protocol PRN Reason: Hypoglycemia Emollient Ointment (Eucerin Intensive Repair) 1 applic TOPICAL 4X/DAY PRN PRN; Protocol PRN Reason: DRY SKIN Glucagon () 1 mg IM .X1 PRN PRN Reason: Hypoglycemia Guaifenesin (Robitussin) 20 ml PO Q4H PRN PRN PRN Reason: COUGH Last Admin: 02/12/19 23:09 Dose: 20 ml Documented by: Insulin Human Lispro (Humalog Kwikpen (Bkc)) 0 unit SC ACHS [facility]; Protocol Last Admin: 02/15/19 06:38 Dose: Not Given Documented by: Melatonin (Melatonin) 3 mg PO QHS PRN PRN PRN Reason: INSOMNIA Last Admin: 02/12/19 23:07 Dose: 3 mg Documented by: Metoclopramide HCl (Metoclopramide Hcl) 5 mg PO TIDAC [facility] Last Admin: 02/15/19 06:40 Dose: 5 mg Documented by: Nortriptyline HCl (Pamelor) 50 mg PO QHS [facility] Last Admin: 02/14/19 21:59 Dose: 50 mg Documented by: Nutritional Formula (Lactose Free) (Ensure Clear) 120 ml PO TIDCM [facility] Last Admin: 02/15/19 08:13 Dose: Not Given Documented by: Nystatin (Mycostatin Powder) 1 applic TOPICAL BID [facility]; Protocol Last Admin: 02/14/19 21:59 Dose: 1 applicatio Documented by: Oxycodone HCl (Oxyir) 10 mg PO Q4H PRN PRN PRN Reason: Pain Score 6-10/10 Last Admin: 02/14/19 18:45 Dose: 10 mg Documented by: Pregabalin (Lyrica) 50 mg PO BID [facility] Last Admin: 02/14/19 22:08 Dose: 50 mg Documented by: Sodium Chloride () 10 - 40 ml IV UD PRN PRN Reason: SALINE FLUSH Last Admin: 02/15/19 06:33 Dose: 10 ml Documented by: Venlafaxine HCl (Effexor Xr) 150 mg PO DAILY [facility] Last Admin: 02/14/19 14:49 Dose: 150 mg Documented by: STROKE Vital Signs/Narrative: Vital Signs Temp Pulse Resp BP Pulse Ox 02/15/19 08:09 98.8 F 108 H 18 119/61 94 Medical Necessity - Tobacco Use Smoking Status: Never smoker Assessment/Plan All Active Problems (Last Reviewed 02/12/19 @ 20:40 by Virgil Murray DO) Lower extremity weakness (Acute) Generalized weakness (Acute) Gastroparesis (Acute) Syncope (Acute) 1.Acute exacerbation of gastroparesis, status post gastric emptying study Improving, on Reglan 5 mg p.o. 3 times daily No extrapyramidal symptoms noted 2. 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 Hypokalemia, replaced, recheck in am 4. Hypomagnesemia, Mg improved to 1.6, recheck in am 5. End-stage renal disease, on peritoneal dialysis, nephrology following 6. Diabetes mellitus type 2, blood sugars are controlled, on insulin sliding scale 7. DVT prophylaxis-ambulation recommended Code Visit Inpatient E&M: 02400 Subs Hosp L2
[2019-02-15] MEDS: Venlafaxine XR 150 MG Capsule PO (10:02)
[2019-02-15] MEDS: Nystatin Powder 15gm Bottle 1 APPLIC TOPICAL ×2 (10:02→21:30)
[2019-02-15] MEDS: buPROPion (XL) 300 MG TABLET.XL PO (10:02)
[2019-02-15] MEDS: Pregabalin 50 MG Capsule PO ×2 (10:04→21:34)
--- NOTE | 2019-02-15 12:23 | PCM.CONS.GEN ---
Reason for Consult Date of Consultation: 02/15/19 Reason for Consultation: Necrotic wounds bilateral thighs in patient with renal failure and dialysis. REFERRING PHYSICIAN: Dr. Horner. OPERATIONS MANAGER ASSISTANT: Dr. Cuevas. History of Present Illness: The patient is a 43 year old F who was recently admitted with a several day history of intractable nausea and vomiting and diarrhea. She has a history of diabetes mellitus and end stage renal disease on peritoneal dialysis. Since last week she started developing some areas of black eschar and necrotic skin on her bilateral thighs, worse on the left. They are painful when bumped. It was noted over the last week that these necrotic areas are worsening and enlarging. I was asked to evaluate this patient for surgical options for treatment. Past Medical History Past Medical History (Chronic Problems): Chronic Problems (Last Reviewed 02/12/19 @ 20:40 by Virgil Murray DO) Skin necrosis (Chronic) bilateral thighs Patient on peritoneal dialysis (Chronic) ESRD (end stage renal disease) (Chronic) Debility (Chronic) Orthostatic hypotension (Chronic) Chronic renal failure, stage 4 (severe) (Chronic) Morbid obesity (Chronic) HTN (hypertension) (Chronic) Bilateral hydronephrosis (Chronic) Iron deficiency anemia (Chronic) Type II diabetes mellitus (Chronic) Coronary artery disease (Chronic) Chronic low back pain (Chronic) Hydroureter (Chronic) Bladder outlet obstruction (Chronic) Medical History: Medical History (Last Reviewed 02/12/19 @ 20:40 by Virgil Murray DO) Chronic renal failure, stage 4 (severe) (Chronic) N18.4 Anemia D64.9 Anxiety and depression F41.8 Back problem M53.9 Carpal tunnel syndrome G56.00 Diabetes type 2, controlled E11.9 H/O nephrolithotomy with removal of calculi Z98.890, Z87.442 H/O transfusion of whole blood Z92.89 Headache R51 Heart disease I51.9 Hives L50.9 Kidney disease N28.9 Kidney failure N19 Kidney stone N20.0 Neuropathy G62.9 Recurrent infections B99.9 Seasonal allergies J30.2 UTI (urinary tract infection) N39.0 Vitamin deficiency E56.9 HTN (hypertension) I10 Allergies ciprofloxacin [From Cipro] Adverse Reaction (Verified 12/26/18 00:36) Vomiting contrast dye Allergy (Severe, Uncoded 12/26/18 00:36) Anaphylaxis Current Medications Acetaminophen (Tylenol) 650 mg PO Q6H PRN PRN PRN Reason: Pain Score 1-3/Temp > 100.7 F Last Admin: 02/15/19 06:41 Dose: 650 mg Documented by: Aspirin (Ecotrin) 81 mg PO DAILY@0800 [facility] Last Admin: 02/15/19 08:15 Dose: 81 mg Documented by: Bupropion HCl (Wellbutrin Xl) 300 mg PO DAILY [facility] Last Admin: 02/15/19 10:02 Dose: 300 mg Documented by: Dextrose (D50w Syringe) 0 gm IV X1 PRN; Protocol PRN Reason: Hypoglycemia Emollient Ointment (Eucerin Intensive Repair) 1 applic TOPICAL 4X/DAY PRN PRN; Protocol PRN Reason: DRY SKIN Glucagon () 1 mg IM .X1 PRN PRN Reason: Hypoglycemia Guaifenesin (Robitussin) 20 ml PO Q4H PRN PRN PRN Reason: COUGH Last Admin: 02/12/19 23:09 Dose: 20 ml Documented by: Insulin Human Lispro (Humalog Kwikpen (Bkc)) 0 unit SC ACHS [facility]; Protocol Last Admin: 02/15/19 12:22 Dose: Not Given Documented by: Lactic Acid (Lac-Hydrin, Amlactin) 1 applic TOPICAL TID [facility]; Protocol Melatonin (Melatonin) 3 mg PO QHS PRN PRN PRN Reason: INSOMNIA Last Admin: 02/12/19 23:07 Dose: 3 mg Documented by: Metoclopramide HCl (Metoclopramide Hcl) 5 mg PO TIDAC [facility] Last Admin: 02/15/19 12:17 Dose: 5 mg Documented by: Nortriptyline HCl (Pamelor) 50 mg PO QHS [facility] Last Admin: 02/14/19 21:59 Dose: 50 mg Documented by: Nutritional Formula (Lactose Free) (Ensure Clear) 120 ml PO TIDCM [facility] Last Admin: 02/15/19 12:17 Dose: Not Given Documented by: Nystatin (Mycostatin Powder) 1 applic TOPICAL BID [facility]; Protocol Last Admin: 02/15/19 10:02 Dose: 1 applicatio Documented by: Oxycodone HCl (Oxyir) 10 mg PO Q4H PRN PRN PRN Reason: Pain Score 6-10/10 Last Admin: 02/14/19 18:45 Dose: 10 mg Documented by: Pregabalin (Lyrica) 50 mg PO BID [facility] Last Admin: 02/15/19 10:04 Dose: 50 mg Documented by: Sodium Chloride () 10 - 40 ml IV UD PRN PRN Reason: SALINE FLUSH Last Admin: 02/15/19 06:33 Dose: 10 ml Documented by: Venlafaxine HCl (Effexor Xr) 150 mg PO DAILY [facility] Last Admin: 02/15/19 10:02 Dose: 150 mg Documented by: Home Medications: Ambulatory Orders Medication Instructions Recorded Ergocalciferol [Vitamin D] 50,000 unit PO WE 04/18/17 Venlafaxine XR [Effexor Xr] 150 mg PO DAILY 02/28/18 Aspirin E.C. [Ecotrin] 81 mg PO DAILY@0800 07/15/18 Nortriptyline HCl [Pamelor] 50 mg PO QHS 07/15/18 Pregabalin [Lyrica] 100 mg PO BID 07/15/18 Bupropion HCl [Bupropion Xl] 300 mg PO DAILY 09/22/18 cycloBENZAPRine HCl [Flexeril] 10 mg PO TID PRN #20 tab 12/26/18 Ondansetron [Zofran Odt] 4 mg PO Q8H PRN PRN #10 tab 02/12/19 Oxycodone HCl/Acetaminophen 1 ea PO Q6H PRN PRN 02/12/19 [Percocet 5-325 mg Tablet] Surgical History: Surgical History (Last Reviewed 02/12/19 @ 20:40 by Virgil Murray DO) H/O heart artery stent Z95.5 History of carpal tunnel surgery Z92.89 Presence of surgically created arteriovenous shunt for hemodialysis Z99.2 Surgical History: - - PCI, bilateral ureteral stent placements and removal, AVF creation, tunnel intervention, port placement. 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 Paternal History Items: Unknown - Patient was adopted and she does not know her family of origin to be able to provide any family medical history. Review of Systems Comment: Constitutional: Reports: Anorexia, Malaise, Weakness. Denies: Chills, Fever. Eyes: Denies: Blurred vision, Double vision. HEENT: Denies: Head Aches, Sinus Congestion, Sinus Drainage. Cardiovascular: Denies: Chest Pain, Palpitations. Respiratory: Reports: Cough. Denies: Sputum production. Gastrointestinal: Reports: Diarrhea, Nausea, Vomiting. Denies: Abdominal Pain. Genitourinary: Denies: Dysuria, Hematuria. Musculoskeletal: Reports: Arm Pain, Leg Pain. Skin: Reports: Dryness, - - Sores underneath the right side of her pannus. Patient also has a painful lesion on her right anterior leg. Neurological: Reports: Numbness. Denies: Focal weakness, Tingling. Psychiatric: Denies: Anxiety, Depression. Hematologic/ Lymphatic: Reports: Hx of blood clot. Denies: Easy Bruising, Easy Bleeding Patient Problems: Active and Suspected Problems (Last Reviewed 02/12/19 @ 20:40 by Virgil Murray DO) Gastroparesis (Acute) - Physical Exam Vitals/I&O's: General: Alert, Cooperative, - - Comfortable. HEENT: PERRL. EOMI. Oral: Moist Mucosa. Neck: supple nontender. No cervical adenopathy. Lungs: Clear to auscultation. Cardiovascular: Regular rate, Regular Rhythm. Abdomen: Soft, Non-Distended. Extremities: No edema, No Calf Tenderness Skin: - - Patient has abdominal wall skin crease intertrigo with her pannus. Has some dry scabbing on her abdominal wall. She states she had used a heating pad recently when the dry scabs formed. There is the presence of a peritoneal dialysis catheter. Patient also has painful necrotic wounds bilateral thighs, worse on the left. No surrounding erythema. Patient has dry skin throughout as well. There is tenderness to palpation. Could not express any purulent drainage. The necrotic skin is a stable dry eschar. On the left proximal lateral thigh the eschar measures 14 cm. On the right proximal anterolateral thigh the eschar measures 19 cm. Neurological: CN II - XII grossly intact. Psych/Mental Status: Normal Affect, Appropriate Vital Signs Temp Pulse Resp BP Pulse Ox 98.8 F 108 H 18 119/61 94 02/15/19 08:09 02/15/19 08:09 02/15/19 08:09 02/15/19 08:09 02/15/19 08:09 Oxygen Delivery Method Room Air Weight: 260 lb 2 oz Body Mass Index (BMI) 45.8 Finger Stick Blood Glucose 98 Intake and Output for Last 24 Hours 02/13/19 02/14/19 02/15/19 23:59 23:59 23:59 Intake Total 1829.5 / 1829.5 1528.34 / 1528.34 0 / 0 Output Total 1000 / 1000 Balance 829.5 / 829.5 1528.34 / 1528.34 0 / 0 Microbiology Past 72 Hours 02/13/19 13:40 Fluid - Peritoneal Gram Stain - Final 02/13/19 13:40 Fluid - Peritoneal Body Fluid Culture - Preliminary No growth-Final to follow Laboratory Results 02/14/19 16:34: POC Glucose 95 02/14/19 16:40: Sodium 133 L, Potassium 4.4, Chloride 101, Carbon Dioxide 24.0, Anion Gap 8, BUN 27 H, Creatinine 5.68 H, Estim Creat Clear Calc 10.10, Est GFR (MDRD) Af Amer 11 L, Est GFR (MDRD) Non-Af 9 L, BUN/Creatinine Ratio 4.8 L, Glucose 97, Calcium 7.7 L 02/14/19 16:40: Magnesium 1.5 L 02/14/19 21:58: POC Glucose 189 H 02/15/19 05:45: Sodium 134 L, Potassium 3.6, Chloride 97 L, Carbon Dioxide 29.0, Anion Gap 8, BUN 27 H, Creatinine 5.66 H, Estim Creat Clear Calc 10.14, Est GFR (MDRD) Af Amer 11 L, Est GFR (MDRD) Non-Af 9 L, BUN/Creatinine Ratio 4.8 L, Glucose 105, Calcium 7.6 L 02/15/19 05:45: Magnesium 1.8 02/15/19 06:38: POC Glucose 106 Current Medications Acetaminophen (Tylenol) 650 mg PO Q6H PRN PRN PRN Reason: Pain Score 1-3/Temp > 100.7 F Last Admin: 02/15/19 06:41 Dose: 650 mg Documented by: Aspirin (Ecotrin) 81 mg PO DAILY@0800 [facility] Last Admin: 02/15/19 08:15 Dose: 81 mg Documented by: Bupropion HCl (Wellbutrin Xl) 300 mg PO DAILY [facility] Last Admin: 02/15/19 10:02 Dose: 300 mg Documented by: Dextrose (D50w Syringe) 0 gm IV X1 PRN; Protocol PRN Reason: Hypoglycemia Emollient Ointment (Eucerin Intensive Repair) 1 applic TOPICAL 4X/DAY PRN PRN; Protocol PRN Reason: DRY SKIN Glucagon () 1 mg IM .X1 PRN PRN Reason: Hypoglycemia Guaifenesin (Robitussin) 20 ml PO Q4H PRN PRN PRN Reason: COUGH Last Admin: 02/12/19 23:09 Dose: 20 ml Documented by: Insulin Human Lispro (Humalog Kwikpen (Bkc)) 0 unit SC [facility]; Protocol Last Admin: 02/15/19 12:22 Dose: Not Given Documented by: Lactic Acid (Lac-Hydrin, Amlactin) 1 applic TOPICAL TID [facility]; Protocol Melatonin (Melatonin) 3 mg PO QHS PRN PRN PRN Reason: INSOMNIA Last Admin: 02/12/19 23:07 Dose: 3 mg Documented by: Metoclopramide HCl (Metoclopramide Hcl) 5 mg PO TIDAC [facility] Last Admin: 02/15/19 12:17 Dose: 5 mg Documented by: Nortriptyline HCl (Pamelor) 50 mg PO QHS [facility] Last Admin: 02/14/19 21:59 Dose: 50 mg Documented by: Nutritional Formula (Lactose Free) (Ensure Clear) 120 ml PO TIDCM [facility] Last Admin: 02/15/19 12:17 Dose: Not Given Documented by: Nystatin (Mycostatin Powder) 1 applic TOPICAL BID [facility]; Protocol Last Admin: 02/15/19 10:02 Dose: 1 applicatio Documented by: Oxycodone HCl (Oxyir) 10 mg PO Q4H PRN PRN PRN Reason: Pain Score 6-10/10 Last Admin: 02/14/19 18:45 Dose: 10 mg Documented by: Pregabalin (Lyrica) 50 mg PO BID [facility] Last Admin: 02/15/19 10:04 Dose: 50 mg Documented by: Sodium Chloride () 10 - 40 ml IV UD PRN PRN Reason: SALINE FLUSH Last Admin: 02/15/19 06:33 Dose: 10 ml Documented by: Venlafaxine HCl (Effexor Xr) 150 mg PO DAILY [facility] Last Admin: 02/15/19 10:02 Dose: 150 mg Documented by: Assessment/Plan All Active Problems (Last Reviewed 02/12/19 @ 20:40 by Virgil Murray DO) Calciphylaxis (Acute) Lower extremity weakness (Acute) Generalized weakness (Acute) Gastroparesis (Acute) Syncope (Acute) 1. Necrotic wounds bilateral thighs, probably infected. 2. End stage renal disease on dialysis. 3. Peritoneal dialysis. 4. Painful calciphylaxis. 5. Diabetes mellitus. Patient has end stage renal disease on peritoneal dialysis. She has started developing areas of skin necrosis on her bilateral thighs, worse on the left. There is tenderness to palpation. With her history of diabetes mellitus and ESRD with dialysis, she is at increased risk of calciphylaxis which leads to painful fat necrosis and skin necrosis. These areas of enlarging skin necrosis on her bilateral thighs need excision to minimize infection in the future which can be life threatening. Will send tissue to Pathology for analysis to rule out carcinoma. Will also send tissue to Microbiology for culture. A positive culture will necessitate antibiotic therapy. Postop will begin wound care with the V[facility]. Will schedule the operative intervention tomorrow for surgical preparation bilateral thighs with incision and drainage and excisional debridement necrotic infected wounds. Will begin antibiotics with Levaquin since infections can be polymicrobial. Anticipate increased metabolic demands from the wounds and the infection. Will check a Prealbumin and encourage nutritional supplementation with protein to help the healing process. In renal failure patients on dialysis, when necrotic skin infections start developing, calciphylaxis can be present. Sometimes this is progressive in other areas on the extremities and the trunk which can also develop necrotic skin infections. Because of the severe pain present in these wounds and if multiple wounds develop, these patients sometimes need to go to a Burn Center for more aggressive wound care with a whirlpool and the need for much higher doses of IV analgesia. After discharge can followup at the Wound Center. Patient was informed of the risks and complications of the procedure including alternatives to surgery. These were discussed with the patient personally. Patient voices understanding and wishes to proceed. Code Visit Inpatient E&M: 62432 Init Hosp L2 - ICD-10 - I96, N18.6, Z99.2, E83.59, E11.9
[2019-02-15 12:26] LABS: Bedside Glucose 93 mg/dL (70-110)
[2019-02-15] MEDS: Ammonium Lactate 225 gm Bottle 1 APPLIC TOPICAL ×2 (12:32→21:30)
[2019-02-15 14:53] VITALS: BP 131/68; PULSE 93; RESP 16; TEMP 36.7; O2SAT 99
[2019-02-15 17:00] LABS: Bedside Glucose 124 mg/dL (70-110)
--- NOTE | 2019-02-15 18:03 | DIALYSIS ---
[facility] tx initiated without problem using aseptic technique. Cleaned exit site. Site benign. New Dressing applied and secured. Initial drain and fill completed. Effulent yellow, cloudy. No fibrin noted. Pt has no c/o at this time. Report given to JULITO Dumont. Pt stable
[2019-02-15] MEDS: levoFLOXacin IV 750 MG/150 ML BAG 100 MG IV (18:40)
[2019-02-15] MEDS: oxyCODONE 5 MG Tablet 10 MG PO (18:40)
[2019-02-15 20:42] VITALS: BP 140/85; PULSE 89; RESP 20; TEMP 36.8; O2SAT 95
[2019-02-15] MEDS: Insulin Lispro 100 UNIT/ML INSULN.PEN SC (21:29)
[2019-02-15] MEDS: Nortriptyline 25 MG Capsule 50 MG PO (21:31)
[2019-02-15 21:36] LABS: Bedside Glucose 190 mg/dL (70-110)
[2019-02-16] VITALS (13 sets, daily range): BP systolic 101–149; BP diastolic 59–99; PULSE 97–112; RESP 16–20; TEMP 36.5–37.5; O2SAT 94–100; BMI 48.4
[2019-02-16 06:14] LABS: Absolute Lymphocyte Count 0.79 X10^3/uL (0.83-4.51); Absolute Neutrophil Count 8.3 X10^3/uL (2.0-7.7); Basophil# 0.02 X10^3/uL; Basophil% 0.2 % (0-1); Eosinophils% 1.9 % (0-5); Hematocrit 29.1 % (37-47); Hemoglobin 9.1 g/dL (12.0-15.0); Lymphocyte # 0.79 X10^3/ul (4.0); Lymphocyte % 7.5 % (19-41); Mean Corp Hgb Conc 31.3 g/dL (32-36); Mean Corpuscular Hgb 24.3 pg (27.0-32.0); Mean Corpuscular Volume 77.6 fL (81-99); Mean Platelet Vol. 8.8 fl (6.2-12.0); Monocyte# 1.06 X10^3/uL; Monocyte% 10.1 % (0-10); NRBC Flagged by Analyzer 0 % (0-5); Neutrophil # 8.34 X10^3/uL (2.7-7.7); Neutrophil % 79.3 % (47-70); Platelet Count 230 K/mm3 (150-450); RBC Distribution Width CV 17.4 % (11.6-14.6); RBC Distribution Width SD 49.5 fl (35.1-43.9); Red Blood Count 3.75 M/mm3 (4.2-5.4); White Blood Count 10.5 K/mm3 (4.4-11.0)
[2019-02-16 06:37] LABS: Albumin, Serum 1.5 g/dL (3.2-5.0); BUN 30 mg/dL (7-18); BUN/Creat Ratio 5.2 RATIO (10-20); Calcium,Total 7.7 mg/dL (8.5-10.1); Chloride 96 mmol/L (98-107); EST Glomerular Filtration Rate 8 mL/min (>60); Est Glom Filt Rate - Afr Amer 10 mL/min (>60); Estimated Creatinine Clearance 9.89 ml/min; Glucose 103 mg/dL (74-106); Phosphorus 3.8 mg/dL (2.5-4.9); Potassium 3.8 mmol/L (3.5-5.1); Sodium Level 131 mmol/L (136-145)
[2019-02-16] MEDS: Ammonium Lactate 225 gm Bottle 1 APPLIC TOPICAL ×3 (07:00→22:18)
[2019-02-16] MEDS: 0.9% Saline Lock 10 ML Syringe IV (07:01)
[2019-02-16 07:11] LABS: Bedside Glucose 115 mg/dL (70-110)
--- NOTE | 2019-02-16 07:43 | DIALYSIS ---
[facility] tx completed upon arrival to bedside. Pt denies any complications overnight with PD tx. Tx discontinued using aseptic technique without complications. Catheter capped, clamped, and secured to patient's abdomen. Fluid retained 1096ml. Vitals stable post tx. Eflluent clear straw yellow without fibrin. Verbal report given to JULITO Loredo post tx.
--- NOTE | 2019-02-16 08:15 | NURSING ---
skin photo: left thigh
--- NOTE | 2019-02-16 08:16 | NURSING ---
skin photo: right thigh
--- NOTE | 2019-02-16 08:26 | NURSING ---
In to reassess bilateral thigh discoloration. there is a deeper discoloration noted to the left thigh. appears less painful today. was able to push on area. no surrounding erythema. see photos. there is some thin eschar noted to the right thigh. This appears about the same as last week. also no erythema noted and less pain today. had assisted student nurse in taking patient into the bathroom. patient very unsteady today. will talk with hospitalist about getting order for physical therapy to assist with strengthening. pt was much more steady last week. Dr Cuevas was consulted by Dr Odonnell this weekend for possible calciphylaxis to bilateral thighs. Dr Cuevas has patient on surgery schedule for bilateral thigh debridements. pt will most likely need jail placement at discharge.
--- NOTE | 2019-02-16 10:13 | PCM.PN.HOSP ---
Patient Problems: Active and Suspected Problems (Last Reviewed 02/12/19 @ 20:40 by Virgil Murray DO) Gastroparesis (Acute) Subjective: Patient seen and examined. She has no complaints today and feels well. Nausea and vomiting have resolved. Review of systems otherwise negative. Labs and vitals reviewed. She is due for surgery but Dr. Cuevas today on account of necrotic ulcers on anterior thighs. Vitals/I&O's: Vital Signs Temp Pulse Resp BP Pulse Ox 99.5 F H 98 18 127/59 H 96 02/16/19 07:51 02/16/19 09:21 02/16/19 09:21 02/16/19 07:51 02/16/19 07:51 Oxygen Delivery Method Room Air Weight: 263 lb 0.183 oz Body Mass Index (BMI) 48.4 Finger Stick Blood Glucose 98 Intake and Output for Last 24 Hours 02/14/19 02/15/19 02/16/19 23:59 23:59 23:59 Intake Total 1528.34 / 1528.34 971.25 / 1471.25 500 / 500 Balance 1528.34 / 1528.34 971.25 / 1471.25 500 / 500 General: Alert, Oriented x3, Cooperative, No apparent distress HEENT: Atraumatic, PERRLA, EOMI, Normocephalic Oral: Moist Mucosa Neck: Supple, No JVD, Negative Carotid Bruits Lungs: Clear to auscultation, Normal air movement, No rhonchi, No wheeze, No rales Cardiovascular: Regular rate, Regular Rhythm, Normal S1, Normal S2, No murmurs Abdomen: Bowel Sounds Present, Soft, Non Tender, Non-Distended, No Hepato-splenomegaly Extremities: No clubbing, No cyanosis, No edema, Capillary Refill Less than 3 Seconds Skin: - - Hyperpigmented firm areas on anterior thighs, with superficial ulceration Musculoskeletal: No Tenderness to Palpation of Joints or Extremities Lymphatic: No Cervical, Supraclavicular, or Inguinal Adenopathy Neurological: Cranial nerves II-XII grossly intact, Neuro grossly intact, Motor Exam 5/5 strength throughout Psych/Mental Status: Normal Affect, Appropriate, Alert and oriented to time, place, person, mood and affect Microbiology Past 72 Hours 02/13/19 13:40 Fluid - Peritoneal Gram Stain - Final 02/13/19 13:40 Fluid - Peritoneal Body Fluid Culture - Final Culture exhibits no growth. 02/13/19 13:40 Fluid - Peritoneal Anaerobic Culture - Preliminary No growth in 48 hours. Laboratory Results 02/15/19 12:21: POC Glucose 93 02/15/19 16:55: POC Glucose 124 H 02/15/19 21:27: POC Glucose 190 H 02/16/19 05:54: Sodium 131 L, Potassium 3.8, Chloride 96 L, Carbon Dioxide 25.0, BUN 30 H, Creatinine 5.80 H, Estim Creat Clear Calc 9.89, Est GFR (MDRD) Af Amer 10 L, Est GFR (MDRD) Non-Af 8 L, BUN/Creatinine Ratio 5.2 L, Glucose 103, Calcium 7.7 L, Phosphorus 3.8, Albumin 1.5 L 02/16/19 05:54: WBC 10.5, RBC 3.75 L, Hgb 9.1 L, Hct 29.1 L, MCV 77.6 L, MCH 24.3 L, MCHC 31.3 L, RDW Std Deviation 49.5 H, RDW Coeff of Lu 17.4 H, Plt Count 230, MPV 8.8, Immature Gran % (Auto) 1.000 H, Neut % (Auto) 79.3 H, Lymph % (Auto) 7.5 L, [place] % (Auto) 10.1 H, Eos % (Auto) 1.9, Baso % (Auto) 0.2, Absolute Neuts (auto) 8.3 H, Absolute Lymphs (auto) 0.79 L, Nucleated RBC % 0 02/16/19 06:54: POC Glucose 115 H Diagnostic Data Chest X-Ray 02/12/19 16:42 IMPRESSION: No acute thoracic pathology. Electronically Signed: Jovi Velásquez, at 17:04 EST Tel , Service support , Gastric Emptying Nuclear Medicine 02/12/19 22:25 IMPRESSION: 1. ABNORMAL 99m Tc sulfur colloid semi-solid phase (oatmeal) gastric emptying imaging examination. A. There is delayed semi-solid phase gastric emptying compared to normal controls with maintained first order kinetics throughout all components of the examination. (Indu pierre al, J Nucl Med Tech 38: 186, 2009). B. Compared to the previous gastric emptying examination dated 03/04/2018, there is current abnormal semisolid phase emptying as described above. Electronically Signed: Alhaji Parrish, at 12:49 EST Tel , Service support , Current Medications Acetaminophen (Tylenol) 650 mg PO Q6H PRN PRN PRN Reason: Pain Score 1-3/Temp > 100.7 F Last Admin: 02/15/19 12:29 Dose: 650 mg Documented by: Aspirin (Ecotrin) 81 mg PO DAILY@0800 [facility] Last Admin: 02/15/19 08:15 Dose: 81 mg Documented by: Bupropion HCl (Wellbutrin Xl) 300 mg PO DAILY [facility] Last Admin: 02/15/19 10:02 Dose: 300 mg Documented by: Dextrose (D50w Syringe) 0 gm IV X1 PRN; Protocol PRN Reason: Hypoglycemia Emollient Ointment (Eucerin Intensive Repair) 1 applic TOPICAL 4X/DAY PRN PRN; Protocol PRN Reason: DRY SKIN Glucagon () 1 mg IM .X1 PRN PRN Reason: Hypoglycemia Guaifenesin (Robitussin) 20 ml PO Q4H PRN PRN PRN Reason: COUGH Last Admin: 02/12/19 23:09 Dose: 20 ml Documented by: Levofloxacin (Levaquin Iv) 500 mg in 100 mls @ 100 mls/hr IV Q48 [facility] Sodium Chloride () 250 mls @ 15 mls/hr IV .N35X10K PRN PRN Reason: Saline Flush Last Infusion: 02/15/19 23:00 Dose: 0 mls/hr Documented by: Insulin Human Lispro (Humalog Kwikpen (Bkc)) 0 unit SC ACHS [facility]; Protocol Last Admin: 02/16/19 07:00 Dose: Not Given Documented by: Lactic Acid (Lac-Hydrin, Amlactin) 1 applic TOPICAL TID [facility]; Protocol Last Admin: 02/16/19 07:00 Dose: 1 applicatio Documented by: Melatonin (Melatonin) 3 mg PO QHS PRN PRN PRN Reason: INSOMNIA Last Admin: 02/12/19 23:07 Dose: 3 mg Documented by: Metoclopramide HCl (Metoclopramide Hcl) 5 mg PO TIDAC [facility] Last Admin: 02/16/19 07:01 Dose: Not Given Documented by: Nortriptyline HCl (Pamelor) 50 mg PO QHS [facility] Last Admin: 02/15/19 21:31 Dose: 50 mg Documented by: Nutritional Formula (Lactose Free) (Ensure Clear) 120 ml PO TIDCM [facility] Last Admin: 02/15/19 17:11 Dose: Not Given Documented by: Nystatin (Mycostatin Powder) 1 applic TOPICAL BID [facility]; Protocol Last Admin: 02/15/19 21:30 Dose: 1 applicatio Documented by: Oxycodone HCl (Oxyir) 5 mg PO Q4H PRN PRN PRN Reason: Pain Score 4-10/10 Pregabalin (Lyrica) 50 mg PO BID [facility] Last Admin: 02/15/19 21:34 Dose: 50 mg Documented by: Sodium Chloride () 10 - 40 ml IV UD PRN PRN Reason: SALINE FLUSH Last Admin: 02/16/19 07:01 Dose: 10 ml Documented by: Venlafaxine HCl (Effexor Xr) 150 mg PO DAILY [facility] Last Admin: 02/15/19 10:02 Dose: 150 mg Documented by: STROKE Vital Signs/Narrative: Vital Signs Temp Pulse Resp BP Pulse Ox 02/16/19 09:21 98 18 02/16/19 07:51 99.5 F H 100 16 127/59 H 96 Medical Necessity - Tobacco Use Smoking Status: Never smoker Assessment/Plan All Active Problems (Last Reviewed 02/12/19 @ 20:40 by Virgil Murray DO) Calciphylaxis (Acute) Lower extremity weakness (Acute) Generalized weakness (Acute) Gastroparesis (Acute) Syncope (Acute) 1. Acute gastroparesis: resolved. on reglan 5mg tid 2. Bilateral thigh skin necrosis plastic surgery on board for debridement today there is suspicion for calciphylaxis as well in light of ESRD on levaquin 3. Hypokalemia: K is 3.8. Resolved 4. Hypomagnesemia: Resolved. 5. ESRD: On peritoneal dialysis. Unable to have hemodialysis on account of steal syndrome with AV fistula. Nephrology on board 6. Type 2 diabetes mellitus: Diet-controlled: On insulin sliding scale. Accu-Cheks before meals at bedtime. 7. Anxiety and depression: On Effexor nortriptyline as well as wellbutrin DVT Prophylaxis: will start Lovenox. Code Visit Inpatient E&M: 94225 Subs Hosp L2
[2019-02-16 10:55] LABS: Pathologist Comment/Body Fluid Reviewed
--- NOTE | 2019-02-16 10:55 | PCM.PN.REN ---
Patient Problems: Active and Suspected Problems (Last Reviewed 02/12/19 @ 20:40 by Virgil Murray DO) Gastroparesis (Acute) Subjective: denies NVD. Scheduled for debridement of thigh wounds. - Physical Exam Vitals/I&O's: Vital Signs Temp Pulse Resp BP Pulse Ox 99.5 F H 98 18 127/59 H 96 02/16/19 07:51 02/16/19 09:21 02/16/19 09:21 02/16/19 07:51 02/16/19 07:51 Oxygen Delivery Method Room Air Weight: 119.3 kg Body Mass Index (BMI) 48.4 Finger Stick Blood Glucose 98 Intake and Output for Last 24 Hours 02/14/19 02/15/19 02/16/19 23:59 23:59 23:59 Intake Total 1528.34 / 1528.34 971.25 / 1471.25 500 / 500 Balance 1528.34 / 1528.34 971.25 / 1471.25 500 / 500 General: Alert, Oriented x3, Cooperative Lungs: Clear to auscultation Cardiovascular: Regular rate Abdomen: Bowel Sounds Present, Soft, Non Tender, Non-Distended, Obese Extremities: No edema Skin: Ulcer/ Wound - skin necrosis bilateral lateral thighs Microbiology Past 72 Hours 02/13/19 13:40 Fluid - Peritoneal Gram Stain - Final 02/13/19 13:40 Fluid - Peritoneal Body Fluid Culture - Final Culture exhibits no growth. 02/13/19 13:40 Fluid - Peritoneal Anaerobic Culture - Preliminary No growth in 48 hours. Laboratory Results 02/15/19 12:21: POC Glucose 93 02/15/19 16:55: POC Glucose 124 H 02/15/19 21:27: POC Glucose 190 H 02/16/19 05:54: Sodium 131 L, Potassium 3.8, Chloride 96 L, Carbon Dioxide 25.0, BUN 30 H, Creatinine 5.80 H, Estim Creat Clear Calc 9.89, Est GFR (MDRD) Af Amer 10 L, Est GFR (MDRD) Non-Af 8 L, BUN/Creatinine Ratio 5.2 L, Glucose 103, Calcium 7.7 L, Phosphorus 3.8, Albumin 1.5 L 02/16/19 05:54: WBC 10.5, RBC 3.75 L, Hgb 9.1 L, Hct 29.1 L, MCV 77.6 L, MCH 24.3 L, MCHC 31.3 L, RDW Std Deviation 49.5 H, RDW Coeff of Lu 17.4 H, Plt Count 230, MPV 8.8, Immature Gran % (Auto) 1.000 H, Neut % (Auto) 79.3 H, Lymph % (Auto) 7.5 L, [place] % (Auto) 10.1 H, Eos % (Auto) 1.9, Baso % (Auto) 0.2, Absolute Neuts (auto) 8.3 H, Absolute Lymphs (auto) 0.79 L, Nucleated RBC % 0 02/16/19 06:54: POC Glucose 115 H Current Medications Acetaminophen (Tylenol) 650 mg PO Q6H PRN PRN PRN Reason: Pain Score 1-3/Temp > 100.7 F Last Admin: 02/15/19 12:29 Dose: 650 mg Documented by: Aspirin (Ecotrin) 81 mg PO DAILY@0800 [facility] Last Admin: 02/16/19 10:23 Dose: Not Given Documented by: Bupropion HCl (Wellbutrin Xl) 300 mg PO DAILY [facility] Last Admin: 02/15/19 10:02 Dose: 300 mg Documented by: Dextrose (D50w Syringe) 0 gm IV X1 PRN; Protocol PRN Reason: Hypoglycemia Emollient Ointment (Eucerin Intensive Repair) 1 applic TOPICAL 4X/DAY PRN PRN; Protocol PRN Reason: DRY SKIN Glucagon () 1 mg IM .X1 PRN PRN Reason: Hypoglycemia Guaifenesin (Robitussin) 20 ml PO Q4H PRN PRN PRN Reason: COUGH Last Admin: 02/12/19 23:09 Dose: 20 ml Documented by: Levofloxacin (Levaquin Iv) 500 mg in 100 mls @ 100 mls/hr IV Q48 MAGGIE Sodium Chloride () 250 mls @ 15 mls/hr IV .[id number] PRN PRN Reason: Saline Flush Last Infusion: 02/15/19 23:00 Dose: 0 mls/hr Documented by: Insulin Human Lispro (Humalog Kwikpen (Bkc)) 0 unit SC [facility]; Protocol Last Admin: 02/16/19 07:00 Dose: Not Given Documented by: Lactic Acid (Lac-Hydrin, Amlactin) 1 applic TOPICAL TID [facility]; Protocol Last Admin: 02/16/19 07:00 Dose: 1 applicatio Documented by: Melatonin (Melatonin) 3 mg PO QHS PRN PRN PRN Reason: INSOMNIA Last Admin: 02/12/19 23:07 Dose: 3 mg Documented by: Metoclopramide HCl (Metoclopramide Hcl) 5 mg PO TIDAC [facility] Last Admin: 02/16/19 07:01 Dose: Not Given Documented by: Nortriptyline HCl (Pamelor) 50 mg PO QHS [facility] Last Admin: 02/15/19 21:31 Dose: 50 mg Documented by: Nutritional Formula (Lactose Free) (Ensure Clear) 120 ml PO TIDCM [facility] Last Admin: 02/16/19 10:23 Dose: Not Given Documented by: Nystatin (Mycostatin Powder) 1 applic TOPICAL BID [facility]; Protocol Last Admin: 02/15/19 21:30 Dose: 1 applicatio Documented by: Oxycodone HCl (Oxyir) 5 mg PO Q4H PRN PRN PRN Reason: Pain Score 4-10/10 Pregabalin (Lyrica) 50 mg PO BID [facility] Last Admin: 02/15/19 21:34 Dose: 50 mg Documented by: Sodium Chloride () 10 - 40 ml IV UD PRN PRN Reason: SALINE FLUSH Last Admin: 02/16/19 07:01 Dose: 10 ml Documented by: Venlafaxine HCl (Effexor Xr) 150 mg PO DAILY [facility] Last Admin: 02/15/19 10:02 Dose: 150 mg Documented by: Medical Necessity - Tobacco Use Smoking Status: Never smoker Assessment/Plan All Active Problems (Last Reviewed 02/12/19 @ 20:40 by Virgil Murray DO) Calciphylaxis (Acute) Lower extremity weakness (Acute) Generalized weakness (Acute) Gastroparesis (Acute) Syncope (Acute) 1. ESRD continue CCPD 1.5% and 2.5% bags, 5 exchanges 2L fill volume over 10hrs. ( 4 exchanges 2.5L fill volume at home). 2. Anemia hgb stable 3. Gastroparesis tolerating liquids 4. HTN stable 5. Hx obstructive uropathy 6. Skin necrosis bilat thighs consider bx for calciphylaxis. Will need perm access for sodium thiosulfate due to poor access if needed
[2019-02-16 10:58] LABS: Pathologist Comment/Body Fluid Reviewed
--- NOTE | 2019-02-16 11:30 | SOF_PTH ---
PATIENT: THAO HUDSON LOC: [facility] U#:[id number] AGE/SX: 43/F ROOM: [facility] RE02/13/[address]: Dr. Felix Guerra MD : 1975 BED: 1 DIS: 02/23/2019 SPEC #: [id number] RECD: 02/16/19 15:59 STATUS: ASHA REBroderick #: [id number] MIGUEL: 02/16/19 11:[address]: Erick Cuevas DEPT: SURGICAL PATHOLOGY RECD BY: Shayne Larkin ENTERED: 02/17/19 08:15 SP TYPE: SOFT TISS OTHR DR: DO Dr. Virgil Jade DO Dr. Liza D Talampas, MD Dr. Nana Yaa Koram, MD Tissues: A - Thigh, NOS B - Thigh, NOS Procedures: Special Stain Group I Surgery Specimen Level IV AFB Stain (control) GMS Stain (control) HEADER OPERATION: Debridement wound, thighs PRE-OP DIAGNOSIS: Necrotic wounds bilateral thighs TISSUE SUBMITTED: A - Left lateral thigh soft tissue, B - Right lateral thigh soft tissue MICROSCOPIC DIAGNOSIS A. Skin and soft tissue of left lateral thigh, excision: Consistent with acute panniculitis with associated dystrophic microcalcifications. See comment. B. Skin and soft tissue of right lateral thigh, excision: Consistent with acute panniculitis with associated dystrophic microcalcifications. Focal mucosal ulceration with associated acute and chronic inflammation. See comment. AM:lyric 02/19/19 COMMENT A & B. Sections shows superficial hemorrhagic congestion and early infarction of soft tissue. Acute inflammatory process involves the superficial to deep dermis including fatty tissue. Focal dystrophic microcalcifications are seen, however, classic findings of calciphylaxis are not appreciated. Vessels show thrombi and vascular congestion. No abscesses are identified. Special stains (AFB and GMS) with matched controls are negative for microorganisms. This case was discussed with Dr. Odonnell on 02/18/19 at 2:05 p.m. MICROSCOPIC DESCRIPTION Slides are reviewed. GROSS DESCRIPTION A - Received in fixative is one container labeled with the patient's name and designated left lateral thigh soft tissue. The specimen consists of an irregular fragment of skin and attached fibrofatty tissue measuring 15 x 10 cm and a depth of excision measuring 4.5 cm. The skin is reddish-mcgregor in color with focal sloughing. Serial sections reveal yellow-pink cut surfaces admixed with yellow surfaces which have a geographic distribution. The lyisjf-vfj-zjln discoloration is most prominent immediately beneath the skin. No distinct mass lesions are identified. Forms Builder sections are submitted in four cassettes. B - Received in fixative is one container labeled with the patient's name and designated right lateral thigh soft tissue. The specimen consists of an irregular fragment of skin and attached fibrofatty tissue measuring 21 x 10.5 cm and a depth of excision measuring 5 cm. The skin is reddish-mcgregor in color with focal sloughing. Serial sections reveal yellow-pink cut surfaces admixed with yellow surfaces which have a geographic distribution. The ovwaza-cwd-izfi discoloration is most prominent immediately beneath the skin. No distinct mass lesions are identified. Forms Builder sections are submitted in four cassettes. / AM:lyric 02/17/19 TC:2 CPT: 67263 x2, 48682 x2
[2019-02-16 11:41] LABS: Bedside Glucose 124 mg/dL (70-110)
--- NOTE | 2019-02-16 12:17 | NURSING ---
report called to JULITO Moralez in [facility] for pre-op
--- NOTE | 2019-02-16 15:07 | PCM.OPRPT ---
Report of Operation Date of Procedure: 02/16/19 Pre-Operative Diagnosis: 1. 14 cm necrotic wound left proximal lateral thigh, probably infected. 2. 19 cm necrotic wound right proximal anterolateral thigh, probably infected. 3. End stage renal disease on dialysis. 4. Peritoneal dialysis. 5. Painful calciphylaxis. 6. Diabetes mellitus. Post-Operative Diagnosis: 1. 14 cm necrotic wound left proximal lateral thigh with necrotizing soft tissue infection. 2. 19 cm necrotic wound right proximal anterolateral thigh with necrotizing soft tissue infection. 3. End stage renal disease on dialysis. 4. Peritoneal dialysis. 5. Painful calciphylaxis. 6. Diabetes mellitus. Surgery/Procedure Performed:: 1. Surgical preparation left proximal lateral thigh with incision and drainage and excisional debridement necrotizing soft tissue infection with skin necrosis (165 cm2). 2. Surgical preparation right proximal anterolateral thigh with incision and drainage and excisional debridement necrotizing soft tissue infection with skin necrosis (252 cm2). Description of Surgical Findings:: The patient is a 43 year old F who was recently admitted with a several day history of intractable nausea and vomiting and diarrhea. She has a history of diabetes mellitus and end stage renal disease on peritoneal dialysis. Since last week she started developing some areas of black eschar and necrotic skin on her bilateral thighs, worse on the left. They are painful when bumped. It was noted over the last week that these necrotic areas are worsening and enlarging. I was asked to evaluate this patient for surgical options for treatment. Patient was informed of the risks and complications of the procedure including alternatives to surgery. These were discussed with the patient personally. Patient voices understanding and wishes to proceed. Size of defect left proximal lateral thigh - 11 x 15 x 7 cm. Size of defect right proximal anterolateral thigh - 12 x 21 x 7 cm. parole officer: None Type of Anesthesia:: General Specimen's removed: 1. Necrotizing soft tissue infection left proximal latreral thigh to Pathology and Microbiology. 2. MRSA Wound DNA by PCR. 3. Necrotizing soft tissue infection right proximal anterolateral thigh to Pathology and Microbiology. 4. MRSA Wound DNA by PCR. Drains: None. Estimated Blood Loss (mL): 50 ml. Description of Procedure: Patient was taken to OR in supine position and was placed under general anesthesia. The bilateral thighs were prepped and draped in the usual fashion. SCD's were placed for DVT prophylaxis. Perioperative antibiotics were given intravenously. I proceeded with incision and drainage of these areas of necrosis on her bilateral thighs into the subcutaneous tissue. No gross pus was seen but there was extensive fat necrosis present and exudate present. The necrotizing process extended through Willy's fascia down to the muscle. The fascia appeared a little inflamed yet viable. The extensive fat necrosis and overlying skin necrosis was excised and debrided. This tissue that was excised and debrided is at risk for further worsening infection because her immune system is decreased due to her history of kidney failure requiring dialysis and her history of diabetes. Tissue excised was sent to Pathology for analysis to rule out carcinoma. Tissue was also sent to Microbiology for culture. A positive culture will necessitate antibiotic therapy. The wound was irrigated with saline. Hemostasis was obtained with electrocautery. Dimensions of the right proximal anterolateral thigh wound after surgical preparation with incision and drainage and excisional debridement skin and subcutaneous tissue and fascia necrotizing soft tissue infection was 12 x 21 x 7 or 252 cm2. Dimensions of the left proximal lateral thigh wound after surgical preparation with incision and drainage and excisional debridement skin and subcutaneous tissue and fascia necrotizing soft tissue infection was 11 x 15 x 7 or 165 cm2. The thigh wounds were then dressed with Mepitel nonadherent dressing followed by Kerlix gauze and Betadine followed by dry Kerlix gauze and ABD compression dressing. Compression steve wraps were also applied. Patient tolerated the procedure well and was sent to PACU in satisfactory condition. Patient will be sent upstairs for continued postop care. She will continue IV antibiotics. The VAC will be placed tomorrow. Will also check a Prealbumin and encourage nutritional supplementation with protein to help the healing process. After discharge she will [facility]up [facility]. If there is a plateau in the healing process, can proceed in a delayed fashion with further operative debridement and skin grafting or complex secondary wound closure. Grafts/Implants Used: None. - Complications None. - Admit VTE Documentation VTE Present on Admission: No VTE Mechan Device Prophylaxis: SCD's VTE Pharm Prophylaxis ordered?: No Code Visit Surgery Charges CPT - 94983 ICD-10 - I96, M79.89, S81.801A, N18.6, Z99.2, E83.59, E11.9 42868 I96, M79.89, S81.801A, N18.6, Z99.2, E83.59, E11.9 06916 I96, M79.89, S81.801A, N18.6, Z99.2, E83.59, E11.9 26337 I96, M79.89, S81.801A, N18.6, Z99.2, E83.59, E11.9 74841 I96, M79.89, S81.801A, N18.6, Z99.2, E83.59, E11.9 92462 I96, M79.89, S81.801A, N18.6, Z99.2, E83.59, E11.9 15942 I96, M79.89, S81.801A, N18.6, Z99.2, E83.59, E11.9
[2019-02-16] MEDS: Lactated Ringers 1,000 ML 100 ML IV (15:33)
[2019-02-16] MEDS: oxyCODONE 5 MG Tablet PO ×2 (16:14→20:19)
[2019-02-16] MEDS: buPROPion (XL) 300 MG TABLET.XL PO (16:15)
[2019-02-16] MEDS: Venlafaxine XR 150 MG Capsule PO (16:16)
[2019-02-16] MEDS: Pregabalin 50 MG Capsule PO ×2 (16:26→22:17)
[2019-02-16] MEDS: Nystatin Powder 15gm Bottle 1 APPLIC TOPICAL ×2 (16:31→22:19)
[2019-02-16 16:41] LABS: Bedside Glucose 128 mg/dL (70-110)
[2019-02-16 17:27] LABS: M R Staph aureus DNA By PCR Negative (Negative); Probe Check PASS; Staph aureus DNA By PCR NEGATIVE (Negative)
[2019-02-16] MEDS: Metoclopramide 5 MG TABLET PO (17:43)
[2019-02-16] MEDS: Nortriptyline 25 MG Capsule 50 MG PO (22:17)
[2019-02-16] MEDS: Insulin Lispro 100 UNIT/ML INSULN.PEN SC (22:17)
[2019-02-16 22:30] LABS: Bedside Glucose 293 mg/dL (70-110)
[2019-02-17 02:07] VITALS: BP 151/93; PULSE 86; RESP 16; TEMP 36.9; O2SAT 97
[2019-02-17 06:34] LABS: Hematocrit 31.1 % (37-47); Hemoglobin 10.1 g/dL (12.0-15.0); Mean Corp Hgb Conc 32.5 g/dL (32-36); Mean Corpuscular Hgb 24.5 pg (27.0-32.0); Mean Corpuscular Volume 75.5 fL (81-99); Mean Platelet Vol. 8.7 fl (6.2-12.0); Platelet Count 249 K/mm3 (150-450); RBC Distribution Width CV 17.5 % (11.6-14.6); RBC Distribution Width SD 47.7 fl (35.1-43.9); Red Blood Count 4.12 M/mm3 (4.2-5.4); White Blood Count 10.5 K/mm3 (4.4-11.0)
[2019-02-17] MEDS: Ammonium Lactate 225 gm Bottle 1 APPLIC TOPICAL ×3 (06:48→22:29)
[2019-02-17] MEDS: Metoclopramide 5 MG TABLET PO ×3 (06:48→16:58)
[2019-02-17] MEDS: Insulin Lispro 100 UNIT/ML INSULN.PEN SC ×3 (06:49→22:27)
[2019-02-17] MEDS: oxyCODONE 5 MG Tablet PO (06:49)
[2019-02-17 06:51] LABS: Bedside Glucose 244 mg/dL (70-110)
[2019-02-17 07:11] LABS: Anion Gap 10 (5-15); BUN 33 mg/dL (7-18); BUN/Creat Ratio 5.3 RATIO (10-20); Calcium,Total 8.1 mg/dL (8.5-10.1); Chloride 92 mmol/L (98-107); Creatinine, Serum 6.19 mg/dL (0.55-1.02); EST Glomerular Filtration Rate 8 mL/min (>60); Est Glom Filt Rate - Afr Amer 10 mL/min (>60); Estimated Creatinine Clearance 8.84 ml/min; Glucose 255 mg/dL (74-106); Potassium 3.6 mmol/L (3.5-5.1); Prealbumin 4.8 mg/dL (20.0-40.0); Sodium Level 129 mmol/L (136-145)
--- NOTE | 2019-02-17 08:51 | NURSING ---
wound photo: right thigh
--- NOTE | 2019-02-17 08:51 | NURSING ---
wound photo: left thigh
[2019-02-17 09:45] VITALS: BP 151/80; PULSE 90; RESP 18; TEMP 36.5; O2SAT 99
--- NOTE | 2019-02-17 09:48 | DIALYSIS ---
CCPD tx completed using aseptic technique. Pt tolerated tx well. Fluid balance 53ml. Effluent clear yellow, straw colored. No fibrin noted. Exit dressing D&I. Catheter clamped, but pin dislodged from catheter upon termination. Dr. Odonnell notified. Catheter secured to patients abdomen. Stay safe cap applied. Pt has no c/o at this time. Report given to balance staff staker. Pt stable
[2019-02-17] MEDS: 0.9% Saline Lock 10 ML Syringe IV ×2 (09:52→12:07)
[2019-02-17] MEDS: levoFLOXacin IV 500 MG/100 ML BAG 100 MG IV (09:53)
[2019-02-17] MEDS: Aspirin E.C. 81 MG Tablet PO (09:53)
[2019-02-17] MEDS: Pregabalin 50 MG Capsule PO ×2 (09:53→22:26)
[2019-02-17] MEDS: buPROPion (XL) 300 MG TABLET.XL PO (09:54)
[2019-02-17] MEDS: Venlafaxine XR 150 MG Capsule PO (09:54)
[2019-02-17] MEDS: Nystatin Powder 15gm Bottle 1 APPLIC TOPICAL ×2 (09:55→22:30)
--- NOTE | 2019-02-17 10:25 | PCM.PN.HOSP ---
Patient Problems: Active and Suspected Problems (Last Reviewed 02/12/19 @ 20:40 by Virgil Murray DO) Gastroparesis (Acute) Subjective: Patient seen and examined. She complains of some nausea, but denies any vomiting. She had incision and drainage and excisional debridement of necrotizing soft tissue of the left and right proximal thighs. Today's postop day 1. Review of systems otherwise negative. Vitals/I&O's: Vital Signs Temp Pulse Resp BP Pulse Ox 97.7 F L 90 18 151/80 H 99 02/17/19 09:45 02/17/19 09:45 02/17/19 09:45 02/17/19 09:45 02/17/19 09:45 Oxygen Flow Rate (L/min) 2 Oxygen Delivery Method Room Air Weight: 263 lb 0.183 oz Body Mass Index (BMI) 48.4 Finger Stick Blood Glucose 98 Intake and Output for Last 24 Hours 02/15/19 02/16/19 02/17/19 23:59 23:59 23:59 Intake Total 971.25 / 1471.25 1990 200 / 200 Output Total 507 / 507 30 / 30 Balance 464.25 / 964.25 1990 170 / 170 General: Alert, Oriented x3, Cooperative, No apparent distress HEENT: Atraumatic, PERRLA, EOMI, Normocephalic Oral: Moist Mucosa Neck: Supple, No JVD, Negative Carotid Bruits Lungs: Clear to auscultation, Normal air movement, No rhonchi, No wheeze, No rales Cardiovascular: Regular rate, Regular Rhythm, Normal S1, Normal S2, No murmurs Abdomen: Bowel Sounds Present, Soft, Non Tender, Non-Distended, No Hepato-splenomegaly Extremities: No clubbing, No cyanosis, No edema, Capillary Refill Less than 3 Seconds Skin: - - has wound vac over surgical areas on both thighs Musculoskeletal: No Tenderness to Palpation of Joints or Extremities Lymphatic: No Cervical, Supraclavicular, or Inguinal Adenopathy Neurological: Cranial nerves II-XII grossly intact, Neuro grossly intact, Motor Exam 5/5 strength throughout Psych/Mental Status: Normal Affect, Appropriate, Alert and oriented to time, place, person, mood and affect Microbiology Past 72 Hours 02/16/19 Unknown Tissue - Leg, Right Wound Culture - Preliminary No growth-Final to follow 02/16/19 Unknown Tissue - Leg, Left Wound Culture - Preliminary No growth-Final to follow 02/13/19 13:40 Fluid - Peritoneal Gram Stain - Final 02/13/19 13:40 Fluid - Peritoneal Body Fluid Culture - Final Culture exhibits no growth. 02/13/19 13:40 Fluid - Peritoneal Anaerobic Culture - Preliminary No growth in 48 hours. Laboratory Results 02/13/19 13:40: Fl Pathologist Comment Reviewed 02/14/19 09:30: Fl Pathologist Comment Reviewed 02/16/19 11:29: POC Glucose 124 H 02/16/19 16:29: POC Glucose 128 H 02/16/19 22:15: POC Glucose 293 H 02/16/19 : S.aureus Protein A PCR NEGATIVE, MRSA (PCR) Negative 02/16/19 : S.aureus Protein A PCR NEGATIVE, MRSA (PCR) Negative 02/17/19 06:12: WBC 10.5, RBC 4.12 L, Hgb 10.1 L, Hct 31.1 L, MCV 75.5 L, MCH 24.5 L, MCHC 32.5, RDW Std Deviation 47.7 H, RDW Coeff of Lu 17.5 H, Plt Count 249, MPV 8.7 02/17/19 06:12: Sodium 129 L, Potassium 3.6, Chloride 92 L, Carbon Dioxide 27.0, Anion Gap 10, BUN 33 H, Creatinine 6.19 H, Estim Creat Clear Calc 8.84, Est GFR (MDRD) Af Amer 10 L, Est GFR (MDRD) Non-Af 8 L, BUN/Creatinine Ratio 5.3 L, Glucose 255 H, Calcium 8.1 L, Prealbumin 4.8 L 02/17/19 06:41: POC Glucose 244 H Current Medications Acetaminophen (Tylenol) 650 mg PO Q6H PRN PRN PRN Reason: Pain Score 1-3/Temp > 100.7 F Last Admin: 02/15/19 12:29 Dose: 650 mg Documented by: Aspirin (Ecotrin) 81 mg PO DAILY@0800 [facility] Last Admin: 02/17/19 09:53 Dose: 81 mg Documented by: Bupropion HCl (Wellbutrin Xl) 300 mg PO DAILY [facility] Last Admin: 02/17/19 09:54 Dose: 300 mg Documented by: Dextrose (D50w Syringe) 0 gm IV X1 PRN; Protocol PRN Reason: Hypoglycemia Emollient Ointment (Eucerin Intensive Repair) 1 applic TOPICAL 4X/DAY PRN PRN; Protocol PRN Reason: DRY SKIN Glucagon () 1 mg IM .X1 PRN PRN Reason: Hypoglycemia Guaifenesin (Robitussin) 20 ml PO Q4H PRN PRN PRN Reason: COUGH Last Admin: 02/12/19 23:09 Dose: 20 ml Documented by: Levofloxacin (Levaquin Iv) 500 mg in 100 mls @ 100 mls/hr IV Q48 MAGGIE Last Admin: 02/17/19 09:53 Dose: 100 mls/hr Documented by: Sodium Chloride () 250 mls @ 15 mls/hr IV .[id number] PRN PRN Reason: Saline Flush Last Infusion: 02/15/19 23:00 Dose: 0 mls/hr Documented by: Insulin Human Lispro (Humalog Kwikpen (Bkc)) 0 unit SC ACHS [facility]; Protocol Last Admin: 02/17/19 06:49 Dose: 3 units Documented by: Lactic Acid (Lac-Hydrin, Amlactin) 1 applic TOPICAL TID [facility]; Protocol Last Admin: 02/17/19 06:48 Dose: 1 applicatio Documented by: Melatonin (Melatonin) 3 mg PO QHS PRN PRN PRN Reason: INSOMNIA Last Admin: 02/12/19 23:07 Dose: 3 mg Documented by: Metoclopramide HCl (Metoclopramide Hcl) 5 mg PO TIDAC [facility] Last Admin: 02/17/19 06:48 Dose: 5 mg Documented by: Nortriptyline HCl (Pamelor) 50 mg PO QHS [facility] Last Admin: 02/16/19 22:17 Dose: 50 mg Documented by: Nutritional Formula (Lactose Free) (Ensure Clear) 120 ml PO TIDCM [facility] Last Admin: 02/17/19 09:47 Dose: Not Given Documented by: Nystatin (Mycostatin Powder) 1 applic TOPICAL BID [facility]; Protocol Last Admin: 02/17/19 09:55 Dose: 1 applicatio Documented by: Oxycodone HCl (Oxyir) 5 mg PO Q4H PRN PRN PRN Reason: Pain Score 4-10/10 Last Admin: 02/17/19 06:49 Dose: 5 mg Documented by: Pregabalin (Lyrica) 50 mg PO BID [facility] Last Admin: 02/17/19 09:53 Dose: 50 mg Documented by: Sodium Chloride () 10 - 40 ml IV UD PRN PRN Reason: SALINE FLUSH Last Admin: 02/17/19 09:52 Dose: 10 ml Documented by: Venlafaxine HCl (Effexor Xr) 150 mg PO DAILY [facility] Last Admin: 02/17/19 09:54 Dose: 150 mg Documented by: STROKE Vital Signs/Narrative: Vital Signs Temp Pulse Resp BP Pulse Ox 02/17/19 09:45 97.7 F L 90 18 151/80 H 99 Medical Necessity - Tobacco Use Smoking Status: Never smoker Assessment/Plan All Active Problems (Last Reviewed 02/12/19 @ 20:40 by Virgil Murray DO) Calciphylaxis (Acute) Lower extremity weakness (Acute) Generalized weakness (Acute) Gastroparesis (Acute) Syncope (Acute) 1. Acute gastroparesis: resolved. on reglan 5mg tid 2. Bilateral thigh skin necrosis s/p incision and drainage and excisional debridement. Today is POD 1 has wound vac on both thighs. preliminary wound cultures are negative; preliminary gram stain showed 2+ wbc on IV levaquin plastic surgery on board PT/OT 3. Hyponatremia: Sodium today is 129. I think this is likely due to hypervolemic hyponatremia on account of ESRD. She is due for dialysis today; last dialysis was 02/15/19, with removal of 507mls. so we will monitor for improvement with dialysis. 4. Hypokalemia: Resolved 5. Hypomagnesemia: Resolved. 6. ESRD: On peritoneal dialysis. Unable to have hemodialysis on account of steal syndrome with AV fistula. Nephrology on board 7. Type 2 diabetes mellitus: Diet-controlled: On insulin sliding scale. Accu-Cheks before meals at bedtime. 8. Anxiety and depression: On Effexor nortriptyline as well as wellbutrin DVT Prophylaxis: lovenox Code Visit Inpatient E&M: 44594 Subs Hosp L2
--- NOTE | 2019-02-17 10:42 | PCM.PN.REN ---
Patient Problems: Active and Suspected Problems (Last Reviewed 02/12/19 @ 20:40 by Virgil Murray DO) Gastroparesis (Acute) Subjective: underwent debridement of wounds yesterday. Denies nausea, vomiting, diarrhea. Tolerating light diet well so far. No fever, chills. - Physical Exam Vitals/I&O's: Vital Signs Temp Pulse Resp BP Pulse Ox 97.7 F L 90 18 151/80 H 99 02/17/19 09:45 02/17/19 09:45 02/17/19 09:45 02/17/19 09:45 02/17/19 09:45 Oxygen Flow Rate (L/min) 2 Oxygen Delivery Method Room Air Weight: 119.3 kg Body Mass Index (BMI) 48.4 Finger Stick Blood Glucose 98 Intake and Output for Last 24 Hours 02/15/19 02/16/19 02/17/19 23:59 23:59 23:59 Intake Total 971.25 / 1471.25 1990 200 / 200 Output Total 507 / 507 30 / 30 Balance 464.25 / 964.25 1990 170 / 170 General: Alert, Oriented x3, Cooperative Lungs: Clear to auscultation Cardiovascular: Regular rate Abdomen: Bowel Sounds Present, Soft, Non Tender, Obese Extremities: No edema, - - wound vac applied Psych/Mental Status: Normal Affect, Appropriate, Alert and oriented to time, place, person, mood and affect Microbiology Past 72 Hours 02/16/19 Unknown Tissue - Leg, Right Wound Culture - Preliminary No growth-Final to follow 02/16/19 Unknown Tissue - Leg, Left Wound Culture - Preliminary No growth-Final to follow 02/13/19 13:40 Fluid - Peritoneal Gram Stain - Final 02/13/19 13:40 Fluid - Peritoneal Body Fluid Culture - Final Culture exhibits no growth. 02/13/19 13:40 Fluid - Peritoneal Anaerobic Culture - Preliminary No growth in 48 hours. Laboratory Results 02/13/19 13:40: Fl Pathologist Comment Reviewed 02/14/19 09:30: Fl Pathologist Comment Reviewed 02/16/19 11:29: POC Glucose 124 H 02/16/19 16:29: POC Glucose 128 H 02/16/19 22:15: POC Glucose 293 H 02/16/19 : S.aureus Protein A PCR NEGATIVE, MRSA (PCR) Negative 02/16/19 : S.aureus Protein A PCR NEGATIVE, MRSA (PCR) Negative 02/17/19 06:12: WBC 10.5, RBC 4.12 L, Hgb 10.1 L, Hct 31.1 L, MCV 75.5 L, MCH 24.5 L, MCHC 32.5, RDW Std Deviation 47.7 H, RDW Coeff of Lu 17.5 H, Plt Count 249, MPV 8.7 02/17/19 06:12: Sodium 129 L, Potassium 3.6, Chloride 92 L, Carbon Dioxide 27.0, Anion Gap 10, BUN 33 H, Creatinine 6.19 H, Estim Creat Clear Calc 8.84, Est GFR (MDRD) Af Amer 10 L, Est GFR (MDRD) Non-Af 8 L, BUN/Creatinine Ratio 5.3 L, Glucose 255 H, Calcium 8.1 L, Prealbumin 4.8 L 02/17/19 06:41: POC Glucose 244 H Current Medications Acetaminophen (Tylenol) 650 mg PO Q6H PRN PRN PRN Reason: Pain Score 1-3/Temp > 100.7 F Last Admin: 02/15/19 12:29 Dose: 650 mg Documented by: Aspirin (Ecotrin) 81 mg PO DAILY@0800 [facility] Last Admin: 02/17/19 09:53 Dose: 81 mg Documented by: Bupropion HCl (Wellbutrin Xl) 300 mg PO DAILY [facility] Last Admin: 02/17/19 09:54 Dose: 300 mg Documented by: Dextrose (D50w Syringe) 0 gm IV X1 PRN; Protocol PRN Reason: Hypoglycemia Emollient Ointment (Eucerin Intensive Repair) 1 applic TOPICAL 4X/DAY PRN PRN; Protocol PRN Reason: DRY SKIN Glucagon () 1 mg IM .X1 PRN PRN Reason: Hypoglycemia Guaifenesin (Robitussin) 20 ml PO Q4H PRN PRN PRN Reason: COUGH Last Admin: 02/12/19 23:09 Dose: 20 ml Documented by: Levofloxacin (Levaquin Iv) 500 mg in 100 mls @ 100 mls/hr IV Q48 [facility] Last Admin: 02/17/19 09:53 Dose: 100 mls/hr Documented by: Sodium Chloride () 250 mls @ 15 mls/hr IV .[id number] PRN PRN Reason: Saline Flush Last Infusion: 02/15/19 23:00 Dose: 0 mls/hr Documented by: Insulin Human Lispro (Humalog Kwikpen (Bkc)) 0 unit SC ACHS [facility]; Protocol Last Admin: 02/17/19 06:49 Dose: 3 units Documented by: Lactic Acid (Lac-Hydrin, Amlactin) 1 applic TOPICAL TID [facility]; Protocol Last Admin: 02/17/19 06:48 Dose: 1 applicatio Documented by: Melatonin (Melatonin) 3 mg PO QHS PRN PRN PRN Reason: INSOMNIA Last Admin: 02/12/19 23:07 Dose: 3 mg Documented by: Metoclopramide HCl (Metoclopramide Hcl) 5 mg PO TIDAC [facility] Last Admin: 02/17/19 06:48 Dose: 5 mg Documented by: Nortriptyline HCl (Pamelor) 50 mg PO QHS [facility] Last Admin: 02/16/19 22:17 Dose: 50 mg Documented by: Nutritional Formula (Lactose Free) (Ensure Clear) 120 ml PO TIDCM [facility] Last Admin: 02/17/19 09:47 Dose: Not Given Documented by: Nystatin (Mycostatin Powder) 1 applic TOPICAL BID [facility]; Protocol Last Admin: 02/17/19 09:55 Dose: 1 applicatio Documented by: Oxycodone HCl (Oxyir) 5 mg PO Q4H PRN PRN PRN Reason: Pain Score 4-10/10 Last Admin: 02/17/19 06:49 Dose: 5 mg Documented by: Pregabalin (Lyrica) 50 mg PO BID [facility] Last Admin: 02/17/19 09:53 Dose: 50 mg Documented by: Sodium Chloride () 10 - 40 ml IV UD PRN PRN Reason: SALINE FLUSH Last Admin: 02/17/19 09:52 Dose: 10 ml Documented by: Venlafaxine HCl (Effexor Xr) 150 mg PO DAILY [facility] Last Admin: 02/17/19 09:54 Dose: 150 mg Documented by: Medical Necessity - Tobacco Use Smoking Status: Never smoker Assessment/Plan All Active Problems (Last Reviewed 02/12/19 @ 20:40 by Virgil Murray DO) Calciphylaxis (Acute) Lower extremity weakness (Acute) Generalized weakness (Acute) Gastroparesis (Acute) Syncope (Acute) 1. ESRD change CCPD rx to 4.25% and 2.5% bags, 5 exchanges 2L fill volume over 10hrs. ( 4 exchanges 2.5L fill volume at home). 2. Anemia hgb stable 3. Gastroparesis tolerating liquids 4. HTN stable 5. Hx obstructive uropathy 6. Skin necrosis bilat thighs s/p debridement, wound vac
--- NOTE | 2019-02-17 10:59 | CASEMGMT ---
Addendum entered by Blanca Rodriguez 02/17/19 11:58: Met with pt a second time and discussed home health nursing to care for wound vacs along with home PT/OT if needed. Pt expressed understanding of this option. Pt stating she cannot move into her parents home but would have to go back home alone. Pt now stating that although she doesn't want to, she may need SNF if she does not do well with therapy. Written list of area SNFs provided to pt. SW will follow up after pt seen by therapy. [place] Original Note: Social Work SW received referral that pt may need SNF at discharge. SW met with pt to discuss d/c plan. Pt lives alone in an efficiency apartment. Her parents and brother live in a house down the street. Pt is on peritoneal dialysis which she hooks up each night at bedtime. Pt states she is not able to hook all the leads herself so her father comes over and assists with hooking up. Pt is able to drive and is independent with ADLs. Pt states she goes to parents home daily for dinner. SW inquired about care of wound vac. Discussed ability of pt parents to help with dressing changes and pt thinks they may be able to help but cannot be solely responsible. SW broached the topic of SNF and pt stating that she has fought going to a intermediate before when she was told to go and she will fight it now. Pt strongly wants to return home. Therapy has been ordered, awaiting their consultation to determine pt ability to care for self and ambulate independently. Pt is aware and understanding of this. SW will continue to follow for discharge planning. Plan: undetermined at this time [place]
[2019-02-17 12:15] LABS: Bedside Glucose 201 mg/dL (70-110)
--- NOTE | 2019-02-17 12:53 | NS ---
Please change diet to carbohydrate controlled, low sodium w/ fluid restriction as indicated. Recommend small frequent meals with foods/snacks low in fat and fiber. Protein restricted diet NOT indicated currently. Pt w/ high protein needs d/t wounds and peritoneal dialysis treatments. Recommend 1 packet Graeme BID for wound healing. Recommend referral to outpatient Nutrition Services for additional nutrition education and counseling. Edita Rich MS, RDN, LD
--- NOTE | 2019-02-17 13:55 | CASEMGMT ---
Social Work Note SW reviewed PT/OT notes, pt was assist of 2 and only walked 4ft. SW met with pt to confirm discharge plans. SW introduced self and role at [facility]. Pt is alert and orientated x3. Pt states she is agreeable to SNF and would like [facility]. SW placed a call to Bella at [facility] and provided referral. SW faxed referral. Plan: [facility] pending acceptance Josefina Rose CLAM GROWER, AIRFLIGHT ATTENDANTS SUPERVISOR
[2019-02-17 14:38] VITALS: BP 120/57; PULSE 81; RESP 16; TEMP 36.6; O2SAT 96
[2019-02-17 17:05] LABS: Bedside Glucose 147 mg/dL (70-110)
--- NOTE | 2019-02-17 17:28 | PN.SURG_ITS ---
Patient Problems: Active and Suspected Problems (Last Reviewed 02/12/19 @ 20:40 by Virgil Murray DO) Gastroparesis (Acute) Subjective: Postop #1 Patient is resting comfortably. VAC was applied today. - Physical Exam Vitals/I&O's: Vital Signs Temp Pulse Resp BP Pulse Ox 97.8 F 81 16 120/57 L 96 02/17/19 14:38 02/17/19 14:38 02/17/19 14:38 02/17/19 14:38 02/17/19 14:38 Oxygen Flow Rate (L/min) 2 Oxygen Delivery Method Room Air Weight: 263 lb 0.183 oz Body Mass Index (BMI) 48.4 Finger Stick Blood Glucose 98 Intake and Output for Last 24 Hours 02/15/19 02/16/19 02/17/19 23:59 23:59 23:59 Intake Total 971.25 / 1471.25 1990 540 / 540 Output Total 507 / 507 30 / 30 Balance 464.25 / 964.25 1990 510 / 510 General: Alert, Oriented x3 HEENT: PERRLA Oral: Moist Mucosa Neck: Supple Abdomen: Soft, Non-Distended Skin: Ulcer/ Wound - bilateral thigh wounds are stable. No active bleeding seen. VAC applied today. Neurological: Cranial nerves II-XII grossly intact Psych/Mental Status: Normal Affect, Appropriate Microbiology Past 72 Hours 02/16/19 Unknown Tissue - Leg, Right Gram Stain - Final 02/16/19 Unknown Tissue - Leg, Right Wound Culture - Preliminary No growth-Final to follow 02/16/19 Unknown Tissue - Leg, Left Gram Stain - Final 02/16/19 Unknown Tissue - Leg, Left Wound Culture - Preliminary No growth-Final to follow 02/13/19 13:40 Fluid - Peritoneal Gram Stain - Final 02/13/19 13:40 Fluid - Peritoneal Body Fluid Culture - Final Culture exhibits no growth. 02/13/19 13:40 Fluid - Peritoneal Anaerobic Culture - Preliminary No growth in 48 hours. Laboratory Results 02/16/19 22:15: POC Glucose 293 H 02/17/19 06:12: WBC 10.5, RBC 4.12 L, Hgb 10.1 L, Hct 31.1 L, MCV 75.5 L, MCH 24.5 L, MCHC 32.5, RDW Std Deviation 47.7 H, RDW Coeff of Lu 17.5 H, Plt Count 249, MPV 8.7 02/17/19 06:12: Sodium 129 L, Potassium 3.6, Chloride 92 L, Carbon Dioxide 27.0, Anion Gap 10, BUN 33 H, Creatinine 6.19 H, Estim Creat Clear Calc 8.84, Est GFR (MDRD) Af Amer 10 L, Est GFR (MDRD) Non-Af 8 L, BUN/Creatinine Ratio 5.3 L, Glucose 255 H, Calcium 8.1 L, Prealbumin 4.8 L 02/17/19 06:41: POC Glucose 244 H 02/17/19 12:07: POC Glucose 201 H 02/17/19 16:53: POC Glucose 147 H Current Medications Acetaminophen (Tylenol) 650 mg PO Q6H PRN PRN PRN Reason: Pain Score 1-3/Temp > 100.7 F Last Admin: 02/15/19 12:29 Dose: 650 mg Documented by: Aspirin (Ecotrin) 81 mg PO DAILY@0800 [facility] Last Admin: 02/17/19 09:53 Dose: 81 mg Documented by: Bupropion HCl (Wellbutrin Xl) 300 mg PO DAILY [facility] Last Admin: 02/17/19 09:54 Dose: 300 mg Documented by: Dextrose (D50w Syringe) 0 gm IV X1 PRN; Protocol PRN Reason: Hypoglycemia Emollient Ointment (Eucerin Intensive Repair) 1 applic TOPICAL 4X/DAY PRN PRN; Protocol PRN Reason: DRY SKIN Glucagon () 1 mg IM .X1 PRN PRN Reason: Hypoglycemia Guaifenesin (Robitussin) 20 ml PO Q4H PRN PRN PRN Reason: COUGH Last Admin: 02/12/19 23:09 Dose: 20 ml Documented by: Levofloxacin (Levaquin Iv) 500 mg in 100 mls @ 100 mls/hr IV Q48 [facility] Last Infusion: 02/17/19 12:07 Dose: Infused Documented by: Sodium Chloride () 250 mls @ 15 mls/hr IV .[id number] PRN PRN Reason: Saline Flush Last Infusion: 02/17/19 12:20 Dose: Infused Documented by: Insulin Human Lispro (Humalog Kwikpen (Bkc)) 0 unit SC ACHS [facility]; Protocol Last Admin: 02/17/19 16:57 Dose: Not Given Documented by: Lactic Acid (Lac-Hydrin, Amlactin) 1 applic TOPICAL TID [facility]; Protocol Last Admin: 02/17/19 14:31 Dose: 1 applicatio Documented by: Melatonin (Melatonin) 3 mg PO QHS PRN PRN PRN Reason: INSOMNIA Last Admin: 02/12/19 23:07 Dose: 3 mg Documented by: Metoclopramide HCl (Metoclopramide Hcl) 5 mg PO TIDAC [facility] Last Admin: 02/17/19 16:58 Dose: 5 mg Documented by: Nortriptyline HCl (Pamelor) 50 mg PO QHS [facility] Last Admin: 02/16/19 22:17 Dose: 50 mg Documented by: Nutritional Formula (Lactose Free) (Ensure Clear) 120 ml PO TIDCM [facility] Last Admin: 02/17/19 16:57 Dose: Not Given Documented by: Nystatin (Mycostatin Powder) 1 applic TOPICAL BID [facility]; Protocol Last Admin: 02/17/19 09:55 Dose: 1 applicatio Documented by: Oxycodone HCl (Oxyir) 5 mg PO Q4H PRN PRN PRN Reason: Pain Score 4-10/10 Last Admin: 02/17/19 06:49 Dose: 5 mg Documented by: Pregabalin (Lyrica) 50 mg PO BID [facility] Last Admin: 02/17/19 09:53 Dose: 50 mg Documented by: Sodium Chloride () 10 - 40 ml IV UD PRN PRN Reason: SALINE FLUSH Last Admin: 02/17/19 12:07 Dose: 10 ml Documented by: Venlafaxine HCl (Effexor Xr) 150 mg PO DAILY [facility] Last Admin: 02/17/19 09:54 Dose: 150 mg Documented by: Medical Necessity - Tobacco Use Smoking Status: Never smoker Assessment/Plan All Active Problems (Last Reviewed 02/12/19 @ 20:40 by Virgil Murray DO) Calciphylaxis (Acute) Lower extremity weakness (Acute) Generalized weakness (Acute) Gastroparesis (Acute) Syncope (Acute) 1. 14 cm necrotic wound left proximal lateral thigh with necrotizing soft tissue infection. 2. 19 cm necrotic wound right proximal anterolateral thigh with necrotizing soft tissue infection. 3. End stage renal disease on dialysis. 4. Peritoneal dialysis. 5. Painful calciphylaxis. 6. Diabetes mellitus. 7. s/p surgical preparation left proximal lateral thigh with incision and drainage and excisional debridement necrotizing soft tissue infection with skin necrosis (165 cm2) and surgical preparation right proximal anterolateral thigh with incision and drainage and excisional debridement necrotizing soft tissue infection with skin necrosis (252 cm2). Thigh wounds are stable. No active bleeding seen. VAC applied today with some discomfort. To be changed three times per week at 150 mmHg continuous suction. Operative cultures are negative thus far. Continue Levaquin. Anticipate increased metabolic demands from the wounds and the infection. Prealbumin was 4.8. Encourage nutritional supplementation with protein to help the healing process. In renal failure patients on dialysis, when necrotic skin infections start developing, calciphylaxis can be present. Sometimes this is progressive in other areas on the extremities and the trunk which can also develop necrotic skin infections. Because of the severe pain present in these wounds and if multiple wounds develop, these patients sometimes need to go to a [facility] Center for more aggressive wound care with a whirlpool and the need for much higher doses of IV analgesia. After discharge can followup at the Wound Center.
--- NOTE | 2019-02-17 19:34 | DIALYSIS ---
CCPD tx initiated without problem using aseptic technique. Cleaned exit site. New dressing applied and secured. Inital drain and fill completed. Eflluent clear, straw colored yellow. No fibrin noted. Pt has no c/o at this time. Report given to staff, RN. Pt stable.
[2019-02-17 20:34] VITALS: BP 125/66; PULSE 84; RESP 18; TEMP 36.4; O2SAT 98
[2019-02-17] MEDS: Nortriptyline 25 MG Capsule 50 MG PO (22:26)
[2019-02-17 22:41] LABS: Bedside Glucose 334 mg/dL (70-110)
[2019-02-18 02:25] VITALS: BP 122/73; PULSE 70; RESP 18; TEMP 36.6; O2SAT 98
[2019-02-18 06:06] LABS: Absolute Lymphocyte Count 0.77 X10^3/uL (0.83-4.51); Absolute Neutrophil Count 5.7 X10^3/uL (2.0-7.7); Basophil# 0.03 X10^3/uL; Basophil% 0.4 % (0-1); Eosinophil# 0.13 X10^3/uL; Eosinophils% 1.7 % (0-5); Hematocrit 31.8 % (37-47); Hemoglobin 10.1 g/dL (12.0-15.0); Lymphocyte # 0.77 X10^3/ul (4.0); Lymphocyte % 10.3 % (19-41); Mean Corp Hgb Conc 31.8 g/dL (32-36); Mean Corpuscular Hgb 24.3 pg (27.0-32.0); Mean Corpuscular Volume 76.4 fL (81-99); Monocyte# 0.76 X10^3/uL; Monocyte% 10.2 % (0-10); NRBC Flagged by Analyzer 0 % (0-5); Neutrophil % 76.3 % (47-70); Platelet Count 237 K/mm3 (150-450); RBC Distribution Width CV 17.3 % (11.6-14.6); RBC Distribution Width SD 47.9 fl (35.1-43.9); Red Blood Count 4.16 M/mm3 (4.2-5.4); White Blood Count 7.5 K/mm3 (4.4-11.0)
[2019-02-18 06:16] LABS: Albumin, Serum 1.7 g/dL (3.2-5.0); BUN 34 mg/dL (7-18); BUN/Creat Ratio 5.6 RATIO (10-20); Calcium,Total 8.4 mg/dL (8.5-10.1); Chloride 94 mmol/L (98-107); Creatinine, Serum 6.11 mg/dL (0.55-1.02); EST Glomerular Filtration Rate 8 mL/min (>60); Est Glom Filt Rate - Afr Amer 10 mL/min (>60); Estimated Creatinine Clearance 8.96 ml/min; Glucose 158 mg/dL (74-106); Phosphorus 4.5 mg/dL (2.5-4.9); Potassium 3.4 mmol/L (3.5-5.1); Sodium Level 131 mmol/L (136-145)
[2019-02-18] MEDS: Metoclopramide 5 MG TABLET PO ×3 (06:52→16:07)
[2019-02-18] MEDS: oxyCODONE 5 MG Tablet PO ×2 (06:52→16:14)
[2019-02-18] MEDS: Ammonium Lactate 225 gm Bottle 1 APPLIC TOPICAL ×3 (06:53→22:46)
[2019-02-18 07:01] LABS: Bedside Glucose 117 mg/dL (70-110)
--- NOTE | 2019-02-18 08:12 | NURSING ---
Pt resting in bed with eyes closed. wound VAC dressings remain in place with good seal noted at 150mmHg low continuous suction. no discomfort noted at this time. awaiting precert to correction.
[2019-02-18] MEDS: Aspirin E.C. 81 MG Tablet PO (08:23)
[2019-02-18 08:30] VITALS: BP 127/84; PULSE 80; RESP 16; TEMP 36.3; O2SAT 100
[2019-02-18 08:58] VITALS: BP 127/84; PULSE 80; RESP 18; TEMP 36.3; O2SAT 100
[2019-02-18] MEDS: Nystatin Powder 15gm Bottle 1 APPLIC TOPICAL ×2 (09:10→22:46)
[2019-02-18] MEDS: Pregabalin 50 MG Capsule PO ×2 (09:13→22:52)
--- NOTE | 2019-02-18 09:31 | CASEMGMT ---
Social Work Note RAIZA spoke with Bella at [facility] asking where pt gets supplies through for dialysis. SW in to speak with pt. Pt states she gets her supples through [facility]. RAIZA placed a call back to Bella at [facility] and updated her on this. Bella states she will be calling [facility] to see if staff is able to be trained on peritoneal dialysis and then will give this worker a call back. Plan: [facility] today pending acceptance Josefina Rose QUARRY SUPERVISOR OPEN [employer]IT, INSTALLMENT ACCOUNT CHECKER
[2019-02-18 10:57] LABS: Body Fluid Mononuclear WBC # 0.072 10^3/uL; Body Fluid Mononuclear WBC % 15.6 %; Body Fluid Polynuclear WBC # 0.391 10^3/uL; Body Fluid Polynuclear WBC % 84.4 %; Body Fluid Total Cells Counted 0.466 10^3/ul; White Blood Count/Body Fluid 0.463 10^3/uL
[2019-02-18 11:13] LABS: Auto B Fluid Analyzer BKGD Ct COUNTS W/IN LIMITS (W/IN LIMITS)
[2019-02-18 11:14] LABS: Appearance/Body Fluid CLEAR; Color/Body Fluid COLORLESS; Source- Body Fluid PERITONEAL FLUID
[2019-02-18] MEDS: Venlafaxine XR 150 MG Capsule PO (11:20)
[2019-02-18] MEDS: buPROPion (XL) 300 MG TABLET.XL PO (11:20)
[2019-02-18 11:23] LABS: Red Cell Count/Body Fluid 10 /mm3
[2019-02-18 11:28] LABS: Lymphocytes 11 %; Monocytes 9 %; Neutrophil (Segs) 80 %
[2019-02-18 11:29] LABS: Body Fluid QC Type(s) BF1Q
--- NOTE | 2019-02-18 11:51 | DIALYSIS ---
CCPD complete. Patient disconnected from PD cycler using aseptic technique. Net fluid balance positive 109 ml. Drainage if yellow and fairly clear with small amount of fibrin. Dr. Odonnell notified. PD fluid cell count ordred. LLQ PD catheter dressing changed per protocol. Site benign. patient denies any pain or tenderness at PD catheter site. Report given to primary RN Julia Shelley
--- NOTE | 2019-02-18 12:00 | CASEMGMT ---
Social Work Note RAIZA spoke with Bella at [facility] stating she is waiting to hear from [facility] if they are able to train their staff [facility] states that it is a liability thing that they need to have their staff trained before being able to accept pt with peritonial dialysis. SW in to speak with pt. SW updated pt on above information but asked pt if she had a second option in the event [facility] is not able to accept pt. SW updated pt that it is going to be difficult to find SNF in [place] that is able to accept pt with peritoneal dialysis. SW educated pt that [facility] may be able to accommodate pt's peritoneal dialysis. Pt states try [facility] last. Pt states to try facilities in [place] before trying [facility]. RAIZA placed a call to [facility] and spoke with Jannie. Jannie states their staff has done peritoneal dialysis before and would be able to do peritoneal dialysis again. RAIZA faxed referral to [facility]. Plan: SNF pending acceptance Josefina Rose SHAREBROKER, LINOTYPE WORKER
--- NOTE | 2019-02-18 12:12 | PN.RENAL_ITS ---
Patient Problems: Active and Suspected Problems (Last Reviewed 02/12/19 @ 20:40 by Virgil Murray DO) Gastroparesis (Acute) Subjective: fibrin noted on disconnect. Denies NVD or abdominal pain. Cell count sent. Receiving pain medications, drowsy - Physical Exam Vitals/I&O's: Vital Signs Temp Pulse Resp BP Pulse Ox 97.3 F L 80 18 127/84 H 100 02/18/19 08:58 02/18/19 08:58 02/18/19 08:58 02/18/19 08:58 02/18/19 08:58 Oxygen Flow Rate (L/min) 2 Oxygen Delivery Method Room Air Weight: 102.1 kg Body Mass Index (BMI) 48.4 Finger Stick Blood Glucose 98 Intake and Output for Last 24 Hours 02/16/19 02/17/19 02/18/19 23:59 23:59 23:59 Intake Total 1990 540 / 540 Output Total 0 / 0 Balance 1990 510 / 510 0 / 0 General: Alert, Oriented x3, Cooperative Lungs: Clear to auscultation Cardiovascular: Regular rate Abdomen: Bowel Sounds Present, Soft, Non Tender, Non-Distended, Obese Skin: Ulcer/ Wound - debridement of thigh wounds, wound vac Musculoskeletal: No Muscle Wasting Psych/Mental Status: Normal Affect, Appropriate, Alert and oriented to time, place, person, mood and affect Microbiology Past 72 Hours 02/16/19 Unknown Tissue - Leg, Left Gram Stain - Final 02/16/19 Unknown Tissue - Leg, Left Wound Culture - Preliminary No growth-Final to follow 02/16/19 Unknown Tissue - Leg, Left Anaerobic Culture - Preliminary No growth in 48 hours. 02/16/19 Unknown Tissue - Leg, Right Gram Stain - Final 02/16/19 Unknown Tissue - Leg, Right Wound Culture - Preliminary No growth-Final to follow 02/16/19 Unknown Tissue - Leg, Right Anaerobic Culture - Preliminary No growth in 48 hours. 02/13/19 13:40 Fluid - Peritoneal Gram Stain - Final 02/13/19 13:40 Fluid - Peritoneal Body Fluid Culture - Final Culture exhibits no growth. 02/13/19 13:40 Fluid - Peritoneal Anaerobic Culture - Preliminary No growth in 48 hours. Laboratory Results 02/17/19 12:07: POC Glucose 201 H 02/17/19 16:53: POC Glucose 147 H 02/17/19 22:22: POC Glucose 334 H 02/18/19 05:44: WBC 7.5, RBC 4.16 L, Hgb 10.1 L, Hct 31.8 L, MCV 76.4 L, MCH 24.3 L, MCHC 31.8 L, RDW Std Deviation 47.9 H, RDW Coeff of Lu 17.3 H, Plt Count 237, MPV 9.0, Immature Gran % (Auto) 1.100 H, Neut % (Auto) 76.3 H, Lymph % (Auto) 10.3 L, [place] % (Auto) 10.2 H, Eos % (Auto) 1.7, Baso % (Auto) 0.4, Absolute Neuts (auto) 5.7, Absolute Lymphs (auto) 0.77 L, Nucleated RBC % 0 02/18/19 05:44: Sodium 131 L, Potassium 3.4 L, Chloride 94 L, Carbon Dioxide 26.0, BUN 34 H, Creatinine 6.11 H, Estim Creat Clear Calc 8.96, Est GFR (MDRD) Af Amer 10 L, Est GFR (MDRD) Non-Af 8 L, BUN/Creatinine Ratio 5.6 L, Glucose 158 H, Calcium 8.4 L, Phosphorus 4.5, Albumin 1.7 L 02/18/19 06:47: POC Glucose 117 H 02/18/19 10:10: Fluid Source PERITONEAL FLUID, Fluid Color COLORLESS, Fluid Appearance CLEAR, Fluid WBC 0.463, Fluid RBC 10, Fluid Tot Cell Count 0.466 H, Fld Polynuclear WBCs # 0.391, Fld Polynuclear WBCs % 84.4, Fluid Mononuclear WBCs 0.072, Fld Mononuclear WBCs % 15.6, Fluid Neutrophils 80, Fluid Lymphocytes 11, Fluid Monocytes 9, Fl Pathologist Comment May follow, Fluid Comment 2 SEE COMMENT Current Medications Acetaminophen (Tylenol) 650 mg PO Q6H PRN PRN PRN Reason: Pain Score 1-3/Temp > 100.7 F Last Admin: 02/15/19 12:29 Dose: 650 mg Documented by: Aspirin (Ecotrin) 81 mg PO DAILY@0800 [facility] Last Admin: 02/18/19 08:23 Dose: 81 mg Documented by: Bupropion HCl (Wellbutrin Xl) 300 mg PO DAILY [facility] Last Admin: 02/18/19 11:20 Dose: 300 mg Documented by: Dextrose (D50w Syringe) 0 gm IV X1 PRN; Protocol PRN Reason: Hypoglycemia Emollient Ointment (Eucerin Intensive Repair) 1 applic TOPICAL 4X/DAY PRN PRN; Protocol PRN Reason: DRY SKIN Glucagon () 1 mg IM .X1 PRN PRN Reason: Hypoglycemia Guaifenesin (Robitussin) 20 ml PO Q4H PRN PRN PRN Reason: COUGH Last Admin: 02/12/19 23:09 Dose: 20 ml Documented by: Levofloxacin (Levaquin Iv) 500 mg in 100 mls @ 100 mls/hr IV Q48 MAGGIE Last Infusion: 02/17/19 12:07 Dose: Infused Documented by: Sodium Chloride () 250 mls @ 15 mls/hr IV .[id number] PRN PRN Reason: Saline Flush Last Infusion: 02/17/19 12:20 Dose: Infused Documented by: Insulin Human Lispro (Humalog Kwikpen (Bkc)) 0 unit SC ACHS [facility]; Protocol Last Admin: 02/18/19 06:54 Dose: Not Given Documented by: Lactic Acid (Lac-Hydrin, Amlactin) 1 applic TOPICAL TID [facility]; Protocol Last Admin: 02/18/19 06:53 Dose: 1 applicatio Documented by: Melatonin (Melatonin) 3 mg PO QHS PRN PRN PRN Reason: INSOMNIA Last Admin: 02/12/19 23:07 Dose: 3 mg Documented by: Metoclopramide HCl (Metoclopramide Hcl) 5 mg PO TIDAC [facility] Last Admin: 02/18/19 11:21 Dose: 5 mg Documented by: Nortriptyline HCl (Pamelor) 50 mg PO QHS [facility] Last Admin: 02/17/19 22:26 Dose: 50 mg Documented by: Nutritional Formula (Lactose Free) (Ensure Clear) 120 ml PO TIDCM [facility] Last Admin: 02/18/19 08:23 Dose: Not Given Documented by: Nystatin (Mycostatin Powder) 1 applic TOPICAL BID [facility]; Protocol Last Admin: 02/18/19 09:10 Dose: 1 applicatio Documented by: Oxycodone HCl (Oxyir) 5 mg PO Q4H PRN PRN PRN Reason: Pain Score 4-10/10 Last Admin: 02/18/19 06:52 Dose: 5 mg Documented by: Pregabalin (Lyrica) 50 mg PO BID [facility] Last Admin: 02/18/19 09:13 Dose: 50 mg Documented by: Sodium Chloride () 10 - 40 ml IV UD PRN PRN Reason: SALINE FLUSH Last Admin: 02/17/19 12:07 Dose: 10 ml Documented by: Venlafaxine HCl (Effexor Xr) 150 mg PO DAILY [facility] Last Admin: 02/18/19 11:20 Dose: 150 mg Documented by: Medical Necessity - Tobacco Use Smoking Status: Never smoker Assessment/Plan All Active Problems (Last Reviewed 02/12/19 @ 20:40 by Virgil Murray DO) Calciphylaxis (Acute) Lower extremity weakness (Acute) Generalized weakness (Acute) Gastroparesis (Acute) Syncope (Acute) 1. ESRD continue CCPD 4.25% and 2.5% bags for hyponatremia, 5 exchanges 2L fill volume over 10hrs. ( 4 exchanges 2.5L fill volume at home). 2. Anemia hgb stable 3. Gastroparesis tolerating diet well 4. HTN stable 5. Hx obstructive uropathy 6. Skin necrosis bilat thighs s/p debridement, wound vac. Await bx results r/o calciphylaxis. 7. Protein/giovanny malnutrition add protein supplements
[2019-02-18 12:55] LABS: Bedside Glucose 133 mg/dL (70-110)
[2019-02-18] MEDS: Ensure Clear 120 ML Liquid PO (12:59)
[2019-02-18 13:05] VITALS: BP 108/52; PULSE 93; RESP 18; TEMP 36.5; O2SAT 97
--- NOTE | 2019-02-18 13:47 | CASEMGMT ---
Addendum entered by Josefina Rose 02/18/19 15:37: RAIZA updated pt that this worker has tried every facility in [place] and [facility] is the only remaining facility that hasn't got back to this worker yet. RAIZA updated pt that all other facilities in [place] are not able to accept pt due to peritoneal dialysis. RAIZA did update pt that [facility] in [place] is able to accept. Pt states that she would like to hear from [facility] before agreeing to go to [facility]. RAIZA did fax referral to [facility] as Kimberli informed this worker that they should be able to accommodate peritoneal dialysis. SW waiting for call back from [facility]. Addendum entered by Josefina Rose 02/18/19 14:22: RAIZA spoke with Bella who states [facility] [place] is not able to accept due to Yobany needing to sign a contract with [facility] [place] and the contract won't be complete until Saturday of next week. Bella confirms that [facility] is not able to accept pt either. RAIZA waiting for call back from [facility]. Original Note: Social Work Note SW received call from [place] with [facility] asking if pt has one or two wound vacs, if pt is positive for c-diff, if pt is able to bring in home peritoneal dialysis machine, size of the dressings and if the foam is black or green. RAIZA reviewed pt's chart and spoke with wound nurse and spoke with pt. Pt has one wound vac with wide connector that SNF will need to order. Pt is not in isolation so must not be positive for c-diff. Pt states her parents or brother would be able to bring in peritoneal dialysis. Wound nurse states pt has two medium size dressing and black foam. RAIZA spoke with Jaye at [facility] and updated her on above information. Jaye states she is able to accept pt today. RAIZA did call additional SNF in [place] to determine if they are able to accomodate pt's peritoneal dialysis. W, [facility] and [facility] are not able to accommodate peritoneal dialysis. SW waiting for call back from [facility] to determine if they are able to accept peritoneal dialysis. RAIZA waiting for call back from both [facility] [place] and [facility] in regards to peritoneal dialysis. Pt is able to discharge to [facility] if not facilities in [place] are able to accept. Plan: SNF pending acceptance Josefina Rose CLIENT DELIVERY MANAGER, COLLECTION SYSTEMS WORKER
--- NOTE | 2019-02-18 15:49 | CASEMGMT ---
Social Work Note SW received call from Kimberli at [facility] stating she is able to accept pt but can't admit pt today due to their staff needing to be trained. Kimberli states her staff will be calling [facility] to determine if they are able to come to [facility] and train their staff. Kimberli states she will let this worker know when she hears from [facility] if they are able to train their staff. SW in to update pt that [facility] is able to accept but will need to be trained through [facility] first. SW updated pt that it depends on when [facility] is able to get to [facility]. SW informed pt that if [facility] is not able to get to [facility] until next week then pt will need to go to a different [facility], like [place]. Pt states understanding states that her first choice is [facility] as it is in [place]. JULITO Ruth called Mary at [facility] to update. Mary states that pt could get peritoneal dialysis at [facility] tomorrow and then staff from [facility] could be at [facility] on Saturday to train their staff at [facility]. RAIZA placed a call to Kimberli at [facility] and updated her on that. Kimberli states she will speak with her DON and will also call [facility]. RAIZA placed a call to Jaye ([phone]) at [place] and updated her that pt is not discharging today and that this worker is still waiting to hear from SNF in [place] to determine if they are able to accept pt. Jaye states understanding. Plan: [facility] vs. [place]. Josefina Rose CHECKMAN, SUBSURFACE AUGMENTEE ELINT OPERATOR
[2019-02-18] MEDS: Acetaminophen 325 MG Tablet 650 MG PO (16:14)
--- NOTE | 2019-02-18 16:30 | PN_ITS ---
Patient Problems: Active and Suspected Problems (Last Reviewed 02/12/19 @ 20:40 by Virgil Murray DO) Gastroparesis (Acute) Subjective: Patient seen and examined. He had no complaints. Review of systems otherwise negative. Labs and vitals reviewed. She is awaiting placement. Vitals/I&O's: Vital Signs Temp Pulse Resp BP Pulse Ox 97.7 F L 93 18 108/52 L 97 02/18/19 13:05 02/18/19 13:05 02/18/19 13:05 02/18/19 13:05 02/18/19 13:05 Oxygen Flow Rate (L/min) 2 Oxygen Delivery Method Room Air Weight: 225 lb 1.471 oz Body Mass Index (BMI) 48.4 Finger Stick Blood Glucose 98 Intake and Output for Last 24 Hours 02/16/19 02/17/19 02/18/19 23:59 23:59 23:59 Intake Total 1990 540 / 540 400 / 400 Output Total 0 / 0 Balance 1990 510 / 510 400 / 400 General: Alert, Oriented x3, Cooperative, No apparent distress HEENT: Atraumatic, PERRLA, EOMI, Normocephalic Oral: Moist Mucosa Neck: Supple, No JVD, Negative Carotid Bruits Lungs: Clear to auscultation, Normal air movement, No rhonchi, No wheeze, No rales Cardiovascular: Regular rate, Regular Rhythm, Normal S1, Normal S2, No murmurs Abdomen: Bowel Sounds Present, Soft, Non Tender, Non-Distended, No Hepato- splenomegaly Extremities: No clubbing, No cyanosis, No edema, Capillary Refill Less than 3 Seconds Skin: - - has wound vac over surgical areas on both thighs Musculoskeletal: No Tenderness to Palpation of Joints or Extremities Lymphatic: No Cervical, Supraclavicular, or Inguinal Adenopathy Neurological: Cranial nerves II-XII grossly intact, Neuro grossly intact, Motor Exam 5/5 strength throughout Psych/Mental Status: Normal Affect, Appropriate, Alert and oriented to time, place, person, mood and affect Microbiology Past 72 Hours 02/16/19 Unknown Tissue - Leg, Left Gram Stain - Final 02/16/19 Unknown Tissue - Leg, Left Wound Culture - Preliminary No growth-Final to follow 02/16/19 Unknown Tissue - Leg, Left Anaerobic Culture - Preliminary No growth in 48 hours. 02/16/19 Unknown Tissue - Leg, Right Gram Stain - Final 02/16/19 Unknown Tissue - Leg, Right Wound Culture - Preliminary No growth-Final to follow 02/16/19 Unknown Tissue - Leg, Right Anaerobic Culture - Preliminary No growth in 48 hours. 02/13/19 13:40 Fluid - Peritoneal Gram Stain - Final 02/13/19 13:40 Fluid - Peritoneal Body Fluid Culture - Final Culture exhibits no growth. 02/13/19 13:40 Fluid - Peritoneal Anaerobic Culture - Preliminary No growth in 48 hours. Laboratory Results 02/17/19 16:53: POC Glucose 147 H 02/17/19 22:22: POC Glucose 334 H 02/18/19 05:44: WBC 7.5, RBC 4.16 L, Hgb 10.1 L, Hct 31.8 L, MCV 76.4 L, MCH 24.3 L, MCHC 31.8 L, RDW Std Deviation 47.9 H, RDW Coeff of Lu 17.3 H, Plt Count 237, MPV 9.0, Immature Gran % (Auto) 1.100 H, Neut % (Auto) 76.3 H, Lymph % (Auto) 10.3 L, [place] % (Auto) 10.2 H, Eos % (Auto) 1.7, Baso % (Auto) 0.4, Absolute Neuts (auto) 5.7, Absolute Lymphs (auto) 0.77 L, Nucleated RBC % 0 02/18/19 05:44: Sodium 131 L, Potassium 3.4 L, Chloride 94 L, Carbon Dioxide 26.0, BUN 34 H, Creatinine 6.11 H, Estim Creat Clear Calc 8.96, Est GFR (MDRD) Af Amer 10 L, Est GFR (MDRD) Non-Af 8 L, BUN/Creatinine Ratio 5.6 L, Glucose 158 H, Calcium 8.4 L, Phosphorus 4.5, Albumin 1.7 L 02/18/19 06:47: POC Glucose 117 H 02/18/19 10:10: Fluid Source PERITONEAL FLUID, Fluid Color COLORLESS, Fluid Appearance CLEAR, Fluid WBC 0.463, Fluid RBC 10, Fluid Tot Cell Count 0.466 H, Fld Polynuclear WBCs # 0.391, Fld Polynuclear WBCs % 84.4, Fluid Mononuclear WBCs 0.072, Fld Mononuclear WBCs % 15.6, Fluid Neutrophils 80, Fluid Lymphocytes 11, Fluid Monocytes 9, Fl Pathologist Comment May follow, Fluid Comment 2 SEE COMMENT 02/18/19 12:49: POC Glucose 133 H Current Medications Acetaminophen (Tylenol) 650 mg PO Q6H PRN PRN PRN Reason: Pain Score 1-3/Temp > 100.7 F Last Admin: 02/18/19 16:14 Dose: 650 mg Documented by: Aspirin (Ecotrin) 81 mg PO DAILY@0800 [facility] Last Admin: 02/18/19 08:23 Dose: 81 mg Documented by: Bupropion HCl (Wellbutrin Xl) 300 mg PO DAILY [facility] Last Admin: 02/18/19 11:20 Dose: 300 mg Documented by: Dextrose (D50w Syringe) 0 gm IV X1 PRN; Protocol PRN Reason: Hypoglycemia Emollient Ointment (Eucerin Intensive Repair) 1 applic TOPICAL 4X/DAY PRN PRN; Protocol PRN Reason: DRY SKIN Glucagon () 1 mg IM .X1 PRN PRN Reason: Hypoglycemia Guaifenesin (Robitussin) 20 ml PO Q4H PRN PRN PRN Reason: COUGH Last Admin: 02/12/19 23:09 Dose: 20 ml Documented by: Levofloxacin (Levaquin Iv) 500 mg in 100 mls @ 100 mls/hr IV Q48 MAGGIE Last Infusion: 02/17/19 12:07 Dose: Infused Documented by: Sodium Chloride () 250 mls @ 15 mls/hr IV .[id number] PRN PRN Reason: Saline Flush Last Infusion: 02/17/19 12:20 Dose: Infused Documented by: Insulin Human Lispro (Humalog Kwikpen (Bkc)) 0 unit SC ACHS [facility]; Protocol Last Admin: 02/18/19 12:57 Dose: Not Given Documented by: Lactic Acid (Lac-Hydrin, Amlactin) 1 applic TOPICAL TID [facility]; Protocol Last Admin: 02/18/19 12:58 Dose: 1 applicatio Documented by: Melatonin (Melatonin) 3 mg PO QHS PRN PRN PRN Reason: INSOMNIA Last Admin: 02/12/19 23:07 Dose: 3 mg Documented by: Metoclopramide HCl (Metoclopramide Hcl) 5 mg PO TIDAC [facility] Last Admin: 02/18/19 16:07 Dose: 5 mg Documented by: Nortriptyline HCl (Pamelor) 50 mg PO QHS [facility] Last Admin: 02/17/19 22:26 Dose: 50 mg Documented by: Nutritional Formula (Lactose Free) (Ensure Clear) 120 ml PO TIDCM [facility] Last Admin: 02/18/19 12:59 Dose: 120 ml Documented by: Nystatin (Mycostatin Powder) 1 applic TOPICAL BID [facility]; Protocol Last Admin: 02/18/19 09:10 Dose: 1 applicatio Documented by: Oxycodone HCl (Oxyir) 5 mg PO Q4H PRN PRN PRN Reason: Pain Score 4-10/10 Last Admin: 02/18/19 16:14 Dose: 5 mg Documented by: Pregabalin (Lyrica) 50 mg PO BID [facility] Last Admin: 02/18/19 09:13 Dose: 50 mg Documented by: Sodium Chloride () 10 - 40 ml IV UD PRN PRN Reason: SALINE FLUSH Last Admin: 02/17/19 12:07 Dose: 10 ml Documented by: Venlafaxine HCl (Effexor Xr) 150 mg PO DAILY [facility] Last Admin: 02/18/19 11:20 Dose: 150 mg Documented by: STROKE Vital Signs/Narrative: Vital Signs Temp Pulse Resp BP Pulse Ox 02/18/19 13:05 97.7 F L 93 18 108/52 L 97 Medical Necessity - Tobacco Use Smoking Status: Never smoker Assessment/Plan All Active Problems (Last Reviewed 02/12/19 @ 20:40 by Virgil Murray DO) Calciphylaxis (Acute) Lower extremity weakness (Acute) Generalized weakness (Acute) Gastroparesis (Acute) Syncope (Acute) 1. Acute gastroparesis: resolved. on reglan 5mg tid 2. Bilateral thigh skin necrosis * s/p incision and drainage and excisional debridement. Today is POD 1 * has wound vac on both thighs. * preliminary wound cultures are negative; preliminary gram stain showed 2+ wbc * on IV levaquin q48 * plastic surgery on board * PT/OT 3. Hyponatremia: * Sodium today is 131. This is chronic. Will monitor 4. Hypokalemia: potassium is 3.4 today. Will replace and monitor 5. Hypomagnesemia: Resolved. 6. ESRD: On peritoneal dialysis. Unable to have hemodialysis on account of steal syndrome with AV fistula. Nephrology on board 7. Type 2 diabetes mellitus: Diet-controlled: On insulin sliding scale. Accu- Cheks before meals at bedtime. 8. Anxiety and depression: On Effexor nortriptyline as well as wellbutrin DVT Prophylaxis: heparin Disposition: Awaiting placement. Code Visit Inpatient E&M: 66653 Subs Hosp L2
[2019-02-18 17:16] LABS: Bedside Glucose 133 mg/dL (70-110)
--- NOTE | 2019-02-18 17:57 | PN.SURG_ITS ---
Patient Problems: Active and Suspected Problems (Last Reviewed 02/12/19 @ 20:40 by Virgil Murray DO) Gastroparesis (Acute) Subjective: Postop #2 Patient is resting comfortably. - Physical Exam Vitals/I&O's: Vital Signs Temp Pulse Resp BP Pulse Ox 97.7 F L 93 18 108/52 L 97 02/18/19 13:05 02/18/19 13:05 02/18/19 13:05 02/18/19 13:05 02/18/19 13:05 Oxygen Flow Rate (L/min) 2 Oxygen Delivery Method Room Air Weight: 225 lb 1.471 oz Body Mass Index (BMI) 48.4 Finger Stick Blood Glucose 98 Intake and Output for Last 24 Hours 02/16/19 02/17/19 02/18/19 23:59 23:59 23:59 Intake Total 1990 540 / 540 400 / 400 Output Total 0 / 0 Balance 1990 510 / 510 400 / 400 General: Alert, Oriented x3 HEENT: PERRLA, EOMI Oral: Moist Mucosa Neck: Supple Abdomen: Soft, Non-Distended Skin: Ulcer/ Wound - bilateral thigh wounds are stable. VAC in place. Minimal drainage in the canister. Neurological: Cranial nerves II-XII grossly intact Psych/Mental Status: Normal Affect, Appropriate Microbiology Past 72 Hours 02/16/19 Unknown Tissue - Leg, Left Gram Stain - Final 02/16/19 Unknown Tissue - Leg, Left Wound Culture - Preliminary No growth-Final to follow 02/16/19 Unknown Tissue - Leg, Left Anaerobic Culture - Preliminary No growth in 48 hours. 02/16/19 Unknown Tissue - Leg, Right Gram Stain - Final 02/16/19 Unknown Tissue - Leg, Right Wound Culture - Preliminary No growth-Final to follow 02/16/19 Unknown Tissue - Leg, Right Anaerobic Culture - Preliminary No growth in 48 hours. 02/13/19 13:40 Fluid - Peritoneal Gram Stain - Final 02/13/19 13:40 Fluid - Peritoneal Body Fluid Culture - Final Culture exhibits no growth. 02/13/19 13:40 Fluid - Peritoneal Anaerobic Culture - Preliminary No growth in 48 hours. Laboratory Results 02/17/19 22:22: POC Glucose 334 H 02/18/19 05:44: WBC 7.5, RBC 4.16 L, Hgb 10.1 L, Hct 31.8 L, MCV 76.4 L, MCH 24.3 L, MCHC 31.8 L, RDW Std Deviation 47.9 H, RDW Coeff of Lu 17.3 H, Plt Count 237, MPV 9.0, Immature Gran % (Auto) 1.100 H, Neut % (Auto) 76.3 H, Lymph % (Auto) 10.3 L, [place] % (Auto) 10.2 H, Eos % (Auto) 1.7, Baso % (Auto) 0.4, Absolute Neuts (auto) 5.7, Absolute Lymphs (auto) 0.77 L, Nucleated RBC % 0 02/18/19 05:44: Sodium 131 L, Potassium 3.4 L, Chloride 94 L, Carbon Dioxide 26.0, BUN 34 H, Creatinine 6.11 H, Estim Creat Clear Calc 8.96, Est GFR (MDRD) Af Amer 10 L, Est GFR (MDRD) Non-Af 8 L, BUN/Creatinine Ratio 5.6 L, Glucose 158 H, Calcium 8.4 L, Phosphorus 4.5, Albumin 1.7 L 02/18/19 06:47: POC Glucose 117 H 02/18/19 10:10: Fluid Source PERITONEAL FLUID, Fluid Color COLORLESS, Fluid Appearance CLEAR, Fluid WBC 0.463, Fluid RBC 10, Fluid Tot Cell Count 0.466 H, Fld Polynuclear WBCs # 0.391, Fld Polynuclear WBCs % 84.4, Fluid Mononuclear WBCs 0.072, Fld Mononuclear WBCs % 15.6, Fluid Neutrophils 80, Fluid Lymphocytes 11, Fluid Monocytes 9, Fl Pathologist Comment May follow, Fluid Comment 2 SEE COMMENT 02/18/19 12:49: POC Glucose 133 H 02/18/19 17:12: POC Glucose 133 H Current Medications Acetaminophen (Tylenol) 650 mg PO Q6H PRN PRN PRN Reason: Pain Score 1-3/Temp > 100.7 F Last Admin: 02/18/19 16:14 Dose: 650 mg Documented by: Aspirin (Ecotrin) 81 mg PO DAILY@0800 [facility] Last Admin: 02/18/19 08:23 Dose: 81 mg Documented by: Bupropion HCl (Wellbutrin Xl) 300 mg PO DAILY [facility] Last Admin: 02/18/19 11:20 Dose: 300 mg Documented by: Dextrose (D50w Syringe) 0 gm IV X1 PRN; Protocol PRN Reason: Hypoglycemia Emollient Ointment (Eucerin Intensive Repair) 1 applic TOPICAL 4X/DAY PRN PRN; Protocol PRN Reason: DRY SKIN Glucagon () 1 mg IM .X1 PRN PRN Reason: Hypoglycemia Guaifenesin (Robitussin) 20 ml PO Q4H PRN PRN PRN Reason: COUGH Last Admin: 02/12/19 23:09 Dose: 20 ml Documented by: Heparin Sodium (Porcine) (Heparin Na) 5,000 unit SC Q8 [facility] Levofloxacin (Levaquin Iv) 500 mg in 100 mls @ 100 mls/hr IV Q48 [facility] Last Infusion: 02/17/19 12:07 Dose: Infused Documented by: Sodium Chloride () 250 mls @ 15 mls/hr IV .[id number] PRN PRN Reason: Saline Flush Last Infusion: 02/17/19 12:20 Dose: Infused Documented by: Insulin Human Lispro (Humalog Kwikpen (Bkc)) 0 unit SC ACHS [facility]; Protocol Last Admin: 02/18/19 12:57 Dose: Not Given Documented by: Lactic Acid (Lac-Hydrin, Amlactin) 1 applic TOPICAL TID [facility]; Protocol Last Admin: 02/18/19 12:58 Dose: 1 applicatio Documented by: Melatonin (Melatonin) 3 mg PO QHS PRN PRN PRN Reason: INSOMNIA Last Admin: 02/12/19 23:07 Dose: 3 mg Documented by: Metoclopramide HCl (Metoclopramide Hcl) 5 mg PO TIDAC [facility] Last Admin: 02/18/19 16:07 Dose: 5 mg Documented by: Nortriptyline HCl (Pamelor) 50 mg PO QHS [facility] Last Admin: 02/17/19 22:26 Dose: 50 mg Documented by: Nutritional Formula (Lactose Free) (Ensure Clear) 120 ml PO TIDCM [facility] Last Admin: 02/18/19 12:59 Dose: 120 ml Documented by: Nystatin (Mycostatin Powder) 1 applic TOPICAL BID [facility]; Protocol Last Admin: 02/18/19 09:10 Dose: 1 applicatio Documented by: Oxycodone HCl (Oxyir) 5 mg PO Q4H PRN PRN PRN Reason: Pain Score 4-10/10 Last Admin: 02/18/19 16:14 Dose: 5 mg Documented by: Pregabalin (Lyrica) 50 mg PO BID [facility] Last Admin: 02/18/19 09:13 Dose: 50 mg Documented by: Sodium Chloride () 10 - 40 ml IV UD PRN PRN Reason: SALINE FLUSH Last Admin: 02/17/19 12:07 Dose: 10 ml Documented by: Venlafaxine HCl (Effexor Xr) 150 mg PO DAILY [facility] Last Admin: 02/18/19 11:20 Dose: 150 mg Documented by: Medical Necessity - Tobacco Use Smoking Status: Never smoker Assessment/Plan All Active Problems (Last Reviewed 02/12/19 @ 20:40 by Virgil Murray DO) Calciphylaxis (Acute) Lower extremity weakness (Acute) Generalized weakness (Acute) Gastroparesis (Acute) Syncope (Acute) 1. 14 cm necrotic wound left proximal lateral thigh with necrotizing soft tissue infection. 2. 19 cm necrotic wound right proximal anterolateral thigh with necrotizing soft tissue infection. 3. End stage renal disease on dialysis. 4. Peritoneal dialysis. 5. Painful calciphylaxis. 6. Diabetes mellitus. 7. s/p surgical preparation left proximal lateral thigh with incision and drainage and excisional debridement necrotizing soft tissue infection with skin necrosis (165 cm2) and surgical preparation right proximal anterolateral thigh with incision and drainage and excisional debridement necrotizing soft tissue infection with skin necrosis (252 cm2). Thigh wounds are stable. VAC in place. Minimal drainage in the canister. VAC applied today with some discomfort. Operative cultures are negative thus far. Continue Levaquin. Anticipate increased metabolic demands from the wounds and the infection. Prealbumin was 4.8. Encourage nutritional supplementation with protein to help the healing process. In renal failure patients on dialysis, when necrotic skin infections start developing, calciphylaxis can be present. Sometimes this is progressive in other areas on the extremities and the trunk which can also develop necrotic skin infections. Because of the severe pain present in these wounds and if multiple wounds develop, these patients sometimes need to go to a Burn Center for more aggressive wound care with a whirlpool and the need for much higher doses of IV analgesia. After discharge can followup at the Wound Center.
[2019-02-18 19:22] VITALS: BP 92/50; PULSE 102; RESP 18; TEMP 36.4; O2SAT 97
[2019-02-18 21:25] VITALS: BP 92/49; PULSE 103; RESP 16; TEMP 36.4; O2SAT 100
--- NOTE | 2019-02-18 21:46 | DIALYSIS ---
Report from primary Gertrudis VILA CCPD initiated using aseptic technique. Initial order of 2.5% and 4.25% PD solution changed to 2.5% only due to low BP. Initial effluent drainage of 4 ml. LLQ PD catheter dressing dry and intact. Report given to primary Gertrudis VILA.
[2019-02-18] MEDS: Nortriptyline 25 MG Capsule 50 MG PO (22:48)
[2019-02-18] MEDS: Heparin Injection (Vial) 5,000 UNIT/ML VIAL 5000 UNIT SC (22:52)
[2019-02-19 00:01] LABS: Bedside Glucose 93 mg/dL (70-110)
[2019-02-19] MEDS: 0.9% Saline Lock 10 ML Syringe IV (00:37)
[2019-02-19] MEDS: Ondansetron 4 MG/2 ML Vial IV (00:37)
[2019-02-19 03:00] VITALS: BP 130/48; PULSE 98; RESP 18; TEMP 37.7; O2SAT 94
[2019-02-19] MEDS: Ammonium Lactate 225 gm Bottle 1 APPLIC TOPICAL ×3 (06:44→22:01)
[2019-02-19] MEDS: Heparin Injection (Vial) 5,000 UNIT/ML VIAL 5000 UNIT SC ×3 (06:44→22:01)
[2019-02-19] MEDS: Metoclopramide 5 MG TABLET PO ×3 (06:45→17:57)
[2019-02-19 06:56] LABS: Bedside Glucose 93 mg/dL (70-110)
[2019-02-19 07:57] LABS: Absolute Lymphocyte Count 0.74 X10^3/uL (0.83-4.51); Absolute Neutrophil Count 5.3 X10^3/uL (2.0-7.7); Basophil# 0.02 X10^3/uL; Basophil% 0.3 % (0-1); Eosinophil# 0.13 X10^3/uL; Eosinophils% 1.9 % (0-5); Hemoglobin 8.6 g/dL (12.0-15.0); Lymphocyte # 0.74 X10^3/ul (4.0); Lymphocyte % 10.6 % (19-41); Mean Corp Hgb Conc 31.9 g/dL (32-36); Mean Corpuscular Hgb 24.4 pg (27.0-32.0); Mean Corpuscular Volume 76.7 fL (81-99); Mean Platelet Vol. 9.5 fl (6.2-12.0); Monocyte# 0.69 X10^3/uL; Monocyte% 9.9 % (0-10); NRBC Flagged by Analyzer 0 % (0-5); Neutrophil % 76.2 % (47-70); Platelet Count 230 K/mm3 (150-450); RBC Distribution Width CV 17.4 % (11.6-14.6); RBC Distribution Width SD 48.5 fl (35.1-43.9); Red Blood Count 3.52 M/mm3 (4.2-5.4)
[2019-02-19 08:14] LABS: Albumin, Serum 1.5 g/dL (3.2-5.0); BUN 41 mg/dL (7-18); BUN/Creat Ratio 5.9 RATIO (10-20); Calcium,Total 7.9 mg/dL (8.5-10.1); Chloride 94 mmol/L (98-107); Creatinine, Serum 6.97 mg/dL (0.55-1.02); EST Glomerular Filtration Rate 7 mL/min (>60); Est Glom Filt Rate - Afr Amer 8 mL/min (>60); Estimated Creatinine Clearance 7.85 ml/min; Glucose 83 mg/dL (74-106); Phosphorus 4.3 mg/dL (2.5-4.9); Potassium 3.9 mmol/L (3.5-5.1); Sodium Level 131 mmol/L (136-145)
[2019-02-19] MEDS: Aspirin E.C. 81 MG Tablet PO (08:28)
--- NOTE | 2019-02-19 09:08 | CASEMGMT ---
Addendum entered by Josefina Rose 02/19/19 14:09: RAIZA spoke with Kimberli at [facility]. Kimberli states they just received contract from [facility] and now their chief operations person needs to sign the contract. Kimberli states that their staff is not still trained on peritoneal either. RAIZA asked Kimberli if their chief operation person is able to sign contract today and can confirm with [facility] that they can train their staff tomorrow like originally planned through [employer]. Kimberli states she is not sure when the contract will get signed. RAIZA again informed Kimberli that medically pt is ready for discharge today so if [facility] is not able to accept pt today then pt will be going to different SNF. Kimberli states she will let this worker know ROMEO if she knows if pt can discharge to [facility] today. SW in to speak with pt. RAIZA updated pt that it is looking like [facility] won't be able to accept pt today. RAIZA informed pt that discharge is in for pt and pt is able to discharge to [facility] today. RAIZA asked pt about transportation. Pt states that her parents should be able to transport pt but is not sure if they will want to travel to [place]. RAIZA informed pt that at this time [facility] is the only SNF that is able to accept pt. RAIZA informed pt that if her parents are not able to transport, transportation could be arranged but reminded pt that her parents will need to take her peritoneal machine to [facility] regardless. Pt states she will be calling her parents. RAIZA informed pt that this worker will check back with her soon. Pt states understanding. RAIZA placed a call to Jaye at [facility] and updated her that it is looking like pt will be discharged to [facility] today. Jaye asked that Yobany be updated when pt is discharged and to what facility. Plan: Likely [facility] today unless [facility] is able to accept pt today Addendum entered by Josefina Rose 02/19/19 13:18: RAIZA placed a call to Kimberli at [facility] and left message and asked for update with [facility]. RAIZA did inform Kimberli that medically pt is ready for discharge today and if [facility] is not able to sign contract today with [facility] then pt will be going to a different SNF. RAIZA waiting for call back. Original Note: Social Work Note RAIZA spoke with Kimberli at [facility]. Kimberli states her fleet administrator is working on contract with [employer]. Kimberli states she will need to speak with [employer] to determine when they will be signing the contract and then give this worker a call. RAIZA waiting for call from Kimberli to determine when the contract with [employer] will be signed. RAIZA to continue to follow. Plan: [facility] vs. [facility] Josefina Rose KNOWLEDGE ARCHITECT, GENERAL SURGEON
--- NOTE | 2019-02-19 09:10 | PN.RENAL_ITS ---
Patient Problems: Active and Suspected Problems (Last Reviewed 02/12/19 @ 20:40 by Virgil Murray DO) Gastroparesis (Acute) Subjective: no further NVD. Clear effluent, afebrile. - Physical Exam Vitals/I&O's: Vital Signs Temp Pulse Resp BP Pulse Ox 99.9 F H 98 18 130/48 H 94 02/19/19 03:00 02/19/19 03:00 02/19/19 03:00 02/19/19 03:00 02/19/19 03:00 Oxygen Flow Rate (L/min) 2 Oxygen Delivery Method Room Air Weight: 106.549 kg Body Mass Index (BMI) 48.4 Finger Stick Blood Glucose 98 Intake and Output for Last 24 Hours 02/17/19 02/18/19 02/19/19 23:59 23:59 23:59 Intake Total 540 / 540 400 / 400 Output Total 30 / 30 0 / 0 Balance 510 / 510 400 / 400 General: Alert, Oriented x3 Lungs: Clear to auscultation Cardiovascular: Regular rate Abdomen: Bowel Sounds Present, Soft, Non Tender, Non-Distended Extremities: No edema Skin: Ulcer/ Wound - wound vac Microbiology Past 72 Hours 02/13/19 13:40 Fluid - Peritoneal Gram Stain - Final 02/13/19 13:40 Fluid - Peritoneal Body Fluid Culture - Final Culture exhibits no growth. 02/13/19 13:40 Fluid - Peritoneal Anaerobic Culture - Final No growth in 5 days. 02/16/19 Unknown Tissue - Leg, Left Gram Stain - Final 02/16/19 Unknown Tissue - Leg, Left Wound Culture - Preliminary No growth-Final to follow 02/16/19 Unknown Tissue - Leg, Left Anaerobic Culture - Preliminary No growth in 48 hours. 02/16/19 Unknown Tissue - Leg, Right Gram Stain - Final 02/16/19 Unknown Tissue - Leg, Right Wound Culture - Preliminary No growth-Final to follow 02/16/19 Unknown Tissue - Leg, Right Anaerobic Culture - Preliminary No growth in 48 hours. Laboratory Results 02/18/19 10:10: Fluid Source PERITONEAL FLUID, Fluid Color COLORLESS, Fluid Appearance CLEAR, Fluid WBC 0.463, Fluid RBC 10, Fluid Tot Cell Count 0.466 H, Fld Polynuclear WBCs # 0.391, Fld Polynuclear WBCs % 84.4, Fluid Mononuclear WBCs 0.072, Fld Mononuclear WBCs % 15.6, Fluid Neutrophils 80, Fluid Lymphocytes 11, Fluid Monocytes 9, Fl Pathologist Comment May follow, Fluid Comment 2 SEE COMMENT 02/18/19 12:49: POC Glucose 133 H 02/18/19 17:12: POC Glucose 133 H 02/18/19 21:41: POC Glucose 93 02/19/19 06:42: WBC 7.0, RBC 3.52 L, Hgb 8.6 L, Hct 27.0 L, MCV 76.7 L, MCH 24.4 L, MCHC 31.9 L, RDW Std Deviation 48.5 H, RDW Coeff of Lu 17.4 H, Plt Count 230, MPV 9.5, Immature Gran % (Auto) 1.100 H, Neut % (Auto) 76.2 H, Lymph % (Auto) 10.6 L, [place] % (Auto) 9.9, Eos % (Auto) 1.9, Baso % (Auto) 0.3, Absolute Neuts (auto) 5.3, Absolute Lymphs (auto) 0.74 L, Nucleated RBC % 0 02/19/19 06:42: Sodium 131 L, Potassium 3.9, Chloride 94 L, Carbon Dioxide 28.0, BUN 41 H, Creatinine 6.97 H, Estim Creat Clear Calc 7.85, Est GFR (MDRD) Af Amer 8 L, Est GFR (MDRD) Non-Af 7 L, BUN/Creatinine Ratio 5.9 L, Glucose 83, Calcium 7.9 L, Phosphorus 4.3, Albumin 1.5 L 02/19/19 06:43: POC Glucose 93 Current Medications Acetaminophen (Tylenol) 650 mg PO Q6H PRN PRN PRN Reason: Pain Score 1-3/Temp > 100.7 F Last Admin: 02/18/19 16:14 Dose: 650 mg Documented by: Aspirin (Ecotrin) 81 mg PO DAILY@0800 [facility] Last Admin: 02/19/19 08:28 Dose: 81 mg Documented by: Bupropion HCl (Wellbutrin Xl) 300 mg PO DAILY [facility] Last Admin: 02/18/19 11:20 Dose: 300 mg Documented by: Dextrose (D50w Syringe) 0 gm IV X1 PRN; Protocol PRN Reason: Hypoglycemia Emollient Ointment (Eucerin Intensive Repair) 1 applic TOPICAL 4X/DAY PRN PRN; Protocol PRN Reason: DRY SKIN Glucagon () 1 mg IM .X1 PRN PRN Reason: Hypoglycemia Guaifenesin (Robitussin) 20 ml PO Q4H PRN PRN PRN Reason: COUGH Last Admin: 02/12/19 23:09 Dose: 20 ml Documented by: Heparin Sodium (Porcine) (Heparin Na) 5,000 unit SC Q8 [facility] Last Admin: 02/19/19 06:44 Dose: 5,000 unit Documented by: Hydralazine HCl (Apresoline Iv) 10 mg IV Q4H PRN PRN PRN Reason: SBP > 160 Levofloxacin (Levaquin Iv) 500 mg in 100 mls @ 100 mls/hr IV Q48 [facility] Last Infusion: 02/17/19 12:07 Dose: Infused Documented by: Sodium Chloride () 250 mls @ 15 mls/hr IV .[id number] PRN PRN Reason: Saline Flush Last Infusion: 02/17/19 12:20 Dose: Infused Documented by: Insulin Human Lispro (Humalog Kwikpen (Bkc)) 0 unit SC ACHS [facility]; Protocol Last Admin: 02/19/19 06:45 Dose: Not Given Documented by: Lactic Acid (Lac-Hydrin, Amlactin) 1 applic TOPICAL TID [facility]; Protocol Last Admin: 02/19/19 06:44 Dose: 1 applicatio Documented by: Melatonin (Melatonin) 3 mg PO QHS PRN PRN PRN Reason: INSOMNIA Last Admin: 02/12/19 23:07 Dose: 3 mg Documented by: Metoclopramide HCl (Metoclopramide Hcl) 5 mg PO TIDAC [facility] Last Admin: 02/19/19 06:45 Dose: 5 mg Documented by: Nortriptyline HCl (Pamelor) 50 mg PO QHS [facility] Last Admin: 02/18/19 22:48 Dose: 50 mg Documented by: Nutritional Formula (Lactose Free) (Ensure Clear) 120 ml PO TIDCM [facility] Last Admin: 02/19/19 08:27 Dose: Not Given Documented by: Nystatin (Mycostatin Powder) 1 applic TOPICAL BID [facility]; Protocol Last Admin: 02/18/19 22:46 Dose: 1 applicatio Documented by: Ondansetron HCl (Zofran) 4 mg IV Q8H PRN PRN PRN Reason: NAUSEA/VOMITING Last Admin: 02/19/19 00:37 Dose: 4 mg Documented by: Oxycodone HCl (Oxyir) 5 mg PO Q4H PRN PRN PRN Reason: Pain Score 4-10/10 Last Admin: 02/18/19 16:14 Dose: 5 mg Documented by: Pregabalin (Lyrica) 50 mg PO BID [facility] Last Admin: 02/18/19 22:52 Dose: 50 mg Documented by: Sodium Chloride () 10 - 40 ml IV UD PRN PRN Reason: SALINE FLUSH Last Admin: 02/19/19 00:37 Dose: 10 ml Documented by: Venlafaxine HCl (Effexor Xr) 150 mg PO DAILY [facility] Last Admin: 02/18/19 11:20 Dose: 150 mg Documented by: Medical Necessity - Tobacco Use Smoking Status: Never smoker Assessment/Plan All Active Problems (Last Reviewed 02/12/19 @ 20:40 by Virgil Murray DO) Necrotizing soft tissue infection (Acute) Open wound of both lower extremities with complication (Acute) Calciphylaxis (Acute) Lower extremity weakness (Acute) Generalized weakness (Acute) Gastroparesis (Acute) Syncope (Acute) 1. ESRD continue CCPD 2.5% 5 exchanges 2L fill volume over 10hrs. 2. Anemia epo x1 3. Gastroparesis tolerating diet well 4. HTN stable 5. Hx obstructive uropathy 6. Skin necrosis bilat thighs s/p debridement, wound vac. prelim bx results negative for calciphylaxis. 7. Protein/giovanny malnutrition add protein supplements
[2019-02-19 09:42] VITALS: BP 134/104; PULSE 64; RESP 16; TEMP 37.1; O2SAT 97
[2019-02-19] MEDS: oxyCODONE 5 MG Tablet PO ×2 (09:46→14:39)
[2019-02-19] MEDS: Acetaminophen 325 MG Tablet 650 MG PO (09:47)
[2019-02-19] MEDS: buPROPion (XL) 300 MG TABLET.XL PO (09:47)
[2019-02-19] MEDS: Venlafaxine XR 150 MG Capsule PO (09:48)
[2019-02-19] MEDS: Pregabalin 50 MG Capsule PO ×2 (11:52→23:07)
[2019-02-19] MEDS: Epoetin Alfa epbx 10,000 UNITS/ML 10000 UNIT SC (12:01)
[2019-02-19 12:20] VITALS: BP 123/85; PULSE 83; RESP 18; TEMP 36.6; O2SAT 98
[2019-02-19 12:56] LABS: Bedside Glucose 107 mg/dL (70-110)
[2019-02-19] MEDS: Nystatin Powder 15gm Bottle 1 APPLIC TOPICAL ×2 (13:16→22:02)
[2019-02-19] MEDS: Nepro with Carbsteady 237 ML Liquid 120 ML PO ×2 (13:23→18:00)
[2019-02-19] MEDS: Lactulose 20 GM/30 ML UDC PO ×2 (13:23→18:56)
[2019-02-19] MEDS: levoFLOXacin 500 MG Tablet PO (13:23)
[2019-02-19] MEDS: Bisacodyl 5 MG Tablet 10 MG PO (13:24)
--- NOTE | 2019-02-19 13:41 | TREXTCAR_ITS ---
- Diet 02/16/19 16:54 Diet: Renal - Carb-Controlled Is pt able to select menu?: Yes - Routine Orders/Code Status Enema Type: Fleetz Enema Frequency: Daily PRN Suppository Type: Dulcolax 10mg Suppository Frequency: Daily PRN O2 Frequency: PRN Keep PO Greater than or Equal to (%): 90 Code Status: Full Code - Wound(s) L groin Wound Type: cannula intertrigo R lower outer groin Wound Type: cannula intertrigo R outer upper groin Wound Type: cannula intertrigo R inner groin 1 Wound Type: cannula intertrigo R inner groin 2 Wound Type: cannula intertrigo Mid L abdomen Wound Type: Burn left abdominal fold Wound Type: cluster of moisture related open areas Dressing Change: Dry Sterile Dressing right abdominal fold Wound Type: cluster of moisture related open areas Dressing Change: Dry Sterile Dressing BILATERAL THIGH Wound Type: Surgical Incision left thigh Wound Type: Surgical Incision Dressing Change: applied KCI wound VAC right thigh Wound Type: Surgical Incision Dressing Change: applied KCI wound VAC - Therapies Weight Bearing: Weight bearing as tolerated Physical Therapy: Eval and Treat Occupational Therapy: Eval and Treat - Allergies/Procedures Done in Hospital Allergies/Adverse Reactions: Allergies ciprofloxacin [From Cipro] Adverse Reaction (Verified 12/26/18 00:36) Vomiting contrast dye Allergy (Severe, Uncoded 12/26/18 00:36) Anaphylaxis Procedures: None - Type of Care/Length of Stay Estimated LOS: Convalescent Care Less Than 30 days Type of Care Needed: Skilled Rehab Potential: Good Prognosis: Good - Additional Orders/Day of Discharge Day of Discharge: 02/19/19 - Dietary and Speech Recommendations Dietitian Recommendations/Changes: Recommend diet change to CHO controlled, low sodium w/ fluid restriction as indicated. Recommend small frequent meals with foods/snacks low in fat and fiber. Protein restricted diet NOT indicated currently. Pt w/ high protein needs d/t wounds and peritoneal dialysis treatme nts. Recommend 1 packet Graeme BID for wound healing. Recommend referral to outpatient Nutrition Services for additional nutrition education and counseling. - Follow Up Care Primary Care Physician: Alan Goncalves MD [STAFF PHYSICIAN] - Melvi Eastman MD [Primary Care Provider] - Please Follow Up With: Melvi Eastman MD When: 1-2 weeks Please Follow Up With: Erick Cuevas MD When: 1-2 weeks Please Follow Up With: Betty Odonnell DO When: 1-2 weeks
--- NOTE | 2019-02-19 13:43 | PCM.DC.SUM ---
Discharge Date and Diagnosis - Problem List Patient Problems: Active and Suspected Problems (Last Reviewed 02/12/19 @ 20:40 by Virgil Murray DO) Gastroparesis (Acute) Date of Admission: 02/12/19 - Primary Discharge Diagnosis Active and Suspected Problems (Last Reviewed 02/12/19 @ 20:40 by Virgil Murray DO) Gastroparesis (Acute) - Secondary Discharge Diagnosis Chronic Problems (Last Reviewed 02/12/19 @ 20:40 by Virgil Murray DO) Skin necrosis (Chronic) bilateral thighs Patient on peritoneal dialysis (Chronic) ESRD (end stage renal disease) (Chronic) Debility (Chronic) Orthostatic hypotension (Chronic) Chronic renal failure, stage 4 (severe) (Chronic) Morbid obesity (Chronic) HTN (hypertension) (Chronic) Bilateral hydronephrosis (Chronic) Iron deficiency anemia (Chronic) Type II diabetes mellitus (Chronic) Coronary artery disease (Chronic) Chronic low back pain (Chronic) Hydroureter (Chronic) Bladder outlet obstruction (Chronic) Hospital Course and Treatment Consultations 02/12/19 22:25 Consult: Onc/Wound/curtain hemmer automatic Routine Comment: Operations: None Summary of Care Provided: The patient is a 43 year old F [] Patient Problems: Active and Suspected Problems (Last Reviewed 02/12/19 @ 20:40 by Virgil Murray DO) Gastroparesis (Acute) - Physical Exam Vitals/I&O's: Vital Signs Temp Pulse Resp BP Pulse Ox 98.7 F 64 16 134/104 H 97 02/19/19 09:42 02/19/19 09:42 02/19/19 09:42 02/19/19 09:42 02/19/19 09:42 Oxygen Flow Rate (L/min) 2 Oxygen Delivery Method Room Air Weight: 234 lb 14.4 oz Body Mass Index (BMI) 48.4 Finger Stick Blood Glucose 98 Intake and Output for Last 24 Hours 02/17/19 02/18/19 02/19/19 23:59 23:59 23:59 Intake Total 540 / 540 400 / 400 Output Total 30 / 30 0 / 0 Balance 510 / 510 400 / 400 Microbiology Past 72 Hours 02/16/19 Unknown Tissue - Leg, Right Gram Stain - Final 02/16/19 Unknown Tissue - Leg, Right Wound Culture - Final No growth aerobically. 02/16/19 Unknown Tissue - Leg, Right Anaerobic Culture - Preliminary No growth in 48 hours. 02/16/19 Unknown Tissue - Leg, Left Gram Stain - Final 02/16/19 Unknown Tissue - Leg, Left Wound Culture - Final No growth aerobically. 02/16/19 Unknown Tissue - Leg, Left Anaerobic Culture - Preliminary No growth in 48 hours. 02/13/19 13:40 Fluid - Peritoneal Gram Stain - Final 02/13/19 13:40 Fluid - Peritoneal Body Fluid Culture - Final Culture exhibits no growth. 02/13/19 13:40 Fluid - Peritoneal Anaerobic Culture - Final No growth in 5 days. Laboratory Results 02/18/19 17:12: POC Glucose 133 H 02/18/19 21:41: POC Glucose 93 02/19/19 06:42: WBC 7.0, RBC 3.52 L, Hgb 8.6 L, Hct 27.0 L, MCV 76.7 L, MCH 24.4 L, MCHC 31.9 L, RDW Std Deviation 48.5 H, RDW Coeff of Lu 17.4 H, Plt Count 230, MPV 9.5, Immature Gran % (Auto) 1.100 H, Neut % (Auto) 76.2 H, Lymph % (Auto) 10.6 L, [place] % (Auto) 9.9, Eos % (Auto) 1.9, Baso % (Auto) 0.3, Absolute Neuts (auto) 5.3, Absolute Lymphs (auto) 0.74 L, Nucleated RBC % 0 02/19/19 06:42: Sodium 131 L, Potassium 3.9, Chloride 94 L, Carbon Dioxide 28.0, BUN 41 H, Creatinine 6.97 H, Estim Creat Clear Calc 7.85, Est GFR (MDRD) Af Amer 8 L, Est GFR (MDRD) Non-Af 7 L, BUN/Creatinine Ratio 5.9 L, Glucose 83, Calcium 7.9 L, Phosphorus 4.3, Albumin 1.5 L 02/19/19 06:43: POC Glucose 93 02/19/19 12:47: POC Glucose 107 Current Medications Acetaminophen (Tylenol) 650 mg PO Q6H PRN PRN PRN Reason: Pain Score 1-3/Temp > 100.7 F Last Admin: 02/19/19 09:47 Dose: 650 mg Documented by: Aspirin (Ecotrin) 81 mg PO DAILY@0800 [facility] Last Admin: 02/19/19 08:28 Dose: 81 mg Documented by: Bupropion HCl (Wellbutrin Xl) 300 mg PO DAILY [facility] Last Admin: 02/19/19 09:47 Dose: 300 mg Documented by: Dextrose (D50w Syringe) 0 gm IV X1 PRN; Protocol PRN Reason: Hypoglycemia Emollient Ointment (Eucerin Intensive Repair) 1 applic TOPICAL 4X/DAY PRN PRN; Protocol PRN Reason: DRY SKIN Glucagon () 1 mg IM .X1 PRN PRN Reason: Hypoglycemia Guaifenesin (Robitussin) 20 ml PO Q4H PRN PRN PRN Reason: COUGH Last Admin: 02/12/19 23:09 Dose: 20 ml Documented by: Heparin Sodium (Porcine) (Heparin Na) 5,000 unit SC Q8 [facility] Last Admin: 02/19/19 06:44 Dose: 5,000 unit Documented by: Hydralazine HCl (Apresoline Iv) 10 mg IV Q4H PRN PRN PRN Reason: SBP > 160 Sodium Chloride () 250 mls @ 15 mls/hr IV .[id number] PRN PRN Reason: Saline Flush Last Infusion: 02/17/19 12:20 Dose: Infused Documented by: Insulin Human Lispro (Humalog Kwikpen (Bkc)) 0 unit SC ACHS [facility]; Protocol Last Admin: 02/19/19 13:13 Dose: Not Given Documented by: Lactic Acid (Lac-Hydrin, Amlactin) 1 applic TOPICAL TID [facility]; Protocol Last Admin: 02/19/19 06:44 Dose: 1 applicatio Documented by: Levofloxacin (Levaquin Tablet) 500 mg PO Q48@0600 [facility] Last Admin: 02/19/19 13:23 Dose: 500 mg Documented by: Melatonin (Melatonin) 3 mg PO QHS PRN PRN PRN Reason: INSOMNIA Last Admin: 02/12/19 23:07 Dose: 3 mg Documented by: Metoclopramide HCl (Metoclopramide Hcl) 5 mg PO TIDAC [facility] Last Admin: 02/19/19 13:16 Dose: 5 mg Documented by: Nortriptyline HCl (Pamelor) 50 mg PO QHS [facility] Last Admin: 02/18/19 22:48 Dose: 50 mg Documented by: Nystatin (Mycostatin Powder) 1 applic TOPICAL BID [facility]; Protocol Last Admin: 02/19/19 13:16 Dose: 1 applicatio Documented by: Ondansetron HCl (Zofran) 4 mg IV Q8H PRN PRN PRN Reason: NAUSEA/VOMITING Last Admin: 02/19/19 00:37 Dose: 4 mg Documented by: Oxycodone HCl (Oxyir) 5 mg PO Q4H PRN PRN PRN Reason: Pain Score 4-10/10 Last Admin: 02/19/19 09:46 Dose: 5 mg Documented by: Pregabalin (Lyrica) 50 mg PO BID [facility] Last Admin: 02/19/19 11:52 Dose: 50 mg Documented by: Sodium Chloride () 10 - 40 ml IV UD PRN PRN Reason: SALINE FLUSH Last Admin: 02/19/19 00:37 Dose: 10 ml Documented by: Venlafaxine HCl (Effexor Xr) 150 mg PO DAILY [facility] Last Admin: 02/19/19 09:48 Dose: 150 mg Documented by: Home Medications: Medications to take at Discharge Ergocalciferol [Vitamin D] 50,000 unit PO WE 04/18/17 Venlafaxine XR [Effexor Xr] 150 mg PO DAILY 02/28/18 Aspirin E.C. [Ecotrin] 81 mg PO DAILY@0800 07/15/18 Nortriptyline HCl [Pamelor] 50 mg PO QHS 07/15/18 Pregabalin [Lyrica] 100 mg PO BID 07/15/18 Bupropion HCl [Bupropion Xl] 300 mg PO DAILY 09/22/18 cycloBENZAPRine HCl [Flexeril] 10 mg PO TID PRN #20 tab 12/26/18 Ondansetron [Zofran Odt] 4 mg PO Q8H PRN PRN #10 tab 02/12/19 Oxycodone HCl/Acetaminophen [Percocet 5-325 mg Tablet] 1 ea PO Q6H PRN PRN 02/12/19 levoFLOXacin tablet [Levaquin tablet] 500 mg PO Q48@0600 #5 tab 02/19/19 Following Prescrptions Were Given to Patient: levoFLOXacin tablet [Levaquin tablet] 500 mg PO Q48@0600 #5 tab Prescription Printed Ondansetron [Zofran Odt] 4 mg PO Q8H PRN PRN #10 tab PRN Reason: Nausea Prescription Printed Primary Care Physician: Alan Goncalves MD [STAFF PHYSICIAN] - Melvi Eastman MD [Primary Care Provider] - Please Follow Up With: Melvi Eastman MD When: 1-2 weeks Please Follow Up With: Erick Cuevas MD When: 1-2 weeks Please Follow Up With: Betty Odonnell DO When: 1-2 weeks Patient Instructions: DIET, Vomiting or Diarrhea [6yr-Adult] Medical Necessity - Tobacco Use Smoking Status: Never smoker
--- NOTE | 2019-02-19 14:12 | DIALYSIS ---
Arrived at 0915 to find [facility] machine alarming and pt was still in Drain 1 of 5. Pt did not complete tx overnight. Staff report they called [facility] promotions specialist and was told to reposition pt and clear alarm. However, pt was found still in 1st cycle drain. Pt is not real mobile, with help of day RN and staff pt was rolled from side to side, she sat at side of bed (was unable to stand), placed back to bed. Continues to not drain. There is no fibrin noted in effluent. effluent appears clear pale yellow. Dr Odonnell was notified. Tx was ended. Attempted to flush PD cath by use of alternating fill/drain using manually exchange bag. Over 1 hour period filled total of 600ml and with drain of 550ml clear pale yellow/no fibrin. Fills were rapid and without difficulty however draining remained extremely slow. Per order connected pt back to [facility] machine to try daytime exchange however in 30min pt only drained an additional 35ml after connected. Since patient potentially has 1600ml left from fill that did not drain overnight, did not override the drain phase and fill pt. Dr Odonnell was notified. Pt was again d/c from [facility] machine. Orders were given for bowel meds. Will attempt to connect to [facility] tonight after good bowel movement obtained.
--- NOTE | 2019-02-19 15:01 | CASEMGMT ---
Addendum entered by Josefina Rose 02/19/19 15:46: RAIZA received message from Kimberli at [facility] stating they did get the contract signed and sent back to [facility]. Kimberli states the plan is still for [facility] to come to [facility] tomorrow to train the staff. Kimberli states her understanding is that [facility] will be coming over in the afternoon to train and then transportation can be arranged after the training. Kimberli to confirm training time with [facility] and then let this worker know the training time. Plan: [facility] tomorrow if medically cleared Original Note: Social Work Note RN updated this worker that pt hasn't had peritoneal dialysis today as pt's peritoneal dialysis catheter was not working today. Pt is not able to discharge today. RAIZA placed a call to Kimberli at [facility] and updated her on this and to continue working on contract with [facility] and to call [facility] to determine if they are still able to go to [facility] to train their staff. RAIZA also placed a call to Jaye at [place] and left her a message informing her that pt is not able to discharge today. Josefina Rose DEPLOYMENT MANAGER, SOFTWARE QUALITY TEST ENGINEER
--- NOTE | 2019-02-19 16:42 | PN_ITS ---
Patient Problems: Active and Suspected Problems (Last Reviewed 02/12/19 @ 20:40 by Virgil Murray DO) Gastroparesis (Acute) Subjective: Patient seen and examined. She had no complaints. Review of systems is otherwise negative. Patient was unable to have peritoneal dialysis overnight and per nephrology, this may be due to constipation. Patient has been started on laxatives and enemas. Labs and vitals reviewed. Vitals/I&O's: Vital Signs Temp Pulse Resp BP Pulse Ox 97.8 F 83 18 123/85 H 98 02/19/19 12:20 02/19/19 12:20 02/19/19 12:20 02/19/19 12:20 02/19/19 12:20 Oxygen Flow Rate (L/min) 2 Oxygen Delivery Method Room Air Weight: 234 lb 14.4 oz Body Mass Index (BMI) 48.4 Finger Stick Blood Glucose 98 Intake and Output for Last 24 Hours 02/17/19 02/18/19 02/19/19 23:59 23:59 23:59 Intake Total 540 / 540 400 / 400 Output Total 30 / 30 0 / 0 Balance 510 / 510 400 / 400 General: Alert, Oriented x3, Cooperative, No apparent distress HEENT: Atraumatic, PERRLA, EOMI, Normocephalic Oral: Moist Mucosa Neck: Supple, No JVD, Negative Carotid Bruits Lungs: Clear to auscultation, Normal air movement, No rhonchi, No wheeze, No rales Cardiovascular: Regular rate, Regular Rhythm, Normal S1, Normal S2, No murmurs Abdomen: Bowel Sounds Present, Soft, Non Tender, Non-Distended, No Hepato- splenomegaly Extremities: No clubbing, No cyanosis, No edema, Capillary Refill Less than 3 Seconds Skin: - - has wound vac over surgical areas on both thighs Musculoskeletal: No Tenderness to Palpation of Joints or Extremities Lymphatic: No Cervical, Supraclavicular, or Inguinal Adenopathy Neurological: Cranial nerves II-XII grossly intact, Neuro grossly intact, Motor Exam 5/5 strength throughout Psych/Mental Status: Normal Affect, Appropriate, Alert and oriented to time, place, person, mood and affect Microbiology Past 72 Hours 02/16/19 Unknown Tissue - Leg, Right Gram Stain - Final 02/16/19 Unknown Tissue - Leg, Right Wound Culture - Final No growth aerobically. 02/16/19 Unknown Tissue - Leg, Right Anaerobic Culture - Preliminary No growth in 48 hours. 02/16/19 Unknown Tissue - Leg, Left Gram Stain - Final 02/16/19 Unknown Tissue - Leg, Left Wound Culture - Final No growth aerobically. 02/16/19 Unknown Tissue - Leg, Left Anaerobic Culture - Preliminary No growth in 48 hours. 02/13/19 13:40 Fluid - Peritoneal Gram Stain - Final 02/13/19 13:40 Fluid - Peritoneal Body Fluid Culture - Final Culture exhibits no growth. 02/13/19 13:40 Fluid - Peritoneal Anaerobic Culture - Final No growth in 5 days. Laboratory Results 02/18/19 17:12: POC Glucose 133 H 02/18/19 21:41: POC Glucose 93 02/19/19 06:42: WBC 7.0, RBC 3.52 L, Hgb 8.6 L, Hct 27.0 L, MCV 76.7 L, MCH 24.4 L, MCHC 31.9 L, RDW Std Deviation 48.5 H, RDW Coeff of Lu 17.4 H, Plt Count 230, MPV 9.5, Immature Gran % (Auto) 1.100 H, Neut % (Auto) 76.2 H, Lymph % (Auto) 10.6 L, [place] % (Auto) 9.9, Eos % (Auto) 1.9, Baso % (Auto) 0.3, Absolute Neuts (auto) 5.3, Absolute Lymphs (auto) 0.74 L, Nucleated RBC % 0 02/19/19 06:42: Sodium 131 L, Potassium 3.9, Chloride 94 L, Carbon Dioxide 28.0, BUN 41 H, Creatinine 6.97 H, Estim Creat Clear Calc 7.85, Est GFR (MDRD) Af Amer 8 L, Est GFR (MDRD) Non-Af 7 L, BUN/Creatinine Ratio 5.9 L, Glucose 83, Calcium 7.9 L, Phosphorus 4.3, Albumin 1.5 L 02/19/19 06:43: POC Glucose 93 02/19/19 12:47: POC Glucose 107 Current Medications Acetaminophen (Tylenol) 650 mg PO Q6H PRN PRN PRN Reason: Pain Score 1-3/Temp > 100.7 F Last Admin: 02/19/19 09:47 Dose: 650 mg Documented by: Aspirin (Ecotrin) 81 mg PO DAILY@0800 [facility] Last Admin: 02/19/19 08:28 Dose: 81 mg Documented by: Bupropion HCl (Wellbutrin Xl) 300 mg PO DAILY [facility] Last Admin: 02/19/19 09:47 Dose: 300 mg Documented by: Dextrose (D50w Syringe) 0 gm IV X1 PRN; Protocol PRN Reason: Hypoglycemia Emollient Ointment (Eucerin Intensive Repair) 1 applic TOPICAL 4X/DAY PRN PRN; Protocol PRN Reason: DRY SKIN Glucagon () 1 mg IM .X1 PRN PRN Reason: Hypoglycemia Guaifenesin (Robitussin) 20 ml PO Q4H PRN PRN PRN Reason: COUGH Last Admin: 02/12/19 23:09 Dose: 20 ml Documented by: Heparin Sodium (Porcine) (Heparin Na) 5,000 unit SC Q8 [facility] Last Admin: 02/19/19 14:27 Dose: 5,000 unit Documented by: Hydralazine HCl (Apresoline Iv) 10 mg IV Q4H PRN PRN PRN Reason: SBP > 160 Sodium Chloride () 250 mls @ 15 mls/hr IV .[id number] PRN PRN Reason: Saline Flush Last Infusion: 02/17/19 12:20 Dose: Infused Documented by: Insulin Human Lispro (Humalog Kwikpen (Bkc)) 0 unit SC ACHS [facility]; Protocol Last Admin: 02/19/19 13:13 Dose: Not Given Documented by: Lactic Acid (Lac-Hydrin, Amlactin) 1 applic TOPICAL TID [facility]; Protocol Last Admin: 02/19/19 14:27 Dose: 1 applicatio Documented by: Levofloxacin (Levaquin Tablet) 500 mg PO Q48@0600 [facility] Last Admin: 02/19/19 13:23 Dose: 500 mg Documented by: Melatonin (Melatonin) 3 mg PO QHS PRN PRN PRN Reason: INSOMNIA Last Admin: 02/12/19 23:07 Dose: 3 mg Documented by: Metoclopramide HCl (Metoclopramide Hcl) 5 mg PO TIDAC [facility] Last Admin: 02/19/19 13:16 Dose: 5 mg Documented by: Nortriptyline HCl (Pamelor) 50 mg PO QHS [facility] Last Admin: 02/18/19 22:48 Dose: 50 mg Documented by: Nystatin (Mycostatin Powder) 1 applic TOPICAL BID [facility]; Protocol Last Admin: 02/19/19 13:16 Dose: 1 applicatio Documented by: Ondansetron HCl (Zofran) 4 mg IV Q8H PRN PRN PRN Reason: NAUSEA/VOMITING Last Admin: 02/19/19 00:37 Dose: 4 mg Documented by: Oxycodone HCl (Oxyir) 5 mg PO Q4H PRN PRN PRN Reason: Pain Score 4-10/10 Last Admin: 02/19/19 14:39 Dose: 5 mg Documented by: Pregabalin (Lyrica) 50 mg PO BID [facility] Last Admin: 02/19/19 11:52 Dose: 50 mg Documented by: Sodium Chloride () 10 - 40 ml IV UD PRN PRN Reason: SALINE FLUSH Last Admin: 02/19/19 00:37 Dose: 10 ml Documented by: Venlafaxine HCl (Effexor Xr) 150 mg PO DAILY [facility] Last Admin: 02/19/19 09:48 Dose: 150 mg Documented by: Medical Necessity - Tobacco Use Smoking Status: Never smoker Assessment/Plan All Active Problems (Last Reviewed 02/12/19 @ 20:40 by Virgil Murray DO) Necrotizing soft tissue infection (Acute) Open wound of both lower extremities with complication (Acute) Calciphylaxis (Acute) Lower extremity weakness (Acute) Generalized weakness (Acute) Gastroparesis (Acute) Syncope (Acute) 1. Acute gastroparesis: resolved. on reglan 5mg tid 2. Bilateral thigh skin necrosis * s/p incision and drainage and excisional debridement. Today is POD 2 * has wound vac on both thighs. * preliminary wound cultures are negative; * IV levaquin switched to PO levaquin today * plastic surgery on board * PT/OT 3. Hyponatremia: * chronic. Will monitor 4. Hypokalemia: resolved 5. Hypomagnesemia: Resolved. 6. ESRD: * On peritoneal dialysis. Unable to have hemodialysis on account of steal syndrome with AV fistula. * Peritoneal dialysis did not work overnight and is still low this is likely due to constipation. Patient currently on laxatives and enemas to help move her bowels. * The [facility]way where she has been discharged to will have training about peritoneal dialysis tomorrow and then patient can be discharged. 7. Type 2 diabetes mellitus: Diet-controlled: On insulin sliding scale. Accu- Cheks before meals at bedtime. 8. Anxiety and depression: On Effexor nortriptyline as well as wellbutrin DVT Prophylaxis: heparin Disposition:for discharge tomorrow after staff in SNF trained about peritoneal dialysis Code Visit Inpatient E&M: 40828 Subs Hosp L2
[2019-02-19 17:26] LABS: Bedside Glucose 77 mg/dL (70-110)
[2019-02-19 18:11] VITALS: BP 154/88; PULSE 88; RESP 16; TEMP 36.5; O2SAT 97
--- NOTE | 2019-02-19 20:36 | NURSING ---
Transported to radiology by TECHNICAL SERVICES MANAGER via bed for KUB.
--- NOTE | 2019-02-19 20:47 | RAD_ITS ---
STUDY: X-RAY - ABDOMEN/PELVIS REASON FOR EXAM: Female, 43 years old. Patient. Gastroparesis. TECHNIQUE: Supine and left lateral decubitus views of the abdomen were performed COMPARISON: None. FINDINGS: Normal visualized lung bases. There is air within the stomach. There is distention of the transverse colon. Minimal air is seen in the descending and rectosigmoid region. There is minimal air in the rectum. There is no small bowel dilatation. Air-fluid levels are noted in the colon on decubitus imaging. There is no demonstrated free abdominal air. The visualized liver, spleen and kidneys are grossly normal in size and morphology. Normal soft tissue structures. Normal visualized osseous structures. RAD/Abd Decub and/or Erect(Portabl IMPRESSION: A distended colon with air-fluid levels. There is no small bowel distention noted. Electronically Signed: Olman Martinez DO at 21:41 EST Tel [phone], Service support ,
[2019-02-19 21:54] VITALS: BP 138/99; PULSE 88; RESP 14; TEMP 36.2; O2SAT 96
--- NOTE | 2019-02-19 22:19 | NURSING ---
Update given to engine installer about pt not having any results with her bowels. He will contact Dr. Odonnell.
[2019-02-19 22:36] LABS: Bedside Glucose 103 mg/dL (70-110)
[2019-02-19] MEDS: Nortriptyline 25 MG Capsule 50 MG PO (23:07)
[2019-02-20] VITALS (11 sets, daily range): BP systolic 112–143; BP diastolic 61–94; PULSE 77–109; RESP 13–19; TEMP 36.8–38.4; O2SAT 89–97
--- NOTE | 2019-02-20 00:26 | DIALYSIS ---
1 liter Dextrose 1.5% instilled manually w/ slow fill. No drain noted after ~30mins. Attempted to repositon w/ minimal success d/t pt size. Report given to hospital staff pharmacist at bedside.
[2019-02-20 06:45] LABS: Bedside Glucose 66 mg/dL (70-110)
[2019-02-20] MEDS: Ammonium Lactate 225 gm Bottle 1 APPLIC TOPICAL ×3 (06:45→20:43)
[2019-02-20] MEDS: Metoclopramide 5 MG TABLET PO (06:45)
[2019-02-20] MEDS: Heparin Injection (Vial) 5,000 UNIT/ML VIAL 5000 UNIT SC ×3 (06:45→20:40)
[2019-02-20 07:25] LABS: Bedside Glucose 76 mg/dL (70-110)
[2019-02-20 07:36] LABS: Anion Gap 12 (5-15); BUN 45 mg/dL (7-18); BUN/Creat Ratio 5.7 RATIO (10-20); Calcium,Total 7.9 mg/dL (8.5-10.1); Chloride 93 mmol/L (98-107); Creatinine, Serum 7.95 mg/dL (0.55-1.02); EST Glomerular Filtration Rate 6 mL/min (>60); Est Glom Filt Rate - Afr Amer 7 mL/min (>60); Estimated Creatinine Clearance 6.89 ml/min; Glucose 64 mg/dL (74-106); Sodium Level 130 mmol/L (136-145)
--- NOTE | 2019-02-20 08:33 | NURSING ---
Updated dialysis nurse on patient's mental status and very small bm that she had through the night. Also let her know patient's current creatinine level. PD did not work last night. She states she is going to call Dr. Odonnell and update and get orders.
[2019-02-20 08:45] LABS: Absolute Lymphocyte Count 0.55 X10^3/uL (0.83-4.51); Absolute Neutrophil Count 9.5 X10^3/uL (2.0-7.7); Basophil# 0.03 X10^3/uL; Basophil% 0.3 % (0-1); Differential Indicated SCAN CRITERIA MET; Eosinophil# 0.09 X10^3/uL; Eosinophils% 0.8 % (0-5); Hematocrit 27.7 % (37-47); Lymphocyte # 0.55 X10^3/ul (4.0); Mean Corp Hgb Conc 32.5 g/dL (32-36); Mean Corpuscular Hgb 24.8 pg (27.0-32.0); Mean Corpuscular Volume 76.3 fL (81-99); Mean Platelet Vol. 9.4 fl (6.2-12.0); Monocyte# 0.71 X10^3/uL; Monocyte% 6.4 % (0-10); NRBC Flagged by Analyzer 0 % (0-5); Neutrophil # 9.49 X10^3/uL (2.7-7.7); Neutrophil % 86.2 % (47-70); POSITIVE DIFFERENTIAL YES; Platelet Count 220 K/mm3 (150-450); RBC Distribution Width CV 17.7 % (11.6-14.6); RBC Distribution Width SD 48.9 fl (35.1-43.9); Red Blood Count 3.63 M/mm3 (4.2-5.4)
--- NOTE | 2019-02-20 09:46 | DIALYSIS ---
spoke with JULITO Dawkins regarding patient's mental status, lethargy, constipation; no PD treatment last night due to patient catheter not draining, minimal to no UF since 02/15; updated Dr. Odonnell noting BUN/Cr today, consult ordered for Dr. Patricia to evaluate PD catheter, PD catheter will not be evaluated until Saturday, patient ordered a tunneled dialysis catheter today, patient to have HD today after line placed, charge nurse Gabrielle and JULITO Dawkins notified to call dialysis unit when dialysis line placed
--- NOTE | 2019-02-20 09:59 | PCM.CONS.GEN ---
Reason for Consult Date of Consultation: 02/20/19 History of Present Illness: The patient is a 43 year old F with end-stage renal disease and status post peritoneal dialysis catheter. 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 Last 2 days per nursing they have been able to get fluid into the abdomen but however have not been able to get any fluid out. Patient require hemodialysis as her creatinine is 7.95. Currently patient is lethargic and falls asleep in the middle of conversations. Per patient's dad she has had multiple issues with dialysis catheters over the summer and has been going to [facility]. He states she has had 8 or 9 dialysis catheters in her neck and about for those have been temporary, he also thinks that the peritoneal catheter has also been changed out but is unsure when the last time that was. I do not currently have the records from [facility]. Past Medical History Past Medical History (Chronic Problems): Chronic Problems (Last Reviewed 02/12/19 @ 20:40 by Virgil Murray DO) Skin necrosis (Chronic) bilateral thighs Patient on peritoneal dialysis (Chronic) ESRD (end stage renal disease) (Chronic) Debility (Chronic) Orthostatic hypotension (Chronic) Chronic renal failure, stage 4 (severe) (Chronic) Morbid obesity (Chronic) HTN (hypertension) (Chronic) Bilateral hydronephrosis (Chronic) Iron deficiency anemia (Chronic) Type II diabetes mellitus (Chronic) Coronary artery disease (Chronic) Chronic low back pain (Chronic) Hydroureter (Chronic) Bladder outlet obstruction (Chronic) Medical History: Medical History (Last Reviewed 02/12/19 @ 20:40 by Virgil Murray DO) Chronic renal failure, stage 4 (severe) (Chronic) N18.4 Anemia D64.9 Anxiety and depression F41.8 Back problem M53.9 Carpal tunnel syndrome G56.00 Diabetes type 2, controlled E11.9 H/O nephrolithotomy with removal of calculi Z98.890, Z87.442 H/O transfusion of whole blood Z92.89 Headache R51 Heart disease I51.9 Hives L50.9 Kidney disease N28.9 Kidney failure N19 Kidney stone N20.0 Neuropathy G62.9 Recurrent infections B99.9 Seasonal allergies J30.2 UTI (urinary tract infection) N39.0 Vitamin deficiency E56.9 HTN (hypertension) I10 Allergies ciprofloxacin [From Cipro] Adverse Reaction (Verified 12/26/18 00:36) Vomiting contrast dye Allergy (Severe, Uncoded 12/26/18 00:36) Anaphylaxis Home Medications: Ambulatory Orders Medication Instructions Recorded Ergocalciferol [Vitamin D] 50,000 unit PO WE 04/18/17 Venlafaxine XR [Effexor Xr] 150 mg PO DAILY 02/28/18 Aspirin E.C. [Ecotrin] 81 mg PO DAILY@0800 07/15/18 Nortriptyline HCl [Pamelor] 50 mg PO QHS 07/15/18 Pregabalin [Lyrica] 100 mg PO BID 07/15/18 Bupropion HCl [Bupropion Xl] 300 mg PO DAILY 09/22/18 cycloBENZAPRine HCl [Flexeril] 10 mg PO TID PRN #20 tab 12/26/18 Ondansetron [Zofran Odt] 4 mg PO Q8H PRN PRN #10 tab 02/12/19 Oxycodone HCl/Acetaminophen 1 ea PO Q6H PRN PRN 02/12/19 [Percocet 5-325 mg Tablet] levoFLOXacin tablet [Levaquin 500 mg PO Q48@0600 #5 tab 02/19/19 tablet] Surgical History: Surgical History (Last Reviewed 02/12/19 @ 20:40 by Virgil Murray DO) H/O heart artery stent Z95.5 History of carpal tunnel surgery Z92.89 Presence of surgically created arteriovenous shunt for hemodialysis Z99.2 Surgical History: - - PCI, bilateral ureteral stent placements and removal, AVF creation, tunnel intervention, port placement. Psychiatric History: Anxiety, Depression CARD CHECKER History: No pertinent CARD CHECKER history Smoking Status: Never smoker - *Family History Maternal History Items: Unknown - Patient was adopted and she does not know her family of origin to be able to provide any family medical history. Paternal History Items: Unknown - Patient was adopted and she does not know her family of origin to be able to provide any family medical history. Review of Systems Unable to obtain accurate/complete ROS d/t: Patient is lethargic likely due to end-stage renal disease and elevated cre Patient Problems: Active and Suspected Problems (Last Reviewed 02/12/19 @ 20:40 by Virgil Murray DO) Gastroparesis (Acute) - Physical Exam Vitals/I&O's: Vital Signs Temp Pulse Resp BP Pulse Ox 99.9 F H 79 16 128/70 H 89 02/20/19 07:37 02/20/19 07:37 02/20/19 07:37 02/20/19 07:37 02/20/19 07:37 Oxygen Flow Rate (L/min) 2 Oxygen Delivery Method Room Air Weight: 266 lb 1.567 oz Body Mass Index (BMI) 48.4 Finger Stick Blood Glucose 98 Intake and Output for Last 24 Hours 02/18/19 02/19/19 02/20/19 23:59 23:59 23:59 Intake Total 400 / 400 200 / 200 250 / 250 Output Total 0 / 0 50 / 50 0 / 0 Balance 400 / 400 150 / 150 250 / 250 General: Lethargic HEENT: Atraumatic Lungs: Normal air movement Cardiovascular: Tachycardic - Low 100s Abdomen: Soft, Non Tender, Non-Distended, - - Right lower abdominal peritoneal dialysis catheter present and dressed Extremities: - - Amputation of the left fifth digit, multiple incisions on bilateral upper extremities due to fistulas, no no thrills are present on any fistula Microbiology Past 72 Hours 02/16/19 Unknown Tissue - Leg, Right Gram Stain - Final 02/16/19 Unknown Tissue - Leg, Right Wound Culture - Final No growth aerobically. 02/16/19 Unknown Tissue - Leg, Right Anaerobic Culture - Preliminary No growth in 48 hours. 02/16/19 Unknown Tissue - Leg, Left Gram Stain - Final 02/16/19 Unknown Tissue - Leg, Left Wound Culture - Final No growth aerobically. 02/16/19 Unknown Tissue - Leg, Left Anaerobic Culture - Preliminary No growth in 48 hours. 02/13/19 13:40 Fluid - Peritoneal Gram Stain - Final 02/13/19 13:40 Fluid - Peritoneal Body Fluid Culture - Final Culture exhibits no growth. 02/13/19 13:40 Fluid - Peritoneal Anaerobic Culture - Final No growth in 5 days. Laboratory Results 02/19/19 12:47: POC Glucose 107 02/19/19 17:22: POC Glucose 77 02/19/19 21:50: POC Glucose 103 02/20/19 06:39: Sodium 130 L, Potassium 4.0, Chloride 93 L, Carbon Dioxide 25.0, Anion Gap 12, BUN 45 H, Creatinine 7.95 H*, Estim Creat Clear Calc 6.89, Est GFR (MDRD) Af Amer 7 L, Est GFR (MDRD) Non-Af 6 L, BUN/Creatinine Ratio 5.7 L, Glucose 64 L, Calcium 7.9 L 02/20/19 06:39: POC Glucose 66 L 02/20/19 07:19: POC Glucose 76 02/20/19 08:30: WBC 11.0, RBC 3.63 L, Hgb 9.0 L, Hct 27.7 L, MCV 76.3 L, MCH 24.8 L, MCHC 32.5, RDW Std Deviation 48.9 H, RDW Coeff of Lu 17.7 H, Plt Count 220, MPV 9.4, Immature Gran % (Auto) 1.300 H, Neut % (Auto) 86.2 H, Lymph % (Auto) 5.0 L, [place] % (Auto) 6.4, Eos % (Auto) 0.8, Baso % (Auto) 0.3, Absolute Neuts (auto) 9.5 H, Absolute Lymphs (auto) 0.55 L, Nucleated RBC % 0, Differential Comment COMMENT Current Medications Acetaminophen (Tylenol) 650 mg PO Q6H PRN PRN PRN Reason: Pain Score 1-3/Temp > 100.7 F Last Admin: 02/19/19 09:47 Dose: 650 mg Documented by: Aspirin (Ecotrin) 81 mg PO DAILY@0800 [facility] Last Admin: 02/19/19 08:28 Dose: 81 mg Documented by: Bupropion HCl (Wellbutrin Xl) 300 mg PO DAILY [facility] Last Admin: 02/19/19 09:47 Dose: 300 mg Documented by: Dextrose (D50w Syringe) 0 gm IV X1 PRN; Protocol PRN Reason: Hypoglycemia Emollient Ointment (Eucerin Intensive Repair) 1 applic TOPICAL 4X/DAY PRN PRN; Protocol PRN Reason: DRY SKIN Glucagon () 1 mg IM .X1 PRN PRN Reason: Hypoglycemia Guaifenesin (Robitussin) 20 ml PO Q4H PRN PRN PRN Reason: COUGH Last Admin: 02/12/19 23:09 Dose: 20 ml Documented by: Heparin Sodium (Porcine) (Heparin Na) 5,000 unit SC Q8 [facility] Last Admin: 02/20/19 06:45 Dose: 5,000 unit Documented by: Hydralazine HCl (Apresoline Iv) 10 mg IV Q4H PRN PRN PRN Reason: SBP > 160 Sodium Chloride () 250 mls @ 15 mls/hr IV .[id number] PRN PRN Reason: Saline Flush Last Infusion: 02/17/19 12:20 Dose: Infused Documented by: Insulin Human Lispro (Humalog Kwikpen (Bkc)) 0 unit SC ACHS [facility]; Protocol Last Admin: 02/20/19 06:57 Dose: Not Given Documented by: Lactic Acid (Lac-Hydrin, Amlactin) 1 applic TOPICAL TID [facility]; Protocol Last Admin: 02/20/19 06:45 Dose: 1 applicatio Documented by: Levofloxacin (Levaquin Tablet) 500 mg PO Q48@0600 [facility] Last Admin: 02/19/19 13:23 Dose: 500 mg Documented by: Melatonin (Melatonin) 3 mg PO QHS PRN PRN PRN Reason: INSOMNIA Last Admin: 02/12/19 23:07 Dose: 3 mg Documented by: Metoclopramide HCl (Metoclopramide Hcl) 5 mg PO TIDAC [facility] Last Admin: 02/20/19 06:45 Dose: 5 mg Documented by: Nortriptyline HCl (Pamelor) 50 mg PO QHS [facility] Last Admin: 02/19/19 23:07 Dose: 50 mg Documented by: Nystatin (Mycostatin Powder) 1 applic TOPICAL BID [facility]; Protocol Last Admin: 02/19/19 22:02 Dose: 1 applicatio Documented by: Ondansetron HCl (Zofran) 4 mg IV Q8H PRN PRN PRN Reason: NAUSEA/VOMITING Last Admin: 02/19/19 00:37 Dose: 4 mg Documented by: Oxycodone HCl (Oxyir) 5 mg PO Q4H PRN PRN PRN Reason: Pain Score 4-10/10 Last Admin: 02/19/19 14:39 Dose: 5 mg Documented by: Pregabalin (Lyrica) 50 mg PO BID [facility] Last Admin: 02/19/19 23:07 Dose: 50 mg Documented by: Sodium Chloride () 10 - 40 ml IV UD PRN PRN Reason: SALINE FLUSH Last Admin: 02/19/19 00:37 Dose: 10 ml Documented by: Venlafaxine HCl (Effexor Xr) 150 mg PO DAILY [facility] Last Admin: 02/19/19 09:48 Dose: 150 mg Documented by: Assessment/Plan All Active Problems (Last Reviewed 02/12/19 @ 20:40 by Virgil Murray DO) Necrotizing soft tissue infection (Acute) Open wound of both lower extremities with complication (Acute) Calciphylaxis (Acute) Lower extremity weakness (Acute) Generalized weakness (Acute) Gastroparesis (Acute) Syncope (Acute) 43-year-old female with end-stage renal disease on peritoneal dialysis 1. We will plan to place a temporary right IJ dialysis catheter as patient's peritoneal dialysis catheter has not been working appropriately over the last 2 days. Question whether her ileus could play a role with this or not. Did discuss with Dr. Patricia as well. Patient currently falls asleep mid question likely due to her creatinine of 7.95. Patient was agreeable to the dialysis catheter however also d/w Pt dad Chad as well. He didn't have any further questions and was agreeable to placement. Madelin Massey M.D. Pager: [phone] [facility] [address] [place] [address], [facility], [address] [place] [address] Office: [phone] Code Visit Inpatient E&M: 44899 Init Hosp L2
--- NOTE | 2019-02-20 10:32 | NURSING ---
Report given to Nasreen in PCU. Consent obtained and update given to patient's father, Chad. Patient transferred off unit on TELE by JULITO Leyva and DISTRICT OPERATIONS MANAGER.
--- NOTE | 2019-02-20 10:48 | CASEMGMT ---
Social Work Note SW received message from Kimberli at [facility] stating her staff is being trained today at 1:00pm and pt can be transported after that time if medically cleared. Pt is getting temporary HD catheter placed today and then going to PCU. RAIZA placed a call to Kimberli at [facility] and updated her on information and informed Kimberli that pt will likely be at [facility] throughout the weekend. RAIZA placed a call to Kris CORONADO on PCU and provided report. Josefina Rose LABOR CUSTODIAN, [employer]
--- NOTE | 2019-02-20 10:59 | PN_ITS ---
Patient Problems: Active and Suspected Problems (Last Reviewed 02/12/19 @ 20:40 by Virgil Murray DO) Gastroparesis (Acute) Subjective: Patient seen and examined. She could not be discharged yesterday as planned in account of malfunctioning peritoneal dialysis catheter. This was initially thought to be due to constipation but despite bowel movements with laxative and enema, peritoneal dialysis catheter is still not functioning. She has been unable to have dialysis for the last 2 days. She does seem to be more lethargic today. She denies any lightheadedness or dizziness or nausea. She denies any abdominal pain or vomiting. Review of systems otherwise negative. Labs and vitals reviewed. Vitals/I&O's: Vital Signs Temp Pulse Resp BP Pulse Ox 99.9 F H 79 16 128/70 H 89 02/20/19 07:37 02/20/19 07:37 02/20/19 07:37 02/20/19 07:37 02/20/19 07:37 Oxygen Flow Rate (L/min) 2 Oxygen Delivery Method Room Air Weight: 266 lb 1.567 oz Body Mass Index (BMI) 48.4 Finger Stick Blood Glucose 98 Intake and Output for Last 24 Hours 02/18/19 02/19/19 02/20/19 23:59 23:59 23:59 Intake Total 400 / 400 200 / 200 250 / 250 Output Total 0 / 0 50 / 50 0 / 0 Balance 400 / 400 150 / 150 250 / 250 General: Alert, Oriented x3, Cooperative, No apparent distress, lethargic HEENT: Atraumatic, PERRLA, EOMI, Normocephalic Oral: Moist Mucosa Neck: Supple, No JVD, Negative Carotid Bruits Lungs: Clear to auscultation, Normal air movement, No rhonchi, No wheeze, No rales Cardiovascular: Regular rate, Regular Rhythm, Normal S1, Normal S2, No murmurs Abdomen: Bowel Sounds Present, Soft, Non Tender, Non-Distended, No Hepato- splenomegaly Extremities: No clubbing, No cyanosis, No edema, Capillary Refill Less than 3 Seconds Skin: - - has wound vac over surgical areas on both thighs Musculoskeletal: No Tenderness to Palpation of Joints or Extremities Lymphatic: No Cervical, Supraclavicular, or Inguinal Adenopathy Neurological: Cranial nerves II-XII grossly intact, Neuro grossly intact, Motor Exam 5/5 strength throughout Psych/Mental Status: Normal Affect, Appropriate, Alert and oriented to time, place, person, mood and affect Microbiology Past 72 Hours 02/16/19 Unknown Tissue - Leg, Right Gram Stain - Final 02/16/19 Unknown Tissue - Leg, Right Wound Culture - Final No growth aerobically. 02/16/19 Unknown Tissue - Leg, Right Anaerobic Culture - Preliminary No growth in 48 hours. 02/16/19 Unknown Tissue - Leg, Left Gram Stain - Final 02/16/19 Unknown Tissue - Leg, Left Wound Culture - Final No growth aerobically. 02/16/19 Unknown Tissue - Leg, Left Anaerobic Culture - Preliminary No growth in 48 hours. 02/13/19 13:40 Fluid - Peritoneal Gram Stain - Final 02/13/19 13:40 Fluid - Peritoneal Body Fluid Culture - Final Culture exhibits no growth. 02/13/19 13:40 Fluid - Peritoneal Anaerobic Culture - Final No growth in 5 days. Laboratory Results 02/19/19 12:47: POC Glucose 107 02/19/19 17:22: POC Glucose 77 02/19/19 21:50: POC Glucose 103 02/20/19 06:39: Sodium 130 L, Potassium 4.0, Chloride 93 L, Carbon Dioxide 25.0, Anion Gap 12, BUN 45 H, Creatinine 7.95 H*, Estim Creat Clear Calc 6.89, Est GFR (MDRD) Af Amer 7 L, Est GFR (MDRD) Non-Af 6 L, BUN/Creatinine Ratio 5.7 L, Glucose 64 L, Calcium 7.9 L 02/20/19 06:39: POC Glucose 66 L 02/20/19 07:19: POC Glucose 76 02/20/19 08:30: WBC 11.0, RBC 3.63 L, Hgb 9.0 L, Hct 27.7 L, MCV 76.3 L, MCH 24.8 L, MCHC 32.5, RDW Std Deviation 48.9 H, RDW Coeff of Lu 17.7 H, Plt Count 220, MPV 9.4, Immature Gran % (Auto) 1.300 H, Neut % (Auto) 86.2 H, Lymph % (Auto) 5.0 L, [place] % (Auto) 6.4, Eos % (Auto) 0.8, Baso % (Auto) 0.3, Absolute Neuts (auto) 9.5 H, Absolute Lymphs (auto) 0.55 L, Nucleated RBC % 0, Differential Comment COMMENT Current Medications Acetaminophen (Tylenol) 650 mg PO Q6H PRN PRN PRN Reason: Pain Score 1-3/Temp > 100.7 F Last Admin: 02/19/19 09:47 Dose: 650 mg Documented by: Aspirin (Ecotrin) 81 mg PO DAILY@0800 [facility] Last Admin: 02/19/19 08:28 Dose: 81 mg Documented by: Bupropion HCl (Wellbutrin Xl) 300 mg PO DAILY [facility] Last Admin: 02/19/19 09:47 Dose: 300 mg Documented by: Dextrose (D50w Syringe) 0 gm IV X1 PRN; Protocol PRN Reason: Hypoglycemia Emollient Ointment (Eucerin Intensive Repair) 1 applic TOPICAL 4X/DAY PRN PRN; Protocol PRN Reason: DRY SKIN Glucagon () 1 mg IM .X1 PRN PRN Reason: Hypoglycemia Guaifenesin (Robitussin) 20 ml PO Q4H PRN PRN PRN Reason: COUGH Last Admin: 02/12/19 23:09 Dose: 20 ml Documented by: Heparin Sodium (Porcine) (Heparin Na) 5,000 unit SC Q8 [facility] Last Admin: 02/20/19 06:45 Dose: 5,000 unit Documented by: Hydralazine HCl (Apresoline Iv) 10 mg IV Q4H PRN PRN PRN Reason: SBP > 160 Sodium Chloride () 250 mls @ 15 mls/hr IV .[id number] PRN PRN Reason: Saline Flush Last Infusion: 02/17/19 12:20 Dose: Infused Documented by: Insulin Human Lispro (Humalog Kwikpen (Bkc)) 0 unit SC ACHS [facility]; Protocol Last Admin: 02/20/19 06:57 Dose: Not Given Documented by: Lactic Acid (Lac-Hydrin, Amlactin) 1 applic TOPICAL TID [facility]; Protocol Last Admin: 02/20/19 06:45 Dose: 1 applicatio Documented by: Levofloxacin (Levaquin Tablet) 500 mg PO Q48@0600 [facility] Last Admin: 02/19/19 13:23 Dose: 500 mg Documented by: Melatonin (Melatonin) 3 mg PO QHS PRN PRN PRN Reason: INSOMNIA Last Admin: 02/12/19 23:07 Dose: 3 mg Documented by: Metoclopramide HCl (Metoclopramide Hcl) 5 mg PO TIDAC [facility] Last Admin: 02/20/19 06:45 Dose: 5 mg Documented by: Nortriptyline HCl (Pamelor) 50 mg PO QHS [facility] Last Admin: 02/19/19 23:07 Dose: 50 mg Documented by: Nystatin (Mycostatin Powder) 1 applic TOPICAL BID [facility]; Protocol Last Admin: 02/19/19 22:02 Dose: 1 applicatio Documented by: Ondansetron HCl (Zofran) 4 mg IV Q8H PRN PRN PRN Reason: NAUSEA/VOMITING Last Admin: 02/19/19 00:37 Dose: 4 mg Documented by: Oxycodone HCl (Oxyir) 5 mg PO Q4H PRN PRN PRN Reason: Pain Score 4-10/10 Last Admin: 02/19/19 14:39 Dose: 5 mg Documented by: Pregabalin (Lyrica) 50 mg PO BID [facility] Last Admin: 02/19/19 23:07 Dose: 50 mg Documented by: Sodium Chloride () 10 - 40 ml IV UD PRN PRN Reason: SALINE FLUSH Last Admin: 02/19/19 00:37 Dose: 10 ml Documented by: Venlafaxine HCl (Effexor Xr) 150 mg PO DAILY [facility] Last Admin: 02/19/19 09:48 Dose: 150 mg Documented by: STROKE Vital Signs/Narrative: Vital Signs Temp Pulse Resp BP Pulse Ox 02/20/19 07:37 99.9 F H 79 16 128/70 H 89 Medical Necessity - Tobacco Use Smoking Status: Never smoker Assessment/Plan All Active Problems (Last Reviewed 02/12/19 @ 20:40 by Virgil Murray DO) Necrotizing soft tissue infection (Acute) Open wound of both lower extremities with complication (Acute) Calciphylaxis (Acute) Lower extremity weakness (Acute) Generalized weakness (Acute) Gastroparesis (Acute) Syncope (Acute) 1. Acute gastroparesis: resolved. on reglan 5mg tid 2. Bilateral thigh skin necrosis * s/p incision and drainage and excisional debridement. Today is POD 3 * has wound vac on both thighs. * preliminary wound cultures are negative; * on PO levaquin. * plastic surgery on board * PT/OT 3. Hyponatremia: * chronic. is 130 today. 4. Hypokalemia: resolved 5. Hypomagnesemia: Resolved. 6. ESRD: * peritoneal catheter is malfunctioning * unable to have dialysis for the last 2 days o/a of the malfunctioning catheter * general surgery consulted for dialysis catheter placement so she can have hemodialysis in the interim. * will need to follow up with Dr Patricia once discharged for review of malfunctioning peritoneal dialysis catheter 7. Type 2 diabetes mellitus: Diet-controlled: On insulin sliding scale. Accu- Cheks before meals at bedtime. 8. Anxiety and depression: On Effexor nortriptyline as well as wellbutrin 9. Anemia of chronic disease: Hb is 9 today, which is around her baseline. Will monitor. DVT Prophylaxis: heparin Code Visit Inpatient E&M: 53080 Subs Hosp L2
--- NOTE | 2019-02-20 11:14 | RAD_ITS ---
STUDY: X-RAY CHEST REASON FOR EXAM: Female, 43 years old. Temporary dialysis line placement. TECHNIQUE: Single AP portable view of the chest. COMPARISON: Comparison is made with prior examination dated February 12, 2019. FINDINGS: A right sided internal jugular catheter is seen with the tip in the right atrium. EKG electrodes are seen. There is evidence of increased markings at both lung bases more prominent on the right lung base suggestive of atelectasis. There is no demonstrated pleural abnormality. There is moderate cardiac enlargement. Normal mediastinum and anita. Normal visualized pulmonary arteries. Normal visualized aortic arch and descending thoracic aorta. There are diffuse degenerative changes of the visualized thoracic spine. Normal visualized ribs, clavicles, and shoulders. Gaseous distention of the transverse colon. RAD/CXR for Line Placement IMPRESSION: The tip of the dialysis catheter is in the right atrium. Bibasilar atelectasis more prominent on the right side. Electronically Signed: Donald Pride, at 11:41 EST , Service support ,
--- NOTE | 2019-02-20 11:16 | PCM.OPRPT ---
Report of Operation Date of Procedure: 02/20/19 Pre-Operative Diagnosis: End-stage renal disease on dialysis, need for IV access Post-Operative Diagnosis: Same Surgery/Procedure Performed:: Right IJ temporary Mahurkar catheter Type of Anesthesia:: Local Estimated Blood Loss (mL): minimal Description of Procedure: The patient's right upper chest and neck were then prepped with a surgical skin preparation and sterile surgical drapes were placed. After proper landmarks were ascertained, the skin at the upper right chest area was then infiltrated with of 1% lidocaine. A needle trocar was then inserted into the right internal jugular vein with ultrasound guidance and there was good aspiration of venous blood. A wire was then threaded into the needle trocar and the wire thread easily. Once this was done, then the needle trocar was removed. A small skin yovany was made with an 11 blade knife at the wire entrance site. The dilator x 2 was then placed over the wire into the right internal jugular vein via the Seldinger technique. The dual curved port Mahurkar catheter was placed over the wire at 16 cm at skin. Both ports flushed and sulema well. 2 cc of the [id number] heparin was placed in each of the port sites. Dialysis catheter was secured with 1-0 nylon to the skin. Dressing was placed. Patient tolerated procedure well. Chest x-ray was ordered and reviewed-- catheter tip was in the right atrium, no PTX. Grafts/Implants Used: mahurkar 12 Fr x 16 cm REF [id number] LOT [id number] - Complications none
--- NOTE | 2019-02-20 11:30 | CASEMGMT ---
Raul at [facility] aware that pt had temp cath placed but states that pt will need a tunnel cath prior to discharge to [facility]. He states that pt will be on a TTS 0630 chair time but it is unknown when pt will be discharged at this time d/t needing tunnel cath and [facility] is aware at this time. This RN CM will keep them updated. Deidre EASTMAN aware of chair time and she notified [facility] at this time. SStaten RN CM
--- NOTE | 2019-02-20 12:08 | CASEMGMT ---
Addendum entered by Kaila Medina 02/20/19 12:44: Kimberli called RAIZA back and left a voice mail indicating they spoke with [facility] and they would be able to transport patient to and from dialysis if family cannot transport. SW will update them on Saturday as patient will be here through the weekend. Kaila MOON Original Note: Patient's new dialysis schedule will be T,TH, Sat at 630a. RAIZA called Kimberli at [facility] and let her know this schedule. Kaila CORONADO SCREEN PRINTING LOADER UNLOADER
--- NOTE | 2019-02-20 12:24 | PCM.PN.REN ---
Patient Problems: Active and Suspected Problems (Last Reviewed 02/12/19 @ 20:40 by Virgil Murray DO) Gastroparesis (Acute) Subjective: transferred to PCU. No BM so far with bowel prep. Lethargic from narcotics. Unable to receive PD past 2 nights due to catheter malfxn. Not able to drain effluent and has slow fill. Temp dialysis catheter placed for hemodialysis today. Will need temp dialysis catheter line converted to tunnel line prior to discharge to [facility]. - Physical Exam Vitals/I&O's: Vital Signs Temp Pulse Resp BP Pulse Ox 101.0 F H 77 18 119/82 H 97 02/20/19 11:56 02/20/19 11:56 02/20/19 11:56 02/20/19 11:56 02/20/19 11:56 Oxygen Flow Rate (L/min) 2 Oxygen Delivery Method Room Air Weight: 120.7 kg Body Mass Index (BMI) 48.4 Finger Stick Blood Glucose 98 Intake and Output for Last 24 Hours 02/18/19 02/19/19 02/20/19 23:59 23:59 23:59 Intake Total 400 / 400 200 / 200 250 / 250 Output Total 0 / 0 50 / 50 0 / 0 Balance 400 / 400 150 / 150 250 / 250 General: Confused, Lethargic Lungs: Clear to auscultation Cardiovascular: Regular rate Abdomen: Soft, Non Tender, Non-Distended, Hypoactive Bowel Sounds, Obese Extremities: No edema Skin: Ulcer/ Wound - wound vac Neurological: - - lethargic, twitching Psych/Mental Status: Hallucinations, - - confused to time Microbiology Past 72 Hours 02/16/19 Unknown Tissue - Leg, Right Gram Stain - Final 02/16/19 Unknown Tissue - Leg, Right Wound Culture - Final No growth aerobically. 02/16/19 Unknown Tissue - Leg, Right Anaerobic Culture - Preliminary No growth in 48 hours. 02/16/19 Unknown Tissue - Leg, Left Gram Stain - Final 02/16/19 Unknown Tissue - Leg, Left Wound Culture - Final No growth aerobically. 02/16/19 Unknown Tissue - Leg, Left Anaerobic Culture - Preliminary No growth in 48 hours. 02/13/19 13:40 Fluid - Peritoneal Gram Stain - Final 02/13/19 13:40 Fluid - Peritoneal Body Fluid Culture - Final Culture exhibits no growth. 02/13/19 13:40 Fluid - Peritoneal Anaerobic Culture - Final No growth in 5 days. Laboratory Results 02/19/19 12:47: POC Glucose 107 02/19/19 17:22: POC Glucose 77 02/19/19 21:50: POC Glucose 103 02/20/19 06:39: Sodium 130 L, Potassium 4.0, Chloride 93 L, Carbon Dioxide 25.0, Anion Gap 12, BUN 45 H, Creatinine 7.95 H*, Estim Creat Clear Calc 6.89, Est GFR (MDRD) Af Amer 7 L, Est GFR (MDRD) Non-Af 6 L, BUN/Creatinine Ratio 5.7 L, Glucose 64 L, Calcium 7.9 L 02/20/19 06:39: POC Glucose 66 L 02/20/19 07:19: POC Glucose 76 02/20/19 08:30: WBC 11.0, RBC 3.63 L, Hgb 9.0 L, Hct 27.7 L, MCV 76.3 L, MCH 24.8 L, MCHC 32.5, RDW Std Deviation 48.9 H, RDW Coeff of Lu 17.7 H, Plt Count 220, MPV 9.4, Immature Gran % (Auto) 1.300 H, Neut % (Auto) 86.2 H, Lymph % (Auto) 5.0 L, [place] % (Auto) 6.4, Eos % (Auto) 0.8, Baso % (Auto) 0.3, Absolute Neuts (auto) 9.5 H, Absolute Lymphs (auto) 0.55 L, Nucleated RBC % 0, Differential Comment COMMENT Current Medications Acetaminophen (Tylenol) 650 mg PO Q6H PRN PRN PRN Reason: Pain Score 1-3/Temp > 100.7 F Last Admin: 02/19/19 09:47 Dose: 650 mg Documented by: Aspirin (Ecotrin) 81 mg PO DAILY@0800 [facility] Last Admin: 02/19/19 08:28 Dose: 81 mg Documented by: Bupropion HCl (Wellbutrin Xl) 300 mg PO DAILY [facility] Last Admin: 02/19/19 09:47 Dose: 300 mg Documented by: Dextrose (D50w Syringe) 0 gm IV X1 PRN; Protocol PRN Reason: Hypoglycemia Emollient Ointment (Eucerin Intensive Repair) 1 applic TOPICAL 4X/DAY PRN PRN; Protocol PRN Reason: DRY SKIN Glucagon () 1 mg IM .X1 PRN PRN Reason: Hypoglycemia Guaifenesin (Robitussin) 20 ml PO Q4H PRN PRN PRN Reason: COUGH Last Admin: 02/12/19 23:09 Dose: 20 ml Documented by: Heparin Sodium (Porcine) (Heparin Na) 5,000 unit SC Q8 [facility] Last Admin: 02/20/19 06:45 Dose: 5,000 unit Documented by: Hydralazine HCl (Apresoline Iv) 10 mg IV Q4H PRN PRN PRN Reason: SBP > 160 Sodium Chloride () 250 mls @ 15 mls/hr IV .[id number] PRN PRN Reason: Saline Flush Last Infusion: 02/17/19 12:20 Dose: Infused Documented by: Insulin Human Lispro (Humalog Kwikpen (Bkc)) 0 unit SC ACHS [facility]; Protocol Last Admin: 02/20/19 12:10 Dose: Not Given Documented by: Lactic Acid (Lac-Hydrin, Amlactin) 1 applic TOPICAL TID [facility]; Protocol Last Admin: 02/20/19 06:45 Dose: 1 applicatio Documented by: Levofloxacin (Levaquin Tablet) 500 mg PO Q48@0600 [facility] Last Admin: 02/19/19 13:23 Dose: 500 mg Documented by: Melatonin (Melatonin) 3 mg PO QHS PRN PRN PRN Reason: INSOMNIA Last Admin: 02/12/19 23:07 Dose: 3 mg Documented by: Metoclopramide HCl (Metoclopramide Hcl) 5 mg PO TIDAC [facility] Last Admin: 02/20/19 06:45 Dose: 5 mg Documented by: Nortriptyline HCl (Pamelor) 50 mg PO QHS [facility] Last Admin: 02/19/19 23:07 Dose: 50 mg Documented by: Nystatin (Mycostatin Powder) 1 applic TOPICAL BID [facility]; Protocol Last Admin: 02/19/19 22:02 Dose: 1 applicatio Documented by: Ondansetron HCl (Zofran) 4 mg IV Q8H PRN PRN PRN Reason: NAUSEA/VOMITING Last Admin: 02/19/19 00:37 Dose: 4 mg Documented by: Oxycodone HCl (Oxyir) 5 mg PO Q4H PRN PRN PRN Reason: Pain Score 4-10/10 Last Admin: 02/19/19 14:39 Dose: 5 mg Documented by: Pregabalin (Lyrica) 50 mg PO BID [facility] Last Admin: 02/19/19 23:07 Dose: 50 mg Documented by: Sodium Chloride () 10 - 40 ml IV UD PRN PRN Reason: SALINE FLUSH Last Admin: 02/19/19 00:37 Dose: 10 ml Documented by: Venlafaxine HCl (Effexor Xr) 150 mg PO DAILY [facility] Last Admin: 02/19/19 09:48 Dose: 150 mg Documented by: Medical Necessity - Tobacco Use Smoking Status: Never smoker Assessment/Plan All Active Problems (Last Reviewed 02/12/19 @ 20:40 by Virgil Murray DO) Necrotizing soft tissue infection (Acute) Open wound of both lower extremities with complication (Acute) Calciphylaxis (Acute) Lower extremity weakness (Acute) Generalized weakness (Acute) Gastroparesis (Acute) Syncope (Acute) 1. ESRD hemodialysis today and Saturday with temp hemodialysis catheter. Will need it converted to tunneled catheter prior to discharge. Dr. Patricia to assess PD catheter at a later time. Pt has backup hemodialysis scheduled THS at chronic center. 2. Anemia epo on dialysis 3. Gastroparesis asymptomatic 4. HTN stable 5. Hx obstructive uropathy 6. Skin necrosis bilat thighs s/p debridement, wound vac. 7. confusion, altered mental status last narcotic dose yesterday afternoon. Hold on further narcotics. DW hospitalist, GS, CM
[2019-02-20] MEDS: Glucagon 1 MG/ML Syringe IM (12:48)
[2019-02-20] MEDS: Nystatin Powder 15gm Bottle 1 APPLIC TOPICAL ×2 (12:52→20:44)
[2019-02-20 13:11] LABS: Bedside Glucose 67 mg/dL (70-110)
[2019-02-20 13:11] LABS: Bedside Glucose 91 mg/dL (70-110)
[2019-02-20 13:15] LABS: Pathologist Comment/Body Fluid Reviewed
[2019-02-20] MEDS: Dextrose 50%-Water 25 GM/50 ML DISP.SYRIN IV (16:50)
[2019-02-20 19:31] LABS: Bedside Glucose 65 mg/dL (70-110)
[2019-02-20 19:31] LABS: Bedside Glucose 101 mg/dL (70-110)
[2019-02-20 21:05] LABS: Bedside Glucose 70 mg/dL (70-110)
[2019-02-20] MEDS: Dextrose 5%/0.9% NaCl 1,000 ML 60 ML IV (23:27)
[2019-02-20] MEDS: 0.9% Saline Lock 10 ML Syringe IV (23:27)
[2019-02-21] VITALS (8 sets, daily range): BP systolic 91–143; BP diastolic 53–84; PULSE 82–95; RESP 15–18; TEMP 36.7–37.1; O2SAT 94–100
[2019-02-21] MEDS: Heparin Injection (Vial) 5,000 UNIT/ML VIAL 5000 UNIT SC ×3 (06:07→22:04)
[2019-02-21] MEDS: Ammonium Lactate 225 gm Bottle 1 APPLIC TOPICAL ×3 (06:08→22:04)
[2019-02-21] MEDS: Morphine 2 MG/ML Syringe IV (06:09)
[2019-02-21 06:46] LABS: Bedside Glucose 111 mg/dL (70-110)
[2019-02-21 07:13] LABS: Absolute Lymphocyte Count 0.46 X10^3/uL (0.83-4.51); Absolute Neutrophil Count 10.6 X10^3/uL (2.0-7.7); Basophil# 0.02 X10^3/uL; Basophil% 0.2 % (0-1); Eosinophil# 0.06 X10^3/uL; Eosinophils% 0.5 % (0-5); Hematocrit 25.6 % (37-47); Hemoglobin 8.3 g/dL (12.0-15.0); Lymphocyte # 0.46 X10^3/ul (4.0); Lymphocyte % 3.8 % (19-41); Mean Corp Hgb Conc 32.4 g/dL (32-36); Mean Corpuscular Hgb 24.8 pg (27.0-32.0); Mean Corpuscular Volume 76.4 fL (81-99); Mean Platelet Vol. 9.5 fl (6.2-12.0); Monocyte# 0.73 X10^3/uL; Monocyte% 6.1 % (0-10); NRBC Flagged by Analyzer 0 % (0-5); Neutrophil # 10.61 X10^3/uL (2.7-7.7); Neutrophil % 88.5 % (47-70); POSITIVE DIFFERENTIAL YES; Platelet Count 203 K/mm3 (150-450); RBC Distribution Width CV 17.7 % (11.6-14.6); RBC Distribution Width SD 49.1 fl (35.1-43.9); Red Blood Count 3.35 M/mm3 (4.2-5.4)
[2019-02-21 07:17] LABS: Differential Indicated SCAN CRITERIA MET
[2019-02-21 07:31] LABS: Albumin, Serum 1.4 g/dL (3.2-5.0); BUN 24 mg/dL (7-18); BUN/Creat Ratio 4.7 RATIO (10-20); Calcium,Total 7.7 mg/dL (8.5-10.1); Chloride 97 mmol/L (98-107); Creatinine, Serum 5.13 mg/dL (0.55-1.02); EST Glomerular Filtration Rate 10 mL/min (>60); Est Glom Filt Rate - Afr Amer 12 mL/min (>60); Estimated Creatinine Clearance 10.67 ml/min; Glucose 116 mg/dL (74-106); Phosphorus 3.7 mg/dL (2.5-4.9); Potassium 3.7 mmol/L (3.5-5.1); Sodium Level 134 mmol/L (136-145)
--- NOTE | 2019-02-21 08:21 | PN.SURG_ITS ---
Patient Problems: Active and Suspected Problems (Last Reviewed 02/12/19 @ 20:40 by Virgil Murray DO) Gastroparesis (Acute) Objective: Patient is alert this morning. Dialysis was completed yesterday with a temporary right IJ catheter. - Physical Exam Vitals/I&O's: Vital Signs Temp Pulse Resp BP Pulse Ox 98.6 F 89 18 128/74 H 98 02/21/19 06:02 02/21/19 07:03 02/21/19 06:02 02/21/19 06:02 02/21/19 06:02 Oxygen Flow Rate (L/min) 2 Oxygen Delivery Method Room Air Weight: 268 lb 4.841 oz Body Mass Index (BMI) 48.4 Finger Stick Blood Glucose 98 Intake and Output for Last 24 Hours 02/19/19 02/20/19 02/21/19 23:59 23:59 23:59 Intake Total 200 / 200 250 / 250 Output Total 50 / 50 0 / 0 Balance 150 / 150 250 / 250 General: Alert, Cooperative, No apparent distress HEENT: Atraumatic Cardiovascular: Tachycardic - Low 100s Abdomen: Soft, Non Tender, Non-Distended, - - Peritoneal dialysis catheter in place Extremities: No edema Microbiology Past 72 Hours 02/16/19 Unknown Tissue - Leg, Right Gram Stain - Final 02/16/19 Unknown Tissue - Leg, Right Wound Culture - Final No growth aerobically. 02/16/19 Unknown Tissue - Leg, Right Anaerobic Culture - Preliminary No growth in 48 hours. 02/16/19 Unknown Tissue - Leg, Left Gram Stain - Final 02/16/19 Unknown Tissue - Leg, Left Wound Culture - Final No growth aerobically. 02/16/19 Unknown Tissue - Leg, Left Anaerobic Culture - Preliminary No growth in 48 hours. 02/13/19 13:40 Fluid - Peritoneal Gram Stain - Final 02/13/19 13:40 Fluid - Peritoneal Body Fluid Culture - Final Culture exhibits no growth. 02/13/19 13:40 Fluid - Peritoneal Anaerobic Culture - Final No growth in 5 days. Laboratory Results 02/18/19 10:10: Fl Pathologist Comment Reviewed 02/20/19 08:30: WBC 11.0, RBC 3.63 L, Hgb 9.0 L, Hct 27.7 L, MCV 76.3 L, MCH 24.8 L, MCHC 32.5, RDW Std Deviation 48.9 H, RDW Coeff of Lu 17.7 H, Plt Count 220, MPV 9.4, Immature Gran % (Auto) 1.300 H, Neut % (Auto) 86.2 H, Lymph % (Auto) 5.0 L, [place] % (Auto) 6.4, Eos % (Auto) 0.8, Baso % (Auto) 0.3, Absolute Neuts (auto) 9.5 H, Absolute Lymphs (auto) 0.55 L, Nucleated RBC % 0, Differential Comment COMMENT 02/20/19 12:09: POC Glucose 67 L 02/20/19 13:05: POC Glucose 91 02/20/19 16:45: POC Glucose 65 L 02/20/19 17:12: POC Glucose 101 02/20/19 20:39: POC Glucose 70 02/21/19 06:05: POC Glucose 111 H 02/21/19 06:18: WBC 12.0 H, RBC 3.35 L, Hgb 8.3 L, Hct 25.6 L, MCV 76.4 L, MCH 24.8 L, MCHC 32.4, RDW Std Deviation 49.1 H, RDW Coeff of Lu 17.7 H, Plt Count 203, MPV 9.5, Immature Gran % (Auto) 0.900, Neut % (Auto) 88.5 H, Lymph % (Auto) 3.8 L, [place] % (Auto) 6.1, Eos % (Auto) 0.5, Baso % (Auto) 0.2, Absolute Neuts (auto) 10.6 H, Absolute Lymphs (auto) 0.46 L, Nucleated RBC % 0 02/21/19 06:18: Sodium 134 L, Potassium 3.7, Chloride 97 L, Carbon Dioxide 28.0, BUN 24 H, Creatinine 5.13 H, Estim Creat Clear Calc 10.67, Est GFR (MDRD) Af Amer 12 L, Est GFR (MDRD) Non-Af 10 L, BUN/Creatinine Ratio 4.7 L, Glucose 116 H , Calcium 7.7 L, Phosphorus 3.7, Albumin 1.4 L Current Medications Acetaminophen (Tylenol) 650 mg PO Q6H PRN PRN PRN Reason: Pain Score 1-3/Temp > 100.7 F Last Admin: 02/19/19 09:47 Dose: 650 mg Documented by: Aspirin (Ecotrin) 81 mg PO DAILY@0800 [facility] Last Admin: 02/20/19 12:59 Dose: Not Given Documented by: Bupropion HCl (Wellbutrin Xl) 300 mg PO DAILY [facility] Last Admin: 02/20/19 16:52 Dose: Not Given Documented by: Dextrose (D50w Syringe) 0 gm IV X1 PRN; Protocol PRN Reason: Hypoglycemia Last Admin: 02/20/19 16:50 Dose: 12.5 gm Documented by: Emollient Ointment (Eucerin Intensive Repair) 1 applic TOPICAL 4X/DAY PRN PRN; Protocol PRN Reason: DRY SKIN Glucagon () 1 mg IM .X1 PRN PRN Reason: Hypoglycemia Last Admin: 02/20/19 12:48 Dose: 1 mg Documented by: Guaifenesin (Robitussin) 20 ml PO Q4H PRN PRN PRN Reason: COUGH Last Admin: 02/12/19 23:09 Dose: 20 ml Documented by: Heparin Sodium (Porcine) (Heparin Na) 5,000 unit SC Q8 [facility] Last Admin: 02/21/19 06:07 Dose: 5,000 unit Documented by: Hydralazine HCl (Apresoline Iv) 10 mg IV Q4H PRN PRN PRN Reason: SBP > 160 Sodium Chloride () 250 mls @ 15 mls/hr IV .[id number] PRN PRN Reason: Saline Flush Last Infusion: 02/17/19 12:20 Dose: Infused Documented by: Dextrose/Sodium Chloride (Dextrose 5%/0.9% Nacl) 1,000 mls @ 60 mls/hr IV .[id number] [facility] Last Admin: 02/20/19 23:27 Dose: 60 mls/hr Documented by: Levofloxacin (Levaquin Iv) 500 mg in 100 mls @ 100 mls/hr IV Q48H [facility] Insulin Human Lispro (Humalog Kwikpen (Bkc)) 0 unit SC ACHS [facility]; Protocol Last Admin: 02/21/19 06:08 Dose: Not Given Documented by: Lactic Acid (Lac-Hydrin, Amlactin) 1 applic TOPICAL TID [facility]; Protocol Last Admin: 02/21/19 06:08 Dose: 1 applicatio Documented by: Melatonin (Melatonin) 3 mg PO QHS PRN PRN PRN Reason: INSOMNIA Last Admin: 02/12/19 23:07 Dose: 3 mg Documented by: Metoclopramide HCl (Metoclopramide Hcl) 5 mg PO TIDAC [facility] Last Admin: 02/21/19 06:08 Dose: Not Given Documented by: Morphine Sulfate () 1 - 2 mg IV Q4H PRN PRN PRN Reason: Pain Score 1-10/10 Last Admin: 02/21/19 06:09 Dose: 2 mg Documented by: Nortriptyline HCl (Pamelor) 50 mg PO QHS [facility] Last Admin: 02/20/19 20:44 Dose: Not Given Documented by: Nystatin (Mycostatin Powder) 1 applic TOPICAL BID [facility]; Protocol Last Admin: 02/20/19 20:44 Dose: 1 applicatio Documented by: Ondansetron HCl (Zofran) 4 mg IV Q8H PRN PRN PRN Reason: NAUSEA/VOMITING Last Admin: 02/19/19 00:37 Dose: 4 mg Documented by: Oxycodone HCl (Oxyir) 5 mg PO Q4H PRN PRN PRN Reason: Pain Score 4-10/10 Last Admin: 02/19/19 14:39 Dose: 5 mg Documented by: Pregabalin (Lyrica) 50 mg PO BID [facility] Last Admin: 02/20/19 20:43 Dose: Not Given Documented by: Sodium Chloride () 10 - 40 ml IV UD PRN PRN Reason: SALINE FLUSH Last Admin: 02/20/19 23:27 Dose: 10 ml Documented by: Venlafaxine HCl (Effexor Xr) 150 mg PO DAILY [facility] Last Admin: 02/20/19 16:52 Dose: Not Given Documented by: Medical Necessity - Tobacco Use Smoking Status: Never smoker Assessment/Plan All Active Problems (Last Reviewed 02/12/19 @ 20:40 by Virgil Murray DO) Necrotizing soft tissue infection (Acute) Open wound of both lower extremities with complication (Acute) Calciphylaxis (Acute) Lower extremity weakness (Acute) Generalized weakness (Acute) Gastroparesis (Acute) Syncope (Acute) 43-year-old female with end-stage renal disease on peritoneal dialysis 1. Plan will be for patient to complete dialysis on Saturday and remove the temporary right IJ dialysis catheter at that time. Patient will be scheduled for a tunneled right possible left IJ catheter by Dr. Briones on Saturday afternoon. Did discuss with patient she was agreeable to proceed. Madelin Massey M.D. Pager: [phone] [facility] [address] [place] [address], [facility], [address] [place] [id number] Office: [phone] Code Visit Inpatient E&M: 30306 Subs Hosp L1
[2019-02-21] MEDS: buPROPion (XL) 300 MG TABLET.XL PO (09:42)
[2019-02-21] MEDS: Pregabalin 50 MG Capsule PO ×2 (09:42→22:04)
[2019-02-21] MEDS: Venlafaxine XR 150 MG Capsule PO (09:42)
[2019-02-21] MEDS: levoFLOXacin IV 500 MG/100 ML BAG 100 MG IV (09:42)
[2019-02-21] MEDS: Nystatin Powder 15gm Bottle 1 APPLIC TOPICAL ×2 (09:43→22:06)
[2019-02-21] MEDS: oxyCODONE 5 MG Tablet PO (09:48)
[2019-02-21] MEDS: Metoclopramide 5 MG TABLET PO ×2 (11:04→16:29)
--- NOTE | 2019-02-21 11:10 | PCM.PN.HOSP ---
Patient Problems: Active and Suspected Problems (Last Reviewed 02/12/19 @ 20:40 by Virgil Murray DO) Gastroparesis (Acute) Subjective: Patient seen and examined. She has no complaints today. She had a temporary dialysis catheter put in yesterday and she was able to have hemodialysis. Review of symptoms otherwise negative. She is for placement of tunneled dialysis catheter on Saturday by Dr. Briones. Vitals/I&O's: Vital Signs Temp Pulse Resp BP Pulse Ox 98.1 F 90 18 132/64 H 94 02/21/19 09:36 02/21/19 09:36 02/21/19 09:36 02/21/19 09:36 02/21/19 09:36 Oxygen Flow Rate (L/min) 2 Oxygen Delivery Method Room Air Weight: 268 lb 4.841 oz Body Mass Index (BMI) 48.4 Finger Stick Blood Glucose 98 Intake and Output for Last 24 Hours 02/19/19 02/20/19 02/21/19 23:59 23:59 23:59 Intake Total 200 / 200 250 / 250 715 / 715 Output Total 50 / 50 0 / 0 Balance 150 / 150 250 / 250 715 / 715 General: Alert, Oriented x3, Cooperative, No apparent distress HEENT: Atraumatic, PERRLA, EOMI, Normocephalic Oral: Moist Mucosa Neck: Supple, No JVD, Negative Carotid Bruits Lungs: Clear to auscultation, Normal air movement, No rhonchi, No wheeze, No rales Cardiovascular: Regular rate, Regular Rhythm, Normal S1, Normal S2, No murmurs Abdomen: Bowel Sounds Present, Soft, Non Tender, Non-Distended, No Hepato-splenomegaly Extremities: No clubbing, No cyanosis, No edema, Capillary Refill Less than 3 Seconds; has temporal dialysis catheter in neck. Skin: - - has wound vac over surgical areas on both thighs Musculoskeletal: No Tenderness to Palpation of Joints or Extremities Lymphatic: No Cervical, Supraclavicular, or Inguinal Adenopathy Neurological: Cranial nerves II-XII grossly intact, Neuro grossly intact, Motor Exam 5/5 strength throughout Psych/Mental Status: Normal Affect, Appropriate, Alert and oriented to time, place, person, mood and affect Microbiology Past 72 Hours 02/16/19 Unknown Tissue - Leg, Right Gram Stain - Final 02/16/19 Unknown Tissue - Leg, Right Wound Culture - Final No growth aerobically. 02/16/19 Unknown Tissue - Leg, Right Anaerobic Culture - Preliminary No growth in 48 hours. 02/16/19 Unknown Tissue - Leg, Left Gram Stain - Final 02/16/19 Unknown Tissue - Leg, Left Wound Culture - Final No growth aerobically. 02/16/19 Unknown Tissue - Leg, Left Anaerobic Culture - Preliminary No growth in 48 hours. 02/13/19 13:40 Fluid - Peritoneal Gram Stain - Final 02/13/19 13:40 Fluid - Peritoneal Body Fluid Culture - Final Culture exhibits no growth. 02/13/19 13:40 Fluid - Peritoneal Anaerobic Culture - Final No growth in 5 days. Laboratory Results 02/18/19 10:10: Fl Pathologist Comment Reviewed 02/20/19 12:09: POC Glucose 67 L 02/20/19 13:05: POC Glucose 91 02/20/19 16:45: POC Glucose 65 L 02/20/19 17:12: POC Glucose 101 02/20/19 20:39: POC Glucose 70 02/21/19 06:05: POC Glucose 111 H 02/21/19 06:18: WBC 12.0 H, RBC 3.35 L, Hgb 8.3 L, Hct 25.6 L, MCV 76.4 L, MCH 24.8 L, MCHC 32.4, RDW Std Deviation 49.1 H, RDW Coeff of Lu 17.7 H, Plt Count 203, MPV 9.5, Immature Gran % (Auto) 0.900, Neut % (Auto) 88.5 H, Lymph % (Auto) 3.8 L, [place] % (Auto) 6.1, Eos % (Auto) 0.5, Baso % (Auto) 0.2, Absolute Neuts (auto) 10.6 H, Absolute Lymphs (auto) 0.46 L, Nucleated RBC % 0 02/21/19 06:18: Sodium 134 L, Potassium 3.7, Chloride 97 L, Carbon Dioxide 28.0, BUN 24 H, Creatinine 5.13 H, Estim Creat Clear Calc 10.67, Est GFR (MDRD) Af Amer 12 L, Est GFR (MDRD) Non-Af 10 L, BUN/Creatinine Ratio 4.7 L, Glucose 116 H, Calcium 7.7 L, Phosphorus 3.7, Albumin 1.4 L Current Medications Acetaminophen (Tylenol) 650 mg PO Q6H PRN PRN PRN Reason: Pain Score 1-3/Temp > 100.7 F Last Admin: 02/19/19 09:47 Dose: 650 mg Documented by: Aspirin (Ecotrin) 81 mg PO DAILY@0800 [facility] Last Admin: 02/20/19 12:59 Dose: Not Given Documented by: Bupropion HCl (Wellbutrin Xl) 300 mg PO DAILY [facility] Last Admin: 02/21/19 09:42 Dose: 300 mg Documented by: Dextrose (D50w Syringe) 0 gm IV X1 PRN; Protocol PRN Reason: Hypoglycemia Last Admin: 02/20/19 16:50 Dose: 12.5 gm Documented by: Emollient Ointment (Eucerin Intensive Repair) 1 applic TOPICAL 4X/DAY PRN PRN; Protocol PRN Reason: DRY SKIN Glucagon () 1 mg IM .X1 PRN PRN Reason: Hypoglycemia Last Admin: 02/20/19 12:48 Dose: 1 mg Documented by: Guaifenesin (Robitussin) 20 ml PO Q4H PRN PRN PRN Reason: COUGH Last Admin: 02/12/19 23:09 Dose: 20 ml Documented by: Heparin Sodium (Porcine) (Heparin Na) 5,000 unit SC Q8 [facility] Last Admin: 02/21/19 06:07 Dose: 5,000 unit Documented by: Hydralazine HCl (Apresoline Iv) 10 mg IV Q4H PRN PRN PRN Reason: SBP > 160 Sodium Chloride () 250 mls @ 15 mls/hr IV .[id number] PRN PRN Reason: Saline Flush Last Infusion: 02/17/19 12:20 Dose: Infused Documented by: Dextrose/Sodium Chloride (Dextrose 5%/0.9% Nacl) 1,000 mls @ 60 mls/hr IV .[id number] Last Infusion: 02/21/19 10:42 Dose: 60 mls/hr Documented by: Levofloxacin (Levaquin Iv) 500 mg in 100 mls @ 100 mls/hr IV Q48H [facility] Last Infusion: 02/21/19 10:42 Dose: Infused Documented by: Insulin Human Lispro (Humalog Kwikpen (Bkc)) 0 unit SC ACHS [facility]; Protocol Last Admin: 02/21/19 11:03 Dose: Not Given Documented by: Lactic Acid (Lac-Hydrin, Amlactin) 1 applic TOPICAL TID [facility]; Protocol Last Admin: 02/21/19 06:08 Dose: 1 applicatio Documented by: Melatonin (Melatonin) 3 mg PO QHS PRN PRN PRN Reason: INSOMNIA Last Admin: 02/12/19 23:07 Dose: 3 mg Documented by: Metoclopramide HCl (Metoclopramide Hcl) 5 mg PO TIDAC [facility] Last Admin: 02/21/19 11:04 Dose: 5 mg Documented by: Morphine Sulfate () 1 - 2 mg IV Q4H PRN PRN PRN Reason: Pain Score 1-10/10 Last Admin: 02/21/19 06:09 Dose: 2 mg Documented by: Nortriptyline HCl (Pamelor) 50 mg PO QHS [facility] Last Admin: 02/20/19 20:44 Dose: Not Given Documented by: Nystatin (Mycostatin Powder) 1 applic TOPICAL BID [facility]; Protocol Last Admin: 02/21/19 09:43 Dose: 1 applicatio Documented by: Ondansetron HCl (Zofran) 4 mg IV Q8H PRN PRN PRN Reason: NAUSEA/VOMITING Last Admin: 02/19/19 00:37 Dose: 4 mg Documented by: Oxycodone HCl (Oxyir) 5 mg PO Q4H PRN PRN PRN Reason: Pain Score 4-10/10 Last Admin: 02/21/19 09:48 Dose: 5 mg Documented by: Pregabalin (Lyrica) 50 mg PO BID [facility] Last Admin: 02/21/19 09:42 Dose: 50 mg Documented by: Sodium Chloride () 10 - 40 ml IV UD PRN PRN Reason: SALINE FLUSH Last Admin: 02/20/19 23:27 Dose: 10 ml Documented by: Venlafaxine HCl (Effexor Xr) 150 mg PO DAILY [facility] Last Admin: 02/21/19 09:42 Dose: 150 mg Documented by: STROKE Vital Signs/Narrative: Vital Signs Temp Pulse Resp BP Pulse Ox 02/21/19 09:36 98.1 F 90 18 132/64 H 94 Medical Necessity - Tobacco Use Smoking Status: Never smoker Assessment/Plan All Active Problems (Last Reviewed 02/12/19 @ 20:40 by Virgil Murray DO) Necrotizing soft tissue infection (Acute) Open wound of both lower extremities with complication (Acute) Calciphylaxis (Acute) Lower extremity weakness (Acute) Generalized weakness (Acute) Gastroparesis (Acute) Syncope (Acute) 1. Acute gastroparesis: resolved. on reglan 5mg tid 2. Bilateral thigh skin necrosis s/p incision and drainage and excisional debridement. Today is POD 4 has wound vac on both thighs. preliminary wound cultures are negative; on PO levaquin. plastic surgery on board PT/OT 3. Hyponatremia: chronic. stable 4. ESRD: peritoneal catheter is malfunctioning had temporary dialysis catheter placed yesterday; she had hemodialysis yesterday she wont be accepted in the SNF with the temporary dialysis catheter. She is therefore to have Tunneled dialysis catheter placed on Saturday by Dr Briones to have dialysis on Saturday, and temporary catheter to be pulled after dialysis on Saturday. to follow up with Dr Patricia on oupatient basis for revision of malfunctioning peritoneal dialysis catheter 5. Type 2 diabetes mellitus: Diet-controlled: On insulin sliding scale. had a few hypoglycemic episodes yesterday, with blood sugar going down to 65 at its lowest. currently stable Accu-Cheks before meals at bedtime. 6. Anxiety and depression: On Effexor nortriptyline as well as wellbutrin 7. Anemia of chronic disease: Hb is 8.3 today. stable. Will monitor. DVT Prophylaxis: heparin Disposition: awaiting Dc to SNF, pending tunnelled dialysis catheter placement. Code Visit Inpatient E&M: 94147 Subs Hosp L2
[2019-02-21] MEDS: Nepro with Carbsteady 237 ML Liquid 120 ML PO (11:11)
[2019-02-21 11:16] LABS: Bedside Glucose 125 mg/dL (70-110)
--- NOTE | 2019-02-21 14:48 | NURSING ---
This nurse reviewed charting of SN Aicha
--- NOTE | 2019-02-21 14:58 | PN.RENAL_ITS ---
Patient Problems: Active and Suspected Problems (Last Reviewed 02/12/19 @ 20:40 by Virgil Murray DO) Gastroparesis (Acute) Subjective: more awake, responsive, less confused today. +BM yesterday. Tolerated hemodialysis well yesterday. - Physical Exam Vitals/I&O's: Vital Signs Temp Pulse Resp BP Pulse Ox 98.1 F 90 18 132/64 H 94 02/21/19 09:36 02/21/19 09:36 02/21/19 09:36 02/21/19 09:36 02/21/19 09:36 Oxygen Flow Rate (L/min) 2 Oxygen Delivery Method Room Air Weight: 121.7 kg Body Mass Index (BMI) 48.4 Finger Stick Blood Glucose 98 Intake and Output for Last 24 Hours 02/19/19 02/20/19 02/21/19 23:59 23:59 23:59 Intake Total 200 / 200 250 / 250 955 / 955 Output Total 50 / 50 0 / 0 Balance 150 / 150 250 / 250 955 / 955 General: Alert, Oriented x3, Cooperative, No apparent distress Lungs: Clear to auscultation Cardiovascular: Regular rate Abdomen: Bowel Sounds Present, Soft, Non Tender, Non-Distended, Obese Extremities: No edema Psych/Mental Status: Normal Affect, Appropriate, Alert and oriented to time, place, person, mood and affect Microbiology Past 72 Hours 02/16/19 Unknown Tissue - Leg, Right Gram Stain - Final 02/16/19 Unknown Tissue - Leg, Right Wound Culture - Final No growth aerobically. 02/16/19 Unknown Tissue - Leg, Right Anaerobic Culture - Preliminary No growth in 48 hours. 02/16/19 Unknown Tissue - Leg, Left Gram Stain - Final 02/16/19 Unknown Tissue - Leg, Left Wound Culture - Final No growth aerobically. 02/16/19 Unknown Tissue - Leg, Left Anaerobic Culture - Preliminary No growth in 48 hours. 02/13/19 13:40 Fluid - Peritoneal Gram Stain - Final 02/13/19 13:40 Fluid - Peritoneal Body Fluid Culture - Final Culture exhibits no growth. 02/13/19 13:40 Fluid - Peritoneal Anaerobic Culture - Final No growth in 5 days. Laboratory Results 02/20/19 16:45: POC Glucose 65 L 02/20/19 17:12: POC Glucose 101 02/20/19 20:39: POC Glucose 70 02/21/19 06:05: POC Glucose 111 H 02/21/19 06:18: WBC 12.0 H, RBC 3.35 L, Hgb 8.3 L, Hct 25.6 L, MCV 76.4 L, MCH 24.8 L, MCHC 32.4, RDW Std Deviation 49.1 H, RDW Coeff of Lu 17.7 H, Plt Count 203, MPV 9.5, Immature Gran % (Auto) 0.900, Neut % (Auto) 88.5 H, Lymph % (Auto) 3.8 L, [place] % (Auto) 6.1, Eos % (Auto) 0.5, Baso % (Auto) 0.2, Absolute Neuts (auto) 10.6 H, Absolute Lymphs (auto) 0.46 L, Nucleated RBC % 0 02/21/19 06:18: Sodium 134 L, Potassium 3.7, Chloride 97 L, Carbon Dioxide 28.0, BUN 24 H, Creatinine 5.13 H, Estim Creat Clear Calc 10.67, Est GFR (MDRD) Af Amer 12 L, Est GFR (MDRD) Non-Af 10 L, BUN/Creatinine Ratio 4.7 L, Glucose 116 H , Calcium 7.7 L, Phosphorus 3.7, Albumin 1.4 L 02/21/19 11:02: POC Glucose 125 H Current Medications Acetaminophen (Tylenol) 650 mg PO Q6H PRN PRN PRN Reason: Pain Score 1-3/Temp > 100.7 F Last Admin: 02/19/19 09:47 Dose: 650 mg Documented by: Aspirin (Ecotrin) 81 mg PO DAILY@0800 [facility] Last Admin: 02/20/19 12:59 Dose: Not Given Documented by: Bupropion HCl (Wellbutrin Xl) 300 mg PO DAILY [facility] Last Admin: 02/21/19 09:42 Dose: 300 mg Documented by: Dextrose (D50w Syringe) 0 gm IV X1 PRN; Protocol PRN Reason: Hypoglycemia Last Admin: 02/20/19 16:50 Dose: 12.5 gm Documented by: Emollient Ointment (Eucerin Intensive Repair) 1 applic TOPICAL 4X/DAY PRN PRN; Protocol PRN Reason: DRY SKIN Glucagon () 1 mg IM .X1 PRN PRN Reason: Hypoglycemia Last Admin: 02/20/19 12:48 Dose: 1 mg Documented by: Guaifenesin (Robitussin) 20 ml PO Q4H PRN PRN PRN Reason: COUGH Last Admin: 02/12/19 23:09 Dose: 20 ml Documented by: Heparin Sodium (Porcine) (Heparin Na) 5,000 unit SC Q8 [facility] Last Admin: 02/21/19 06:07 Dose: 5,000 unit Documented by: Hydralazine HCl (Apresoline Iv) 10 mg IV Q4H PRN PRN PRN Reason: SBP > 160 Sodium Chloride () 250 mls @ 15 mls/hr IV .[id number] PRN PRN Reason: Saline Flush Last Infusion: 02/17/19 12:20 Dose: Infused Documented by: Dextrose/Sodium Chloride (Dextrose 5%/0.9% Nacl) 1,000 mls @ 60 mls/hr IV .[id number] [facility] Last Infusion: 02/21/19 10:42 Dose: 60 mls/hr Documented by: Levofloxacin (Levaquin Iv) 500 mg in 100 mls @ 100 mls/hr IV Q48H [facility] Last Infusion: 02/21/19 10:42 Dose: Infused Documented by: Insulin Human Lispro (Humalog Kwikpen (Bkc)) 0 unit SC ACHS [facility]; Protocol Last Admin: 02/21/19 11:03 Dose: Not Given Documented by: Lactic Acid (Lac-Hydrin, Amlactin) 1 applic TOPICAL TID [facility]; Protocol Last Admin: 02/21/19 06:08 Dose: 1 applicatio Documented by: Melatonin (Melatonin) 3 mg PO QHS PRN PRN PRN Reason: INSOMNIA Last Admin: 02/12/19 23:07 Dose: 3 mg Documented by: Metoclopramide HCl (Metoclopramide Hcl) 5 mg PO TIDAC [facility] Last Admin: 02/21/19 11:04 Dose: 5 mg Documented by: Morphine Sulfate () 1 - 2 mg IV Q4H PRN PRN PRN Reason: Pain Score 1-10/10 Last Admin: 02/21/19 06:09 Dose: 2 mg Documented by: Nortriptyline HCl (Pamelor) 50 mg PO QHS [facility] Last Admin: 02/20/19 20:44 Dose: Not Given Documented by: Nystatin (Mycostatin Powder) 1 applic TOPICAL BID [facility]; Protocol Last Admin: 02/21/19 09:43 Dose: 1 applicatio Documented by: Ondansetron HCl (Zofran) 4 mg IV Q8H PRN PRN PRN Reason: NAUSEA/VOMITING Last Admin: 02/19/19 00:37 Dose: 4 mg Documented by: Oxycodone HCl (Oxyir) 5 mg PO Q4H PRN PRN PRN Reason: Pain Score 4-10/10 Last Admin: 02/21/19 09:48 Dose: 5 mg Documented by: Pregabalin (Lyrica) 50 mg PO BID [facility] Last Admin: 02/21/19 09:42 Dose: 50 mg Documented by: Sodium Chloride () 10 - 40 ml IV UD PRN PRN Reason: SALINE FLUSH Last Admin: 02/20/19 23:27 Dose: 10 ml Documented by: Venlafaxine HCl (Effexor Xr) 150 mg PO DAILY [facility] Last Admin: 02/21/19 09:42 Dose: 150 mg Documented by: Medical Necessity - Tobacco Use Smoking Status: Never smoker Assessment/Plan All Active Problems (Last Reviewed 02/12/19 @ 20:40 by Virgil Murray DO) Necrotizing soft tissue infection (Acute) Open wound of both lower extremities with complication (Acute) Calciphylaxis (Acute) Lower extremity weakness (Acute) Generalized weakness (Acute) Gastroparesis (Acute) Syncope (Acute) 1. ESRD hemodialysis next on Saturday with temp hemodialysis catheter. Will need it converted to tunneled catheter prior to discharge. Dr. Patricia to assess PD catheter at a later time. Pt has backup hemodialysis scheduled [facility] at chronic center. will see if PD catheter works any better with BM 2. Anemia epo on dialysis 3. Gastroparesis asymptomatic 4. HTN stable 5. Hx obstructive uropathy 6. Skin necrosis bilat thighs s/p debridement, wound vac. 7. confusion resolved
[2019-02-21] MEDS: Dextrose 5%/0.9% NaCl 1,000 ML 60 ML IV (16:28)
[2019-02-21 16:56] LABS: Bedside Glucose 101 mg/dL (70-110)
[2019-02-21] MEDS: Nortriptyline 25 MG Capsule 50 MG PO (22:05)
[2019-02-21 22:31] LABS: Bedside Glucose 109 mg/dL (70-110)
[2019-02-22] VITALS (10 sets, daily range): BP systolic 112–185; BP diastolic 46–97; PULSE 84–95; RESP 16–18; TEMP 36.6–37; O2SAT 92–99
[2019-02-22] MEDS: Heparin Injection (Vial) 5,000 UNIT/ML VIAL 5000 UNIT SC ×3 (06:36→21:46)
[2019-02-22] MEDS: Ammonium Lactate 225 gm Bottle 1 APPLIC TOPICAL ×2 (06:36→15:46)
[2019-02-22] MEDS: Metoclopramide 5 MG TABLET PO ×2 (06:36→15:44)
[2019-02-22 07:01] LABS: Bedside Glucose 81 mg/dL (70-110)
[2019-02-22 07:55] LABS: Absolute Lymphocyte Count 0.63 X10^3/uL (0.83-4.51); Absolute Neutrophil Count 9.6 X10^3/uL (2.0-7.7); Basophil# 0.02 X10^3/uL; Basophil% 0.2 % (0-1); Eosinophil# 0.15 X10^3/uL; Eosinophils% 1.3 % (0-5); Hematocrit 24.6 % (37-47); Hemoglobin 7.8 g/dL (12.0-15.0); Lymphocyte # 0.63 X10^3/ul (4.0); Lymphocyte % 5.5 % (19-41); Mean Corp Hgb Conc 31.7 g/dL (32-36); Mean Corpuscular Hgb 24.3 pg (27.0-32.0); Mean Corpuscular Volume 76.6 fL (81-99); Mean Platelet Vol. 9.2 fl (6.2-12.0); Monocyte# 0.78 X10^3/uL; Monocyte% 6.9 % (0-10); NRBC Flagged by Analyzer 0 % (0-5); Neutrophil # 9.58 X10^3/uL (2.7-7.7); Neutrophil % 84.3 % (47-70); Platelet Count 182 K/mm3 (150-450); RBC Distribution Width CV 17.4 % (11.6-14.6); RBC Distribution Width SD 48.9 fl (35.1-43.9); Red Blood Count 3.21 M/mm3 (4.2-5.4); White Blood Count 11.4 K/mm3 (4.4-11.0)
[2019-02-22 08:14] LABS: Albumin, Serum 1.4 g/dL (3.2-5.0); BUN 30 mg/dL (7-18); BUN/Creat Ratio 4.9 RATIO (10-20); Calcium,Total 7.7 mg/dL (8.5-10.1); Chloride 101 mmol/L (98-107); Creatinine, Serum 6.08 mg/dL (0.55-1.02); EST Glomerular Filtration Rate 8 mL/min (>60); Est Glom Filt Rate - Afr Amer 10 mL/min (>60); Glucose 84 mg/dL (74-106); Phosphorus 3.9 mg/dL (2.5-4.9); Potassium 3.8 mmol/L (3.5-5.1); Sodium Level 136 mmol/L (136-145)
[2019-02-22] MEDS: 0.9% Saline Lock 10 ML Syringe IV (08:14)
--- NOTE | 2019-02-22 08:55 | PN.SURG_ITS ---
Patient Problems: Active and Suspected Problems (Last Reviewed 02/12/19 @ 20:40 by Virgil Murray DO) Gastroparesis (Acute) Subjective: Plan for dialysis today. Patient is on the schedule for Saturday afternoon for tunneled dialysis catheter. We will plan to remove the temporary dialysis catheter after dialysis today - Physical Exam Vitals/I&O's: Vital Signs Temp Pulse Resp BP Pulse Ox 97.9 F 88 18 140/97 H 99 02/22/19 04:00 02/22/19 06:55 02/22/19 04:00 02/22/19 04:00 02/22/19 04:00 Oxygen Flow Rate (L/min) 2 Oxygen Delivery Method Room Air Weight: 273 lb 9.498 oz Body Mass Index (BMI) 48.4 Finger Stick Blood Glucose 98 Intake and Output for Last 24 Hours 02/20/19 02/21/19 02/22/19 23:59 23:59 23:59 Intake Total 250 / 250 1361 / 1361 848 / 848 Output Total 0 / 0 375 / 375 Balance 250 / 250 1361 / 1361 473 / 473 General: Alert - But does fall back asleep quickly, Cooperative, No apparent distress Lungs: Normal air movement Cardiovascular: Regular rate Abdomen: Soft, Non Tender, Non-Distended, - - Peritoneal dialysis catheter in place Neurological: Cranial nerves II-XII grossly intact Microbiology Past 72 Hours 02/16/19 Unknown Tissue - Leg, Right Gram Stain - Final 02/16/19 Unknown Tissue - Leg, Right Wound Culture - Final No growth aerobically. 02/16/19 Unknown Tissue - Leg, Right Anaerobic Culture - Preliminary No growth in 48 hours. 02/16/19 Unknown Tissue - Leg, Left Gram Stain - Final 02/16/19 Unknown Tissue - Leg, Left Wound Culture - Final No growth aerobically. 02/16/19 Unknown Tissue - Leg, Left Anaerobic Culture - Preliminary No growth in 48 hours. 02/13/19 13:40 Fluid - Peritoneal Gram Stain - Final 02/13/19 13:40 Fluid - Peritoneal Body Fluid Culture - Final Culture exhibits no growth. 02/13/19 13:40 Fluid - Peritoneal Anaerobic Culture - Final No growth in 5 days. Laboratory Results 02/21/19 11:02: POC Glucose 125 H 02/21/19 16:26: POC Glucose 101 02/21/19 22:00: POC Glucose 109 02/22/19 06:41: POC Glucose 81 02/22/19 07:30: WBC 11.4 H, RBC 3.21 L, Hgb 7.8 L, Hct 24.6 L, MCV 76.6 L, MCH 24.3 L, MCHC 31.7 L, RDW Std Deviation 48.9 H, RDW Coeff of Lu 17.4 H, Plt Count 182, MPV 9.2, Immature Gran % (Auto) 1.800 H, Neut % (Auto) 84.3 H, Lymph % (Auto) 5.5 L, [place] % (Auto) 6.9, Eos % (Auto) 1.3, Baso % (Auto) 0.2, Absolute Neuts (auto) 9.6 H, Absolute Lymphs (auto) 0.63 L, Nucleated RBC % 0 02/22/19 07:30: Sodium 136, Potassium 3.8, Chloride 101, Carbon Dioxide 25.0, BUN 30 H, Creatinine 6.08 H, Estim Creat Clear Calc 9.00, Est GFR (MDRD) Af Amer 10 L, Est GFR (MDRD) Non-Af 8 L, BUN/Creatinine Ratio 4.9 L, Glucose 84, Calcium 7.7 L, Phosphorus 3.9, Albumin 1.4 L Current Medications Acetaminophen (Tylenol) 650 mg PO Q6H PRN PRN PRN Reason: Pain Score 1-3/Temp > 100.7 F Last Admin: 02/19/19 09:47 Dose: 650 mg Documented by: Aspirin (Ecotrin) 81 mg PO DAILY@0800 [facility] Last Admin: 02/20/19 12:59 Dose: Not Given Documented by: Bupropion HCl (Wellbutrin Xl) 300 mg PO DAILY [facility] Last Admin: 02/21/19 09:42 Dose: 300 mg Documented by: Dextrose (D50w Syringe) 0 gm IV X1 PRN; Protocol PRN Reason: Hypoglycemia Last Admin: 02/20/19 16:50 Dose: 12.5 gm Documented by: Emollient Ointment (Eucerin Intensive Repair) 1 applic TOPICAL 4X/DAY PRN PRN; Protocol PRN Reason: DRY SKIN Glucagon () 1 mg IM .X1 PRN PRN Reason: Hypoglycemia Last Admin: 02/20/19 12:48 Dose: 1 mg Documented by: Guaifenesin (Robitussin) 20 ml PO Q4H PRN PRN PRN Reason: COUGH Last Admin: 02/12/19 23:09 Dose: 20 ml Documented by: Heparin Sodium (Porcine) (Heparin Na) 5,000 unit SC Q8 [facility] Last Admin: 02/22/19 06:36 Dose: 5,000 unit Documented by: Hydralazine HCl (Apresoline Iv) 10 mg IV Q4H PRN PRN PRN Reason: SBP > 160 Sodium Chloride () 250 mls @ 15 mls/hr IV .[id number] PRN PRN Reason: Saline Flush Last Infusion: 02/17/19 12:20 Dose: Infused Documented by: Dextrose/Sodium Chloride (Dextrose 5%/0.9% Nacl) 1,000 mls @ 60 mls/hr IV .[id number] [facility] Last Infusion: 02/22/19 08:15 Dose: 60 mls/hr Documented by: Levofloxacin (Levaquin Iv) 500 mg in 100 mls @ 100 mls/hr IV Q48H [facility] Last Infusion: 02/21/19 10:42 Dose: Infused Documented by: Insulin Human Lispro (Humalog Kwikpen (Bkc)) 0 unit SC ACHS [facility]; Protocol Last Admin: 02/22/19 06:46 Dose: Not Given Documented by: Lactic Acid (Lac-Hydrin, Amlactin) 1 applic TOPICAL TID [facility]; Protocol Last Admin: 02/22/19 06:36 Dose: 1 applicatio Documented by: Melatonin (Melatonin) 3 mg PO QHS PRN PRN PRN Reason: INSOMNIA Last Admin: 02/12/19 23:07 Dose: 3 mg Documented by: Metoclopramide HCl (Metoclopramide Hcl) 5 mg PO TIDAC [facility] Last Admin: 02/22/19 06:36 Dose: 5 mg Documented by: Morphine Sulfate () 1 - 2 mg IV Q4H PRN PRN PRN Reason: Pain Score 1-10/10 Last Admin: 02/21/19 06:09 Dose: 2 mg Documented by: Nortriptyline HCl (Pamelor) 50 mg PO QHS [facility] Last Admin: 02/21/19 22:05 Dose: 50 mg Documented by: Nystatin (Mycostatin Powder) 1 applic TOPICAL BID [facility]; Protocol Last Admin: 02/21/19 22:06 Dose: 1 applicatio Documented by: Ondansetron HCl (Zofran) 4 mg IV Q8H PRN PRN PRN Reason: NAUSEA/VOMITING Last Admin: 02/19/19 00:37 Dose: 4 mg Documented by: Oxycodone HCl (Oxyir) 5 mg PO Q4H PRN PRN PRN Reason: Pain Score 4-10/10 Last Admin: 02/21/19 09:48 Dose: 5 mg Documented by: Pregabalin (Lyrica) 50 mg PO BID [facility] Last Admin: 02/21/19 22:04 Dose: 50 mg Documented by: Sodium Chloride () 10 - 40 ml IV UD PRN PRN Reason: SALINE FLUSH Last Admin: 02/22/19 08:14 Dose: 10 ml Documented by: Venlafaxine HCl (Effexor Xr) 150 mg PO DAILY [facility] Last Admin: 02/21/19 09:42 Dose: 150 mg Documented by: Medical Necessity - Tobacco Use Smoking Status: Never smoker Assessment/Plan All Active Problems (Last Reviewed 02/12/19 @ 20:40 by Virgil Murray DO) Necrotizing soft tissue infection (Acute) Open wound of both lower extremities with complication (Acute) Calciphylaxis (Acute) Lower extremity weakness (Acute) Generalized weakness (Acute) Gastroparesis (Acute) Syncope (Acute) 43-year-old female with end-stage renal disease on peritoneal dialysis, need for hemodialysis 1. Plan will be for patient to complete dialysis today and remove the temporary right IJ dialysis catheter at that time. Patient will be scheduled for a tunneled right possible left IJ catheter by Dr. Briones on Saturday afternoon. Did discuss with patient she was agreeable to proceed. Madelin Massey M.D. Pager: [phone] [facility] [address] [place] [address], [facility] [address] [place] [address] Office: [phone] Code Visit Inpatient E&M: 74712 [facility] L[facility]
[2019-02-22 11:25] LABS: Bedside Glucose 92 mg/dL (70-110)
--- NOTE | 2019-02-22 11:26 | PN_ITS ---
Patient Problems: Active and Suspected Problems (Last Reviewed 02/12/19 @ 20:40 by Virgil Murray DO) Gastroparesis (Acute) Subjective: Patient seen and examined. She has no complaints. Review of systems otherwise negative. Labs and vitals reviewed. She is for dialysis today. Vitals/I&O's: Vital Signs Temp Pulse Resp BP Pulse Ox 98.1 F 86 16 159/53 H 92 02/22/19 10:00 02/22/19 10:00 02/22/19 10:00 02/22/19 10:00 02/22/19 10:00 Oxygen Flow Rate (L/min) 2 Oxygen Delivery Method Room Air Weight: 273 lb 9.498 oz Body Mass Index (BMI) 48.4 Finger Stick Blood Glucose 98 Intake and Output for Last 24 Hours 02/20/19 02/21/19 02/22/19 23:59 23:59 23:59 Intake Total 250 / 250 1361 / 1361 848 / 848 Output Total 0 / 0 375 / 375 Balance 250 / 250 1361 / 1361 473 / 473 General: Alert, Oriented x3, Cooperative, No apparent distress HEENT: Atraumatic, PERRLA, EOMI, Normocephalic Oral: Moist Mucosa Neck: Supple, No JVD, Negative Carotid Bruits Lungs: Clear to auscultation, Normal air movement, No rhonchi, No wheeze, No rales Cardiovascular: Regular rate, Regular Rhythm, Normal S1, Normal S2, No murmurs Abdomen: Bowel Sounds Present, Soft, Non Tender, Non-Distended, No Hepato- splenomegaly Extremities: No clubbing, No cyanosis, No edema, Capillary Refill Less than 3 Seconds; has temporal dialysis catheter in neck. Skin: - - has wound vac over surgical areas on both thighs Musculoskeletal: No Tenderness to Palpation of Joints or Extremities Lymphatic: No Cervical, Supraclavicular, or Inguinal Adenopathy Neurological: Cranial nerves II-XII grossly intact, Neuro grossly intact, Motor Exam 5/5 strength throughout Psych/Mental Status: Normal Affect, Appropriate, Alert and oriented to time, place, person, mood and affect Microbiology Past 72 Hours 02/16/19 Unknown Tissue - Leg, Right Gram Stain - Final 02/16/19 Unknown Tissue - Leg, Right Wound Culture - Final No growth aerobically. 02/16/19 Unknown Tissue - Leg, Right Anaerobic Culture - Preliminary No growth in 48 hours. 02/16/19 Unknown Tissue - Leg, Left Gram Stain - Final 02/16/19 Unknown Tissue - Leg, Left Wound Culture - Final No growth aerobically. 02/16/19 Unknown Tissue - Leg, Left Anaerobic Culture - Preliminary No growth in 48 hours. 02/13/19 13:40 Fluid - Peritoneal Gram Stain - Final 02/13/19 13:40 Fluid - Peritoneal Body Fluid Culture - Final Culture exhibits no growth. 02/13/19 13:40 Fluid - Peritoneal Anaerobic Culture - Final No growth in 5 days. Laboratory Results 02/21/19 16:26: POC Glucose 101 02/21/19 22:00: POC Glucose 109 02/22/19 06:41: POC Glucose 81 02/22/19 07:30: WBC 11.4 H, RBC 3.21 L, Hgb 7.8 L, Hct 24.6 L, MCV 76.6 L, MCH 24.3 L, MCHC 31.7 L, RDW Std Deviation 48.9 H, RDW Coeff of Lu 17.4 H, Plt Count 182, MPV 9.2, Immature Gran % (Auto) 1.800 H, Neut % (Auto) 84.3 H, Lymph % (Auto) 5.5 L, [place] % (Auto) 6.9, Eos % (Auto) 1.3, Baso % (Auto) 0.2, Absolute Neuts (auto) 9.6 H, Absolute Lymphs (auto) 0.63 L, Nucleated RBC % 0 02/22/19 07:30: Sodium 136, Potassium 3.8, Chloride 101, Carbon Dioxide 25.0, BUN 30 H, Creatinine 6.08 H, Estim Creat Clear Calc 9.00, Est GFR (MDRD) Af Amer 10 L, Est GFR (MDRD) Non-Af 8 L, BUN/Creatinine Ratio 4.9 L, Glucose 84, Calcium 7.7 L, Phosphorus 3.9, Albumin 1.4 L 02/22/19 11:23: POC Glucose 92 Current Medications Acetaminophen (Tylenol) 650 mg PO Q6H PRN PRN PRN Reason: Pain Score 1-3/Temp > 100.7 F Last Admin: 02/19/19 09:47 Dose: 650 mg Documented by: Aspirin (Ecotrin) 81 mg PO DAILY@0800 [facility] Last Admin: 02/20/19 12:59 Dose: Not Given Documented by: Bupropion HCl (Wellbutrin Xl) 300 mg PO DAILY [facility] Last Admin: 02/21/19 09:42 Dose: 300 mg Documented by: Dextrose (D50w Syringe) 0 gm IV X1 PRN; Protocol PRN Reason: Hypoglycemia Last Admin: 02/20/19 16:50 Dose: 12.5 gm Documented by: Docusate Sodium (Colace) 100 mg PO BID [facility] Emollient Ointment (Eucerin Intensive Repair) 1 applic TOPICAL 4X/DAY PRN PRN; Protocol PRN Reason: DRY SKIN Glucagon () 1 mg IM .X1 PRN PRN Reason: Hypoglycemia Last Admin: 02/20/19 12:48 Dose: 1 mg Documented by: Guaifenesin (Robitussin) 20 ml PO Q4H PRN PRN PRN Reason: COUGH Last Admin: 02/12/19 23:09 Dose: 20 ml Documented by: Heparin Sodium (Porcine) (Heparin Na) 5,000 unit SC Q8 [facility] Last Admin: 02/22/19 06:36 Dose: 5,000 unit Documented by: Hydralazine HCl (Apresoline Iv) 10 mg IV Q4H PRN PRN PRN Reason: SBP > 160 Sodium Chloride () 250 mls @ 15 mls/hr IV .[id number] PRN PRN Reason: Saline Flush Last Infusion: 02/17/19 12:20 Dose: Infused Documented by: Dextrose/Sodium Chloride (Dextrose 5%/0.9% Nacl) 1,000 mls @ 60 mls/hr IV .[id number] [facility] Last Infusion: 02/22/19 08:15 Dose: 60 mls/hr Documented by: Levofloxacin (Levaquin Iv) 500 mg in 100 mls @ 100 mls/hr IV Q48H [facility] Last Infusion: 02/21/19 10:42 Dose: Infused Documented by: Insulin Human Lispro (Humalog Kwikpen (Bkc)) 0 unit SC ACHS [facility]; Protocol Last Admin: 02/22/19 06:46 Dose: Not Given Documented by: Lactic Acid (Lac-Hydrin, Amlactin) 1 applic TOPICAL TID [facility]; Protocol Last Admin: 02/22/19 06:36 Dose: 1 applicatio Documented by: Melatonin (Melatonin) 3 mg PO QHS PRN PRN PRN Reason: INSOMNIA Last Admin: 02/12/19 23:07 Dose: 3 mg Documented by: Metoclopramide HCl (Metoclopramide Hcl) 5 mg PO TIDAC [facility] Last Admin: 02/22/19 06:36 Dose: 5 mg Documented by: Morphine Sulfate () 1 - 2 mg IV Q4H PRN PRN PRN Reason: Pain Score 1-10/10 Last Admin: 02/21/19 06:09 Dose: 2 mg Documented by: Nortriptyline HCl (Pamelor) 50 mg PO QHS [facility] Last Admin: 02/21/19 22:05 Dose: 50 mg Documented by: Nystatin (Mycostatin Powder) 1 applic TOPICAL BID [facility]; Protocol Last Admin: 02/21/19 22:06 Dose: 1 applicatio Documented by: Ondansetron HCl (Zofran) 4 mg IV Q8H PRN PRN PRN Reason: NAUSEA/VOMITING Last Admin: 02/19/19 00:37 Dose: 4 mg Documented by: Oxycodone HCl (Oxyir) 5 mg PO Q4H PRN PRN PRN Reason: Pain Score 4-10/10 Last Admin: 02/21/19 09:48 Dose: 5 mg Documented by: Polyethylene Glycol (Miralax) 17 gm PO DAILY [facility] Pregabalin (Lyrica) 50 mg PO BID [facility] Last Admin: 02/21/19 22:04 Dose: 50 mg Documented by: Sodium Chloride () 10 - 40 ml IV UD PRN PRN Reason: SALINE FLUSH Last Admin: 02/22/19 08:14 Dose: 10 ml Documented by: Venlafaxine HCl (Effexor Xr) 150 mg PO DAILY [facility] Last Admin: 02/21/19 09:42 Dose: 150 mg Documented by: STROKE Vital Signs/Narrative: Vital Signs Temp Pulse Resp BP Pulse Ox 02/22/19 10:00 98.1 F 86 16 159/53 H 92 Medical Necessity - Tobacco Use Smoking Status: Never smoker Assessment/Plan All Active Problems (Last Reviewed 02/12/19 @ 20:40 by Virgil Murray DO) Necrotizing soft tissue infection (Acute) Open wound of both lower extremities with complication (Acute) Calciphylaxis (Acute) Lower extremity weakness (Acute) Generalized weakness (Acute) Gastroparesis (Acute) Syncope (Acute) 1. Acute gastroparesis: resolved. on reglan 5mg tid 2. Bilateral thigh skin necrosis * s/p incision and drainage and excisional debridement. Today is POD 5 * wound vac in place * preliminary wound cultures are negative * on PO levaquin. * plastic surgery on board * PT/OT 3. Hyponatremia: * chronic. stable 4. ESRD: * peritoneal catheter is malfunctioning * temporary dialysis catheter in place; for dialysis today * temorary catheter to be removed after dialysis today; she is to have placement of tunneled dialysis catheter tomorrow * will follow up with Dr Patricia on outpatient basis for revision of peritoneal dialysis catheter * 5. Type 2 diabetes mellitus: * Diet-controlled: * On insulin sliding scale. * Accu-Cheks before meals at bedtime. 6. Anxiety and depression: On Effexor nortriptyline as well as wellbutrin 7. Anemia of chronic disease: * Hb is 7.8 today. stable. * No evidence of overt bleeding. baseline Hb is ~ 8, though it has been as low as 7.2 in the past. * DVT Prophylaxis: heparin Disposition: awaiting Dc to SNF, pending tunnelled dialysis catheter placement. Code Visit Inpatient E&M: 78046 Subs Hosp L2
[2019-02-22] MEDS: Epoetin Alfa epbx 10,000 UNITS/ML 10000 UNIT SC (11:31)
[2019-02-22] MEDS: Dextrose 5%/0.9% NaCl 1,000 ML 60 ML IV (13:01)
--- NOTE | 2019-02-22 14:47 | NURSING ---
Per building mover, the mother of the patient, Veronica, took the patient's purse home with her.
[2019-02-22] MEDS: Docusate Sodium 100 MG Capsule PO ×2 (15:44→22:05)
[2019-02-22] MEDS: buPROPion (XL) 300 MG TABLET.XL PO (15:44)
[2019-02-22] MEDS: Venlafaxine XR 150 MG Capsule PO (15:45)
[2019-02-22] MEDS: Polyethylene Glycol 3350 17 GM PACKET PO (15:45)
[2019-02-22] MEDS: Nystatin Powder 15gm Bottle 1 APPLIC TOPICAL ×2 (15:45→21:49)
[2019-02-22] MEDS: Pregabalin 50 MG Capsule PO ×2 (15:45→22:01)
--- NOTE | 2019-02-22 15:47 | NURSING ---
All morning meds late due to dialysis.
--- NOTE | 2019-02-22 15:53 | DIALYSIS ---
Addendum entered by Jaye Rangel 02/22/19 16:13: corrected to PD times. Connected at 1450/Disconnected at 1540 (not 1340 as noted in error) Original Note: Hemodialysis x 3.5 hours completed, -1000ml off. Tolerated well. Post HD TX the RIJ temp CVC was pulled as ordered @ 1430. Pulled intact/pressure held to site x 5 mins then dressing applied. No Bleeding noted. 30min bed rest was completed while this RN at bedside and Vitals taken as follows. 1440 143/47 91 96% 98.2 16 1455 110/51 94 98% 98.2 16 1510 113/55 91 99% 98.4 16 1540 112/61 94 95% 98.3 16 no bleeding noted, bedside handout to Zonia/primary RN. Pt needs site and vital check at 1610 and again at 1710. Orders for post care reviewed and written. PD Catheter Assessment: Dressing changed/site benign. 1000ml of 1.5% dextrose instilled via manual exchange bag at 1450. filled at a moderate pace at wide open setting. Set to drain and permitted to drain until 1340. Despite putting pt on/off bedpan during this time rolling side to side, pt drained small amount of approximately 100ml pink tinged/no fibrin noted. Dr Odonnell was notified.
--- NOTE | 2019-02-22 15:55 | NURSING ---
this RN is now taking over post temp hemodialysis catheter removal checks. Dressing is C/D/I. No signs of bleeding. Site is soft to touch. VS are stable.
[2019-02-22] MEDS: Bisacodyl 5 MG Tablet 10 MG PO (16:15)
[2019-02-22 16:51] LABS: Bedside Glucose 139 mg/dL (70-110)
[2019-02-22] MEDS: oxyCODONE 5 MG Tablet PO (22:02)
[2019-02-22] MEDS: Nortriptyline 25 MG Capsule 50 MG PO (22:02)
[2019-02-23] VITALS (10 sets, daily range): BP systolic 108–136; BP diastolic 32–76; PULSE 81–89; RESP 14–16; TEMP 36.3–36.9; O2SAT 92–98; BMI 50.2
[2019-02-23 00:30] LABS: Bedside Glucose 123 mg/dL (70-110)
[2019-02-23 05:21] LABS: Absolute Lymphocyte Count 0.73 X10^3/uL (0.83-4.51); Basophil# 0.01 X10^3/uL; Basophil% 0.1 % (0-1); Eosinophil# 0.14 X10^3/uL; Eosinophils% 1.6 % (0-5); Lymphocyte # 0.73 X10^3/ul (4.0); Lymphocyte % 8.3 % (19-41); Mean Corpuscular Hgb 24.8 pg (27.0-32.0); Mean Corpuscular Volume 77.4 fL (81-99); Monocyte# 0.73 X10^3/uL; Monocyte% 8.3 % (0-10); NRBC Flagged by Analyzer 0 % (0-5); Neutrophil # 7.01 X10^3/uL (2.7-7.7); Neutrophil % 79.4 % (47-70); Platelet Count 175 K/mm3 (150-450); RBC Distribution Width CV 17.5 % (11.6-14.6); RBC Distribution Width SD 48.7 fl (35.1-43.9); Red Blood Count 3.23 M/mm3 (4.2-5.4); White Blood Count 8.8 K/mm3 (4.4-11.0)
[2019-02-23 05:39] LABS: Albumin, Serum 1.4 g/dL (3.2-5.0); BUN 15 mg/dL (7-18); BUN/Creat Ratio 3.9 RATIO (10-20); Calcium,Total 7.3 mg/dL (8.5-10.1); Chloride 101 mmol/L (98-107); Creatinine, Serum 3.85 mg/dL (0.55-1.02); EST Glomerular Filtration Rate 14 mL/min (>60); Est Glom Filt Rate - Afr Amer 16 mL/min (>60); Estimated Creatinine Clearance 14.22 ml/min; Glucose 106 mg/dL (74-106); Phosphorus 2.8 mg/dL (2.5-4.9); Potassium 3.7 mmol/L (3.5-5.1); Sodium Level 139 mmol/L (136-145)
--- NOTE | 2019-02-23 05:55 | EKG12_ITS ---
Test Reason : AM EKG Blood Pressure : / mmHG Vent. Rate : 083 BPM Atrial Rate : 083 BPM P-R Int : 162 ms QRS Dur : 108 ms QT Int : 396 ms P-R-T Axes : 027 008 068 degrees QTc Int : 465 ms Normal sinus rhythm Cannot rule out Anterior infarct (cited on or before 12-FEB-2019) Abnormal ECG When compared with ECG of 12-FEB-2019 16:50, QRS duration has increased Confirmed by JUAN JOSE BRADSHAW ([id number]), metropolitan editor JACOBO GILLILAND ([id number]) on 02/27/2019 11:57:59 AM Referred By: Virgil Murray Confirmed By:JUAN JOSE BRADSHAW
[2019-02-23] MEDS: Dextrose 5%/0.9% NaCl 1,000 ML 60 ML IV (05:58)
[2019-02-23 07:05] LABS: Bedside Glucose 123 mg/dL (70-110)
[2019-02-23] MEDS: Metoclopramide 5 MG TABLET PO ×3 (07:58→17:28)
[2019-02-23 08:51] LABS: Hemoglobin A1c 6.6 % (4.2-6.3)
--- NOTE | 2019-02-23 09:25 | PN.SURG_ITS ---
Patient Problems: Active and Suspected Problems (Last Reviewed 02/12/19 @ 20:40 by Virgil Murray DO) Gastroparesis (Acute) Subjective: Patient had no issues over the weekend. She had dialysis yesterday and her catheter was removed. - Physical Exam Vitals/I&O's: Vital Signs Temp Pulse Resp BP Pulse Ox 98.4 F 81 16 108/65 98 02/23/19 03:39 02/23/19 06:55 02/23/19 03:39 02/23/19 03:39 02/23/19 03:39 Oxygen Flow Rate (L/min) 2 Oxygen Delivery Method Room Air Weight: 272 lb 14.916 oz Body Mass Index (BMI) 50.2 Finger Stick Blood Glucose 98 Intake and Output for Last 24 Hours 02/21/19 02/22/19 02/23/19 23:59 23:59 23:59 Intake Total 1361 / 1361 1430 / 1430 970 / 970 Output Total 1375 / 1375 0 / 0 Balance 1361 / 1361 55 / 55 970 / 970 General: Oriented x3, Cooperative Lungs: Normal air movement Cardiovascular: Regular rate, Regular Rhythm Abdomen: Soft, Non Tender, Non-Distended Microbiology Past 72 Hours 02/16/19 Unknown Tissue - Leg, Right Gram Stain - Final 02/16/19 Unknown Tissue - Leg, Right Wound Culture - Final No growth aerobically. 02/16/19 Unknown Tissue - Leg, Right Anaerobic Culture - Final No growth in 5 days. 02/16/19 Unknown Tissue - Leg, Left Gram Stain - Final 02/16/19 Unknown Tissue - Leg, Left Wound Culture - Final No growth aerobically. 02/16/19 Unknown Tissue - Leg, Left Anaerobic Culture - Final No growth in 5 days. Laboratory Results 02/22/19 11:23: POC Glucose 92 02/22/19 16:44: POC Glucose 139 H 02/22/19 21:45: POC Glucose 123 H 02/23/19 05:00: WBC 8.8, RBC 3.23 L, Hgb 8.0 L, Hct 25.0 L, MCV 77.4 L, MCH 24.8 L, MCHC 32.0, RDW Std Deviation 48.7 H, RDW Coeff of Lu 17.5 H, Plt Count 175, MPV 9.0, Immature Gran % (Auto) 2.300 H, Neut % (Auto) 79.4 H, Lymph % (Auto) 8.3 L, [place] % (Auto) 8.3, Eos % (Auto) 1.6, Baso % (Auto) 0.1, Absolute Neuts (auto) 7.0, Absolute Lymphs (auto) 0.73 L, Nucleated RBC % 0 02/23/19 05:00: Sodium 139, Potassium 3.7, Chloride 101, Carbon Dioxide 29.0, Anion Gap Cancelled, BUN 15, Creatinine 3.85 H, Estim Creat Clear Calc 14.22, Est GFR (MDRD) Af Amer 16 L, Est GFR (MDRD) Non-Af 14 L, BUN/Creatinine Ratio 3.9 L, Glucose 106, Calcium 7.3 L, Phosphorus 2.8, Albumin 1.4 L 02/23/19 05:00: Hemoglobin A1c 6.6 H 02/23/19 06:58: POC Glucose 123 H Current Medications Acetaminophen (Tylenol) 650 mg PO Q6H PRN PRN PRN Reason: Pain Score 1-3/Temp > 100.7 F Last Admin: 02/19/19 09:47 Dose: 650 mg Documented by: Aspirin (Ecotrin) 81 mg PO DAILY@0800 [facility] Last Admin: 02/20/19 12:59 Dose: Not Given Documented by: Bupropion HCl (Wellbutrin Xl) 300 mg PO DAILY [facility] Last Admin: 02/22/19 15:44 Dose: 300 mg Documented by: Dextrose (D50w Syringe) 0 gm IV X1 PRN; Protocol PRN Reason: Hypoglycemia Last Admin: 02/20/19 16:50 Dose: 12.5 gm Documented by: Docusate Sodium (Colace) 100 mg PO BID [facility] Last Admin: 02/22/19 22:05 Dose: 100 mg Documented by: Emollient Ointment (Eucerin Intensive Repair) 1 applic TOPICAL 4X/DAY PRN PRN; Protocol PRN Reason: DRY SKIN Glucagon () 1 mg IM .X1 PRN PRN Reason: Hypoglycemia Last Admin: 02/20/19 12:48 Dose: 1 mg Documented by: Guaifenesin (Robitussin) 20 ml PO Q4H PRN PRN PRN Reason: COUGH Last Admin: 02/12/19 23:09 Dose: 20 ml Documented by: Heparin Sodium (Porcine) (Heparin Na) 5,000 unit SC Q8 [facility] Last Admin: 02/22/19 21:46 Dose: 5,000 unit Documented by: Hydralazine HCl (Apresoline Iv) 10 mg IV Q4H PRN PRN PRN Reason: SBP > 160 Sodium Chloride () 250 mls @ 15 mls/hr IV .[id number] PRN PRN Reason: Saline Flush Last Infusion: 02/17/19 12:20 Dose: Infused Documented by: Dextrose/Sodium Chloride (Dextrose 5%/0.9% Nacl) 1,000 mls @ 60 mls/hr IV .[id number] [facility] Last Admin: 02/23/19 05:58 Dose: 60 mls/hr Documented by: Levofloxacin (Levaquin Iv) 500 mg in 100 mls @ 100 mls/hr IV Q48H [facility] Last Infusion: 02/21/19 10:42 Dose: Infused Documented by: Insulin Human Lispro (Humalog Kwikpen (Bkc)) 0 unit SC ACHS [facility]; Protocol Last Admin: 02/23/19 02:19 Dose: Not Given Documented by: Lactic Acid (Lac-Hydrin, Amlactin) 1 applic TOPICAL TID [facility]; Protocol Last Admin: 02/23/19 02:19 Dose: Not Given Documented by: Melatonin (Melatonin) 3 mg PO QHS PRN PRN PRN Reason: INSOMNIA Last Admin: 02/12/19 23:07 Dose: 3 mg Documented by: Metoclopramide HCl (Metoclopramide Hcl) 5 mg PO TIDAC [facility] Last Admin: 02/23/19 07:58 Dose: 5 mg Documented by: Morphine Sulfate () 1 - 2 mg IV Q4H PRN PRN PRN Reason: Pain Score 1-10/10 Last Admin: 02/21/19 06:09 Dose: 2 mg Documented by: Nortriptyline HCl (Pamelor) 50 mg PO QHS [facility] Last Admin: 02/22/19 22:02 Dose: 50 mg Documented by: Nystatin (Mycostatin Powder) 1 applic TOPICAL BID [facility]; Protocol Last Admin: 02/22/19 21:49 Dose: 1 applicatio Documented by: Ondansetron HCl (Zofran) 4 mg IV Q8H PRN PRN PRN Reason: NAUSEA/VOMITING Last Admin: 02/19/19 00:37 Dose: 4 mg Documented by: Oxycodone HCl (Oxyir) 5 mg PO Q4H PRN PRN PRN Reason: Pain Score 4-10/10 Last Admin: 02/22/19 22:02 Dose: 5 mg Documented by: Polyethylene Glycol (Miralax) 17 gm PO DAILY [facility] Last Admin: 02/22/19 15:45 Dose: 17 gm Documented by: Pregabalin (Lyrica) 50 mg PO BID [facility] Last Admin: 02/22/19 22:01 Dose: 50 mg Documented by: Sodium Chloride () 10 - 40 ml IV UD PRN PRN Reason: SALINE FLUSH Last Admin: 02/22/19 08:14 Dose: 10 ml Documented by: Venlafaxine HCl (Effexor Xr) 150 mg PO DAILY [facility] Last Admin: 02/22/19 15:45 Dose: 150 mg Documented by: Medical Necessity - Tobacco Use Smoking Status: Never smoker Assessment/Plan All Active Problems (Last Reviewed 02/12/19 @ 20:40 by Virgil Murray DO) Necrotizing soft tissue infection (Acute) Open wound of both lower extremities with complication (Acute) Calciphylaxis (Acute) Lower extremity weakness (Acute) Generalized weakness (Acute) Gastroparesis (Acute) Syncope (Acute) 43-year-old female with chronic renal failure 1. Patient had her temporary dialysis catheter removed after dialysis yesterday. She is having malfunction of her PD catheter. I discussed placing a tunneled right IJ temporary dialysis catheter today in the OR. I discussed the risks of bleeding, infection, pneumothorax, DVT. Patient understands risks and is willing to proceed. I will allow her to have clear liquids until 11 and then n.p.o. She is holding her heparin today. Sarmad Briones MD Pager: [facility] [address] [place] [address], [address] [place] [address] Office:
[2019-02-23] MEDS: Pregabalin 50 MG Capsule PO (09:55)
[2019-02-23] MEDS: Docusate Sodium 100 MG Capsule PO (09:55)
[2019-02-23] MEDS: buPROPion (XL) 300 MG TABLET.XL PO (09:55)
[2019-02-23] MEDS: Venlafaxine XR 150 MG Capsule PO (09:55)
[2019-02-23] MEDS: levoFLOXacin IV 500 MG/100 ML BAG 100 MG IV (09:56)
[2019-02-23] MEDS: Polyethylene Glycol 3350 17 GM PACKET PO (09:56)
--- NOTE | 2019-02-23 10:17 | CASEMGMT ---
Addendum entered by Kaila Medina 02/23/19 10:26: SW spoke with therapy and they feel patient would be able to tolerate sitting in chair for dialysis as long as it reclines. She would have to use a maryann to get into the wheelchair and into the dialysis chair. RAIZA called Bess at [facility] and let her know she will need a maryann to get her into wc and the maryann pad will need to be under her so when she gets to dialysis they can maryann her into the dialysis chair. She said that should not be a problem. SW told her she is getting her dialysis catheter today, and SW will let her know if she is going to be d/c today. Kaila [employer]ON[employer]OCK[employer] Original Note: Patient is not able to stand and pivot. She was able to sit on the edge of the bed with assist of 2-3 for around 30 seconds. RAIZA called the [facility] where patient will be going for outpatient dialysis and asked how this would work. Per Raul if patient came via wc she would need a maryann pad underneath her as they do have a maryann. He said if she comes by cot the ambulance crew would transfer her to the chair. They are not able to dialyze on a bed. SW will talk with therapy. Kaila [employer]
--- NOTE | 2019-02-23 10:40 | NURSING ---
wound photo: right thigh
--- NOTE | 2019-02-23 10:41 | NURSING ---
wound photo: right abdominal fold
--- NOTE | 2019-02-23 10:42 | NURSING ---
wound photo: left thigh
--- NOTE | 2019-02-23 10:42 | NURSING ---
wound photo: left abdominal fold
--- NOTE | 2019-02-23 11:23 | PCM.PN.REN ---
Patient Problems: Active and Suspected Problems (Last Reviewed 02/12/19 @ 20:40 by Virgil Murray DO) Gastroparesis (Acute) Subjective: drowsy, no further BMs with bowel prep. PD catheter flushed yesterday but still not draining will need evaluated at a later time. HD yesterday with temp dialysis catheter. Tunnel catheter placement today then ok to DC to ECF. Will f/u at chronic dialysis center for hemodialysis backup until PD catheter evaluated. - Physical Exam Vitals/I&O's: Vital Signs Temp Pulse Resp BP Pulse Ox 98.3 F 89 16 112/60 95 02/23/19 09:27 02/23/19 09:27 02/23/19 09:27 02/23/19 09:27 02/23/19 09:27 Oxygen Flow Rate (L/min) 2 Oxygen Delivery Method Room Air Weight: 123.8 kg Body Mass Index (BMI) 50.2 Finger Stick Blood Glucose 98 Intake and Output for Last 24 Hours 02/21/19 02/22/19 02/23/19 23:59 23:59 23:59 Intake Total 1361 / 1361 1430 / 1430 1548 / 1548 Output Total 1375 / 1375 0 / 0 Balance 1361 / 1361 55 / 55 1548 / 1548 General: Alert, Oriented x3, - - sleepy Lungs: Clear to auscultation Cardiovascular: Regular rate Abdomen: Bowel Sounds Present, Soft, Non Tender, Non-Distended, Obese Extremities: No edema Psych/Mental Status: Normal Affect, Appropriate, Alert and oriented to time, place, person, mood and affect Microbiology Past 72 Hours 02/16/19 Unknown Tissue - Leg, Right Gram Stain - Final 02/16/19 Unknown Tissue - Leg, Right Wound Culture - Final No growth aerobically. 02/16/19 Unknown Tissue - Leg, Right Anaerobic Culture - Final No growth in 5 days. 02/16/19 Unknown Tissue - Leg, Left Gram Stain - Final 02/16/19 Unknown Tissue - Leg, Left Wound Culture - Final No growth aerobically. 02/16/19 Unknown Tissue - Leg, Left Anaerobic Culture - Final No growth in 5 days. Laboratory Results 02/22/19 11:23: POC Glucose 92 02/22/19 16:44: POC Glucose 139 H 02/22/19 21:45: POC Glucose 123 H 02/23/19 05:00: WBC 8.8, RBC 3.23 L, Hgb 8.0 L, Hct 25.0 L, MCV 77.4 L, MCH 24.8 L, MCHC 32.0, RDW Std Deviation 48.7 H, RDW Coeff of Lu 17.5 H, Plt Count 175, MPV 9.0, Immature Gran % (Auto) 2.300 H, Neut % (Auto) 79.4 H, Lymph % (Auto) 8.3 L, [place] % (Auto) 8.3, Eos % (Auto) 1.6, Baso % (Auto) 0.1, Absolute Neuts (auto) 7.0, Absolute Lymphs (auto) 0.73 L, Nucleated RBC % 0 02/23/19 05:00: Sodium 139, Potassium 3.7, Chloride 101, Carbon Dioxide 29.0, Anion Gap Cancelled, BUN 15, Creatinine 3.85 H, Estim Creat Clear Calc 14.22, Est GFR (MDRD) Af Amer 16 L, Est GFR (MDRD) Non-Af 14 L, BUN/Creatinine Ratio 3.9 L, Glucose 106, Calcium 7.3 L, Phosphorus 2.8, Albumin 1.4 L 02/23/19 05:00: Hemoglobin A1c 6.6 H 02/23/19 06:58: POC Glucose 123 H Current Medications Acetaminophen (Tylenol) 650 mg PO Q6H PRN PRN PRN Reason: Pain Score 1-3/Temp > 100.7 F Last Admin: 02/19/19 09:47 Dose: 650 mg Documented by: Aspirin (Ecotrin) 81 mg PO DAILY@0800 [facility] Last Admin: 02/20/19 12:59 Dose: Not Given Documented by: Bupropion HCl (Wellbutrin Xl) 300 mg PO DAILY [facility] Last Admin: 02/23/19 09:55 Dose: 300 mg Documented by: Dextrose (D50w Syringe) 0 gm IV X1 PRN; Protocol PRN Reason: Hypoglycemia Last Admin: 02/20/19 16:50 Dose: 12.5 gm Documented by: Docusate Sodium (Colace) 100 mg PO BID [facility] Last Admin: 02/23/19 09:55 Dose: 100 mg Documented by: Emollient Ointment (Eucerin Intensive Repair) 1 applic TOPICAL 4X/DAY PRN PRN; Protocol PRN Reason: DRY SKIN Glucagon () 1 mg IM .X1 PRN PRN Reason: Hypoglycemia Last Admin: 02/20/19 12:48 Dose: 1 mg Documented by: Guaifenesin (Robitussin) 20 ml PO Q4H PRN PRN PRN Reason: COUGH Last Admin: 02/12/19 23:09 Dose: 20 ml Documented by: Heparin Sodium (Porcine) (Heparin Na) 5,000 unit SC Q8 [facility] Last Admin: 02/22/19 21:46 Dose: 5,000 unit Documented by: Hydralazine HCl (Apresoline Iv) 10 mg IV Q4H PRN PRN PRN Reason: SBP > 160 Sodium Chloride () 250 mls @ 15 mls/hr IV .[id number] PRN PRN Reason: Saline Flush Last Infusion: 02/17/19 12:20 Dose: Infused Documented by: Dextrose/Sodium Chloride (Dextrose 5%/0.9% Nacl) 1,000 mls @ 60 mls/hr IV .[id number] [facility] Last Infusion: 02/23/19 10:57 Dose: 60 mls/hr Documented by: Levofloxacin (Levaquin Iv) 500 mg in 100 mls @ 100 mls/hr IV Q48H [facility] Last Infusion: 02/23/19 10:56 Dose: Infused Documented by: Insulin Human Lispro (Humalog Kwikpen (Bkc)) 0 unit SC ACHS [facility]; Protocol Last Admin: 02/23/19 11:13 Dose: Not Given Documented by: Lactic Acid (Lac-Hydrin, Amlactin) 1 applic TOPICAL TID [facility]; Protocol Last Admin: 02/23/19 02:19 Dose: Not Given Documented by: Melatonin (Melatonin) 3 mg PO QHS PRN PRN PRN Reason: INSOMNIA Last Admin: 02/12/19 23:07 Dose: 3 mg Documented by: Metoclopramide HCl (Metoclopramide Hcl) 5 mg PO TIDAC [facility] Last Admin: 02/23/19 11:13 Dose: 5 mg Documented by: Morphine Sulfate () 1 - 2 mg IV Q4H PRN PRN PRN Reason: Pain Score 1-10/10 Last Admin: 02/21/19 06:09 Dose: 2 mg Documented by: Nortriptyline HCl (Pamelor) 50 mg PO QHS [facility] Last Admin: 02/22/19 22:02 Dose: 50 mg Documented by: Nystatin (Mycostatin Powder) 1 applic TOPICAL BID [facility]; Protocol Last Admin: 02/23/19 09:56 Dose: Not Given Documented by: Ondansetron HCl (Zofran) 4 mg IV Q8H PRN PRN PRN Reason: NAUSEA/VOMITING Last Admin: 02/19/19 00:37 Dose: 4 mg Documented by: Oxycodone HCl (Oxyir) 5 mg PO Q4H PRN PRN PRN Reason: Pain Score 4-10/10 Last Admin: 02/22/19 22:02 Dose: 5 mg Documented by: Polyethylene Glycol (Miralax) 17 gm PO DAILY [facility] Last Admin: 02/23/19 09:56 Dose: 17 gm Documented by: Pregabalin (Lyrica) 50 mg PO BID [facility] Last Admin: 02/23/19 09:55 Dose: 50 mg Documented by: Sodium Chloride () 10 - 40 ml IV UD PRN PRN Reason: SALINE FLUSH Last Admin: 02/22/19 08:14 Dose: 10 ml Documented by: Venlafaxine HCl (Effexor Xr) 150 mg PO DAILY [facility] Last Admin: 02/23/19 09:55 Dose: 150 mg Documented by: Medical Necessity - Tobacco Use Smoking Status: Never smoker Assessment/Plan All Active Problems (Last Reviewed 02/12/19 @ 20:40 by Virgil Murray DO) Necrotizing soft tissue infection (Acute) Open wound of both lower extremities with complication (Acute) Calciphylaxis (Acute) Lower extremity weakness (Acute) Generalized weakness (Acute) Gastroparesis (Acute) Syncope (Acute) 1. ESRD hemodialysis next on Saturday as outpt. OK to DC to ECF after tunneled catheter placement. 2. Anemia epo on dialysis 3. Gastroparesis asymptomatic 4. HTN stable 5. Hx obstructive uropathy 6. Skin necrosis bilat thighs s/p debridement, wound vac. 7. confusion resolved. cautious use of narcotics
[2019-02-23 11:25] LABS: Bedside Glucose 130 mg/dL (70-110)
--- NOTE | 2019-02-23 11:41 | CASEMGMT ---
Per Dr. Odonnell, pt can go to [facility] after tunnel cath placed with scheduled OP dialysis at [facility] for 02/25/19 at 0630. Pt's normal schedule will be TTS at 0630 but d/t holiday, will go on saturday and was dialyzed here yesterday, 02/22/19. Dr. Guerra and Deidre SW aware of all at this time, voice understanding. Call to Tracy at [facility] and they are aware that pt will be there on 02/25/19 and that she will be a maryann lift, voices understanding. SStdarien VILA CM
--- NOTE | 2019-02-23 11:51 | CASEMGMT ---
Due to the holiday this week patient will go for dialysis on Sat at 630a. RAIZA called Bess at [facility] and let her know, she will check to see if [facility] can transport. Bess called RAIZA back and said she has transportation set up. RAIZA let her know patient will likely return today. Kaila MOON
--- NOTE | 2019-02-23 14:00 | PCM.DC.SUM ---
Discharge Date and Diagnosis - Problem List Patient Problems: Active and Suspected Problems (Last Reviewed 02/12/19 @ 20:40 by Virgil Murray DO) Gastroparesis (Acute) Date of Admission: 02/12/19 Date of Discharge: 02/23/19 - Primary Discharge Diagnosis Active and Suspected Problems (Last Reviewed 02/12/19 @ 20:40 by Virgil Murray DO) Gastroparesis (Acute) - Secondary Discharge Diagnosis Chronic Problems (Last Reviewed 02/12/19 @ 20:40 by Virgil Murray DO) Skin necrosis (Chronic) bilateral thighs Patient on peritoneal dialysis (Chronic) ESRD (end stage renal disease) (Chronic) Debility (Chronic) Orthostatic hypotension (Chronic) Chronic renal failure, stage 4 (severe) (Chronic) Morbid obesity (Chronic) HTN (hypertension) (Chronic) Bilateral hydronephrosis (Chronic) Iron deficiency anemia (Chronic) Type II diabetes mellitus (Chronic) Coronary artery disease (Chronic) Chronic low back pain (Chronic) Hydroureter (Chronic) Bladder outlet obstruction (Chronic) Hospital Course and Treatment Imaging Results: Gastric Emptying study: IMPRESSION: 1. ABNORMAL 99m Tc sulfur colloid semi-solid phase (oatmeal) gastric emptying imaging examination. A. There is delayed semi-solid phase gastric emptying compared to normal controls with maintained first order kinetics throughout all components of the examination. (Indu et al, J Nucl Med Tech 38: 186, 2010). B. Compared to the previous gastric emptying examination dated 03/04/2018, there is current abnormal semisolid phase emptying as described above. CXR: IMPRESSION: No acute thoracic pathology. Temporary Dialysis Catheter: Report of Operation Date of Procedure: 02/20/19 Pre-Operative Diagnosis: End-stage renal disease on dialysis, need for IV access Post-Operative Diagnosis: Same Surgery/Procedure Performed:: Right IJ temporary Mahurkar catheter Type of Anesthesia:: Local Estimated Blood Loss (mL): minimal Thigh Excision: Report of Operation Date of Procedure: 02/16/19 Pre-Operative Diagnosis: 1. 14 cm necrotic wound left proximal lateral thigh, probably infected. 2. 19 cm necrotic wound right proximal anterolateral thigh, probably infected. 3. End stage renal disease on dialysis. 4. Peritoneal dialysis. 5. Painful calciphylaxis. 6. Diabetes mellitus. Post-Operative Diagnosis: 1. 14 cm necrotic wound left proximal lateral thigh with necrotizing soft tissue infection. 2. 19 cm necrotic wound right proximal anterolateral thigh with necrotizing soft tissue infection. 3. End stage renal disease on dialysis. 4. Peritoneal dialysis. 5. Painful calciphylaxis. 6. Diabetes mellitus. Surgery/Procedure Performed:: 1. Surgical preparation left proximal lateral thigh with incision and drainage and excisional debridement necrotizing soft tissue infection with skin necrosis (165 cm2). 2. Surgical preparation right proximal anterolateral thigh with incision and drainage and excisional debridement necrotizing soft tissue infection with skin necrosis (252 cm2). Report of Operation Date of Procedure: 02/23/19 Pre-Operative Diagnosis: End-stage renal disease Post-Operative Diagnosis: Same Surgery/Procedure Performed:: Ultrasound and fluoroscopy guided right tunneled temporary dialysis catheter placement utilizing right IJ Consultations 02/12/19 22:25 Consult: Onc/Wound/hide inspector Routine Comment: Operations: None Procedures: Dialysis Summary of Care Provided: Per HPI: The patient is a 43 year old F presents with a several day history of intractable nausea and vomiting and diarrhea. Began suddenly just has not relented during this period of time. And presented to the emergency room and she underwent a work-up that showed a potassium of 3. She received morphine, Zofran, K. Dur and IV fluids. Still feels ill. They tend to send her home the patient was just feeling too weak. Patient states that she feels like this every several months. Is never been formally diagnosed with gastroparesis, however. Patient is on peritoneal dialysis as a last ditch effort as patient has had steal syndrome related with fistulas that she has had her received before and so can no longer be on hemodialysis at this point time. Patient has initiated peritoneal dialysis back in November, so was having these issues prior to that. Hospital Course: 1. Acute [id number]-old female with a history of morbid obesity, diabetes presented with intractable nausea and vomiting. She had episodes similar previously and had gastric emptying studies at that time which was negative, however on this admission she had a gastric emptying study which was markedly abnormal. She has had improvement in her symptoms with being on Reglan 5 mg 3 times a day. There is a risk of interaction with her SSRIs and SNRIs in terms of extrapyramidal side effects and these will need to be monitored at the [place] [facility]. Also continue with her bowel regimen she has been on here at the [place] [facility]. 2. Bilateral thigh skin necrosis-skin excisional debridement by surgery 6 days prior to discharge, wound vacs are in place and she is doing well. Wound cultures have been negative and will continue with p.o. Levaquin for 5 more days. She was having significant leg pain and was on narcotics, this is likely also contributing to her constipation and the effects of her gastroparesis. Will limit as much as possible her narcotic intake. She also need to follow-up with surgery at the wound center, she has some very superficial skin fold erosions that will need to be followed as well. 3. End-stage renal disease-during her stay she ended up having some difficulty with her peritoneal dialysis catheter which had to be removed, she had a temporary dialysis catheter placed and she is going today on the day of discharge for a permanent dialysis catheter. 4. Her other medical diagnoses were evaluated and her home medications were continued where appropriate Patient Problems: Active and Suspected Problems (Last Reviewed 02/12/19 @ 20:40 by Virgil Murray DO) Gastroparesis (Acute) - Physical Exam Vitals/I&O's: Vital Signs Temp Pulse Resp BP Pulse Ox 98.3 F 84 16 112/60 95 02/23/19 09:27 02/23/19 11:04 02/23/19 09:27 02/23/19 09:27 02/23/19 09:27 Oxygen Flow Rate (L/min) 2 Oxygen Delivery Method Room Air Weight: 272 lb 14.916 oz Body Mass Index (BMI) 50.2 Finger Stick Blood Glucose 98 Intake and Output for Last 24 Hours 02/21/19 02/22/19 02/23/19 23:59 23:59 23:59 Intake Total 1361 / 1361 1430 / 1430 1725 / 1725 Output Total 1375 / 1375 0 / 0 Balance 1361 / 1361 55 / 55 1725 / 1725 General: Alert, Oriented x3, Cooperative, No apparent distress HEENT: Atraumatic, PERRLA, EOMI, Normocephalic Oral: Moist Mucosa Neck: Supple, No JVD Lungs: Clear to auscultation, Normal air movement, No rhonchi, No wheeze, No rales, Diminished Cardiovascular: Regular rate, Regular Rhythm, Normal S1, Normal S2, No murmurs Abdomen: Soft, Non Tender, Non-Distended, No Hepato-splenomegaly, Obese Extremities: No edema, Capillary Refill Less than 3 Seconds Skin: Ulcer/ Wound - Wound vacs in place Neurological: Neuro grossly intact, Sensory exam intact to light touch and pain Psych/Mental Status: Normal Affect, Appropriate Microbiology Past 72 Hours 02/16/19 Unknown Tissue - Leg, Right Gram Stain - Final 02/16/19 Unknown Tissue - Leg, Right Wound Culture - Final No growth aerobically. 02/16/19 Unknown Tissue - Leg, Right Anaerobic Culture - Final No growth in 5 days. 02/16/19 Unknown Tissue - Leg, Left Gram Stain - Final 02/16/19 Unknown Tissue - Leg, Left Wound Culture - Final No growth aerobically. 02/16/19 Unknown Tissue - Leg, Left Anaerobic Culture - Final No growth in 5 days. Laboratory Results 02/22/19 16:44: POC Glucose 139 H 02/22/19 21:45: POC Glucose 123 H 02/23/19 05:00: WBC 8.8, RBC 3.23 L, Hgb 8.0 L, Hct 25.0 L, MCV 77.4 L, MCH 24.8 L, MCHC 32.0, RDW Std Deviation 48.7 H, RDW Coeff of Lu 17.5 H, Plt Count 175, MPV 9.0, Immature Gran % (Auto) 2.300 H, Neut % (Auto) 79.4 H, Lymph % (Auto) 8.3 L, [place] % (Auto) 8.3, Eos % (Auto) 1.6, Baso % (Auto) 0.1, Absolute Neuts (auto) 7.0, Absolute Lymphs (auto) 0.73 L, Nucleated RBC % 0 02/23/19 05:00: Sodium 139, Potassium 3.7, Chloride 101, Carbon Dioxide 29.0, Anion Gap Cancelled, BUN 15, Creatinine 3.85 H, Estim Creat Clear Calc 14.22, Est GFR (MDRD) Af Amer 16 L, Est GFR (MDRD) Non-Af 14 L, BUN/Creatinine Ratio 3.9 L, Glucose 106, Calcium 7.3 L, Phosphorus 2.8, Albumin 1.4 L 02/23/19 05:00: Hemoglobin A1c 6.6 H 02/23/19 06:58: POC Glucose 123 H 02/23/19 11:12: POC Glucose 130 H Current Medications Acetaminophen (Tylenol) 650 mg PO Q6H PRN PRN PRN Reason: Pain Score 1-3/Temp > 100.7 F Last Admin: 02/19/19 09:47 Dose: 650 mg Documented by: Aspirin (Ecotrin) 81 mg PO DAILY@0800 [facility], [facility] Last Admin: 02/20/19 12:59 Dose: Not Given Documented by: Bupropion HCl (Wellbutrin Xl) 300 mg PO DAILY [facility], [facility] Last Admin: 02/23/19 09:55 Dose: 300 mg Documented by: Dextrose (D50w Syringe) 0 gm IV X1 PRN; Protocol PRN Reason: Hypoglycemia Last Admin: 02/20/19 16:50 Dose: 12.5 gm Documented by: Docusate Sodium (Colace) 100 mg PO BID [facility], [facility] Last Admin: 02/23/19 09:55 Dose: 100 mg Documented by: Emollient Ointment (Eucerin Intensive Repair) 1 applic TOPICAL 4X/DAY PRN PRN; Protocol PRN Reason: DRY SKIN Glucagon () 1 mg IM .X1 PRN PRN Reason: Hypoglycemia Last Admin: 02/20/19 12:48 Dose: 1 mg Documented by: Guaifenesin (Robitussin) 20 ml PO Q4H PRN PRN PRN Reason: COUGH Last Admin: 02/12/19 23:09 Dose: 20 ml Documented by: Heparin Sodium (Porcine) (Heparin Na) 5,000 unit SC Q8 [facility], [facility] Last Admin: 02/22/19 21:46 Dose: 5,000 unit Documented by: Hydralazine HCl (Apresoline Iv) 10 mg IV Q4H PRN PRN PRN Reason: SBP > 160 Sodium Chloride () 250 mls @ 15 mls/hr IV .[id number] PRN PRN Reason: Saline Flush Last Infusion: 02/17/19 12:20 Dose: Infused Documented by: Dextrose/Sodium Chloride (Dextrose 5%/0.9% Nacl) 1,000 mls @ 60 mls/hr IV .[id number] [facility] Last Infusion: 02/23/19 13:54 Dose: 0 mls/hr Documented by: Levofloxacin (Levaquin Iv) 500 mg in 100 mls @ 100 mls/hr IV Q48H [facility] Last Infusion: 02/23/19 10:56 Dose: Infused Documented by: Insulin Human Lispro (Humalog Kwikpen (Bkc)) 0 unit SC ACHS [facility], [facility]; Protocol Last Admin: 02/23/19 11:13 Dose: Not Given Documented by: Lactic Acid (Lac-Hydrin, Amlactin) 1 applic TOPICAL TID [facility], [facility]; Protocol Last Admin: 02/23/19 12:56 Dose: Not Given Documented by: Melatonin (Melatonin) 3 mg PO QHS PRN PRN PRN Reason: INSOMNIA Last Admin: 02/12/19 23:07 Dose: 3 mg Documented by: Metoclopramide HCl (Metoclopramide Hcl) 5 mg PO TIDAC [facility] Last Admin: 02/23/19 11:13 Dose: 5 mg Documented by: Morphine Sulfate () 1 - 2 mg IV Q4H PRN PRN PRN Reason: Pain Score 1-10/10 Last Admin: 02/21/19 06:09 Dose: 2 mg Documented by: Nortriptyline HCl (Pamelor) 50 mg PO QHS [facility] Last Admin: 02/22/19 22:02 Dose: 50 mg Documented by: Nystatin (Mycostatin Powder) 1 applic TOPICAL BID [facility], [facility]; Protocol Last Admin: 02/23/19 09:56 Dose: Not Given Documented by: Ondansetron HCl (Zofran) 4 mg IV Q8H PRN PRN PRN Reason: NAUSEA/VOMITING Last Admin: 02/19/19 00:37 Dose: 4 mg Documented by: Oxycodone HCl (Oxyir) 5 mg PO Q4H PRN PRN PRN Reason: Pain Score 4-10/10 Last Admin: 02/22/19 22:02 Dose: 5 mg Documented by: Polyethylene Glycol (Miralax) 17 gm PO DAILY [facility] Last Admin: 02/23/19 09:56 Dose: 17 gm Documented by: Pregabalin (Lyrica) 50 mg PO BID [facility] Last Admin: 02/23/19 09:55 Dose: 50 mg Documented by: Sodium Chloride () 10 - 40 ml IV UD PRN PRN Reason: SALINE FLUSH Last Admin: 02/22/19 08:14 Dose: 10 ml Documented by: Venlafaxine HCl (Effexor Xr) 150 mg PO DAILY [facility] Last Admin: 02/23/19 09:55 Dose: 150 mg Documented by: Home Medications: Medications to take at Discharge Ergocalciferol [Vitamin D] 50,000 unit PO WE 04/18/17 Venlafaxine XR [Effexor Xr] 150 mg PO DAILY 02/28/18 Aspirin E.C. [Ecotrin] 81 mg PO DAILY@0800 07/15/18 Nortriptyline HCl [Pamelor] 50 mg PO QHS 07/15/18 Pregabalin [Lyrica] 100 mg PO BID 07/15/18 Bupropion HCl [Bupropion Xl] 300 mg PO DAILY 09/22/18 cycloBENZAPRine HCl [Flexeril] 10 mg PO TID PRN #20 tab 12/26/18 Ondansetron [Zofran Odt] 4 mg PO Q8H PRN PRN #10 tab 02/12/19 Oxycodone HCl/Acetaminophen [Percocet 5-325 mg Tablet] 1 ea PO Q6H PRN PRN 02/12/19 levoFLOXacin tablet [Levaquin tablet] 500 mg PO Q48@0600 #5 tab 02/19/19 Docusate Sodium [Colace] 100 mg PO BID cap 02/23/19 Metoclopramide [Metoclopramide HCl] 5 mg PO TIDAC tab 02/23/19 Nepro with Carbsteady [Nepro Carb Steady] 120 ml PO TIDCM liquid 02/23/19 Polyethylene Glycol 3350 [Miralax] 17 gm PO DAILY packet 02/23/19 Following Prescrptions Were Given to Patient: levoFLOXacin tablet [Levaquin tablet] 500 mg PO Q48@0600 #5 tab Prescription Printed Ondansetron [Zofran Odt] 4 mg PO Q8H PRN PRN #10 tab PRN Reason: Nausea Prescription Printed Primary Care Physician: Alan Goncalves MD [STAFF PHYSICIAN] - Melvi Eastman MD [Primary Care Provider] - Please Follow Up With: Melvi Eastman MD When: 1-2 weeks Please Follow Up With: Erick Cuevas MD When: 1-2 weeks Please Follow Up With: Betty Odonnell DO When: 1-2 weeks Patient Instructions: DIET, Vomiting or Diarrhea [6yr-Adult] Disposition: [facility] facility Minutes spent on discharge:: 35 Patient Condition:: Stable Medical Necessity - Tobacco Use Smoking Status: Never smoker Meaningful Use Info Meaningful Use Diagnoses (Choose all that apply): None applicable Code Visit Inpatient E&M: 04270 Disch Hosp
--- NOTE | 2019-02-23 14:01 | NURSING ---
Report called to Brianna in [facility]
--- NOTE | 2019-02-23 14:14 | CASEMGMT ---
RAIZA faxed wound nurse notes to [facility] and also talked with Brooke. She said they are aware she needs a wound vac, but did not know the settings. She said they have a wound vac at the facility for her. Kaila CORONADO MSW
[2019-02-23] MEDS: 0.9% Normal Saline 1,000 ML 30 ML IV (14:40)
--- NOTE | 2019-02-23 15:33 | CASEMGMT ---
RAIZA received a call from Jaye at [facility]. She was wanting an update on patient. RAIZA told her patient is going to [facility]. Patient is supposed to be discharged to [facility] today. Orders were already faxed to [facility]. Convalescent was completed on . Staff will set up transport when patient returns from surgery. Plan: [facility] under skilled level of care on a convalescent stay. Kaila CORONADO MSW
[2019-02-23] MEDS: Heparin 10,000 UNITS/10 ML Vial 10000 UNITS (15:50)
--- NOTE | 2019-02-23 16:12 | RAD_ITS ---
STUDY: X-RAY CHEST REASON FOR EXAM: Female, 43 years old. Postop dialysis catheter placement. TECHNIQUE: Single AP portable upright view of the chest. COMPARISON: Portable AP upright chest x-ray February 20, 2019 FINDINGS: Right central venous catheter seen on prior study has been replaced by a tunneled dual lumen hemodialysis catheter. This passes from the right anterior chest wall, looping at the right base the neck, its tip just at the cavoatrial junction. No pneumothorax. The lungs are incompletely expanded, and there is probable subsegmental atelectasis in the lung bases, greater on the right. There is no demonstrated pleural abnormality. Stable size heart. Normal mediastinum and anita. Normal visualized pulmonary arteries. Normal visualized aortic arch and descending thoracic aorta. There are stable multilevel degenerative changes of the visualized thoracic spine. Normal visualized ribs, clavicles, and shoulders. There is no demonstrated abnormality of the visualized soft tissue structures of the upper abdomen. RAD/CXR for Line Placement IMPRESSION: 1. Tunneled right chest wall hemodialysis catheter now in place. No pneumothorax. 2. Subsegmental atelectasis in the bilateral lung bases. Electronically Signed: Luciano Romero MD at 19:24 EST , Service support ,
--- NOTE | 2019-02-23 16:18 | PCM.OPRPT ---
Problem List (1) ESRD (end stage renal disease) Status: Chronic Report of Operation Date of Procedure: 02/23/19 Pre-Operative Diagnosis: End-stage renal disease Post-Operative Diagnosis: Same Surgery/Procedure Performed:: Ultrasound and fluoroscopy guided right tunneled temporary dialysis catheter placement utilizing right IJ Description of Procedure: Patient was brought back to the operating room and MAC anesthesia was induced. The right neck was prepped and draped in usual sterile fashion and patient was placed in Trendelenburg position. Ultrasound was used to identify the right IJ. It appeared widely patent. The skin overlying the IJ was anesthetized with local anesthetic and an 11 blade scalpel was used to make a skin incision. Next the needle was placed under ultrasound guidance into the right IJ and a guidewire was placed under fluoroscopy into the right SVC. Next the needle was removed and serial dilators were placed as well as a introducer sheath. The guidewire was removed. Anesthetic was injected into the right chest skin as well as the projected tunnel. Next a skin incision was made and the catheter with tunneler was placed into the right chest and tunneled in the subcutaneous tissue to the right neck. The tunneler was then removed and the catheter was placed through the peel-away sheath under fluoroscopy guidance. The sheath was then peeled away and the catheter was advanced under the skin. The catheter appeared in good position with no kinking. Next the skin was closed with an interrupted 3-0 Vicryl suture and the catheter was sutured to the skin using interrupted 3-0 nylon sutures. The cuff was underneath the skin about 1 cm proximal to the skin incision. Next each port was aspirated and then irrigated. They both sulema and flushed nicely. Next 2 cc of heparin was injected into each of the ports and catheter placed. Dressing was placed. Patient tolerated procedure well was brought to PACU in stable condition. Chest x-ray to be obtained. Grafts/Implants Used: 17 cm distal length curved palindrome temporary dialysis catheter - Admit VTE Documentation VTE Mechan Device Prophylaxis: SCD's
[2019-02-23 17:35] LABS: Bedside Glucose 78 mg/dL (70-110)
--- NOTE | 2019-02-23 17:51 | NURSING ---
Report called to Haley VILA at [facility]
== END 2019-02-23 18:51 | disposition skilled nursing facility (03) | DRG 40 ==
LOC: ED 16:59 → MS3 20:39 → PCU 02-20 10:32
PROVIDERS: Anesthesiology; Internal Medicine; Internal Medicine Nephrology; Student in an Organized Health Care Education/Training Program; Surgery; Emergency Provider Emergency Medicine; Family Provider Internal Medicine; PCP Internal Medicine; Visit Provider Family Medicine
PROC: 0JBM0ZZ Excision of Left Upper Leg Subcutaneous Tissue and Fascia, Open Approach (ICD-10-PCS; principal; 2019-02-16 13:15)
PROC: 0JH63XZ Insertion of Tunneled Vascular Access Device into Chest Subcutaneous Tissue and Fascia, Percutaneous Approach (ICD-10-PCS; principal; 2019-02-23 14:40)
DX: E11.43 Type 2 diabetes mellitus with diabetic autonomic (poly)neuropathy (principal); N18.6 End stage renal disease; I12.0 Hypertensive chronic kidney disease with stage 5 chronic kidney disease or end stage renal disease; Z68.42 Body mass index [BMI] 45.0-49.9, adult; E87.1 Hypo-osmolality and hyponatremia; T85.611A Breakdown (mechanical) of intraperitoneal dialysis catheter, initial encounter; E11.52 Type 2 diabetes mellitus with diabetic peripheral angiopathy with gangrene; I96 Gangrene, not elsewhere classified; E87.6 Hypokalemia; Z99.2 Dependence on renal dialysis; E11.22 Type 2 diabetes mellitus with diabetic chronic kidney disease; E66.01 Morbid (severe) obesity due to excess calories; K31.84 Gastroparesis; E83.42 Hypomagnesemia; D63.8 Anemia in other chronic diseases classified elsewhere; N32.0 Bladder-neck obstruction; G89.29 Other chronic pain; M54.5 Low back pain; I25.10 Atherosclerotic heart disease of native coronary artery without angina pectoris; L30.4 Erythema intertrigo
CPT/HCPCS: 36415; 71045; 74019; 76000; 78264; 80048; 80053; 80069; 81001; 82962; 83036; 83605; 83690; 83735; 84100; 84134; 84484; 85025; 85027; 85610; 85730; 87015; 87070; 87075; 87077; 87102; 87106; 87116; 87205; 87206; 87640; 88304; 88305; 88312; 89050; 90937; 90947; 93005; 97110; 97163; 97166; 97530; 99284; A9541; J1756; J7030; J7040; J7050; J7120; A4216; C1752; G0257; J1610; J2405; Q5106

== ENCOUNTER 2019-02-25 06:09 | Inpatient (IN) | payer MEDICARE, MEDICAID, SELFPAY ==
[2019-02-23 09:16] VITALS: BMI 50.2
[2019-02-25 06:11] VITALS: BP 192/92; PULSE 67; RESP 18; TEMP 36.8; O2SAT 94; BMI 41.8
[2019-02-25 07:02] LABS: Absolute Lymphocyte Count 0.69 X10^3/uL (0.83-4.51); Absolute Neutrophil Count 14.1 X10^3/uL (2.0-7.7); Basophil# 0.04 X10^3/uL; Basophil% 0.2 % (0-1); Eosinophil# 0.05 X10^3/uL; Eosinophils% 0.3 % (0-5); Hematocrit 26.6 % (37-47); Hemoglobin 8.4 g/dL (12.0-15.0); Lymphocyte # 0.69 X10^3/ul (4.0); Lymphocyte % 4.2 % (19-41); Mean Corp Hgb Conc 31.6 g/dL (32-36); Mean Corpuscular Hgb 24.6 pg (27.0-32.0); Mean Corpuscular Volume 77.8 fL (81-99); Mean Platelet Vol. 9.4 fl (6.2-12.0); Monocyte# 1.14 X10^3/uL; NRBC Flagged by Analyzer 0 % (0-5); Neutrophil # 14.12 X10^3/uL (2.7-7.7); Neutrophil % 86.2 % (47-70); Platelet Count 186 K/mm3 (150-450); Red Blood Count 3.42 M/mm3 (4.2-5.4); White Blood Count 16.4 K/mm3 (4.4-11.0)
[2019-02-25 07:03] LABS: Anion Gap 11 (5-15); BUN 28 mg/dL (7-18); BUN/Creat Ratio 4.6 RATIO (10-20); Calcium,Total 8.4 mg/dL (8.5-10.1); Chloride 103 mmol/L (98-107); Creatinine, Serum 6.03 mg/dL (0.55-1.02); EST Glomerular Filtration Rate 8 mL/min (>60); Est Glom Filt Rate - Afr Amer 10 mL/min (>60); Estimated Creatinine Clearance 12.14 ml/min; Glucose 80 mg/dL (74-106); Potassium 4.8 mmol/L (3.5-5.1); Sodium Level 139 mmol/L (136-145)
--- NOTE | 2019-02-25 07:31 | CT_ITS ---
STUDY: CT BRAIN WITHOUT CONTRAST REASON FOR EXAM: Female, 43 years old. RADIATION DOSAGE (If Supplied By Facility): CTDIvol = ( 44.99 ) mGy, DLP = ( 812.98 ) mGycm TECHNIQUE: Transaxial CT imaging of the brain was performed without administration of intravenous contrast material. Individualized dose optimization techniques were used for this CT. COMPARISON: No relevant priors. FINDINGS: Normal soft tissue structures. Normal calvarium. Normal size ventricles and extra-axial spaces for the patient's age. Normal white matter tracts of the cerebral hemispheres. Normal basal ganglia and thalami. Normal brainstem. Normal cerebellum. There is no intracranial hemorrhage. There are no findings of an acute ischemic infarction. Normal visualized paranasal sinuses. CT/Brain/Head without Contrast IMPRESSION: Normal unenhanced CT scan of the brain. Electronically Signed: Tram Reed, at 8:12 EST Tel , Service support ,
[2019-02-25 08:10] VITALS: BP 93/71; PULSE 92; RESP 16; O2SAT 99
--- NOTE | 2019-02-25 08:24 | ED.RN ---
DR AWARE OF BP DECREASE FROM ADMIT- DOCUMENTED 192/92, MONITOR IN ROOM SHOWS FIRST BP 109/92. NNO AT THIS TIME. DR CRUZ SPEAKING TO MOM ABOUT HIS CONVERSATION WITH DR LLOYD. PT CONTINUES TO HALLUCINATE AND VOICES HOSTILITY TOWARD NURSING STAFF PROVIDING CARE. PT ATTEMPTING TO HIT NURSING STAFF. PT AND MOM REFUSING 2ND BLOOD CULTURE AND QUICK CATH URINE SAMPLE. WILL CONTINUE TO MONITOR.
[2019-02-25] MEDS: 0.9% Normal Saline 1,000 ML 100 ML IV (08:25)
--- NOTE | 2019-02-25 08:28 | ED.DCSUM_ITS ---
- ER Visit Summary Date of Service: 02/25/19 Chief Complaint: [Mental status change/hallucinations] History of Present Illness: The patient is a 43 F [presents to the emergency department [facility]. Per staff at [facility] patient was hallucinating this morning and very combative. Per mother patient is not hallucinated in the past. Mother is not sure if it is medication related. Patient is a dialysis patient and was scheduled to have dialysis this morning at 6 AM but they sent her to the ER instead. Patient had been on peritoneal dialysis and she had a new port placed to the right side of her chest last week. She has not had any fevers although she is on Levaquin if she has nonhealing wounds to both thighs with wound vacs in place. She denies any fevers. She tells me she has had nausea and vomiting as well as diarrhea. Patient has history of coronary artery disease, diabetes, chronic renal failure, hypertension.] Physical Examination: [HEENT-PERRLA, EOMI. Cranial nerves II through XII grossly intact. TMs clear. Mucous membranes moist. No adenopathy. Patient is awake and answering questions appropriately. She is alert to person place. Cardiovascular-regular rate and rhythm without murmur or ectopy Lungs-clear to auscultation, chest wall stable without crepitus or subcu emphysema Abdomen-normoactive bowel sounds, soft, nontender, no rebound or rigidity, no peritoneal signs. Extremities-intact ?4, normal range of motion, normal pulses. Patient has large open wounds to both lateral thighs with wound vacs in place. Patient has some faint erythema around the wounds.] Test Results: [CBC with differential obtained showed a white count of 16.4, hemoglobin 8.4, hematocrit 26, platelets 186. Chemistries unremarkable. BUN [address] scan of the brain without contrast showed nothing acute. Lactate and ammonia level pending.] Urinalysis is pending and the patient's mother does not want us to do a straight cath as this typically causes the patient's severe discomfort. Emergency Department Course and Treatment: [Patient was started on normal saline at 100 cc an hour. Case was discussed with Dr. Odonnell who is the patient's labor arbitrator hearing office. Patient will be discussed with hospitalist evaluate for admission.] Treatment Plan: [Admit for dialysis and further work-up and evaluation of her mental status change and hallucinations. Suspect patient is encephalopathic.] Disposition: [Admit] Impression: [Mental status change/encephalopathy Chronic renal failure] Leukocytosis with chronic wounds This note was generated with [employer] dictation software. It may contain incorrect words, spelling, and punctuation that were not noted in review of the chart prior to signing ED Disposition - Plan for ED Patient: Referrals: Melvi Eastman MD [Primary Care Provider] -
--- NOTE | 2019-02-25 08:38 | HP.PCM_ITS ---
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 (2) ESRD (end stage renal disease) Status: Chronic (3) Debility Status: Chronic (4) Morbid obesity Status: Chronic (5) HTN (hypertension) Status: Chronic Qualifiers: Hypertension type: essential hypertension Qualified Code(s): I10 - Essential (primary) hypertension (6) Type II diabetes mellitus Status: Chronic Qualifiers: Diabetes mellitus assisted insulin use: unspecified assisted insulin use status Diabetes mellitus complication status: with unspecified complications History of Present Illness Date of Admission: 02/25/19 Chief Complaint: Altered mental status - worse since yesterday The patient is a 43 year old F with past medical history of ESRD on hemodialysis who was admitted initially for intractable nausea and vomiting as well as diarrhea. Patient was diagnosed with gastroparesis. During the course of this a dmission, patient was noted to have worsening bilateral thigh skin necrosis for which plastic surgery was consulted and patient had excision of the skin necrosis. Pathology was negative for calciphylaxis. Patient was on peritoneal dialysis at that time. Her peritoneal dialysis was not working at a time and patient was switched to hemodialysis with a temporary catheter placed which was later changed to a tunneled catheter on 02/23/19. Patient was said to be confused even during her last admission. This was felt to be due to her reduce clearance from lack of dialysis. She was found to be p rogressively confused on arrival in the long-term. She was said to be hallucinating and this progressively become worse and she was brought back to emergency department today. She was reportedly said to have missed her dialysis also yesterday. On arrival to the emergency department, her vitals were T 90 8.2F, heart rate 67, blood pressure 192/92 which improved to 134/103. Respiratory rate was 18, SPO2 was 94% on room air. Her admitting blood work showed RBC count of 16.4, hemoglobin was 8.4, platelet was 186,sodium 139, potassium 4.8, chloride 103, bicarbonate 25, BUN 28, creatinine 6.03, lactic acid 0.8, ammonia was less than 10. CT scan of the brain was unremarkable. Past Medical History Past Medical History (Chronic Problems): Chronic Problems (Last Reviewed 02/12/19 @ 20:40 by Virgil Murray DO) Skin necrosis (Chronic) bilateral thighs Patient on peritoneal dialysis (Chronic) ESRD (end stage renal disease) (Chronic) Debility (Chronic) Orthostatic hypotension (Chronic) Chronic renal failure, stage 4 (severe) (Chronic) Morbid obesity (Chronic) HTN (hypertension) (Chronic) Bilateral hydronephrosis (Chronic) Iron deficiency anemia (Chronic) Type II diabetes mellitus (Chronic) Coronary artery disease (Chronic) Chronic low back pain (Chronic) Hydroureter (Chronic) Bladder outlet obstruction (Chronic) Medical History: Medical History (Last Reviewed 02/12/19 @ 20:40 by Virgil Murray DO) Chronic renal failure, stage 4 (severe) (Chronic) N18.4 Anemia D64.9 Anxiety and depression F41.8 Back problem M53.9 Carpal tunnel syndrome G56.00 Diabetes type 2, controlled E11.9 H/O nephrolithotomy with removal of calculi Z98.890, Z87.442 H/O transfusion of whole blood Z92.89 Headache R51 Heart disease I51.9 Hives L50.9 Kidney disease N28.9 Kidney failure N19 Kidney stone N20.0 Neuropathy G62.9 Recurrent infections B99.9 Seasonal allergies J30.2 UTI (urinary tract infection) N39.0 Vitamin deficiency E56.9 HTN (hypertension) I10 Allergies ciprofloxacin [From Cipro] Adverse Reaction (Verified 02/25/19 06:33) Vomiting contrast dye Allergy (Severe, Uncoded 02/25/19 06:33) Anaphylaxis Home Medications: Ambulatory Orders Medication Instructions Recorded Ergocalciferol [Vitamin D] 50,000 unit PO WE 04/18/17 Venlafaxine XR [Effexor Xr] 150 mg PO DAILY 02/28/18 Aspirin E.C. [Ecotrin] 81 mg PO DAILY@0800 07/15/18 Nortriptyline HCl [Pamelor] 50 mg PO QHS 07/15/18 Pregabalin [Lyrica] 100 mg PO BID 07/15/18 Bupropion HCl [Bupropion Xl] 300 mg PO DAILY 09/22/18 cycloBENZAPRine HCl [Flexeril] 10 mg PO TID PRN #20 tab 12/26/18 Ondansetron [Zofran Odt] 4 mg PO Q8H PRN PRN #10 tab 02/12/19 Oxycodone HCl/Acetaminophen 1 ea PO Q6H PRN PRN 02/12/19 [Percocet 5-325 mg Tablet] levoFLOXacin tablet [Levaquin 500 mg PO Q48@0600 #5 tab 02/19/19 tablet] Docusate Sodium [Colace] 100 mg PO BID cap 02/23/19 Nepro with Carbsteady [Nepro Carb 120 ml PO TIDCM liquid 02/23/19 Steady] Polyethylene Glycol 3350 [Miralax] 17 gm PO DAILY packet 02/23/19 Furosemide 40 mg PO DAILY 02/25/19 Nortriptyline HCl 50 mg PO 02/25/19 Tuberculin,Purif.prot.deriv. 5 tu ID X1 02/25/19 [Tubersol, Aplisol, Ppd] Surgical History: Surgical History (Last Reviewed 02/12/19 @ 20:40 by Virgil Murray DO) H/O heart artery stent Z95.5 History of carpal tunnel surgery Z92.89 Presence of surgically created arteriovenous shunt for hemodialysis Z99.2 Surgical History: - - PCI, bilateral ureteral stent placements and removal, AVF creation, tunnel intervention, port placement. 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 Paternal History Items: Unknown - Patient was adopted and she does not know her family of origin to be able to provide any family medical history. Review of Systems Unable to obtain accurate/complete ROS d/t: Patient is confused, unable to answer questions VTE Information - Inpt Only VTE Present on Admission: No VTE Pharm Prophylaxis ordered?: Yes - Physical Exam Vitals/I&O's: Vital Signs Temp Pulse Resp BP Pulse Ox 98.2 F 92 16 93/71 99 02/25/19 06:11 02/25/19 08:10 02/25/19 08:10 02/25/19 08:10 02/25/19 08:10 Oxygen Delivery Method Room Air Weight: 124.8 kg Body Mass Index (BMI) 41.8 Finger Stick Blood Glucose 98 General: Alert, Cooperative, Confused, - - morbidly obese, actively hallucinating HEENT: Atraumatic, PERRLA, EOMI, Normocephalic Oral: Moist Mucosa Neck: Supple Lungs: Clear to auscultation, Normal air movement Cardiovascular: Regular rate, Regular Rhythm, Normal S1, Normal S2, No murmurs, - - RIJ tunneled dialysis catheter Abdomen: Bowel Sounds Present, Soft, Non Tender, Non-Distended, No Hepato- splenomegaly, Obese, - Extremities: No edema, - - wound vac to bilateral thigh wounds, see wound RN photos Skin: No rashes, No breakdown Musculoskeletal: No Tenderness to Palpation of Joints or Extremities Lymphatic: No Cervical, Supraclavicular, or Inguinal Adenopathy Neurological: Cranial nerves II-XII grossly intact, Neuro grossly intact Psych/Mental Status: Normal Affect, Appropriate Laboratory Results 02/25/19 06:40: WBC 16.4 H, RBC 3.42 L, Hgb 8.4 L, Hct 26.6 L, MCV 77.8 L, MCH 24.6 L, MCHC 31.6 L, RDW Std Deviation 50.0 H, RDW Coeff of Lu 18.0 H, Plt Count 186, MPV 9.4, Immature Gran % (Auto) 2.100 H, Neut % (Auto) 86.2 H, Lymph % (Auto) 4.2 L, [place] % (Auto) 7.0, Eos % (Auto) 0.3, Baso % (Auto) 0.2, Absolute Neuts (auto) 14.1 H, Absolute Lymphs (auto) 0.69 L, Nucleated RBC % 0 02/25/19 06:40: Sodium 139, Potassium 4.8, Chloride 103, Carbon Dioxide 25.0, Anion Gap 11, BUN 28 H, Creatinine 6.03 H, Estim Creat Clear Calc 12.14, Est GFR (MDRD) Af Amer 10 L, Est GFR (MDRD) Non-Af 8 L, BUN/Creatinine Ratio 4.6 L, Glucose 80, Calcium 8.4 L 02/25/19 08:10: Lactic Acid Pending 02/25/19 08:10: Ammonia Pending Current Medications Sodium Chloride () 1,000 mls @ 100 mls/hr IV .Q10H [facility] Assessment/Plan All Active Problems (Last Reviewed 02/12/19 @ 20:40 by Virgil Murray DO) Necrotizing soft tissue infection (Acute) Open wound of both lower extremities with complication (Acute) Calciphylaxis (Acute) Lower extremity weakness (Acute) Generalized weakness (Acute) Gastroparesis (Acute) Syncope (Acute) 43 year old F with past medical history of ESRD, now on hemodialysis, recently admitted for gastroparesis, initially on peritoneal dialysis, history of steal syndrome recently discharged 2 days ago to the nursing home facility comes in with progressive altered mental status. 1. Altered mental status secondary to polypharmacy and missed dialysis, Less likely secondary to infection as her wounds look not infected CAT scan of the brain is unremarkable Patient is on multiple medications including nortriptyline, Flexeril, oxycodone, nortriptyline, Lyrica, venlafaxine Blood cultures were taken in the emergency department Patient was started on empiric ceftriaxone The above-mentioned medications have been held Nephrology consulted, patient will be getting dialysis Would monitor patient's mentation 2. ESRD, history of steal syndrome, patient was on peritoneal dialysis, now on hemodialysis via right tunneled catheter Missed dialysis on 02/24/19 Nephrology consulted, dialysis today 3. Type II DM, not on medications, continue on blood glucose checks with insulin sliding scale 4. Recent excision for bilateral thigh skin necrosis, status post wound VAC, Wound RN consulted 5. Recent gastroparesis, will continue Zofran as needed 6. DVT PPx- Heparin SC Code Visit Inpatient E&M: 47454 Subs Hosp L2
--- NOTE | 2019-02-25 08:41 | ED.RN ---
Addendum entered by Anne Jameson 02/25/19 08:54: URINE HAS BROWNISH/MILKY APPEARANCE. PT PRODUCES VERY LITTLE URINE. Original Note: ASSISTED WITH URINATING IN BED ON BED EAVNS-NOT ABLE TO COLLECT CLEAN CATCH.
[2019-02-25 08:42] LABS: Lactic Acid 0.8 mmol/L (0.4-2.0)
[2019-02-25 08:44] LABS: Bacteria 0 SEEN /hpf (None Seen); Mucous, Urine 0 SEEN /hpf (<or=2+); Red Blood Cells-Urine 0 SEEN /hpf (0-5)
[2019-02-25 08:53] LABS: Color, Urine Yellow (Yellow); Glucose, Dipstick Normal (Normal); Ketone-Dipstick 5 mg/dl (Negative); Leukocyte Esterase-Dipstick 500 /ul (Negative); Nitrite-Dipstick Positive (Negative); Occult Blood-Urine 150 /ul (Negative); Protein-Dipstick 100 mg/dl (Negative); Specific Gravity, Urine 1.015 (1.002-1.030); Urine Bilirubin Dipstick Negative (Negative); Urine Clarity Turbid (Clear); Urine Urobilinogen Normal (Normal); Urine pH 6.5 (5.0 - 8.0)
[2019-02-25 08:54] LABS: Ammonia < 10.0 umol/L (11-32)
[2019-02-25 09:02] LABS: Squamous Epithelial Cells - UA 50-100 SEEN /hpf (5-10); White Blood Cells >100 SEEN /hpf (0-5)
[2019-02-25 09:31] VITALS: BP 134/103; PULSE 78; RESP 18; TEMP 36.7; O2SAT 98; BMI 47.9
[2019-02-25 09:43] VITALS: BMI 48.0
--- NOTE | 2019-02-25 10:42 | CASEMGMT ---
Patient is from [facility]. She was just sent there on Saturday02-23-19. will follow for d/c back to [facility] when medically ready. Plan: d/c back to [facility] Kaila MOON
[2019-02-25] MEDS: Ceftriaxone 1 GM/50 ML BAG IV (11:29)
--- NOTE | 2019-02-25 12:30 | CASEMGMT ---
SW spoke w/pt in room, confirmed w/pt the plan will be for pt to return to [facility] when medically ready. TESSA Barajas
--- NOTE | 2019-02-25 12:32 | NURSING ---
wound photo: left thigh
--- NOTE | 2019-02-25 12:38 | NURSING ---
wound photo: right thigh
--- NOTE | 2019-02-25 12:42 | NURSING ---
wound photo: right abdominal fold
--- NOTE | 2019-02-25 12:44 | NURSING ---
wound photo: left abdominal fold
[2019-02-25] MEDS: Heparin Injection (Vial) 5,000 UNIT/ML VIAL 5000 UNIT SC ×2 (14:51→21:24)
--- NOTE | 2019-02-25 15:02 | PCM.CONS.R ---
Consultation - Renal 02/25/19 PCP/ Referring MD: Requesting physician: Jaimee Horner MD Primary care physician: Melvi Eastman MD Reason for Consultation:: ESRD HD TTS, PD catheter malfxn - History of Present Illness History of Present Illness: The patient is a 43 year old morbidly obese F with ESRD on back-up hemodialysis due to poor acute PD catheter function. She underwent tunneled dialysis catheter placement 2 days ago and then was [facility]. She was recently admitted for intractable nausea and vomiting with ileus on KUB. She tolerated her oral diet. She has been receiving oxycodone for pain following her debridement of necrotic skin tissue on her lateral thighs bilaterally. She has very little bowel movement despite bowel prep. Her PD catheter still has not been evaluated by surgery yet. PD catheter was placed by Dr. Washington at [facility]. She was [facility] with antibiotics. She is to be admitted for altered mental status. Her last oxycodone dose was on 1125 at 2300 at the long term. Labs from the ER included lactic acid 0.8, ammonia < 10. CT scan of the brain was unremarkable. She is to receive hemodialysis today due to holiday schedule then back on Saturday for Saturday, , Saturday outpt schedule. - Allergies Allergies: Allergies ciprofloxacin [From Cipro] Adverse Reaction (Verified 02/25/19 06:33) Vomiting contrast dye Allergy (Severe, Uncoded 02/25/19 06:33) Anaphylaxis - Current Medications Current Medications: Current Medications Acetaminophen (Tylenol) 1,000 mg PO Q8 [facility] Last Admin: 02/25/19 14:41 Dose: Not Given Documented by: Aspirin (Ecotrin) 81 mg PO DAILY@0800 [facility] Bupropion HCl (Wellbutrin Xl) 300 mg PO DAILY [facility] Last Admin: 02/25/19 13:02 Dose: Not Given Documented by: Dextrose (D50w Syringe) 0 gm IV X1 PRN; Protocol PRN Reason: Hypoglycemia Docusate Sodium (Colace) 100 mg PO BID [facility] Last Admin: 02/25/19 12:45 Dose: Not Given Documented by: Furosemide (Lasix) 40 mg PO DAILY [facility] Last Admin: 02/25/19 13:02 Dose: Not Given Documented by: Glucagon () 1 mg IM .X1 PRN PRN Reason: Hypoglycemia Heparin Sodium (Porcine) (Heparin Na) 5,000 unit SC Q8 [facility] Last Admin: 02/25/19 14:51 Dose: 5,000 unit Documented by: Sodium Chloride () 250 mls @ 15 mls/hr IV .[id number] PRN PRN Reason: Saline Flush Ceftriaxone Sodium (Rocephin) 1 gm in 50 mls @ 100 mls/hr IV Q24 [facility] Insulin Human Lispro (Humalog Kwikpen (Bkc)) 0 unit SC Q6 [facility]; Protocol Nystatin (Mycostatin) 1 applic TOPICAL TID [facility]; Protocol Last Admin: 02/25/19 14:42 Dose: Not Given Documented by: Ondansetron HCl (Zofran) 4 mg IV Q6H PRN PRN PRN Reason: NAUSEA/VOMITING Polyethylene Glycol (Miralax) 17 gm PO DAILY [facility] Last Admin: 02/25/19 12:45 Dose: Not Given Documented by: Sodium Chloride () 10 - 40 ml IV UD PRN PRN Reason: SALINE FLUSH Venlafaxine HCl (Effexor Xr) 150 mg PO DAILY [facility] Last Admin: 02/25/19 13:02 Dose: Not Given Documented by: - Past Medical History Past Medical History (Chronic Problems): Chronic Problems (Last Reviewed 02/12/19 @ 20:40 by Virgil Murray DO) Skin necrosis (Chronic) bilateral thighs Patient on peritoneal dialysis (Chronic) ESRD (end stage renal disease) (Chronic) Debility (Chronic) Orthostatic hypotension (Chronic) Chronic renal failure, stage 4 (severe) (Chronic) Morbid obesity (Chronic) HTN (hypertension) (Chronic) Bilateral hydronephrosis (Chronic) Iron deficiency anemia (Chronic) Type II diabetes mellitus (Chronic) Coronary artery disease (Chronic) Chronic low back pain (Chronic) Hydroureter (Chronic) Bladder outlet obstruction (Chronic) - Past Surgical History Surgical History: - - PCI, bilateral ureteral stent placements and removal, AVF creation, tunnel intervention, port placement. - Social History Smoking Status: Unknown if ever smoked - Family History Maternal History Items: Unknown - Patient was adopted and she does not know her family of origin to be able to provide any family medical history. Paternal History Items: Unknown - Patient was adopted and she does not know her family of origin to be able to provide any family medical history. Review of Systems Unable to obtain accurate/complete ROS d/t: Patient with encephalopathic poor historian confused delirious disoriented. Patient Problems: Active and Suspected Problems (Last Reviewed 02/12/19 @ 20:40 by Virgil Murray DO) Encephalopathy acute (Acute) - Physical Exam Vitals/I&O's: Vital Signs Temp Pulse Resp BP Pulse Ox 98.1 F 78 18 134/103 H 98 02/25/19 09:31 02/25/19 09:31 02/25/19 09:31 02/25/19 09:31 02/25/19 09:31 Oxygen Delivery Method Room Air Weight: 119 kg Body Mass Index (BMI) 47.9 Finger Stick Blood Glucose 98 Intake and Output for Last 24 Hours 02/23/19 02/24/19 02/25/19 23:59 23:59 23:59 Intake Total 598.34 / 598.34 Balance 598.34 / 598.34 General: Confused, Disoriented - To time and place. Oriented to person HEENT: PERRLA, EOMI Oral: Dry Mucosa Neck: Supple Lungs: Clear to auscultation Cardiovascular: Regular rate Abdomen: Bowel Sounds Present, Soft, Non Tender, Non-Distended, Obese Extremities: No edema Skin: Ulcer/ Wound - Wound VAC with skin necrosis debridement Psych/Mental Status: Delusions, Depressed, Hallucinations, Restless Laboratory Results 02/25/19 06:40: WBC 16.4 H, RBC 3.42 L, Hgb 8.4 L, Hct 26.6 L, MCV 77.8 L, MCH 24.6 L, MCHC 31.6 L, RDW Std Deviation 50.0 H, RDW Coeff of Lu 18.0 H, Plt Count 186, MPV 9.4, Immature Gran % (Auto) 2.100 H, Neut % (Auto) 86.2 H, Lymph % (Auto) 4.2 L, [place] % (Auto) 7.0, Eos % (Auto) 0.3, Baso % (Auto) 0.2, Absolute Neuts (auto) 14.1 H, Absolute Lymphs (auto) 0.69 L, Nucleated RBC % 0 02/25/19 06:40: Sodium 139, Potassium 4.8, Chloride 103, Carbon Dioxide 25.0, Anion Gap 11, BUN 28 H, Creatinine 6.03 H, Estim Creat Clear Calc 12.14, Est GFR (MDRD) Af Amer 10 L, Est GFR (MDRD) Non-Af 8 L, BUN/Creatinine Ratio 4.6 L, Glucose 80, Calcium 8.4 L 02/25/19 08:10: Lactic Acid 0.8 02/25/19 08:10: Ammonia < 10.0 L 02/25/19 08:40: Urine Color Yellow, Urine Clarity Turbid, Urine pH 6.5, Ur Specific [place] 1.015, Urine Protein 100 H, Urine Glucose (UA) Normal, Urine Ketones 5 H, Urine Occult Blood 150 H, Urine Nitrite Positive H, Urine Bilirubin Negative, Urine Urobilinogen Normal, Ur Leukocyte Esterase 500 H, Urine RBC 0 SEEN, Urine WBC >100 SEEN, Ur Squamous Epith Cells 50-100 SEEN, Urine Bacteria 0 SEEN, Urine Mucus 0 SEEN Clinical Impression(s) from Imaging Studies Brain CT 02/25/19 07:31 IMPRESSION: Normal unenhanced CT scan of the brain. Electronically Signed: Tram Reed, at 8:12 EST Tel , Service support , Current Medications Acetaminophen (Tylenol) 1,000 mg PO Q8 [facility] Last Admin: 02/25/19 14:41 Dose: Not Given Documented by: Aspirin (Ecotrin) 81 mg PO DAILY@0800 [facility] Bupropion HCl (Wellbutrin Xl) 300 mg PO DAILY [facility] Last Admin: 02/25/19 13:02 Dose: Not Given Documented by: Dextrose (D50w Syringe) 0 gm IV X1 PRN; Protocol PRN Reason: Hypoglycemia Docusate Sodium (Colace) 100 mg PO BID [facility] Last Admin: 02/25/19 12:45 Dose: Not Given Documented by: Furosemide (Lasix) 40 mg PO DAILY [facility] Last Admin: 02/25/19 13:02 Dose: Not Given Documented by: Glucagon () 1 mg IM .X1 PRN PRN Reason: Hypoglycemia Heparin Sodium (Porcine) (Heparin Na) 5,000 unit SC Q8 [facility] Last Admin: 02/25/19 14:51 Dose: 5,000 unit Documented by: Sodium Chloride () 250 mls @ 15 mls/hr IV .[id number] PRN PRN Reason: Saline Flush Ceftriaxone Sodium (Rocephin) 1 gm in 50 mls @ 100 mls/hr IV Q24 [facility] Insulin Human Lispro (Humalog Kwikpen (Bkc)) 0 unit SC Q6 [facility]; Protocol Nystatin (Mycostatin) 1 applic TOPICAL TID [facility]; Protocol Last Admin: 02/25/19 14:42 Dose: Not Given Documented by: Ondansetron HCl (Zofran) 4 mg IV Q6H PRN PRN PRN Reason: NAUSEA/VOMITING Polyethylene Glycol (Miralax) 17 gm PO DAILY [facility] Last Admin: 02/25/19 12:45 Dose: Not Given Documented by: Sodium Chloride () 10 - 40 ml IV UD PRN PRN Reason: SALINE FLUSH Venlafaxine HCl (Effexor Xr) 150 mg PO DAILY [facility] Last Admin: 02/25/19 13:02 Dose: Not Given Documented by: Assessment/Plan All Active Problems (Last Reviewed 02/12/19 @ 20:40 by Virgil Murray DO) Encephalopathy acute (Acute) Necrotizing soft tissue infection (Acute) Open wound of both lower extremities with complication (Acute) Calciphylaxis (Acute) Lower extremity weakness (Acute) Generalized weakness (Acute) Gastroparesis (Acute) Syncope (Acute) 1. ESRD hemodialysis today due to the holidays then back on Saturday schedule. PD catheter malfunctioning will require evaluation by general surgery. PD catheter flushes but not draining. Seen on dialysis 2. Altered mental status, metabolic encephalopathy. Avoid narcotic use. 3. Anemia of ckd mynor on dialysis 4. Debridement of skin necrosis bilateral lateral thighs with wound VAC applied. Continue IV antibiotic therapy. Biopsy negative for calciphylaxis 5. History of obstructive uropathy 6. Diabetes mellitus type 2 primary service management 7. Morbid obesity 8. Constipation continue bowel prep 9. Debility ECF
[2019-02-25 15:22] VITALS: BP 143/73; PULSE 88; RESP 18; TEMP 37; O2SAT 93
--- NOTE | 2019-02-25 15:57 | CASEMGMT ---
Updates faxed to [facility]. 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
[2019-02-25 18:40] LABS: Bedside Glucose 76 mg/dL (70-110)
--- NOTE | 2019-02-25 19:08 | DIALYSIS ---
Hemodialysis tx completed x 3.75 hours without complications. Pt tolerated tx fair, vitals stable throughout tx. Fluid removed 2,400ml using crit-line monitor to B-profile. No improvement in mentation post dialysis. Verbal report given to JULITO Contreras. Next HD tx Saturday02/28/19
[2019-02-25 21:20] VITALS: BP 124/54; PULSE 89; RESP 16; TEMP 36.6; O2SAT 96
[2019-02-25 23:41] LABS: Bedside Glucose 71 mg/dL (70-110)
[2019-02-26 02:40] VITALS: BP 120/72; PULSE 84; RESP 16; TEMP 36.7; O2SAT 94
[2019-02-26] MEDS: Heparin Injection (Vial) 5,000 UNIT/ML VIAL 5000 UNIT SC ×3 (05:21→21:34)
[2019-02-26 06:55] LABS: Bedside Glucose 76 mg/dL (70-110)
[2019-02-26 08:08] VITALS: BP 130/58; PULSE 69; RESP 15; TEMP 37.2; O2SAT 97
[2019-02-26] MEDS: buPROPion (XL) 300 MG TABLET.XL PO (08:17)
[2019-02-26] MEDS: Aspirin E.C. 81 MG Tablet PO (08:17)
[2019-02-26] MEDS: Docusate Sodium 100 MG Capsule PO (08:17)
[2019-02-26] MEDS: Venlafaxine XR 150 MG Capsule PO (08:18)
[2019-02-26] MEDS: Furosemide 40 MG Tablet PO (08:18)
[2019-02-26] MEDS: Acetaminophen 500 MG Tablet 1000 MG PO ×2 (08:19→14:32)
[2019-02-26] MEDS: Ceftriaxone 1 GM/50 ML BAG IV (11:10)
[2019-02-26] MEDS: 0.9% Saline Lock 10 ML Syringe IV ×2 (11:11→11:51)
[2019-02-26] MEDS: Polyethylene Glycol 3350 17 GM PACKET PO (11:12)
[2019-02-26] MEDS: Nepro with Carbsteady 237 ML Liquid 120 ML PO ×2 (11:12→17:51)
[2019-02-26 11:30] LABS: Bedside Glucose 79 mg/dL (70-110)
--- NOTE | 2019-02-26 12:56 | PN_ITS ---
Reason for Visit: Follow-up for altered mental status along with multiple comorbidities ESRD on hemodialysis, skin necrosis bilateral thighs. Subjective: Patient still looks confused although more awake. Answer simple questions. Vitals/I&O's: Vital Signs Temp Pulse Resp BP Pulse Ox 99 F 69 15 130/58 H 97 02/26/19 08:08 02/26/19 08:08 02/26/19 08:08 02/26/19 08:08 02/26/19 08:08 Oxygen Delivery Method Room Air Weight: 263 lb 0.183 oz Body Mass Index (BMI) 47.9 Finger Stick Blood Glucose 98 Intake and Output for Last 24 Hours 02/24/19 02/25/19 02/26/19 23:59 23:59 23:59 Intake Total 598.34 / 598.34 150 / 150 Output Total 2400 / 2400 0 / 0 Balance -1801.66 / -1801.66 150 / 150 General: Oriented x3, Confused, Lethargic HEENT: Atraumatic, PERRLA, EOMI, Normocephalic Neck: Supple, No JVD, Negative Carotid Bruits Lungs: No rhonchi, No wheeze, No rales, Diminished - Air entry diminished in bilateral lung bases. Cardiovascular: Regular rate, Normal S1, Normal S2, No murmurs Abdomen: Bowel Sounds Present, Soft, Non Tender, Non-Distended, - - Patient has peritoneal dialysis catheter Extremities: Edema Skin: Ulcer/ Wound, - - His skin is thick, rough with multiple dry scales Musculoskeletal: Arthritic Changes, Muscle Wasting, - - Wound VAC present in both thighs anteriorly. Laboratory Results 02/25/19 18:32: POC Glucose 76 02/25/19 23:36: POC Glucose 71 02/26/19 05:16: POC Glucose 76 02/26/19 11:10: POC Glucose 79 Current Medications Acetaminophen (Tylenol) 1,000 mg PO Q8 [facility] Last Admin: 02/26/19 08:19 Dose: 1,000 mg Documented by: Aspirin (Ecotrin) 81 mg PO DAILY@0800 [facility] Last Admin: 02/26/19 08:17 Dose: 81 mg Documented by: Bupropion HCl (Wellbutrin Xl) 300 mg PO DAILY [facility] Last Admin: 02/26/19 08:17 Dose: 300 mg Documented by: Dextrose (D50w Syringe) 0 gm IV X1 PRN; Protocol PRN Reason: Hypoglycemia Docusate Sodium (Colace) 100 mg PO BID [facility] Last Admin: 02/26/19 08:17 Dose: 100 mg Documented by: Furosemide (Lasix) 40 mg PO DAILY [facility] Last Admin: 02/26/19 08:18 Dose: 40 mg Documented by: Glucagon () 1 mg IM .X1 PRN PRN Reason: Hypoglycemia Heparin Sodium (Porcine) (Heparin Na) 5,000 unit SC Q8 [facility] Last Admin: 02/26/19 05:21 Dose: 5,000 unit Documented by: Sodium Chloride () 250 mls @ 15 mls/hr IV .[id number] PRN PRN Reason: Saline Flush Ceftriaxone Sodium (Rocephin) 1 gm in 50 mls @ 100 mls/hr IV Q24 [facility] Last Infusion: 02/26/19 11:50 Dose: Infused Documented by: Insulin Human Lispro (Humalog Kwikpen (Bkc)) 0 unit SC Q6 [facility]; Protocol Last Admin: 02/26/19 11:11 Dose: Not Given Documented by: Nystatin (Mycostatin) 1 applic TOPICAL TID [facility]; Protocol Last Admin: 02/26/19 05:18 Dose: Not Given Documented by: Ondansetron HCl (Zofran) 4 mg IV Q6H PRN PRN PRN Reason: NAUSEA/VOMITING Polyethylene Glycol (Miralax) 17 gm PO DAILY [facility] Last Admin: 02/26/19 11:12 Dose: 17 gm Documented by: Sodium Chloride () 10 - 40 ml IV UD PRN PRN Reason: SALINE FLUSH Last Admin: 02/26/19 11:51 Dose: 10 ml Documented by: Venlafaxine HCl (Effexor Xr) 150 mg PO DAILY [facility] Last Admin: 02/26/19 08:18 Dose: 150 mg Documented by: Medical Necessity - Tobacco Use Smoking Status: Unknown if ever smoked Assessment/Plan All Active Problems (Last Reviewed 02/12/19 @ 20:40 by Virgil Murray DO) Encephalopathy acute (Acute) Necrotizing soft tissue infection (Acute) Open wound of both lower extremities with complication (Acute) Calciphylaxis (Acute) Lower extremity weakness (Acute) Generalized weakness (Acute) Gastroparesis (Acute) Syncope (Acute) This is a 43 year old F with past medical history of ESRD, initially on peritoneal dialysis and currently on hemodialysis, recently admitted for gastroparesis an ileus and was discharged after putting tunneled dialysis catheter on 02/23 came back with altered mental status. 1. Acute encephalopathy seems predominantly polypharmacy's/metabolic secondary to missed hemodialysis. CT brain is unremarkable. on multiple medications including nortriptyline, Flexeril, oxycodone, nortriptyline, Lyrica, venlafaxine. Medications were held. Blood cultures are pending. Patient is mostly dry. UA positive nitrite, WBC more than 100 cells, squamous epithelial 5200 cells. Patient was started on empiric ceftriaxone 2. ESRD, currently on hemodialysis. Patient still has peritoneal dialysis catheter. Missed dialysis on 02/24/19. Patient was seen by juice standardizer and was dialyzed on 02/25 3. Type II DM, not on medications, continue on blood glucose checks with insulin sliding scale. Blood sugars are controlled 4. Recent excision for bilateral thigh skin necrosis, status post wound VAC: Patient was seen by wound nurse. Patient has right and left abdominal fold skin tear along with bilateral thigh skin necrosis. Wound photos were reviewed. Wound VAC was placed. 5. Recent gastroparesis, will continue Zofran as needed 6. DVT PPx- Heparin SC Code Visit Inpatient E&M: 26054 Subs Hosp L2
[2019-02-26 14:40] VITALS: BP 142/95; PULSE 63; RESP 15; TEMP 36.6; O2SAT 95
[2019-02-26 17:55] LABS: Bedside Glucose 68 mg/dL (70-110)
[2019-02-26 18:55] LABS: Bedside Glucose 92 mg/dL (70-110)
[2019-02-26 21:37] VITALS: BP 115/88; PULSE 87; RESP 18; TEMP 36.8; O2SAT 92
[2019-02-26 23:51] LABS: Bedside Glucose 97 mg/dL (70-110)
[2019-02-27 03:30] VITALS: BP 91/51; PULSE 69; RESP 16; TEMP 36.4; O2SAT 99
[2019-02-27] MEDS: Acetaminophen 500 MG Tablet 1000 MG PO ×2 (05:38→14:24)
[2019-02-27] MEDS: Heparin Injection (Vial) 5,000 UNIT/ML VIAL 5000 UNIT SC (05:38)
[2019-02-27 05:51] LABS: Bedside Glucose 96 mg/dL (70-110)
[2019-02-27 09:15] VITALS: BP 127/66; PULSE 84; RESP 18; TEMP 36.7; O2SAT 100
[2019-02-27] MEDS: Docusate Sodium 100 MG Capsule PO (09:19)
[2019-02-27] MEDS: Furosemide 40 MG Tablet PO (09:19)
[2019-02-27] MEDS: Aspirin E.C. 81 MG Tablet PO (09:19)
[2019-02-27] MEDS: Venlafaxine XR 150 MG Capsule PO (09:20)
[2019-02-27] MEDS: buPROPion (XL) 300 MG TABLET.XL PO (09:20)
[2019-02-27] MEDS: 0.9% Saline Lock 10 ML Syringe IV ×2 (09:20→14:25)
[2019-02-27] MEDS: Ceftriaxone 1 GM/50 ML BAG IV (09:20)
[2019-02-27] MEDS: Polyethylene Glycol 3350 17 GM PACKET PO (09:20)
--- NOTE | 2019-02-27 10:50 | PCM.TXEXTCAR ---
- Diet 02/27/19 10:50 NPO [Diet: Nothing Per Oral] Is pt able to select menu?: Yes Diet Comments: TOTAL FEED PRN; seated at 90 degrees; meds w/ purees - Routine Orders/Code Status Suppository Type: Dulcolax 10mg Suppository Frequency: Daily PRN Routine Lab Work: CBC - WEEKLY, BMP Code Status: Full Code - Wound(s) left thigh Wound Type: Open Surgical Wound Dressing Change: KCI wound VAC right thigh Wound Type: Open Surgical Wound Dressing Change: KCI wound VAC left abdominal fold Wound Type: moisture related open area Dressing Change: Aquacel right abdominal fold Wound Type: moisture related open area Dressing Change: Aquacel - Therapies Weight Bearing: Weight bearing as tolerated Extremity Affected:: Bilateral Lower Physical Therapy: Eval and Treat Occupational Therapy: Eval and Treat Speech Therapy: Eval and Treat - Allergies/Procedures Done in Hospital Allergies/Adverse Reactions: Allergies ciprofloxacin [From Cipro] Adverse Reaction (Verified 02/25/19 06:33) Vomiting contrast dye Allergy (Severe, Uncoded 02/25/19 06:33) Anaphylaxis - Type of Care/Length of Stay Estimated LOS: Convalescent Care Less Than 30 days Type of Care Needed: Skilled Rehab Potential: Fair Prognosis: Fair - Additional Orders/Day of Discharge Additional Orders: Follow-up with psychiatrist Dr Chou [phone] in 2-3 weeks Day of Discharge: 02/27/19 - Dietary and Speech Recommendations Dietitian Recommendations/Changes: Recommend diet change to CHO controlled, low sodium w/ fluid restriction as indicated. Pt w/ high protein needs d/t wounds and dialysis treatments; protein restricted diet NOT indicated currently. Recommend 1 packet Graeme BID for wound healing. Will provide Nepro CHO steady 240 ml at meals. - Follow Up Care Primary Care Physician: Melvi Eastman MD [Primary Care Provider] - Please follow up with your Primary Care Physician in: IN 1 week Please Follow Up With: Betty Odonnell DO When: on HD Please Follow Up With: Erick Cuevas MD When: In wound center in 2 week Please Follow Up With: Dr Chou
--- NOTE | 2019-02-27 10:55 | DS.PCM_ITS ---
Discharge Date and Diagnosis Date of Admission: 02/25/19 Date of Discharge: 02/27/19 - Primary Discharge Diagnosis Patient was admitted with altered mental status. She understands, comprehensive and tox appropriately. She is awake alert and oriented x3. She is sleepy and watching TV most of the time. - Secondary Discharge Diagnosis Chronic Problems (Last Reviewed 02/12/19 @ 20:40 by Virgil Murray DO) Skin necrosis (Chronic) bilateral thighs Patient on peritoneal dialysis (Chronic) ESRD (end stage renal disease) (Chronic) Debility (Chronic) Orthostatic hypotension (Chronic) Chronic renal failure, stage 4 (severe) (Chronic) Morbid obesity (Chronic) HTN (hypertension) (Chronic) Bilateral hydronephrosis (Chronic) Iron deficiency anemia (Chronic) Type II diabetes mellitus (Chronic) Coronary artery disease (Chronic) Chronic low back pain (Chronic) Hydroureter (Chronic) Bladder outlet obstruction (Chronic) Hospital Course and Treatment Imaging Results: 02/27/19 10:54 Chest 1 View (Portable) [RAD] Routine Consultations 02/25/19 09:57 Consult: Onc/Wound/desk manager Routine Comment: Reason for Consult:: bilat wound vacs, abd wound Operations: None Summary of Care Provided: This is a 43 year old F with past medical history of ESRD, initially on peritoneal dialysis and currently on hemodialysis, recently admitted for gastroparesis an ileus and was discharged after putting tunneled dialysis catheter on 02/23 came back with altered mental status. 1. Acute encephalopathy seems predominantly polypharmacy's/metabolic secondary to missed hemodialysis. CT brain is unremarkable. on multiple medications including nortriptyline, Flexeril, oxycodone, nortriptyline, Lyrica, venlafaxine. Medications were held. Blood cultures are pending. Patient is mostly dry. UA positive nitrite, WBC more than 100 cells, squamous epithelial 5200 cells. Patient was started on empiric ceftriaxone 02/27: Preliminary urine culture shows gram-positive organisms [id number] colonies. Discussed with the microbiology lab. Seems 2-3 organisms most probably contamination/colonization. Ammonia is less than 10. Electrolytes in acceptable range as patient is on hemodialysis Patient did not had fever or chills during this hospital course and previous hospital course. Mild leukocytosis on 02/25 possible inflammatory. 2. ESRD, currently on hemodialysis. Patient still has peritoneal dialysis catheter. Missed dialysis on 02/24/19. Patient was seen by aircraft restorer and was dialyzed on 02/25 02/27: On further discussion with heel caser and social science research assistant it seems patient did not missed the hemodialysis. 3. Type II DM, not on medications, continue on blood glucose checks with insulin sliding scale. Blood sugars are controlled 4. Recent excision for bilateral thigh skin necrosis, status post wound VAC: Patient was seen by wound nurse. Patient has right and left abdominal fold skin tear along with bilateral thigh skin necrosis. Wound photos were reviewed. Wound VAC was placed. Patient is on antibiotic Levaquin, last date 02/27. Patient on last admission was discharged on Levaquin for 5 days but was changed to ceftriaxone at time of admission 02/27: Patient discharged back on Levaquin 1 more dose. 5. Recent gastroparesis, will continue Zofran as needed 6. DVT PPx- Heparin SC [] Discharge medication reconciliation done. Discharge follow-up instructions completed. Discharge process discussed with the patient and all questions were answered to patient's satisfaction. Discussed with the nursing staff, patient's mental status mild lethargy probably her baseline as it did not improve in the last 2 days. Multiple antianxiety/antidepression medication dosages were changed or discontinued. Follow-up with psychiatrist in 3 weeks. Total time spent, exact 35 minutes on discharge meds reconciliation, examination, review of imaging and blood test and discussion with the patient on follow-up instructions. Objective: General: Oriented x3, Confused, Lethargic HEENT: Atraumatic, PERRLA, EOMI, Normocephalic Neck: Supple, No JVD, Negative Carotid Bruits. Permacath cath. Lungs: No rhonchi, No wheeze, No rales, Diminished - Air entry diminished in bilateral lung bases. Cardiovascular: Regular rate, Normal S1, Normal S2, No murmurs Abdomen: Bowel Sounds Present, Soft, Non Tender, Non-Distended, Patient has peritoneal dialysis catheter Extremities: Edema Skin: Ulcer/ Wound, His skin is thick, rough with multiple dry scales; calciphylaxis. Wound VAC in both thighs. Musculoskeletal: Arthritic Changes, Muscle Wasting, - - Wound VAC present in both thighs anteriorly. Neuro: Bilateral lower extremity weakness secondary to thigh wound and quadriceps muscle wasting. Muscle strength 3-4/5 at knee and hip joints - Physical Exam Vitals/I&O's: Vital Signs Temp Pulse Resp BP Pulse Ox 98.0 F 84 18 127/66 H 100 02/27/19 09:15 02/27/19 09:15 02/27/19 09:15 02/27/19 09:15 02/27/19 09:15 Oxygen Delivery Method Room Air Weight: 262 lb 2.074 oz Body Mass Index (BMI) 47.9 Finger Stick Blood Glucose 98 Intake and Output for Last 24 Hours 02/25/19 02/26/19 02/27/19 23:59 23:59 23:59 Intake Total 598.34 / 598.34 270 / 270 50 / 50 Output Total 2400 / 2400 0 / 0 Balance -1801.66 / -1801.66 270 / 270 50 / 50 General: Alert, Oriented x3, Cooperative, Lethargic HEENT: Atraumatic, PERRLA, EOMI, Normocephalic Oral: Dry Mucosa Neck: Supple, No JVD, Negative Carotid Bruits Lungs: Clear to auscultation, No rhonchi, No wheeze, No rales, Diminished - Entry is diminished. Cardiovascular: Regular rate, Regular Rhythm, Normal S1, Normal S2, No murmurs Abdomen: Bowel Sounds Present, Soft, Non Tender Extremities: Capillary Refill Less than 3 Seconds Skin: No rashes, No breakdown Musculoskeletal: No Tenderness to Palpation of Joints or Extremities Neurological: Cranial nerves II-XII grossly intact Psych/Mental Status: Normal Affect, Appropriate Microbiology Past 72 Hours 02/25/19 15:05 Urine, Catheterized Urine Culture - Preliminary Gram positive organism 02/25/19 08:10 Blood Culture (Wb) - Central Line Blood Culture - Preliminary No growth in 48 hours. 02/25/19 10:10 Blood Culture (Wb) - Anticubital Right Blood Culture - Preliminary No growth in 48 hours. Laboratory Results 02/26/19 11:10: POC Glucose 79 02/26/19 17:46: POC Glucose 68 L 02/26/19 18:53: POC Glucose 92 02/26/19 23:48: POC Glucose 97 02/27/19 05:36: POC Glucose 96 Current Medications Acetaminophen (Tylenol) 1,000 mg PO Q8 [facility] Last Admin: 02/27/19 05:38 Dose: 1,000 mg Documented by: Aspirin (Ecotrin) 81 mg PO DAILY@0800 [facility] Last Admin: 02/27/19 09:19 Dose: 81 mg Documented by: Bupropion HCl (Wellbutrin Xl) 300 mg PO DAILY [facility] Last Admin: 02/27/19 09:20 Dose: 300 mg Documented by: Dextrose (D50w Syringe) 0 gm IV X1 PRN; Protocol PRN Reason: Hypoglycemia Docusate Sodium (Colace) 100 mg PO BID [facility] Last Admin: 02/27/19 09:19 Dose: 100 mg Documented by: Furosemide (Lasix) 40 mg PO DAILY [facility] Last Admin: 02/27/19 09:19 Dose: 40 mg Documented by: Glucagon () 1 mg IM .X1 PRN PRN Reason: Hypoglycemia Heparin Sodium (Porcine) (Heparin Na) 5,000 unit SC Q8 [facility] Last Admin: 02/27/19 05:38 Dose: 5,000 unit Documented by: Sodium Chloride () 250 mls @ 15 mls/hr IV .[id number] PRN PRN Reason: Saline Flush Ceftriaxone Sodium (Rocephin) 1 gm in 50 mls @ 100 mls/hr IV Q24 [facility] Last Infusion: 02/27/19 09:50 Dose: Infused Documented by: Insulin Human Lispro (Humalog Kwikpen (Bkc)) 0 unit SC Q6 [facility]; Protocol Last Admin: 02/27/19 05:38 Dose: Not Given Documented by: Nystatin (Mycostatin) 1 applic TOPICAL TID [facility]; Protocol Last Admin: 02/27/19 05:39 Dose: Not Given Documented by: Ondansetron HCl (Zofran) 4 mg IV Q6H PRN PRN PRN Reason: NAUSEA/VOMITING Polyethylene Glycol (Miralax) 17 gm PO DAILY [facility] Last Admin: 02/27/19 09:20 Dose: 17 gm Documented by: Sodium Chloride () 10 - 40 ml IV UD PRN PRN Reason: SALINE FLUSH Last Admin: 02/27/19 09:20 Dose: 10 ml Documented by: Venlafaxine HCl (Effexor Xr) 150 mg PO DAILY [facility] Last Admin: 02/27/19 09:20 Dose: 150 mg Documented by: Home Medications: Medications to take at Discharge Ergocalciferol [Vitamin D] 50,000 unit PO WE 04/18/17 Aspirin E.C. [Ecotrin] 81 mg PO DAILY@0800 07/15/18 Bupropion HCl [Bupropion Xl] 300 mg PO DAILY 09/22/18 cycloBENZAPRine HCl [Flexeril] 10 mg PO TID PRN #20 tab 12/26/18 Ondansetron [Zofran Odt] 4 mg PO Q8H PRN PRN #10 tab 02/12/19 Oxycodone HCl/Acetaminophen [Percocet 5-325 mg Tablet] 1 ea PO Q6H PRN PRN 02/12/19 Docusate Sodium [Colace] 100 mg PO BID cap 02/23/19 Nepro with Carbsteady [Nepro Carb Steady] 120 ml PO TIDCM liquid 02/23/19 Polyethylene Glycol 3350 [Miralax] 17 gm PO DAILY packet 02/23/19 Furosemide 40 mg PO DAILY 02/25/19 Tuberculin,Purif.prot.deriv. [Tubersol, Aplisol, Ppd] 5 tu ID X1 02/25/19 Guaifenesin [Mucinex] 1,200 mg PO BID #14 tab.er.12h 02/27/19 Nortriptyline HCl [Pamelor] 25 mg PO QHS #0 02/27/19 Nystatin [Mycostatin] 1 applic TOPICAL TID tube 02/27/19 Pregabalin [Lyrica] 50 mg PO DAILY #0 02/27/19 Venlafaxine XR [Effexor Xr] 75 mg PO DAILY #0 02/27/19 levoFLOXacin tablet [Levaquin tablet] 500 mg PO Q48@0600 #5 tab 02/27/19 Following Prescrptions Were Given to Patient: Guaifenesin [Mucinex] 1,200 mg PO BID #14 tab.er.12h Transmission Status: Received by [facility]OM[facility]1954 [facility] Primary Care Physician: Melvi Eastman MD [Primary Care Provider] - Please follow up with your Primary Care Physician in: IN 1 week Please Follow Up With: Betty Odonnell DO When: on HD Please Follow Up With: Erick Cuevas MD When: In wound center in 2 week Please Follow Up With: Dr Chou Medical Necessity - Tobacco Use Smoking Status: Unknown if ever smoked Meaningful Use Info Meaningful Use Diagnoses (Choose all that apply): None applicable Code Visit Inpatient E&M: 35026 Disch Hosp
--- NOTE | 2019-02-27 11:30 | CASEMGMT ---
RAIZA spoke with covering purchasing coordinator letting her know patient will be returning today. SW faxed her updates. Kaila MOON
--- NOTE | 2019-02-27 12:03 | RAD_ITS ---
STUDY: X-RAY CHEST REASON FOR EXAM: Female, 43 years old. TECHNIQUE: 1 view COMPARISON: February 23, 2019 FINDINGS: The lungs are clear and expanded. There is no demonstrated pleural abnormality. There is elevation of the right hemidiaphragm. The heart is markedly enlarged Normal mediastinum and anita. Normal visualized pulmonary arteries. Normal visualized aortic arch and descending thoracic aorta. Normal visualized thoracic spine. Normal visualized ribs, clavicles, and shoulders. There is no demonstrated abnormality of the visualized soft tissue structures of the upper abdomen. Permacath is present with the tip in the superior vena cava close to the right atrium. RAD/Chest 1 View (Portable) IMPRESSION: No active intrathoracic disease Electronically Signed: Tram Reed, at 12:31 EST Tel , Service support ,
[2019-02-27 14:16] LABS: Bedside Glucose 86 mg/dL (70-110)
[2019-02-27 14:21] VITALS: BP 144/87; PULSE 90; RESP 18; TEMP 36.9; O2SAT 95
[2019-02-27] MEDS: Ondansetron 4 MG/2 ML Vial IV (14:25)
--- NOTE | 2019-02-27 14:47 | CASEMGMT ---
Faxed orders to [facility]. Called [facility] and arranged for patient to get picked up at 3p via cot. SW notified patient and she wanted SW to notify her mom. SW called patient's mom and let her know. SW also notified [facility] of 3p burr picker time. Plan: d/c back to [facility] under skilled level of care on a convalescent stay. [facility] transported via cot. Kaila CORONADO MSW
--- NOTE | 2019-02-27 14:51 | NURSING ---
Report called to nurse López at [facility]. Patient transport will arrive approx. 1500.
--- NOTE | 2019-02-27 15:09 | NURSING ---
Update called to Veronica, patient's mother per request. Mother, Veronica has concerns and wants to call her. Number of Veronica passed to hospitalist.
== END 2019-02-27 15:07 | disposition skilled nursing facility (03) | DRG 91 ==
LOC: ED 08:47 → PCU 08:50
PROVIDERS: Admitting Provider Internal Medicine; Emergency Provider Emergency Medicine; Family Provider Internal Medicine; PCP Internal Medicine; Visit Provider Internal Medicine
DX: G92 Toxic encephalopathy (principal); N18.6 End stage renal disease; Z68.42 Body mass index [BMI] 45.0-49.9, adult; E11.52 Type 2 diabetes mellitus with diabetic peripheral angiopathy with gangrene; I96 Gangrene, not elsewhere classified; I12.0 Hypertensive chronic kidney disease with stage 5 chronic kidney disease or end stage renal disease; T50.915A Adverse effect of multiple unspecified drugs, medicaments and biological substances, initial encounter; E66.01 Morbid (severe) obesity due to excess calories; Z99.2 Dependence on renal dialysis; E11.22 Type 2 diabetes mellitus with diabetic chronic kidney disease
CPT/HCPCS: 36415; 70450; 71045; 80048; 81001; 82140; 82962; 83605; 85025; 87040; 87086; 87088; 90937; 92526; 92610; 97162; 97166; 99285; J7030; A4216; G0257; J2405; Q5106

== ENCOUNTER 2019-03-04 16:31 | Emergency (ER) | payer MEDICARE, MEDICAID, SELFPAY ==
[2019-03-04 16:32] VITALS: BP 94/60; PULSE 97; RESP 16; TEMP 36.7; O2SAT 99; BMI 46.5
--- NOTE | 2019-03-04 17:30 | ED.VIS.GEN ---
History of Present Illness Chief Complaint: Wound Check Informant: Patient Onset: - - Unknown Context: Gradual Onset Timing: Continuous Quality: Reportedly wound is larger Location: Anterior lateral right and left thigh Current Severity: - - Uncertain Maximum Severity: - - Uncertain Worsened by: Unknown Relieved by: Nothing Associated Symptoms: Patient has no symptoms Narrative: Patient states the nurse has moved to [place] and the wound nurse are concerned the wound may be slightly bigger. She denies fever, chills night sweats. There is no drainage. She states she is prone to infection and had a infection that required formal debridement by Dr. Cuevas Patient states she is prone to infections because she is on dialysis and immune suppressed. She has a wound VAC on the right and left proximal lateral anterior thigh wounds. There is bruising noted anterior and medial mid thigh. Patient was unaware of this. Prior similar symptoms: Yes Recent Illness/Hospitalization: Yes - Past Medical History (1) Calciphylaxis Status: Acute (2) Encephalopathy acute Status: Acute (3) Gastroparesis Status: Acute (4) Generalized weakness Status: Acute (5) Lower extremity weakness Status: Acute (6) Necrotizing soft tissue infection Status: Acute (7) Syncope Status: Acute (8) Bilateral hydronephrosis Status: Chronic (9) Bladder outlet obstruction Status: Chronic (10) Chronic renal failure, stage 4 (severe) Status: Chronic (11) Coronary artery disease Status: Chronic (12) Debility Status: Chronic (13) HTN (hypertension) Status: Chronic (14) Iron deficiency anemia Status: Chronic (15) Morbid obesity Status: Chronic Past Medical History - Allergies and Home Meds Allergies/Adverse Reactions: Allergies ciprofloxacin [From Cipro] Adverse Reaction (Verified 03/04/19 16:33) Vomiting contrast dye Allergy (Severe, Uncoded 03/04/19 16:33) Anaphylaxis Primary Care Physician: Melvi Eastman MD [Primary Care Provider] - Prior records reviewed: Yes Surgical History: - - PCI, bilateral ureteral stent placements and removal, AVF creation, tunnel intervention, port placement. Lives: Long Term Smoking Status: Never smoker Alcohol: None Drugs: None - Family History Maternal Family History: Reports: Unknown - Patient was adopted and she does not know her family of origin to be able to provide any family medical history. Paternal Family History: Reports: Unknown - Patient was adopted and she does not know her family of origin to be able to provide any family medical history. Review of Systems General: Denies: Chills, Fever, Sweats Eyes: Denies: Visual changes - bilaterally, Blurred Vision - bilaterally, Diplopia ENT: Denies: Bilateral ear pain, Rhinorrhea, Sore throat Cardiovascular: Denies: Chest pain, Palpitations, Heart racing Respiratory: Denies: Dyspnea, Cough, Dyspnea on exertion Gastrointestinal: Denies: Abdominal pain, Nausea, Vomiting, Diarrhea, Melena, Hematochezia Genitourinary: Denies: Dysuria, Hematuria, Frequency Musculoskeletal: Denies: Myalgias, Arthralgias, Neck pain, Back pain, Swelling, Extremity Pain Skin: Reports: Wounds. Denies: Rash, Abscess, Abrasions, -, - Neurological: Denies: Headache, Weakness, Numbness Hematologic: Denies: Easy bruising, Easy bleeding Physical Exam Vital Signs/Narrative: Vital Signs Temp Pulse Resp BP Pulse Ox 03/04/19 16:32 98.1 F 97 16 94/60 99 Inital Vital Signs reviewed: Yes General: Well nourished, Well developed, No Acute Distress Head: Normocephalic, Atraumatic Eyes: Perrl, EOMI ENT: Moist mucous membranes, No rhinorrhea Neck: Supple, Nontender Cardiovascular: Regular rate, Regular rhythm, No murmurs Respiratory: No distress, CTA bilaterally, Chest nontender Abdomen: Soft, Nontender, Nondistended, Normal bowel sounds Back: Nontender, Normal Inspection Extremities: Nontender, No edema, - - Wound VAC on the right and left thigh wounds. There is no erythema, warmth, induration, fluctuance or tenderness to palpation. There is no inguinal lymphadenopathy right or left. Skin: Normal color, No rash Neurological: Alert, Oriented x3, Cranial nerves II-XII grossly intact, Normal Strength, Normal Sensation Psychological: Normal affect, Normal Mood Diagnostic/Tx/Re-eval Laboratory Results 03/04/19 03/04/19 03/04/19 17:25 17:25 17:57 WBC 14.6 H RBC 3.32 L Hgb 8.0 L Hct 24.9 L MCV 75.0 L MCH 24.1 L MCHC 32.1 RDW Std Deviation 49.8 H RDW Coeff of Lu 18.6 H Plt Count 157 MPV 9.2 Immature Gran % (Auto) 2.900 H Neut % (Auto) 86.7 H Lymph % (Auto) 5.6 L [place] % (Auto) 4.0 Eos % (Auto) 0.6 Baso % (Auto) 0.2 Absolute Neuts (auto) 12.7 H Absolute Lymphs (auto) 0.82 L Nucleated RBC % 0 Sodium 137 Potassium 3.9 Chloride 103 Carbon Dioxide 19.0 L Anion Gap 15 BUN 17 Creatinine 2.69 H Estim Creat Clear Calc 21.33 Est GFR (MDRD) Af Amer 25 L Est GFR (MDRD) Non-Af 21 L BUN/Creatinine Ratio 6.3 L Glucose 41 L* Calcium 8.3 L POC Glucose 39 L* 03/04/19 19:10 WBC RBC Hgb Hct MCV MCH MCHC RDW Std Deviation RDW Coeff of Lu Plt Count MPV Immature Gran % (Auto) Neut % (Auto) Lymph % (Auto) [place] % (Auto) Eos % (Auto) Baso % (Auto) Absolute Neuts (auto) Absolute Lymphs (auto) Nucleated RBC % Sodium Potassium Chloride Carbon Dioxide Anion Gap BUN Creatinine Estim Creat Clear Calc Est GFR (MDRD) Af Amer Est GFR (MDRD) Non-Af BUN/Creatinine Ratio Glucose Calcium POC Glucose 52 L White count is elevated. There is an ossific marker. She also is anemic. Creatinine is elevated and consistent with patient on dialysis. Case management was consulted and patient is agreeable to go to dialysis until [place] and palliative care. Chelo will contact nursing facility and make them aware. Dr. Cuevas called back and asked if her abdominal exam is benign because she is on perineal dialysis. He was informed that her abdomen is benign. And based on my expansion professional opinion patient's wounds do not appear infected. There is necrosis, which is not unexpected based on conversation with Dr. Reynaldo Cuevas - Medical Decision Making I was informed that the name of the wound care nurse is Jailyn. Acoustical Material Worker paged for me to speak to her at 1655. Will work patient up for infectious cause. Otherwise if there is no evidence of infection or any significant abnormality will have patient return to the nursing facility. With Dr. Cuevas at approximately 1830. He informed me that patient was refusing dialysis. He is aware that patient is not eating. The wound was described to him. He states that this time this would not require emergent surgery and he would be reluctant to operate on her because this may cause more problems. I informed him I am uncertain why she has an elevated white count. Patient is unable to pivot or support her weight. She request to be full code however she is refusing dialysis. She is refusing to eat. She is not following recommendations for her care. Because patient is refusing care case management was asked to see patient to determine if patient has the capacity to do such. Plan discharge back to residential with information regarding palliative, care and patient is willing to be cooperative. ED Disposition - Plan for ED Patient: Disposition: [facility] Diagnosis: Leukocytosis, Encounter for evaluation of wound, Anemia due to end stage renal disease, Generalized weakness Instructions: POST OP WOUND CHECK, General Referrals: Melvi Eastman MD [Primary Care Provider] - Erick Cuevas MD [STAFF PHYSICIAN] - 3-5 Days
[2019-03-04 17:42] LABS: Absolute Lymphocyte Count 0.82 X10^3/uL (0.83-4.51); Absolute Neutrophil Count 12.7 X10^3/uL (2.0-7.7); Basophil# 0.03 X10^3/uL; Basophil% 0.2 % (0-1); Eosinophil# 0.09 X10^3/uL; Eosinophils% 0.6 % (0-5); Hematocrit 24.9 % (37-47); Lymphocyte # 0.82 X10^3/ul (4.0); Lymphocyte % 5.6 % (19-41); Mean Corp Hgb Conc 32.1 g/dL (32-36); Mean Corpuscular Hgb 24.1 pg (27.0-32.0); Mean Platelet Vol. 9.2 fl (6.2-12.0); Monocyte# 0.58 X10^3/uL; NRBC Flagged by Analyzer 0 % (0-5); Neutrophil # 12.67 X10^3/uL (2.7-7.7); Neutrophil % 86.7 % (47-70); Platelet Count 157 K/mm3 (150-450); RBC Distribution Width CV 18.6 % (11.6-14.6); RBC Distribution Width SD 49.8 fl (35.1-43.9); Red Blood Count 3.32 M/mm3 (4.2-5.4); White Blood Count 14.6 K/mm3 (4.4-11.0)
[2019-03-04 17:54] LABS: Anion Gap 15 (5-15); BUN 17 mg/dL (7-18); BUN/Creat Ratio 6.3 RATIO (10-20); Calcium,Total 8.3 mg/dL (8.5-10.1); Chloride 103 mmol/L (98-107); Creatinine, Serum 2.69 mg/dL (0.55-1.02); EST Glomerular Filtration Rate 21 mL/min (>60); Est Glom Filt Rate - Afr Amer 25 mL/min (>60); Estimated Creatinine Clearance 21.33 ml/min; Glucose 41 mg/dL (74-106); Potassium 3.9 mmol/L (3.5-5.1); Sodium Level 137 mmol/L (136-145)
[2019-03-04 18:01] LABS: Bedside Glucose 39 mg/dL (70-110)
--- NOTE | 2019-03-04 18:26 | ED.RN ---
pt blood sugar is 39. pt did drink oj with sugar but is refusing food. pt then agreed to try something. pt states i am not surprised. my sugar is low as i don't eat. this rn called the medical center and talked to paty.paty rn states pt has been refusing food and refusing dialysis. states discussion this am regarding pt code status and pt requests to remain a full code. this rn discussed with pt that she is not taking in enough protein to assist these wounds in healing. order for case managment placed
--- NOTE | 2019-03-04 18:40 | CM.ED ---
SOCIAL WORK INFORMANT: DR. EDWARDS AND NURSEJAKY REASON FOR REFERRAL: D/C PLANNING UPDATED BY DR. EDWARDS AND NURSEJAKY PATIENT NOT EATING OR DRINKING, REFUSING DIALYSIS AND REMAINS FULL CODE. REQUESTING THIS WORKER SPEAK WITH PATIENT REGARDING D/C PLANNING AND PLAN OF CARE. MET WITH PATIENT AND MOTHER IN ROOM. INTRODUCED ROLE AND REASON FOR REFERRAL. PATIENT REPORTS HAS NOT BEEN ABLE TO EAT IN 3 WEEKS. PATIENT STATES EVERY TIME SHE EATS SHE GETS SICK AND IS NAUSEOUS. PATIENT STATES IS NOT REFUSING DIALYSIS, BUT HAS MISSED APPOINTMENTS FOR MENTAL REASONS. PATIENT STATES I JUST DON'T WANT TO BE THERE. PATIENT STATES SHE DOES PLAN TO GO TO DIALYSIS BECAUSE I HAVE TO DO IT. PATIENT BECAME TEARFUL, LOOKED AT HER MOTHER AND SAID I KNOW YOU AREN'T GOING TO WANT TO HEAR THIS. PATIENT THEN TOLD THIS WORKER SHE FEELS LIKE GIVING UP. MOTHER AND PATIENT BOTH CRYING AT THIS TIME. MUCH EMOTIONAL SUPPORT PROVIDED. PATIENT REPORTED FEELING TIRED D/T ALL HER MEDICAL ISSUES. DISCUSSED PALLIATIVE SERVICES. PATIENT WISHED TO HAVE A FEW MOMENTS ALONE WITH HER MOTHER. UPDATED DR. EDWARDS AND PATIENT'S NURSE ON THE ABOVE. PLAN: REMI CARTER, PROOF CLERK, COILER OPERATOR.
--- NOTE | 2019-03-04 18:40 | ED.RN ---
dr Cuevas called back and talked to Dr Cummins. agreed unsure what to do if pt continues to refuse to eat and do dialysis. Helio from case management in to talk with pt regarding options
[2019-03-04 19:15] LABS: Bedside Glucose 52 mg/dL (70-110)
--- NOTE | 2019-03-04 19:30 | CM.ED ---
SOCIAL WORK FOLLOW UP WITH PATIENT AND MOTHER IN ROOM. PATIENT STATES PLANS TO CONTINUE DIALYSIS [facility]OUGH [facility]. PATIENT WISHES TO DISCUSS HER PLANS WITH HER FATHER BEFORE MAKING ANY FURTHER DECISIONS. PATIENT AND MOTHER GIVEN INFORMATION ON PALLIATIVE SERVICES. PLAN TO RETURN TO [facility] FOR THE [facility]. INFORMED PATIENT THIS WORKER WILL UPDATED BORDER PATROL AGENT ON PATIENT'S PLANS. PATIENT IN AGREEMENT. CALL TO [facility], SPOKE WITH PARTNER INTEGRATION PLANNER, KAY. UPDATED ON THIS WORKER'S CONVERSATION WITH PATIENT. KAY TO FOLLOW UP. PLAN: RETURN TO [facility] RED ARAYA, GLOBAL PRESIDENT.
[2019-03-04 21:10] VITALS: BP 134/63
[2019-03-04 21:15] VITALS: BP 111/82
[2019-03-04 21:45] VITALS: BP 113/65
--- NOTE | 2019-03-04 21:51 | ED.RN ---
attempted to call report to [facility].
--- NOTE | 2019-03-04 21:53 | ED.RN ---
2nd attempt to call report to [facility].
--- NOTE | 2019-03-04 21:55 | ED.RN ---
3 attempts to call report.
== END 2019-03-04 22:06 | disposition skilled nursing facility (03) ==
PROVIDERS: Emergency Provider Emergency Medicine; Family Provider Internal Medicine; PCP Internal Medicine
DX: D72.829 Elevated white blood cell count, unspecified (principal); Z48.00 Encounter for change or removal of nonsurgical wound dressing; D63.1 Anemia in chronic kidney disease; R53.1 Weakness; S71.102A Unspecified open wound, left thigh, initial encounter; I96 Gangrene, not elsewhere classified; X58.XXXA Exposure to other specified factors, initial encounter; Y93.9 Activity, unspecified; Y92.9 Unspecified place or not applicable; I12.0 Hypertensive chronic kidney disease with stage 5 chronic kidney disease or end stage renal disease; N18.6 End stage renal disease; K31.84 Gastroparesis; I25.10 Atherosclerotic heart disease of native coronary artery without angina pectoris; E66.01 Morbid (severe) obesity due to excess calories; Z87.448 Personal history of other diseases of urinary system; Z79.82 Long term (current) use of aspirin; Z79.899 Other long term (current) drug therapy
CPT/HCPCS: 80048; 82962; 85025; 99285; J7030; A4216

== ENCOUNTER 2019-03-09 11:46 | Outpatient (RCR) | payer MEDICARE, MEDICAID, SELFPAY ==
[2019-03-09 11:53] VITALS: BP 103/69; PULSE 94; RESP 20; TEMP 36; BMI 40.2
--- NOTE | 2019-03-09 14:49 | HP.PCM_ITS ---
(1) Ulcer of right thigh Status: Chronic Qualifiers: Non-pressure ulcer stage: unspecified non-pressure ulcer stage Qualified Code(s): L97.119 - Non-pressure chronic ulcer of right thigh with unspecified severity Code(s): L97.119 - Non-pressure chronic ulcer of right thigh with unspecified severity (2) Ulcer of left thigh Status: Chronic Qualifiers: Non-pressure ulcer stage: unspecified non-pressure ulcer stage Qualified Code(s): L97.129 - Non-pressure chronic ulcer of left thigh with unspecified severity Code(s): L97.129 - Non-pressure chronic ulcer of left thigh with unspecified severity (3) Skin necrosis Status: Chronic Code(s): I96 - Gangrene, not elsewhere classified Comment: bilateral thighs (4) Type II diabetes mellitus Status: Chronic Qualifiers: Diabetes mellitus prison insulin use: without disabilities caregiver use Diabetes mellitus complication status: with other specified complication Qualified Code(s): E11.69 - Type 2 diabetes mellitus with other specified complication Code(s): E11.9 - Type 2 diabetes mellitus without complications (5) ESRD (end stage renal disease) Status: Chronic Code(s): N18.6 - End stage renal disease (6) Debility Status: Chronic Code(s): R53.81 - Other malaise (7) Morbid obesity Status: Chronic Code(s): E66.01 - Morbid (severe) obesity due to excess calories History of Present Illness Date of Service: 03/09/19 Chief Complaint: Ulcer to left proximal lateral thigh. Ulcer to right proximal anterolateral thigh. She also has necrosis surrounding both of these ulcers. History of Wound: Patient has a significant history of type 2 diabetes, ESRD. She been doing home peritoneal dialysis and was admitted on 02/12/2019 for nausea vomiting, diarrhea, and bilateral skin ulcerations of the inguinal region. On 02/16/2019 Dr. Cuevas to go to surgery for 1. Surgical preparation left proximal lateral thigh with incision and drainage and excisional debridement necrotizing soft tissue infection with skin necrosis (165 cm2). 2. Surgical preparation right proximal anterolateral thigh with incision and drainage and excisional debridement necrotizing soft tissue infection with skin necrosis (252 cm2). Operative wound cultures from bilateral thighs were negative for bacterial growth. Patient was discharged to [facility] on a wound VAC to 150 mmHg suction. Received a phone call from [facility] the end of last week discussing how she has necrotic tissue surrounding the ulcers. They are concerned it was necrotizing fasciitis, therefore she was sent to the ED and then was returned to [facility]. Do to the area of necrosis, will send her back to the ED for further evaluation. The wound VAC has not been working well by the way the wound appears. Past Medical History Past Medical History: Chronic Problems (Last Reviewed 02/12/19 @ 20:40 by Virgil Murray DO) Anemia in chronic illness (Chronic) Ulcer of right thigh (Chronic) Ulcer of left thigh (Chronic) Skin necrosis (Chronic) bilateral thighs Patient on peritoneal dialysis (Chronic) ESRD (end stage renal disease) (Chronic) Debility (Chronic) Gastroparesis (Chronic) Orthostatic hypotension (Chronic) Chronic renal failure, stage 4 (severe) (Chronic) Morbid obesity (Chronic) HTN (hypertension) (Chronic) Bilateral hydronephrosis (Chronic) Iron deficiency anemia (Chronic) Type II diabetes mellitus (Chronic) Coronary artery disease (Chronic) Chronic low back pain (Chronic) Hydroureter (Chronic) Bladder outlet obstruction (Chronic) Surgical History: - - PCI, bilateral ureteral stent placements and removal, AVF creation, tunnel intervention, port placement. Allergies/Adverse Reactions: Allergies ciprofloxacin [From Cipro] Adverse Reaction (Verified 03/09/19 13:53) Vomiting contrast dye Allergy (Severe, Uncoded 03/09/19 13:53) Anaphylaxis Home Medications: Ambulatory Orders Medication Instructions Recorded Ergocalciferol [Vitamin D] 50,000 unit PO WE 04/18/17 Aspirin E.C. [Ecotrin] 81 mg PO DAILY@0800 07/15/18 Bupropion HCl [Bupropion Xl] 300 mg PO DAILY 09/22/18 Ondansetron [Zofran Odt] 4 mg PO Q8H PRN PRN #10 tab 02/12/19 Oxycodone HCl/Acetaminophen 1 ea PO Q6H PRN PRN 02/12/19 [Percocet 5-325 mg Tablet] Docusate Sodium [Colace] 100 mg PO BID cap 02/23/19 Nepro with Carbsteady [Nepro Carb 120 ml PO TIDCM liquid 02/23/19 Steady] Polyethylene Glycol 3350 [Miralax] 17 gm PO DAILY packet 02/23/19 Furosemide 40 mg PO DAILY 02/25/19 Nortriptyline HCl [Pamelor] 25 mg PO QHS #0 02/27/19 Pregabalin [Lyrica] 50 mg PO DAILY #0 02/27/19 Nystatin [Nystop] 60 gm TP BID 03/09/19 Venlafaxine HCl [Venlafaxine HCl 75 mg PO DAILY 03/09/19 ER] - Family History Maternal Unknown - Patient was adopted and she does not know her family of origin to be able to provide any family medical history. Paternal Unknown - Patient was adopted and she does not know her family of origin to be able to provide any family medical history. Smoking Status: Never smoker Review of Systems Constitutional: Reports: Malaise, Fatigue. Denies: Fever Eyes: Denies: Pain, Vision Change HEENT: Denies: Difficulty Hearing, Difficulty Swallowing, Sinus Congestion Cardiovascular: Denies: Chest Pain, Palpitations Respiratory: Denies: Cough, Shortness of Breath Gastrointestinal: Denies: Diarrhea, Nausea, Vomiting Musculoskeletal: Reports: Leg Pain Skin: Reports: Wounds - Left and right proximal lateral thighs Endocrine: Reports: Heat/ Cold Intolerance - Physical Exam Vital Signs Temp Pulse Resp BP 96.8 F L 94 20 H 103/69 03/09/19 11:53 03/09/19 11:53 03/09/19 11:53 03/09/19 11:53 General: Alert, Oriented x3, Cooperative HEENT: Atraumatic Oral: Moist Mucosa Lungs: Normal air movement Cardiovascular: Regular rate Abdomen: Soft, Obese Extremities: Capillary Refill Less than 3 Seconds Skin: Ulcer/ Wound - ulcers of right and left proximal lateral thighs Wound Measurements and Assessment WC - Nurse 1 - General Ulcer Measurement Start: 03/09/19 11:53 Freq: Status: Active Protocol: Activity Type Activity Date Activity User E-Sign Co-Sign Detail Recorded Client Recorded Date Recorded By Document 03/09/19 11:53 [facility] [id number] 03/09/19 12:22 [facility] 03/09/19 11:53 Wound Center Nurse 1 [Ulcer Assessment] #4- L OUTER ABDOMINAL FOLD -Combined with other wound No -Current Size (cm) - Length 4 -Current Size (cm) - Width 2.4 -Current Size (cm) - Depth 0.1 -Total Square Cm 9.6 -Date of Last Picture (Recall this 03/09/19 field) -Photo Taken Yes -Epithelialization None Present -Tunneling No -Undermining/Tunneling No -Circular Undermining No -Exudate Amt Medium -Exudate Type Serosanguineous -Wound Margin Distinct, Outline Attached -Granulation Amt None Present (0 %) -Slough/Fibrin Yes -Necrosis Amt Large (67-100%) -Necrotic Tissue Type Adherent Slough -Texture (Ryann-wound Skin Appearance) Assessed, Scarring -Moisture (Ryann-wound Skin Appearance Assessed ) -Color (Ryann-wound Skin Appearance) Assessed, Erythema -Temperature (Ryann-wound Skin No Abnormality Appearance) (Pt Warm) -Tenderness on Palpation (Ryann-wound Yes Skin Appearance) -Ulcer Cleansing SOAPY WATER -Foul Odor after Cleansing No -Anesthetic Used 4% Lidocaine Solution #3- R OUTER ABDOMINAL FOLD -Combined with other wound No -Current Size (cm) - Length 2 -Current Size (cm) - Width 8.8 -Current Size (cm) - Depth 0.2 -Total Square Cm 17.6 -Date of Last Picture (Recall this 03/09/19 field) -Photo Taken Yes -Epithelialization None Present -Tunneling No -Undermining/Tunneling No -Circular Undermining No -Exudate Amt Medium -Exudate Type Serosanguineous -Wound Margin Distinct, Outline Attached -Granulation Amt Small (1-33%) -Granulation Quality Red -Slough/Fibrin Yes -Necrosis Amt Large (67-100%) -Necrotic Tissue Type Adherent Slough -Texture (Ryann-wound Skin Appearance) Assessed, Scarring -Moisture (Ryann-wound Skin Appearance Assessed,Dry/ ) Scaly -Color (Ryann-wound Skin Appearance) Assessed -Temperature (Ryann-wound Skin No Abnormality Appearance) (Pt Warm) -Tenderness on Palpation (Ryann-wound No Skin Appearance) -Ulcer Cleansing Rinsed/ Irrigated with Saline -Foul Odor after Cleansing No -Anesthetic Used 4% Lidocaine Solution #2- R THIGH -Combined with other wound No -Current Size (cm) - Length 8.2 -Current Size (cm) - Width 25 -Current Size (cm) - Depth 6 -Total Square Cm 205.0 -Date of Last Picture (Recall this 03/09/19 field) -Photo Taken Yes -Epithelialization None Present -Tunneling No -Undermining/Tunneling Yes -Undermining/Tunneling Starts (O' 3 clock) -Undermining/Tunneling Ends (O'clock) 7 -Maximum Distance (cm) 2.7 -Circular Undermining No -Exudate Amt Large -Exudate Type Serosanguineous -Wound Margin Distinct, Outline Attached -Granulation Amt Small (1-33%) -Granulation Quality Red -Slough/Fibrin Yes -Necrosis Amt Large (67-100%) -Necrotic Tissue Type Adherent Slough -Texture (Ryann-wound Skin Appearance) Assessed, Scarring -Moisture (Ryann-wound Skin Appearance Assessed,Dry/ ) Scaly -Color (Ryann-wound Skin Appearance) Assessed, Erythema -Temperature (Ryann-wound Skin No Abnormality Appearance) (Pt Warm) -Tenderness on Palpation (Ryann-wound No Skin Appearance) -Ulcer Cleansing SOAPY WATER -Foul Odor after Cleansing No -Anesthetic Used 4% Lidocaine Solution #1- L THIGH -Combined with other wound No -Current Size (cm) - Length 16.3 -Current Size (cm) - Width 5.3 -Current Size (cm) - Depth 4 -Total Square Cm 86.39 -Date of Last Picture (Recall this 03/09/19 field) -Photo Taken Yes -Epithelialization None Present -Tunneling No -Undermining/Tunneling Yes -Undermining/Tunneling Starts (O' 7 clock) -Undermining/Tunneling Ends (O'clock) 11 -Maximum Distance (cm) 4 -Circular Undermining No -Exudate Amt Large -Exudate Type Serosanguineous -Wound Margin Distinct, Outline Attached -Granulation Amt Small (1-33%) -Granulation Quality Red -Slough/Fibrin Yes -Necrosis Amt Large (67-100%) -Necrotic Tissue Type Eschar -Texture (Ryann-wound Skin Appearance) Assessed, Scarring -Moisture (Ryann-wound Skin Appearance Assessed ) -Color (Ryann-wound Skin Appearance) Assessed, Erythema -Temperature (Ryann-wound Skin No Abnormality Appearance) (Pt Warm) -Tenderness on Palpation (Ryann-wound Yes Skin Appearance) -Ulcer Cleansing SOAPY WATER -Foul Odor after Cleansing No -Anesthetic Used 4% Lidocaine Solution Musculoskeletal: No Tenderness to Palpation of Joints or Extremities Neurological: Neuro grossly intact Psych/Mental Status: Normal Affect, Appropriate Debridement Note No debridement was completed today Assessment/Plan Active Problems (Last Reviewed 02/12/19 @ 20:40 by Virgil Murray DO) Anemia in chronic illness (Chronic) Ulcer of right thigh (Chronic) Ulcer of left thigh (Chronic) Problem with dialysis access (Acute) Chronic renal failure, stage 4 (severe) (Chronic) Morbid obesity (Chronic) Type II diabetes mellitus (Chronic) Assessment: 1. Ulcer of right thigh. 2. Ulcer of left thigh. 3. Chronic renal failure, stage 4 - on dialysis. 4. Type II diabetes mellitus. 5. Morbid obesity. Plan: Due to the severity of the necrosis and bilateral thigh wounds will refer her to the ED for further evaluation with possible surgical debridement. Code Visit Office Visits / Consults: [id number] OV [id number] Est
== END 2019-03-31 23:59 ==
LOC: WC 11:46
PROVIDERS: Family Provider Internal Medicine; PCP Internal Medicine; Visit Provider Surgery
DX: E11.622 Type 2 diabetes mellitus with other skin ulcer (principal); E11.22 Type 2 diabetes mellitus with diabetic chronic kidney disease; N18.6 End stage renal disease; E66.01 Morbid (severe) obesity due to excess calories; I12.0 Hypertensive chronic kidney disease with stage 5 chronic kidney disease or end stage renal disease; I25.10 Atherosclerotic heart disease of native coronary artery without angina pectoris; Z99.2 Dependence on renal dialysis; D63.8 Anemia in other chronic diseases classified elsewhere; Z79.899 Other long term (current) drug therapy; L97.119 Non-pressure chronic ulcer of right thigh with unspecified severity; L97.129 Non-pressure chronic ulcer of left thigh with unspecified severity
CPT/HCPCS: 99215; G0463

== ENCOUNTER 2019-03-09 13:37 | Inpatient (IN) | payer MEDICARE, MEDICAID, SELFPAY ==
[2019-03-09] VITALS (7 sets, daily range): BP systolic 96–126; BP diastolic 57–82; PULSE 88–97; RESP 12–18; TEMP 36.5–37; O2SAT 92–100; BMI 40.2; BMI 47.0; BMI 43.5
[2019-03-09] MEDS: Morphine 4 MG/ML Syringe IV (14:32)
[2019-03-09] MEDS: 0.9% Normal Saline 1,000 ML 125 ML IV (14:32)
[2019-03-09] MEDS: Ondansetron 4 MG/2 ML Vial IV (14:32)
[2019-03-09 14:49] LABS: Absolute Lymphocyte Count 0.64 X10^3/uL (0.83-4.51); Absolute Neutrophil Count 10.4 X10^3/uL (2.0-7.7); Basophil# 0.02 X10^3/uL; Basophil% 0.2 % (0-1); Eosinophil# 0.08 X10^3/uL; Eosinophils% 0.7 % (0-5); Hematocrit 23.9 % (37-47); Hemoglobin 7.5 g/dL (12.0-15.0); Lymphocyte # 0.64 X10^3/ul (4.0); Lymphocyte % 5.3 % (19-41); Mean Corp Hgb Conc 31.4 g/dL (32-36); Mean Corpuscular Volume 76.4 fL (81-99); Mean Platelet Vol. 9.3 fl (6.2-12.0); Monocyte# 0.74 X10^3/uL; Monocyte% 6.1 % (0-10); NRBC Flagged by Analyzer 0 % (0-5); Neutrophil # 10.42 X10^3/uL (2.7-7.7); Platelet Count 163 K/mm3 (150-450); RBC Distribution Width SD 52.5 fl (35.1-43.9); Red Blood Count 3.13 M/mm3 (4.2-5.4); White Blood Count 12.1 K/mm3 (4.4-11.0)
--- NOTE | 2019-03-09 14:51 | ED.DCSUM_ITS ---
History of Present Illness Chief Complaint: Wound Informant: Patient, Significant Other Onset: Month(s) Narrative: Worsening right and left thigh wounds debrided in the operating room February [address] 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 business analyst ecommerce she has end-stage renal disease she has diabetes multiple other medical conditions and problems she developed black lesions on her right and left anterior thighs initially thought to be related to unspecified condition possibly calcium deposits related to dialysis this condition would not improve, she then underwent surgery to have these areas resected and she was found to have what she describes as necrotic tissue and sin ce that time she has had open wounds treated at the nursing center seen The other day in the emergency department discharge back to nursing center to continue her wound care Followed up today in the wound care center the working center doctors were concerned about the margins of the wounds as they were more black and necrotic they are also concerned about some drainage from the right greater than the left wound they per business analyst ecommerce spoke with Dr. steel who asked that she become to the hospital for admission and further management She has been eating and drinking she is had no chest or abdominal pain, she has been getting her dialysis as scheduled Past Medical History - Allergies and Home Meds Allergies/Adverse Reactions: Allergies ciprofloxacin [From Cipro] Adverse Reaction (Verified 03/09/19 13:53) Vomiting contrast dye Allergy (Severe, Uncoded 03/09/19 13:53) Anaphylaxis Primary Care Physician: Melvi Eastman MD [Primary Care Provider] - Past Medical History: - - End-stage renal disease on dialysis diabetes wounds to the body as above Surgical History: - - PCI, bilateral ureteral stent placements and removal, AVF creation, tunnel intervention, port placement. Smoking Status: Never smoker - Family History Maternal Family History: Reports: Unknown - Patient was adopted and she does not know her family of origin to be able to provide any family medical history. Paternal Family History: Reports: Unknown - Patient was adopted and she does not know her family of origin to be able to provide any family medical history. Review of Systems General: Denies: Chills, Fever, Sweats Eyes: Denies: Visual changes - bilaterally, Diplopia ENT: Denies: Rhinorrhea, Sore throat Cardiovascular: Denies: Chest pain, Palpitations Respiratory: Denies: Dyspnea, Cough, Dyspnea on exertion Gastrointestinal: Denies: Abdominal pain, Nausea, Vomiting, Diarrhea, Melena, Hematochezia Genitourinary: Denies: Dysuria, Hematuria, Frequency Musculoskeletal: Denies: Back pain, Extremity Pain Skin: Reports: Wounds. Denies: Rash Neurological: Denies: Headache, Weakness, Numbness Physical Exam Vital Signs/Narrative: Vital Signs Temp Pulse Resp BP Pulse Ox 03/09/19 14:30 98.6 F 92 12 114/76 98 03/09/19 13:38 98.6 F 97 14 96/80 96 General: Well nourished, Well developed, No Acute Distress Head: Normocephalic, Atraumatic Eyes: Perrl, EOMI ENT: Moist mucous membranes, No rhinorrhea Neck: Supple, Nontender Cardiovascular: Regular rate, Regular rhythm, No murmurs Respiratory: No distress, CTA bilaterally, Chest nontender Abdomen: Soft, Nontender, Nondistended, Normal bowel sounds Back: Nontender, Normal Inspection Extremities: No edema, Tenderness, - - To both anterior thighs there are open large wounds representing the debridement, the margins of the wounds are black the right wound has a slight odor to it and some drainage there is no crepitus or subcu air also along the margin of her right anterior abdominal wall pannus there is a area of thick skin that is black and discolored it is really not tender and she indicates this really has been there for some time the physicians are aware of her and they are watching it, she has a right chest dialysis catheter that is working well by her history Skin: Normal color, No rash Neurological: Alert, Oriented x3, Cranial nerves II-XII grossly intact, Normal Strength, Normal Sensation Psychological: Normal affect, Normal Mood Diagnostic/Tx/Re-eval - Medical Decision Making Given all of the above and reports of caretakers that admission is the plan screening labs are obtained, we did page plastic surgery we did page the hospitalist will arrange for admission Admit stable Impression final Bilateral postsurgical wounds with infection, end-stage renal disease diabetes ED Disposition - Plan for ED Patient: Diagnosis: Ulcer of left thigh, Ulcer of right thigh, Morbid obesity, Type II diabetes mellitus, Chronic renal failure, stage 4 (severe) Referrals: Melvi Eastman MD [Primary Care Provider] -
[2019-03-09 15:02] LABS: Anion Gap 12 (5-15); BUN 30 mg/dL (7-18); BUN/Creat Ratio 6.9 RATIO (10-20); Calcium,Total 8.5 mg/dL (8.5-10.1); Chloride 101 mmol/L (98-107); Creatinine, Serum 4.33 mg/dL (0.55-1.02); EST Glomerular Filtration Rate 12 mL/min (>60); Est Glom Filt Rate - Afr Amer 14 mL/min (>60); Estimated Creatinine Clearance 13.25 ml/min; Glucose 89 mg/dL (74-106); Potassium 4.4 mmol/L (3.5-5.1); Sodium Level 139 mmol/L (136-145)
--- NOTE | 2019-03-09 16:50 | HP.PCM_ITS ---
Problem List (1) Ulcer of right thigh Status: Chronic Qualifiers: Non-pressure ulcer stage: unspecified non-pressure ulcer stage Qualified Code(s): L97.119 - Non-pressure chronic ulcer of right thigh with unspecified severity (2) Ulcer of left thigh Status: Chronic Qualifiers: Non-pressure ulcer stage: unspecified non-pressure ulcer stage Qualified Code(s): L97.129 - Non-pressure chronic ulcer of left thigh with unspecified severity (3) Skin necrosis Status: Chronic Comment: bilateral thighs (4) ESRD (end stage renal disease) Status: Chronic (5) Gastroparesis Status: Chronic (6) Morbid obesity Status: Chronic (7) HTN (hypertension) Status: Chronic Qualifiers: Hypertension type: essential hypertension Qualified Code(s): I10 - Essential (primary) hypertension (8) Type II diabetes mellitus Status: Chronic Qualifiers: Diabetes mellitus local intermodal truck driver insulin use: without local intermodal truck driver use Diabetes mellitus complication status: with other specified complication Qualified Code(s): E11.69 - Type 2 diabetes mellitus with other specified complication History of Present Illness Date of Admission: 03/09/19 Chief Complaint: Worsening bilateral leg ulcers The patient is a 43 year old F with past medical history of ESRD on hemodialysis, bilateral thigh skin necrosis, status post debridement, pathology was negative for calciphylaxis was recently admitted and discharged with acute metabolic/toxic encephalopathy. Patient was [facility] to [facility] and has had wound VAC placed except for today when she had a follow-up with the wound center today. She was asked to come to the emergency department from the wound center. The wound center reportedly discussed patient's wound condition with Dr. Cuevas. Patient denied any fever or chills or dizziness or palpitation. She has been having dialysis; reported he has missed only one dialysis session. Vitals in the ED showed temperature 97.7 F, heart rate 90, blood pressure 126/63, respiratory rate 18, SPO2 is 92% on room air. BC count is 12.1, hemoglobin 7.5, which is close to her baseline, platelet count 163, sodium is 139, potassium 4.4, chloride 101, bicarbonate 26, BUN 30, creatinine 4.33. Past Medical History Past Medical History (Chronic Problems): Chronic Problems (Last Reviewed 02/12/19 @ 20:40 by Virgil Murray DO) Ulcer of right thigh (Chronic) Ulcer of left thigh (Chronic) Skin necrosis (Chronic) bilateral thighs Patient on peritoneal dialysis (Chronic) ESRD (end stage renal disease) (Chronic) Debility (Chronic) Gastroparesis (Chronic) Orthostatic hypotension (Chronic) Chronic renal failure, stage 4 (severe) (Chronic) Morbid obesity (Chronic) HTN (hypertension) (Chronic) Bilateral hydronephrosis (Chronic) Iron deficiency anemia (Chronic) Type II diabetes mellitus (Chronic) Coronary artery disease (Chronic) Chronic low back pain (Chronic) Hydroureter (Chronic) Bladder outlet obstruction (Chronic) Medical History: Medical History (Last Reviewed 02/12/19 @ 20:40 by Virgil Murray DO) Chronic renal failure, stage 4 (severe) (Chronic) N18.4 Anemia D64.9 Anxiety and depression F41.8 Back problem M53.9 Carpal tunnel syndrome G56.00 Diabetes type 2, controlled E11.9 H/O nephrolithotomy with removal of calculi Z98.890, Z87.442 H/O transfusion of whole blood Z92.89 Headache R51 Heart disease I51.9 Hives L50.9 Kidney disease N28.9 Kidney failure N19 Kidney stone N20.0 Neuropathy G62.9 Recurrent infections B99.9 Seasonal allergies J30.2 UTI (urinary tract infection) N39.0 Vitamin deficiency E56.9 HTN (hypertension) I10 Allergies ciprofloxacin [From Cipro] Adverse Reaction (Verified 03/09/19 13:53) Vomiting contrast dye Allergy (Severe, Uncoded 03/09/19 13:53) Anaphylaxis Home Medications: Ambulatory Orders Medication Instructions Recorded Ergocalciferol [Vitamin D] 50,000 unit PO WE 04/18/17 Aspirin E.C. [Ecotrin] 81 mg PO DAILY@0800 07/15/18 Bupropion HCl [Bupropion Xl] 300 mg PO DAILY 09/22/18 Ondansetron [Zofran Odt] 4 mg PO Q8H PRN PRN #10 tab 02/12/19 Oxycodone HCl/Acetaminophen 1 ea PO Q6H PRN PRN 02/12/19 [Percocet 5-325 mg Tablet] Docusate Sodium [Colace] 100 mg PO BID cap 02/23/19 Nepro with Carbsteady [Nepro Carb 120 ml PO TIDCM liquid 02/23/19 Steady] Polyethylene Glycol 3350 [Miralax] 17 gm PO DAILY packet 02/23/19 Furosemide 40 mg PO DAILY 02/25/19 Nortriptyline HCl [Pamelor] 25 mg PO QHS #0 02/27/19 Pregabalin [Lyrica] 50 mg PO DAILY #0 02/27/19 Nystatin [Nystop] 60 gm TP BID 03/09/19 Venlafaxine HCl [Venlafaxine HCl 75 mg PO DAILY 03/09/19 ER] Surgical History: Surgical History (Last Reviewed 02/12/19 @ 20:40 by Virgil Murray DO) H/O heart artery stent Z95.5 History of carpal tunnel surgery Z92.89 Presence of surgically created arteriovenous shunt for hemodialysis Z99.2 Surgical History: - - PCI, bilateral ureteral stent placements and removal, AVF creation, tunnel intervention, port placement. 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 Paternal History Items: Unknown - Patient was adopted and she does not know her family of origin to be able to provide any family medical history. Review of Systems Constitutional: Reports: Anorexia, Weakness, Fatigue. Denies: Chills, Fever, Night Sweats, Malaise, Weight Change Eyes: Denies: Blurred vision, Cataracts, Conjunctivae Inflammation, Pain, Redness HEENT: Denies: Difficulty Hearing, Difficulty Swallowing, Head Aches, Hearing Changes, Sinus Congestion, Sinus Drainage Cardiovascular: Denies: Chest Pain, Claudication, Orthopnea, Palpitations, Paroxysmal Noc. Dyspnea Respiratory: Denies: Cough, Hemoptysis, Shortness of breath at rest, Shortness of breath upon exertion, Sputum production Gastrointestinal: Denies: Abdominal Pain, Constipation, Hematemesis, Hematochezia, Nausea, Vomiting Genitourinary: Denies: Dysuria, Frequency, Incontinence Musculoskeletal: Denies: Joint Pain, Joint stiffness, Joint swelling, Joint Tenderness Skin: Denies: Rash, Wounds Neurological: Denies: Difficulty swallowing, Focal weakness, Numbness, Tingling Psychiatric: Denies: Anxiety, Depression, Homicidal Ideations, Suicidal Ideations Hematologic/ Lymphatic: Denies: Easy Bruising, Easy Bleeding VTE Information - Inpt Only VTE Present on Admission: No VTE Pharm Prophylaxis ordered?: Yes - Physical Exam Vitals/I&O's: Vital Signs Temp Pulse Resp BP Pulse Ox 98 F 91 16 117/57 L 98 03/09/19 16:00 03/09/19 16:00 03/09/19 16:00 03/09/19 16:00 03/09/19 16:00 Oxygen Delivery Method Room Air Weight: 116.6 kg Body Mass Index (BMI) 47.0 Finger Stick Blood Glucose 53 General: Alert, Oriented x3, Cooperative, No apparent distress, - - obese HEENT: Atraumatic, PERRLA, EOMI, Normocephalic Oral: Dry Mucosa Neck: Supple Lungs: Clear to auscultation, Normal air movement Cardiovascular: Regular rate, Regular Rhythm, Normal S1, Normal S2, No murmurs Abdomen: Bowel Sounds Present, Soft, Non Tender, Non-Distended, No Hepato- splenomegaly Extremities: No edema, - - large bilateral thigh ulcers, necrosis of edges of ulcer, slough at wound, skin necrosis of anterior abdominal wall/flanks, more in the right Skin: No rashes, No breakdown Musculoskeletal: No Tenderness to Palpation of Joints or Extremities Lymphatic: No Cervical, Supraclavicular, or Inguinal Adenopathy Neurological: Cranial nerves II-XII grossly intact, Neuro grossly intact Psych/Mental Status: Normal Affect, Appropriate Laboratory Results 03/09/19 14:40: WBC 12.1 H, RBC 3.13 L, Hgb 7.5 L, Hct 23.9 L, MCV 76.4 L, MCH 24.0 L, MCHC 31.4 L, RDW Std Deviation 52.5 H, RDW Coeff of Lu 19.0 H, Plt Count 163, MPV 9.3, Immature Gran % (Auto) 1.700 H, Neut % (Auto) 86.0 H, Lymph % (Auto) 5.3 L, [place] % (Auto) 6.1, Eos % (Auto) 0.7, Baso % (Auto) 0.2, Absolute Neuts (auto) 10.4 H, Absolute Lymphs (auto) 0.64 L, Nucleated RBC % 0 03/09/19 14:40: Sodium 139, Potassium 4.4, Chloride 101, Carbon Dioxide 26.0, Anion Gap 12, BUN 30 H, Creatinine 4.33 H, Estim Creat Clear Calc 13.25, Est GFR (MDRD) Af Amer 14 L, Est GFR (MDRD) Non-Af 12 L, BUN/Creatinine Ratio 6.9 L, Glucose 89, Calcium 8.5 03/09/19 14:40: Lactic Acid 1.0 Current Medications Sodium Chloride () 1,000 mls @ 125 mls/hr IV .Q8H MAGGIE Last Admin: 03/09/19 14:32 Dose: 125 mls/hr Documented by: Sodium Chloride () 10 - 40 ml IV UD PRN PRN Reason: SALINE FLUSH Assessment/Plan All Active Problems (Last Reviewed 02/12/19 @ 20:40 by Virgil Murray DO) Encephalopathy acute (Acute) Necrotizing soft tissue infection (Acute) Open wound of both lower extremities with complication (Acute) Calciphylaxis (Acute) Lower extremity weakness (Acute) Generalized weakness (Acute) Syncope (Acute) 43 year old F with past medical history of ESRD on hemodialysis, bilateral thigh skin necrosis, status post debridement, pathology was negative for calcip hylaxis was recently admitted and discharged with acute metabolic/toxic encephalopathy. 1. Bilateral thigh ulcers, possible associated skin necrosis of wound margins History of wound debridement on 02/16/[address] of [address] Cuevas and wound RN consulted for further wound recommendations 2. ESRD on HD via RIJ tunneled HD catheter Nephrology consulted for maintenance dialysis 3. Type II DM, not on medications, continue on blood glucose checks with insulin sliding scale 4. Gastroparesis, will continue Zofran as needed 5. DVT PPx- Heparin SC Code Visit OBSV E&M: [id number] Initial observation care L2
[2019-03-09] MEDS: Docusate Sodium 100 MG Capsule PO (22:33)
[2019-03-09] MEDS: Nortriptyline 25 MG Capsule PO (22:33)
[2019-03-09 22:56] LABS: Bedside Glucose 73 mg/dL (70-110)
[2019-03-10] VITALS (11 sets, daily range): BP systolic 74–140; BP diastolic 32–79; PULSE 85–101; RESP 12–18; TEMP 36.5–37.4; O2SAT 95–100; BMI 43.7
--- NOTE | 2019-03-10 05:00 | EKG12_ITS ---
Test Reason : Blood Pressure : / mmHG Vent. Rate : 088 BPM Atrial Rate : 088 BPM P-R Int : 152 ms QRS Dur : 104 ms QT Int : 392 ms P-R-T Axes : 043 011 072 degrees QTc Int : 474 ms Normal sinus rhythm Low voltage QRS (Limb Leads) Poor R wave progression Confirmed by DELORIS VINES, BETSY ([id number]), video editor TATIANA ZHANG ([id number]) on 03/18/2019 1:10:20 PM Referred By: Jaimee Horner Confirmed By:BETSY PUENTES MD
[2019-03-10 05:34] LABS: Hematocrit 27.4 % (37-47); Hemoglobin 8.3 g/dL (12.0-15.0); Mean Corp Hgb Conc 30.3 g/dL (32-36); Mean Corpuscular Hgb 23.5 pg (27.0-32.0); Mean Corpuscular Volume 77.6 fL (81-99); Mean Platelet Vol. 9.4 fl (6.2-12.0); Platelet Count 157 K/mm3 (150-450); RBC Distribution Width CV 18.8 % (11.6-14.6); Red Blood Count 3.53 M/mm3 (4.2-5.4); White Blood Count 13.1 K/mm3 (4.4-11.0)
[2019-03-10 05:36] LABS: International Normalized Ratio 1.5; Prothrombin Time (Protime)PT. 17.6 SECONDS (11.7-14.9)
[2019-03-10 05:37] LABS: Partial Thromboplast Time 41.1 Seconds (24.1-36.2)
[2019-03-10 05:48] LABS: Anion Gap 13 (5-15); BUN 32 mg/dL (7-18); BUN/Creat Ratio 6.9 RATIO (10-20); Calcium,Total 8.2 mg/dL (8.5-10.1); Chloride 101 mmol/L (98-107); Creatinine, Serum 4.65 mg/dL (0.55-1.02); EST Glomerular Filtration Rate 11 mL/min (>60); Est Glom Filt Rate - Afr Amer 13 mL/min (>60); Estimated Creatinine Clearance 12.34 ml/min; Glucose 71 mg/dL (74-106); Potassium 4.7 mmol/L (3.5-5.1); Sodium Level 137 mmol/L (136-145)
[2019-03-10 07:20] LABS: Bedside Glucose 84 mg/dL (70-110)
--- NOTE | 2019-03-10 07:30 | SOF_PTH ---
PATIENT: THAO HUDSON LOC: [facility] U#:[id number] AGE/SX: 43/F ROOM: MS321 RE03/10/[address]: Dr. Eli Rasmussen MD : 1975 BED: 1 DIS: 03/17/2019 SPEC #: [id number] RECD: 03/13/19 14:18 STATUS: ASHA AUBREE #: [id number] MIGUEL: 03/10/19 07:[address]: Mohinder Patricia DEPT: SURGICAL PATHOLOGY RECD BY: Shayne Larkin ENTERED: 03/13/19 14:27 SP TYPE: SOFT TISS OTHR DR: MD Dr. Betty Nguyễn DO Dr. Eric Jopperi, DO Dr. James A Slaby, MD Dr. Liza D Talampas, MD Dr. Robert Leininger, MD Tissues: A - Soft tissues, NOS B - Soft tissues, NOS Procedures: Surgery Specimen Level IV HEADER OPERATION: I & D left proximal lateral thigh and excisional debridement PRE-OP DIAGNOSIS: Necrotic wounds bilateral thighs TISSUE SUBMITTED: A - Soft tissue right thigh, B - Soft tissue left thigh MICROSCOPIC DIAGNOSIS A. Skin and soft tissue of right thigh, excision: Ulceration with associated acute and chronic inflammation, bacterial colonies and abscess formation. B. Skin and soft tissue of left thigh, excision: Ulceration with associated acute and chronic inflammation, bacterial colonies and abscess formation. AM:lyric 03/16/19 MICROSCOPIC DESCRIPTION Slides are reviewed. GROSS DESCRIPTION A - Received in fixative is one container labeled with the patient's name and designated soft tissue right thigh. The specimen consists of a ring-shaped piece of skin with underlying tissue measuring 27 x 24 x 4 cm. The central defect measures up to 19 cm. The width of the ring measures 1.5 to 9 cm. The skin surface shows extensive ulceration and brownish-black discoloration. Also received are two pieces of yellow adipose tissue with focal area raised discoloration measuring in aggregate 8 x 7 x 1.5 cm. No mass lesion is identified. Belt Conveyor Drier sections are submitted in three cassettes. B - Received in fixative is one container labeled with the patient's name and designated soft tissue left thigh. The specimen consists of a ring-shaped piece of fontenot-brown skin measuring 23 x 17.5 cm and up to 4.5 cm in thickness. The ring-shaped defect measures 4 cm in greatest dimension. The width of the ring measures 1.5 to 8 cm. The skin surface shows extensive ulceration and brownish-black discoloration. No mass lesion is identified. Belt Conveyor Drier sections are submitted in three cassettes. / REAGAN:lyric 03/13/19 TC:2 CPT: 80443 x2
--- NOTE | 2019-03-10 08:10 | NURSING ---
wound photo: left anterolateral thigh
--- NOTE | 2019-03-10 08:11 | NURSING ---
wound photo: right anterolateral thigh
--- NOTE | 2019-03-10 08:14 | NURSING ---
wound photo: right abdominal fold
--- NOTE | 2019-03-10 08:14 | NURSING ---
wound photo: left abdominal fold
[2019-03-10 08:51] LABS: Hemoglobin A1c 5.6 % (4.2-6.3)
--- NOTE | 2019-03-10 09:39 | CON.PCM_ITS ---
Consultation - Renal 03/10/19 PCP/ Referring MD: Requesting physician: Primary care physician: Melvi Eastman MD Reason for Consultation:: ESRD HD TTS - History of Present Illness History of Present Illness: The patient is a 43 year old debilitated, morbidly obese F with past medical history for ESRD on hemodialysis TTS, seen on dialysis today. she is admitted for bilateral thigh skin necrosis/infection needing further debridement. She is s/p debridement, negative for calciphylaxis last month. She has a hx of acute metabolic/toxic encephalopathy from narcotics but MS stable today. She has a history of noncompliance with hemodialysis where she signs off early after 1.5hrs on treatment due to pain. She has a PD catheter that has not been functioning, not draining fluid since last hospitalization. Patient was discharged to the [facility] facility with a wound VAC placed. She has been coming to dialysis center with drsg falling off. She is full assist, unable to transfer requiring maryann lift. Patient denied any fever or chills or dizziness or palpitation. - Allergies Allergies: Allergies ciprofloxacin [From Cipro] Adverse Reaction (Verified 03/09/19 13:53) Vomiting contrast dye Allergy (Severe, Uncoded 03/09/19 13:53) Anaphylaxis - Current Medications Current Medications: Current Medications Bupropion HCl (Wellbutrin Xl) 300 mg PO DAILY [facility] Dextrose (D50w Syringe) 0 gm IV X1 PRN; Protocol PRN Reason: Hypoglycemia Docusate Sodium (Colace) 100 mg PO BID [facility] Last Admin: 03/09/19 22:33 Dose: 100 mg Documented by: Ergocalciferol (Vitamin D) 50,000 unit PO We@0800 [facility] Furosemide (Lasix) 40 mg PO DAILY [facility] Glucagon () 1 mg IM .X1 PRN PRN Reason: Hypoglycemia Nortriptyline HCl (Pamelor) 25 mg PO QHS [facility] Last Admin: 03/09/19 22:33 Dose: 25 mg Documented by: Ondansetron HCl (Zofran Odt) 4 mg PO Q8H PRN PRN PRN Reason: NAUSEA Polyethylene Glycol (Miralax) 17 gm PO DAILY [facility] Pregabalin (Lyrica) 50 mg PO DAILY [facility] Sodium Chloride () 10 - 40 ml IV UD PRN PRN Reason: SALINE FLUSH Venlafaxine HCl (Effexor Xr) 75 mg PO DAILY [facility] - Past Medical History Past Medical History (Chronic Problems): Chronic Problems (Last Reviewed 02/12/19 @ 20:40 by Virgil Murray DO) Ulcer of right thigh (Chronic) Ulcer of left thigh (Chronic) Skin necrosis (Chronic) bilateral thighs Patient on peritoneal dialysis (Chronic) ESRD (end stage renal disease) (Chronic) Debility (Chronic) Gastroparesis (Chronic) Orthostatic hypotension (Chronic) Chronic renal failure, stage 4 (severe) (Chronic) Morbid obesity (Chronic) HTN (hypertension) (Chronic) Bilateral hydronephrosis (Chronic) Iron deficiency anemia (Chronic) Type II diabetes mellitus (Chronic) Coronary artery disease (Chronic) Chronic low back pain (Chronic) Hydroureter (Chronic) Bladder outlet obstruction (Chronic) - Past Surgical History Surgical History: - - PCI, bilateral ureteral stent placements and removal, AVF creation, tunnel intervention, port placement. - Social History Smoking Status: Never smoker Alcohol: None Drugs: None - Family History Maternal History Items: Unknown - Patient was adopted and she does not know her family of origin to be able to provide any family medical history. Paternal History Items: Unknown - Patient was adopted and she does not know her family of origin to be able to provide any family medical history. Review of Systems Constitutional: Reports: Anorexia, Weakness. Denies: Chills, Fever Cardiovascular: Denies: Chest Pain, Edema Respiratory: Denies: Cough, Shortness of Breath Gastrointestinal: Denies: Abdominal Pain, Nausea, Vomiting Skin: Reports: Wounds - BILATERAL THIGHS, DRSG APPLIED Psychiatric: Reports: Depression Hematologic/ Lymphatic: Reports: Anemia Patient Problems: Active and Suspected Problems (Last Reviewed 02/12/19 @ 20:40 by Virgil Murray DO) Problem with dialysis access (Acute) - Physical Exam Vitals/I&O's: Vital Signs Temp Pulse Resp BP Pulse Ox 97.7 F L 88 18 124/79 H 97 03/10/19 03:18 03/10/19 07:47 03/10/19 03:18 03/10/19 03:18 03/10/19 03:18 Oxygen Delivery Method Room Air Weight: 107.2 kg Body Mass Index (BMI) 43.5 Finger Stick Blood Glucose 53 Intake and Output for Last 24 Hours 12/08/19 12/09/19 12/10/19 23:59 23:59 23:59 Intake Total 310.42 / 310.42 100 / 100 Output Total 0 / 0 Balance 310.42 / 310.42 100 / 100 General: Alert, Oriented x3, Cooperative, No apparent distress, - - debilitatd, morbidly obese Oral: Dry Mucosa Neck: Supple, No JVD Lungs: Clear to auscultation Cardiovascular: Regular rate Abdomen: Bowel Sounds Present, Soft, Non Tender, Non-Distended, Obese Extremities: No edema Musculoskeletal: No Tenderness to Palpation of Joints or Extremities, Muscle Wasting Neurological: - - GENERALIZED DEBILITY, UNABLE TO TRANSFER Psych/Mental Status: Normal Affect, Appropriate, Alert and oriented to time, place, person, mood and affect Laboratory Results 03/09/19 14:40: WBC 12.1 H, RBC 3.13 L, Hgb 7.5 L, Hct 23.9 L, MCV 76.4 L, MCH 24.0 L, MCHC 31.4 L, RDW Std Deviation 52.5 H, RDW Coeff of Lu 19.0 H, Plt Count 163, MPV 9.3, Immature Gran % (Auto) 1.700 H, Neut % (Auto) 86.0 H, Lymph % (Auto) 5.3 L, [place] % (Auto) 6.1, Eos % (Auto) 0.7, Baso % (Auto) 0.2, Absolute Neuts (auto) 10.4 H, Absolute Lymphs (auto) 0.64 L, Nucleated RBC % 0 03/09/19 14:40: Sodium 139, Potassium 4.4, Chloride 101, Carbon Dioxide 26.0, Anion Gap 12, BUN 30 H, Creatinine 4.33 H, Estim Creat Clear Calc 13.25, Est GFR (MDRD) Af Amer 14 L, Est GFR (MDRD) Non-Af 12 L, BUN/Creatinine Ratio 6.9 L, Glucose 89, Calcium 8.5 03/09/19 14:40: Lactic Acid 1.0 03/09/19 22:22: POC Glucose 73 03/10/19 05:04: WBC 13.1 H, RBC 3.53 L, Hgb 8.3 L, Hct 27.4 L, MCV 77.6 L, MCH 23.5 L, MCHC 30.3 L, RDW Std Deviation 53.0 H, RDW Coeff of Lu 18.8 H, Plt Count 157, MPV 9.4 03/10/19 05:04: PT 17.6 H, INR 1.5, APTT 41.1 H 03/10/19 05:04: Sodium 137, Potassium 4.7, Chloride 101, Carbon Dioxide 23.0, Anion Gap 13, BUN 32 H, Creatinine 4.65 H, Estim Creat Clear Calc 12.34, Est GFR (MDRD) Af Amer 13 L, Est GFR (MDRD) Non-Af 11 L, BUN/Creatinine Ratio 6.9 L, Glucose 71 L, Calcium 8.2 L 03/10/19 05:04: Hemoglobin A1c 5.6 03/10/19 06:47: POC Glucose 84 Current Medications Bupropion HCl (Wellbutrin Xl) 300 mg PO DAILY [facility] Dextrose (D50w Syringe) 0 gm IV X1 PRN; Protocol PRN Reason: Hypoglycemia Docusate Sodium (Colace) 100 mg PO BID [facility] Last Admin: 03/09/19 22:33 Dose: 100 mg Documented by: Ergocalciferol (Vitamin D) 50,000 unit PO We@0800 [facility] Furosemide (Lasix) 40 mg PO DAILY [facility] Glucagon () 1 mg IM .X1 PRN PRN Reason: Hypoglycemia Nortriptyline HCl (Pamelor) 25 mg PO QHS [facility] Last Admin: 03/09/19 22:33 Dose: 25 mg Documented by: Ondansetron HCl (Zofran Odt) 4 mg PO Q8H PRN PRN PRN Reason: NAUSEA Polyethylene Glycol (Miralax) 17 gm PO DAILY [facility] Pregabalin (Lyrica) 50 mg PO DAILY [facility] Sodium Chloride () 10 - 40 ml IV UD PRN PRN Reason: SALINE FLUSH Venlafaxine HCl (Effexor Xr) 75 mg PO DAILY [facility] Assessment/Plan All Active Problems (Last Reviewed 02/12/19 @ 20:40 by Virgil Murray DO) Problem with dialysis access (Acute) Encephalopathy acute (Acute) Necrotizing soft tissue infection (Acute) Open wound of both lower extremities with complication (Acute) Calciphylaxis (Acute) Lower extremity weakness (Acute) Generalized weakness (Acute) Syncope (Acute) 1. ESRD HD TTS with tunneled dialysis catheter. Hx steal sydrome with ligation of AVF. Pt with nonfunctioning PD catheter. Unable to drain. Will ask Dr. Patricia to remove PD catheter. Pt severely debilitated. Poor PD candidate. Pt full assist. DW CM re placement for ECF with incenter dialysis. 2. Anemia VIVIAN on HD 3. Obstructive uropathy 4. Morbid obesity 5. Severe debility at ECF. 6. Wound infection s/p debridement prior hospitalization. Scheduled for debridement today with Dr. Cuevas. 7. DMT2 primary service mgmt
[2019-03-10] MEDS: Ondansetron ODT 4 MG Tablet PO ×2 (10:43→19:42)
--- NOTE | 2019-03-10 10:57 | PCM.CONS.GEN ---
Problem List (1) Problem with dialysis access Status: Acute Reason for Consult Date of Consultation: 03/10/19 History of Present Illness: The patient is a 43 year old F who reports that for at least 3 weeks she has had nonfunctioning peritoneal dialysis catheter. I have been asked to remove these catheters per Dr. Betty Odonnell and a written copy of my consult will be available on her chart. The patient is admitted for Dr. Reynaldo Cuevas to perform ongoing sequential wound debridement of bilateral thigh wounds. Unfortunately the patient is getting dialyzed today and Dr. Cuevas prefers not to perform the wound debridement on the day of dialysis.. Past Medical History Past Medical History (Chronic Problems): Chronic Problems (Last Reviewed 02/12/19 @ 20:40 by Virgil Murray DO) Ulcer of right thigh (Chronic) Ulcer of left thigh (Chronic) Skin necrosis (Chronic) bilateral thighs Patient on peritoneal dialysis (Chronic) ESRD (end stage renal disease) (Chronic) Debility (Chronic) Gastroparesis (Chronic) Orthostatic hypotension (Chronic) Chronic renal failure, stage 4 (severe) (Chronic) Morbid obesity (Chronic) HTN (hypertension) (Chronic) Bilateral hydronephrosis (Chronic) Iron deficiency anemia (Chronic) Type II diabetes mellitus (Chronic) Coronary artery disease (Chronic) Chronic low back pain (Chronic) Hydroureter (Chronic) Bladder outlet obstruction (Chronic) Medical History: Medical History (Last Reviewed 02/12/19 @ 20:40 by Virgil Murray DO) Chronic renal failure, stage 4 (severe) (Chronic) N18.4 Anemia D64.9 Anxiety and depression F41.8 Back problem M53.9 Carpal tunnel syndrome G56.00 Diabetes type 2, controlled E11.9 H/O nephrolithotomy with removal of calculi Z98.890, Z87.442 H/O transfusion of whole blood Z92.89 Headache R51 Heart disease I51.9 Hives L50.9 Kidney disease N28.9 Kidney failure N19 Kidney stone N20.0 Neuropathy G62.9 Recurrent infections B99.9 Seasonal allergies J30.2 UTI (urinary tract infection) N39.0 Vitamin deficiency E56.9 HTN (hypertension) I10 Allergies ciprofloxacin [From Cipro] Adverse Reaction (Verified 03/09/19 13:53) Vomiting contrast dye Allergy (Severe, Uncoded 03/09/19 13:53) Anaphylaxis Home Medications: Ambulatory Orders Medication Instructions Recorded Ergocalciferol [Vitamin D] 50,000 unit PO WE 04/18/17 Aspirin E.C. [Ecotrin] 81 mg PO DAILY@0800 07/15/18 Bupropion HCl [Bupropion Xl] 300 mg PO DAILY 09/22/18 Ondansetron [Zofran Odt] 4 mg PO Q8H PRN PRN #10 tab 02/12/19 Oxycodone HCl/Acetaminophen 1 ea PO Q6H PRN PRN 02/12/19 [Percocet 5-325 mg Tablet] Docusate Sodium [Colace] 100 mg PO BID cap 02/23/19 Nepro with Carbsteady [Nepro Carb 120 ml PO TIDCM liquid 02/23/19 Steady] Polyethylene Glycol 3350 [Miralax] 17 gm PO DAILY packet 02/23/19 Furosemide 40 mg PO DAILY 02/25/19 Nortriptyline HCl [Pamelor] 25 mg PO QHS #0 02/27/19 Pregabalin [Lyrica] 50 mg PO DAILY #0 02/27/19 Nystatin [Nystop] 60 gm TP BID 03/09/19 Venlafaxine HCl [Venlafaxine HCl 75 mg PO DAILY 03/09/19 ER] Surgical History: Surgical History (Last Reviewed 02/12/19 @ 20:40 by Virgil Murray DO) H/O heart artery stent Z95.5 History of carpal tunnel surgery Z92.89 Presence of surgically created arteriovenous shunt for hemodialysis Z99.2 Surgical History: - - PCI, bilateral ureteral stent placements and removal, AVF creation, tunnel intervention, port placement. 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 Paternal History Items: Unknown - Patient was adopted and she does not know her family of origin to be able to provide any family medical history. Patient Problems: Active and Suspected Problems (Last Reviewed 02/12/19 @ 20:40 by Virgil Murray DO) Problem with dialysis access (Acute) - Physical Exam Vitals/I&O's: Vital Signs Temp Pulse Resp BP Pulse Ox 97.7 F L 88 18 124/79 H 97 03/10/19 03:18 03/10/19 07:47 03/10/19 03:18 03/10/19 03:18 03/10/19 03:18 Oxygen Delivery Method Room Air Weight: 236 lb 5.369 oz Body Mass Index (BMI) 43.5 Finger Stick Blood Glucose 53 Intake and Output for Last 24 Hours 03/08/19 03/09/19 03/10/19 23:59 23:59 23:59 Intake Total 310.42 / 310.42 100 / 100 Output Total 0 / 0 Balance 310.42 / 310.42 100 / 100 Abdomen: Soft - Peritoneal dialysis catheters exiting left lower quadrant. Eschar scab inferior to the umbilicus into the left apparently heating pad injury. No purulence or erythema Microbiology Past 72 Hours 03/09/19 14:45 Tissue Ulcer - Leg Gram Stain - Final Laboratory Results 03/09/19 14:40: WBC 12.1 H, RBC 3.13 L, Hgb 7.5 L, Hct 23.9 L, MCV 76.4 L, MCH 24.0 L, MCHC 31.4 L, RDW Std Deviation 52.5 H, RDW Coeff of Lu 19.0 H, Plt Count 163, MPV 9.3, Immature Gran % (Auto) 1.700 H, Neut % (Auto) 86.0 H, Lymph % (Auto) 5.3 L, [place] % (Auto) 6.1, Eos % (Auto) 0.7, Baso % (Auto) 0.2, Absolute Neuts (auto) 10.4 H, Absolute Lymphs (auto) 0.64 L, Nucleated RBC % 0 03/09/19 14:40: Sodium 139, Potassium 4.4, Chloride 101, Carbon Dioxide 26.0, Anion Gap 12, BUN 30 H, Creatinine 4.33 H, Estim Creat Clear Calc 13.25, Est GFR (MDRD) Af Amer 14 L, Est GFR (MDRD) Non-Af 12 L, BUN/Creatinine Ratio 6.9 L, Glucose 89, Calcium 8.5 03/09/19 14:40: Lactic Acid 1.0 03/09/19 22:22: POC Glucose 73 03/10/19 05:04: WBC 13.1 H, RBC 3.53 L, Hgb 8.3 L, Hct 27.4 L, MCV 77.6 L, MCH 23.5 L, MCHC 30.3 L, RDW Std Deviation 53.0 H, RDW Coeff of Lu 18.8 H, Plt Count 157, MPV 9.4 03/10/19 05:04: PT 17.6 H, INR 1.5, APTT 41.1 H 03/10/19 05:04: Sodium 137, Potassium 4.7, Chloride 101, Carbon Dioxide 23.0, Anion Gap 13, BUN 32 H, Creatinine 4.65 H, Estim Creat Clear Calc 12.34, Est GFR (MDRD) Af Amer 13 L, Est GFR (MDRD) Non-Af 11 L, BUN/Creatinine Ratio 6.9 L, Glucose 71 L, Calcium 8.2 L 03/10/19 05:04: Hemoglobin A1c 5.6 03/10/19 06:47: POC Glucose 84 Current Medications Bupropion HCl (Wellbutrin Xl) 300 mg PO DAILY [facility] Last Admin: 03/10/19 09:53 Dose: Not Given Documented by: Dextrose (D50w Syringe) 0 gm IV X1 PRN; Protocol PRN Reason: Hypoglycemia Docusate Sodium (Colace) 100 mg PO BID [facility] Last Admin: 03/10/19 09:52 Dose: Not Given Documented by: Ergocalciferol (Vitamin D) 50,000 unit PO We@0800 [facility] Furosemide (Lasix) 40 mg PO DAILY [facility] Last Admin: 03/10/19 09:53 Dose: Not Given Documented by: Glucagon () 1 mg IM .X1 PRN PRN Reason: Hypoglycemia Nortriptyline HCl (Pamelor) 25 mg PO QHS [facility] Last Admin: 03/09/19 22:33 Dose: 25 mg Documented by: Ondansetron HCl (Zofran Odt) 4 mg PO Q8H PRN PRN PRN Reason: NAUSEA Last Admin: 03/10/19 10:43 Dose: 4 mg Documented by: Polyethylene Glycol (Miralax) 17 gm PO DAILY [facility] Last Admin: 03/10/19 09:53 Dose: Not Given Documented by: Pregabalin (Lyrica) 50 mg PO DAILY [facility] Last Admin: 03/10/19 09:53 Dose: Not Given Documented by: Sodium Chloride () 10 - 40 ml IV UD PRN PRN Reason: SALINE FLUSH Venlafaxine HCl (Effexor Xr) 75 mg PO DAILY [facility] Last Admin: 03/10/19 09:52 Dose: Not Given Documented by: Assessment/Plan All Active Problems (Last Reviewed 02/12/19 @ 20:40 by Virgil Murray DO) Problem with dialysis access (Acute) Encephalopathy acute (Acute) Necrotizing soft tissue infection (Acute) Open wound of both lower extremities with complication (Acute) Calciphylaxis (Acute) Lower extremity weakness (Acute) Generalized weakness (Acute) Syncope (Acute) Nonfunctioning peritoneal dialysis catheters. Poor ongoing peritoneal dialysis catheter risk because of chronic thigh wounds and debility. I have discussed with the patient removal of the catheters and I described the technique, benefits, risks and alternatives. This can be accomplished with monitored anesthesia care and local anesthetic. Because of competitive scheduling issues I am not available to assist tomorrow or Saturday. We will proceed tonight after the routine OR schedule. Mohinder Patricia M.D., F.A.C.S.
[2019-03-10] MEDS: Dextrose 50%-Water 25 GM/50 ML DISP.SYRIN IV ×2 (11:23→14:32)
[2019-03-10] MEDS: Heparin 10,000 UNITS/10 ML Vial IV (11:30)
--- NOTE | 2019-03-10 12:42 | NURSING ---
last blood glucose that was done was 57, lab was called for back, and they have not been able to draw blood yet. Pt is alert and talking, nurse attempted to get blood glucose x2 again , was unable to get blood glucose. Another lab person is in room now, and assessing veins.
--- NOTE | 2019-03-10 13:06 | PCM.CONS.B ---
- Consult Date of Consult: 03/10/19 - Reason for Consult Reason for Consult Date of Consultation: 02/15/19 Reason for Consultation: Necrotic wounds bilateral thighs in patient with renal failure and dialysis. REFERRING PHYSICIAN: Dr. Horner. DIRECTOR OF CASEWORK: Dr. Cuevas. History of Present Illness: The patient is a 43 year old F who was recently admitted with a several day history of intractable nausea and vomiting and diarrhea. She has a history of diabetes mellitus and end stage renal disease on peritoneal dialysis. Since last week she started developing some areas of black eschar and necrotic skin on her bilateral thighs, worse on the left. They are painful when bumped. It was noted over the last week that these necrotic areas are worsening and enlarging. I was asked to evaluate this patient for surgical options for treatment. Past Medical History Past Medical History (Chronic Problems): Chronic Problems (Last Reviewed 02/12/19 @ 20:40 by Virgil Murray DO) Skin necrosis (Chronic) bilateral thighs Patient on peritoneal dialysis (Chronic) ESRD (end stage renal disease) (Chronic) Debility (Chronic) Orthostatic hypotension (Chronic) Chronic renal failure, stage 4 (severe) (Chronic) Morbid obesity (Chronic) HTN (hypertension) (Chronic) Bilateral hydronephrosis (Chronic) Iron deficiency anemia (Chronic) Type II diabetes mellitus (Chronic) Coronary artery disease (Chronic) Chronic low back pain (Chronic) Hydroureter (Chronic) Bladder outlet obstruction (Chronic) Medical History: Medical History (Last Reviewed 02/12/19 @ 20:40 by Virgil Murray DO) Chronic renal failure, stage 4 (severe) (Chronic) N18.4 Anemia D64.9 Anxiety and depression F41.8 Back problem M53.9 Carpal tunnel syndrome G56.00 Diabetes type 2, controlled E11.9 H/O nephrolithotomy with removal of calculi Z98.890, Z87.442 H/O transfusion of whole blood Z92.89 Headache R51 Heart disease I51.9 Hives L50.9 Kidney disease N28.9 Kidney failure N19 Kidney stone N20.0 Neuropathy G62.9 Recurrent infections B99.9 Seasonal allergies J30.2 UTI (urinary tract infection) N39.0 Vitamin deficiency E56.9 HTN (hypertension) I10 Allergies ciprofloxacin [From Cipro] Adverse Reaction (Verified 12/26/18 00:36) Vomiting contrast dye Allergy (Severe, Uncoded 12/26/18 00:36) Anaphylaxis Current Medications Acetaminophen (Tylenol) 650 mg PO Q6H PRN PRN PRN Reason: Pain Score 1-3/Temp > 100.7 F Last Admin: 02/15/19 06:41 Dose: 650 mg Documented by: Aspirin (Ecotrin) 81 mg PO DAILY@0800 [facility] Last Admin: 02/15/19 08:15 Dose: 81 mg Documented by: Bupropion HCl (Wellbutrin Xl) 300 mg PO DAILY [facility] Last Admin: 02/15/19 10:02 Dose: 300 mg Documented by: Dextrose (D50w Syringe) 0 gm IV X1 PRN; Protocol PRN Reason: Hypoglycemia Emollient Ointment (Eucerin Intensive Repair) 1 applic TOPICAL 4X/DAY PRN PRN; Protocol PRN Reason: DRY SKIN Glucagon () 1 mg IM .X1 PRN PRN Reason: Hypoglycemia Guaifenesin (Robitussin) 20 ml PO Q4H PRN PRN PRN Reason: COUGH Last Admin: 02/12/19 23:09 Dose: 20 ml Documented by: Insulin Human Lispro (Humalog Kwikpen (Bkc)) 0 unit SC ACHS [facility]; Protocol Last Admin: 02/15/19 12:22 Dose: Not Given Documented by: Lactic Acid (Lac-Hydrin, Amlactin) 1 applic TOPICAL TID [facility]; Protocol Melatonin (Melatonin) 3 mg PO QHS PRN PRN PRN Reason: INSOMNIA Last Admin: 02/12/19 23:07 Dose: 3 mg Documented by: Metoclopramide HCl (Metoclopramide Hcl) 5 mg PO TIDAC [facility] Last Admin: 02/15/19 12:17 Dose: 5 mg Documented by: Nortriptyline HCl (Pamelor) 50 mg PO QHS [facility] Last Admin: 02/14/19 21:59 Dose: 50 mg Documented by: Nutritional Formula (Lactose Free) (Ensure Clear) 120 ml PO TIDCM [facility] Last Admin: 02/15/19 12:17 Dose: Not Given Documented by: Nystatin (Mycostatin Powder) 1 applic TOPICAL BID [facility]; Protocol Last Admin: 02/15/19 10:02 Dose: 1 applicatio Documented by: Oxycodone HCl (Oxyir) 10 mg PO Q4H PRN PRN PRN Reason: Pain Score 6-10/10 Last Admin: 02/14/19 18:45 Dose: 10 mg Documented by: Pregabalin (Lyrica) 50 mg PO BID [facility] Last Admin: 02/15/19 10:04 Dose: 50 mg Documented by: Sodium Chloride () 10 - 40 ml IV UD PRN PRN Reason: SALINE FLUSH Last Admin: 02/15/19 06:33 Dose: 10 ml Documented by: Venlafaxine HCl (Effexor Xr) 150 mg PO DAILY [facility] Last Admin: 02/15/19 10:02 Dose: 150 mg Documented by: Home Medications: Ambulatory Orders Medication Instructions Recorded Ergocalciferol [Vitamin D] 50,000 unit PO WE 04/18/17 Venlafaxine XR [Effexor Xr] 150 mg PO DAILY 02/28/18 Aspirin E.C. [Ecotrin] 81 mg PO DAILY@0800 07/15/18 Nortriptyline HCl [Pamelor] 50 mg PO QHS 07/15/18 Pregabalin [Lyrica] 100 mg PO BID 07/15/18 Bupropion HCl [Bupropion Xl] 300 mg PO DAILY 09/22/18 cycloBENZAPRine HCl [Flexeril] 10 mg PO TID PRN #20 tab 12/26/18 Ondansetron [Zofran Odt] 4 mg PO Q8H PRN PRN #10 tab 02/12/19 Oxycodone HCl/Acetaminophen 1 ea PO Q6H PRN PRN 02/12/19 [Percocet 5-325 mg Tablet] Surgical History: Surgical History (Last Reviewed 02/12/19 @ 20:40 by Virgil Murray DO) H/O heart artery stent Z95.5 History of carpal tunnel surgery Z92.89 Presence of surgically created arteriovenous shunt for hemodialysis Z99.2 Surgical History: - - PCI, bilateral ureteral stent placements and removal, AVF creation, tunnel intervention, port placement. Psychiatric History: Anxiety, Depression PLANNER CHIEF History: No pertinent PLANNER CHIEF history Smoking Status: Never smoker - *Family History Maternal History Items: Unknown - Patient was adopted and she does not know her family of origin to be able to provide any family medical history. Paternal History Items: Unknown - Patient was adopted and she does not know her family of origin to be able to provide any family medical history. Review of Systems Comment: Constitutional: Reports: Anorexia, Malaise, Weakness. Denies: Chills, Fever. Eyes: Denies: Blurred vision, Double vision. HEENT: Denies: Head Aches, Sinus Congestion, Sinus Drainage. Cardiovascular: Denies: Chest Pain, Palpitations. Respiratory: Reports: Cough. Denies: Sputum production. Gastrointestinal: Reports: Diarrhea, Nausea, Vomiting. Denies: Abdominal Pain. Genitourinary: Denies: Dysuria, Hematuria. Musculoskeletal: Reports: Arm Pain, Leg Pain. Skin: Reports: Dryness, - - Sores underneath the right side of her pannus. Patient also has a painful lesion on her right anterior leg. Neurological: Reports: Numbness. Denies: Focal weakness, Tingling. Psychiatric: Denies: Anxiety, Depression. Hematologic/ Lymphatic: Reports: Hx of blood clot. Denies: Easy Bruising, Easy Bleeding Patient Problems: Active and Suspected Problems (Last Reviewed 02/12/19 @ 20:40 by Virgil Murray DO) Gastroparesis (Acute) - Physical Exam Vitals/I&O's: General: Alert, Cooperative, - - Comfortable. HEENT: PERRL. EOMI. Oral: Moist Mucosa. Neck: supple nontender. No cervical adenopathy. Lungs: Clear to auscultation. Cardiovascular: Regular rate, Regular Rhythm. Abdomen: Soft, Non-Distended. Extremities: No edema, No Calf Tenderness Skin: - - Patient has abdominal wall skin crease intertrigo with her pannus. Has some dry scabbing on her abdominal wall. She states she had used a heating pad recently when the dry scabs formed. There is the presence of a peritoneal dialysis catheter. Patient also has painful necrotic wounds bilateral thighs, worse on the left. No surrounding erythema. Patient has dry skin throughout as well. There is tenderness to palpation. Could not express any purulent drainage. The necrotic skin is a stable dry eschar. On the left proximal lateral thigh the eschar measures 14 cm. On the right proximal anterolateral thigh the eschar measures 19 cm. Neurological: CN II - XII grossly intact. Psych/Mental Status: Normal Affect, Appropriate Vital Signs Temp Pulse Resp BP Pulse Ox 98.8 F 108 H 18 119/61 94 02/15/19 08:09 11/17/19 08:09 02/15/19 08:09 02/15/19 08:09 02/15/19 08:09 Oxygen Delivery Method Room Air Weight: 260 lb 2 oz Body Mass Index (BMI) 45.8 Finger Stick Blood Glucose 98 Intake and Output for Last 24 Hours 02/13/19 02/14/19 02/15/19 23:59 23:59 23:59 Intake Total 1829.5 / 1829.5 1528.34 / 1528.34 0 / 0 Output Total 1000 / 1000 Balance 829.5 / 829.5 1528.34 / 1528.34 0 / 0 Microbiology Past 72 Hours 02/13/19 13:40 Fluid - Peritoneal Gram Stain - Final 02/13/19 13:40 Fluid - Peritoneal Body Fluid Culture - Preliminary No growth-Final to follow Laboratory Results 02/14/19 16:34: POC Glucose 95 02/14/19 16:40: Sodium 133 L, Potassium 4.4, Chloride 101, Carbon Dioxide 24.0, Anion Gap 8, BUN 27 H, Creatinine 5.68 H, Estim Creat Clear Calc 10.10, Est GFR (MDRD) Af Amer 11 L, Est GFR (MDRD) Non-Af 9 L, BUN/Creatinine Ratio 4.8 L, Glucose 97, Calcium 7.7 L 02/14/19 16:40: Magnesium 1.5 L 02/14/19 21:58: POC Glucose 189 H 02/15/19 05:45: Sodium 134 L, Potassium 3.6, Chloride 97 L, Carbon Dioxide 29.0, Anion Gap 8, BUN 27 H, Creatinine 5.66 H, Estim Creat Clear Calc 10.14, Est GFR (MDRD) Af Amer 11 L, Est GFR (MDRD) Non-Af 9 L, BUN/Creatinine Ratio 4.8 L, Glucose 105, Calcium 7.6 L 02/15/19 05:45: Magnesium 1.8 02/15/19 06:38: POC Glucose 106 Current Medications Acetaminophen (Tylenol) 650 mg PO Q6H PRN PRN PRN Reason: Pain Score 1-3/Temp > 100.7 F Last Admin: 02/15/19 06:41 Dose: 650 mg Documented by: Aspirin (Ecotrin) 81 mg PO DAILY@0800 [facility] Last Admin: 02/15/19 08:15 Dose: 81 mg Documented by: Bupropion HCl (Wellbutrin Xl) 300 mg PO DAILY [facility] Last Admin: 02/15/19 10:02 Dose: 300 mg Documented by: Dextrose (D50w Syringe) 0 gm IV X1 PRN; Protocol PRN Reason: Hypoglycemia Emollient Ointment (Eucerin Intensive Repair) 1 applic TOPICAL 4X/DAY PRN PRN; Protocol PRN Reason: DRY SKIN Glucagon () 1 mg IM .X1 PRN PRN Reason: Hypoglycemia Guaifenesin (Robitussin) 20 ml PO Q4H PRN PRN PRN Reason: COUGH Last Admin: 02/12/19 23:09 Dose: 20 ml Documented by: Insulin Human Lispro (Humalog Kwikpen (Bkc)) [address] [facility]; Protocol Last Admin: 02/15/19 12:22 Dose: Not Given Documented by: Lactic Acid (Lac-Hydrin, Amlactin) 1 applic TOPICAL TID [facility]; Protocol Melatonin (Melatonin) 3 mg PO QHS PRN PRN PRN Reason: INSOMNIA Last Admin: 02/12/19 23:07 Dose: 3 mg Documented by: Metoclopramide HCl (Metoclopramide Hcl) 5 mg PO TIDAC [facility] Last Admin: 02/15/19 12:17 Dose: 5 mg Documented by: Nortriptyline HCl (Pamelor) 50 mg PO QHS [facility] Last Admin: 02/14/19 21:59 Dose: 50 mg Documented by: Nutritional Formula (Lactose Free) (Ensure Clear) 120 ml PO TIDCM [facility] Last Admin: 02/15/19 12:17 Dose: Not Given Documented by: Nystatin (Mycostatin Powder) 1 applic TOPICAL BID [facility]; Protocol Last Admin: 02/15/19 10:02 Dose: 1 applicatio Documented by: Oxycodone HCl (Oxyir) 10 mg PO Q4H PRN PRN PRN Reason: Pain Score 6-10/10 Last Admin: 02/14/19 18:45 Dose: 10 mg Documented by: Pregabalin (Lyrica) 50 mg PO BID [facility] Last Admin: 02/15/19 10:04 Dose: 50 mg Documented by: Sodium Chloride () 10 - 40 ml IV UD PRN PRN Reason: SALINE FLUSH Last Admin: 02/15/19 06:33 Dose: 10 ml Documented by: Venlafaxine HCl (Effexor Xr) 150 mg PO DAILY [facility] Last Admin: 02/15/19 10:02 Dose: 150 mg Documented by: Assessment/Plan All Active Problems (Last Reviewed 02/12/19 @ 20:40 by Virgil Murray DO) Calciphylaxis (Acute) Lower extremity weakness (Acute) Generalized weakness (Acute) Gastroparesis (Acute) Syncope (Acute) 1. Necrotic wounds bilateral thighs, probably infected. 2. End stage renal disease on dialysis. 3. Peritoneal dialysis. 4. Painful calciphylaxis. 5. Diabetes mellitus. Patient has end stage renal disease on peritoneal dialysis. She has started developing areas of skin necrosis on her bilateral thighs, worse on the left. There is tenderness to palpation. With her history of diabetes mellitus and ESRD with dialysis, she is at increased risk of calciphylaxis which leads to painful fat necrosis and skin necrosis. These areas of enlarging skin necrosis on her bilateral thighs need excision to minimize infection in the future which can be life threatening. Will send tissue to Pathology for analysis to rule out carcinoma. Will also send tissue to Microbiology for culture. A positive culture will necessitate antibiotic therapy. Postop will begin wound care with the VAC. Will schedule the operative intervention tomorrow for surgical preparation bilateral thighs with incision and drainage and excisional debridement necrotic infected wounds. Will begin antibiotics with Levaquin since infections can be polymicrobial. Anticipate increased metabolic demands from the wounds and the infection. Will check a Prealbumin and encourage nutritional supplementation with protein to help the healing process. In renal failure patients on dialysis, when necrotic skin infections start developing, calciphylaxis can be present. Sometimes this is progressive in other areas on the extremities and the trunk which can also develop necrotic skin infections. Because of the severe pain present in these wounds and if multiple wounds develop, these patients sometimes need to go to a Burn Center for more aggressive wound care with a whirlpool and the need for much higher doses of IV analgesia. After discharge can followup at the Wound Center. Patient was informed of the risks and complications of the procedure including alternatives to surgery. These were discussed with the patient personally. Patient voices understanding and wishes to proceed.
[2019-03-10 13:20] LABS: Glucose 64 mg/dL (74-106)
--- NOTE | 2019-03-10 13:30 | CASEMGMT ---
Social Work Note SW spoke with physician who is requesting pt now go to SNF with on site dialysis. [facility] is [facility] from [facility]. RAIZA met with pt. SW familiar with pt from previous admissions. Pt confirms that she was spoken to regarding going to SNF with on site dialysis. RAIZA informed pt that unfortunately no SNF in [place] does on site dialysis. RAIZA provided pt with document from [facility] that has SNF listed that provide on site dialysis. Pt states that her parents had called [facility] in [facility] and they do on site dialysis. SW informed pt that this worker will call facility but encouraged pt to review list of other facilities as well that can do on site dialysis. Pt states understanding and will speak with her parents. Pt is having surgery today. RAIZA spoke with Dr. Cuevas who states debridement will be Saturday and pt could discharge Saturday if medically cleared. RAIZA found [facility] and spoke with admissions. They confirm they are able to provide on site dialysis but pt has to be either stage 5 or ESRD. RAIZA reviewed chart, pt is ESRD. Fax number is [phone]. Phone number is [phone]. SW will follow up with pt tomorrow to confirm discharge plans. Pt is having surgery today. Plan: Likely new SNF that can provide on site dialysis. SW to continue to follow. Josefina Rose DIGITAL MUSIC INSTRUCTOR, TRANSMITTER SUPERVISOR
[2019-03-10 14:01] LABS: Internal QC Validated? YES +Cl - CLEAR BKGD; Pregnancy, Serum, hCG Quali. NEGATIVE Negative
--- NOTE | 2019-03-10 14:50 | PN_ITS ---
Patient Problems: Active and Suspected Problems (Last Reviewed 02/12/19 @ 20:40 by Virgil Murray DO) Problem with dialysis access (Acute) Reason for Visit: with pain in LE. Vitals/I&O's: Vital Signs Temp Pulse Resp BP Pulse Ox 36.9 C 101 H 14 108/51 L 100 03/10/19 11:52 03/10/19 11:52 03/10/19 11:52 03/10/19 11:52 03/10/19 11:52 Oxygen Flow Rate (L/min) 2 Oxygen Delivery Method Nasal Cannula Weight: 107.7 kg Body Mass Index (BMI) 43.7 Finger Stick Blood Glucose 53 Intake and Output for Last 24 Hours 03/08/19 03/09/19 03/10/19 23:59 23:59 23:59 Intake Total 310.42 / 310.42 100 / 100 Output Total 700 / 700 Balance 310.42 / 310.42 -600 / -600 General: Alert HEENT: Atraumatic, Normocephalic Oral: Moist Mucosa, No Gingival or Mucosal Lesions/ Ulcerations Neck: No Nodes, Trachea Midline Lungs: Clear to auscultation, Normal air movement, No rhonchi, No wheeze Cardiovascular: Regular rate, Regular Rhythm, Normal S1, Normal S2 Abdomen: Bowel Sounds Present, Soft, Non Tender, Non-Distended, No Hepato- splenomegaly Extremities: No edema, No Calf Tenderness Skin: - - wounds bandaged. Review of Autumn Sandeep's photos showed abrasion in inguinal creases. Large open wound on right leg with granulating tissue. Smaller, but still large wound on left leg with granulating tissue. Psych/Mental Status: Normal Affect, Appropriate Microbiology Past 72 Hours 03/09/19 14:45 Tissue Ulcer - Leg Gram Stain - Final 03/09/19 14:45 Tissue Ulcer - Leg Wound Culture - Preliminary Gram positive kenny 03/09/19 14:45 Wound - Leg, Right Wound Culture - Preliminary Gram positive kenny Laboratory Results 03/09/19 14:40: WBC 12.1 H, RBC 3.13 L, Hgb 7.5 L, Hct 23.9 L, MCV 76.4 L, MCH 24.0 L, MCHC 31.4 L, RDW Std Deviation 52.5 H, RDW Coeff of Lu 19.0 H, Plt Count 163, MPV 9.3, Immature Gran % (Auto) 1.700 H, Neut % (Auto) 86.0 H, Lymph % (Auto) 5.3 L, [place] % (Auto) 6.1, Eos % (Auto) 0.7, Baso % (Auto) 0.2, Absolute Neuts (auto) 10.4 H, Absolute Lymphs (auto) 0.64 L, Nucleated RBC % 0 03/09/19 14:40: Sodium 139, Potassium 4.4, Chloride 101, Carbon Dioxide 26.0, Anion Gap 12, BUN 30 H, Creatinine 4.33 H, Estim Creat Clear Calc 13.25, Est GFR (MDRD) Af Amer 14 L, Est GFR (MDRD) Non-Af 12 L, BUN/Creatinine Ratio 6.9 L, Glucose 89, Calcium 8.5 03/09/19 14:40: Lactic Acid 1.0 03/09/19 14:40: Serum , Qual NEGATIVE 03/09/19 22:22: POC Glucose 73 03/10/19 05:04: WBC 13.1 H, RBC 3.53 L, Hgb 8.3 L, Hct 27.4 L, MCV 77.6 L, MCH 23.5 L, MCHC 30.3 L, RDW Std Deviation 53.0 H, RDW Coeff of Lu 18.8 H, Plt Count 157, MPV 9.4 03/10/19 05:04: PT 17.6 H, INR 1.5, APTT 41.1 H 03/10/19 05:04: Sodium 137, Potassium 4.7, Chloride 101, Carbon Dioxide 23.0, Anion Gap 13, BUN 32 H, Creatinine 4.65 H, Estim Creat Clear Calc 12.34, Est GFR (MDRD) Af Amer 13 L, Est GFR (MDRD) Non-Af 11 L, BUN/Creatinine Ratio 6.9 L, Glucose 71 L, Calcium 8.2 L 03/10/19 05:04: Hemoglobin A1c 5.6 03/10/19 06:47: POC Glucose 84 03/10/19 12:40: Glucose 64 L Current Medications Bupropion HCl (Wellbutrin Xl) 300 mg PO DAILY [facility] Last Admin: 03/10/19 09:53 Dose: Not Given Documented by: Dextrose (D50w Syringe) 0 gm IV X1 PRN; Protocol PRN Reason: Hypoglycemia Docusate Sodium (Colace) 100 mg PO BID [facility] Last Admin: 03/10/19 09:52 Dose: Not Given Documented by: Ergocalciferol (Vitamin D) 50,000 unit PO We@0800 [facility] Furosemide (Lasix) 40 mg PO DAILY [facility] Last Admin: 03/10/19 09:53 Dose: Not Given Documented by: Glucagon () 1 mg IM .X1 PRN PRN Reason: Hypoglycemia Hydromorphone HCl (Dilaudid Inj) 0.5 mg IV Q4H PRN PRN PRN Reason: Pain Score 1-01/08 Levofloxacin (Levaquin Iv) 500 mg in 100 mls @ 100 mls/hr IV X1 ONE Stop: 03/10/19 15:44 Levofloxacin (Levaquin Iv) 250 mg in 50 mls @ 50 mls/hr IV Q48H [facility] Nortriptyline HCl (Pamelor) 25 mg PO QHS [facility] Last Admin: 03/09/19 22:33 Dose: 25 mg Documented by: Nutritional Formula (Nepro Carb Steady) 120 ml PO 4X/DAY [facility] Last Admin: 03/10/19 13:40 Dose: Not Given Documented by: Ondansetron HCl (Zofran Odt) 4 mg PO Q8H PRN PRN PRN Reason: NAUSEA Last Admin: 03/10/19 10:43 Dose: 4 mg Documented by: Polyethylene Glycol (Miralax) 17 gm PO DAILY [facility] Last Admin: 03/10/19 09:53 Dose: Not Given Documented by: Pregabalin (Lyrica) 50 mg PO DAILY [facility] Last Admin: 03/10/19 09:53 Dose: Not Given Documented by: Sodium Chloride () 10 - 40 ml IV UD PRN PRN Reason: SALINE FLUSH Sodium Hypochlorite (Dakins Solution 0.25% (1/2 Strength)) 1 applic TOPICAL BID [facility]; Protocol Venlafaxine HCl (Effexor Xr) 75 mg PO DAILY [facility] Last Admin: 03/10/19 09:52 Dose: Not Given Documented by: STROKE Vital Signs/Narrative: Vital Signs Temp Pulse Resp BP Pulse Ox 03/10/19 11:52 36.9 C 101 H 14 108/51 L 100 03/10/19 11:42 37.0 C 101 H 12 108/51 L 100 Medical Necessity - Tobacco Use Smoking Status: Never smoker Tobacco Use: Non-smoker Assessment/Plan All Active Problems (Last Reviewed 02/12/19 @ 20:40 by Virgil Murray DO) Problem with dialysis access (Acute) Encephalopathy acute (Acute) Necrotizing soft tissue infection (Acute) Open wound of both lower extremities with complication (Acute) Calciphylaxis (Acute) Lower extremity weakness (Acute) Generalized weakness (Acute) Syncope (Acute) 1. infected leg wounds * on levaquin * for repeat debridement on 03/11 * continue wound care * follow up wound cultures. 2. ESRD * on HD * PD catheter to be removed 3. DM2 * uncontrolled, hypoglycemic * hopefully can stablize once able to have oral (has been NPO for surgery today) 4. VTE proph: SQ heparin Code Visit Inpatient E&M: 39022 Subs Hosp L2
--- NOTE | 2019-03-10 15:46 | NURSING ---
Report called to Betty RN in [facility], including that last glucose was 64, and this nurse was going to given the d50 ,but pt only received a sm amt since she c/0 burning at IV site. IV was noted to be infiltrated and dc'd. Stefan from surgery tried 3 to 4 times to get an IV, no success. She was also informed of the last vital signs. She requested that the hospitalist be notified that pt did not receive the d50 and no Iv, which was done. Virgil from ER said he did get an iv in, but not the best. Betty said to send the pt, and the d50 was sent and the iv levequin was also sent with pt.
[2019-03-10 16:06] LABS: Bedside Glucose 46 mg/dL (70-110)
[2019-03-10 16:36] LABS: Bedside Glucose 59 mg/dL (70-110)
[2019-03-10] MEDS: 0.9% Normal Saline 500 ML IV.SOLN. IV (16:38)
[2019-03-10] MEDS: Bupivacaine Mpf 0.5% 30 ML VIAL (16:52)
[2019-03-10] MEDS: levoFLOXacin IV 500 MG/100 ML BAG 100 MG IV (16:54)
--- NOTE | 2019-03-10 17:31 | PCM.OPRPT ---
Problem List (1) Problem with dialysis access Status: Acute Qualifiers: Encounter type: initial encounter Qualified Code(s): T82.898A - Other specified complication of vascular prosthetic devices, implants and grafts, initial encounter Report of Operation Date of Procedure: 03/10/19 Pre-Operative Diagnosis: Non-functional tunneled peritoneal dialysis catheters Post-Operative Diagnosis: Nonfunctional tunneled peritoneal dialysis catheters with extension connection and 4 cuffs Surgery/Procedure Performed:: Removal tunneled peritoneal dialysis catheter Description of Surgical Findings:: Timeout and informed consent was obtained. 43 old female was taken to the operating placement table. The abdomen sterilely prepped and draped with Betadine. She underwent monitored anesthesia care local anesthetic. 1% lidocaine mixed 50-50 with 0.5% Marcaine was used as local anesthetic. A total of 30 cc was used. I made my initial incision inferior and slight to the left umbilicus at the site of the previous incision sharp and blunt dissection was used to identify the superficial cuff which I dissected free and released. I then dissected down to the peritoneum where extensive rectal fascial dissection had to be performed due to the depth of that second cuff. Tediously identified the cuff and was able to sharply release it in the sub-anterior rectus fascial plane. That allowed me to release the internal components and pigtail portion of the catheter. I closed that anterior rectus sheath with a [id number] suture of 0 Vicryl. I then went to release the remainder of the tubing and it still appeared to be fixed. Upon checking fixation I added local superior and slightly medial to the exit site in the left lateral abdomen sharp and blunt dissection there identified now a third count for which I released but that still did not release the tubing. I had to dissected more medially where then I encountered dense adherence of the connection titanium device that had an to length of tubing connected. Very tedious dissection was required to finally release that and released the remnants of the tubing. Rather than 1 2 counterincisions had been made one inferior and slightly the left umbilicus and one superior and slightly medial to the catheter exit site. A total of 4 different cuffs had to be released in addition to the titanium attachment device. All of that was achieved. Hemostasis attained with electrocautery. The wounds were closed with a running septic or 4-0 Monocryl. Steri-Strips Telfa and OpSite dressings applied. The tubing was all inspected and noted be completely appropriate and intact. She was taken to the recovery area in satisfactory edition without apparent complication. Specimen just includes the fragments of the peritoneal dialysis catheter. Blood loss minimal. Drains none. Mohinder Patricia M.D., F.A.C.S. Type of Anesthesia:: Local MAC Anesthesiologist: Yahaira Verde
[2019-03-10 18:10] LABS: Bedside Glucose 92 mg/dL (70-110)
[2019-03-10] MEDS: 0.9% Saline Lock 10 ML Syringe IV (19:01)
[2019-03-10] MEDS: Docusate Sodium 100 MG Capsule PO (22:42)
[2019-03-10] MEDS: Nepro Liquid 120 ML LIQUID PO (22:47)
[2019-03-10] MEDS: Heparin Injection (Vial) 5,000 UNIT/ML VIAL 5000 UNIT SC (23:03)
[2019-03-11] LABS: Bedside Glucose 153 mg/dL (70-110)
[2019-03-11] MEDS: DAKIN'S SOL HALF STRENGTH (=0.25%) 1 APPLIC TOPICAL ×2 (00:18→09:59)
[2019-03-11] MEDS: Ondansetron ODT 4 MG Tablet PO ×2 (04:04→09:55)
[2019-03-11 04:05] VITALS: BP 125/44; PULSE 96; RESP 16; TEMP 36.8; O2SAT 92
[2019-03-11 06:23] LABS: Absolute Lymphocyte Count 0.73 X10^3/uL (0.83-4.51); Absolute Neutrophil Count 10.5 X10^3/uL (2.0-7.7); Basophil# 0.02 X10^3/uL; Basophil% 0.2 % (0-1); Eosinophil# 0.04 X10^3/uL; Eosinophils% 0.3 % (0-5); Hematocrit 22.6 % (37-47); Hemoglobin 7.1 g/dL (12.0-15.0); Lymphocyte # 0.73 X10^3/ul (4.0); Lymphocyte % 5.9 % (19-41); Mean Corp Hgb Conc 31.4 g/dL (32-36); Mean Corpuscular Hgb 24.1 pg (27.0-32.0); Mean Corpuscular Volume 76.6 fL (81-99); Mean Platelet Vol. 9.2 fl (6.2-12.0); Monocyte# 0.92 X10^3/uL; Monocyte% 7.4 % (0-10); NRBC Flagged by Analyzer 0 % (0-5); Neutrophil # 10.49 X10^3/uL (2.7-7.7); Neutrophil % 84.4 % (47-70); Platelet Count 168 K/mm3 (150-450); RBC Distribution Width CV 18.7 % (11.6-14.6); RBC Distribution Width SD 51.4 fl (35.1-43.9); Red Blood Count 2.95 M/mm3 (4.2-5.4); White Blood Count 12.4 K/mm3 (4.4-11.0)
[2019-03-11 06:42] LABS: Anion Gap 10 (5-15); BUN 18 mg/dL (7-18); BUN/Creat Ratio 5.7 RATIO (10-20); Calcium,Total 8.2 mg/dL (8.5-10.1); Chloride 104 mmol/L (98-107); Creatinine, Serum 3.16 mg/dL (0.55-1.02); EST Glomerular Filtration Rate 17 mL/min (>60); Est Glom Filt Rate - Afr Amer 21 mL/min (>60); Estimated Creatinine Clearance 17.32 ml/min; Glucose 111 mg/dL (74-106); Potassium 4.1 mmol/L (3.5-5.1); Sodium Level 139 mmol/L (136-145)
[2019-03-11 07:01] LABS: Bedside Glucose 100 mg/dL (70-110)
[2019-03-11 07:10] LABS: Bedside Glucose 57 mg/dL (70-110)
[2019-03-11 07:10] LABS: Bedside Glucose 63 mg/dL (70-110)
[2019-03-11 08:35] VITALS: BP 97/43; PULSE 95; RESP 12; TEMP 36.7; O2SAT 98
[2019-03-11 08:43] VITALS: PULSE 110
[2019-03-11] MEDS: Nepro Liquid 120 ML LIQUID PO (09:34)
[2019-03-11] MEDS: Docusate Sodium 100 MG Capsule PO ×2 (09:38→21:23)
[2019-03-11] MEDS: Heparin Injection (Vial) 5,000 UNIT/ML VIAL 5000 UNIT SC ×2 (09:38→21:24)
[2019-03-11] MEDS: Pregabalin 50 MG Capsule PO (09:38)
[2019-03-11] MEDS: Venlafaxine XR 75 MG Capsule PO (09:39)
[2019-03-11] MEDS: buPROPion (XL) 300 MG TABLET.XL PO (09:40)
[2019-03-11] MEDS: oxyCODONE 5 MG Tablet PO (09:55)
--- NOTE | 2019-03-11 10:07 | PCM.PN.SRG ---
Patient Problems: Active and Suspected Problems (Last Reviewed 02/12/19 @ 20:40 by Virgil Murray DO) Problem with dialysis access (Acute) Subjective: Patient evaluated laying in bed. She is lethargic. She did not wake up during the visit. Patient denies abdominal pain by shaking her head no. - Physical Exam Vitals/I&O's: Vital Signs Temp Pulse Resp BP Pulse Ox 98.1 F 110 H 12 97/43 L 98 03/11/19 08:35 03/11/19 08:43 03/11/19 08:35 03/11/19 08:35 03/11/19 08:35 Oxygen Flow Rate (L/min) 2 Oxygen Delivery Method Room Air Weight: 236 lb 8.896 oz Body Mass Index (BMI) 43.7 Finger Stick Blood Glucose 92 Intake and Output for Last 24 Hours 03/09/19 03/10/19 03/11/19 23:59 23:59 23:59 Intake Total 310.42 / 310.42 320 / 320 50 / 50 Output Total 700 / 700 Balance 310.42 / 310.42 -380 / -380 50 / 50 General: Lethargic Abdomen: Obese, - - Incisions sites from PD catheter removal are c/d/i. Op-sites intact. Microbiology Past 72 Hours 03/09/19 14:45 Wound - Leg, Right Wound Culture - Final Actinomyces meyeri 03/09/19 14:45 Tissue Ulcer - Leg Gram Stain - Final 03/09/19 14:45 Tissue Ulcer - Leg Wound Culture - Final Actinomyces meyeri Laboratory Results 03/09/19 14:40: Serum , Qual NEGATIVE 03/10/19 10:58: POC Glucose 63 L 03/10/19 12:06: POC Glucose 57 L 03/10/19 12:40: Glucose 64 L 03/10/19 16:00: POC Glucose 46 L 03/10/19 16:31: POC Glucose 59 L 03/10/19 17:51: POC Glucose 92 03/10/19 22:40: POC Glucose 153 H 03/11/19 06:06: WBC 12.4 H, RBC 2.95 L, Hgb 7.1 L, Hct 22.6 L, MCV 76.6 L, MCH 24.1 L, MCHC 31.4 L, RDW Std Deviation 51.4 H, RDW Coeff of Lu 18.7 H, Plt Count 168, MPV 9.2, Immature Gran % (Auto) 1.800 H, Neut % (Auto) 84.4 H, Lymph % (Auto) 5.9 L, [place] % (Auto) 7.4, Eos % (Auto) 0.3, Baso % (Auto) 0.2, Absolute Neuts (auto) 10.5 H, Absolute Lymphs (auto) 0.73 L, Nucleated RBC % 0 03/11/19 06:06: Sodium 139, Potassium 4.1, Chloride 104, Carbon Dioxide 25.0, Anion Gap 10, BUN 18, Creatinine 3.16 H, Estim Creat Clear Calc 17.32, Est GFR (MDRD) Af Amer 21 L, Est GFR (MDRD) Non-Af 17 L, BUN/Creatinine Ratio 5.7 L, Glucose 111 H, Calcium 8.2 L 03/11/19 06:47: POC Glucose 100 Current Medications Bupropion HCl (Wellbutrin Xl) 300 mg PO DAILY [facility] Last Admin: 03/11/19 09:40 Dose: 300 mg Documented by: Dextrose (D50w Syringe) 0 gm IV X1 PRN; Protocol PRN Reason: Hypoglycemia Docusate Sodium (Colace) 100 mg PO BID [facility] Last Admin: 03/11/19 09:38 Dose: 100 mg Documented by: Ergocalciferol (Vitamin D) 50,000 unit PO We@0800 [facility] Last Admin: 03/11/19 09:40 Dose: 50,000 unit Documented by: Furosemide (Lasix) 40 mg PO DAILY [facility] Last Admin: 03/10/19 09:53 Dose: Not Given Documented by: Glucagon () 1 mg IM .X1 PRN PRN Reason: Hypoglycemia Heparin Sodium (Porcine) (Heparin Na) 5,000 unit SC Q12 [facility] Last Admin: 03/11/19 09:38 Dose: 5,000 unit Documented by: Hydromorphone HCl (Dilaudid Inj) 0.5 mg IV Q4H PRN PRN PRN Reason: Pain Score 1-10/10 Levofloxacin (Levaquin Iv) 250 mg in 50 mls @ 50 mls/hr IV Q48H [facility] Nortriptyline HCl (Pamelor) 25 mg PO QHS [facility] Last Admin: 03/10/19 22:50 Dose: Not Given Documented by: Nutritional Formula (Nepro Carb Steady) 120 ml PO 4X/DAY [facility] Last Admin: 03/11/19 09:34 Dose: 120 ml Documented by: Ondansetron HCl (Zofran Odt) 4 mg PO Q6H PRN PRN Reason: NAUSEA/VOMITING Last Admin: 03/11/19 09:55 Dose: 4 mg Documented by: Oxycodone HCl (Oxyir) 5 mg PO Q4H PRN PRN PRN Reason: Pain Score 6-10/10 Last Admin: 03/11/19 09:55 Dose: 5 mg Documented by: Polyethylene Glycol (Miralax) 17 gm PO DAILY [facility] Last Admin: 03/11/19 09:39 Dose: Not Given Documented by: Pregabalin (Lyrica) 50 mg PO DAILY [facility] Last Admin: 03/11/19 09:38 Dose: 50 mg Documented by: Sodium Chloride () 10 - 40 ml IV UD PRN PRN Reason: SALINE FLUSH Last Admin: 03/10/19 19:01 Dose: 10 ml Documented by: Sodium Hypochlorite (Dakins Solution 0.25% (1/2 Strength)) 1 applic TOPICAL BID [facility]; Protocol Last Admin: 03/11/19 09:59 Dose: 1 applicatio Documented by: Venlafaxine HCl (Effexor Xr) 75 mg PO DAILY [facility] Last Admin: 03/11/19 09:39 Dose: 75 mg Documented by: Medical Necessity - Tobacco Use Smoking Status: Never smoker Tobacco Use: Non-smoker Assessment/Plan All Active Problems (Last Reviewed 02/12/19 @ 20:40 by Virgil Murray DO) Problem with dialysis access (Acute) Encephalopathy acute (Acute) Necrotizing soft tissue infection (Acute) Open wound of both lower extremities with complication (Acute) Calciphylaxis (Acute) Lower extremity weakness (Acute) Generalized weakness (Acute) Syncope (Acute) I am following this patient in conjunction with Dr. Patricia S/p removal of peritoneal dialysis catheter Incisions are healing nicely Remove op-sites in 3 days We will sign off at this time. If needed please reconsult Thank you for allowing us to participate in this patient's care. Code Visit Inpatient E&M: 08623 Subs Hosp L1
--- NOTE | 2019-03-11 10:39 | PN_ITS ---
Patient Problems: Active and Suspected Problems (Last Reviewed 02/12/19 @ 20:40 by Virgil Murray DO) Problem with dialysis access (Acute) Reason for Visit: Infected leg wounds. Subjective: Still with pain in legs. + Nausea. Vitals/I&O's: Vital Signs Temp Pulse Resp BP Pulse Ox 36.7 C 110 H 12 97/43 L 98 03/11/19 08:35 03/11/19 08:43 03/11/19 08:35 03/11/19 08:35 03/11/19 08:35 Oxygen Flow Rate (L/min) 2 Oxygen Delivery Method Room Air Weight: 107.3 kg Body Mass Index (BMI) 43.7 Finger Stick Blood Glucose 92 Intake and Output for Last 24 Hours 03/09/19 03/10/19 03/11/19 23:59 23:59 23:59 Intake Total 310.42 / 310.42 320 / 320 50 / 50 Output Total 700 / 700 Balance 310.42 / 310.42 -380 / -380 50 / 50 General: Alert, Cooperative, No apparent distress HEENT: Atraumatic, Normocephalic Oral: Moist Mucosa, No Gingival or Mucosal Lesions/ Ulcerations Neck: No Nodes, Trachea Midline Lungs: Clear to auscultation, Normal air movement, No rhonchi, No wheeze, No rales Cardiovascular: Regular rate, Regular Rhythm, Normal S1, Normal S2, No murmurs Abdomen: Bowel Sounds Present, Soft, Non Tender, Non-Distended Extremities: No edema, No Calf Tenderness Skin: - - large wounds on bilateral legs anteriorly. dark rim of tissue around each's border. packing in place--did not remove. Psych/Mental Status: Appropriate, Flat Affect Microbiology Past 72 Hours 03/09/19 14:45 Wound - Leg, Right Wound Culture - Final Actinomyces meyeri 03/09/19 14:45 Tissue Ulcer - Leg Gram Stain - Final 03/09/19 14:45 Tissue Ulcer - Leg Wound Culture - Final Actinomyces meyeri Laboratory Results 03/09/19 14:40: Serum , Qual NEGATIVE 03/10/19 10:58: POC Glucose 63 L 03/10/19 12:06: POC Glucose 57 L 03/10/19 12:40: Glucose 64 L 03/10/19 16:00: POC Glucose 46 L 03/10/19 16:31: POC Glucose 59 L 03/10/19 17:51: POC Glucose 92 03/10/19 22:40: POC Glucose 153 H 03/11/19 06:06: WBC 12.4 H, RBC 2.95 L, Hgb 7.1 L, Hct 22.6 L, MCV 76.6 L, MCH 24.1 L, MCHC 31.4 L, RDW Std Deviation 51.4 H, RDW Coeff of Lu 18.7 H, Plt Count 168, MPV 9.2, Immature Gran % (Auto) 1.800 H, Neut % (Auto) 84.4 H, Lymph % (Auto) 5.9 L, [place] % (Auto) 7.4, Eos % (Auto) 0.3, Baso % (Auto) 0.2, Absolute Neuts (auto) 10.5 H, Absolute Lymphs (auto) 0.73 L, Nucleated RBC % 0 03/11/19 06:06: Sodium 139, Potassium 4.1, Chloride 104, Carbon Dioxide 25.0, Anion Gap 10, BUN 18, Creatinine 3.16 H, Estim Creat Clear Calc 17.32, Est GFR (MDRD) Af Amer 21 L, Est GFR (MDRD) Non-Af 17 L, BUN/Creatinine Ratio 5.7 L, Glucose 111 H, Calcium 8.2 L 03/11/19 06:47: POC Glucose 100 Current Medications Bupropion HCl (Wellbutrin Xl) 300 mg PO DAILY [facility] Last Admin: 03/11/19 09:40 Dose: 300 mg Documented by: Calamine/Phenol (Calmoseptine Ointment) 1 applic TOPICAL BID [facility]; Protocol Docusate Sodium (Colace) 100 mg PO BID [facility] Last Admin: 03/11/19 09:38 Dose: 100 mg Documented by: Ergocalciferol (Vitamin D) 50,000 unit PO We@0800 [facility] Last Admin: 03/11/19 09:40 Dose: 50,000 unit Documented by: Furosemide (Lasix) 40 mg PO DAILY [facility] Last Admin: 03/10/19 09:53 Dose: Not Given Documented by: Glucagon () 1 mg IM .X1 PRN PRN Reason: Hypoglycemia Heparin Sodium (Porcine) (Heparin Na) 5,000 unit SC Q12 [facility] Last Admin: 03/11/19 09:38 Dose: 5,000 unit Documented by: Hydromorphone HCl (Dilaudid Inj) 0.5 mg IV Q4H PRN PRN PRN Reason: Pain Score 1-10/10 Levofloxacin (Levaquin Iv) 250 mg in 50 mls @ 50 mls/hr IV Q48H [facility] Dextrose (Dextrose 10%-Water) 250 mls @ 999 mls/hr IV X1 PRN; Protocol PRN Reason: HYPOGLYCEMIA Nortriptyline HCl (Pamelor) 25 mg PO QHS [facility] Last Admin: 03/10/19 22:50 Dose: Not Given Documented by: Nutritional Formula (Nepro Carb Steady) 120 ml PO 4X/DAY [facility] Last Admin: 03/11/19 09:34 Dose: 120 ml Documented by: Ondansetron HCl (Zofran Odt) 4 mg PO Q6H PRN PRN Reason: NAUSEA/VOMITING Last Admin: 03/11/19 09:55 Dose: 4 mg Documented by: Oxycodone HCl (Oxyir) 5 mg PO Q4H PRN PRN PRN Reason: Pain Score 6-10/10 Last Admin: 03/11/19 09:55 Dose: 5 mg Documented by: Polyethylene Glycol (Miralax) 17 gm PO DAILY [facility] Last Admin: 03/11/19 09:39 Dose: Not Given Documented by: Pregabalin (Lyrica) 50 mg PO DAILY [facility] Last Admin: 03/11/19 09:38 Dose: 50 mg Documented by: Sodium Chloride () 10 - 40 ml IV UD PRN PRN Reason: SALINE FLUSH Last Admin: 03/10/19 19:01 Dose: 10 ml Documented by: Sodium Hypochlorite (Dakins Solution 0.25% (1/2 Strength)) 1 applic TOPICAL BID [facility]; Protocol Last Admin: 03/11/19 09:59 Dose: 1 applicatio Documented by: Venlafaxine HCl (Effexor Xr) 75 mg PO DAILY [facility] Last Admin: 03/11/19 09:39 Dose: 75 mg Documented by: STROKE Vital Signs/Narrative: Vital Signs Temp Pulse Resp BP Pulse Ox 03/11/19 08:43 110 H 03/11/19 08:35 36.7 C 95 12 97/43 L 98 Medical Necessity - Tobacco Use Smoking Status: Never smoker Tobacco Use: Non-smoker Assessment/Plan All Active Problems (Last Reviewed 02/12/19 @ 20:40 by Virgil Murray DO) Problem with dialysis access (Acute) Encephalopathy acute (Acute) Necrotizing soft tissue infection (Acute) Open wound of both lower extremities with complication (Acute) Calciphylaxis (Acute) Lower extremity weakness (Acute) Generalized weakness (Acute) Syncope (Acute) 1. infected leg wounds * on levaquin * for repeat debridement on 03/11 * continue wound care * follow up wound cultures. * ID on consult 2. ESRD * on HD * PD catheter removed 03/10 3. DM2 * uncontrolled, hypoglycemic * hopefully can stablize once able to have oral (has been NPO for surgery today) 4. Poor IV access * currently with peripheral in left should * DW Dr. Patricia, who states he will not be involved in her case from a vascular access standpoint, but recognized limited options for IV access * Only viable option would be an IJ or tunnelled PICC. Hopefully, can avoid both 5. VTE proph: SQ heparin 6. Advanced care planning. Spent 15 minutes discussing with patient about her multiple medical issues and that we can continue to treat those, but advised palliative care for help with symptomatic control. She was agreeable to speaking with palliative care. I informed patient that it will change her medical treatment. Overall, I am concerned about the patient's long-term outlook. Unless patient has some dramatic recovery, her life-expectancy could be 6-12 months. Code Visit Inpatient E&M: 53805 Subs Hosp L2 Procedures: 15015 Advncd Care Plan 30 Min
[2019-03-11] MEDS: Epoetin Alfa epbx 10,000 UNITS/ML 10000 UNIT SC (11:09)
[2019-03-11 11:21] LABS: Bedside Glucose 112 mg/dL (70-110)
--- NOTE | 2019-03-11 11:53 | CASEMGMT ---
Social Work Note SW in to speak with pt. SW updated pt that [facility] in [place] does do on-site dialysis. Pt agreeable to referral being sent. SW faxed referral. RAIZA spoke with wound RN who states pt will not have wound vac at discharge and will only have Daken's dressing changes. SW waiting to hear from [facility]. Plan: [facility] pending acceptance Josefina Rose WEAPONS OFFICER, GLOVE STITCHER
[2019-03-11 14:28] VITALS: BP 90/41; PULSE 95; RESP 12; TEMP 36.6; O2SAT 98
--- NOTE | 2019-03-11 14:42 | CASEMGMT ---
Addendum entered by Josefina Rose 03/11/19 15:42: RAIZA received call from AMINTA Saini at [facility] stating she has 2-step TB Test that she is able to fax over. RAIZA provided fax number. Original Note: Social Work Note RAIZA spoke with Margie at [facility]. Margie states [facility] sent referral last week and she accepted pt last week and is able to accept pt again. RAIZA updated Margie that pt is having surgery with Dr. Cuevas, possibly tomorrow, and then will have Daken dressing changes. RAIZA updated Margie that currently pt is on Saturday, , Saturday dialysis schedule. Margie states that they only do Saturday-Saturday dialysis schedule. RAIZA updated Margie that pt could get dialysis at [facility] Saturday and the discharge to [facility] Saturday and then begin dialysis on Saturday and their facility. Margie states that will work for pt. Margie states that she called [facility] and most recent HEP B test was February 03 and most recent TB test was over a year ago. Margie states she will need new HEP B test and TB test to schedule dialysis. RAIZA spoke with RN CHAPARRO who states SNF always give TB test on admissions to SNF. RAIZA placed a call to Kimberli at [facility] and asked if they have recent test that this worker could send results to [facility]. RAIZA waiting for call back. Charge Nurse updated that HEP B test will need to be ordered. Plan: [facility] Josefina Rose OIL EXPELLER OPERATOR, ADOLESCENT SPECIALIST
--- NOTE | 2019-03-11 15:43 | PCM.HP.ID ---
Problem List (1) Necrotizing soft tissue infection Status: Acute (2) Open wound of both lower extremities with complication Status: Acute Reason for Consult: BLE infection Consulted by: Dr. Murray History of Present Illness: The patient is a 43 year old F with ESRD, presented with several weeks of worsening BLE and abd wounds, previous concern for calciphylaxis. Had necrosis, severe pain. Had I&D done. Has been on levaquin, not feeling much better. 2 of 2 wound cxs now showing actinomyces. Next surgery planned for 03/13. Full ROS performed and neg except as noted above. - Medical History Past Medical History (Chronic Problems): Chronic Problems (Last Reviewed 02/12/19 @ 20:40 by Virgil Murray, ) Ulcer of right thigh (Chronic) Ulcer of left thigh (Chronic) Skin necrosis (Chronic) bilateral thighs Patient on peritoneal dialysis (Chronic) ESRD (end stage renal disease) (Chronic) Debility (Chronic) Gastroparesis (Chronic) Orthostatic hypotension (Chronic) Chronic renal failure, stage 4 (severe) (Chronic) Morbid obesity (Chronic) HTN (hypertension) (Chronic) Bilateral hydronephrosis (Chronic) Iron deficiency anemia (Chronic) Type II diabetes mellitus (Chronic) Coronary artery disease (Chronic) Chronic low back pain (Chronic) Hydroureter (Chronic) Bladder outlet obstruction (Chronic) Allergies/Adverse Reactions: Allergies ciprofloxacin [From Cipro] Adverse Reaction (Verified 03/09/19 13:53) Vomiting contrast dye Allergy (Severe, Uncoded 03/09/19 13:53) Anaphylaxis Home Medications: Ambulatory Orders Medication Instructions Recorded Ergocalciferol [Vitamin D] 50,000 unit PO WE 04/18/17 Aspirin E.C. [Ecotrin] 81 mg PO DAILY@0800 07/15/18 Bupropion HCl [Bupropion Xl] 300 mg PO DAILY 09/22/18 Ondansetron [Zofran Odt] 4 mg PO Q8H PRN PRN #10 tab 02/12/19 Oxycodone HCl/Acetaminophen 1 ea PO Q6H PRN PRN 02/12/19 [Percocet 5-325 mg Tablet] Docusate Sodium [Colace] 100 mg PO BID cap 02/23/19 Nepro with Carbsteady [Nepro Carb 120 ml PO TIDCM liquid 02/23/19 Steady] Polyethylene Glycol 3350 [Miralax] 17 gm PO DAILY packet 02/23/19 Furosemide 40 mg PO DAILY 02/25/19 Nortriptyline HCl [Pamelor] 25 mg PO QHS #0 02/27/19 Pregabalin [Lyrica] 50 mg PO DAILY #0 02/27/19 Nystatin [Nystop] 60 gm TP BID 03/09/19 Venlafaxine HCl [Venlafaxine HCl 75 mg PO DAILY 03/09/19 ER] - Social History Tobacco Use: non-smoker Vital Signs Temp Pulse Resp BP Pulse Ox 97.8 F 95 12 90/41 L 98 03/11/19 14:28 03/11/19 14:28 03/11/19 14:28 03/11/19 14:28 03/11/19 14:28 Oxygen Flow Rate (L/min) 2 Oxygen Delivery Method Room Air Weight: 107.3 kg Body Mass Index (BMI) 43.7 Finger Stick Blood Glucose 92 Microbiology Past 72 Hours 03/09/19 14:45 Gram Stain - Final Wound - Leg, Right Wound Culture - Final Actinomyces meyeri 03/09/19 14:45 Gram Stain - Final Tissue Ulcer - Leg Wound Culture - Final Actinomyces meyeri Laboratory Tests Past 24 Hrs 03/11/19 03/11/19 06:06 06:06 WBC 12.4 H RBC 2.95 L Hgb 7.1 L Hct 22.6 L MCV 76.6 L MCH 24.1 L MCHC 31.4 L RDW Std Deviation 51.4 H RDW Coeff of Lu 18.7 H Plt Count 168 MPV 9.2 Immature Gran % (Auto) 1.800 H Neut % (Auto) 84.4 H Lymph % (Auto) 5.9 L [place] % (Auto) 7.4 Eos % (Auto) 0.3 Baso % (Auto) 0.2 Absolute Neuts (auto) 10.5 H Absolute Lymphs (auto) 0.73 L Nucleated RBC % 0 Sodium 139 Potassium 4.1 Chloride 104 Carbon Dioxide 25.0 Anion Gap 10 BUN 18 Creatinine 3.16 H Estim Creat Clear Calc 17.32 Est GFR (MDRD) Af Amer 21 L Est GFR (MDRD) Non-Af 17 L BUN/Creatinine Ratio 5.7 L Glucose 111 H Calcium 8.2 L - Other Studies Radiology: [] reviewed Other Studies: [] Route of nutrition/ use of supplements: [] Nutritional Intake: [] IV Site: [] Ross Catheter: [] - Physical Exam General: Alert, Oriented x3, Cooperative, No apparent distress HEENT: Atraumatic, PERRLA, EOMI Neck: Supple, No Nodes Lungs: Clear to auscultation, Normal air movement Cardiovascular: Regular rate, Regular Rhythm Abdomen: Soft, Non Tender, Non-Distended, Obese Extremities: Edema Skin: Ulcer/ Wound - reviewed photos of wounds IV Site: Central Line, without redness Musculoskeletal: No Tenderness to Palpation of Joints or Extremities Neurological: Cranial nerves II-XII grossly intact - Assessment/Plan Antibiotics: [] Assessment/Plan: [] Active and Suspected Problems (Last Reviewed 02/12/19 @ 20:40 by Virgil Murray DO) Problem with dialysis access (Acute) Actinomyces infected wounds with ESRD - she has been on levaquin. Has lost iv access. Limited options based on ESRD, lack of access, and susceptibilities of actino. Ideally would use iv PCN or ampicillin. For now, will have to use IM ceftriaxone. Will follow, thank you, d/w nursing and Dr. Murray.
[2019-03-11 16:16] LABS: Bedside Glucose 111 mg/dL (70-110)
--- NOTE | 2019-03-11 16:21 | PCM.PN.REN ---
Patient Problems: Active and Suspected Problems (Last Reviewed 02/12/19 @ 20:40 by Virgil Murray DO) Problem with dialysis access (Acute) Subjective: HD yesterday, signed off 30 min early due to pain. Hemodialysis tomorrow. PD catheter removed. Debridement rescheduled for later date. ID consulted for wound infection. Lost iv access. - Physical Exam Vitals/I&O's: Vital Signs Temp Pulse Resp BP Pulse Ox 97.8 F 95 12 90/41 L 98 03/11/19 14:28 03/11/19 14:28 03/11/19 14:28 03/11/19 14:28 03/11/19 14:28 Oxygen Flow Rate (L/min) 2 Oxygen Delivery Method Room Air Weight: 107.3 kg Body Mass Index (BMI) 43.7 Finger Stick Blood Glucose 92 Intake and Output for Last 24 Hours 03/09/19 03/10/19 03/11/19 23:59 23:59 23:59 Intake Total 310.42 / 310.42 320 / 320 150 / 150 Output Total 700 / 700 0 / 0 Balance 310.42 / 310.42 -380 / -380 150 / 150 General: Alert, Oriented x3, Cooperative, No apparent distress Lungs: Clear to auscultation Microbiology Past 72 Hours 03/09/19 14:45 Wound - Leg, Right Gram Stain - Final 03/09/19 14:45 Wound - Leg, Right Wound Culture - Final Actinomyces meyeri 03/09/19 14:45 Tissue Ulcer - Leg Gram Stain - Final 03/09/19 14:45 Tissue Ulcer - Leg Wound Culture - Final Actinomyces meyeri Laboratory Results 03/10/19 10:58: POC Glucose 63 L 03/10/19 12:06: POC Glucose 57 L 03/10/19 16:31: POC Glucose 59 L 03/10/19 17:51: POC Glucose 92 03/10/19 22:40: POC Glucose 153 H 03/11/19 06:06: WBC 12.4 H, RBC 2.95 L, Hgb 7.1 L, Hct 22.6 L, MCV 76.6 L, MCH 24.1 L, MCHC 31.4 L, RDW Std Deviation 51.4 H, RDW Coeff of Lu 18.7 H, Plt Count 168, MPV 9.2, Immature Gran % (Auto) 1.800 H, Neut % (Auto) 84.4 H, Lymph % (Auto) 5.9 L, [place] % (Auto) 7.4, Eos % (Auto) 0.3, Baso % (Auto) 0.2, Absolute Neuts (auto) 10.5 H, Absolute Lymphs (auto) 0.73 L, Nucleated RBC % 0 03/11/19 06:06: Sodium 139, Potassium 4.1, Chloride 104, Carbon Dioxide 25.0, Anion Gap 10, BUN 18, Creatinine 3.16 H, Estim Creat Clear Calc 17.32, Est GFR (MDRD) Af Amer 21 L, Est GFR (MDRD) Non-Af 17 L, BUN/Creatinine Ratio 5.7 L, Glucose 111 H, Calcium 8.2 L 03/11/19 06:47: POC Glucose 100 03/11/19 11:13: POC Glucose 112 H 03/11/19 16:09: POC Glucose 111 H Current Medications Bupropion HCl (Wellbutrin Xl) 300 mg PO DAILY [facility] Last Admin: 03/11/19 09:40 Dose: 300 mg Documented by: Calamine/Phenol (Calmoseptine Ointment) 1 applic TOPICAL BID [facility]; Protocol Ceftriaxone Sodium (Rocephin) 1 gm IM Q24 [facility] Docusate Sodium (Colace) 100 mg PO BID [facility] Last Admin: 03/11/19 09:38 Dose: 100 mg Documented by: Ergocalciferol (Vitamin D) 50,000 unit PO We@0800 [facility] Last Admin: 03/11/19 09:40 Dose: 50,000 unit Documented by: Furosemide (Lasix) 40 mg PO DAILY [facility] Last Admin: 03/11/19 10:48 Dose: Not Given Documented by: Glucagon () 1 mg IM .X1 PRN PRN Reason: Hypoglycemia Heparin Sodium (Porcine) (Heparin Na) 5,000 unit SC Q12 [facility] Last Admin: 03/11/19 09:38 Dose: 5,000 unit Documented by: Hydromorphone HCl (Dilaudid Inj) 0.5 mg IV Q4H PRN PRN PRN Reason: Pain Score 1-10/10 Levofloxacin (Levaquin Iv) 250 mg in 50 mls @ 50 mls/hr IV Q48H [facility] Dextrose (Dextrose 10%-Water) 250 mls @ 999 mls/hr IV X1 PRN; Protocol PRN Reason: HYPOGLYCEMIA Nortriptyline HCl (Pamelor) 25 mg PO QHS [facility] Last Admin: 03/10/19 22:50 Dose: Not Given Documented by: Nutritional Formula (Nepro Carb Steady) 120 ml PO 4X/DAY [facility] Last Admin: 03/11/19 11:32 Dose: Not Given Documented by: Ondansetron HCl (Zofran Odt) 4 mg PO Q6H PRN PRN Reason: NAUSEA/VOMITING Last Admin: 03/11/19 09:55 Dose: 4 mg Documented by: Oxycodone HCl (Oxyir) 5 mg PO Q4H PRN PRN PRN Reason: Pain Score 6-10/10 Last Admin: 03/11/19 09:55 Dose: 5 mg Documented by: Polyethylene Glycol (Miralax) 17 gm PO DAILY [facility] Last Admin: 03/11/19 09:39 Dose: Not Given Documented by: Pregabalin (Lyrica) 50 mg PO DAILY [facility] Last Admin: 03/11/19 09:38 Dose: 50 mg Documented by: Sodium Chloride () 10 - 40 ml IV UD PRN PRN Reason: SALINE FLUSH Last Admin: 03/10/19 19:01 Dose: 10 ml Documented by: Sodium Hypochlorite (Dakins Solution 0.25% (1/2 Strength)) 1 applic TOPICAL BID [facility]; Protocol Last Admin: 03/11/19 09:59 Dose: 1 applicatio Documented by: Venlafaxine HCl (Effexor Xr) 75 mg PO DAILY [facility] Last Admin: 03/11/19 09:39 Dose: 75 mg Documented by: Medical Necessity - Tobacco Use Smoking Status: Never smoker Tobacco Use: Non-smoker Assessment/Plan All Active Problems (Last Reviewed 02/12/19 @ 20:40 by Virgil Murray DO) Problem with dialysis access (Acute) Encephalopathy acute (Acute) Necrotizing soft tissue infection (Acute) Open wound of both lower extremities with complication (Acute) Calciphylaxis (Acute) Lower extremity weakness (Acute) Generalized weakness (Acute) Syncope (Acute) 1. ESRD HD TTS with tunneled dialysis catheter. Hx steal sydrome with ligation of AVF. Pt with nonfunctioning PD catheter sp removal yesterday. Discharge to [facility] when medically stable 2. Anemia VIVIAN, prbc with dialysis 3. Obstructive uropathy 4. Morbid obesity 5. Severe debility. ECF placement with dialysis incenter. 6. Wound infection s/p debridement prior hospitalization. Scheduled for debridement per Dr. Cuevas. 7. DMT2 primary service mgmt
[2019-03-11 16:39] VITALS: BP 92/50; PULSE 92; RESP 12; TEMP 36.8; O2SAT 100
[2019-03-11] MEDS: Ceftriaxone 1 GM Vial IM (16:43)
[2019-03-11] MEDS: 0.9% Saline Lock 10 ML Syringe IV (16:44)
--- NOTE | 2019-03-11 16:52 | NURSING ---
Spoke with Rom in blood bank- notified of transfusion to be given tomorrow with dialysis and that pt has no IV access. Understanding verbalized and states blood will be ready when needed tomorrow.
[2019-03-11 21:15] VITALS: BP 94/40; PULSE 94; RESP 18; TEMP 36.7; O2SAT 99
--- NOTE | 2019-03-11 21:22 | NURSING ---
Patient refused to let this RN do dressing changes at this time, will attempt later.
[2019-03-11] MEDS: Menthol/Lanolin/Calamine/Znox 113 GM Tube 1 APPLIC TOPICAL (21:24)
[2019-03-11 21:25] LABS: Bedside Glucose 100 mg/dL (70-110)
[2019-03-12] VITALS (10 sets, daily range): BP systolic 84–159; BP diastolic 37–93; PULSE 68–111; RESP 16–18; TEMP 36.7–37.6; O2SAT 92–100
[2019-03-12] MEDS: DAKIN'S SOL HALF STRENGTH (=0.25%) 1 APPLIC TOPICAL ×3 (04:25→22:12)
--- NOTE | 2019-03-12 04:29 | NURSING ---
Patient allowed this RN to do dressing changes to bilateral thighs and abd folds at this time.
[2019-03-12 05:44] LABS: Absolute Lymphocyte Count 0.63 X10^3/uL (0.83-4.51); Absolute Neutrophil Count 10.1 X10^3/uL (2.0-7.7); Basophil# 0.04 X10^3/uL; Basophil% 0.3 % (0-1); Eosinophil# 0.08 X10^3/uL; Eosinophils% 0.7 % (0-5); Hematocrit 22.4 % (37-47); Lymphocyte # 0.63 X10^3/ul (4.0); Lymphocyte % 5.3 % (19-41); Mean Corp Hgb Conc 31.3 g/dL (32-36); Mean Corpuscular Hgb 24.4 pg (27.0-32.0); Mean Platelet Vol. 9.2 fl (6.2-12.0); Monocyte# 0.74 X10^3/uL; Monocyte% 6.3 % (0-10); NRBC Flagged by Analyzer 0 % (0-5); Neutrophil # 10.05 X10^3/uL (2.7-7.7); Neutrophil % 85.2 % (47-70); Platelet Count 177 K/mm3 (150-450); RBC Distribution Width CV 18.8 % (11.6-14.6); RBC Distribution Width SD 53.2 fl (35.1-43.9); Red Blood Count 2.87 M/mm3 (4.2-5.4); White Blood Count 11.8 K/mm3 (4.4-11.0)
[2019-03-12 06:41] LABS: Bedside Glucose 118 mg/dL (70-110)
[2019-03-12 06:46] LABS: Anion Gap 11 (5-15); BUN 24 mg/dL (7-18); BUN/Creat Ratio 5.9 RATIO (10-20); Calcium,Total 8.1 mg/dL (8.5-10.1); Chloride 105 mmol/L (98-107); Creatinine, Serum 4.09 mg/dL (0.55-1.02); EST Glomerular Filtration Rate 13 mL/min (>60); Est Glom Filt Rate - Afr Amer 15 mL/min (>60); Estimated Creatinine Clearance 13.38 ml/min; Glucose 121 mg/dL (74-106); Potassium 4.3 mmol/L (3.5-5.1); Sodium Level 141 mmol/L (136-145)
[2019-03-12] MEDS: Menthol/Lanolin/Calamine/Znox 113 GM Tube 1 APPLIC TOPICAL ×2 (09:19→22:12)
[2019-03-12] MEDS: Docusate Sodium 100 MG Capsule PO ×2 (09:20→22:13)
[2019-03-12] MEDS: Heparin Injection (Vial) 5,000 UNIT/ML VIAL 5000 UNIT SC ×2 (09:21→22:14)
[2019-03-12] MEDS: Polyethylene Glycol 3350 17 GM PACKET PO (09:21)
[2019-03-12] MEDS: Venlafaxine XR 75 MG Capsule PO (09:21)
[2019-03-12] MEDS: buPROPion (XL) 300 MG TABLET.XL PO (09:22)
[2019-03-12] MEDS: Furosemide 40 MG Tablet PO (09:22)
[2019-03-12] MEDS: Nepro Liquid 120 ML LIQUID PO (09:32)
[2019-03-12] MEDS: Pregabalin 50 MG Capsule PO (09:35)
--- NOTE | 2019-03-12 09:40 | CASEMGMT ---
Social Work Note SW received TB results from [facility]. SW faxed results to [facility]. SW spoke with RN who states hep B was completed and results are pending. Josefina Rose FLASK PUSHER, MANAGER QUALITY IMPROVEMENT
--- NOTE | 2019-03-12 09:41 | PN_ITS ---
Patient Problems: Active and Suspected Problems (Last Reviewed 02/12/19 @ 20:40 by Virgil Murray DO) Problem with dialysis access (Acute) Reason for Visit: infected leg wounds Subjective: still with pain in leg wounds. Vitals/I&O's: Vital Signs Temp Pulse Resp BP Pulse Ox 36.7 C 92 16 122/59 H 98 03/12/19 04:00 03/12/19 04:00 03/12/19 04:00 03/12/19 04:00 03/12/19 04:00 Oxygen Flow Rate (L/min) 2 Oxygen Delivery Method Room Air Weight: 106 kg Body Mass Index (BMI) 43.7 Finger Stick Blood Glucose 92 Intake and Output for Last 24 Hours 03/10/19 03/11/19 03/12/19 23:59 23:59 23:59 Intake Total 320 / 320 300 / 300 Output Total 700 / 700 0 / 0 Balance -380 / -380 300 / 300 General: - - groggy. awakes easily, however. HEENT: Atraumatic, Normocephalic Oral: Moist Mucosa, No Gingival or Mucosal Lesions/ Ulcerations Neck: No Nodes, Trachea Midline Lungs: Clear to auscultation, Normal air movement, No rhonchi, No wheeze, No rales Cardiovascular: Regular rate, Regular Rhythm, Normal S1, Normal S2, No murmurs Abdomen: Bowel Sounds Present, Soft, Non Tender, Non-Distended, No Hepato- splenomegaly Extremities: No edema Skin: - - Large wounds on bilateral anterior legs. Surrounded by necrotic tissue on the margins. Packing in place, did not remove. Psych/Mental Status: Appropriate, Flat Affect Microbiology Past 72 Hours 03/09/19 14:45 Wound - Leg, Right Gram Stain - Final 03/09/19 14:45 Wound - Leg, Right Wound Culture - Final Actinomyces meyeri 03/09/19 14:45 Tissue Ulcer - Leg Gram Stain - Final 03/09/19 14:45 Tissue Ulcer - Leg Wound Culture - Final Actinomyces meyeri Laboratory Results 03/11/19 11:13: POC Glucose 112 H 03/11/19 16:09: POC Glucose 111 H 03/11/19 21:19: POC Glucose 100 03/12/19 05:12: WBC 11.8 H, RBC 2.87 L, Hgb 7.0 L, Hct 22.4 L, MCV 78.0 L, MCH 24.4 L, MCHC 31.3 L, RDW Std Deviation 53.2 H, RDW Coeff of Lu 18.8 H, Plt Count 177, MPV 9.2, Immature Gran % (Auto) 2.200 H, Neut % (Auto) 85.2 H, Lymph % (Auto) 5.3 L, [place] % (Auto) 6.3, Eos % (Auto) 0.7, Baso % (Auto) 0.3, Absolute Neuts (auto) 10.1 H, Absolute Lymphs (auto) 0.63 L, Nucleated RBC % 0 03/12/19 05:12: Sodium 141, Potassium 4.3, Chloride 105, Carbon Dioxide 25.0, Anion Gap 11, BUN 24 H, Creatinine 4.09 H, Estim Creat Clear Calc 13.38, Est GFR (MDRD) Af Amer 15 L, Est GFR (MDRD) Non-Af 13 L, BUN/Creatinine Ratio 5.9 L, Glucose 121 H, Calcium 8.1 L 03/12/19 05:12: Hep B Core IgM Ab Pending 03/12/19 05:12: Hep Bs Antigen Pending, Hep Bs Antibody Pending 03/12/19 05:12: Blood Type A POSITIVE, Antibody Screen NEGATIVE, Crossmatch See Detail 03/12/19 06:27: POC Glucose 118 H Current Medications Bupropion HCl (Wellbutrin Xl) 300 mg PO DAILY [facility] Last Admin: 03/12/19 09:22 Dose: 300 mg Documented by: Calamine/Phenol (Calmoseptine Ointment) 1 applic TOPICAL BID [facility]; Protocol Last Admin: 03/12/19 09:19 Dose: 1 applicatio Documented by: Ceftriaxone Sodium (Rocephin) 1 gm IM Q24 [facility] Last Admin: 03/11/19 16:43 Dose: 1 gm Documented by: Docusate Sodium (Colace) 100 mg PO BID [facility] Last Admin: 03/12/19 09:20 Dose: 100 mg Documented by: Ergocalciferol (Vitamin D) 50,000 unit PO We@0800 [facility] Last Admin: 03/11/19 09:40 Dose: 50,000 unit Documented by: Furosemide (Lasix) 40 mg PO DAILY [facility] Last Admin: 03/12/19 09:22 Dose: 40 mg Documented by: Glucagon () 1 mg IM .X1 PRN PRN Reason: Hypoglycemia Heparin Sodium (Porcine) (Heparin Na) 5,000 unit SC Q12 [facility] Last Admin: 03/12/19 09:21 Dose: 5,000 unit Documented by: Hydromorphone HCl (Dilaudid Inj) 0.5 mg IV Q4H PRN PRN PRN Reason: Pain Score 1-10/10 Levofloxacin (Levaquin Iv) 250 mg in 50 mls @ 50 mls/hr IV Q48H [facility] Dextrose (Dextrose 10%-Water) 250 mls @ 999 mls/hr IV X1 PRN; Protocol PRN Reason: HYPOGLYCEMIA Nortriptyline HCl (Pamelor) 25 mg PO QHS [facility] Last Admin: 03/11/19 21:24 Dose: Not Given Documented by: Nutritional Formula (Nepro Carb Steady) 120 ml PO 4X/DAY [facility] Last Admin: 03/12/19 09:32 Dose: 120 ml Documented by: Ondansetron HCl (Zofran Odt) 4 mg PO Q6H PRN PRN Reason: NAUSEA/VOMITING Last Admin: 03/11/19 09:55 Dose: 4 mg Documented by: Oxycodone HCl (Oxyir) 5 mg PO Q4H PRN PRN PRN Reason: Pain Score 6-10/10 Last Admin: 03/11/19 09:55 Dose: 5 mg Documented by: Polyethylene Glycol (Miralax) 17 gm PO DAILY [facility] Last Admin: 03/12/19 09:21 Dose: 17 gm Documented by: Pregabalin (Lyrica) 50 mg PO DAILY [facility] Last Admin: 03/12/19 09:35 Dose: 50 mg Documented by: Sodium Chloride () 10 - 40 ml IV UD PRN PRN Reason: SALINE FLUSH Last Admin: 03/11/19 16:44 Dose: 10 ml Documented by: Sodium Hypochlorite (Dakins Solution 0.25% (1/2 Strength)) 1 applic TOPICAL BID [facility]; Protocol Last Admin: 03/12/19 09:20 Dose: 1 applicatio Documented by: Venlafaxine HCl (Effexor Xr) 75 mg PO DAILY [facility] Last Admin: 03/12/19 09:21 Dose: 75 mg Documented by: Medical Necessity - Tobacco Use Smoking Status: Never smoker Tobacco Use: Non-smoker Assessment/Plan All Active Problems (Last Reviewed 02/12/19 @ 20:40 by Virgil Murray DO) Problem with dialysis access (Acute) Encephalopathy acute (Acute) Necrotizing soft tissue infection (Acute) Open wound of both lower extremities with complication (Acute) Calciphylaxis (Acute) Lower extremity weakness (Acute) Generalized weakness (Acute) Syncope (Acute) 1. infected leg wounds * on levaquin * for repeat debridement on 03/11 * continue wound care * follow up wound cultures. * ID on consult * Pain not adequately alleviated by the patient. Though it is noted by nursing, the patient is very groggy and asking for oxycodone. Given patient's overall poor prognosis and her openness for palliative care (and possible hospice post-[place]), will further optimize pain control. Patient will need to be awake to receive, however. 2. ESRD * on HD * PD catheter removed 03/10 3. DM2 * uncontrolled, hypoglycemic * hopefully can stablize once able to have oral (has been NPO for surgery today) 4. Poor IV access * currently with peripheral in left should * DW Dr. Patricia, who states he will not be involved in her case from a vascular access standpoint, but recognized limited options for IV access * Only viable option would be an IJ or tunnelled PICC. Hopefully, can avoid both 5. VTE proph: SQ heparin 6. Prognosis: poor. Life expectancy 6-12 months, if not less. Code Visit Inpatient E&M: 25626 Subs Hosp L2
[2019-03-12] MEDS: Ceftriaxone 1 GM Vial IM (10:14)
--- NOTE | 2019-03-12 10:18 | PN.ID_ITS ---
Patient Problems: Active and Suspected Problems (Last Reviewed 02/12/19 @ 20:40 by Virgil Murray DO) Problem with dialysis access (Acute) Subjective: Sleepy, feeling ok, no fever. Did not have any issues with IM ceftriaxone. - Physical Exam Vitals/I&O's: Vital Signs Temp Pulse Resp BP Pulse Ox 98.1 F 92 16 122/59 H 98 03/12/19 04:00 03/12/19 04:00 03/12/19 04:00 03/12/19 04:00 03/12/19 04:00 Oxygen Flow Rate (L/min) 2 Oxygen Delivery Method Room Air Weight: 106 kg Body Mass Index (BMI) 43.7 Finger Stick Blood Glucose 92 Intake and Output for Last 24 Hours 03/10/19 03/11/19 03/12/19 23:59 23:59 23:59 Intake Total 320 / 320 300 / 300 Output Total 700 / 700 0 / 0 Balance -380 / -380 300 / 300 General: Cooperative, No apparent distress Lungs: Clear to auscultation, Normal air movement Cardiovascular: Regular rate, Regular Rhythm Abdomen: Soft, Non Tender, Non-Distended Skin: Ulcer/ Wound Microbiology Past 72 Hours 03/09/19 14:45 Wound - Leg, Right Gram Stain - Final 03/09/19 14:45 Wound - Leg, Right Wound Culture - Final Actinomyces meyeri 03/09/19 14:45 Tissue Ulcer - Leg Gram Stain - Final 03/09/19 14:45 Tissue Ulcer - Leg Wound Culture - Final Actinomyces meyeri Laboratory Results 03/11/19 11:13: POC Glucose 112 H 03/11/19 16:09: POC Glucose 111 H 03/11/19 21:19: POC Glucose 100 03/12/19 05:12: WBC 11.8 H, RBC 2.87 L, Hgb 7.0 L, Hct 22.4 L, MCV 78.0 L, MCH 24.4 L, MCHC 31.3 L, RDW Std Deviation 53.2 H, RDW Coeff of Lu 18.8 H, Plt Count 177, MPV 9.2, Immature Gran % (Auto) 2.200 H, Neut % (Auto) 85.2 H, Lymph % (Auto) 5.3 L, [place] % (Auto) 6.3, Eos % (Auto) 0.7, Baso % (Auto) 0.3, Absolute Neuts (auto) 10.1 H, Absolute Lymphs (auto) 0.63 L, Nucleated RBC % 0 03/12/19 05:12: Sodium 141, Potassium 4.3, Chloride 105, Carbon Dioxide 25.0, An ion Gap 11, BUN 24 H, Creatinine 4.09 H, Estim Creat Clear Calc 13.38, Est GFR (MDRD) Af Amer 15 L, Est GFR (MDRD) Non-Af 13 L, BUN/Creatinine Ratio 5.9 L, Glucose 121 H, Calcium 8.1 L 03/12/19 05:12: Hep B Core IgM Ab Pending 03/12/19 05:12: Hep Bs Antigen Pending, Hep Bs Antibody Pending 03/12/19 05:12: Blood Type A POSITIVE, Antibody Screen NEGATIVE, Crossmatch See Detail 03/12/19 06:27: POC Glucose 118 H Current Medications Bupropion HCl (Wellbutrin Xl) 300 mg PO DAILY [facility] Last Admin: 03/12/19 09:22 Dose: 300 mg Documented by: Calamine/Phenol (Calmoseptine Ointment) 1 applic TOPICAL BID [facility]; Protocol Last Admin: 03/12/19 09:19 Dose: 1 applicatio Documented by: Ceftriaxone Sodium (Rocephin) 1 gm IM Q24 [facility] Last Admin: 03/12/19 10:14 Dose: 1 gm Documented by: Docusate Sodium (Colace) 100 mg PO BID [facility] Last Admin: 03/12/19 09:20 Dose: 100 mg Documented by: Ergocalciferol (Vitamin D) 50,000 unit PO We@0800 [facility] Last Admin: 03/11/19 09:40 Dose: 50,000 unit Documented by: Furosemide (Lasix) 40 mg PO DAILY [facility] Last Admin: 03/12/19 09:22 Dose: 40 mg Documented by: Glucagon () 1 mg IM .X1 PRN PRN Reason: Hypoglycemia Heparin Sodium (Porcine) (Heparin Na) 5,000 unit SC Q12 [facility] Last Admin: 03/12/19 09:21 Dose: 5,000 unit Documented by: Hydromorphone HCl (Dilaudid Inj) 0.5 mg IV Q4H PRN PRN PRN Reason: Pain Score 1-10/10 Levofloxacin (Levaquin Iv) 250 mg in 50 mls @ 50 mls/hr IV Q48H [facility] Dextrose (Dextrose 10%-Water) 250 mls @ 999 mls/hr IV X1 PRN; Protocol PRN Reason: HYPOGLYCEMIA Nortriptyline HCl (Pamelor) 25 mg PO QHS [facility] Last Admin: 03/11/19 21:24 Dose: Not Given Documented by: Nutritional Formula (Nepro Carb Steady) 120 ml PO 4X/DAY [facility] Last Admin: 03/12/19 09:32 Dose: 120 ml Documented by: Ondansetron HCl (Zofran Odt) 4 mg PO Q6H PRN PRN Reason: NAUSEA/VOMITING Last Admin: 03/11/19 09:55 Dose: 4 mg Documented by: Oxycodone HCl (Oxyir) 5 mg PO Q4H PRN PRN PRN Reason: Pain Score 4-5/10 Last Admin: 03/11/19 09:55 Dose: 5 mg Documented by: Oxycodone HCl (Oxyir) 10 mg PO Q4H PRN PRN PRN Reason: Pain Score 6-10/10 Polyethylene Glycol (Miralax) 17 gm PO DAILY [facility] Last Admin: 03/12/19 09:21 Dose: 17 gm Documented by: Pregabalin (Lyrica) 50 mg PO DAILY [facility] Last Admin: 03/12/19 09:35 Dose: 50 mg Documented by: Sodium Chloride () 10 - 40 ml IV UD PRN PRN Reason: SALINE FLUSH Last Admin: 03/11/19 16:44 Dose: 10 ml Documented by: Sodium Hypochlorite (Dakins Solution 0.25% (1/2 Strength)) 1 applic TOPICAL BID [facility]; Protocol Last Admin: 03/12/19 09:20 Dose: 1 applicatio Documented by: Venlafaxine HCl (Effexor Xr) 75 mg PO DAILY [facility] Last Admin: 03/12/19 09:21 Dose: 75 mg Documented by: Medical Necessity - Tobacco Use Smoking Status: Never smoker Tobacco Use: Non-smoker Route of nutrition/ use of supplements: [] Nutritional Intake: [] IV Site: [] Ross Catheter: [] - Assessment/Plan Antibiotics: [] Assessment/Plan: [] Active and Suspected Problems (Last Reviewed 02/12/19 @ 20:40 by Virgil Jopperi, DO) Problem with dialysis access (Acute) Actinomyces infected wounds with ESRD - she has been on levaquin. Has lost iv access. Limited options based on ESRD, lack of access, and susceptibilities of actino. For now, will use IM ceftriaxone; she tolerated it well yesterday so will continue. IV doses could be given with HD, but she would still need IM on the non-HD days. Will follow
[2019-03-12 10:21] LABS: Hepatitis B Surface Antibody Non-Reactive; Hepatitis B Surface Antigen Non-Reactive (Nonreactive)
--- NOTE | 2019-03-12 10:21 | CASEMGMT ---
Addendum entered by Josefina Rose 03/12/19 11:34: Per PHQ-9 scoring, pt scored moderate with a score of 10. Original Note: Social Work Note SW completed PHQ-9 with pt. Pt states that she does have history of depression. Pt scored 10 on PHQ-9. Pt states that she currently see's Dr. Blackwell for counseling. Pt states she was going once a week to see Dr. Blackwell but hasn't recently due to current medical problems. Pt states that her parents are awesome and supportive. Pt denied additional needs or concerns at this time. SW did update pt that [facility] able [facility] pt once pt is medically cleared. Pt states understanding, states she will update her parents. Josefina Rose CATEGORY DEVELOPMENT ANALYST, BESSEMER BOTTOM MAKER
--- NOTE | 2019-03-12 11:34 | CASEMGMT ---
Addendum entered by Josefina Rose 03/12/19 15:20: RAIZA placed a call to [facility] and left message for RAIZA Stewart and updated her that pt is agreeable to Palliative Care referral but this worker is not sure which Palliative Care company they use and asked for Pat to make Palliative Care referral once pt arrives to facility. RAIZA also updated Pat that it is sounding like pt may switch to Hospice Care after the Holidays. RAIZA also asked Pat to make psychiatrist referral for pt once she arrives to facility as well. Palliative tool completed for pt. Original Note: Social Work Note RAIZA received message from Jaye at [facility] stating she received TB tests and they are able to use those. Jaye states she still needs the orders for dialysis. RAIZA faxed dialysis orders to [facility]. Plan: [facility] once medically cleared Josefina Rose SPEECH/LANGUAGE THERAPIST, BONING ROOM WORKER
[2019-03-12] MEDS: oxyCODONE 5 MG Tablet 10 MG PO ×3 (14:07→22:14)
[2019-03-12] MEDS: levoFLOXacin IV 250 MG/50 ML BAG 50 MG IV (14:08)
[2019-03-12] MEDS: Heparin 10,000 UNITS/10 ML Vial IV (14:13)
--- NOTE | 2019-03-12 14:16 | PCM.PN.REN ---
Patient Problems: Active and Suspected Problems (Last Reviewed 02/12/19 @ 20:40 by Virgil Murray DO) Problem with dialysis access (Acute) Subjective: seen on dialysis, BP low. Receiving 2u prbc for hgb 7g. Complains of cramping with 1L fluid removal. - Physical Exam Vitals/I&O's: Vital Signs Temp Pulse Resp BP Pulse Ox 98.2 F 76 18 159/64 H 98 03/12/19 12:41 03/12/19 12:41 03/12/19 12:41 03/12/19 12:41 03/12/19 12:41 Oxygen Flow Rate (L/min) 2 Oxygen Delivery Method Room Air Weight: 106 kg Body Mass Index (BMI) 43.7 Finger Stick Blood Glucose 92 Intake and Output for Last 24 Hours 03/10/19 03/11/19 03/12/19 23:59 23:59 23:59 Intake Total 320 / 320 300 / 300 400 / 400 Output Total 700 / 700 0 / 0 Balance -380 / -380 300 / 300 400 / 400 General: Alert, Oriented x3, Cooperative, No apparent distress Lungs: Clear to auscultation Cardiovascular: Regular rate Abdomen: Bowel Sounds Present, Soft, Non Tender, Non-Distended, Obese Extremities: No edema Microbiology Past 72 Hours 03/09/19 14:45 Wound - Leg, Right Gram Stain - Final 03/09/19 14:45 Wound - Leg, Right Wound Culture - Final Actinomyces meyeri 03/09/19 14:45 Tissue Ulcer - Leg Gram Stain - Final 03/09/19 14:45 Tissue Ulcer - Leg Wound Culture - Final Actinomyces meyeri Laboratory Results 03/11/19 16:09: POC Glucose 111 H 03/11/19 21:19: POC Glucose 100 03/12/19 05:12: WBC 11.8 H, RBC 2.87 L, Hgb 7.0 L, Hct 22.4 L, MCV 78.0 L, MCH 24.4 L, MCHC 31.3 L, RDW Std Deviation 53.2 H, RDW Coeff of Lu 18.8 H, Plt Count 177, MPV 9.2, Immature Gran % (Auto) 2.200 H, Neut % (Auto) 85.2 H, Lymph % (Auto) 5.3 L, Cole % (Auto) 6.3, Eos % (Auto) 0.7, Baso % (Auto) 0.3, Absolute Neuts (auto) 10.1 H, Absolute Lymphs (auto) 0.63 L, Nucleated RBC % 0 03/12/19 05:12: Sodium 141, Potassium 4.3, Chloride 105, Carbon Dioxide 25.0, Anion Gap 11, BUN 24 H, Creatinine 4.09 H, Estim Creat Clear Calc 13.38, Est GFR (MDRD) Af Amer 15 L, Est GFR (MDRD) Non-Af 13 L, BUN/Creatinine Ratio 5.9 L, Glucose 121 H, Calcium 8.1 L 03/12/19 05:12: Hep B Core IgM Ab Pending 03/12/19 05:12: Hep Bs Antigen Non-Reactive, Hep Bs Antibody Non-Reactive 03/12/19 05:12: Blood Type A POSITIVE, Antibody Screen NEGATIVE, Crossmatch See Detail 03/12/19 06:27: POC Glucose 118 H Current Medications Bupropion HCl (Wellbutrin Xl) 300 mg PO DAILY [facility] Last Admin: 03/12/19 09:22 Dose: 300 mg Documented by: Calamine/Phenol (Calmoseptine Ointment) 1 applic TOPICAL BID [facility]; Protocol Last Admin: 03/12/19 09:19 Dose: 1 applicatio Documented by: Ceftriaxone Sodium (Rocephin) 1 gm IM Q24 [facility] Last Admin: 03/12/19 10:14 Dose: 1 gm Documented by: Docusate Sodium (Colace) 100 mg PO BID [facility] Last Admin: 03/12/19 09:20 Dose: 100 mg Documented by: Ergocalciferol (Vitamin D) 50,000 unit PO We@0800 [facility] Last Admin: 03/11/19 09:40 Dose: 50,000 unit Documented by: Furosemide (Lasix) 40 mg PO DAILY [facility] Last Admin: 03/12/19 09:22 Dose: 40 mg Documented by: Glucagon () 1 mg IM .X1 PRN PRN Reason: Hypoglycemia Heparin Sodium (Porcine) (Heparin Na) 5,000 unit SC Q12 [facility] Last Admin: 03/12/19 09:21 Dose: 5,000 unit Documented by: Hydromorphone HCl (Dilaudid Inj) 0.5 mg IV Q4H PRN PRN PRN Reason: Pain Score 1-10/10 Levofloxacin (Levaquin Iv) 250 mg in 50 mls @ 50 mls/hr IV Q48H [facility] Last Admin: 03/12/19 14:08 Dose: 50 mls/hr Documented by: Dextrose (Dextrose 10%-Water) 250 mls @ 999 mls/hr IV X1 PRN; Protocol PRN Reason: HYPOGLYCEMIA Nortriptyline HCl (Pamelor) 25 mg PO QHS [facility] Last Admin: 03/11/19 21:24 Dose: Not Given Documented by: Nutritional Formula (Nepro Carb Steady) 120 ml PO 4X/DAY [facility] Last Admin: 03/12/19 09:32 Dose: 120 ml Documented by: Ondansetron HCl (Zofran Odt) 4 mg PO Q6H PRN PRN Reason: NAUSEA/VOMITING Last Admin: 03/11/19 09:55 Dose: 4 mg Documented by: Oxycodone HCl (Oxyir) 5 mg PO Q4H PRN PRN PRN Reason: Pain Score 4-5/10 Last Admin: 03/11/19 09:55 Dose: 5 mg Documented by: Oxycodone HCl (Oxyir) 10 mg PO Q4H PRN PRN PRN Reason: Pain Score 6-10/10 Last Admin: 03/12/19 14:07 Dose: 10 mg Documented by: Polyethylene Glycol (Miralax) 17 gm PO DAILY [facility] Last Admin: 03/12/19 09:21 Dose: 17 gm Documented by: Pregabalin (Lyrica) 50 mg PO DAILY [facility] Last Admin: 03/12/19 09:35 Dose: 50 mg Documented by: Sodium Chloride () 10 - 40 ml IV UD PRN PRN Reason: SALINE FLUSH Last Admin: 03/11/19 16:44 Dose: 10 ml Documented by: Sodium Hypochlorite (Dakins Solution 0.25% (1/2 Strength)) 1 applic TOPICAL BID [facility]; Protocol Last Admin: 03/12/19 09:20 Dose: 1 applicatio Documented by: Venlafaxine HCl (Effexor Xr) 75 mg PO DAILY [facility] Last Admin: 03/12/19 09:21 Dose: 75 mg Documented by: Medical Necessity - Tobacco Use Smoking Status: Never smoker Tobacco Use: Non-smoker Assessment/Plan All Active Problems (Last Reviewed 02/12/19 @ 20:40 by Virgil Murray DO) Problem with dialysis access (Acute) Encephalopathy acute (Acute) Necrotizing soft tissue infection (Acute) Open wound of both lower extremities with complication (Acute) Calciphylaxis (Acute) Lower extremity weakness (Acute) Generalized weakness (Acute) Syncope (Acute) 1. ESRD HD TTS with tunneled dialysis catheter. Seen on dialysis now. fluid removal as tolerated. PD catheter removal due to nonfunctional catheter. 2. Anemia VIVIAN, 2u prbc with dialysis 3. Obstructive uropathy 4. Morbid obesity 5. Severe debility. ECF placement with dialysis incenter. 6. Wound infection s/p debridement prior hospitalization. Scheduled for debridement per Dr. Cuevas. 7. DMT2 primary service mgmt
[2019-03-12 14:31] LABS: Bedside Glucose 96 mg/dL (70-110)
--- NOTE | 2019-03-12 16:02 | DIALYSIS ---
Hemodialysis completed as ordered. D/T lower bp, pt under EDW, and complained of cramping no fluid ended up being removed today except the volume in to include blood and atb's administered during hd tx. CVC ran w/o difficulty. HD CVC closed with heparin to each lumen fill volume. Stable on tx. Dressing D/I. Report to Kendall VILA
[2019-03-12 22:26] LABS: Bedside Glucose 100 mg/dL (70-110)
[2019-03-13] VITALS (12 sets, daily range): BP systolic 100–128; BP diastolic 56–93; PULSE 88–102; RESP 12–18; TEMP 36.2–37.1; O2SAT 96–100; BMI 42.8
[2019-03-13] MEDS: oxyCODONE 5 MG Tablet 10 MG PO (03:41)
[2019-03-13 05:19] LABS: Absolute Neutrophil Count 12.6 X10^3/uL (2.0-7.7); Basophil# 0.06 X10^3/uL; Basophil% 0.4 % (0-1); Eosinophil# 0.03 X10^3/uL; Eosinophils% 0.2 % (0-5); Hematocrit 29.4 % (37-47); Hemoglobin 9.4 g/dL (12.0-15.0); Lymphocyte % 4.7 % (19-41); Mean Corpuscular Hgb 25.4 pg (27.0-32.0); Mean Corpuscular Volume 79.5 fL (81-99); Mean Platelet Vol. 9.3 fl (6.2-12.0); Monocyte# 0.95 X10^3/uL; Monocyte% 6.4 % (0-10); NRBC Flagged by Analyzer 0 % (0-5); Neutrophil # 12.63 X10^3/uL (2.7-7.7); Neutrophil % 85.3 % (47-70); Platelet Count 175 K/mm3 (150-450); RBC Distribution Width CV 17.7 % (11.6-14.6); RBC Distribution Width SD 50.7 fl (35.1-43.9); White Blood Count 14.8 K/mm3 (4.4-11.0)
[2019-03-13 05:41] LABS: Anion Gap 12 (5-15); BUN 12 mg/dL (7-18); BUN/Creat Ratio 4.9 RATIO (10-20); Calcium,Total 8.3 mg/dL (8.5-10.1); Chloride 102 mmol/L (98-107); Creatinine, Serum 2.47 mg/dL (0.55-1.02); EST Glomerular Filtration Rate 23 mL/min (>60); Est Glom Filt Rate - Afr Amer 27 mL/min (>60); Estimated Creatinine Clearance 22.16 ml/min; Glucose 119 mg/dL (74-106); Potassium 3.6 mmol/L (3.5-5.1); Sodium Level 139 mmol/L (136-145)
[2019-03-13 06:26] LABS: Bedside Glucose 105 mg/dL (70-110)
[2019-03-13 07:36] LABS: International Normalized Ratio 1.6
--- NOTE | 2019-03-13 08:54 | PCM.PN.HOSP ---
Patient Problems: Active and Suspected Problems (Last Reviewed 02/12/19 @ 20:40 by Virgil Murray DO) Problem with dialysis access (Acute) Reason for Visit: still with pain in her legs, but current pain-control regimen helping some. Vitals/I&O's: Vital Signs Temp Pulse Resp BP Pulse Ox 36.9 C 96 16 112/93 H 96 03/13/19 08:14 03/13/19 08:14 03/13/19 08:14 03/13/19 08:14 03/13/19 08:14 Oxygen Flow Rate (L/min) 2 Oxygen Delivery Method Room Air Weight: 105.7 kg Body Mass Index (BMI) 42.8 Finger Stick Blood Glucose 92 Intake and Output for Last 24 Hours 03/11/19 03/12/19 03/13/19 23:59 23:59 23:59 Intake Total 300 / 300 450 / 450 Output Total 0 / 0 0 / 0 Balance 300 / 300 450 / 450 General: Alert, No apparent distress HEENT: Atraumatic, Normocephalic Oral: Moist Mucosa, No Gingival or Mucosal Lesions/ Ulcerations Extremities: No edema Skin: - - leg wounds bandaged--did not remove. Psych/Mental Status: Appropriate, Flat Affect Microbiology Past 72 Hours 03/09/19 14:45 Wound - Leg, Right Gram Stain - Final 03/09/19 14:45 Wound - Leg, Right Wound Culture - Final Actinomyces meyeri 03/09/19 14:45 Tissue Ulcer - Leg Gram Stain - Final 03/09/19 14:45 Tissue Ulcer - Leg Wound Culture - Final Actinomyces meyeri Laboratory Results 03/12/19 05:12: Hep Bs Antigen Non-Reactive, Hep Bs Antibody Non-Reactive 03/12/19 05:12: Blood Type A POSITIVE, Antibody Screen NEGATIVE, Crossmatch See Detail 03/12/19 05:12: Crossmatch See Detail 03/12/19 14:28: POC Glucose 96 03/12/19 22:19: POC Glucose 100 03/13/19 05:00: WBC 14.8 H, RBC 3.70 L, Hgb 9.4 L, Hct 29.4 L, MCV 79.5 L, MCH 25.4 L, MCHC 32.0, RDW Std Deviation 50.7 H, RDW Coeff of Lu 17.7 H, Plt Count 175, MPV 9.3, Immature Gran % (Auto) 3.000 H, Neut % (Auto) 85.3 H, Lymph % (Auto) 4.7 L, [place] % (Auto) 6.4, Eos % (Auto) 0.2, Baso % (Auto) 0.4, Absolute Neuts (auto) 12.6 H, Absolute Lymphs (auto) 0.70 L, Nucleated RBC % 0 03/13/19 05:00: Sodium 139, Potassium 3.6, Chloride 102, Carbon Dioxide 25.0, Anion Gap 12, BUN 12, Creatinine 2.47 H, Estim Creat Clear Calc 22.16, Est GFR (MDRD) Af Amer 27 L, Est GFR (MDRD) Non-Af 23 L, BUN/Creatinine Ratio 4.9 L, Glucose 119 H, Calcium 8.3 L 03/13/19 05:00: PT 19.0 H, INR 1.6, APTT 51.0 H 03/13/19 06:22: POC Glucose 105 Current Medications Bupropion HCl (Wellbutrin Xl) 300 mg PO DAILY [facility] Last Admin: 03/12/19 09:22 Dose: 300 mg Documented by: Calamine/Phenol (Calmoseptine Ointment) 1 applic TOPICAL BID [facility]; Protocol Last Admin: 03/12/19 22:12 Dose: 1 applicatio Documented by: Ceftriaxone Sodium (Rocephin) 1 gm IM Q24 [facility] Last Admin: 03/12/19 10:14 Dose: 1 gm Documented by: Docusate Sodium (Colace) 100 mg PO BID [facility] Last Admin: 03/12/19 22:13 Dose: 100 mg Documented by: Ergocalciferol (Vitamin D) 50,000 unit PO We@0800 [facility] Last Admin: 03/11/19 09:40 Dose: 50,000 unit Documented by: Furosemide (Lasix) 40 mg PO DAILY [facility] Last Admin: 03/12/19 09:22 Dose: 40 mg Documented by: Glucagon () 1 mg IM .X1 PRN PRN Reason: Hypoglycemia Heparin Sodium (Porcine) (Heparin Na) 5,000 unit SC Q12 [facility] Last Admin: 03/12/19 22:14 Dose: 5,000 unit Documented by: Hydromorphone HCl (Dilaudid Inj) 0.5 mg IV Q4H PRN PRN PRN Reason: Pain Score 1-10/10 Levofloxacin (Levaquin Iv) 250 mg in 50 mls @ 50 mls/hr IV Q48H [facility] Last Infusion: 03/12/19 15:08 Dose: Infused Documented by: Dextrose (Dextrose 10%-Water) 250 mls @ 999 mls/hr IV X1 PRN; Protocol PRN Reason: HYPOGLYCEMIA Nortriptyline HCl (Pamelor) 25 mg PO QHS [facility] Last Admin: 03/12/19 22:14 Dose: Not Given Documented by: Nutritional Formula (Nepro Carb Steady) 120 ml PO 4X/DAY [facility] Last Admin: 03/12/19 22:13 Dose: Not Given Documented by: Ondansetron HCl (Zofran Odt) 4 mg PO Q6H PRN PRN Reason: NAUSEA/VOMITING Last Admin: 03/11/19 09:55 Dose: 4 mg Documented by: Oxycodone HCl (Oxyir) 5 mg PO Q4H PRN PRN PRN Reason: Pain Score 4-5/10 Last Admin: 03/11/19 09:55 Dose: 5 mg Documented by: Oxycodone HCl (Oxyir) 10 mg PO Q4H PRN PRN PRN Reason: Pain Score 6-10/10 Last Admin: 03/13/19 03:41 Dose: 10 mg Documented by: Polyethylene Glycol (Miralax) 17 gm PO DAILY [facility] Last Admin: 03/12/19 09:21 Dose: 17 gm Documented by: Pregabalin (Lyrica) 50 mg PO DAILY [facility] Last Admin: 03/12/19 09:35 Dose: 50 mg Documented by: Sodium Chloride () 10 - 40 ml IV UD PRN PRN Reason: SALINE FLUSH Last Admin: 03/11/19 16:44 Dose: 10 ml Documented by: Sodium Hypochlorite (Dakins Solution 0.25% (1/2 Strength)) 1 applic TOPICAL BID [facility]; Protocol Last Admin: 03/12/19 22:12 Dose: 1 applicatio Documented by: Venlafaxine HCl (Effexor Xr) 75 mg PO DAILY [facility] Last Admin: 03/12/19 09:21 Dose: 75 mg Documented by: STROKE Vital Signs/Narrative: Vital Signs Temp Pulse Resp BP Pulse Ox 03/13/19 08:14 36.9 C 96 16 112/93 H 96 Medical Necessity - Tobacco Use Smoking Status: Never smoker Tobacco Use: Non-smoker Assessment/Plan All Active Problems (Last Reviewed 02/12/19 @ 20:40 by Virgil Murray DO) Problem with dialysis access (Acute) Encephalopathy acute (Acute) Necrotizing soft tissue infection (Acute) Open wound of both lower extremities with complication (Acute) Calciphylaxis (Acute) Lower extremity weakness (Acute) Generalized weakness (Acute) Syncope (Acute) 1. 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 ID on consult Pain somewhat improved according to the patient. Though it is noted by nursing, the patient is very groggy and asking for oxycodone. Given patient's overall poor prognosis and her openness for palliative care (and possible hospice post-[place]), will further optimize pain control. Patient will need to be awake to receive, however. previous biopsy was negative for calciphylaxis. Necrotic border around wounds. 2. ESRD on HD PD catheter removed 03/10 3. DM2 uncontrolled, hypoglycemic hopefully can stablize once able to have oral (has been NPO for surgery today) 4. Poor IV access currently with peripheral in left should DW Dr. Patricia, who states he will not be involved in her case from a vascular access standpoint, but recognized limited options for IV access Only viable option would be an IJ or tunnelled PICC. Hopefully, can avoid both For line today 5. VTE proph: SQ heparin 6. Prognosis: poor. Life expectancy 6-12 months, if not less. Code Visit Inpatient E&M: 76360 Subs Hosp L2
[2019-03-13 09:50] LABS: Hepatitis B Core AB IgM Negative (Negative)
--- NOTE | 2019-03-13 10:53 | CASEMGMT ---
Addendum entered by Josefina Rose 03/13/19 13:28: RAIZA faxed script to [facility], placed original in SNF folder. Addendum entered by Josefina Rose 03/13/19 13:15: RAIZA received call from Amrgie at [facility] stating she needs pt's last three flowsheets for dialysis. RAIZA informed Margie that pt is currently off floor for surgery so this worker doesn't have access to pt's chart for recent flowsheet. RAZIA placed a call to [facility] and spoke with Maria E. Maria E states that she will fax over three most recent flowsheets to [facility]. RAIZA provided fax number. Original Note: Social Work Note RAIZA faxed updated clinicals to [facility] including HEP B test and results. RAIZA wrote on fax coversheet that the plan is discharge Saturday if medically cleared. Green sheet and transportation form on pt's chart. RAIZA completed HENS and placed on pt's chart. Plan: [facility] Saturday if medically cleared Josefina Rose GUN STOCK MAKER, COIL FINISHER
[2019-03-13] MEDS: Ceftriaxone 1 GM Vial IM (12:18)
--- NOTE | 2019-03-13 13:17 | PCM.OPRPT ---
Report of Operation Date of Procedure: 03/13/19 Pre-Operative Diagnosis: 1. 15 cm necrotic wound left proximal lateral thigh with necrotizing soft tissue infection. 2. 21 cm necrotic wound right proximal anterolateral thigh with necrotizing soft tissue infection. 3. End stage renal disease on dialysis. 4. Painful calciphylaxis. 5. Diabetes mellitus. 6. Abdominal wall skin crease abrasion ulcers. Post-Operative Diagnosis: Same. Surgery/Procedure Performed:: 1. Surgical preparation left proximal lateral thigh with incision and drainage and excisional debridement necrotizing soft tissue infection wound with skin necrosis (384 cm2). 2. Surgical preparation right proximal anterolateral thigh with incision and drainage and excisional debridement necrotizing soft tissue infection wound with skin necrosis (476 cm2). Description of Surgical Findings:: I recently performed surgery on this patient on 02/16/19 where she underwent surgical preparation left proximal lateral thigh with incision and drainage and excisional debridement necrotizing soft tissue infection with skin necrosis (165 cm2) and surgical preparation right proximal anterolateral thigh with incision and drainage and excisional debridement necrotizing soft tissue infection with skin necrosis (252 cm2). Postop wound care was with the VAC. While at the ECF, she developed worsening of the bilateral thigh wounds with necrosis at the edges and some exudate at the base of the wounds. There was also increasing pain. Further incision and drainage and excisional debridement was recommended. Patient was informed of the risks and complications of the procedure including alternatives to surgery. These were discussed with the patient personally. Patient voices understanding and wishes to proceed. Size of defect left proximal lateral thigh - 16 x 24 x 6 cm. Size of defect right proximal anterolateral thigh - 14 x 34 x 6 cm. screen and cyclone repairer: Tanner Albright. Type of Anesthesia:: General Specimen's removed: 1. Necrotizing soft tissue infection left proximal lateral thigh to Pathology and Microbiology. 2. Necrotizing soft tissue infection right proximal anterolateral thigh to Pathology and Microbiology. Drains: None. Estimated Blood Loss (mL): 150 ml. Description of Procedure: Patient was taken to OR in supine position and was placed under general anesthesia. The bilateral thighs were prepped and draped in the usual fashion. SCD's were placed for DVT prophylaxis. Perioperative antibiotics were given intravenously. I proceeded with incision and drainage of these areas of necrosis on her bilateral thighs into the subcutaneous tissue. No gross pus was seen but there was extensive fat necrosis present and exudate present. The necrotizing process extended through Willy's fascia down to the muscle. The fascia appeared very inflamed with exudate. The extensive fat necrosis and overlying skin necrosis was excised and debrided. This tissue that was excised and debrided is at risk for further worsening infection because her immune system is decreased due to her history of kidney failure requiring dialysis and her history of diabetes. Tissue excised was sent to Pathology for analysis to rule out carcinoma. Tissue was also sent to Microbiology for culture. A positive culture will necessitate antibiotic therapy. The wound was irrigated with saline. Hemostasis was obtained with electrocautery. Dimensions of the right proximal anterolateral thigh wound after surgical preparation with incision and drainage and excisional debridement skin and subcutaneous tissue and fascia necrotizing soft tissue infection was 14 x 34 x 6 cm or 476 cm2. Dimensions of the left proximal lateral thigh wound after surgical preparation with incision and drainage and excisional debridement skin and subcutaneous tissue and fascia necrotizing soft tissue infection was 16 x 24 x 6 cm or 384 cm2. The thigh wounds were then dressed with Mepitel nonadherent dressing followed by Kerlix gauze and Betadine followed by dry Kerlix gauze and ABD compression dressing. Compression steve wraps were also applied. I then used a curette and sharply debrided the abdominal wall skin crease ulcers into the subcutaneous tissue. Hemostasis was obtained with gauze compression. The ulcers were dressed with Aquacel Silver followed by ABD pad to be done daily. Patient tolerated the procedure well and was sent to PACU in satisfactory condition. Patient will be sent upstairs for continued postop care. She will continue IV antibiotics. Will hold off on the VAC for now and continue Dakin's dressing changes. She is being evaluated for an ECF close to [place] that has inhouse dialysis. Also it is closer to the [facility] in [place] that she would need to be transferred to if her necrosis continues and further operative excision and debridement is necessary. Grafts/Implants Used: None. - Complications None. - Admit VTE Documentation VTE Present on Admission: No VTE Mechan Device Prophylaxis: SCD's VTE Pharm Prophylaxis ordered?: Yes Code Visit Surgery Charges CPT - 62692 ICD-10 - I96, M79.89, S81.801A, N18.6, E83.59, E11.9 68828 I96, M79.89, S81.801A, N18.6, E83.59, E11.9 16242 I96, M79.89, S81.801A, N18.6, E83.59, E11.9 64031 I96, M79.89, S81.801A, N18.6, E83.59, E11.9 18865 I96, M79.89, S81.801A, N18.6, E83.59, E11.9 10110 I96, M79.89, S81.801A, N18.6, E83.59, E11.9 77287 I96, M79.89, S81.802A, N18.6, E83.59, E11.9 13913 I96, M79.89, S81.802A, N18.6, E83.59, E11.9 36125 I96, M79.89, S81.802A, N18.6, E83.59, E11.9 70739 I96, M79.89, S81.802A, N18.6, E83.59, E11.9 78656 I96, M79.89, S81.802A, N18.6, E83.59, E11.9
--- NOTE | 2019-03-13 13:20 | PN.ID_ITS ---
Patient Problems: Active and Suspected Problems (Last Reviewed 02/12/19 @ 20:40 by Virgil Murray DO) Problem with dialysis access (Acute) Subjective: Pt currently gone to OR. - Physical Exam Vitals/I&O's: Vital Signs Temp Pulse Resp BP Pulse Ox 98.5 F 96 18 112/93 H 96 03/13/19 08:14 03/13/19 08:14 03/13/19 09:00 03/13/19 08:14 03/13/19 08:14 Oxygen Flow Rate (L/min) 2 Oxygen Delivery Method Room Air Weight: 105.7 kg Body Mass Index (BMI) 42.8 Finger Stick Blood Glucose 92 Intake and Output for Last 24 Hours 03/11/19 03/12/19 03/13/19 23:59 23:59 23:59 Intake Total 300 / 300 450 / 450 Output Total 0 / 0 0 / 0 Balance 300 / 300 450 / 450 Microbiology Past 72 Hours 03/09/19 14:45 Wound - Leg, Right Gram Stain - Final 03/09/19 14:45 Wound - Leg, Right Wound Culture - Final Actinomyces meyeri 03/09/19 14:45 Tissue Ulcer - Leg Gram Stain - Final 03/09/19 14:45 Tissue Ulcer - Leg Wound Culture - Final Actinomyces meyeri Laboratory Results 03/12/19 05:12: Hep B Core IgM Ab Negative 03/12/19 05:12: Blood Type A POSITIVE, Antibody Screen NEGATIVE, Crossmatch See Detail 03/12/19 05:12: Crossmatch See Detail 03/12/19 14:28: POC Glucose 96 03/12/19 22:19: POC Glucose 100 03/13/19 05:00: WBC 14.8 H, RBC 3.70 L, Hgb 9.4 L, Hct 29.4 L, MCV 79.5 L, MCH 25.4 L, MCHC 32.0, RDW Std Deviation 50.7 H, RDW Coeff of Lu 17.7 H, Plt Count 175, MPV 9.3, Immature Gran % (Auto) 3.000 H, Neut % (Auto) 85.3 H, Lymph % (Auto) 4.7 L, [place] % (Auto) 6.4, Eos % (Auto) 0.2, Baso % (Auto) 0.4, Absolute Neuts (auto) 12.6 H, Absolute Lymphs (auto) 0.70 L, Nucleated RBC % 0 03/13/19 05:00: Sodium 139, Potassium 3.6, Chloride 102, Carbon Dioxide 25.0, Anion Gap 12, BUN 12, Creatinine 2.47 H, Estim Creat Clear Calc 22.16, Est GFR (MDRD) Af Amer 27 L, Est GFR (MDRD) Non-Af 23 L, BUN/Creatinine Ratio 4.9 L, Glucose 119 H, Calcium 8.3 L 03/13/19 05:00: PT 19.0 H, INR 1.6, APTT 51.0 H 03/13/19 06:22: POC Glucose 105 Current Medications Bupropion HCl (Wellbutrin Xl) 300 mg PO DAILY [facility] Last Admin: 03/13/19 12:21 Dose: Not Given Documented by: Calamine/Phenol (Calmoseptine Ointment) 1 applic TOPICAL BID [facility]; Protocol Last Admin: 03/13/19 12:13 Dose: Not Given Documented by: Ceftriaxone Sodium (Rocephin) 1 gm IM Q24 [facility] Last Admin: 03/13/19 12:18 Dose: 1 gm Documented by: Docusate Sodium (Colace) 100 mg PO BID [facility] Last Admin: 03/13/19 12:14 Dose: Not Given Documented by: Ergocalciferol (Vitamin D) 50,000 unit PO We@0800 [facility] Last Admin: 03/11/19 09:40 Dose: 50,000 unit Documented by: Furosemide (Lasix) 40 mg PO DAILY [facility] Last Admin: 03/13/19 12:17 Dose: Not Given Documented by: Glucagon () 1 mg IM .X1 PRN PRN Reason: Hypoglycemia Heparin Sodium (Porcine) (Heparin Na) 5,000 unit SC Q12 [facility] Last Admin: 03/13/19 12:15 Dose: Not Given Documented by: Hydromorphone HCl (Dilaudid Inj) 0.5 mg IV Q4H PRN PRN PRN Reason: Pain Score 1-10/10 Levofloxacin (Levaquin Iv) 250 mg in 50 mls @ 50 mls/hr IV Q48H [facility] Last Infusion: 03/12/19 15:08 Dose: Infused Documented by: Dextrose (Dextrose 10%-Water) 250 mls @ 999 mls/hr IV X1 PRN; Protocol PRN Reason: HYPOGLYCEMIA Nortriptyline HCl (Pamelor) 25 mg PO QHS [facility] Last Admin: 03/12/19 22:14 Dose: Not Given Documented by: Nutritional Formula (Nepro Carb Steady) 120 ml PO 4X/DAY [facility] Last Admin: 03/13/19 12:17 Dose: Not Given Documented by: Ondansetron HCl (Zofran Odt) 4 mg PO Q6H PRN PRN Reason: NAUSEA/VOMITING Last Admin: 03/11/19 09:55 Dose: 4 mg Documented by: Oxycodone HCl (Oxyir) 5 mg PO Q4H PRN PRN PRN Reason: Pain Score 4-5/10 Last Admin: 03/11/19 09:55 Dose: 5 mg Documented by: Oxycodone HCl (Oxyir) 10 mg PO Q4H PRN PRN PRN Reason: Pain Score 6-10/10 Last Admin: 03/13/19 03:41 Dose: 10 mg Documented by: Polyethylene Glycol (Miralax) 17 gm PO DAILY [facility] Last Admin: 03/13/19 12:17 Dose: Not Given Documented by: Pregabalin (Lyrica) 50 mg PO DAILY [facility] Last Admin: 03/13/19 12:22 Dose: Not Given Documented by: Sodium Chloride () 10 - 40 ml IV UD PRN PRN Reason: SALINE FLUSH Last Admin: 03/11/19 16:44 Dose: 10 ml Documented by: Sodium Hypochlorite (Dakins Solution 0.25% (1/2 Strength)) 1 applic TOPICAL BID [facility]; Protocol Last Admin: 03/13/19 12:15 Dose: Not Given Documented by: Venlafaxine HCl (Effexor Xr) 75 mg PO DAILY [facility] Last Admin: 03/13/19 12:15 Dose: Not Given Documented by: Medical Necessity - Tobacco Use Smoking Status: Never smoker Tobacco Use: Non-smoker Route of nutrition/ use of supplements: [] Nutritional Intake: [] IV Site: [] Ross Catheter: [] - Assessment/Plan Antibiotics: [] Assessment/Plan: [] Active and Suspected Problems (Last Reviewed 02/12/19 @ 20:40 by Virgil Murray DO) Problem with dialysis access (Acute) Actinomyces infected wounds with ESRD - Limited options based on ESRD, lack of access, and susceptibilities of actino. Will stop levaquin. Cont IM ceftriaxone. Plan on continuing this after discharge until she enters hospice care after the holidays. Wrote rx. Will follow
[2019-03-13 13:45] LABS: Bedside Glucose 126 mg/dL (70-110)
[2019-03-13 16:16] LABS: Bedside Glucose 123 mg/dL (70-110)
[2019-03-13] MEDS: Menthol/Lanolin/Calamine/Znox 113 GM Tube 1 APPLIC TOPICAL (21:34)
[2019-03-13] MEDS: Heparin Injection (Vial) 5,000 UNIT/ML VIAL 5000 UNIT SC (21:35)
[2019-03-13] MEDS: Nepro Liquid 120 ML LIQUID PO (21:39)
[2019-03-13 21:51] LABS: Bedside Glucose 121 mg/dL (70-110)
[2019-03-14] VITALS (9 sets, daily range): BP systolic 64–135; BP diastolic 36–78; PULSE 76–112; RESP 16–20; TEMP 36.2–36.9; O2SAT 96–100
[2019-03-14] MEDS: Nystatin Powder 15gm Bottle 1 APPLIC TOPICAL ×3 (00:20→20:42)
--- NOTE | 2019-03-14 00:20 | NURSING ---
this rn and ore charger in to change abd dressings, pt making nonsensical statements that she was kidding and that staff were not understanding her joke (pt had been sleeping upon entering room), attempted to reorient pt that her abd wounds needed a dressing change, pt irritable and tried to put her hands in the wounds, had to call sixth grade teacher to assist so pt wouldnt touch her wounds. dressing change to abd completed. pericare for stool incontinence and repositioning of pt. bed exit on
--- NOTE | 2019-03-14 06:08 | NURSING ---
fed few sips of nephro carb steady refused further nutrition
[2019-03-14 06:30] LABS: Bedside Glucose 120 mg/dL (70-110)
--- NOTE | 2019-03-14 08:56 | PCM.PN.REN ---
Patient Problems: Active and Suspected Problems (Last Reviewed 02/12/19 @ 20:40 by Virgil Murray DO) Problem with dialysis access (Acute) Subjective: hemodialysis today, hgb 8.5 after prbc. Epo today on dialysis - Physical Exam Vitals/I&O's: Vital Signs Temp Pulse Resp BP Pulse Ox 97.7 F L 76 16 135/78 H 96 03/14/19 06:06 03/14/19 06:06 03/14/19 06:06 03/14/19 06:06 03/14/19 06:06 Oxygen Flow Rate (L/min) 2 Oxygen Delivery Method Room Air Weight: 105.324 kg Body Mass Index (BMI) 42.8 Finger Stick Blood Glucose 126 Intake and Output for Last 24 Hours 03/12/19 03/13/19 03/14/19 23:59 23:59 23:59 Intake Total 450 / 450 50 / 50 30 / 30 Output Total 0 / 0 0 / 0 Balance 450 / 450 50 / 50 30 / 30 General: Alert, Oriented x3 Lungs: Clear to auscultation Cardiovascular: Regular rate Extremities: No edema Microbiology Past 72 Hours 03/13/19 13:31 Biopsy - Tissue Gram Stain - Final 03/13/19 13:31 Tissue - Leg Gram Stain - Final 03/09/19 14:45 Wound - Leg, Right Gram Stain - Final 03/09/19 14:45 Wound - Leg, Right Wound Culture - Final Actinomyces meyeri 03/09/19 14:45 Tissue Ulcer - Leg Gram Stain - Final 03/09/19 14:45 Tissue Ulcer - Leg Wound Culture - Final Actinomyces meyeri Laboratory Results 03/12/19 05:12: Hep B Core IgM Ab Negative 03/13/19 13:40: POC Glucose 126 H 03/13/19 16:12: POC Glucose 123 H 03/13/19 21:43: POC Glucose 121 H 03/14/19 06:18: POC Glucose 120 H 03/14/19 07:58: WBC 4.0 L, RBC 3.35 L, Hgb 8.5 L, Hct 26.9 L, MCV 80.3 L, MCH 25.4 L, MCHC 31.6 L, RDW Std Deviation 52.8 H, RDW Coeff of Lu 18.0 H, Plt Count 138 L, MPV 9.2, Immature Gran % (Auto) 4.000 H, Neut % (Auto) 83.1 H, Lymph % (Auto) 8.5 L, [place] % (Auto) 3.3, Eos % (Auto) 0.8, Baso % (Auto) 0.3, Absolute Neuts (auto) 3.3, Absolute Lymphs (auto) 0.34 L, Nucleated RBC % 0 03/14/19 08:24: Sodium Pending, Potassium Pending, Chloride Pending, Carbon Dioxide Pending, BUN Pending, Creatinine Pending, Est GFR (MDRD) Af Amer Pending, Est GFR (MDRD) Non-Af Pending, BUN/Creatinine Ratio Pending, Glucose Pending, Calcium Pending, Phosphorus Pending, Albumin Pending Current Medications Bupropion HCl (Wellbutrin Xl) 300 mg PO DAILY [facility] Last Admin: 03/13/19 12:21 Dose: Not Given Documented by: Calamine/Phenol (Calmoseptine Ointment) 1 applic TOPICAL BID [facility]; Protocol Last Admin: 03/13/19 21:34 Dose: 1 applicatio Documented by: Ceftriaxone Sodium (Rocephin) 1 gm IM Q24 [facility] Last Admin: 03/13/19 12:18 Dose: 1 gm Documented by: Docusate Sodium (Colace) 100 mg PO BID [facility] Last Admin: 03/13/19 21:34 Dose: Not Given Documented by: Ergocalciferol (Vitamin D) 50,000 unit PO We@0800 [facility] Last Admin: 03/11/19 09:40 Dose: 50,000 unit Documented by: Furosemide (Lasix) 40 mg PO DAILY [facility] Last Admin: 03/13/19 12:17 Dose: Not Given Documented by: Glucagon () 1 mg IM .X1 PRN PRN Reason: Hypoglycemia Heparin Sodium (Porcine) (Heparin Na) 5,000 unit SC Q12 [facility] Last Admin: 03/13/19 21:35 Dose: 5,000 unit Documented by: Hydromorphone HCl (Dilaudid Inj) 0.5 mg IV Q4H PRN PRN PRN Reason: Pain Score 1-10/10 Dextrose (Dextrose 10%-Water) 250 mls @ 999 mls/hr IV X1 PRN; Protocol PRN Reason: HYPOGLYCEMIA Nortriptyline HCl (Pamelor) 25 mg PO QHS [facility] Last Admin: 03/13/19 21:47 Dose: Not Given Documented by: Nutritional Formula (Nepro Carb Steady) 120 ml PO 4X/DAY [facility] Last Admin: 03/13/19 21:39 Dose: 120 ml Documented by: Nystatin (Mycostatin Powder) 1 applic TOPICAL BID [facility]; Protocol Last Admin: 03/14/19 00:20 Dose: 1 applicatio Documented by: Ondansetron HCl (Zofran Odt) 4 mg PO Q6H PRN PRN Reason: NAUSEA/VOMITING Last Admin: 03/11/19 09:55 Dose: 4 mg Documented by: Oxycodone HCl (Oxyir) 5 mg PO Q4H PRN PRN PRN Reason: Pain Score 4-5/10 Last Admin: 03/11/19 09:55 Dose: 5 mg Documented by: Oxycodone HCl (Oxyir) 10 mg PO Q4H PRN PRN PRN Reason: Pain Score 6-10/10 Last Admin: 03/13/19 03:41 Dose: 10 mg Documented by: Polyethylene Glycol (Miralax) 17 gm PO DAILY [facility] Last Admin: 03/13/19 12:17 Dose: Not Given Documented by: Pregabalin (Lyrica) 50 mg PO DAILY [facility] Last Admin: 03/13/19 12:22 Dose: Not Given Documented by: Sodium Chloride () 10 - 40 ml IV UD PRN PRN Reason: SALINE FLUSH Last Admin: 03/11/19 16:44 Dose: 10 ml Documented by: Sodium Hypochlorite (Dakins Solution 0.25% (1/2 Strength)) 1 applic TOPICAL BID [facility]; Protocol Last Admin: 03/13/19 22:06 Dose: Not Given Documented by: Venlafaxine HCl (Effexor Xr) 75 mg PO DAILY [facility] Last Admin: 03/13/19 12:15 Dose: Not Given Documented by: Medical Necessity - Tobacco Use Smoking Status: Never smoker Tobacco Use: Non-smoker Assessment/Plan All Active Problems (Last Reviewed 02/12/19 @ 20:40 by Virgil Murray DO) Problem with dialysis access (Acute) Encephalopathy acute (Acute) Necrotizing soft tissue infection (Acute) Open wound of both lower extremities with complication (Acute) Calciphylaxis (Acute) Lower extremity weakness (Acute) Generalized weakness (Acute) Syncope (Acute) 1. ESRD HD TTS with tunneled dialysis catheter. Hemodialysis today. s/p PD catheter removal due to nonfunctional catheter. 2. Anemia VIVIAN, s/p prbc. Hgb dropped after debridement. PRBC as needed 3. Severe debility. 4. Wound infection s/p debridement with wound vac on prior hospitalization. Scheduled for debridement per Dr. Cuevas.
--- NOTE | 2019-03-14 09:46 | PCM.PN.HOSP ---
Patient Problems: Active and Suspected Problems (Last Reviewed 02/12/19 @ 20:40 by Virgil Murray DO) Problem with dialysis access (Acute) Subjective: Patient seen and examined. She was quite lethargic at time of review though she was able to answer questions. She denied any active complaints. She was having dialysis at that time. She denied any lightheadedness or dizziness, palpitation, chest pain, abdominal pain, diarrhea vomiting. Review of symptoms otherwise negative. Labs and vitals reviewed. Vitals/I&O's: Vital Signs Temp Pulse Resp BP Pulse Ox 97.7 F L 76 16 135/78 H 96 03/14/19 06:06 03/14/19 06:06 03/14/19 06:06 03/14/19 06:06 03/14/19 06:06 Oxygen Flow Rate (L/min) 2 Oxygen Delivery Method Room Air Weight: 232 lb 3.2 oz Body Mass Index (BMI) 42.8 Finger Stick Blood Glucose 126 Intake and Output for Last 24 Hours 03/12/19 03/13/19 03/14/19 23:59 23:59 23:59 Intake Total 450 / 450 50 / 50 30 / 30 Output Total 0 / 0 0 / 0 Balance 450 / 450 50 / 50 30 / 30 General: Alert, Cooperative, Lethargic HEENT: Atraumatic, PERRLA, EOMI, Normocephalic Oral: Dry Mucosa Neck: Supple, No JVD, Negative Carotid Bruits Lungs: Clear to auscultation, Normal air movement, No rhonchi, No wheeze Cardiovascular: Regular rate, Regular Rhythm, Normal S1, Normal S2, No murmurs Abdomen: Bowel Sounds Present, Soft, Non Tender, Non-Distended, No Hepato-splenomegaly Extremities: No clubbing, No cyanosis, No edema, Capillary Refill Less than 3 Seconds, - - both LES wrapped in SHANE bandage from hip to just above knee Skin: No rashes, No breakdown, - - has dialysis catheter in chest Musculoskeletal: No Tenderness to Palpation of Joints or Extremities Lymphatic: No Cervical, Supraclavicular, or Inguinal Adenopathy Neurological: Cranial nerves II-XII grossly intact, Motor Exam 5/5 strength throughout Psych/Mental Status: - - lethargic Microbiology Past 72 Hours 03/13/19 13:31 Biopsy - Tissue Gram Stain - Final 03/13/19 13:31 Tissue - Leg Gram Stain - Final 03/09/19 14:45 Wound - Leg, Right Gram Stain - Final 03/09/19 14:45 Wound - Leg, Right Wound Culture - Final Actinomyces meyeri 03/09/19 14:45 Tissue Ulcer - Leg Gram Stain - Final 03/09/19 14:45 Tissue Ulcer - Leg Wound Culture - Final Actinomyces meyeri Laboratory Results 03/12/19 05:12: Hep B Core IgM Ab Negative 03/13/19 13:40: POC Glucose 126 H 03/13/19 16:12: POC Glucose 123 H 03/13/19 21:43: POC Glucose 121 H 03/14/19 06:18: POC Glucose 120 H 03/14/19 07:58: WBC Cancelled, Corrected WBC Cancelled, RBC Cancelled, Hgb Cancelled, Hct Cancelled, MCV Cancelled, MCH Cancelled, MCHC Cancelled, RDW Std Deviation Cancelled, RDW Coeff of Lu Cancelled, Plt Count Cancelled, MPV Cancelled, Immature Gran % (Auto) Cancelled, Neut % (Auto) Cancelled, Lymph % (Auto) Cancelled, [place] % (Auto) Cancelled, Eos % (Auto) Cancelled, Baso % (Auto) Cancelled, Absolute Neuts (auto) Cancelled, Absolute Lymphs (auto) Cancelled, Total Counted Cancelled, Neutrophils % (Manual) Cancelled, Band Neutrophils % Cancelled, Lymphocytes % (Manual) Cancelled, Monocytes % (Manual) Cancelled, Eosinophils % (Manual) Cancelled, Basophils % (Manual) Cancelled, Metamyelocytes % Cancelled, Myelocytes % Cancelled, Promyelocytes % Cancelled, Blast Cells % Cancelled, Plasma Cell % (Manual) Cancelled, Other Cells % Cancelled, Nucleated RBC % Cancelled, Nucleated RBCs/100 WBC Cancelled, Differential Comment Cancelled, Diff Path Review Cancelled, Hypersegmented Neuts Cancelled, Atypical Lymphocytes Cancelled, Reactive Lymphocytes Cancelled, Smudge Cells Cancelled, Toxic Granulation Cancelled, Toxic Vacuolation Cancelled, Dohle Bodies Cancelled, [place] Rods Cancelled, Platelet Estimate Cancelled, Plt Morphology Comment Cancelled, RBC Morphology Cancelled, Polychromasia Cancelled, Hypochromasia Cancelled, Poikilocytosis Cancelled, Basophilic Stippling Cancelled, Anisocytosis Cancelled, Microcytosis Cancelled, Macrocytosis Cancelled, Spherocytes Cancelled, Sickle Cells Cancelled, Target Cells Cancelled, Tear Drop Cells Cancelled, Ovalocytes Cancelled, Stomatocytes Cancelled, [place] Bodies Cancelled, [place] Cells Cancelled, Bite Cells Cancelled, Crenated Cell Cancelled, Acanthocytes (Spur) Cancelled, Rouleaux Cancelled, Schistocytes Cancelled 03/14/19 08:24: Sodium Pending, Potassium Pending, Chloride Pending, Carbon Dioxide Pending, BUN Pending, Creatinine Pending, Est GFR (MDRD) Af Amer Pending, Est GFR (MDRD) Non-Af Pending, BUN/Creatinine Ratio Pending, Glucose Pending, Calcium Pending, Phosphorus Pending, Albumin Pending Current Medications Bupropion HCl (Wellbutrin Xl) 300 mg PO DAILY [facility] Last Admin: 03/13/19 12:21 Dose: Not Given Documented by: Calamine/Phenol (Calmoseptine Ointment) 1 applic TOPICAL BID [facility]; Protocol Last Admin: 03/13/19 21:34 Dose: 1 applicatio Documented by: Ceftriaxone Sodium (Rocephin) 1 gm IM Q24 [facility] Last Admin: 03/13/19 12:18 Dose: 1 gm Documented by: Glucagon () 1 mg IM .X1 PRN PRN Reason: Hypoglycemia Heparin Sodium (Porcine) (Heparin Na) 5,000 unit SC Q12 [facility] Last Admin: 03/13/19 21:35 Dose: 5,000 unit Documented by: Hydromorphone HCl (Dilaudid Inj) 0.5 mg IV Q4H PRN PRN PRN Reason: Pain Score 1-10/10 Dextrose (Dextrose 10%-Water) 250 mls @ 999 mls/hr IV X1 PRN; Protocol PRN Reason: HYPOGLYCEMIA Nortriptyline HCl (Pamelor) 25 mg PO QHS [facility] Last Admin: 03/13/19 21:47 Dose: Not Given Documented by: Nutritional Formula (Nepro Carb Steady) 120 ml PO 4X/DAY [facility] Last Admin: 03/13/19 21:39 Dose: 120 ml Documented by: Nystatin (Mycostatin Powder) 1 applic TOPICAL BID [facility]; Protocol Last Admin: 03/14/19 00:20 Dose: 1 applicatio Documented by: Ondansetron HCl (Zofran Odt) 4 mg PO Q6H PRN PRN Reason: NAUSEA/VOMITING Last Admin: 03/11/19 09:55 Dose: 4 mg Documented by: Oxycodone HCl (Oxyir) 5 mg PO Q4H PRN PRN PRN Reason: Pain Score 4-5/10 Last Admin: 03/11/19 09:55 Dose: 5 mg Documented by: Oxycodone HCl (Oxyir) 10 mg PO Q4H PRN PRN PRN Reason: Pain Score 6-10/10 Last Admin: 03/13/19 03:41 Dose: 10 mg Documented by: Polyethylene Glycol (Miralax) 17 gm PO DAILY [facility] Last Admin: 03/13/19 12:17 Dose: Not Given Documented by: Pregabalin (Lyrica) 50 mg PO DAILY [facility] Last Admin: 03/13/19 12:22 Dose: Not Given Documented by: Sodium Chloride () 10 - 40 ml IV UD PRN PRN Reason: SALINE FLUSH Last Admin: 03/11/19 16:44 Dose: 10 ml Documented by: Sodium Hypochlorite (Dakins Solution 0.25% (1/2 Strength)) 1 applic TOPICAL BID [facility]; Protocol Last Admin: 03/13/19 22:06 Dose: Not Given Documented by: Venlafaxine HCl (Effexor Xr) 75 mg PO DAILY [facility] Last Admin: 03/13/19 12:15 Dose: Not Given Documented by: STROKE Vital Signs/Narrative: Vital Signs Temp Pulse Resp BP Pulse Ox 03/14/19 06:06 97.7 F L 76 16 135/78 H 96 Medical Necessity - Tobacco Use Smoking Status: Never smoker Tobacco Use: Non-smoker Assessment/Plan All Active Problems (Last Reviewed 02/12/19 @ 20:40 by Virgil Murray DO) Problem with dialysis access (Acute) Encephalopathy acute (Acute) Necrotizing soft tissue infection (Acute) Open wound of both lower extremities with complication (Acute) Calciphylaxis (Acute) Lower extremity weakness (Acute) Generalized weakness (Acute) Syncope (Acute) 1. Infected necrotic leg wounds s/p incision and drainage as well as excisional debridement of anterolateral thighs bilaterally today is POD 1 wound cultures were positive for actinomyces plastic surgery and ID on board wbc trended up to 14.8 overnight, cbc pending today on IV ceftriaxone 2. ESRD on HD has dialysis via catheter in chest as her peritoneal dialysis catheter failed. having dialysis today nephrology on board 3. Type 2 diabetes mellitus diet controlled last A1C (02/17) was 5.6, therefore, I really doubt that patient does have diabetes mellitus, as her blood sugars have also not been elevated did have some episodes of hypoglycemia on 03/10/19, with blood sugar going as low as 46. will monitor. DVT prophylaxis: heparin Disposition: patient open to palliative care, and entering hospice care after [place]. Code Visit Inpatient E&M: 20147 Subs Hosp L2
[2019-03-14] MEDS: oxyCODONE 5 MG Tablet 10 MG PO (10:05)
[2019-03-14 10:31] LABS: Absolute Neutrophil Count 11.8 X10^3/uL (2.0-7.7); Basophil# 0.02 X10^3/uL; Basophil% 0.1 % (0-1); Eosinophil# 0.04 X10^3/uL; Eosinophils% 0.3 % (0-5); Hematocrit 27.5 % (37-47); Hemoglobin 8.8 g/dL (12.0-15.0); Lymphocyte % 3.7 % (19-41); Mean Corpuscular Hgb 25.5 pg (27.0-32.0); Mean Corpuscular Volume 79.7 fL (81-99); Mean Platelet Vol. 9.2 fl (6.2-12.0); Monocyte# 0.78 X10^3/uL; Monocyte% 5.8 % (0-10); NRBC Flagged by Analyzer 0.1 % (0-5); Neutrophil # 11.77 X10^3/uL (2.7-7.7); Neutrophil % 88.4 % (47-70); POSITIVE DIFFERENTIAL YES; Platelet Count 164 K/mm3 (150-450); RBC Distribution Width CV 18.3 % (11.6-14.6); RBC Distribution Width SD 52.8 fl (35.1-43.9); Red Blood Count 3.45 M/mm3 (4.2-5.4); White Blood Count 13.3 K/mm3 (4.4-11.0)
[2019-03-14 10:32] LABS: Differential Indicated SCAN CRITERIA MET
[2019-03-14] MEDS: Epoetin Alfa epbx 10,000 UNITS/ML 10000 UNIT IV (11:00)
--- NOTE | 2019-03-14 11:45 | PN.SURG_ITS ---
Patient Problems: Active and Suspected Problems (Last Reviewed 02/12/19 @ 20:40 by Virgil Murray DO) Problem with dialysis access (Acute) Subjective: Postop #1 Patient feels tired. Had dialysis today. - Physical Exam Vitals/I&O's: Vital Signs Temp Pulse Resp BP Pulse Ox 97.7 F L 76 16 135/78 H 96 03/14/19 06:06 03/14/19 06:06 03/14/19 06:06 03/14/19 06:06 03/14/19 06:06 Oxygen Flow Rate (L/min) 2 Oxygen Delivery Method Room Air Weight: 232 lb 3.2 oz Body Mass Index (BMI) 42.8 Finger Stick Blood Glucose 126 Intake and Output for Last 24 Hours 03/12/19 03/13/19 03/14/19 23:59 23:59 23:59 Intake Total 450 / 450 50 / 50 30 / 30 Output Total 0 / 0 0 / 0 Balance 450 / 450 50 / 50 30 / 30 General: Alert, Oriented x3 HEENT: PERRLA, EOMI Oral: Moist Mucosa Neck: Supple Abdomen: Soft, Non-Distended Skin: Ulcer/ Wound - thigh dressings are dry. Will change the dressing with Dakin's later today. Can start twice a day dressings tomorrow. Can also change the Silver on the abdominal wall skin crease abrasion ulcers. Neurological: Cranial nerves II-XII grossly intact Psych/Mental Status: Normal Affect, Appropriate Microbiology Past 72 Hours 03/13/19 13:31 Biopsy - Tissue Gram Stain - Final 03/13/19 13:31 Tissue - Leg Gram Stain - Final 03/09/19 14:45 Wound - Leg, Right Gram Stain - Final 03/09/19 14:45 Wound - Leg, Right Wound Culture - Final Actinomyces meyeri 03/09/19 14:45 Tissue Ulcer - Leg Gram Stain - Final 03/09/19 14:45 Tissue Ulcer - Leg Wound Culture - Final Actinomyces meyeri Laboratory Results 03/13/19 13:40: POC Glucose 126 H 03/13/19 16:12: POC Glucose 123 H 03/13/19 21:43: POC Glucose 121 H 03/14/19 06:18: POC Glucose 120 H 03/14/19 07:58: WBC Cancelled, Corrected WBC Cancelled, RBC Cancelled, Hgb Cancelled, Hct Cancelled, MCV Cancelled, MCH Cancelled, MCHC Cancelled, RDW Std Deviation Cancelled, RDW Coeff of Lu Cancelled, Plt Count Cancelled, MPV Cancelled, Immature Gran % (Auto) Cancelled, Neut % (Auto) Cancelled, Lymph % (Auto) Cancelled, Hanson % (Auto) Cancelled, Eos % (Auto) Cancelled, Baso % (Auto) Cancelled, Absolute Neuts (auto) Cancelled, Absolute Lymphs (auto) Cancelled, Total Counted Cancelled, Neutrophils % (Manual) Cancelled, Band Neutrophils % Cancelled, Lymphocytes % (Manual) Cancelled, Monocytes % (Manual) Cancelled, Eosinophils % (Manual) Cancelled, Basophils % (Manual) Cancelled, Metamyelocytes % Cancelled, Myelocytes % Cancelled, Promyelocytes % Cancelled, Blast Cells % Cancelled, Plasma Cell % (Manual) Cancelled, Other Cells % Cancelled, Nucleated RBC % Cancelled, Nucleated RBCs/100 WBC Cancelled, Differential Comment Cancelled, Diff Path Review Cancelled, Hypersegmented Neuts Cancelled, Atypical Lymphocytes Cancelled, Reactive Lymphocytes Cancelled, Smudge Cells Cancelled, Toxic Granulation Cancelled, Toxic Vacuolation Cancelled, Dohle Bodies Cancelled, Stuart Rods Cancelled, Platelet Estimate Cancelled, Plt Morphology Comment Cancelled, RBC Morphology Cancelled, Polychromasia Cancelled, Hypochromasia Cancelled, Poikilocytosis Cancelled, Basophilic Stippling Cancelled, Anisocytosis Cancelled, Microcytosis Cancelled, Macrocytosis Cancelled, Spherocytes Cancelled, Sickle Cells Cancelled, Target Cells Cancelled, Tear Drop Cells Cancelled, Ovalocytes Cancelled, Stomatocytes Cancelled, [place] Bodies Cancelled, Zullinger Cells Cancelled, Bite Cells Cancelled, Crenated Cell Cancelled, Acanthocytes (Spur) Cancelled, Rouleaux Cancelled, Schistocytes Cancelled 03/14/19 08:24: Sodium Pending, Potassium Pending, Chloride Pending, Carbon Dioxide Pending, BUN Pending, Creatinine Pending, Est GFR (MDRD) Af Amer Pending, Est GFR (MDRD) Non-Af Pending, BUN/Creatinine Ratio Pending, Glucose Pending, Calcium Pending, Phosphorus Pending, Albumin Pending 03/14/19 10:23: WBC 13.3 H, RBC 3.45 L, Hgb 8.8 L, Hct 27.5 L, MCV 79.7 L, MCH 25.5 L, MCHC 32.0, RDW Std Deviation 52.8 H, RDW Coeff of Ul 18.3 H, Plt Count 164, MPV 9.2, Immature Gran % (Auto) 1.700 H, Neut % (Auto) 88.4 H, Lymph % (Auto) 3.7 L, Hanson % (Auto) 5.8, Eos % (Auto) 0.3, Baso % (Auto) 0.1, Absolute Neuts (auto) 11.8 H, Absolute Lymphs (auto) 0.50 L, Nucleated RBC % 0.1 Current Medications Bupropion HCl (Wellbutrin Xl) 300 mg PO DAILY [facility] Last Admin: 03/13/19 12:21 Dose: Not Given Documented by: Calamine/Phenol (Calmoseptine Ointment) 1 applic TOPICAL BID [facility]; Protocol Last Admin: 03/13/19 21:34 Dose: 1 applicatio Documented by: Ceftriaxone Sodium (Rocephin) 1 gm IM Q24 [facility] Last Admin: 03/13/19 12:18 Dose: 1 gm Documented by: Glucagon () 1 mg IM .X1 PRN PRN Reason: Hypoglycemia Heparin Sodium (Porcine) (Heparin Na) 5,000 unit SC Q12 [facility] Last Admin: 03/13/19 21:35 Dose: 5,000 unit Documented by: Hydromorphone HCl (Dilaudid Inj) 0.5 mg IV Q4H PRN PRN PRN Reason: Pain Score 1-10/10 Dextrose (Dextrose 10%-Water) 250 mls @ 999 mls/hr IV X1 PRN; Protocol PRN Reason: HYPOGLYCEMIA Nortriptyline HCl (Pamelor) 25 mg PO QHS [facility] Last Admin: 03/13/19 21:47 Dose: Not Given Documented by: Nutritional Formula (Nepro Carb Steady) 120 ml PO 4X/DAY [facility] Last Admin: 03/13/19 21:39 Dose: 120 ml Documented by: Nystatin (Mycostatin Powder) 1 applic TOPICAL BID [facility]; Protocol Last Admin: 03/14/19 00:20 Dose: 1 applicatio Documented by: Ondansetron HCl (Zofran Odt) 4 mg PO Q6H PRN PRN Reason: NAUSEA/VOMITING Last Admin: 03/11/19 09:55 Dose: 4 mg Documented by: Oxycodone HCl (Oxyir) 5 mg PO Q4H PRN PRN PRN Reason: Pain Score 4-5/10 Last Admin: 03/11/19 09:55 Dose: 5 mg Documented by: Oxycodone HCl (Oxyir) 10 mg PO Q4H PRN PRN PRN Reason: Pain Score 6-10/10 Last Admin: 03/14/19 10:05 Dose: 10 mg Documented by: Polyethylene Glycol (Miralax) 17 gm PO DAILY [facility] Last Admin: 03/13/19 12:17 Dose: Not Given Documented by: Pregabalin (Lyrica) 50 mg PO DAILY [facility] Last Admin: 03/13/19 12:22 Dose: Not Given Documented by: Sodium Chloride () 10 - 40 ml IV UD PRN PRN Reason: SALINE FLUSH Last Admin: 03/11/19 16:44 Dose: 10 ml Documented by: Sodium Hypochlorite (Dakins Solution 0.25% (1/2 Strength)) 1 applic TOPICAL BID [facility]; Protocol Last Admin: 03/13/19 22:06 Dose: Not Given Documented by: Venlafaxine HCl (Effexor Xr) 75 mg PO DAILY [facility] Last Admin: 03/13/19 12:15 Dose: Not Given Documented by: Medical Necessity - Tobacco Use Smoking Status: Never smoker Tobacco Use: Non-smoker Assessment/Plan All Active Problems (Last Reviewed 02/12/19 @ 20:40 by Virgil Murray DO) Problem with dialysis access (Acute) Encephalopathy acute (Acute) Necrotizing soft tissue infection (Acute) Open wound of both lower extremities with complication (Acute) Calciphylaxis (Acute) Lower extremity weakness (Acute) Generalized weakness (Acute) Syncope (Acute) 1. 15 cm necrotic wound left proximal lateral thigh with necrotizing soft tissue infection. 2. 21 cm necrotic wound right proximal anterolateral thigh with necrotizing soft tissue infection. 3. End stage renal disease on dialysis. 4. Painful calciphylaxis. 5. Diabetes mellitus. 6. s/p surgical preparation left proximal lateral thigh with incision and drainage and excisional debridement necrotizing soft tissue infection with skin necrosis (384 cm2) and surgical preparation right proximal anterolateral thigh with incision and drainage and excisional debridement necrotizing soft tissue infection with skin necrosis (476 cm2). 7. Abdominal wall skin crease abrasion ulcers, stable. Had dialysis today. The Dakin's dressing change will be done later today. On the dialysis days, only have to do the Dakin's dressing one time. The Silver dressing changes in the abdominal wall skin crease areas can be changed at the same time as the Dakin's dressing change to the thighs. Continue Ceftriaxone. Operative cultures are pending. Anticipate further progression of her skin necrosis. If so, she should be transferred to a [facility] to help with the wound care with whirlpool and to be able to give higher doses of Morphine for the wound care. She is scheduled to be discharged to an ECF close to [place] that has inhouse dialysis.
[2019-03-14] MEDS: Menthol/Lanolin/Calamine/Znox 113 GM Tube 1 APPLIC TOPICAL ×2 (11:59→20:42)
[2019-03-14] MEDS: Polyethylene Glycol 3350 17 GM PACKET PO (12:00)
[2019-03-14] MEDS: 0.9% Saline Lock 10 ML Syringe IV (12:00)
[2019-03-14] MEDS: Venlafaxine XR 75 MG Capsule PO (12:01)
[2019-03-14] MEDS: buPROPion (XL) 300 MG TABLET.XL PO (12:01)
[2019-03-14] MEDS: Heparin Injection (Vial) 5,000 UNIT/ML VIAL 5000 UNIT SC ×2 (12:01→20:47)
[2019-03-14] MEDS: Pregabalin 50 MG Capsule PO (12:04)
[2019-03-14 12:15] LABS: Bedside Glucose 103 mg/dL (70-110)
--- NOTE | 2019-03-14 12:56 | DIALYSIS ---
HD x only 3hr10m completed at 1100, patient insisted on ending treatment 35 mins early due to BLE leg pain, patient medicated for leg pain during tx but after an hour still insisted that tx end, tolerated tx well otherwise, UF 900mL, accessed via right chest dialysis catheter, good blood flows, EPO 10,000 units given during dialysis, Dr. Odonnell notified
[2019-03-14] MEDS: Ceftriaxone 1 GM/50 ML BAG IV (13:19)
[2019-03-14 14:35] LABS: Albumin, Serum 1.5 g/dL (3.2-5.0); BUN 12 mg/dL (7-18); BUN/Creat Ratio 4.9 RATIO (10-20); Calcium,Total 7.9 mg/dL (8.5-10.1); Chloride 101 mmol/L (98-107); Creatinine, Serum 2.45 mg/dL (0.55-1.02); EST Glomerular Filtration Rate 23 mL/min (>60); Est Glom Filt Rate - Afr Amer 28 mL/min (>60); Estimated Creatinine Clearance 22.34 ml/min; Glucose 107 mg/dL (74-106); Phosphorus 2.5 mg/dL (2.5-4.9); Potassium 4.7 mmol/L (3.5-5.1); Sodium Level 139 mmol/L (136-145)
[2019-03-14] MEDS: DAKIN'S SOL HALF STRENGTH (=0.25%) 1 APPLIC TOPICAL (16:38)
--- NOTE | 2019-03-14 16:48 | NURSING ---
This nurse in room with Sydnee Rn while Sydnee was performing drsg change on pt's Rt thigh. Pt very flat affect with minimal response started to vomit large amt of bile without any warning. Pt asked to tell nurse where she was at. Pt did not respond but had her eyes open. When asked again where she was at, pt stated she didn't know. BS was 104. BP initally was 125/100, Hr 121 but now 10 min later, bP is 66/59, HR 112. Bp rechecked again and it was 83/50. Dr. Rasmussen notified of the above except for VItal Signs. Dr. Rasmussen coming to the room to see pt.
--- NOTE | 2019-03-14 17:00 | NURSING ---
Dr. Rasmussen to room. bolus ordered. patient answering some questions but still with minimal response. eyes open spontaneously. this RN remains in room monitoring.
[2019-03-14 17:01] LABS: Bedside Glucose 104 mg/dL (70-110)
[2019-03-14] MEDS: Ondansetron ODT 4 MG Tablet PO (20:45)
[2019-03-14 21:45] LABS: Bedside Glucose 157 mg/dL (70-110)
[2019-03-15] VITALS (7 sets, daily range): BP systolic 98–140; BP diastolic 65–80; PULSE 96–105; RESP 16–18; TEMP 36.3–37.1; O2SAT 99–100
[2019-03-15 06:46] LABS: Bedside Glucose 155 mg/dL (70-110)
[2019-03-15 08:18] LABS: Albumin, Serum 1.4 g/dL (3.2-5.0); BUN 19 mg/dL (7-18); BUN/Creat Ratio 6.2 RATIO (10-20); Calcium,Total 8.3 mg/dL (8.5-10.1); Chloride 102 mmol/L (98-107); Creatinine, Serum 3.04 mg/dL (0.55-1.02); EST Glomerular Filtration Rate 18 mL/min (>60); Est Glom Filt Rate - Afr Amer 22 mL/min (>60); Estimated Creatinine Clearance 18.01 ml/min; Glucose 156 mg/dL (74-106); Phosphorus 2.8 mg/dL (2.5-4.9); Potassium 3.9 mmol/L (3.5-5.1); Sodium Level 136 mmol/L (136-145)
--- NOTE | 2019-03-15 11:11 | PCM.PN.HOSP ---
Patient Problems: Active and Suspected Problems (Last Reviewed 02/12/19 @ 20:40 by Virgil Murray DO) Problem with dialysis access (Acute) Subjective: Patient seen and examined. She had no complaints this morning. Review of systems otherwise negative. Patient still has a very flat affect. I did ask patient if she felt she was depressed. Patient onset that she thought she was sometimes depressed but not often. She has not been eating and drinking well and she says is because she does not like hospital food. Hospice has been discussed with patient and she states she is interested. Labs and vitals reviewed. Vitals/I&O's: Vital Signs Temp Pulse Resp BP Pulse Ox 98.8 F 105 H 18 114/80 99 03/15/19 07:46 03/15/19 07:46 03/15/19 07:46 03/15/19 07:46 03/15/19 07:46 Oxygen Flow Rate (L/min) 2 Oxygen Delivery Method Room Air Weight: 232 lb 9.6 oz Body Mass Index (BMI) 42.8 Finger Stick Blood Glucose 126 Intake and Output for Last 24 Hours 03/13/19 03/14/19 03/15/19 23:59 23:59 23:59 Intake Total 50 / 50 1180 / 1180 0 / 0 Output Total 0 / 0 1150 / 1150 0 / 0 Balance 50 / 50 30 / 30 0 / 0 General: Alert, Cooperative HEENT: Atraumatic, PERRLA, EOMI, Normocephalic Oral: Dry Mucosa Neck: Supple, No JVD, Negative Carotid Bruits Lungs: Clear to auscultation, Normal air movement, No rhonchi, No wheeze Cardiovascular: Regular rate, Regular Rhythm, Normal S1, Normal S2, No murmurs Abdomen: Bowel Sounds Present, Soft, Non Tender, Non-Distended, No Hepato-splenomegaly Extremities: No clubbing, No cyanosis, No edema, Capillary Refill Less than 3 Seconds, - - both LES wrapped in SHANE bandage from hip to just above knee Skin: No rashes, No breakdown, - - has dialysis catheter in chest Musculoskeletal: No Tenderness to Palpation of Joints or Extremities Lymphatic: No Cervical, Supraclavicular, or Inguinal Adenopathy Neurological: Cranial nerves II-XII grossly intact, Motor Exam 5/5 strength throughout Psych/Mental Status: - - very flat affect Microbiology Past 72 Hours 03/13/19 13:31 Tissue - Leg Gram Stain - Final 03/13/19 13:31 Tissue - Leg Wound Culture - Final Corynebacterium striatum 03/13/19 13:31 Biopsy - Tissue Gram Stain - Final 03/13/19 13:31 Biopsy - Tissue Wound Culture - Final Corynebacterium striatum Laboratory Results 03/12/19 05:12: Crossmatch See Detail 03/14/19 12:08: POC Glucose 103 03/14/19 13:40: Sodium 139, Potassium 4.7, Chloride 101, Carbon Dioxide 25.0, BUN 12, Creatinine 2.45 H, Estim Creat Clear Calc 22.34, Est GFR (MDRD) Af Amer 28 L, Est GFR (MDRD) Non-Af 23 L, BUN/Creatinine Ratio 4.9 L, Glucose 107 H, Calcium 7.9 L, Phosphorus 2.5, Albumin 1.5 L 03/14/19 16:46: POC Glucose 104 03/14/19 21:07: POC Glucose 157 H 03/15/19 06:20: WBC Pending, RBC Pending, Hgb Pending, Hct Pending, MCV Pending, MCH Pending, MCHC Pending, RDW Std Deviation Pending, RDW Coeff of Lu Pending, Plt Count Pending, Neut % (Auto) Pending, Absolute Neuts (auto) Pending 03/15/19 06:20: Sodium 136, Potassium 3.9, Chloride 102, Carbon Dioxide 18.0 L, BUN 19 H, Creatinine 3.04 H, Estim Creat Clear Calc 18.01, Est GFR (MDRD) Af Amer 22 L, Est GFR (MDRD) Non-Af 18 L, BUN/Creatinine Ratio 6.2 L, Glucose 156 H, Calcium 8.3 L, Phosphorus 2.8, Albumin 1.4 L 03/15/19 06:20: POC Glucose 155 H Current Medications Bupropion HCl (Wellbutrin Xl) 300 mg PO DAILY [facility] Last Admin: 03/14/19 12:01 Dose: 300 mg Documented by: Calamine/Phenol (Calmoseptine Ointment) 1 applic TOPICAL BID [facility]; Protocol Last Admin: 03/14/19 20:42 Dose: 1 applicatio Documented by: Glucagon () 1 mg IM .X1 PRN PRN Reason: Hypoglycemia Heparin Sodium (Porcine) (Heparin Na) 5,000 unit SC Q12 [facility] Last Admin: 03/14/19 20:47 Dose: 5,000 unit Documented by: Dextrose (Dextrose 10%-Water) 250 mls @ 999 mls/hr IV X1 PRN; Protocol PRN Reason: HYPOGLYCEMIA Ceftriaxone Sodium (Rocephin) 1 gm in 50 mls @ 100 mls/hr IV Q24 [facility] Last Infusion: 03/14/19 13:49 Dose: Infused Documented by: Nortriptyline HCl (Pamelor) 25 mg PO QHS [facility] Last Admin: 03/14/19 20:42 Dose: Not Given Documented by: Nutritional Formula (Nepro Carb Steady) 120 ml PO 4X/DAY [facility] Last Admin: 03/14/19 20:42 Dose: Not Given Documented by: Nystatin (Mycostatin Powder) 1 applic TOPICAL BID [facility]; Protocol Last Admin: 03/14/19 20:42 Dose: 1 applicatio Documented by: Ondansetron HCl (Zofran Odt) 4 mg PO Q6H PRN PRN Reason: NAUSEA/VOMITING Last Admin: 03/14/19 20:45 Dose: 4 mg Documented by: Polyethylene Glycol (Miralax) 17 gm PO DAILY [facility] Last Admin: 03/14/19 12:00 Dose: 17 gm Documented by: Pregabalin (Lyrica) 50 mg PO DAILY [facility] Last Admin: 03/14/19 12:04 Dose: 50 mg Documented by: Sodium Chloride () 10 - 40 ml IV UD PRN PRN Reason: SALINE FLUSH Last Admin: 03/14/19 12:00 Dose: 40 ml Documented by: Sodium Hypochlorite (Dakins Solution 0.25% (1/2 Strength)) 1 applic TOPICAL DAILY [facility]; Protocol Last Admin: 03/14/19 16:38 Dose: 0.25 % Documented by: Venlafaxine HCl (Effexor Xr) 75 mg PO DAILY [facility] Last Admin: 03/14/19 12:01 Dose: 75 mg Documented by: STROKE Vital Signs/Narrative: Vital Signs Temp Pulse Resp BP Pulse Ox 03/15/19 07:46 98.8 F 105 H 18 114/80 99 Medical Necessity - Tobacco Use Smoking Status: Never smoker Tobacco Use: Non-smoker Assessment/Plan All Active Problems (Last Reviewed 02/12/19 @ 20:40 by Virgil Murray, DO) Open wound of right lower extremity with complication (Acute) Open wound of left lower extremity with complication (Acute) Problem with dialysis access (Acute) Encephalopathy acute (Acute) Necrotizing soft tissue infection (Acute) Calciphylaxis (Acute) Lower extremity weakness (Acute) Generalized weakness (Acute) Syncope (Acute) 1. Infected necrotic leg wounds s/p incision and drainage as well as excisional debridement of anterolateral thighs bilaterally today is POD 2 wound cultures were positive for actinomyces plastic surgery and ID on board wbc trended down to 13.3 yesterday, but is 14.9 today. on IV ceftriaxone 2. ESRD on HD has dialysis via catheter in chest as her peritoneal dialysis catheter failed. had dialysis yesterday, with removal of 900cc of fluid. She subsequently became hypotensive, which resolved with administration of 1L of IVF bolus. nephrology on board 3. Type 2 diabetes mellitus diet controlled last A1C (02/17) was 5.6, therefore, I really doubt that patient does have diabetes mellitus, as her blood sugars have also not been elevated did have some episodes of hypoglycemia on 03/10/19, with blood sugar going as low as 46. will monitor. DVT prophylaxis: heparin Disposition: patient affirmed that she is interested in discussing palliative care and hospice today. As well as had extensive discussion with patient and her mom about need of care. Patient's mom and patient are both open to talking to the palliative care team. Consult will be placed. Mother is also concern of patient not eating and seizures not eating for the past 5 weeks.. Mother counseled that we could put patient on Remeron to help with her appetite. Code Visit Inpatient E&M: 36678 Subs Hosp L2
[2019-03-15] MEDS: Ceftriaxone 1 GM/50 ML BAG IV (11:12)
[2019-03-15] MEDS: Nystatin Powder 15gm Bottle 1 APPLIC TOPICAL ×2 (11:13→21:52)
[2019-03-15] MEDS: Menthol/Lanolin/Calamine/Znox 113 GM Tube 1 APPLIC TOPICAL ×2 (11:13→21:49)
[2019-03-15] MEDS: Venlafaxine XR 75 MG Capsule PO (11:15)
[2019-03-15] MEDS: Heparin Injection (Vial) 5,000 UNIT/ML VIAL 5000 UNIT SC ×2 (11:16→21:49)
[2019-03-15] MEDS: buPROPion (XL) 300 MG TABLET.XL PO (11:16)
[2019-03-15] MEDS: Polyethylene Glycol 3350 17 GM PACKET PO (11:16)
[2019-03-15] MEDS: Pregabalin 50 MG Capsule PO (11:19)
[2019-03-15 12:15] LABS: Bedside Glucose 157 mg/dL (70-110)
[2019-03-15 14:23] LABS: Absolute Lymphocyte Count 0.49 X10^3/uL (0.83-4.51); Absolute Neutrophil Count 13.3 X10^3/uL (2.0-7.7); Basophil# 0.02 X10^3/uL; Basophil% 0.1 % (0-1); Eosinophil# 0.01 X10^3/uL; Eosinophils% 0.1 % (0-5); Hematocrit 25.8 % (37-47); Hemoglobin 8.2 g/dL (12.0-15.0); Lymphocyte # 0.49 X10^3/ul (4.0); Lymphocyte % 3.3 % (19-41); Mean Corp Hgb Conc 31.8 g/dL (32-36); Mean Corpuscular Hgb 25.2 pg (27.0-32.0); Mean Corpuscular Volume 79.4 fL (81-99); Mean Platelet Vol. 9.9 fl (6.2-12.0); Monocyte# 0.74 X10^3/uL; NRBC Flagged by Analyzer 0.1 % (0-5); Neutrophil % 89.5 % (47-70); POSITIVE DIFFERENTIAL YES; Platelet Count 168 K/mm3 (150-450); RBC Distribution Width CV 18.5 % (11.6-14.6); RBC Distribution Width SD 53.2 fl (35.1-43.9); Red Blood Count 3.25 M/mm3 (4.2-5.4); White Blood Count 14.9 K/mm3 (4.4-11.0)
[2019-03-15 14:26] LABS: Differential Indicated SCAN CRITERIA MET
[2019-03-15 16:06] LABS: Bedside Glucose 153 mg/dL (70-110)
[2019-03-15 22:11] LABS: Bedside Glucose 171 mg/dL (70-110)
[2019-03-16] VITALS (8 sets, daily range): BP systolic 90–153; BP diastolic 45–100; PULSE 102–107; RESP 14–18; TEMP 36.8–37; O2SAT 100
[2019-03-16 05:39] LABS: Absolute Lymphocyte Count 0.48 X10^3/uL (0.83-4.51); Absolute Neutrophil Count 11.4 X10^3/uL (2.0-7.7); Basophil# 0.01 X10^3/uL; Basophil% 0.1 % (0-1); Eosinophil# 0.02 X10^3/uL; Eosinophils% 0.2 % (0-5); Hematocrit 24.9 % (37-47); Hemoglobin 8.2 g/dL (12.0-15.0); Lymphocyte # 0.48 X10^3/ul (4.0); Lymphocyte % 3.8 % (19-41); Mean Corp Hgb Conc 32.9 g/dL (32-36); Mean Corpuscular Hgb 25.5 pg (27.0-32.0); Mean Corpuscular Volume 77.6 fL (81-99); Mean Platelet Vol. 9.2 fl (6.2-12.0); Monocyte# 0.63 X10^3/uL; Monocyte% 4.9 % (0-10); NRBC Flagged by Analyzer 0 % (0-5); Neutrophil # 11.35 X10^3/uL (2.7-7.7); Neutrophil % 88.9 % (47-70); POSITIVE DIFFERENTIAL YES; Platelet Count 141 K/mm3 (150-450); RBC Distribution Width CV 18.5 % (11.6-14.6); RBC Distribution Width SD 52.8 fl (35.1-43.9); Red Blood Count 3.21 M/mm3 (4.2-5.4); White Blood Count 12.8 K/mm3 (4.4-11.0)
[2019-03-16 06:01] LABS: Differential Indicated SCAN CRITERIA MET
[2019-03-16 06:23] LABS: Differential Comment SCANNED; Target Cells 2+
[2019-03-16 06:44] LABS: Albumin, Serum 1.4 g/dL (3.2-5.0); BUN 27 mg/dL (7-18); BUN/Creat Ratio 6.8 RATIO (10-20); Calcium,Total 8.5 mg/dL (8.5-10.1); Chloride 105 mmol/L (98-107); EST Glomerular Filtration Rate 13 mL/min (>60); Est Glom Filt Rate - Afr Amer 16 mL/min (>60); Estimated Creatinine Clearance 13.68 ml/min; Glucose 182 mg/dL (74-106); Phosphorus 3.3 mg/dL (2.5-4.9); Potassium 4.1 mmol/L (3.5-5.1); Sodium Level 139 mmol/L (136-145)
[2019-03-16 07:05] LABS: Bedside Glucose 174 mg/dL (70-110)
[2019-03-16] MEDS: DAKIN'S SOL HALF STRENGTH (=0.25%) 1 APPLIC TOPICAL ×2 (08:45→21:23)
--- NOTE | 2019-03-16 08:51 | NURSING ---
wound photo: left thigh
--- NOTE | 2019-03-16 08:52 | NURSING ---
wound photo: right thigh
--- NOTE | 2019-03-16 10:14 | CASEMGMT ---
Addendum entered by Josefina Rose 03/16/19 13:11: SW faxed dialysis flowsheet to [facility]. Addendum entered by Josefina Rose 03/16/19 12:16: SW spoke with physician. Physician states she spoke with pt's mother and explained that Palliative is going to meet with pt and pt's mother once pt arrives at SNF. Physician states pt is going to get dialysis and then medically is able to discharge to SNF. SW spoke with Charge Nurse who states dialysis is currently at [facility] and hopes to be up on floor to provide dialysis for pt at 1:00pm. SW placed a call to Margie at [facility]. Margie confirms that she is able to accept pt today after pt has dialysis. Margie states that she still needs flowsheet from dialysis on Saturday. RAIZA informed Margie that this worker only has handwritten order from dialysis on Saturday. Margie states she needs the actual flowsheet. RAIZA placed a call to [employer] and spoke with JULITO Sanderson. Maria E states dialysis was done on acute side so she doesn't have access to flowsheets. RAIZA explained that flowsheets were never faxed to [facility] from Saturday and this worker needs the flowsheets for SNF. Maria E states she is not able to fax flowsheets as pt doesn't have flowsheets. RAIZA placed a call to [employer] again and spoke with Raul. Raul states that he doesn't have access to flowsheets but knows people that does have access. RAIZA asked Raul to please fax HD flowsheet to this worker so this worker can fax flowsheet to SNF. Raul states understanding. Plan: Discharge to [facility] once dialysis is complete. SW to arrange transportation once dialysis is at [facility] Original Note: Social Work Note Pt is still at [facility]. RAIZA updated physician that this worker is aware that Palliative Care consult has been made. RAIZA explained that this worker left message for SW at [facility] to make Palliative Care referral once pt arrives to SNF as this worker is not sure which Palliative Care company the SNF uses and then Palliative Care can meet with pt and pt's family once pt arrives to [facility]. RAIZA spoke with Margie at [facility]. Margie states pt will need to receive dialysis today at [facility] and then can discharge to SNF. Pt will be on new M-W-F dialysis schedule at [facility]. Margie also states she still needs three most recent dialysis flowsheets. SW updated Margie that this worker did call [employer] on Saturday and asked for them to fax over flowsheets. Margie states she didn't receive any faxes from [employer]. SW updated Margie that this worker will send over flowsheets that this worker has available. SW faxed updated clinicals to [facility]. SW updated charge nurse that pt will need to get dialysis today and then could discharge to [facility] if Dr. Cuevas is agreeable to discharge. Charge Nurse states understanding. Plan: Pt will need to get dialysis today at [facility]. Pt if medically cleared could discharge to SNF after dialysis today or tomorrow. SW to continue to follow, will update pt's mother when discharge is confirmed. Josefina Rose [employer]
[2019-03-16] MEDS: Menthol/Lanolin/Calamine/Znox 113 GM Tube 1 APPLIC TOPICAL (10:52)
[2019-03-16] MEDS: Ceftriaxone 1 GM/50 ML BAG IV (10:54)
[2019-03-16] MEDS: Heparin Injection (Vial) 5,000 UNIT/ML VIAL 5000 UNIT SC (10:54)
[2019-03-16] MEDS: Nystatin Powder 15gm Bottle 1 APPLIC TOPICAL (10:59)
--- NOTE | 2019-03-16 11:04 | TREXTCAR_ITS ---
- Diet 03/10/19 18:20 Diet: Calorie Controlled Is pt able to select menu?: Yes How many daily calories?: 1800 calorie - Routine Orders/Code Status Enema Type: Fleetz Enema Frequency: Daily PRN Suppository Type: Dulcolax 10mg Suppository Frequency: Daily PRN - Wound(s) LEFT THIGH Wound Type: Surgical Incision Dressing Change: Dakins moistened gauze RIGHT THIGH Wound Type: Surgical Incision Dressing Change: Dakins moistened gauze Left Abd fold Wound Type: ulcers Dressing Change: Dry Sterile Dressing Right abd fold Wound Type: ulcers Dressing Change: Dry Sterile Dressing Left umbilical abd Wound Type: scab Right umicial abd Wound Type: scab Left buttock Wound Type: open area left abd Wound Type: Surgical Incision Dressing Change: Dry Sterile Dressing rt lower back Wound Type: large scabbed area rt neck Wound Type: prior cath site - Therapies Weight Bearing: Weight bearing as tolerated Physical Therapy: Eval and Treat Occupational Therapy: Eval and Treat - Allergies/Procedures Done in Hospital Allergies/Adverse Reactions: Allergies ciprofloxacin [From Cipro] Adverse Reaction (Verified 03/09/19 13:53) Vomiting contrast dye Allergy (Severe, Uncoded 03/09/19 13:53) Anaphylaxis Procedures: None - Type of Care/Length of Stay Estimated LOS: Convalescent Care Less Than 30 days Type of Care Needed: Skilled Rehab Potential: Poor Prognosis: Poor - Additional Orders/Day of Discharge Additional Orders: to be seen by Palliative care team in Skilled Nursing. to have dialysis Mondays, Wednesdays and Fridays. Day of Discharge: 03/16/19 - Dietary and Speech Recommendations Dietitian Recommendations/Changes: When medically able, rec HAL to CHO controlled, low sodium w/ fluid restriction as indicated. Rec Graeme 1 packet BID as pt w/ high protein needs d/t wounds and hemodialysis treatments -- order through pharmacy. Will continue to provide pt beneprotein at meals. Will continue to provide Nepro Carb steady 120 ml PO 4x/day. - Follow Up Care Primary Care Physician: Melvi Eastman MD [Primary Care Provider] - Please follow up with your Primary Care Physician in: one week Please Follow Up With: Betty Odonnell DO When: 1-2 weeks Please Follow Up With: Erick Cuevas MD When: 1-2 weeks Please Follow Up With: Mohinder Hernández MD When: 1-2 weeks
--- NOTE | 2019-03-16 11:37 | PCM.DC.SUM ---
Discharge Date and Diagnosis - Problem List Patient Problems: Active and Suspected Problems (Last Reviewed 02/12/19 @ 20:40 by Virgil Murray DO) Problem with dialysis access (Acute) Date of Admission: 03/09/19 - Primary Discharge Diagnosis Active and Suspected Problems (Last Reviewed 02/12/19 @ 20:40 by Virgil Murray DO) Problem with dialysis access (Acute) - Secondary Discharge Diagnosis Chronic Problems (Last Reviewed 02/12/19 @ 20:40 by Virgil Murray DO) Anemia in chronic illness (Chronic) Ulcer of right thigh (Chronic) Ulcer of left thigh (Chronic) Skin necrosis (Chronic) bilateral thighs Patient on peritoneal dialysis (Chronic) ESRD (end stage renal disease) (Chronic) Debility (Chronic) Gastroparesis (Chronic) Orthostatic hypotension (Chronic) Chronic renal failure, stage 4 (severe) (Chronic) Morbid obesity (Chronic) HTN (hypertension) (Chronic) Bilateral hydronephrosis (Chronic) Iron deficiency anemia (Chronic) Type II diabetes mellitus (Chronic) Coronary artery disease (Chronic) Chronic low back pain (Chronic) Hydroureter (Chronic) Bladder outlet obstruction (Chronic) Hospital Course and Treatment Consultations 03/09/19 16:53 Consult: Onc/Wound/oracle reports developer Routine Comment: Operations: None Summary of Care Provided: The patient is a 43 year old F [] Patient Problems: Active and Suspected Problems (Last Reviewed 02/12/19 @ 20:40 by Virgil Murray DO) Problem with dialysis access (Acute) - Physical Exam Vitals/I&O's: Vital Signs Temp Pulse Resp BP Pulse Ox 98.2 F 102 H 14 151/100 H 100 03/16/19 08:17 03/16/19 08:17 03/16/19 08:17 03/16/19 08:17 03/16/19 08:17 Oxygen Flow Rate (L/min) 100 Oxygen Delivery Method Room Air Weight: 232 lb 5.875 oz Body Mass Index (BMI) 42.8 Finger Stick Blood Glucose 126 Intake and Output for Last 24 Hours 03/14/19 03/15/19 03/16/19 23:59 23:59 23:59 Intake Total 1180 / 1180 50 / 50 110 / 110 Output Total 1150 / 1150 50 / 50 Balance 30 / 30 0 / 0 110 / 110 Microbiology Past 72 Hours 03/13/19 13:31 Tissue - Leg Gram Stain - Final 03/13/19 13:31 Tissue - Leg Wound Culture - Final Corynebacterium striatum 03/13/19 13:31 Biopsy - Tissue Gram Stain - Final 03/13/19 13:31 Biopsy - Tissue Wound Culture - Final Corynebacterium striatum Laboratory Results 03/15/19 06:20: WBC Cancelled, Corrected WBC Cancelled, RBC Cancelled, Hgb Cancelled, Hct Cancelled, MCV Cancelled, MCH Cancelled, MCHC Cancelled, RDW Std Deviation Cancelled, RDW Coeff of Lu Cancelled, Plt Count Cancelled, MPV Cancelled, Immature Gran % (Auto) Cancelled, Neut % (Auto) Cancelled, Lymph % (Auto) Cancelled, [place] % (Auto) Cancelled, Eos % (Auto) Cancelled, Baso % (Auto) Cancelled, Absolute Neuts (auto) Cancelled, Absolute Lymphs (auto) Cancelled, Total Counted Cancelled, Neutrophils % (Manual) Cancelled, Band Neutrophils % Cancelled, Lymphocytes % (Manual) Cancelled, Monocytes % (Manual) Cancelled, Eosinophils % (Manual) Cancelled, Basophils % (Manual) Cancelled, Metamyelocytes % Cancelled, Myelocytes % Cancelled, Promyelocytes % Cancelled, Blast Cells % Cancelled, Plasma Cell % (Manual) Cancelled, Other Cells % Cancelled, Nucleated RBC % Cancelled, Nucleated RBCs/100 WBC Cancelled, Differential Comment Cancelled, Diff Path Review Cancelled, Hypersegmented Neuts Cancelled, Atypical Lymphocytes Cancelled, Reactive Lymphocytes Cancelled, Smudge Cells Cancelled, Toxic Granulation Cancelled, Toxic Vacuolation Cancelled, Dohle Bodies Cancelled, Stuart Rods Cancelled, Platelet Estimate Cancelled, Plt Morphology Comment Cancelled, RBC Morphology Cancelled, Polychromasia Cancelled, Hypochromasia Cancelled, Poikilocytosis Cancelled, Basophilic Stippling Cancelled, Anisocytosis Cancelled, Microcytosis Cancelled, Macrocytosis Cancelled, Spherocytes Cancelled, Sickle Cells Cancelled, Target Cells Cancelled, Tear Drop Cells Cancelled, Ovalocytes Cancelled, Stomatocytes Cancelled, [place] Bodies Cancelled, [place] Cells Cancelled, Bite Cells Cancelled, Crenated Cell Cancelled, Acanthocytes (Spur) Cancelled, Rouleaux Cancelled, Schistocytes Cancelled 03/15/19 12:08: POC Glucose 157 H 03/15/19 13:30: WBC 14.9 H, RBC 3.25 L, Hgb 8.2 L, Hct 25.8 L, MCV 79.4 L, MCH 25.2 L, MCHC 31.8 L, RDW Std Deviation 53.2 H, RDW Coeff of Lu 18.5 H, Plt Count 168, MPV 9.9, Immature Gran % (Auto) 2.000 H, Neut % (Auto) 89.5 H, Lymph % (Auto) 3.3 L, [place] % (Auto) 5.0, Eos % (Auto) 0.1, Baso % (Auto) 0.1, Absolute Neuts (auto) 13.3 H, Absolute Lymphs (auto) 0.49 L, Nucleated RBC % 0.1 03/15/19 15:57: POC Glucose 153 H 03/15/19 21:58: POC Glucose 171 H 03/16/19 05:30: WBC 12.8 H, RBC 3.21 L, Hgb 8.2 L, Hct 24.9 L, MCV 77.6 L, MCH 25.5 L, MCHC 32.9, RDW Std Deviation 52.8 H, RDW Coeff of Lu 18.5 H, Plt Count 141 L, MPV 9.2, Immature Gran % (Auto) 2.100 H, Neut % (Auto) 88.9 H, Lymph % (Auto) 3.8 L, [place] % (Auto) 4.9, Eos % (Auto) 0.2, Baso % (Auto) 0.1, Absolute Neuts (auto) 11.4 H, Absolute Lymphs (auto) 0.48 L, Nucleated RBC % 0, Differential Comment SCANNED, Target Cells 2+ 03/16/19 05:30: Sodium 139, Potassium 4.1, Chloride 105, Carbon Dioxide 23.0, BUN 27 H, Creatinine 4.00 H, Estim Creat Clear Calc 13.68, Est GFR (MDRD) Af Amer 16 L, Est GFR (MDRD) Non-Af 13 L, BUN/Creatinine Ratio 6.8 L, Glucose 182 H, Calcium 8.5, Phosphorus 3.3, Albumin 1.4 L 03/16/19 06:45: POC Glucose 174 H Current Medications Bupropion HCl (Wellbutrin Xl) 300 mg PO DAILY [facility] Last Admin: 03/16/19 10:59 Dose: Not Given Documented by: Calamine/Phenol (Calmoseptine Ointment) 1 applic TOPICAL BID [facility]; Protocol Last Admin: 03/16/19 10:52 Dose: 1 applicatio Documented by: Glucagon () 1 mg IM .X1 PRN PRN Reason: Hypoglycemia Heparin Sodium (Porcine) (Heparin Na) 5,000 unit SC Q12 [facility] Last Admin: 03/16/19 10:54 Dose: 5,000 unit Documented by: Dextrose (Dextrose 10%-Water) 250 mls @ 999 mls/hr IV X1 PRN; Protocol PRN Reason: HYPOGLYCEMIA Ceftriaxone Sodium (Rocephin) 1 gm in 50 mls @ 100 mls/hr IV Q24 [facility] Last Infusion: 03/16/19 11:24 Dose: Infused Documented by: Mirtazapine (Remeron) 15 mg PO QHS [facility] Last Admin: 03/15/19 22:03 Dose: Not Given Documented by: Nutritional Formula (Nepro Carb Steady) 120 ml PO 4X/DAY [facility] Last Admin: 03/16/19 10:58 Dose: Not Given Documented by: Nystatin (Mycostatin Powder) 1 applic TOPICAL BID [facility]; Protocol Last Admin: 03/16/19 10:59 Dose: 1 applicatio Documented by: Ondansetron HCl (Zofran Odt) 4 mg PO Q6H PRN PRN Reason: NAUSEA/VOMITING Last Admin: 03/14/19 20:45 Dose: 4 mg Documented by: Polyethylene Glycol (Miralax) 17 gm PO DAILY [facility] Last Admin: 03/16/19 10:58 Dose: Not Given Documented by: Pregabalin (Lyrica) 50 mg PO DAILY [facility] Last Admin: 03/16/19 10:58 Dose: Not Given Documented by: Sodium Chloride () 10 - 40 ml IV UD PRN PRN Reason: SALINE FLUSH Last Admin: 03/14/19 12:00 Dose: 40 ml Documented by: Sodium Hypochlorite (Dakins Solution 0.25% (1/2 Strength)) 1 applic TOPICAL DAILY [facility]; Protocol Last Admin: 03/16/19 08:45 Dose: 1 applicatio Documented by: Venlafaxine HCl (Effexor Xr) 75 mg PO DAILY [facility] Last Admin: 03/16/19 10:58 Dose: Not Given Documented by: Home Medications: Medications to take at Discharge Ergocalciferol [Vitamin D] 50,000 unit PO WE 04/18/17 Aspirin E.C. [Ecotrin] 81 mg PO DAILY@0800 07/15/18 Bupropion HCl [Bupropion Xl] 300 mg PO DAILY 09/22/18 Ondansetron [Zofran Odt] 4 mg PO Q8H PRN PRN #10 tab 02/12/19 Docusate Sodium [Colace] 100 mg PO BID cap 02/23/19 Nepro with Carbsteady [Nepro Carb Steady] 120 ml PO TIDCM liquid 02/23/19 Polyethylene Glycol 3350 [Miralax] 17 gm PO DAILY packet 02/23/19 Furosemide 40 mg PO DAILY 02/25/19 Pregabalin [Lyrica] 50 mg PO DAILY #0 02/27/19 Nystatin [Nystop] 60 gm TP BID 03/09/19 Venlafaxine HCl [Venlafaxine HCl ER] 75 mg PO DAILY 03/09/19 Ceftriaxone Sodium [Ceftriaxone] 1 gm IM DAILY 30 Days #30 vial 03/13/19 Mirtazapine [Remeron] 15 mg PO QHS #30 tab 03/16/19 Oxycodone HCl/Acetaminophen [Percocet 5-325 mg Tablet] 1 ea PO Q6H PRN PRN 3 Days #12 tab 03/16/19 Following Prescrptions Were Given to Patient: Ceftriaxone Sodium [Ceftriaxone] 1 gm IM DAILY 30 Days #30 vial Prescription Printed Oxycodone HCl/Acetaminophen [Percocet 5-325 mg Tablet] 1 ea PO Q6H PRN PRN 3 Days #12 tab PRN Reason: pain Prescription Printed Mirtazapine [Remeron] 15 mg PO QHS #30 tab Prescription Printed Primary Care Physician: Melvi Eastman MD [Primary Care Provider] - Please follow up with your Primary Care Physician in: one week Please Follow Up With: Betty Odonnell DO When: 1-2 weeks Please Follow Up With: Erick Cuevas MD When: 1-2 weeks Please Follow Up With: Mohinder Hernández MD When: 1-2 weeks Medical Necessity - Tobacco Use Smoking Status: Never smoker Tobacco Use: Non-smoker
[2019-03-16 11:41] LABS: Bedside Glucose 197 mg/dL (70-110)
--- NOTE | 2019-03-16 13:53 | PCM.PN.REN ---
Patient Problems: Active and Suspected Problems (Last Reviewed 02/12/19 @ 20:40 by Virgil Murray DO) Problem with dialysis access (Acute) Subjective: dialysis set up today to get on MWF schedule at [facility] upon discharge. Pt mom at bedside. Currently lethargic. Reported to be awake, responsive earlier with wound care. Discussed palliative care provided in [place] at [facility]. No hospice at this time. - Physical Exam Vitals/I&O's: Vital Signs Temp Pulse Resp BP Pulse Ox 98.2 F 104 H 14 151/100 H 100 03/16/19 08:17 03/16/19 09:10 03/16/19 08:17 03/16/19 08:17 03/16/19 08:17 Oxygen Flow Rate (L/min) 100 Oxygen Delivery Method Room Air Weight: 105.4 kg Body Mass Index (BMI) 42.8 Finger Stick Blood Glucose 126 Intake and Output for Last 24 Hours 03/14/19 03/15/19 03/16/19 23:59 23:59 23:59 Intake Total 1180 / 1180 50 / 50 110 / 110 Output Total 1150 / 1150 50 / 50 0 / 0 Balance 30 / 30 0 / 0 110 / 110 General: Lethargic Lungs: Clear to auscultation Cardiovascular: Regular rate Abdomen: Soft, Non Tender, Non-Distended, Obese Extremities: No edema Neurological: - - lethargic Microbiology Past 72 Hours 03/13/19 13:31 Tissue - Leg Gram Stain - Final 03/13/19 13:31 Tissue - Leg Wound Culture - Final Corynebacterium striatum 03/13/19 13:31 Tissue - Leg Anaerobic Culture - Preliminary Checking for anaerobes, further studies to follow. 03/13/19 13:31 Biopsy - Tissue Gram Stain - Final 03/13/19 13:31 Biopsy - Tissue Wound Culture - Final Corynebacterium striatum 03/13/19 13:31 Biopsy - Tissue Anaerobic Culture - Preliminary Checking for anaerobes, further studies to follow. Laboratory Results 03/15/19 06:20: WBC Cancelled, Corrected WBC Cancelled, RBC Cancelled, Hgb Cancelled, Hct Cancelled, MCV Cancelled, MCH Cancelled, MCHC Cancelled, RDW Std Deviation Cancelled, RDW Coeff of Lu Cancelled, Plt Count Cancelled, MPV Cancelled, Immature Gran % (Auto) Cancelled, Neut % (Auto) Cancelled, Lymph % (Auto) Cancelled, [place] % (Auto) Cancelled, Eos % (Auto) Cancelled, Baso % (Auto) Cancelled, Absolute Neuts (auto) Cancelled, Absolute Lymphs (auto) Cancelled, Total Counted Cancelled, Neutrophils % (Manual) Cancelled, Band Neutrophils % Cancelled, Lymphocytes % (Manual) Cancelled, Monocytes % (Manual) Cancelled, Eosinophils % (Manual) Cancelled, Basophils % (Manual) Cancelled, Metamyelocytes % Cancelled, Myelocytes % Cancelled, Promyelocytes % Cancelled, Blast Cells % Cancelled, Plasma Cell % (Manual) Cancelled, Other Cells % Cancelled, Nucleated RBC % Cancelled, Nucleated RBCs/100 WBC Cancelled, Differential Comment Cancelled, Diff Path Review Cancelled, Hypersegmented Neuts Cancelled, Atypical Lymphocytes Cancelled, Reactive Lymphocytes Cancelled, Smudge Cells Cancelled, Toxic Granulation Cancelled, Toxic Vacuolation Cancelled, Dohle Bodies Cancelled, Stuart Rods Cancelled, Platelet Estimate Cancelled, Plt Morphology Comment Cancelled, RBC Morphology Cancelled, Polychromasia Cancelled, Hypochromasia Cancelled, Poikilocytosis Cancelled, Basophilic Stippling Cancelled, Anisocytosis Cancelled, Microcytosis Cancelled, Macrocytosis Cancelled, Spherocytes Cancelled, Sickle Cells Cancelled, Target Cells Cancelled, Tear Drop Cells Cancelled, Ovalocytes Cancelled, Stomatocytes Cancelled, [place] Bodies Cancelled, [place] Cells Cancelled, Bite Cells Cancelled, Crenated Cell Cancelled, Acanthocytes (Spur) Cancelled, Rouleaux Cancelled, Schistocytes Cancelled 03/15/19 13:30: WBC 14.9 H, RBC 3.25 L, Hgb 8.2 L, Hct 25.8 L, MCV 79.4 L, MCH 25.2 L, MCHC 31.8 L, RDW Std Deviation 53.2 H, RDW Coeff of Lu 18.5 H, Plt Count 168, MPV 9.9, Immature Gran % (Auto) 2.000 H, Neut % (Auto) 89.5 H, Lymph % (Auto) 3.3 L, [place] % (Auto) 5.0, Eos % (Auto) 0.1, Baso % (Auto) 0.1, Absolute Neuts (auto) 13.3 H, Absolute Lymphs (auto) 0.49 L, Nucleated RBC % 0.1 03/15/19 15:57: POC Glucose 153 H 03/15/19 21:58: POC Glucose 171 H 03/16/19 05:30: WBC 12.8 H, RBC 3.21 L, Hgb 8.2 L, Hct 24.9 L, MCV 77.6 L, MCH 25.5 L, MCHC 32.9, RDW Std Deviation 52.8 H, RDW Coeff of Lu 18.5 H, Plt Count 141 L, MPV 9.2, Immature Gran % (Auto) 2.100 H, Neut % (Auto) 88.9 H, Lymph % (Auto) 3.8 L, [place] % (Auto) 4.9, Eos % (Auto) 0.2, Baso % (Auto) 0.1, Absolute Neuts (auto) 11.4 H, Absolute Lymphs (auto) 0.48 L, Nucleated RBC % 0, Differential Comment SCANNED, Target Cells 2+ 03/16/19 05:30: Sodium 139, Potassium 4.1, Chloride 105, Carbon Dioxide 23.0, BUN 27 H, Creatinine 4.00 H, Estim Creat Clear Calc 13.68, Est GFR (MDRD) Af Amer 16 L, Est GFR (MDRD) Non-Af 13 L, BUN/Creatinine Ratio 6.8 L, Glucose 182 H, Calcium 8.5, Phosphorus 3.3, Albumin 1.4 L 03/16/19 06:45: POC Glucose 174 H 03/16/19 11:24: POC Glucose 197 H Current Medications Bupropion HCl (Wellbutrin Xl) 300 mg PO DAILY [facility] Last Admin: 03/16/19 10:59 Dose: Not Given Documented by: Calamine/Phenol (Calmoseptine Ointment) 1 applic TOPICAL BID [facility]; Protocol Last Admin: 03/16/19 10:52 Dose: 1 applicatio Documented by: Glucagon () 1 mg IM .X1 PRN PRN Reason: Hypoglycemia Heparin Sodium (Porcine) (Heparin Na) 5,000 unit SC Q12 [facility] Last Admin: 03/16/19 10:54 Dose: 5,000 unit Documented by: Dextrose (Dextrose 10%-Water) 250 mls @ 999 mls/hr IV X1 PRN; Protocol PRN Reason: HYPOGLYCEMIA Ceftriaxone Sodium (Rocephin) 1 gm in 50 mls @ 100 mls/hr IV Q24 [facility] Last Infusion: 03/16/19 11:24 Dose: Infused Documented by: Mirtazapine (Remeron) 15 mg PO QHS [facility] Last Admin: 03/15/19 22:03 Dose: Not Given Documented by: Nutritional Formula (Nepro Carb Steady) 120 ml PO 4X/DAY [facility] Last Admin: 03/16/19 13:05 Dose: Not Given Documented by: Nystatin (Mycostatin Powder) 1 applic TOPICAL BID [facility]; Protocol Last Admin: 03/16/19 10:59 Dose: 1 applicatio Documented by: Ondansetron HCl (Zofran Odt) 4 mg PO Q6H PRN PRN Reason: NAUSEA/VOMITING Last Admin: 03/14/19 20:45 Dose: 4 mg Documented by: Polyethylene Glycol (Miralax) 17 gm PO DAILY [facility] Last Admin: 03/16/19 10:58 Dose: Not Given Documented by: Pregabalin (Lyrica) 50 mg PO DAILY [facility] Last Admin: 03/16/19 10:58 Dose: Not Given Documented by: Sodium Chloride () 10 - 40 ml IV UD PRN PRN Reason: SALINE FLUSH Last Admin: 03/14/19 12:00 Dose: 40 ml Documented by: Sodium Hypochlorite (Dakins Solution 0.25% (1/2 Strength)) 1 applic TOPICAL DAILY [facility]; Protocol Last Admin: 03/16/19 08:45 Dose: 1 applicatio Documented by: Venlafaxine HCl (Effexor Xr) 75 mg PO DAILY [facility] Last Admin: 03/16/19 10:58 Dose: Not Given Documented by: Medical Necessity - Tobacco Use Smoking Status: Never smoker Tobacco Use: Non-smoker Assessment/Plan All Active Problems (Last Reviewed 02/12/19 @ 20:40 by Virgil Murray DO) Open wound of right lower extremity with complication (Acute) Open wound of left lower extremity with complication (Acute) Problem with dialysis access (Acute) Encephalopathy acute (Acute) Necrotizing soft tissue infection (Acute) Calciphylaxis (Acute) Lower extremity weakness (Acute) Generalized weakness (Acute) Syncope (Acute) 1. ESRD change HD TTS to MWF to follow dialysis schedule at [facility] in [place]. Currently started on dialysis. Palliative care discussed. 2. Anemia VIVIAN on dialysis, s/p prbc. Hgb dropped after debridement. PRBC as needed 3. Severe debility. 4. Wound infection s/p debridement, antibx per ID [facility] hospitalist, pt mother at bedside.
--- NOTE | 2019-03-16 14:11 | CASEMGMT ---
Addendum entered by Josefina Rose 03/16/19 14:36: SW received call from Margie at [facility]. SW updated Margie that pt is now discharging tomorrow at 8:45am. SW updated Margie that staff will fax signed medication list tomorrow morning when available. SW did update Margie that this worker left message for SW at [facility] to make Palliative Care referral and asked for Margie to follow up. Margie states she will do so. Original Note: Social Work Note SW updated that pt's mother is requesting transportation be arranged tomorrow as pt is getting dialysis and doesn't want pt to be transported late tonight. Physician is going to keep pt today, requests transportation be arranged tomorrow morning. SW placed a call to [facility] and arranged transportation via cot for 8:45am tomorrow. Transportation form completed and placed on SNF folder and copy on pt's chart. SW in to speak with pt and pt's mom Veronica present in room. SW updated pt and Veronica that transportation is arranged for 8:45am tomorrow morning. SW provided Veronica with [facility] address and phone number. Veronica asked about Palliative Care. SW updated Veronica that this worker left message for SW at [facility] to arrange Palliative Care meeting once arrives to SNF. SW explained that this worker doesn't know which Palliative Care company [facility] uses. Veronica states understanding. Physician updated on transportation time for tomorrow. RAIZA updated hospice patient care secretary, charge nurse and RN that signed medication list will need to be faxed tomorrow morning. This worker faxed transfer to extended care facility and signed scripts to [facility] today. Original in SNF folder and copy on pt's chart. RAIZA also completed [facility]escent [facility] in [facility] and original in SNF folder and copy on pt's chart. RAIZA placed Palliative Care screening tool in pt's SNF folder. RAIZA attempted to call Margie at [facility], Margie busy at this time asked for Margie to give this worker a call back when she is available. RAIZA placed updated green sheet and fax coversheet on pt's chart. Plan: [facility] skilled tomorrow with [facility] transporting via cot at 8:45am. [facility] or charge nurse will need to fax signed medication list tomorrow when completed. Josefina Rose MEDICAL STAFF MANAGER, CALENDER LET OFF HELPER
[2019-03-16 14:58] LABS: Ammonia < 10.0 umol/L (11-32)
--- NOTE | 2019-03-16 15:30 | PN.ID_ITS ---
Patient Problems: Active and Suspected Problems (Last Reviewed 02/12/19 @ 20:40 by Virgil Murray DO) Problem with dialysis access (Acute) Subjective: No fever, HD this afternoon, transfer planned for tomorrow. - Physical Exam Vitals/I&O's: Vital Signs Temp Pulse Resp BP Pulse Ox 98.2 F 104 H 14 90/45 L 100 03/16/19 08:17 03/16/19 09:10 03/16/19 08:17 03/16/19 15:10 03/16/19 08:17 Oxygen Flow Rate (L/min) 100 Oxygen Delivery Method Room Air Weight: 105.4 kg Body Mass Index (BMI) 42.8 Finger Stick Blood Glucose 126 Intake and Output for Last 24 Hours 03/14/19 03/15/19 03/16/19 23:59 23:59 23:59 Intake Total 1180 / 1180 50 / 50 110 / 110 Output Total 1150 / 1150 50 / 50 0 / 0 Balance 30 / 30 0 / 0 110 / 110 General: No apparent distress Lungs: Clear to auscultation, Normal air movement Cardiovascular: Regular rate, Regular Rhythm Abdomen: Soft, Non Tender, Non-Distended Skin: Ulcer/ Wound - reviewed photos Microbiology Past 72 Hours 03/13/19 13:31 Tissue - Leg Gram Stain - Final 03/13/19 13:31 Tissue - Leg Wound Culture - Final Corynebacterium striatum 03/13/19 13:31 Tissue - Leg Anaerobic Culture - Preliminary Checking for anaerobes, further studies to follow. 03/13/19 13:31 Biopsy - Tissue Gram Stain - Final 03/13/19 13:31 Biopsy - Tissue Wound Culture - Final Corynebacterium striatum 03/13/19 13:31 Biopsy - Tissue Anaerobic Culture - Preliminary Checking for anaerobes, further studies to follow. Laboratory Results 03/15/19 15:57: POC Glucose 153 H 03/15/19 21:58: POC Glucose 171 H 03/16/19 05:30: WBC 12.8 H, RBC 3.21 L, Hgb 8.2 L, Hct 24.9 L, MCV 77.6 L, MCH 25.5 L, MCHC 32.9, RDW Std Deviation 52.8 H, RDW Coeff of Lu 18.5 H, Plt Count 141 L, MPV 9.2, Immature Gran % (Auto) 2.100 H, Neut % (Auto) 88.9 H, Lymph % (Auto) 3.8 L, [place] % (Auto) 4.9, Eos % (Auto) 0.2, Baso % (Auto) 0.1, Absolute Neuts (auto) 11.4 H, Absolute Lymphs (auto) 0.48 L, Nucleated RBC % 0, Differential Comment SCANNED, Target Cells 2+ 03/16/19 05:30: Sodium 139, Potassium 4.1, Chloride 105, Carbon Dioxide 23.0, BUN 27 H, Creatinine 4.00 H, Estim Creat Clear Calc 13.68, Est GFR (MDRD) Af Amer 16 L, Est GFR (MDRD) Non-Af 13 L, BUN/Creatinine Ratio 6.8 L, Glucose 182 H , Calcium 8.5, Phosphorus 3.3, Albumin 1.4 L 03/16/19 06:45: POC Glucose 174 H 03/16/19 11:24: POC Glucose 197 H 03/16/19 14:28: Ammonia < 10.0 L Current Medications Bupropion HCl (Wellbutrin Xl) 300 mg PO DAILY [facility] Last Admin: 03/16/19 10:59 Dose: Not Given Documented by: Calamine/Phenol (Calmoseptine Ointment) 1 applic TOPICAL BID [facility]; Protocol Last Admin: 03/16/19 10:52 Dose: 1 applicatio Documented by: Glucagon () 1 mg IM .X1 PRN PRN Reason: Hypoglycemia Heparin Sodium (Porcine) (Heparin Na) 5,000 unit SC Q12 [facility] Last Admin: 03/16/19 10:54 Dose: 5,000 unit Documented by: Dextrose (Dextrose 10%-Water) 250 mls @ 999 mls/hr IV X1 PRN; Protocol PRN Reason: HYPOGLYCEMIA Ceftriaxone Sodium (Rocephin) 1 gm in 50 mls @ 100 mls/hr IV Q24 [facility] Last Infusion: 03/16/19 11:24 Dose: Infused Documented by: Mirtazapine (Remeron) 15 mg PO QHS [facility] Last Admin: 03/15/19 22:03 Dose: Not Given Documented by: Nutritional Formula (Nepro Carb Steady) 120 ml PO 4X/DAY [facility] Last Admin: 03/16/19 13:05 Dose: Not Given Documented by: Nystatin (Mycostatin Powder) 1 applic TOPICAL BID [facility]; Protocol Last Admin: 03/16/19 10:59 Dose: 1 applicatio Documented by: Ondansetron HCl (Zofran Odt) 4 mg PO Q6H PRN PRN Reason: NAUSEA/VOMITING Last Admin: 03/14/19 20:45 Dose: 4 mg Documented by: Polyethylene Glycol (Miralax) 17 gm PO DAILY [facility] Last Admin: 03/16/19 10:58 Dose: Not Given Documented by: Pregabalin (Lyrica) 50 mg PO DAILY [facility] Last Admin: 03/16/19 10:58 Dose: Not Given Documented by: Sodium Chloride () 10 - 40 ml IV UD PRN PRN Reason: SALINE FLUSH Last Admin: 03/14/19 12:00 Dose: 40 ml Documented by: Sodium Hypochlorite (Dakins Solution 0.25% (1/2 Strength)) 1 applic TOPICAL DAILY [facility]; Protocol Last Admin: 03/16/19 08:45 Dose: 1 applicatio Documented by: Venlafaxine HCl (Effexor Xr) 75 mg PO DAILY [facility] Last Admin: 03/16/19 10:58 Dose: Not Given Documented by: Medical Necessity - Tobacco Use Smoking Status: Never smoker Tobacco Use: Non-smoker Route of nutrition/ use of supplements: [] Nutritional Intake: [] IV Site: [] Ross Catheter: [] - Assessment/Plan Antibiotics: [] Assessment/Plan: [] Active and Suspected Problems (Last Reviewed 02/12/19 @ 20:40 by Virgil Murray DO) Problem with dialysis access (Acute) Actinomyces infected wounds with ESRD - Now s/p OR 03/[address] Cuevas. Limited options based on ESRD, lack of access, and susceptibilities of actino. Repeat cxs also with diphtheroids. Currently on IV ceftriaxone. Plan on continuing ceftriaxone IM after discharge until she enters hospice care after the holidays. Have wrote rx. Will follow, d/w community case manager
--- NOTE | 2019-03-16 15:41 | PN_ITS ---
Patient Problems: Active and Suspected Problems (Last Reviewed 02/12/19 @ 20:40 by Virgil Murray DO) Problem with dialysis access (Acute) Subjective: Patient seen and examined. She was having dressing change at time of review. She had no complaints and felt well. She did have some pain from dressing change. Review of systems otherwise negative. Patient has been quite lethargic and has not been eating. Nortriptyline was discontinued yesterday and patient was started on Remeron to help with appetite. However patient refused Remeron yesterday. Review of stems otherwise negative. Labs and vitals reviewed. Vitals/I&O's: Vital Signs Temp Pulse Resp BP Pulse Ox 98.2 F 104 H 14 90/45 L 100 03/16/19 08:17 03/16/19 09:10 03/16/19 08:17 03/16/19 15:10 03/16/19 08:17 Oxygen Flow Rate (L/min) 100 Oxygen Delivery Method Room Air Weight: 232 lb 5.875 oz Body Mass Index (BMI) 42.8 Finger Stick Blood Glucose 126 Intake and Output for Last 24 Hours 03/14/19 03/15/19 03/16/19 23:59 23:59 23:59 Intake Total 1180 / 1180 50 / 50 110 / 110 Output Total 1150 / 1150 50 / 50 0 / 0 Balance 30 / 30 0 / 0 110 / 110 General: Alert, Cooperative, lethargic HEENT: Atraumatic, PERRLA, EOMI, Normocephalic Oral: Dry Mucosa Neck: Supple, No JVD, Negative Carotid Bruits Lungs: Clear to auscultation, Normal air movement, No rhonchi, No wheeze Cardiovascular: Regular rate, Regular Rhythm, Normal S1, Normal S2, No murmurs Abdomen: Bowel Sounds Present, Soft, Non Tender, Non-Distended, No Hepato- splenomegaly Extremities: No clubbing, No cyanosis, No edema, Capillary Refill Less than 3 Seconds, - - dressing over anterior thighs Skin: No rashes, No breakdown, - - has dialysis catheter in chest Musculoskeletal: No Tenderness to Palpation of Joints or Extremities Lymphatic: No Cervical, Supraclavicular, or Inguinal Adenopathy Neurological: Cranial nerves II-XII grossly intact, Motor Exam 5/5 strength throughout Psych/Mental Status: - - very flat affect Microbiology Past 72 Hours 03/13/19 13:31 Tissue - Leg Gram Stain - Final 03/13/19 13:31 Tissue - Leg Wound Culture - Final Corynebacterium striatum 03/13/19 13:31 Tissue - Leg Anaerobic Culture - Preliminary Checking for anaerobes, further studies to follow. 03/13/19 13:31 Biopsy - Tissue Gram Stain - Final 03/13/19 13:31 Biopsy - Tissue Wound Culture - Final Corynebacterium striatum 03/13/19 13:31 Biopsy - Tissue Anaerobic Culture - Preliminary Checking for anaerobes, further studies to follow. Laboratory Results 03/15/19 15:57: POC Glucose 153 H 03/15/19 21:58: POC Glucose 171 H 03/16/19 05:30: WBC 12.8 H, RBC 3.21 L, Hgb 8.2 L, Hct 24.9 L, MCV 77.6 L, MCH 25.5 L, MCHC 32.9, RDW Std Deviation 52.8 H, RDW Coeff of Lu 18.5 H, Plt Count 141 L, MPV 9.2, Immature Gran % (Auto) 2.100 H, Neut % (Auto) 88.9 H, Lymph % (Auto) 3.8 L, [place] % (Auto) 4.9, Eos % (Auto) 0.2, Baso % (Auto) 0.1, Absolute Neuts (auto) 11.4 H, Absolute Lymphs (auto) 0.48 L, Nucleated RBC % 0, Differential Comment SCANNED, Target Cells 2+ 03/16/19 05:30: Sodium 139, Potassium 4.1, Chloride 105, Carbon Dioxide 23.0, BUN 27 H, Creatinine 4.00 H, Estim Creat Clear Calc 13.68, Est GFR (MDRD) Af Amer 16 L, Est GFR (MDRD) Non-Af 13 L, BUN/Creatinine Ratio 6.8 L, Glucose 182 H , Calcium 8.5, Phosphorus 3.3, Albumin 1.4 L 03/16/19 06:45: POC Glucose 174 H 03/16/19 11:24: POC Glucose 197 H 03/16/19 14:28: Ammonia < 10.0 L Current Medications Bupropion HCl (Wellbutrin Xl) 300 mg PO DAILY [facility] Last Admin: 03/16/19 10:59 Dose: Not Given Documented by: Calamine/Phenol (Calmoseptine Ointment) 1 applic TOPICAL BID [facility]; Protocol Last Admin: 03/16/19 10:52 Dose: 1 applicatio Documented by: Glucagon () 1 mg IM .X1 PRN PRN Reason: Hypoglycemia Heparin Sodium (Porcine) (Heparin Na) 5,000 unit SC Q12 [facility] Last Admin: 03/16/19 10:54 Dose: 5,000 unit Documented by: Dextrose (Dextrose 10%-Water) 250 mls @ 999 mls/hr IV X1 PRN; Protocol PRN Reason: HYPOGLYCEMIA Ceftriaxone Sodium (Rocephin) 1 gm in 50 mls @ 100 mls/hr IV Q24 [facility] Last Infusion: 03/16/19 11:24 Dose: Infused Documented by: Mirtazapine (Remeron) 15 mg PO QHS [facility] Last Admin: 03/15/19 22:03 Dose: Not Given Documented by: Nutritional Formula (Nepro Carb Steady) 120 ml PO 4X/DAY [facility] Last Admin: 03/16/19 13:05 Dose: Not Given Documented by: Nystatin (Mycostatin Powder) 1 applic TOPICAL BID [facility]; Protocol Last Admin: 03/16/19 10:59 Dose: 1 applicatio Documented by: Ondansetron HCl (Zofran Odt) 4 mg PO Q6H PRN PRN Reason: NAUSEA/VOMITING Last Admin: 03/14/19 20:45 Dose: 4 mg Documented by: Polyethylene Glycol (Miralax) 17 gm PO DAILY [facility] Last Admin: 03/16/19 10:58 Dose: Not Given Documented by: Pregabalin (Lyrica) 50 mg PO DAILY [facility] Last Admin: 03/16/19 10:58 Dose: Not Given Documented by: Sodium Chloride () 10 - 40 ml IV UD PRN PRN Reason: SALINE FLUSH Last Admin: 03/14/19 12:00 Dose: 40 ml Documented by: Sodium Hypochlorite (Dakins Solution 0.25% (1/2 Strength)) 1 applic TOPICAL DA [facility]; Protocol Last Admin: 03/16/19 08:45 Dose: 1 applicatio Documented by: Venlafaxine HCl (Effexor Xr) 75 mg PO DAILY [facility] Last Admin: 03/16/19 10:58 Dose: Not Given Documented by: STROKE Vital Signs/Narrative: Vital Signs BP 03/16/19 15:10 90/45 L Medical Necessity - Tobacco Use Smoking Status: Never smoker Tobacco Use: Non-smoker Assessment/Plan All Active Problems (Last Reviewed 02/12/19 @ 20:40 by Virgil Murray DO) Open wound of right lower extremity with complication (Acute) Open wound of left lower extremity with complication (Acute) Problem with dialysis access (Acute) Encephalopathy acute (Acute) Necrotizing soft tissue infection (Acute) Calciphylaxis (Acute) Lower extremity weakness (Acute) Generalized weakness (Acute) Syncope (Acute) 1. Infected necrotic leg wounds * s/p incision and drainage as well as excisional debridement of anterolateral thighs bilaterally * today is POD 3 * wound cultures were positive for actinomyces * plastic surgery and ID on board * wbc is 12.8 today. * ID on board. Per ID, to continue with IM ceftriaxone till she enters hospice care after the holidays. Prescription written. 2. ESRD on HD * has dialysis via catheter in chest as her peritoneal dialysis catheter failed. * For dialysis today. She is to be on a Saturday dialysis schedule [place] [facility] * nephrology on board * 3. Type 2 diabetes mellitus * diet controlled * last A1C (02/17) was 5.6. * did have some episodes of hypoglycemia on 03/10/19, with blood sugar going as low as 46. * will monitor. * 4. Depression: * Patient does appear to be profoundly depressed. She is also not been eating the mother since has been going on about 5 to 6 weeks. Of note, hospitalist informed mother that during her admission over the last few weeks, patient has been in such a depressed state and so this is not new. Mother expresses concerns that patient has not been eating. Nortriptyline discontinued and patient started on Remeron but patient refused Remeron yesterday. * Patient encouraged to be compliant with her antidepressants. * also on wellbutrin * DVT prophylaxis: heparin Disposition: * patient affirmed that she is interested in discussing palliative care * I had another extensive discussion with patient and her mother * Patient's mother had concerns that patient would be sent to another hospital form [facility] or if she deteriorated was more lethargic as he did not know her prior to her being admitted there. Hospitalist counseled mother that we had no control over management of patients at [facility]. The [place] [facility] [place] staff will therefore do what they felt was in the best interest of the patient if that evening involved sending her to the hospital as needed. * Palliative care team at [facility] to set up meeting with yaa macario's mother and family when she arrives there to educate them about options that they have available and palliative care services. * Patient's mother prefers the patient be discharged to the [place] [facility] [place] tomorrow as she would rather that she arrives there early in the day instead of late in the evening. * Plan is for discharge to [facility] tomorrow morning. * Code Visit Inpatient E&M: 56952 Subs Hosp L2
--- NOTE | 2019-03-16 18:13 | NURSING ---
CHANGED OUTER DRSG TO BILAT THIGHS BECAUSE GOT SOILED. COVERED W/4X4 GAUZE & MEDIPORE TAPE.
--- NOTE | 2019-03-16 18:28 | DIALYSIS ---
Hemodialysis x 3.75 hours completed. Pt tolerated tx fair. Fluid balance -1400ml. Heparin 1000units/ml to close HD CVC ports to fill volume. Report given to JULITO Vital. Pt stable
--- NOTE | 2019-03-17 | NURSING ---
pt refused oral hydration
[2019-03-17 03:05] VITALS: BP 134/77; PULSE 103; RESP 18; TEMP 37.4; O2SAT 100
--- NOTE | 2019-03-17 07:32 | NURSING ---
called report to JULITO Carrillo at [facility]
[2019-03-17 08:00] VITALS: BP 121/64; PULSE 62; RESP 14; TEMP 37.6; O2SAT 97
--- NOTE | 2019-03-17 08:39 | NURSING ---
Pt is scheduled to be transported to [facility] in [place] this am. Dressing will be left intact since nursing will assess wounds once patient arrives there.
--- NOTE | 2019-03-17 16:14 | PCM.DC.SUM ---
Discharge Date and Diagnosis Date of Admission: 03/09/19 Date of Discharge: 03/17/19 - Primary Discharge Diagnosis Necrotic bilateral thigh wounds - Secondary Discharge Diagnosis Chronic Problems (Last Reviewed 02/12/19 @ 20:40 by Virgil Murray DO) Anemia in chronic illness (Chronic) Ulcer of right thigh (Chronic) Ulcer of left thigh (Chronic) Skin necrosis (Chronic) bilateral thighs Patient on peritoneal dialysis (Chronic) ESRD (end stage renal disease) (Chronic) Debility (Chronic) Gastroparesis (Chronic) Orthostatic hypotension (Chronic) Chronic renal failure, stage 4 (severe) (Chronic) Morbid obesity (Chronic) HTN (hypertension) (Chronic) Bilateral hydronephrosis (Chronic) Iron deficiency anemia (Chronic) Type II diabetes mellitus (Chronic) Coronary artery disease (Chronic) Chronic low back pain (Chronic) Hydroureter (Chronic) Bladder outlet obstruction (Chronic) Hospital Course and Treatment Consultations 03/09/19 16:53 Consult: Onc/Wound/produce weigher Routine Comment: Infectious diseases- Dr Hernández nephrology- Dr Odonnell plastic surgery- Dr Cuevas Operations: None Procedures: None Summary of Care Provided: The patient is a 43 year old F with an extensive past medical history as listed. She was admitted through the ED on 03/09/1990 with a complaint of worsening bilateral thigh ulcers. Patient was status post debridement for bilateral thigh skin necrosis and pathology was negative for calciphylaxis. She had had wound VAC placed and had a follow-up at the wound center on the day of discharge from where she was asked to come to the emergency room because the wounds looked infected. She had no complaints and was afebrile and had no elevated white cell count. She was admitted and managed for necrotic bilateral thigh ulcers. Plastic surgery was consulted. Nephrology was also consulted for dialysis. He had debridement of the thigh wounds done on 03/13/2019 by plastic surgery. During this admission, patient also had surgery for removal of tunneled peritoneal dialysis catheter as this peritoneal dialysis catheter had been malfunctioning necessitating placement of a tunneled hemodialysis catheter during previous admission. 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 She had initially been on Levaquin but due to limited IV access, she was started on IM ceftriaxone. Patient stay was complicated by patient being very lethargic and depressed. She was no really cooperating with her care and will stop her dialysis sessions before time was up. She was also refusing her medications and refusing to eat. Patient was open to being seen by palliative care. Hospitalist had extensive discussion with patient and her mother on 03/15/2019 about goals of care. Mother stated that patient was likely more depressed because her grandmother had recently and she would not be able to be present at the which was this week. Patient and mother were open to being evaluated by palliative care before they could make up their mind about goals of care. The palliative care team in [place] could not see patient as she was going to [facility] in [place] and they used a different palliative care team. Plan was therefore for patient to be seen by [facility] palliative care team when she was discharged to [facility]. Patient's nortriptyline was discontinued and she was started on Remeron to help with her appetite. Patient however refused to take Remeron as well as refusing to take most of her medications. Patient remained at her baseline status and was discharged to [facility] on 03/17/2019. She is to follow-up with primary care doctor and to follow-up with plastic surgery, nephrology and infectious disease. Patient seen and examined prior to discharge. She was alert but wouldnt really answer questions. Review systems otherwise negative. Labs and vitals reviewed. Home medication reviewed and reconciled. Of note, all her opiates medications were stopped on account of her lethargy. o/e: Vital Signs Height 5 ft 1.81 in Weight: 232 lb 5.875 oz Weight in Pounds 232.4 lbs Pulse Ox 97 Temperature 99.6 F Pulse Rate 62 Respiratory Rate 14 Blood Pressure [BP] 127/77 Blood Pressure 121/64 Blood Pressure Position [BP] Semi-Fowlers Blood Pressure Position Supine [] General: Alert, lethargic HEENT: Atraumatic, PERRLA, EOMI, Normocephalic Oral: Dry Mucosa Neck: Supple, No JVD, Negative Carotid Bruits Lungs: Clear to auscultation, Normal air movement, No rhonchi, No wheeze Cardiovascular: Regular rate, Regular Rhythm, Normal S1, Normal S2, No murmurs Abdomen: Bowel Sounds Present, Soft, Non Tender, Non-Distended, No Hepato-splenomegaly Extremities: No clubbing, No cyanosis, No edema, Capillary Refill Less than 3 Seconds, - -bilateral anterior thigh dressing Skin: No rashes, No breakdown, - - has dialysis catheter in chest Musculoskeletal: No Tenderness to Palpation of Joints or Extremities, tunneled hemodialysis catheter on chest Lymphatic: No Cervical, Supraclavicular, or Inguinal Adenopathy Neurological: Cranial nerves II-XII grossly intact, Motor Exam 5/5 strength throughout Psych/Mental Status: - - very flat affect Plan is as above. For discharge to [facility] today. - Physical Exam Vitals/I&O's: Vital Signs Temp Pulse Resp BP Pulse Ox 99.6 F H 62 14 121/64 H 97 03/17/19 08:00 03/17/19 08:00 03/17/19 08:00 03/17/19 08:00 03/17/19 08:00 Oxygen Flow Rate (L/min) 100 Oxygen Delivery Method Room Air Weight: 232 lb 5.875 oz Body Mass Index (BMI) 42.8 Finger Stick Blood Glucose 126 Intake and Output for Last 24 Hours 03/15/19 03/16/19 03/17/19 23:59 23:59 23:59 Intake Total 50 / 50 110 / 110 Output Total 50 / 50 0 / 0 Balance 0 / 0 110 / 110 Microbiology Past 72 Hours 03/13/19 13:31 Tissue - Leg Gram Stain - Final 03/13/19 13:31 Tissue - Leg Wound Culture - Final Corynebacterium striatum 03/13/19 13:31 Tissue - Leg Anaerobic Culture - Preliminary Checking for anaerobes, further studies to follow. 03/13/19 13:31 Biopsy - Tissue Gram Stain - Final 03/13/19 13:31 Biopsy - Tissue Wound Culture - Final Corynebacterium striatum 03/13/19 13:31 Biopsy - Tissue Anaerobic Culture - Preliminary Checking for anaerobes, further studies to follow. Discharge Diet: Renal Diet Discharge Activity: Return to Normal Activity Weight Bearing Status: Weight bearing as tolerated Call your doctor if your incision/area has: Increased Pain/ Swelling, Foul Smelling Discharge, Swelling at the incision site Call your doctor if you observe: Fever of 101 or Higher Home Medications: Medications to take at Discharge Ergocalciferol [Vitamin D] 50,000 unit PO WE 04/18/17 Aspirin E.C. [Ecotrin] 81 mg PO DAILY@0800 07/15/18 Bupropion HCl [Bupropion Xl] 300 mg PO DAILY 09/22/18 Ondansetron [Zofran Odt] 4 mg PO Q8H PRN PRN #10 tab 02/12/19 Docusate Sodium [Colace] 100 mg PO BID cap 02/23/19 Nepro with Carbsteady [Nepro Carb Steady] 120 ml PO TIDCM liquid 02/23/19 Polyethylene Glycol 3350 [Miralax] 17 gm PO DAILY packet 02/23/19 Furosemide 40 mg PO DAILY 02/25/19 Pregabalin [Lyrica] 50 mg PO DAILY #0 02/27/19 Nystatin [Nystop] 60 gm TP BID 03/09/19 Venlafaxine HCl [Venlafaxine HCl ER] 75 mg PO DAILY 03/09/19 Ceftriaxone Sodium [Ceftriaxone] 1 gm IM DAILY 30 Days #30 vial 03/13/19 Mirtazapine [Remeron] 15 mg PO QHS #30 tab 03/16/19 Following Prescrptions Were Given to Patient: Ceftriaxone Sodium [Ceftriaxone] 1 gm IM DAILY 30 Days #30 vial Prescription Printed Mirtazapine [Remeron] 15 mg PO QHS #30 tab Prescription Printed Primary Care Physician: Melvi Eastman MD [Primary Care Provider] - Please follow up with your Primary Care Physician in: one week Please Follow Up With: Betty Odonnell DO When: 1-2 weeks Please Follow Up With: Erick Cuevas MD When: 1-2 weeks Please Follow Up With: Mohinder Hernández MD When: 1-2 weeks Disposition: [facility] facility Minutes spent on discharge:: 50 Patient Condition:: Stable Medical Necessity - Tobacco Use Smoking Status: Never smoker Tobacco Use: Non-smoker Meaningful Use Info Meaningful Use Diagnoses (Choose all that apply): None applicable Code Visit Inpatient E&M: 40866 Disch Hosp
== END 2019-03-17 08:45 | disposition skilled nursing facility (03) | DRG 264 ==
LOC: ED 14:04 → MS3 15:41
PROVIDERS: Anesthesiology; Surgery; Admitting Provider Internal Medicine; Emergency Provider Emergency Medicine; Family Provider Internal Medicine; PCP Internal Medicine; Referring Provider Internal Medicine; Visit Provider Student in an Organized Health Care Education/Training Program
PROC: 0WPG03Z Removal of Infusion Device from Peritoneal Cavity, Open Approach (ICD-10-PCS; principal; 2019-03-10 07:15)
PROC: 0JBM0ZZ Excision of Left Upper Leg Subcutaneous Tissue and Fascia, Open Approach (ICD-10-PCS; principal; 2019-03-13 11:05)
DX: I96 Gangrene, not elsewhere classified (principal); N18.6 End stage renal disease; T85.611A Breakdown (mechanical) of intraperitoneal dialysis catheter, initial encounter; I12.0 Hypertensive chronic kidney disease with stage 5 chronic kidney disease or end stage renal disease; Z68.41 Body mass index [BMI] 40.0-44.9, adult; L97.122 Non-pressure chronic ulcer of left thigh with fat layer exposed; L97.112 Non-pressure chronic ulcer of right thigh with fat layer exposed; E11.622 Type 2 diabetes mellitus with other skin ulcer; Z99.2 Dependence on renal dialysis; K31.84 Gastroparesis; E11.43 Type 2 diabetes mellitus with diabetic autonomic (poly)neuropathy; E11.22 Type 2 diabetes mellitus with diabetic chronic kidney disease; I25.10 Atherosclerotic heart disease of native coronary artery without angina pectoris; E11.65 Type 2 diabetes mellitus with hyperglycemia; E66.01 Morbid (severe) obesity due to excess calories; B96.89 Other specified bacterial agents as the cause of diseases classified elsewhere; G89.29 Other chronic pain; M54.5 Low back pain; D50.9 Iron deficiency anemia, unspecified; D63.8 Anemia in other chronic diseases classified elsewhere; Z79.899 Other long term (current) drug therapy
CPT/HCPCS: 36415; 80048; 80069; 82140; 82947; 82962; 83036; 83605; 84703; 85025; 85027; 85610; 85730; 86705; 86706; 86850; 86900; 86901; 86920; 86922; 87015; 87070; 87075; 87076; 87077; 87102; 87106; 87116; 87176; 87205; 87206; 87340; 88305; 90937; 93005; 97162; 97166; 97802; 99215; 99285; J7030; J7040; P9016; A4216; G0257; G0463; J2405; Q5106